=== PATIENT | male | born 1945 | race Caucasian/White ===

== ENCOUNTER 2024-07-21 10:53 | Emergency (ER) | payer MEDICARE, MEDICAID, SELFPAY ==
--- NOTE | 2024-07-21 10:52 | PC.NURSE ---
7.5ETT 24 AT LIP ON ARRIVAL SHIVA CONTINUES EPI GIVEN AT 1051 CALCIUM GIVEN AT 1051 18G L FOREARM AT 1052 BICARB AT 1052 SHIVA PAUSED AT 1053 ASYSTOLE NO FEM PULSE NOTED SHIVA RESUMED EPI AT 1054 SHIVA PAUSED AT 1055 NO CARDIAC WALL MOTION NO PALPABLE PULSE. TIME OF 1055.
--- NOTE | 2024-07-21 11:35 | ED_ITS ---
HPI - CPR General Chief Complaint: Cardiac Arrest/CPR Stated Complaint: cardiac arrest Time Seen by Provider: 07/21/24 11:01 History of Present Illness HPI narrative: 78-year-old male with no cardiac history presents to the emergency department from [facility] in cardiac arrest. Patient had a witnessed cardiac arrest as his roommate heard a loud thud in the room and noticed that the patient was on the ground, agonal respirations and barely breathing. 911 was called in EMS arrived and started chest compressions. Patient underwent high quality CPR with supraglottic airway established by EMS. Bilateral IVs were established by EMS. He received a total of 5 mg of epinephrine serially during resuscitative efforts prior to transport and arrival to the ED. Patient was PE a on the monitor the entire time for EMS. He was brought back into Room 9 as a medical resuscitation at this time with CPR ongoing. Review of Systems Review of Systems: ROS unobtainable: Yes unobtainable due to medical condition Exam Narrative: GENERAL: Cardiac arrest HEAD: [Normocephalic, atraumatic.] EYES: 4 mm, fixed and dilated ENT: Dry mucous membranes NECK: Supple. CHEST: Clear to auscultation with bag-valve mask HEART: Pulsations felt with Toni device in the femoral vessels otherwise no cardiac activity or heart sounds ABDOMEN: Distended EXTREMITIES: Normal range of motion. [No edema.] SKIN: Warm, dry, no rash. NEURO: GCS 3 Procedures Intubation Intubation #1: Intubation Date: 07/21/24 Intubation Time: 10:50 Time out performed: Yes sedative: none Mg Given: 0 Mg Given: 0 Laryngoscope: fiber optic video scope Tube Size (cm): 7.5 Method of Intubation: orotracheal Number of Attempts: 1 Tube Secured Depth (cm): 24 Tube Secured Location: lips Tube Placement Confirmation: visualized tube passing through cords, equal breath sounds bilaterally, no breath sounds over epigastrium and confirmation by capnometry Patient Tolerated Procedure: well and no complications Intubation Complications: none MDM - Cardiac Arrest/CPR MDM Narrative Medical decision making narrative: 78-year-old male presenting in cardiac arrest. Was witnessed cardiac arrest with PE a is initial rhythm. Total of 5 mg epinephrine EN route prior to arrival to the ER. Total down time prior to arrival 25 minutes. High-quality CPR was continued upon arrival to the emergency department. Additional IV access was established by nursing staff, supraglottic airway was exchanged for endotracheal tube without any difficulties on 1st pass success with glide scope. Initial pulse check showed asystole and he was given additional mg of epinephrine as well as calcium chloride and bicarbonate. Additional rounds of CPR conducted with serial pulse checks showing asystole despite resuscitative efforts. Cardiac views on ultrasound throughout resuscitation which shows cardiac standstill with clotting of blood left ventricle, total down time 35 minutes and additional CPR resuscitative efforts deemed futile. Time of called at 10:55 a.m by myself. I spoke to the 2 nieces which are his next of kin informed them of patient's presentation and here in the emergency department. All the questions were answered, view arrangements are made. Differential Diagnosis Differential diagnosis: Likely acute massive pulmonary embolism, acute respiratory failure, acute myocardial infarction, cardiac arrest, sudden cardiac and other Medical Records Attestation: I reviewed the patient's medical records. Critical Care Time Critical Care Time Critical Care Time: Yes Total Critical Care Time: 30 Discharge Plan Discharge Clinical Impression: Cardiac arrest Patient Disposition: Condition: Patient Language: Hungarian Follow-up/Referrals: Seymour,MD Regan [Primary Care Provider] - Time of Disposition: 10:55
--- OUTSIDE RECORDS SUMMARY | 2024-07-28 14:05 | XMS_ITS | Encounter Summary ---
Author Organization [facility] Address [address] [place] [address] Phone Care Team Providers Care Fill Manager Name Role Phone Irving Jeffries MD Primary Care Provider [phone] Ton Ling [employer], PROFESSOR OF PUBLIC ADMINISTRATION Unavailable Ame Scanlon [employer], PROFESSOR OF PUBLIC ADMINISTRATION Unavailable Michael Ahmadi MD Unavailable [phone] Reason for Visit * Reason Comments Fall Encounter Details Date Type Department Care Team (Late st Contact Info) Description 04/12/2024 1:35 PM CDT - 04/12/2024 2:18 PM CDT Emergency [facility] Emergency [address] [place] [id number] João Ba, DO [address] [place] [address] Fall Discharge Disposition: Discharged to home or Selfcare Social History Tobacco Use Types Packs/Day Years Used Date Smoking Tobacco: Former Cigarettes 2 20 Passive Smoke Exposure: Past Smokeless Tobacco: Never Alcohol Use Standard Drinks/Week Comments Not Currently 0 (1 standard drink = 0.6 oz pur e alcohol) [facility] Utilities Answer Date Recorded In the past 12 months has [employer], gas, oil, or water [employer] threatened to shut off services in your home? Patient declined 09/03/2023 Social Connection and Isolation Panel [NHANES] A nswer Date Recorded In a typical week, how many times do you talk on the phone with family, friends, or neighbors? Patient declined 09/03/2023 How often do you get togethe r with friends or relatives? Patient declined 09/03/2023 How often do you attend yazdanism or anabaptist serv ices? Patient declined 09/03/2023 Do you belong to any clubs o r organizations such as yazdanism groups, unions, fraternal or athletic groups, or school groups? Patient declined 09/03/2023 How often do you attend meet ings of the clubs or organizations you belong to? Patient declined 09/03/2023 Are you , , di vorced, , never , or living with a partner? Patient declined 09/03/2023 AUDIT-C Answer Date Recorded Q1: How often do you have a drink containing alc ohol? Patient declined 09/03/2023 Q2: How many drinks containi ng alcohol do you have on a typical day when you are drinking? Patient declined 09/03/2023 Q3: How often do you have si x or more drinks on one occasion? Patient declined 09/03/2023 Overall Financial Resource Strain (CARDIA) Answe r Date Recorded How hard is it for you to pa y for the very basics like food, housing, medical care, and heating? Patient declined 09/03/2023 PHQ-2 Answer Date Recorded Total Score - Questions 1-9 0 07/31 [facility] Occupat ional [facility] - Occupational Stress Questionnaire Answer Date Recorded Do you feel stress - tense, restless, nervous, or anxious, or unable to sleep at night because your mind is troubled all the time - these days? Patient declined 09/03/2023 Exercise Vital Sign Answer Date Recorde d On average, how many days pe r week do you engage in moderate to strenuous exercise (like a brisk walk)? Patient declined On average, how many minutes do you engage in exercise at this level? Patient declined 09/03/2023 Hunger Vital Sign Answer Date Recorded Within the past 12 months, y ou worried that your food would run out before you got the money to buy more. Patient declined Within the past 12 months, t he food you bought just didn't last and you didn't have money to get more. Patient declined 10/2023 PRAPARE - Transportation Answer Date Re corded In the past 12 months, has l ack of transportation kept you from medical appointments or from getting medications? Patient declined 09/03/2023 In the past 12 months, has l ack of transportation kept you from meetings, work, or from getting things needed for daily living? Patient declined 09/03/2023 Housing Stability Vital Sign Answer Matt e Recorded In the last 12 months, was t here a time when you were not able to pay the mortgage or rent on time? Patient declined 09/03/19 24 In the last 12 months, how many places have you lived? 1 09/03/2023 In the last 12 months, was t here a time when you did not have a steady place to sleep or slept in a assisted (including now)? Patient declined 09/03/2023 Sexually Active Control Partners Comments Never Sex and Gender Information Value Date Recorded Sex Assigned at Not on file Legal Sex Male 11:18 PM CDT Gender Identity Not on file Sexual Orientation Not on file documented as of this encounter Last Filed Vital Signs Vital Sign Reading Time Taken Comments Blood Pressure 113/81 04/12/2024 2:15 PM CDT Pulse 73 04/12/2024 2:15 PM CDT Temperature 36.2 ??C (97.2 ??F) 04/12/2024 11:33 AM C DT Respiratory Rate 18 04/12/2024 11:33 AM CDT Oxygen Saturation 96% 04/12/2024 2:15 PM CDT Inhaled Oxygen Concentration - - Weight 104.3 kg (230 lb) 04/12/2024 11:33 AM CDT Height 182.9 cm (6') 04/12/2024 11:33 AM CDT Body Mass Index 31.19 04/12/2024 11:33 AM CDT documented in this encounter Discharge Instructions * Discharge Instructions* João Ba, - 04/12/2024 1:59 PM CDT Follow up with your doctor within 24hrs Take Medications as prescribed. Return to ER immediately at anytime if symptoms worsen/ persists, chest pain, shortness of breath, lightheadedness, loss of consciousness, numbness/weakness/tingling in your arms or legs. If patient is using abdominal or rib muscles to breathe or breathing faster than normal. Return if fevers greater than 101, continuous vomiting, inability to drink fluids or tolerate solids by mouth, dehydration, lethargy, if patient not acting normally or any other concerns you may have. Please followup with your primary care doctor or the physician you have been given here in the emergency department prior to any travel. GO CARDINALS!!! GO BLUES !!! GO Spor!!! GO righTune!!! documented in this encounter Medications at Time of Discharge acetaminophen (TYLENOL) 325 MG Tablet Take 2 Tablets by mouth every 6 hours as needed for Mild or more severe pain. cloZAPine (CLOZARIL) 25 MG Tablet Take 50 mg by mouth nightly. Clozapine 50 MG Tablet 09/07/2023 finasteride (PROSCAR) 5 MG Tablet 09/11/2023 metoprolol tartrate (LOPRESSOR) 25 MG Tablet Take 25 mg by mouth 2 times daily. Psyllium (REGULOID PO) Take by mouth. sertraline (ZOLOFT) 50 MG Tablet Take 1 Tablet by mouth daily. tamsulosin (FLOMAX) 0.4 MG Capsule 09/11/2023 amLODIPine (NORVASC) 10 MG Tablet Take 1 Tablet by mouth daily. 30 Tablet 11 03/13/2024 4 cloZAPine (CLOZARIL) 100 MG Tablet Take 50 mg by mouth daily. 4 dexamethasone (DECADRON) 4 MG Tablet Take 5 tabs PO BID for 4 days 40 Tablet 01/18/2024 4 eltrombopag (Promacta) 50 MG Tablet Take 1 Tablet by mouth every morning (before breakfast). 30 Tablet 5 02/29/2024 4 omeprazole (PriLOSEC) 20 MG CAPSULE DELAYED RELEASE Take 1 Capsule by mouth in the morning and at bedtime. 60 Capsule 3 11/07/2023 4 polyethylene glycol (GLYCOLAX, MIRALAX) 17 g PackIndications: Constipation Take 1 Packet by mouth 2 times daily as needed for Constipation - 1st line. Dissolve in 4-8 oz of liquid. Indications: Constipation 90 Packet 09/05/2023 4 senna (SENOKOT) 8.6 MG Tablet Take 1 Tablet by mouth daily. 30 Tablet 09/05/2023 4 documented as of this encounter ED Notes * Shelley Cancino RN - 04/12/2024 2:18 PM CDT Patient discharged. Discharge instructions and patient educational material reviewed with patient; questions and concerns addressed; patient verbalizes understanding, using teach back. Patient was given 0 prescriptions. Patient discharged per wheelchair mode with self as responsible republican. * João Ba DO - 04/12/2024 1:59 PM CDT Chief Complaint Patient presents with Fall 78-year-old male brought in secondary to fall and possible head trauma and pain. Mild, constant, nonradiating, no alleviating factors, multiple fall history in the past, sent in from assisted. Denies any recent illness or sick contacts or any recent travel. Review of systems negative otherwise. No current facility-administered medications for this encounter. Current Outpatient Medications Medication Sig Dispense Refill acetaminophen (TYLENOL) 325 MG Tablet Take 2 Tablets by mouth every 6 hours as needed for Mild or more severe pain. amLODIPine (NORVASC) 10 MG Tablet Take 1 Tablet by mouth daily. 30 Tablet 11 cloZAPine (CLOZARIL) 100 MG Tablet Take 50 mg by mouth daily. (Patient not taking: Reported on 01/17/2024) cloZAPine (CLOZARIL) 25 MG Tablet Take 50 mg by mouth nightly. Clozapine 50 MG Tablet dexamethasone (DECADRON) 4 MG Tablet Take 5 tabs PO BID for 4 days (Patient not taking: Reported on04/03/2024) 40 Tablet 0 eltrombopag (Promacta) 50 MG Tablet Take 1 Tablet by mouth every morning (before breakfast). (Patient not taking: Reported on 04/03/2024) 30 Tablet 5 finasteride (PROSCAR) 5 MG Tablet metoprolol tartrate (LOPRESSOR) 25 MG Tablet Take 25 mg by mouth 2 times daily. omeprazole (PriLOSEC) 20 MG CAPSULE DELAYED RELEASE Take 1 Capsule by mouth in the morning and at bedtime. 60 Capsule 3 polyethylene glycol (GLYCOLAX, MIRALAX) 17 g Pack Take 1 Packet by mouth 2 times daily as needed for Constipation - 1st line. Dissolve in 4-8 oz of liquid. Indications: Constipation 90 Packet 0 Psyllium (REGULOID PO) Take by mouth. senna (SENOKOT) 8.6 MG Tablet Take 1 Tablet by mouth daily. 30 Tablet 0 sertraline (ZOLOFT) 50 MG Tablet Take 1 Tablet by mouth daily. tamsulosin (FLOMAX) 0.4 MG Capsule No Known Allergies Past Medical History Positives Diagnosis Date Anxiety Arthritis GERD (gastroesophageal reflux disease) Hyperlipidemia Hypertension Major depressive disorder Schizophrenia (HCC) Past Surgical History: Procedure Laterality Date NO PREVIOUS SURGERY Social History Socioeconomic History Marital status: Single Spouse name: Not on file Number of children: Not on file Years of education: Not on file Highest education level: Not on file Occupational History Not on file Tobacco Use Smoking status: Former Current packs/day: 2.00 Average packs/day: 2.0 packs/day for 20.0 years (40.0 ttl pk-yrs) Types: Cigarettes Passive exposure: Past Smokeless tobacco: Never Vaping Use Vaping status: Never Used Substance and Sexual Activity Alcohol use: Not Currently Drug use: Never Sexual activity: Never Other Topics Concern Not on file Social History Narrative Not on file Social Determinants of Health Financial Resource Needs: Patient Declined (09/03/2023) Overall Financial Resource Strain (CARDIA) Difficulty of Paying Living Expenses: Patient declined Food Insecurity Needs: Patient Declined (09/03/2023) Hunger Vital Sign Worried About Running Out of Food in the Last Year: Patient declined Ran Out of Food in the Last Year: Patient declined Transportation Needs: Patient Declined (09/03/2023) PRAPARE - Transportation Lack of Transportation (Medical): Patient declined Lack of Transportation (Non-Medical): Patient declined Physical Activity: Patient Declined (09/03/2023) Exercise Vital Sign Days of Exercise per Week: Patient declined Minutes of Exercise per Session: Patient declined Stress: Patient Declined (09/03/2023) [facility] - Occupational Stress Questionnaire Feeling of Stress : Patient declined Social Integration: Patient Declined (09/03/2023) Social Connection and Isolation Panel [NHANES] Frequency of Communication with Friends and Family: Patient declined Frequency of Social Gatherings with Friends and Family: Patient declined Attends Buddhism Services: Patient declined Active Member of Clubs or Organizations: Patient declined Attends Club or Organization Meetings: Patient declined Marital Status: Patient declined Intimate Partner Violence: Patient Declined (09/03/2023) Humiliation, Afraid, Rape, and Kick questionnaire Fear of Current or Ex-Partner: Patient declined Emotionally Abused: Patient declined Physically Abused: Patient declined Sexually Abused: Patient declined Housing Stability: Patient Declined (09/03/2023) Housing Stability Vital Sign Unable to Pay for Housing in the Last Year: Patient declined Number of Places Lived in the Last Year: 1 Unstable Housing in the Last Year: Patient declined BP 121/51 Pulse 72 Temp 97.2 ??F (36.2 ??C) (Tympanic) Resp 18 Ht 6' (1.829 m) Wt 230 lb (104.3 kg) SpO2 98% BMI 31.19 kg/m?? Review of Systems Physical Exam Vitals and nursing note reviewed. Constitutional: General: He is not in acute distress. Appearance: He is well-developed. He is not diaphoretic. Comments: Age-appropriate, well-appearing, dapper, no family at the bedside, no acute distress. HENT: Head: Normocephalic and atraumatic. Right Ear: External ear normal. Left Ear: External ear normal. Nose: Nose normal. Mouth/Throat: Mouth: Mucous membranes are moist. Pharynx: No oropharyngeal exudate. Eyes: General: Right eye: No discharge. Left eye: No discharge. Conjunctiva/sclera: Conjunctivae normal. Pupils: Pupils are equal, round, and reactive to light. Neck: Thyroid: No thyromegaly. Vascular: No JVD. Trachea: No tracheal deviation. Cardiovascular: Rate and Rhythm: Normal rate and regular rhythm. Heart sounds: Normal heart sounds. No murmur heard. Pulmonary: Effort: Pulmonary effort is normal. No respiratory distress. Breath sounds: Normal breath sounds. No wheezing or rales. Chest: Chest wall: No tenderness. Abdominal: General: Bowel sounds are normal. There is no distension. Palpations: Abdomen is soft. There is no mass. Tenderness: There is no abdominal tenderness. There is no guarding or rebound. Musculoskeletal: General: No tenderness. Normal range of motion. Cervical back: Normal range of motion and neck supple. Lymphadenopathy: Cervical: No cervical adenopathy. Skin: General: Skin is warm and dry. Capillary Refill: Capillary refill takes less than 2 seconds. Coloration: Skin is not pale. Findings: No erythema or rash. Neurological: Mental Status: He is alert and oriented to person, place, and time. Cranial Nerves: No cranial nerve deficit. Motor: No abnormal muscle tone. Coordination: Coordination normal. Deep Tendon Reflexes: Reflexes are normal and symmetric. Psychiatric: Behavior: Behavior normal. Thought Content: Thought content normal. Procedures Recent Results (from the past 24 hour(s)) POCT Glucose Result Value Ref Range GLUCOSE,BEDSIDE POCT 134 (H) 70 - 99 mg/dL CMP (Comprehensive Metabolic Panel) Result Value Ref Range SODIUM 138 136 - 145 mmol/L POTASSIUM 4.5 3.5 - 5.1 mmol/L CHLORIDE 107 98 - 107 mmol/L CO2, VENOUS 22 22 - 30 mmol/L ANION GAP 13.5 <18.0 mmol/L GLUCOSE 130 (H) 70 - 99 mg/dL BUN 16 8 - 26 mg/dL CREATININE, BLOOD 1.02 0.70 - 1.30 mg/dL BUN/CREATININE RATIO 16 12 - 20 ratio TOTAL PROTEIN 7.0 6.3 - 8.2 g/dL ALBUMIN 4.3 3.5 - 5.0 g/dL A/G RATIO 1.6 1.0 - 2.2 CALCIUM 9.2 8.7 - 10.5 mg/dL T BILI 0.3 0.2 - 1.2 mg/dL SGOT (AST) 22 5 - 34 U/L SGPT (ALT) 20 0 - 55 U/L ALKALINE PHOSPHATASE 77 40 - 150 U/L GFR, ESTIMATED >60 >=60 GFR, EST. >60 >=60 GFR, EST. NONAFRICAN >60 >=60 TROPONIN I, HIGH SENSITIVITY (HSTRP) Result Value Ref Range TROPONIN I, HIGH SENSITIVITY- GUTIERREZ 5 <=35 ng/L CBC with Auto Differential Result Value Ref Range WBC 8.24 4.00 - 12.00 10(3)/mcL RBC 4.46 4.40 - 5.80 10(6)/mcL HEMOGLOBIN (HGB) 13.8 13.0 - 16.5 g/dL HEMATOCRIT (HCT) 42.7 38.0 - 50.0 % MCV 95.7 82.0 - 96.0 fL MCH 30.9 26.0 - 32.0 pg MCHC 32.3 31.0 - 36.0 g/dL PLATELET COUNT 45 (L) 140 - 440 10(3)/mcL RDW 14.5 11.8 - 15.5 % MPV NRBC PER 100 WBC 0 RESULTS ARE CONSISTENT WITH PERIPHERAL SMEAR REVIEW Yes Imaging Results CT CERVICAL SPINE WO/ CONTRAST (Final result) Result time 04/12/24 13:30:23 Final result by Marcos Jimenez MD (04/12/24 13:30:23) Impression: IMPRESSION: No acute intracranial abnormality. No acute fracture or subluxation of the cervical spine. Narrative: EXAM DESCRIPTION: CT HEAD OR BRAIN WO CONTRAST; CT CERVICAL SPINE WO/ CONTRAST REASON FOR STUDY: Fall today without LOC, patient is unsure if he hit his head. Hx of HTN ; Ground level fall today with possible head trauma, patient is unsure if he struck his head. Hx of HTN TECHNIQUE: Axial images through the head and cervical spine, with sagittal and coronal reformatted images of the cervical spine. Automated exposure control was used as a dose optimization technique for this examination. COMPARISON: Head CT 09/03/2023 FINDINGS: HEAD: BRAIN: No acute intracranial hemorrhage, mass effect, or territorial infarct. Scattered hypodensities in the periventricular and subcortical white matter that are nonspecific but likely secondary to chronic microvascular ischemia. EXTRA-AXIAL SPACES: No abnormal extra-axial fluid collection or mass. No hydrocephalus. CALVARIUM: No acute fracture. SINUSES/MASTOIDS: Mild paranasal sinus mucosal thickening without air-fluid level. Mastoid air cells are well aerated. ORBITS: No significant abnormality. Bilateral lens replacements. OTHER: None. CERVICAL SPINE: ALIGNMENT: Slight anterolisthesis of C7 on T1. Normal craniocervical and facet alignment. VERTEBRAE: Vertebral body height is maintained with no acute fracture. DISCS: Multilevel disc height loss most advanced at C4-C7 levels. HARDWARE: None in the spine. INDIVIDUAL DISC LEVELS: Moderate cervical degenerative changes causing variable spinal canal and neural foraminal stenosis. UPPER THORACIC: Incompletely imaged. No high-grade osseous spinal canal stenosis. LUNG APICES: Pleural-parenchymal opacities characteristic of scarring. Apical emphysema. NECK SOFT TISSUES: No acute finding. OTHER: No other significant findings. THIS IS AN ELECTRONICALLY VERIFIED FINAL REPORT 04/12/2024 1:27 PM - Electronically signed by Marcos Jimenez M.D. AG: [facility] Report ID: [id number] Reading Location: [place] [address] CT HEAD OR BRAIN WO CONTRAST (Final result) Result time 04/12/24 13:30:23 Final result by Marcos Jimenez MD (04/12/24 13:30:23) Impression: IMPRESSION: No acute intracranial abnormality. No acute fracture or subluxation of the cervical spine. Narrative: EXAM DESCRIPTION: CT HEAD OR BRAIN WO CONTRAST; CT CERVICAL SPINE WO/ CONTRAST REASON FOR STUDY: Fall today without LOC, patient is unsure if he hit his head. Hx of HTN ; Ground level fall today with possible head trauma, patient is unsure if he struck his head. Hx of HTN TECHNIQUE: Axial images through the head and cervical spine, with sagittal and coronal reformatted images of the cervical spine. Automated exposure control was used as a dose optimization technique for this examination. COMPARISON: Head CT 09/03/2023 FINDINGS: HEAD: BRAIN: No acute intracranial hemorrhage, mass effect, or territorial infarct. Scattered hypodensities in the periventricular and subcortical white matter that are nonspecific but likely secondary to chronic microvascular ischemia. EXTRA-AXIAL SPACES: No abnormal extra-axial fluid collection or mass. No hydrocephalus. CALVARIUM: No acute fracture. SINUSES/MASTOIDS: Mild paranasal sinus mucosal thickening without air-fluid level. Mastoid air cells are well aerated. ORBITS: No significant abnormality. Bilateral lens replacements. OTHER: None. CERVICAL SPINE: ALIGNMENT: Slight anterolisthesis of C7 on T1. Normal craniocervical and facet alignment. VERTEBRAE: Vertebral body height is maintained with no acute fracture. DISCS: Multilevel disc height loss most advanced at C4-C7 levels. HARDWARE: None in the spine. INDIVIDUAL DISC LEVELS: Moderate cervical degenerative changes causing variable spinal canal and neural foraminal stenosis. UPPER THORACIC: Incompletely imaged. No high-grade osseous spinal canal stenosis. LUNG APICES: Pleural-parenchymal opacities characteristic of scarring. Apical emphysema. NECK SOFT TISSUES: No acute finding. OTHER: No other significant findings. THIS IS AN ELECTRONICALLY VERIFIED FINAL REPORT 04/12/2024 1:27 PM - Electronically signed by Marcos Jimenez M.D. AG: [employer] Report ID: [id number] Reading Location: [place] [address] Medical Decision Making No acute pathology at this time to warrant further workup per inpatient management. Patient notes headache has much improved, he is neurologically intact at this time. I have spoken with him at greatlength and he feels comfortable discharge home and follow-up as an outpatient with close family/frie nd observation in the outpatient setting. Clinical Impression 1. Fall 2. Acute head trauma, initial encounter Disposition: Discharge Disposition: Discharge home Condition:Stable CLINICAL IMPRESSION: 1. Fall 2. Acute head trauma, initial encounter Current Outpatient Medications Medication Instructions acetaminophen (TYLENOL) 325 MG Tablet 2 Tablets, Oral, EVERY 6 HOURS PRN amLODIPine (NORVASC) 10 mg, Oral, DAILY cloZAPine (CLOZARIL) 50 mg, DAILY cloZAPine (CLOZARIL) 50 mg, Oral, NIGHTLY Clozapine 50 MG Tablet dexamethasone (DECADRON) 4 MG Tablet Take 5 tabs PO BID for 4 days eltrombopag (PROMACTA) 50 mg, Oral, EVERY MORNING BEFORE BREAKFAST finasteride (PROSCAR) 5 MG Tablet No dose, route, or frequency recorded. metoprolol tartrate (LOPRESSOR) 25 mg, Oral, 2 TIMES DAILY omeprazole (PRILOSEC) 20 mg, Oral, 2 times daily polyethylene glycol (GLYCOLAX, MIRALAX) 17 g, Oral, 2 TIMES DAILY PRN, Dissolve in 4-8 oz of liquid. Psyllium (REGULOID PO) Oral senna (SENOKOT) 8.6 mg, Oral, DAILY sertraline (ZOLOFT) 50 MG Tablet 1 Tablet, Oral, DAILY tamsulosin (FLOMAX) 0.4 MG Capsule No dose, route, or frequency recorded. No current facility-administered medications on file prior to encounter. Current Outpatient Medications on File Prior to Encounter Medication Sig Dispense Refill acetaminophen (TYLENOL) 325 MG Tablet Take 2 Tablets by mouth every 6 hours as needed for Mild or more severe pain. amLODIPine (NORVASC) 10 MG Tablet Take 1 Tablet by mouth daily. 30 Tablet 11 cloZAPine (CLOZARIL) 100 MG Tablet Take 50 mg by mouth daily. (Patient not taking: Reported on 01/17/2024) cloZAPine (CLOZARIL) 25 MG Tablet Take 50 mg by mouth nightly. Clozapine 50 MG Tablet dexamethasone (DECADRON) 4 MG Tablet Take 5 tabs PO BID for 4 days (Patient not taking: Reported on04/03/2024) 40 Tablet 0 eltrombopag (Promacta) 50 MG Tablet Take 1 Tablet by mouth every morning (before breakfast). (Patient not taking: Reported on 04/03/2024) 30 Tablet 5 finasteride (PROSCAR) 5 MG Tablet metoprolol tartrate (LOPRESSOR) 25 MG Tablet Take 25 mg by mouth 2 times daily. omeprazole (PriLOSEC) 20 MG CAPSULE DELAYED RELEASE Take 1 Capsule by mouth in the morning and at bedtime. 60 Capsule 3 polyethylene glycol (GLYCOLAX, MIRALAX) 17 g Pack Take 1 Packet by mouth 2 times daily as needed for Constipation - 1st line. Dissolve in 4-8 oz of liquid. Indications: Constipation 90 Packet 0 Psyllium (REGULOID PO) Take by mouth. senna (SENOKOT) 8.6 MG Tablet Take 1 Tablet by mouth daily. 30 Tablet 0 sertraline (ZOLOFT) 50 MG Tablet Take 1 Tablet by mouth daily. tamsulosin (FLOMAX) 0.4 MG Capsule João Ba D.O. Emergency/Tactical Medicine Attention patients/caregivers: Secondary to the [employer] medical cares act notes and test results are now immediately released to patients and caregivers. If you are the patient referenced in this documentation or a caregiver thereof and are reading this chart, please be aware that there is medical terminology, abbreviations, and methods of communication which are intended for medical professional interpretation only. If you have questions, please contact your primary care provider. If there are specific physician's or contact information referenced in this chart do not use it as it may be out of date. Certain laboratory values or radiologic studies may have findings that appear abnormal, these were reviewed by your physician and do not require further emergent or urgent medical attention. If you have further questions about any testing performed please contact your primary care provider for clarification or further discussion. Portions of this chart may have been completed with voice recognition software and may contain slight errors unrecognizable by the users. This would in no way affect the patient's care and is meant to improve length and quality of medical decision making and history taking. * Rolando Chaudhry RN - 04/12/2024 11:33 AM CDT Arrived via [facility] with complaints of fall this AM. Patient denies LOC but does not remember if hehit his head. Patient denies any pain. Alert and oriented to place and situation documented in this encounter Miscellaneous Notes * PatientPass Patient Instructions - João Ba DO - 04/12/2024 1:59 PM CDT Images from the original note were not included. Patient Education Table of Contents Head Injury, Adult To view videos and all your education online visit, [email or web address] or scan this QR code with your smartphone. Access to this content will in one year. Head Injury, Adult There are many types of head injuries. Head injuries can be as minor as a small bump, or they can be a serious medical issue. More severe head injuries include: A jarring injury to the brain (concussion). A bruise (contusion) of the brain. This means there is bleeding in the brain that can cause swelling. A cracked skull (skull fracture). Bleeding in the brain that collects, clots, and forms a bump (hematoma). After a head injury, most problems occur within the first 24 hours, but side effects may occur up to 7?10 days after the injury. It is important to watch your condition for any changes. You may need to be observed in the emergency department or urgent care, or you may have to stay in the hospital. What are the causes? There are many causes of a head injury. Serious head injuries may be caused by car crashes, bicycleor motorcycle crashes, sports injuries, falls, or being struck by an object. What are the symptoms? Symptoms of a head injury include a contusion, bump, or bleeding at the site of the injury. Other physical symptoms may include: Headache. Nausea or vomiting. Dizziness. Blurred or double vision. Sensitivity to bright lights or loud noises. Feeling tired. Trouble waking up. Severe symptoms such as: ? Weakness or numbness on one side of the body. ? Slurred speech or swallowing problems. ? Loss of consciousness. ? Seizures. Mental symptoms may include: Irritability. Confusion and memory problems. Poor attention and concentration. Changes in eating or sleeping habits. Anxiety or depression. How is this diagnosed? This condition is diagnosed based on your symptoms and a physical exam. You may also have imaging tests done, such as a CT scan or an MRI. How is this treated? Treatment for this condition depends on the severity and type of injury you have. The main goal of treatment is to prevent complications and allow the brain time to heal. Mild head injury If you have a mild head injury, you may be sent home, and treatment may include: Observation. A responsible adult should stay with you for 24 hours after your injury and check on you often. Physical rest. Brain rest. Pain medicines. Severe head injury If you have a severe head injury, treatment may include: Close observation. You may have to stay in the hospital and have: ? Frequent physical exams. ? Frequent checks of how your brain and nervous system are working. ? Your blood pressure and oxygen levels checked. Medicines to relieve pain, prevent seizures, and decrease brain swelling. Airway protection and breathing support. This may include using a ventilator. Monitoring and managing swelling inside the brain. Brain surgery. Surgery may include: ? Removing a collection of blood or blood clots. ? Stopping the bleeding. ? Removing a part of the skull to make room for the brain to swell. Follow these instructions at home: Activity Rest. Avoid activities that are hard or tiring. Make sure you get enough sleep. Let your brain rest by limiting activities that take a lot of thought or attention, such as: ? Watching TV. ? Playing memory games and doing puzzles. ? Job-related work or homework. ? Working on the computer, using social media, and texting. Avoid activities that could cause another head injury, such as playing sports, until your health care provider approves. Ask your provider when it is safe for you to return to your regular activities, such as work or school. Ask your provider when you can drive, ride a bicycle, or use machinery. Your ability to react may be slower after a brain injury. Do not do these activities if you are dizzy. Lifestyle Do not drink alcohol until your provider approves. Do not use drugs. Alcohol and certain drugs may slow your recovery and can put you at risk of further injury. If it is hard to remember things, write them down. If you are easily distracted, try to do one thing at a time. Talk with family members or close friends when making important decisions. Tell your friends, family, a trusted colleague, and lavender [employer] worker about your injury, symptoms, and restrictions. Ask them to watch for any problems that are new or get worse. General instructions Take [id number] and prescription medicines only as told by your provider. Have a responsible adult stay with you for 24 hours after your head injury. They should watch you for any changes in your symptoms and be ready to get help right away. Keep all follow-up visits to make sure your needs are being met and catch any new problems early. How is this prevented? Avoiding another brain injury is very important. In rare cases, another injury can lead to permanent brain damage, brain swelling, or . The risk of this is greatest during the first 7?10 days after a head injury. To avoid injuries: Improve your balance and strength to avoid falls. Wear a seat belt when you are in a moving vehicle. Wear a helmet when riding a bicycle, skiing, or doing any other sport that has a risk of injury. Take safety measures in your home to prevent falls, such as: ? Removing clutter and tripping hazards. ? Using grab bars in bathrooms and handrails by stairs. ? Placing non-slip mats on floors and in bathtubs. ? Improving lighting in dim areas. Where to find more information Brain Injury Association: biausa.org Contact a health care provider if: You have headaches that do not go away. You have dizziness that does not go away. You have double vision or vision changes that do not go away. You have difficulty sleeping. You have changes in your mood. You have new symptoms. Get help right away if: You have sudden: ? Severe headache. ? Severe vomiting. ? Unequal pupil size. One is bigger than the other. ? Vision problems. ? Confusion or irritability. You have a seizure. Your symptoms get worse. You have clear or bloody fluid coming from your nose or ears. These symptoms may be an emergency. Get help right away. Call 911. Do not wait to see if the symptoms will go away. Do not drive yourself to the hospital. This information is not intended to replace advice given to you by your health care provider. Make sure you discuss any questions you have with your health care provider. Document Released: 2006-07-17 Document Updated: 2023-05-04 Document Reviewed: 2023-05-04 [employer] Patient Education ? 2023 [employer]. documented in this encounter Plan of Treatment Not on file documented as of this encounter Procedures Procedure Name Priority Date/Time Associated Diagnosis Comments CT CERVICAL SPINE WO/ CONTRAST Stat with Interpretation 04/12/2024 12:[address] HEAD OR BRAIN WO CONTRAST Stat with Interpretation 04/12/2024 12:35 PM CDT TROPONIN I, HIGH SENSITIVITY (HSTRP) STAT 04/12/2024 11:51 AM CDT MANUAL DIFFERENTIAL STAT 04/12/2024 11:51 AM CDT CBC WITH AUTO DIFFERENTIAL STAT 04/12/2024 11:51 AM CDT CMP (COMPREHENSIVE METABOLIC PANEL) STAT 04/12/2024 11:51 AM CDT COMPLETE BLOOD COUNT (CBC) WITH DIFF STAT 04/12/2024 11:51 AM CDT POCT GLUCOSE STAT 04/12/2024 11:47 AM CDT EKG 12 LEAD STAT 04/12/2024 11:42 AM CDT EKG SCAN 04/12/2024 12:00 AM CDT documented in this encounter Results * CT CERVICAL SPINE WO/ CONTRAST (04/12/2024 12:44 PM CDT) Anatomical Region Laterality Modality Spine N/A Computed Tomogra phy 04/12/2024 1:27 PM CDT Impressions 04/12/2024 1:30 PM CDT IMPRESSION: No acute intracranial abnormality. No acute fracture or subluxation of the cervical spine. ?? Narrative 04/12/2024 1:30 PM CDT EXAM DESCRIPTION: ?? CT HEAD OR BRAIN WO CONTRAST; CT CERVICAL SPINE WO/ CONTRAST REASON FOR STUDY: Fall today without LOC, patient is unsure if he hit his head. Hx of HTN ??; Ground level fall today with possible head trauma, patient is unsure if he struck his head. Hx of HTN ?? TECHNIQUE: Axial images through the head and cervical spine, with sagittal and coronal reformatted images of the cervical spine. Automated exposure control was used as a dose optimization technique for this examination. COMPARISON: Head CT 09/03/2023 FINDINGS: ??HEAD: BRAIN: No acute intracranial hemorrhage, mass effect, or territorial infarct. ??Scattered hypodensities in the periventricular and subcortical white matter that are nonspecific but likely secondary to chronic microvascular ischemia. ?? EXTRA-AXIAL SPACES: ??No abnormal extra-axial fluid collection or mass. ??No hydrocephalus. CALVARIUM: ??No acute fracture. SINUSES/MASTOIDS: ??Mild paranasal sinus mucosal thickening without air-fluid level. ??Mastoid air cells are well aerated. ORBITS: ??No significant abnormality. ?? Bilateral lens replacements. OTHER: ??None. CERVICAL SPINE: ALIGNMENT: ??Slight anterolisthesis of C7 on T1. ??Normal craniocervical and facet alignment. VERTEBRAE: ??Vertebral body height is maintained with no acute fracture. DISCS: ??Multilevel disc height loss most advanced at C4-C7 levels. HARDWARE: ??None in the spine. INDIVIDUAL DISC LEVELS: ??Moderate cervical degenerative changes causing variable spinal canal and neural foraminal stenosis. UPPER THORACIC: ??Incompletely imaged. No high-grade osseous spinal canal stenosis. LUNG APICES: ??Pleural-parenchymal opacities characteristic of scarring. ??Apical emphysema. NECK SOFT TISSUES: ??No acute finding. OTHER: ??No other significant findings. THIS IS AN ELECTRONICALLY VERIFIED FINAL REPORT 04/12/2024 1:27 PM - Electronically signed by ??Marcos Jimenez M.D. AG: VASILE D: ??04/12/2024 1:27 PM T: ??04/12/2024 1:27 PM Report ID: [id number] Reading Location: ??[id number] Procedure Note Marcos Jimenez MD - 04/12/2024 EXAM DESCRIPTION: CT HEAD OR BRAIN WO CONTRAST; CT CERVICAL SPINE WO/ CONTRAST REASON FOR STUDY: Fall today without LOC, patient is unsure if he hit his head. Hx of HTN ; Ground level fall today with possible head trauma, patient is unsure if he struck his head. Hx of HTN TECHNIQUE: Axial images through the head and cervical spine, with sagittal and coronal reformatted images of the cervical spine. Automated exposure control was used as a dose optimization technique for this examination. COMPARISON: Head CT 09/03/2023 FINDINGS: HEAD: BRAIN: No acute intracranial hemorrhage, mass effect, or territorial infarct. Scattered hypodensities in the periventricular and subcortical white matter that are nonspecific but likely secondary to chronic microvascular ischemia. EXTRA-AXIAL SPACES: No abnormal extra-axial fluid collection or mass. No hydrocephalus. CALVARIUM: No acute fracture. SINUSES/MASTOIDS: Mild paranasal sinus mucosal thickening without air-fluid level. Mastoid air cells are well aerated. ORBITS: No significant abnormality. Bilateral lens replacements. OTHER: None. CERVICAL SPINE: ALIGNMENT: Slight anterolisthesis of C7 on T1. Normal craniocervical and facet alignment. VERTEBRAE: Vertebral body height is maintained with no acute fracture. DISCS: Multilevel disc height loss most advanced at C4-C7 levels. HARDWARE: None in the spine. INDIVIDUAL DISC LEVELS: Moderate cervical degenerative changes causing variable spinal canal and neural foraminal stenosis. UPPER THORACIC: Incompletely imaged. No high-grade osseous spinal canal stenosis. LUNG APICES: Pleural-parenchymal opacities characteristic of scarring. Apical emphysema. NECK SOFT TISSUES: No acute finding. OTHER: No other significant findings. THIS IS AN ELECTRONICALLY VERIFIED FINAL REPORT 04/12/2024 1:27 PM - Electronically signed by Marcos Jimenez M.D. AG: VASILE Report ID: [id number] Reading Location: [id number] IMPRESSION: No acute intracranial abnormality. No acute fracture or subluxation of the cervical spine. us Elvira Yee APRN, PROFESSOR OF PUBLIC ADMINISTRATION IMG CT ORDERABLES Fin al Result * CT HEAD OR BRAIN WO CONTRAST (04/12/2024 12:35 PM CDT) Anatomical Region Laterality Modality Head N/A Computed Tomogra phy 04/12/2024 1:27 PM CDT Impressions 04/12/2024 1:30 PM CDT IMPRESSION: No acute intracranial abnormality. No acute fracture or subluxation of the cervical spine. ?? Narrative 04/12/2024 1:30 PM CDT EXAM DESCRIPTION: ?? CT HEAD OR BRAIN WO CONTRAST; CT CERVICAL SPINE WO/ CONTRAST REASON FOR STUDY: Fall today without LOC, patient is unsure if he hit his head. Hx of HTN ??; Ground level fall today with possible head trauma, patient is unsure if he struck his head. Hx of HTN ?? TECHNIQUE: Axial images through the head and cervical spine, with sagittal and coronal reformatted images of the cervical spine. Automated exposure control was used as a dose optimization technique for this examination. COMPARISON: Head CT 09/03/2023 FINDINGS: ??HEAD: BRAIN: No acute intracranial hemorrhage, mass effect, or territorial infarct. ??Scattered hypodensities in the periventricular and subcortical white matter that are nonspecific but likely secondary to chronic microvascular ischemia. ?? EXTRA-AXIAL SPACES: ??No abnormal extra-axial fluid collection or mass. ??No hydrocephalus. CALVARIUM: ??No acute fracture. SINUSES/MASTOIDS: ??Mild paranasal sinus mucosal thickening without air-fluid level. ??Mastoid air cells are well aerated. ORBITS: ??No significant abnormality. ?? Bilateral lens replacements. OTHER: ??None. CERVICAL SPINE: ALIGNMENT: ??Slight anterolisthesis of C7 on T1. ??Normal craniocervical and facet alignment. VERTEBRAE: ??Vertebral body height is maintained with no acute fracture. DISCS: ??Multilevel disc height loss most advanced at C4-C7 levels. HARDWARE: ??None in the spine. INDIVIDUAL DISC LEVELS: ??Moderate cervical degenerative changes causing variable spinal canal and neural foraminal stenosis. UPPER THORACIC: ??Incompletely imaged. No high-grade osseous spinal canal stenosis. LUNG APICES: ??Pleural-parenchymal opacities characteristic of scarring. ??Apical emphysema. NECK SOFT TISSUES: ??No acute finding. OTHER: ??No other significant findings. THIS IS AN ELECTRONICALLY VERIFIED FINAL REPORT 04/12/2024 1:27 PM - Electronically signed by ??Marcos Jimenez M.D. AG: AG D: ??04/12/2024 1:27 PM T: ??04/12/2024 1:27 PM Report ID: [id number] Reading Location: ??[id number] Procedure Note Marcos Jimenez MD - 04/12/2024 EXAM DESCRIPTION: CT HEAD OR BRAIN WO CONTRAST; CT CERVICAL SPINE WO/ CONTRAST REASON FOR STUDY: Fall today without LOC, patient is unsure if he hit his head. Hx of HTN ; Ground level fall today with possible head trauma, patient is unsure if he struck his head. Hx of HTN TECHNIQUE: Axial images through the head and cervical spine, with sagittal and coronal reformatted images of the cervical spine. Automated exposure control was used as a dose optimization technique for this examination. COMPARISON: Head CT 09/03/2023 FINDINGS: HEAD: BRAIN: No acute intracranial hemorrhage, mass effect, or territorial infarct. Scattered hypodensities in the periventricular and subcortical white matter that are nonspecific but likely secondary to chronic microvascular ischemia. EXTRA-AXIAL SPACES: No abnormal extra-axial fluid collection or mass. No hydrocephalus. CALVARIUM: No acute fracture. SINUSES/MASTOIDS: Mild paranasal sinus mucosal thickening without air-fluid level. Mastoid air cells are well aerated. ORBITS: No significant abnormality. Bilateral lens replacements. OTHER: None. CERVICAL SPINE: ALIGNMENT: Slight anterolisthesis of C7 on T1. Normal craniocervical and facet alignment. VERTEBRAE: Vertebral body height is maintained with no acute fracture. DISCS: Multilevel disc height loss most advanced at C4-C7 levels. HARDWARE: None in the spine. INDIVIDUAL DISC LEVELS: Moderate cervical degenerative changes causing variable spinal canal and neural foraminal stenosis. UPPER THORACIC: Incompletely imaged. No high-grade osseous spinal canal stenosis. LUNG APICES: Pleural-parenchymal opacities characteristic of scarring. Apical emphysema. NECK SOFT TISSUES: No acute finding. OTHER: No other significant findings. THIS IS AN ELECTRONICALLY VERIFIED FINAL REPORT 04/12/2024 1:27 PM - Electronically signed by Marcos Jimenez M.D. AG: AG Report ID: [id number] Reading Location: [place] [id number] IMPRESSION: No acute intracranial abnormality. No acute fracture or subluxation of the cervical spine. Elvira Yee [employer], PROFESSOR OF PUBLIC ADMINISTRATION IMG CT ORDERABLES Fin al Result * (ABNORMAL) Manual Differential (04/12/2024 11:51 AM CDT) NEUTROPHILS % 59.0 40.0 - 68.0 % 04/12/2024 2:43 PM CDT [facility] LYMPHOCYTES % 10.0(L) 19.0 - 49.0 % 04/12/2024 2:43 PM CDT [facility] MONOCYTES % 31.0(H) 3.0 - 13.0 % 04/12/2024 2:43 PM CDT [facility] NEUTROPHILS ABSOLUTE 4.86 1.50 - 6.70 10(3)/mc L 04/12/2024 2:43 PM CDT [facility] LYMPHOCYTES ABSOLUTE 0.82(L) 0.90 - 3.30 10(3)/mc L 04/12/2024 2:43 PM CDT [facility] MONOCYTES ABSOLUTE 2.55(H) 0.10 - 0.90 10(3)/mc L 04/12/2024 2:43 PM CDT [facility] Slide Review Reviewed By Pathologist 04/12/2024 2:43 PM CDT [facility] LARGE PLATELETS 1+ 2:43 PM CDT [facility] Comment:Slight platelet clum ping seen, may falsely decrease platelet count WBC MORPH STATUS Normal 04/12/20 2:43 PM CDT [facility] RBC MORPH STATUS Normal 04/12/20 2:43 PM CDT [facility] PATHOLOGY SMEAR REVIEW INTERPRETATION Reviewed by pathologist 04/12/[address] Dockery 04/12/2024 2:43 PM CDT [facility] Blood Venipuncture / Unknown 04/12/2024 11:51 AM CDT 04/12/2024 12:02 PM CDT Elvira Yee APRN, PROFESSOR OF PUBLIC ADMINISTRATION HEMATOLOGY ORDERABLES Final Result [facility] [address] [place] [address] * (ABNORMAL) CBC with Auto Differential (04/12/2024 11:51 AM CDT) WBC 8.24 4.00 - 12.00 10(3)/mcL 04/12/2024 2:43 PM CDT [facility] RBC 4.46 4.40 - 5.80 10(6)/mcL 04/12/2024 2:43 PM CDT [facility] HEMOGLOBIN (HGB) 13.8 13.0 - 16.5 g/dL 04/12/2024 2:43 PM CDT [facility] HEMATOCRIT (HCT) 42.7 38.0 - 50.0 % 04/12/2024 2:43 PM CDT [facility] MCV 95.7 82.0 - 96.0 fL 04/12/2024 2:43 PM CDT [facility] MCH 30.9 26.0 - 32.0 pg 04/12/2024 2:43 PM CDT [facility] MCHC 32.3 31.0 - 36.0 g/dL 04/12/2024 2:43 PM CDT [facility] PLATELET COUNT 45(L) 140 - 440 10(3)/mcL 04/12/2024 2:43 PM CDT [facility] RDW 14.5 11.8 - 15.5 % 04/12/2024 2:43 PM CDT [facility] MPV 04/12/2024 2:43 PM CDT [facility] NRBC PER 100 WBC 0 04/12/2024 2:43 PM CDT [facility] RESULTS ARE CONSISTENT WITH PERIPHERAL SMEAR REVIEW Yes 04/12/2024 2:43 PM CDT [facility] Blood Venipuncture / Unknown 04/12/2024 11:51 AM CDT 04/12/2024 12:02 PM CDT Elvira Yee [employer], PROFESSOR OF PUBLIC ADMINISTRATION HEMATOLOGY ORDERABLES Final Result Performing Organization Address City/[facility]/ZIP Co de Phone Number [facility] [place] [address] * TROPONIN I, HIGH SENSITIVITY (HSTRP) (04/12/2024 11:51 AM CDT) [facility] TROPONIN I, HIGH SENSITIVITY- [facility] 5 <=35 ng/L 04/12/2024 12:28 PM CDT [facility] Comment: High-sensitivity troponin I results are reported in ng/L making the result appear to be 1,000 times higher than the contemporary troponin I value which is reported in ng/ml. Results from [facility]. Blood Venipuncture / Unknown 04/12/2024 11:51 AM CDT 04/12/2024 12:02 PM CDT us Elvira Yee [employer], PROFESSOR OF PUBLIC ADMINISTRATION CHEMISTRY ORDERABLES Final Result [facility] [place] [address] * (ABNORMAL) CMP (Comprehensive Metabolic Panel) (04/12/2024 11:51 AM CDT) Pathologist [facility] SODIUM 138 136 - 145 mmol/L 04/12/2024 12:23 PM CDT [facility] POTASSIUM 4.5 3.5 - 5.1 mmol/L 04/12/2024 12:23 PM CDT [facility] CHLORIDE 107 98 - 107 mmol/L 04/12/2024 12:23 PM T [facility] CO2, VENOUS 22 22 - 30 mmol/L 04/12/2024 12:23 PM T [facility] ANION GAP 13.5 <18.0 mmol/L 04/12/2024 12:23 PM CDT [facility] GLUCOSE 130(H) 70 - 99 mg/dL 04/12/2024 12:23 PM CDT [facility] BUN 16 8 - 26 mg/dL 04/12/2024 12:23 PM T [facility] CREATININE, BLOOD 1.02 0.70 - 1.30 mg/dL 04/12/2024 12:23 PM T [facility] BUN/CREATININE RATIO 16 12 - 20 ratio 04/12/2024 12:23 PM T [facility] TOTAL PROTEIN 7.0 6.3 - 8.2 g/dL 04/12/2024 12:23 PM T [facility] ALBUMIN 4.3 3.5 - 5.0 g/dL 04/12/2024 12:23 PM T [facility] A/G RATIO 1.6 1.0 - 2.2 04/12/2024 12:23 PM T [facility] CALCIUM 9.2 8.7 - 10.5 mg/dL 04/12/2024 12:23 PM T [facility] T BILI 0.3 0.2 - 1.2 mg/dL 04/12/2024 12:23 PM T [facility] SGOT (AST) 22 5 - 34 U/L 04/12/2024 12:23 PM T [facility] SGPT (ALT) 20 0 - 55 U/L 04/12/2024 12:23 PM CDT [facility] ALKALINE PHOSPHATASE 77 40 - 150 U/L 04/12/2024 12:23 PM T [facility] GFR, ESTIMATED >60 >=60 04/12/2024 12:23 PM CDT [facility] Comment: Creatinine Clearance is the preferred criteria for selecting drug dose adjustments in renally impaired patients. ??The GFR is provided as additional pertinent clinical information. GFR is reported in mL/min/1.73 sq m. Calculation based on the Chronic Kidney Disease Epidemiology Collaboration (CKD- EPI) equation refit without adjustment for race. GFR, EST. >60 >=60 024 12:23 PM CDT [facility] GFR, EST. NONAFRICAN >60 >=60 04/12/2024 12:23 PM CDT [facility] Blood Venipuncture / Unknown 04/12/2024 11:51 AM CDT 04/12/2024 12:02 PM CDT us Elvira Yee APRN, PROFESSOR OF PUBLIC ADMINISTRATION CHEMISTRY ORDERABLES Final Result Performing Organization Address City/[facility] Co de Phone Number [facility] [place] [address] * (ABNORMAL) POCT Glucose (04/12/2024 11:47 AM CDT) [facility] GLUCOSE,BEDSIDE POCT 134(H) 70 - 99 mg/dL 04/12/2024 11:55 AM CDT [facility] Comment: RN Notified ROLANDO CHAUDHRY Blood 04/12/2024 11:4 7 AM CDT 04/12/2024 11:55 AM CDT us None Provider POINT OF CARE TESTING Final Resu lt Performing Organization Address City/[facility]/ZIP Co de Phone Number [facility] [place] [address] * EKG 12 LEAD (04/12/2024 11:42 AM CDT) [facility] Signature Ventricular Rate 73 BPM EXTERNAL EKG Atrial Rate 357 BPM EXTERNAL EKG QRS Duration 74 ms EXTERNAL EKG Q-T Duration 382 ms EXTERNAL EKG QTC CALCULATION 420 ms EXTERNAL EKG P [place] 253 degrees EXTERNAL EKG R [place] -2 degrees EXTERNAL EKG T [place] 32 degrees EXTERNAL EKG 04/12/2024 11:4 2 AM CDT Impressions EXTERNAL EKG - 04/16/2024 9:27 AM CDT Atrial flutter with 5:1 AV conduction Abnormal ECG When compared with ECG of 03-SEP-2023 02:02, Atrial flutter has replaced Sinus rhythm Vent. rate has decreased BY ??38 BPM ~ Confirmed by Romain Calvo ([id number]) on 04/16/2024 9:27:04 AM Narrative Procedure Note Romain Calvo MD - 04/16/2024 IMPRESSION: Atrial flutter with 5:1 AV conduction Abnormal ECG When compared with ECG of 03-SEP-2023 02:02, Atrial flutter has replaced Sinus rhythm Vent. rate has decreased BY 38 BPM ~ Confirmed by Romain Calvo ([id number]) on 04/16/2024 9:27:04 AM Elvira Yee APRN PROFESSOR OF PUBLIC ADMINISTRATION IMG ECG ORDERABLES Fi nal Result Performing Organization Address City/[facility] Co de Phone Number EXTERNAL EKG * EKG SCAN (04/12/2024 12:00 AM CDT) 04/12/2024 us Provider Scan IMG ECG ORDERABLES Final Result RESULTING AGENCY documented in this encounter Visit Diagnoses Diagnosis Fall Unspecified fall Acute head trauma, initial encounter documented in this encounter Additional Health Concerns Assessment Noted Time PHQ-9 Depression Total Score: 0 08/14/19 24 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
--- OUTSIDE RECORDS SUMMARY | 2024-07-28 14:05 | XMS_ITS | Encounter Summary ---
Author Organization [facility] Address [address] [facility] [place] [address] Phone Care Team Providers Care Concrete Mixer Truck Driver Name Role Phone Irving Jeffries MD Primary Care Provider Ton Ling BUILDING ENERGY CONSULTANT, CLINICAL BIOCHEMICAL GENETICIST Unavailable Ame Scanlon BUILDING ENERGY CONSULTANT, CLINICAL BIOCHEMICAL GENETICIST Unavailable Michael Ahmadi MD Unavailable Encounter Details Date Type Department Care Team (Late st Contact Info) Description 07/04/2024 9:00 AM RADIOLOGIST CHIEF OF BREAST IMAGING Lab [facility] Oncology Services [address] [place] [id number] Michael Ahmadi MD [address] [place] [address] Chronic ITP (idiopathic thrombocytopenia) (HCC) Discharge Disposition: Discharged to home or Selfcare Social History Tobacco Use Types Packs/Day Years Used Date Smoking Tobacco: Former Cigarettes 2 20 Passive Smoke Exposure: Past Smokeless Tobacco: Never Alcohol Use Standard Drinks/Week Comments Not Currently 0 (1 standard drink = 0.6 oz pur e alcohol) [facility] Utilities Answer Date Recorded In the past 12 months has e electric, gas, oil, or water company threatened to shut off services in your home? Patient declined 09/03/2023 Social Connection and Isolation Panel [NHANES] A nswer Date Recorded In a typical week, how many times do you talk on the phone with family, friends, or neighbors? Patient declined 09/03/2023 How often do you get togethe r with friends or relatives? Patient declined 09/03/2023 How often do you attend hindu or uatsdin serv ices? Patient declined 09/03/2023 Do you belong to any clubs o r organizations such as hindu groups, unions, fraternal or athletic groups, or [...] Total Score - Questions 1-9 0 07/31 [facility] - Occupational Stress Questionnaire Answer Date Recorded [...] place to sleep or slept in a care home (including now)? Patient declined 09/03/2023 Sexually Active Control Partners Comments Never Sex and Gender Information Value Date Recorded Sex Assigned at Not on file Legal Sex Male 11:18 PM CDT Gender Identity Not on file Sexual Orientation Not on file documented as of this encounter Last Filed Vital Signs Vital Sign Reading Time Taken Comments Blood Pressure - - Pulse - - Temperature - - Respiratory Rate - - Oxygen Saturation - - Inhaled Oxygen Concentration - - Weight 90 kg (198 lb 8 oz) 07/04/2024 7:00 AM CS T Height - - Body Mass Index 26.92 05/14/2024 10:09 AM CDT documented in this encounter Progress Notes * Annabel Sosa RN - 07/04/2024 9:00 AM CST Pt ambulated back to lab room. Discussed labs needed for the day, verbalized understanding. Labs drawn from RAC, pt tolerated well, gauze and coband placed. Pt ambulated out of lab room in stable condition. OLOGIST CHIEF OF BREAST IMAGING documented in this encounter Plan of Treatment Not on file documented as of this encounter Procedures Procedure Name Priority Date/Time Associated Diagnosis Comments CBC WITH AUTO DIFFERENTIAL Routine 07/04/2024 8:47 AM RADIOLOGIST CHIEF OF BREAST IMAGING Chronic ITP (idiopathic thrombocytopenia) (HCC) CMP (COMPREHENSIVE METABOLIC PANEL) Routine 07/04/2024 8:47 AM RADIOLOGIST CHIEF OF BREAST IMAGING Chronic ITP (idiopathic thrombocytopenia) (HCC) COMPLETE BLOOD COUNT (CBC) WITH DIFF Routine 07/04/2024 8:47 AM RADIOLOGIST CHIEF OF BREAST IMAGING Chronic ITP (idiopathic thrombocytopenia) (HCC) documented in this encounter Results * (ABNORMAL) CBC WITH AUTO DIFFERENTIAL (07/04/2024 8:47 AM [facility]) WBC 11.25 4.00 - 12.00 10(3)/mcL 07/04/2024 9:19 AM [facility] RBC 4.02(L) 4.40 - 5.80 10(6)/mcL 07/04/2024 9:19 AM [facility] HEMOGLOBIN (HGB) 12.3(L) 13.0 - 16.5 g/dL 07/04/2024 9:19 AM [facility] HEMATOCRIT (HCT) 37.9(L) 38.0 - 50.0 % 07/04/2024 9:19 AM [facility] MCV 94.3 82.0 - 96.0 fL 07/04/2024 9:19 AM [facility] MCH 30.6 26.0 - 32.0 pg 07/04/2024 9:19 AM [facility] MCHC 32.5 31.0 - 36.0 g/dL 07/04/2024 9:19 AM [facility] PLATELET COUNT 154 140 - 440 10(3)/mcL 07/04/2024 9:19 AM [facility] RDW 13.9 11.8 - 15.5 % 07/04/2024 9:19 AM [facility] MPV 07/04/2024 9:19 AM [facility] NEUTROPHILS 70.7(H) 40.0 - 68.0 % 07/04/2024 9:19 AM [facility] LYMPHOCYTES 10.8(L) 19.0 - 49.0 % 07/04/2024 9:19 AM [facility] MONOCYTES 18.0(H) 3.0 - 13.0 % 07/04/2024 9:19 AM [facility] EOSINOPHILS 0.1 0.0 - 8.0 % 07/04/2024 9:19 AM [facility] BASOPHILS 0.4 0.0 - 1.0 % 07/04/2024 9:19 AM [facility] ABSOLUTE NEUTROPHILS 7.95(H) 1.40 - 5.30 10(3)/[facility] 07/04/2024 9:19 AM [facility] ABSOLUTE LYMPHOCYTES 1.21 0.90 - 3.30 10(3)/[facility] 07/04/2024 9:19 AM [facility] ABSOLUTE MONOCYTES 2.03(H) 0.10 - 0.90 10(3)/[facility] 07/04/2024 9:19 AM [facility] ABSOLUTE EOSINOPHIL 0.01 0.00 - 0.50 10(3)/[facility] 07/04/2024 9:19 AM [facility] ABSOLUTE BASOPHILS 0.05 0.00 - 0.10 10(3)/[facility] 07/04/2024 9:19 AM [facility] NRBC PER 100 WBC 0 07/04/20 9:19 AM [facility] RESULTS ARE CONSISTENT WITH PERIPHERAL SMEAR REVIEW Yes 07/04/2024 9:19 AM [facility] RBC MORPHOLOGY CONSISTENT WITH INDICES Yes 07/04/2024 9:19 AM [facility] LARGE PLATELETS 1+ 9:19 AM [facility] Blood Venipuncture / Unknown 07/04/2024 8:47 AM RADIOLOGIST CHIEF OF BREAST IMAGING 07/04/2024 8:47 AM RADIOLOGIST CHIEF OF BREAST IMAGING us Michaelfreya Ahmadi MD HEMATOLOGY ORDERABLES Fi nal Result [facility] [address] [place] [address] * (ABNORMAL) CMP (COMPREHENSIVE METABOLIC PANEL) (07/04/2024 8:47 AM RADIOLOGIST CHIEF OF BREAST IMAGING) SODIUM 136 136 - 145 mmol/L 07/04/2024 9:17 AM [facility] POTASSIUM 4.3 3.5 - 5.1 mmol/L 07/04/2024 9:17 AM [facility] CHLORIDE 106 98 - 107 mmol/L 07/04/2024 9:17 AM [facility] CO2, VENOUS 20(L) 22 - 30 mmol/L 07/04/2024 9:17 AM [facility] ANION GAP 14.3 <18.0 mmol/L 07/04/2024 9:17 AM [facility] GLUCOSE 108(H) 70 - 99 mg/dL 07/04/2024 9:17 AM [facility] BUN 16 8 - 26 mg/dL 07/04/2024 9:17 AM [facility] CREATININE, BLOOD 0.78 0.70 - 1.30 mg/dL 07/04/2024 9:17 AM [facility] BUN/CREATININE RATIO 21(H) 12 - 20 ratio 07/04/2024 9:17 AM [facility] TOTAL PROTEIN 6.6 6.3 - 8.2 g/dL 07/04/2024 9:17 AM [facility] ALBUMIN 3.9 3.5 - 5.0 g/dL 07/04/2024 9:17 AM [facility] A/G RATIO 1.4 1.0 - 2.2 07/04/2024 9:17 AM [facility] CALCIUM 8.9 8.7 - 10.5 mg/dL 07/04/2024 9:17 AM [facility] T BILI 0.4 0.2 - 1.2 mg/dL 07/04/2024 9:17 AM [facility] SGOT (AST) 30 5 - 34 U/L 07/04/2024 9:17 AM RADIOLOGIST CHIEF OF BREAST IMAGING [facility] SGPT (ALT) 29 0 - 55 U/L 07/04/2024 9:17 AM RADIOLOGIST CHIEF OF BREAST IMAGING [facility] ALKALINE PHOSPHATASE 136 40 - 150 U/L 07/04/2024 9:17 AM [facility] IS THE PATIENT REQUIRED TO BE FASTING? No 07/04/2024 9:17 AM RADIOLOGIST CHIEF OF BREAST IMAGING [facility] GFR, ESTIMATED >60 >=60 07/04/2024 9:17 AM RADIOLOGIST CHIEF OF BREAST IMAGING [facility] Comment: Creatinine Clearance is the preferred criteria for selecting drug dose adjustments in renally impaired patients. ??The GFR is provided as additional pertinent clinical information. GFR is reported in mL/min/1.73 sq m. Calculation based on the Chronic Kidney Disease Epidemiology Collaboration (CKD- EPI) equation refit without adjustment for race. GFR, EST. >60 >=60 024 9:17 AM RADIOLOGIST CHIEF OF BREAST IMAGING [facility] GFR, EST. NONAFRICAN >60 >=60 07/04/2024 9:17 AM [facility] Blood Venipuncture / Unknown 07/04/2024 8:47 AM RADIOLOGIST CHIEF OF BREAST IMAGING 07/04/2024 8:47 AM RADIOLOGIST CHIEF OF BREAST IMAGING us Michael Ahmadi MD CHEMISTRY ORDERABLES Fin al Result [facility] [address] [place] [address] documented in this encounter Visit Diagnoses Diagnosis Chronic ITP (idiopathic thrombocytopenia) (HCC) Immune thrombocytopenic purpura documented in this encounter Additional Health Concerns Assessment Noted Time PHQ-9 Depression Total Score: 0 08/14/19 24 3:02 PM RADIOLOGIST CHIEF OF BREAST IMAGING documented as of this encounter Care Teams Concrete Mixer Truck Driver Relationship Specialty Start Date End Date Irving Jeffries MD [address] [place] [address] PCP - General Internal Medicine 07/16/21 07/04/24 Ton Ling APRN, CLINICAL BIOCHEMICAL GENETICIST [address] [place] [address] Nurse Practitioner Advanced Practice Nurse 04/24/23 Ame Scanlon APRN, CLINICAL BIOCHEMICAL GENETICIST #[address] [facility] [address] [place] [address] Nurse Practitioner Cardiology 08/23/23 Michael Ahmadi MD [address] [place] [address] Consulting Physician Medical Oncology 07/26/23 documented as of this encounter
--- OUTSIDE RECORDS SUMMARY | 2024-07-28 14:05 | XMS_ITS | Encounter Summary ---
Author Organization [employer] Care Team Providers Care Top Edge Beveler Name Role Phone Irving Jeffries MD Primary Care Provider [phone]- [phone] Ton Ling APRN, EXERCISER Unavailable [phone] Ame Scanlon APRN, EXERCISER Unavailable + [phone] Michael Ahmadi MD Unavailable [phone] Encounter Details Date Type Department Care Team (Latest Contact Info) Description 05/14/2024 Travel Social History Tobacco Use Types Packs/Day Years Used Date Smoking Tobacco: Former Cigarettes 2 20 Passive Smoke Exposure: Past Smokeless Tobacco: Never Alcohol Use Standard Drinks/Week Comments Not Currently 0 (1 standard drink = 0.6 oz pur e alcohol) [facility] Utilities Answer Date Recorded In the past 12 months has [facility], gas, oil, or water [employer] threatened to shut off services in your home? Patient declined 09/03/2023 Social Connection and Isolation Panel [NHANES] A nswer Date Recorded In a typical week, how many times do you talk on the phone with family, friends, or neighbors? Patient declined 09/03/2023 How often do you get togethe r with friends or relatives? Patient declined 09/03/2023 How often do you attend alevism or anglican serv ices? Patient declined 09/03/2023 Do you belong to any clubs o r organizations such as alevism groups, unions, fraternal or athletic groups, or [...] Total Score - Questions 1-9 0 07/31 [facility] - Occupational Stress Questionnaire Answer Date Recorded [...] place to sleep or slept in a alf (including now)? Patient declined 09/03/2023 Sexually Active Control Partners Comments Never Sex and Gender Information Value Date Recorded Sex Assigned at Not on file Legal Sex Male 11:18 PM CDT Gender Identity Not on file Sexual Orientation Not on file documented as of this encounter Plan of Treatment Not on file documented as of this encounter Visit Diagnoses Not on filedocumented in this encounter Additional Health Concerns Assessment Noted Time PHQ-9 Depression Total Score: 0 08/14/19 3:02 PM JOURNALIST documented as of this encounter Care Teams Top Edge Beveler Relationship Specialty Start Date End Date Irving Jeffries MD [address] [place] [address] PCP - General Internal Medicine 07/16/21 07/04/24 Ton Ling APRN, EXERCISER [address] [place] [address] Nurse Practitioner Advanced Practice Nurse 04/24/23 Ame Scanlon APRN, EXERCISER #[address] [facility], [address] [place] [address] Nurse Practitioner Cardiology 08/23/23 Michael Ahmadi MD [address] [place] [address] Consulting Physician Medical Oncology 07/26/23 documented as of this encounter
--- OUTSIDE RECORDS SUMMARY | 2024-07-28 14:05 | XMS_ITS | Encounter Summary ---
Author Organization [facility] Address [address] [facility] [place] [address] Phone Care Team Providers Care Contracts Representative Name Role Phone Irving Jeffries MD Primary Care Provider [phone] Ton Ling SENIOR SOFTWARE SYSTEMS ENGINEER, BOUNTY TRAPPER Unavailable Ame Scanlon SENIOR SOFTWARE SYSTEMS ENGINEER, BOUNTY TRAPPER Unavailable + [phone] Michael Ahmadi MD Unavailable [phone] Reason for Visit * Reason Comments Follow-up Encounter Details Date Type Department Care Team (Latest Contact Info) Description 07/04/2024 9:20 AM NUT THREADER Office Visit [facility] On[facility] [address] [place] [id number] Michael Ahmadi MD [address] [place] [address] Chronic ITP (idiopathic thrombocytopenia) (HCC) (Primary Dx); Chronic undifferentiated schizophrenia (HCC); Anemia, unspecified type; Iron deficiency anemia due to sideropenic dysphagia Discharge Disposition: Discharged to home or Selfcare Social History Tobacco Use Types Packs/Day Years Used Date Smoking Tobacco: Former Cigarettes 2 20 Passive Smoke Exposure: Past Smokeless Tobacco: Never Tobacco Cessation:Counseling Given: Not Answered Alcohol Use Standard Drinks/Week Comments Not Currently 0 (1 standard drink = 0.6 oz pur e alcohol) [facility] Utilities Answer Date Recorded In the past 12 months has th e electric, gas, oil, or water company [...] declined 09/03/2023 How often do you attend jew or anabaptist serv ices? Patient declined 09/03/2023 Do you belong to any clubs o r organizations such as jew groups, unions, fraternal or athletic groups, or [...] Total Score - Questions 1-9 0 07/31 [facility] - Occupational Stress Questionnaire Answer Date Recorded [...] place to sleep or slept in a intermediate (including now)? Patient declined 09/03/2023 Sexually Active Control Partners Comments Never Sex and Gender Information Value Date Recorded Sex Assigned at Not on file Legal Sex Male 11:18 PM CDT Gender Identity Not on file Sexual Orientation Not on file documented as of this encounter Last Filed Vital Signs Vital Sign Reading Time Taken Comments Blood Pressure 126/68 07/04/2024 9:21 AM NUT THREADER Pulse 80 07/04/2024 9:21 AM NUT THREADER Temperature 36.6 ??C (97.9 ??F) 07/04/2024 9:21 AM CS T Respiratory Rate 18 07/04/2024 9:21 AM NUT THREADER Oxygen Saturation 97% 07/04/2024 9:21 AM NUT THREADER Inhaled Oxygen Concentration - - Weight 90 kg (198 lb 8 oz) 07/04/2024 9:21 AM CS T Height 182.9 cm (6') 07/04/2024 9:21 AM NUT THREADER Body Mass Index 26.92 07/04/2024 9:21 AM NUT THREADER documented in this encounter Progress Notes * Mayra Duenas - 07/04/2024 9:20 AM CST Outpatient Hem/Onc Progress Note Interval history: Iván Dumont is a 78 y.o. male seen today for follow up of severe thrombocytopenia. Patient requests to be called Norberto. Norberto is here today accompanied by Yannick [facility]. Norberto completed BMBX on 09/22/23 with normo-cellular marrow with absent iron stores. Norberto's PLT level was 17K on 01/12/24. Took dex 40 mg po daily for 4 days 01/15/24. Labs on 01/31/24- PLT 17K. Repeat CBC on 02/29/24 PLT 37K. Repeat labs on 04/10/24 PLT 13K. Labs on 04/12/24 measured PLT at 45K. Patient and Yannick report he is currently taking Promacta 50 mg daily. Denies recent falls after ED evaluation on 04/12/24 after experiencing fall at facility kitchen. Yannick caregiver reports that [facility] is closing and [facility]. He denies known plans to change patient's medical staff at this time as it is local to us still. Norberto reports having a good holiday, spending the day at intermediate with other residents. He denies nausea or stomach upset. Den ies diarrhea or change in stool. He denies any current urinary retention, hematuria, or dysuria. Denies fevers, chills, cough, or other signs of infection. Denies rash or itching. He has not been on anticoagulation ever since his platelet count dropped less than 50 K. Reviewed patients past medical, surgical, social, and family history. No outpatient medications have been marked as taking for the 07/04/24 encounter (Appointment) with Michael Ahmadi MD. Allergies as of 07/04/2024 (No Known Allergies) REVIEW OF SYSTEMS Review of Systems Constitutional: Negative for malaise/fatigue and weight loss. Respiratory: Negative for shortness of breath. Cardiovascular: Negative for leg swelling. Gastrointestinal: Negative for constipation, diarrhea, heartburn and nausea. Musculoskeletal: Negative for falls. Skin: Negative for itching and rash. Neurological: Negative for dizziness and weakness. Physical Exam Physical Exam Constitutional: Appearance: Normal appearance. HENT: Head: Normocephalic and atraumatic. Eyes: Conjunctiva/sclera: Conjunctivae normal. Pulmonary: Effort: Pulmonary effort is normal. Abdominal: General: Abdomen is flat. Palpations: Abdomen is soft. Musculoskeletal: General: Normal range of motion. Cervical back: Normal range of motion and neck supple. Right lower leg: No edema. Left lower leg: No edema. Skin: General: Skin is warm and dry. Coloration: Skin is not jaundiced. Neurological: Mental Status: He is alert and oriented to person, place, and time. Gait: Gait is intact. Psychiatric: Mood and Affect: Affect normal. PAIN ASSESSMENT: no verbal complaints DATA: Lab Results Component Value Date WBC 8.24 04/12/2024 RBC 4.46 04/12/2024 HEMOGLOBIN 13.8 04/12/2024 MCV 95.7 04/12/2024 MCH 30.9 04/12/2024 MCHC 32.3 04/12/2024 PLATELETCNT 45 (L) 04/12/2024 RDW 14.5 04/12/2024 LYMPHOCYTES 21.8 04/03/2024 RELEOS 0.0 04/03/2024 RELBAS 0.5 04/03/2024 ANC 5.22 04/03/2024 MONOCYTES 1.19 (H) 04/03/2024 EOSINOPHILS 0.00 04/03/2024 BASOPHILS 0.04 04/03/2024 Lab Results Component Value Date SODIUM 138 05/14/2024 POTASSIUM 4.4 05/14/2024 CHLORIDE 106 05/14/2024 ANIONGAP 12.4 05/14/2024 GLUCOSE 78 05/14/2024 BUN 15 05/14/2024 CREATININE 0.87 05/14/2024 TOTALPROTEIN 6.8 05/14/2024 ALBUMIN 4.3 05/14/2024 CALCIUM 9.2 05/14/2024 SGPTALT 21 05/14/2024 ALKALINEPHO 96 05/14/2024 Lab Results Component Value Date IRON 73 02/29/2024 TIBC 273 02/29/2024 IRONSATURATI 27 02/29/2024 FERRITIN 365 (H) 02/29/2024 11/08/23 LABS [facility]: CBC WBC 7.3 HGB 11.7 PLT 43 CMP K+ 4.2 Creatine 0.8 Ca+ 9.1 Alk Phos 88 AST 16 ALT 11 T.bili 0.3 IRON 63 TIBC 455 Sat 14% Ferritin 13 07/26/23 CBC OSH: WBC 13.8 HGB 11.9 PLT 57 07/12/23 CBC OSH: WBC 7.6 HGB 13.2 PLT 9K !! 06/07/23 CBC OSH: WBC 6.8 HGB 12.4 PLT 39K 05/28/23 CBC OSH: WBC 8.2 HGB 12.9 PLT 18K 05/10/23 CBC OSH: WBC 6.6 HGB 12.3 PLT 18K 04/26/23 CBC OSH: WBC 8.0 HGB 12.7 PLT 33K Lab Results Component Value Date PSASCREEN 9.18 (H) 03/15/2023 PSA 8.19 03/01/2023 PSATOTAL 9.75 (H) 04/24/2023 Lab Results Component Value Date IRON 73 02/29/2024 TIBC 273 02/29/2024 IRONSATURATI 27 02/29/2024 FERRITIN 365 (H) 02/29/2024 [id number] 486 03/15/2023 PLT TREND: PLATELET COUNT Latest Ref Rng 140 - 440 10(3)/mcL 01/05/2023 9:23 PM 102 (L) 03/15/2023 11:31 AM 79 (L) 04/24/2023 10:44 AM 50 (L) 07/28/2023 8:50 AM 34 (L) 07/29/2023 5:14 AM 42 (L) 07/30/2023 4:10 AM 51 (L) 07/31/2023 4:33 AM 59 (L) 08/01/2023 4:56 AM 80 (L) 08/02/2023 4:57 AM 135 (L) 08/03/2023 5:12 AM 164 08/04/2023 5:05 AM 171 08/05/2023 5:03 AM 126 (L) 08/06/2023 4:59 AM 167 08/07/2023 6:34 AM 162 08/09/2023 1:49 PM 196 08/18/2023 11:36 PM 43 (L) 09/03/2023 12:01 AM 94 (L) 09/03/2023 5:33 AM 66 (L) 09/04/2023 5:05 AM 55 (L) 09/05/2023 4:52 AM 65 (L) 09/22/2023 6:40 AM 60 (L) 01/12/2024 11:38 AM 17 (LL) 01/17/2024 10:18 AM 34 (L) 02/29/2024 9:11 AM 37 (L) 04/03/24 78 (L) 04/10/24 13 (LL) 04/12/24 45 (L) 07/04/24 154 Legend: (L) Low (LL) Low Panic DIAGNOSTIC IMAGING STUDIES: 07/29/23 CT ANGIO CHEST: IMPRESSION: 1. No PE. 2. Lung findings unchanged. 07/29/23 CT CHEST WO CONTRAST: IMPRESSION: 1. Examination is degraded by respiratory motion. There are small bilateral pleural effusions and bilateral pulmonary opacities, consistent with pneumonia. 2. Mildly enlarged precarinal lymph node which may be reactive. 3. Coronary artery disease 4. Small hiatal hernia 03/21/23 US ABDOMEN: IMPRESSION: No evidence of an acute abnormality. Spleen size is normal. Cholelithiasis with no secondary features of acute cholecystitis. Bilateral renal cysts. Hepatic steatosis Assessment: 1. Thrombocytopenia , ITP. Did not respond/maintain response with steroids. 2. Anemia, normocytic, mild. Resolved after being treated for iron deficiency 3. Chronic undifferentiated schizophrenia 4. Elevated PSA, MRI pelvis negative for malignant changes likely related to BPH Plan: 2. Continue Promacta 50 mg from specialty pharmacy. Will obtain labs today to assess current PLT levels. 3. Patient completed repeat CBC and CMP today to ensure patient doesn't need oral steroids for critical PLT levels. Levels improved with current treatment with plans to continue. Will continue to complete same day labs as follow up. 4. HOLD ALL ANTICOAGULANTS to prevent recurrent bleeding including hematuria secondary to low platelet levels. If cardiology would like to restart anticoagulation therapy they are able to resume as long as PLT remain over 50K. 5. Discussed bleeding precautions with Norberto and caregiver given his recent critical platelet level. Encouraged patient to avoid situations that increase his risk for falling. Present to nearest emergency room is episode of bleeding without ability to curb at home. 6. Follow with [facility] for management of urinary retention with barakat catheter in place. 7. Continue to follow with PCP and other specialists for management of chronic medical conditions. Encouraged Norberto to remain active with walking around neighborhood and PT exercises as directed after recent hospital admission. 8. Obtain Iron panel and Ferritin level at next lab draw. Follow up in 2 months with labs same day Labs: CBC, CMP, Iron panel, ferritin The patient was given an opportunity to ask questions, and all questions answered to patient's satisfaction. Patient verbalizes understanding of the plan as outlined above. Documentation was brought forward from my note on 05/14/24.Everything pasted or copy/forwarded was performed again at this visit and changes were made as appropriate.The documentation for this visit was completed by Mayra Duenas acting as a scribe for Michael Ahmadi MD. 07/04/2024, 8:26 AM NUT THREADER THREADER * Michael Ahmadi MD - 07/04/2024 9:20 AM CST Outpatient Hem/Onc Progress Note Interval history: Iván Dumont is a 78 y.o. male seen today for follow up of severe thrombocytopenia. Patient requests to be called Norberto. Norberto is here today accompanied by Yannick [facility]. Norberto completed BMBX on 09/22/23 with normo-cellular marrow with absent iron stores. Norberto's PLT level was 17K on 01/12/24. Took dex 40 mg po daily for 4 days 01/15/24. Labs on 01/31/24- PLT 17K. Repeat CBC on 02/29/24 PLT 37K. Repeat labs on 04/10/24 PLT 13K. Labs on 04/12/24 measured PLT at 45K. Patient and Yannick report he is currently taking Promacta 50 mg daily. Denies recent falls after ED evaluation on 04/12/24 after experiencing fall at facility kitchen. Yannick caregiver reports that [facility] is closing and patient will be relocated to facility in [facility]. He denies known plans to change patient's medical staff at this time as it is local to us still. Norberto reports having a good holiday, spending the day at intermediate with other residents. He denies nausea or stomach upset. Den ies diarrhea or change in stool. He denies any current urinary retention, hematuria, or dysuria. Denies fevers, chills, cough, or other signs of infection. Denies rash or itching. He has not been on anticoagulation ever since his platelet count dropped less than 50 K. Reviewed patients past medical, surgical, social, and family history. Outpatient Medications Marked as Taking for the 07/04/24 encounter (Office Visit) with Michael Ahmadi MD Medication Sig Dispense Refill amLODIPine (NORVASC) 10 MG Tablet Take 1 Tablet by mouth daily. 30 Tablet 11 cloZAPine (CLOZARIL) 25 MG Tablet Take 50 mg by mouth nightly. Clozapine 50 MG Tablet eltrombopag (Promacta) 50 MG Tablet Take 1 Tablet by mouth every morning (before breakfast). 30 Tablet 5 finasteride (PROSCAR) 5 MG Tablet metoprolol tartrate (LOPRESSOR) 25 MG Tablet Take 25 mg by mouth 2 times daily. omeprazole (PriLOSEC) 20 MG CAPSULE DELAYED RELEASE Take 1 Capsule by mouth in the morning and at bedtime. 60 Capsule 3 Psyllium (REGULOID PO) Take by mouth. sertraline (ZOLOFT) 50 MG Tablet Take 1 Tablet by mouth daily. tamsulosin (FLOMAX) 0.4 MG Capsule Allergies as of 07/04/2024 (No Known Allergies) REVIEW OF SYSTEMS Review of Systems Constitutional: Negative for malaise/fatigue and weight loss. Respiratory: Negative for shortness of breath. Cardiovascular: Negative for leg swelling. Gastrointestinal: Negative for constipation, diarrhea, heartburn and nausea. Musculoskeletal: Negative for falls. Skin: Negative for itching and rash. Neurological: Negative for dizziness and weakness. Physical Exam Physical Exam Constitutional: Appearance: Normal appearance. HENT: Head: Normocephalic and atraumatic. Eyes: Conjunctiva/sclera: Conjunctivae normal. Pulmonary: Effort: Pulmonary effort is normal. Abdominal: General: Abdomen is flat. Palpations: Abdomen is soft. Musculoskeletal: General: Normal range of motion. Cervical back: Normal range of motion and neck supple. Right lower leg: No edema. Left lower leg: No edema. Skin: General: Skin is warm and dry. Coloration: Skin is not jaundiced. Neurological: Mental Status: He is alert and oriented to person, place, and time. Gait: Gait is intact. Psychiatric: Mood and Affect: Affect normal. PAIN ASSESSMENT: no verbal complaints DATA: Lab Results Component Value Date WBC 11.25 07/04/2024 RBC 4.02 (L) 07/04/2024 HEMOGLOBIN 12.3 (L) 07/04/2024 MCV 94.3 07/04/2024 MCH 30.6 07/04/2024 MCHC 32.5 07/04/2024 PLATELETCNT 154 07/04/2024 RDW 13.9 07/04/2024 LYMPHOCYTES 10.8 (L) 07/04/2024 RELEOS 0.1 07/04/2024 RELBAS 0.4 07/04/2024 ANC 7.95 (H) 07/04/2024 MONOCYTES 2.03 (H) 07/04/2024 EOSINOPHILS 0.01 07/04/2024 BASOPHILS 0.05 07/04/2024 Lab Results Component Value Date SODIUM 136 07/04/2024 POTASSIUM 4.3 07/04/2024 CHLORIDE 106 07/04/2024 ANIONGAP 14.3 07/04/2024 GLUCOSE 108 (H) 07/04/2024 BUN 16 07/04/2024 CREATININE 0.78 07/04/2024 TOTALPROTEIN 6.6 07/04/2024 ALBUMIN 3.9 07/04/2024 CALCIUM 8.9 07/04/2024 SGPTALT 29 07/04/2024 ALKALINEPHO 136 07/04/2024 Lab Results Component Value Date IRON 73 02/29/2024 TIBC 273 02/29/2024 IRONSATURATI 27 02/29/2024 FERRITIN 365 (H) 02/29/2024 11/08/23 LABS [facility]: CBC WBC 7.3 HGB 11.7 PLT 43 CMP K+ 4.2 Creatine 0.8 Ca+ 9.1 Alk Phos 88 AST 16 ALT 11 T.bili 0.3 IRON 63 TIBC 455 Sat 14% Ferritin 13 07/26/23 CBC OSH: WBC 13.8 HGB 11.9 PLT 57 07/12/23 CBC OSH: WBC 7.6 HGB 13.2 PLT 9K !! 06/07/23 CBC OSH: WBC 6.8 HGB 12.4 PLT 39K 05/28/23 CBC OSH: WBC 8.2 HGB 12.9 PLT 18K 05/10/23 CBC OSH: WBC 6.6 HGB 12.3 PLT 18K 04/26/23 CBC OSH: WBC 8.0 HGB 12.7 PLT 33K Lab Results Component Value Date PSASCREEN 9.18 (H) 03/15/2023 PSA 8.19 03/01/2023 PSATOTAL 9.75 (H) 04/24/2023 Lab Results Component Value Date IRON 73 02/29/2024 TIBC 273 02/29/2024 IRONSATURATI 27 02/29/2024 FERRITIN 365 (H) 02/29/2024 [id number] 486 03/15/2023 PLT TREND: PLATELET COUNT Latest Ref Rng 140 - 440 10(3)/mcL 01/05/2023 9:23 PM 102 (L) 03/15/2023 11:31 AM 79 (L) 04/24/2023 10:44 AM 50 (L) 07/28/2023 8:50 AM 34 (L) 07/29/2023 5:14 AM 42 (L) 07/30/2023 4:10 AM 51 (L) 07/31/2023 4:33 AM 59 (L) 08/01/2023 4:56 AM 80 (L) 08/02/2023 4:57 AM 135 (L) 08/03/2023 5:12 AM 164 08/04/2023 5:05 AM 171 08/05/2023 5:03 AM 126 (L) 08/06/2023 4:59 AM 167 08/07/2023 6:34 AM 162 08/09/2023 1:49 PM 196 08/18/2023 11:36 PM 43 (L) 09/03/2023 12:01 AM 94 (L) 09/03/2023 5:33 AM 66 (L) 09/04/2023 5:05 AM 55 (L) 09/05/2023 4:52 AM 65 (L) 09/22/2023 6:40 AM 60 (L) 01/12/2024 11:38 AM 17 (LL) 01/17/2024 10:18 AM 34 (L) 02/29/2024 9:11 AM 37 (L) 04/03/24 78 (L) 04/10/24 13 (LL) 04/12/24 45 (L) 07/04/24 154 Legend: (L) Low (LL) Low Panic DIAGNOSTIC IMAGING STUDIES: 07/29/23 CT ANGIO CHEST: IMPRESSION: 1. No PE. 2. Lung findings unchanged. 07/29/23 CT CHEST WO CONTRAST: IMPRESSION: 1. Examination is degraded by respiratory motion. There are small bilateral pleural effusions and bilateral pulmonary opacities, consistent with pneumonia. 2. Mildly enlarged precarinal lymph node which may be reactive. 3. Coronary artery disease 4. Small hiatal hernia 03/21/23 US ABDOMEN: IMPRESSION: No evidence of an acute abnormality. Spleen size is normal. Cholelithiasis with no secondary features of acute cholecystitis. Bilateral renal cysts. Hepatic steatosis Assessment: 1. Thrombocytopenia , ITP. Did not respond/maintain response with steroids. 2. Anemia, normocytic, mild. Resolved after being treated for iron deficiency 3. Chronic undifferentiated schizophrenia 4. Elevated PSA, MRI pelvis negative for malignant changes likely related to BPH Plan: 1. Reviewed patient's recent clinical symptoms and lab results. His platelet count is in normal range around 150 K now. He is tolerating current treatment for ITP well. Reassurance given. 2. Continue Promacta 50 mg from specialty pharmacy. Check CBC again in 2 months 3. Now that his platelet count is over 100 K, it would be safe for him to resume anticoagulation ifneeded for cardiac reasons. He will follow up with rag shredder to determine that. 5. Discussed bleeding precautions with Norberto and caregiver given his recent critical platelet level. Encouraged patient to avoid situations that increase his risk for falling. Present to nearest emergency room is episode of bleeding without ability to curb at home. 6. Follow with [facility] for management of urinary retention with barakat catheter in place. 7. Continue to follow with PCP and other specialists for management of chronic medical conditions. Encouraged Norberto to remain active with walking around neighborhood and PT exercises as directed after recent hospital admission. 8. Obtain Iron panel and Ferritin level at next lab draw. Follow up in 2 months with labs same day Labs: CBC, CMP, Iron panel, ferritin The patient was given an opportunity to ask questions, and all questions answered to patient's satisfaction. Patient verbalizes understanding of the plan as outlined above. Documentation was brought forward from my note on 05/14/24.Everything pasted or copy/forwarded was performed again at this visit and changes were made as appropriate.The documentation for this visit was completed by Mayra Duenas acting as a scribe for Michael Ahmadi MD. 07/04/2024, 9:45 AM NUT THREADER The documentation recorded by the scribe was completed while in the exam room with me and the patient. The documentation accurately reflects the service I personally performed and the decisions made by me. I have confirmed and edited the documentation as necessary. Michael Ahmadi MD 07/04/2024, 9:46 AM NUT THREADER THREADER documented in this encounter Miscellaneous Notes * Interdisciplinary - Colleen Cherry - 07/04/2024 9:20 AM CST Patient reports no physical complaints during today's visit. Pain score is 0. THREADER * Tena - Colleen Cherry - 07/04/2024 9:20 AM CST AVS printed. Patient will follow up in 2 months with labs in office the same day. 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, chronic condition Anemia, unspecified type Iron deficiency anemia due to sideropenic dysphagia documented in this encounter Additional Health Concerns Assessment Noted Time PHQ-9 Depression Total Score: 0 08/14/19 3:02 PM NUT THREADER documented as of this encounter Care Teams Contracts Representative Relationship Specialty Start Date End Date Irving Jeffries MD [address] [place] [address] PCP - General Internal Medicine 07/16/21 07/04/24 Ton Ling, SENIOR SOFTWARE SYSTEMS ENGINEER, BOUNTY TRAPPER [address] [place] [address] Nurse Practitioner Advanced Practice Nurse 04/24/23 Aem Scanlon APRN, BOUNTY TRAPPER #2 [facility] [address] [place] [address] Nurse Practitioner Cardiology 08/23/23 Michael Ahmadi MD [address] [place] [address] Consulting Physician Medical Oncology 07/26/23 documented as of this encounter
--- OUTSIDE RECORDS SUMMARY | 2024-07-28 14:05 | XMS_ITS | Encounter Summary ---
Author Organization [employer] Care Team Providers Care Automation Driver Name Role Phone Irving Jeffries MD Primary Care Provider [phone] Ton Ling APRN, QUILLER OPERATOR Unavailable [phone] Ame Scanlon APRN, QUILLER OPERATOR Unavailable [phone] Michael Ahmadi MD Unavailable [phone] Encounter Details Date Type Department Care Team (Latest Contact Info) Description 04/12/2024 Travel Social History Tobacco Use Types Packs/Day Years Used Date Smoking Tobacco: Former Cigarettes 2 20 Passive Smoke Exposure: Past Smokeless Tobacco: Never Alcohol Use Standard Drinks/Week Comments Not Currently 0 (1 standard drink = 0.6 oz pur e alcohol) [facility] Utilities Answer Date Recorded In the past 12 months has [place], gas, oil, or water [employer] threatened to shut off services in your home? Patient declined 09/03/2023 Social Connection and Isolation Panel [NHANES] A nswer Date Recorded In a typical week, how many times do you talk on the phone with family, friends, or neighbors? Patient declined 09/03/2023 How often do you get togethe r with friends or relatives? Patient declined 09/03/2023 How often do you attend mu-ism or zoroastrianism serv ices? Patient declined 09/03/2023 Do you belong to any clubs o r organizations such as mu-ism groups, unions, fraternal or athletic groups, or [...] Total Score - Questions 1-9 0 07/31 [facility] - Occupational Stress Questionnaire Answer Date [...] place to sleep or slept in a detention (including now)? Patient declined 09/03/2023 Sexually Active [...] Depression Total Score: 0 08/14/19 3:02 PM VICE PRESIDENT INTEGRATED documented as of this encounter Care Teams Automation Driver Relationship Specialty Start Date End Date Irving Jeffries MD [address] [place] [address] PCP - General Internal Medicine 07/16/21 07/04/24 Ton Ling APRN, QUILLER OPERATOR [address] [place] [address] Nurse Practitioner Advanced Practice Nurse 04/24/23 Ame Scanlon APRN, QUILLER OPERATOR #2 [facility], [address] [place] [address] Nurse Practitioner Cardiology 08/23/23 Michael Ahmadi MD [address] [place] [address] Consulting Physician Medical Oncology 07/26/23 documented as of this encounter
--- OUTSIDE RECORDS SUMMARY | 2024-07-28 14:05 | XMS_ITS | Clinical Summary ---
Author Organization [facility] Address [address] [place] [address] Phone Care Team Providers Care Paper Pattern Folder Name Role Phone Ton Ling AUTO MECHANIC APPRENTICE, KEY MAKER Unavailable [phone] Ame Scanlon APRN, KEY MAKER Unavailable + [phone] Michael Ahmadi MD Unavailable [phone] Allergies No known active allergies Medications acetaminophen (TYLENOL) 325 MG Tablet Take 2 Tablets by mouth every 6 hours as needed for Mild or more severe pain. Active sertraline (ZOLOFT) 50 MG Tablet Take 1 Tablet by mouth daily. Active cloZAPine (CLOZARIL) 25 MG Tablet Take 50 mg by mouth nightly. Active finasteride (PROSCAR) 5 MG Tablet 09/11/19 24 Active tamsulosin (FLOMAX) 0.4 MG Capsule 09/11/19 24 Active Clozapine 50 MG Tablet 09/07/19 24 Active metoprolol tartrate (LOPRESSOR) 25 MG Tablet Take 25 mg by mouth 2 times daily. Active Psyllium (REGULOID PO) Take by mouth. Active cloZAPine (CLOZARIL) 100 MG Tablet Take 50 mg by mouth daily. 024 Discontinued(Du plicate Order) omeprazole (PriLOSEC) 20 MG CAPSULE DELAYED RELEASE Take 1 Capsule by mouth in the morning and at bedtime. 60 Capsule 3 04/09/ 024 Discontinued eltrombopag (Promacta) 50 MG Tablet Take 1 Tablet by mouth every morning (before breakfast). 30 Tablet 5 02/29/20 24 024 Discontinued amLODIPine (NORVASC) 10 MG Tablet Take 1 Tablet by mouth daily. 30 Tablet 11 03/13/20 24 024 Discontinued Active Problems Problem Noted Date Diagnosed Date Chronic ITP (idiopathic thrombocytopenia) 2023 Iron deficiency 09/25/2023 History of urinary retention 09/03/2023 Catheter-associated urinary tract infection 10/2023 Paroxysmal atrial fibrillation 08/14/2023 Elevated PSA 08/14/2023 Thrombocytopenia 02/02/2023 GERD without esophagitis 07/17/2020 Mixed hyperlipidemia 07/17/2020 Essential hypertension, benign 07/17/2020 Chronic undifferentiated schizophrenia 0 Anemia Resolved Problems Problem Noted Date Diagnosed Date Resolved Date Sepsis 09/03/2023 09/28/2023 Gross hematuria 09/03/2023 09/28/2023 Acute respiratory failure with hypoxia 07/28/2023 08/07/2023 RSV infection 07/28/2023 08/07/2023 Need for hepatitis C screening test 09/28/2023 Encounters Date Type Department Care Team Description 07/04/2024 9:20 AM QUALITY IMPROVEMENT COORDINATOR Office Visit [facility] [address] [place] [address] Michael Ahmadi MD Chronic ITP (idiopathic thrombocytopenia) (HCC) (Primary Dx); Chronic undifferentiated schizophrenia (HCC); Anemia, unspecified type; Iron deficiency anemia due to sideropenic dysphagia Discharge Disposition: Discharged to home or Selfcare 07/04/2024 9:00 AM QUALITY IMPROVEMENT COORDINATOR Lab [facility] [address] [place] [address] Michael Ahmadi MD Chronic ITP (idiopathic thrombocytopenia) (HCC) Discharge Disposition: Discharged to home or Selfcare 07/04/2024 Travel 05/21/2024 Telephone [facility] - Internal [facility] [address] [place] [address] Irving Jeffries MD 05/14/2024 10:00 AM CDT Office Visit [facility] [address] [place] [phone] Michael Ahmadi MD Chronic ITP (idiopathic thrombocytopenia) (HCC) (Primary Dx); Thrombocytopenia (HCC) Discharge Disposition: Discharged to home or Selfcare 05/14/2024 9:40 AM CDT [facility] [address] [place] [phone] Michael Ahmadi MD Discharge Disposition: Discharged to home or Selfcare 05/14/2024 Travel from Last 3 Months Immunizations Immunization Administration Dates Next Due Covid-19, Mrna, Lnp-s, PF, 5 0 mcg/0.25 mL dose (Moderna) 07/01/2021 Influenza Vaccine greater than 3 yrs 05/26/2017 Influenza, High-dose, Quadrivalent 05/03/2021 Influenza, Quadrivalent, Adjuvanted 05/10/2023,1 ,05/05/2020 Influenza, Trivalent, Adjuvanted, PF 05/06/2019 Influenza, high-dose, trivalent, PF 05/21/2018,1 ,05/14/2015 Pneumococcal Vaccine - 13 Valent 05/14/2015 Rotavirus Pentavalent Vaccine (RV5) 05/15/2015 Zoster Vaccine, live 05/24/2016 Family History Relation Name Status Comments Father Mother Sister Alive Social History Tobacco Use Types Packs/Day Years Used Date Smoking Tobacco: Former Cigarettes 2 20 Passive Smoke Exposure: Past Smokeless Tobacco: Never Tobacco Cessation:Counseling Given: Not Answered Alcohol Use Standard Drinks/Week Comments Not Currently 0 (1 standard drink = 0.6 oz pur e alcohol) [facility] Utilities Answer Date Recorded In the past 12 months has e [employer] gas, oil, or water [employer] threatened to shut off services in your home? Patient declined 09/03/2023 Social Connection and Isolation Panel [NHANES] A nswer Date Recorded In a typical week, how many times do you talk on the phone with family, friends, or neighbors? Patient declined 09/03/2023 How often do you get togethe r with friends or relatives? Patient declined 09/03/2023 How often do you attend religion or cheondoism serv ices? Patient declined 09/03/2023 Do you belong to any clubs o r organizations such as religion groups, unions, fraternal or athletic groups, or [...] Total Score - Questions 1-9 0 07/31 [facility] - Occupational [...] place to sleep or slept in a fpc (including now)? Patient declined 09/03/2023 Sexually Active Control Partners Comments Never Sex and Gender Information Value Date Recorded Sex Assigned at Not on file Legal Sex Male 11:18 PM CDT Gender Identity Not on file Sexual Orientation Not on file Last Filed Vital Signs Vital Sign Reading Time Taken Comments Blood Pressure 126/68 07/04/2024 9:21 AM QUALITY IMPROVEMENT COORDINATOR Pulse 80 07/04/2024 9:21 AM QUALITY IMPROVEMENT COORDINATOR Temperature 36.6 ??C (97.9 ??F) 07/04/2024 9:21 AM CS T Respiratory Rate 18 07/04/2024 9:21 AM QUALITY IMPROVEMENT COORDINATOR Oxygen Saturation 97% 07/04/2024 9:21 AM QUALITY IMPROVEMENT COORDINATOR Inhaled Oxygen Concentration - - Weight 90 kg (198 lb 8 oz) 07/04/2024 9:21 AM CS T Height 182.9 cm (6') 07/04/2024 9:21 AM QUALITY IMPROVEMENT COORDINATOR Body Mass Index 26.92 07/04/2024 9:21 AM QUALITY IMPROVEMENT COORDINATOR Plan of Treatment Not on file Procedures Procedure Name Priority Date/Time Associated Diagnosis Comments CBC WITH AUTO DIFFERENTIAL Routine 07/04/2024 8:47 AM QUALITY IMPROVEMENT COORDINATOR Chronic ITP (idiopathic thrombocytopenia) (HCC) COMPLETE BLOOD COUNT (CBC) WITH DIFF Routine 07/04/2024 8:47 AM QUALITY IMPROVEMENT COORDINATOR Chronic ITP (idiopathic thrombocytopenia) (HCC) CMP (COMPREHENSIVE METABOLIC PANEL) Routine 07/04/2024 8:47 AM QUALITY IMPROVEMENT COORDINATOR Chronic ITP (idiopathic thrombocytopenia) (HCC) CMP (COMPREHENSIVE METABOLIC PANEL) STAT 05/14/2024 10:01 AM CDT from Last 3 Months Results * (ABNORMAL) CBC WITH AUTO DIFFERENTIAL (07/04/2024 8:47 AM QUALITY IMPROVEMENT COORDINATOR) [facility] WBC 11.25 4.00 - 12.00 10(3)/mcL 07/04/2024 9:19 AM [facility] RBC 4.02(L) 4.40 - 5.80 10(6)/mcL 07/04/2024 9:19 AM [facility] HEMOGLOBIN (HGB) 12.3(L) 13.0 - 16.5 g/dL 07/04/2024 9:19 AM [facility] HEMATOCRIT (HCT) 37.9(L) 38.0 - 50.0 % 07/04/2024 9:19 AM [facility] MCV 94.3 82.0 - 96.0 fL 07/04/2024 9:19 AM [facility] MCH 30.6 26.0 - 32.0 pg 07/04/2024 9:19 AM [facility] MCHC 32.5 31.0 - 36.0 g/dL 07/04/2024 9:19 AM [facility] PLATELET COUNT 154 140 - 440 10(3)/mcL 07/04/2024 9:19 AM [facility] RDW 13.9 11.8 - 15.5 % 07/04/2024 9:19 AM [facility] MPV 07/04/2024 9:19 AM [facility] NEUTROPHILS 70.7(H) 40.0 - 68.0 % 07/04/2024 9:19 AM [facility] LYMPHOCYTES 10.8(L) 19.0 - 49.0 % 07/04/2024 9:19 AM [facility] MONOCYTES 18.0(H) 3.0 - 13.0 % 07/04/2024 9:19 AM [facility] EOSINOPHILS 0.1 0.0 - 8.0 % 07/04/2024 9:19 AM [facility] BASOPHILS 0.4 0.0 - 1.0 % 07/04/2024 9:19 AM [facility] ABSOLUTE NEUTROPHILS 7.95(H) 1.40 - 5.30 10(3)/[facility] 07/04/2024 9:19 AM [facility] ABSOLUTE LYMPHOCYTES 1.21 0.90 - 3.30 10(3)/[facility] 07/04/2024 9:19 AM [facility] ABSOLUTE MONOCYTES 2.03(H) 0.10 - 0.90 10(3)/[facility] 07/04/2024 9:19 AM [facility] ABSOLUTE EOSINOPHIL 0.01 0.00 - 0.50 10(3)/[facility] 07/04/2024 9:19 AM [facility] ABSOLUTE BASOPHILS 0.05 0.00 - 0.10 10(3)/[facility] 07/04/2024 9:19 AM [facility] NRBC PER 100 WBC 0 07/04/20 9:19 AM [facility] RESULTS ARE CONSISTENT WITH PERIPHERAL SMEAR REVIEW Yes 07/04/2024 9:19 AM [facility] RBC MORPHOLOGY CONSISTENT WITH INDICES Yes 07/04/2024 9:19 AM [facility] LARGE PLATELETS 1+ 9:19 AM [facility] Blood Venipuncture / Unknown 07/04/2024 8:47 AM QUALITY IMPROVEMENT COORDINATOR 07/04/2024 8:47 AM QUALITY IMPROVEMENT COORDINATOR us Michael Ahmadi MD HEMATOLOGY ORDERABLES Fi nal Result [facility] [address] [place] [address] * (ABNORMAL) CMP (COMPREHENSIVE METABOLIC PANEL) (07/04/2024 8:47 AM QUALITY IMPROVEMENT COORDINATOR) Only the most recent of2 resultswithin the time period is included. SODIUM 136 136 - 145 mmol/L 07/04/2024 9:17 AM [facility] POTASSIUM 4.3 3.5 - 5.1 mmol/L 07/04/2024 9:17 AM [facility] CHLORIDE 106 98 - 107 mmol/L 07/04/2024 9:17 AM [facility] CO2, VENOUS 20(L) 22 - 30 mmol/L 07/04/2024 9:17 AM [facility] ANION GAP 14.3 <18.0 mmol/L 07/04/2024 9:17 AM [facility] GLUCOSE 108(H) 70 - 99 mg/dL 07/04/2024 9:17 AM [facility] BUN 16 8 - 26 mg/dL 07/04/2024 9:17 AM [facility] CREATININE, BLOOD 0.78 0.70 - 1.30 mg/dL 07/04/2024 9:17 AM [facility] BUN/CREATININE RATIO 21(H) 12 - 20 ratio 07/04/2024 9:17 AM [facility] TOTAL PROTEIN 6.6 6.3 - 8.2 g/dL 07/04/2024 9:17 AM [facility] ALBUMIN 3.9 3.5 - 5.0 g/dL 07/04/2024 9:17 AM [facility] A/G RATIO 1.4 1.0 - 2.2 07/04/2024 9:17 AM [facility] CALCIUM 8.9 8.7 - 10.5 mg/dL 07/04/2024 9:17 AM [facility] T BILI 0.4 0.2 - 1.2 mg/dL 07/04/2024 9:17 AM [facility] SGOT (AST) 30 5 - 34 U/L 07/04/2024 9:17 AM [facility] SGPT (ALT) 29 0 - 55 U/L 07/04/2024 9:17 AM QUALITY IMPROVEMENT COORDINATOR [facility] ALKALINE PHOSPHATASE 136 40 - 150 U/L 07/04/2024 9:17 AM [facility] IS THE PATIENT REQUIRED TO BE FASTING? No 07/04/2024 9:17 AM QUALITY IMPROVEMENT COORDINATOR [facility] GFR, ESTIMATED >60 >=60 07/04/2024 9:17 AM [facility] Comment: Creatinine Clearance is the preferred criteria for selecting drug dose adjustments in renally impaired patients. ??The GFR is provided as additional pertinent clinical information. GFR is reported in mL/min/1.73 sq m. Calculation based on the Chronic Kidney Disease Epidemiology Collaboration (CKD- EPI) equation refit without adjustment for race. GFR, EST. >60 >=60 024 9:17 AM QUALITY IMPROVEMENT COORDINATOR [facility] GFR, EST. NONAFRICAN >60 >=60 07/04/2024 9:17 AM [facility] Blood Venipuncture / Unknown 07/04/2024 8:47 AM QUALITY IMPROVEMENT COORDINATOR 07/04/2024 8:47 AM QUALITY IMPROVEMENT COORDINATOR Michael Ahmadi MD CHEMISTRY ORDERABLES Fin al Result [facility] [address] [place] [address] from Last 3 Months Insurance MEDICARE [place] Advance Directives Documents on File Type Date Recorded Patient Veterinary Physiologist Expl anation Other Advance Directive 07/31/2023 5:55 AM CLOSE FRIEND SUNNI JAFFE, 07/30/2023 * Full Code (Latest Code Status on File) Date Activated Date Inactivated Comments 09/18/2023 9:13 AM 09/22/2023 6:12 AM * Full Code Date Activated Date Inactivated Comments 09/03/2023 3:39 AM 09/05/2023 5:12 PM CPR-Full Treat ment: FULL ARREST: Attempt Resuscitation/CPR wit intubation and mechanical ventilation. PRE-ARREST: Use entire range of life support measures to stabilize the patient. * Full Code Date Activated Date Inactivated Comments 08/18/2023 11:52 AM 08/18/2023 10:22 PM * Full Code Date Activated Date Inactivated Comments 07/28/2023 1:18 PM 08/07/2023 2:42 PM CPR-Full Geronimo atment: FULL ARREST: Attempt Resuscitation/CPR wit intubation and mechanical ventilation. PRE-ARREST: Use entire range of life support measures to stabilize the patient. Care Teams Paper Pattern Folder Relationship Specialty Start Date End Date Ton Ling APRN, KEY MAKER [address] [place] [address] Nurse Practitioner Advanced Practice Nurse 04/24/23 Ame Scanlon APRN, KEY MAKER [address] [facility], [address] [place] [address] Nurse Practitioner Cardiology 08/23/23 Michael Ahmadi MD [address] [place] [address] Consulting Physician Medical Oncology 07/26/23
--- OUTSIDE RECORDS SUMMARY | 2024-07-28 14:05 | XMS_ITS | Encounter Summary ---
Author Organization [facility] Address [address] [facility] [place] [place] [address] Phone Care Team Providers Care Terrazzo Roller Name Role Phone Irving Jeffries MD Primary Care Provider [phone] Ton Ling ORE WASHER, CLASSIFICATIONS OFFICER CC/CM Unavailable Ame Scanlon ORE WASHER, CLASSIFICATIONS OFFICER CC/CM Unavailable [phone] Michael Ahmadi MD Unavailable [phone] Reason for Visit * Reason Comments Follow-up Encounter Details Date Type Department Care Team (Late st Contact Info) Description 05/14/2024 10:00 AM CDT Office Visit [facility] [address] [place] [phone] Michael Ahmadi MD [address] [place] [address] Chronic ITP (idiopathic thrombocytopenia) (HCC) (Primary Dx); Thrombocytopenia (HCC) Discharge Disposition: Discharged to home or Selfcare Social History Tobacco Use Types Packs/Day Years Used Date Smoking Tobacco: Former Cigarettes 2 20 Passive Smoke Exposure: Past Smokeless Tobacco: Never Tobacco Cessation:Counseling Given: Not Answered Alcohol Use Standard Drinks/Week Comments Not Currently 0 (1 standard drink = 0.6 oz pur e alcohol) [facility] Utilities Answer Date Recorded In the past 12 months has th e electric, gas, oil, or water [employer] threatened to shut off services in your home? Patient declined 09/03/2023 Social Connection and Isolation Panel [NHANES] A nswer Date Recorded In a typical week, how many times do you talk on the phone with family, friends, or neighbors? Patient declined 09/03/2023 How often do you get togethe r with friends or relatives? Patient declined 09/03/2023 How often do you attend anabaptism or rastafari serv ices? Patient declined 09/03/2023 Do you belong to any clubs o r organizations such as anabaptism groups, unions, fraternal or athletic groups, or [...] Total Score - Questions 1-9 0 07/31 [facility] - Occupational [...] Sign Reading Time Taken Comments Blood Pressure 154/68 05/14/2024 10:09 AM CDT Pulse 71 05/14/2024 10:09 AM CDT Temperature 36.5 ??C (97.7 ??F) 05/14/2024 10:09 AM C DT Respiratory Rate 18 05/14/2024 10:09 AM CDT Oxygen Saturation 98% 05/14/2024 10:09 AM CDT Inhaled Oxygen Concentration - - Weight 89.2 kg (196 lb 9.6 oz) 05/14/2024 10:09 AM CDT Height 182.9 cm (6') 05/14/2024 10:09 AM CDT Body Mass Index 26.66 05/14/2024 10:09 AM CDT documented in this encounter Progress Notes * Mayra Duenas - 05/14/2024 10:00 AM CDT Outpatient Hem/Onc Progress Note Interval history: Iván Dumont is a 78 y.o. male seen today for follow up of severe thrombocytopenia. Patient requests to be called Norberto. Norberto is here today accompanied by Yannick living adjacent to facility for support. Norberto completed BMBX on 09/22/23 [...] 04/12/24 after experiencing fall at facility kitchen. Patient denies LOC or large hematoma. Norberto denies feeling dizzy prior to fall. He reports kitchen is tight with possibility of fall due to object. Norberto denies nausea or stomach upset. Denies diarrhea or change in stool. He denies any current urinary retention, hematuria, or dysuria. Denies fevers, chills, cough, or other signs of infection. He has not been on anticoagulation ever since his platelet count dropped less than 50 K. Reviewed patients past medical, surgical, social, and family history. Outpatient Medications Marked as Taking for the 05/14/24 encounter (Office Visit) with Michael Ahmadi MD [...] (FLOMAX) 0.4 MG Capsule Allergies as of 05/14/2024 (No Known Allergies) REVIEW OF SYSTEMS ROS Physical Exam Physical Exam Constitutional: Appearance: Normal [...] IRONSATURATI 27 02/29/2024 FERRITIN 365 (H) 02/29/2024 [id number] 486 03/15/2023 PLT TREND: PLATELET COUNT Latest [...] (L) 04/10/24 13 (LL) 04/12/24 45 (L) Legend: (L) Low (LL) Low Panic DIAGNOSTIC [...] today to assess current PLT levels. 3. Repeat CBC and CMP today to ensure patient doesn't need oral steroids for critical PLT levels. Will contact [facility] if this is needed. 4. HOLD ALL ANTICOAGULANTS to prevent recurrent bleeding including hematuria secondary to low platelet levels. Would not resume anticoagulation unless his platelet count is consistently over 50 K. Reviewed patient should avoid ASA, NSAIDs, and Xarelto. 5. Discussed bleeding precautions with Norberto and [...] exercises as directed after recent hospital admission. Will call with any adjustments to medication after CBC results later today Follow up in 6-7 weeks with labs same day Labs: CBC, CMP The patient was given an opportunity to ask questions, and all questions answered to patient's satisfaction. Patient verbalizes understanding of the plan as outlined above. The documentation for this visit was completed by Mayra Duenas acting as a scribe for Michael Valdovinos MD. 05/14/2024, 10:34 AM CDT * Michael Ahmadi MD - 05/14/2024 10:00 AM CDT Outpatient Hem/Onc Progress Note Interval history: Iván Dumont is a 78 y.o. male seen today for follow up of severe thrombocytopenia. Patient requests to be called Norberto. Norberto is here today accompanied by Yannick living adjacent to facility for support. Norberto completed BMBX on 09/22/23 [...] 04/12/24 after experiencing fall at facility kitchen. Patient denies LOC or large hematoma. Norberto denies feeling dizzy prior to fall. He reports kitchen is tight with possibility of fall due to object. Norberto denies nausea or stomach upset. Denies diarrhea or change in stool. He denies any current urinary retention, hematuria, or dysuria. Denies fevers, chills, cough, or other signs of infection. He has not been on anticoagulation ever since his platelet count dropped less than 50 K. Reviewed patients past medical, surgical, social, and family history. Outpatient Medications Marked as Taking for the 05/14/24 encounter (Office Visit) with Michael Ahmadi MD [...] (FLOMAX) 0.4 MG Capsule Allergies as of 05/14/2024 (No Known Allergies) REVIEW OF SYSTEMS ROS Physical Exam Physical Exam Constitutional: Appearance: Normal [...] IRONSATURATI 27 02/29/2024 FERRITIN 365 (H) 02/29/2024 [id number] 486 03/15/2023 PLT TREND: PLATELET COUNT Latest [...] (L) 04/10/24 13 (LL) 04/12/24 45 (L) Legend: (L) Low (LL) Low Panic DIAGNOSTIC [...] malignant changes likely related to BPH Plan: 1.Reviewed patient's recent clinical symptoms and lab results from the ER a couple of weeks ago. His platelet count was around 50 K. His medication list the shelter does show that he has been taking Promacta 50 mg p.o. daily. Will check CBC today and determine if we need to increase his dose. Will contact patient's nurse with instructions. 2. Continue Promacta 50 mg from specialty pharmacy. Will obtain labs today to assess current PLT levels. 3. Repeat CBC and CMP today to ensure patient doesn't need oral steroids for critical PLT levels. Will contact [facility] if this is needed. 4. HOLD ALL ANTICOAGULANTS to prevent recurrent bleeding including hematuria secondary to low platelet levels. Would not resume anticoagulation unless his platelet count is consistently over 50 K. Reviewed patient should avoid ASA, NSAIDs, and Xarelto. 5. Discussed bleeding precautions with Norberto and [...] exercises as directed after recent hospital admission. Will call with any adjustments to medication after CBC results later today Follow up in 6-7 weeks with labs same day Labs: CBC, CMP The patient was given an opportunity to ask questions, and all questions answered to patient's satisfaction. Patient verbalizes understanding of the plan as outlined above. The documentation for this visit was completed by Mayra Duenas acting as a scribe for Michael Valdovinos MD. 05/14/2024, 10:46 AM CDT The documentation recorded by the scribe was completed while in the exam room with me and the patient. The documentation accurately reflects the service I personally performed and the decisions made by me. I have confirmed and edited the documentation as necessary. Michael Ahmadi MD 05/14/2024, 10:46 AM CDT documented in this encounter Miscellaneous Notes * Interdisciplinary - Colleen Cherry - 05/14/2024 10:00 AM CDT The patient reports no physical complaints during today's visit. Pain score is 0. * Interdisciplinary - Colleen Cherry - 05/14/2024 10:00 AM CDT AVS printed. Patient will follow up in 6-7 weeks with labs in office. Labs also completed in officeprior to today's follow up. 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 Thrombocytopenia (HCC) Thrombocytopenia, unspecified documented in this encounter Additional Health Concerns Assessment Noted Time PHQ-9 Depression Total Score: 0 08/14/19 3:02 PM CRIME VICTIM SPECIALIST documented as of this encounter Care Teams Terrazzo Roller Relationship Specialty Start Date End Date Irving Jeffries MD [address] [place] [address] PCP - General Internal Medicine 07/16/21 07/04/24 Ton Ling APRN, CLASSIFICATIONS OFFICER CC/CM [address] [place] [address] Nurse Practitioner Advanced Practice Nurse 04/24/23 Ame Scanlon APRN, CLASSIFICATIONS OFFICER CC/CM #[address] [facility] [address] [place] [address] Nurse Practitioner Cardiology 08/23/23 Michael Ahmadi MD [address] [place] [address] Consulting Physician Medical Oncology 07/26/23 documented as of this encounter
--- OUTSIDE RECORDS SUMMARY | 2024-07-28 14:05 | XMS_ITS | Encounter Summary ---
Author Organization [facility] Address [address] [place] [place] [address] Phone Care Team Providers Care Crm Business Analyst Name Role Phone Irving Jeffries MD Primary Care Provider [phone] Ton Ling AUDIO ENGINEER, CASH POSTING CLERK Unavailable Ame Scanlon AUDIO ENGINEER, CASH POSTING CLERK Unavailable Michael Ahmadi MD Unavailable Encounter Details Date Type Department Care Team (Late st Contact Info) Description 05/21/2024 Telephone [facility] - Internal Medicine - Tori [address] [place] [address] Irving Jeffries MD [address] [facility] [place] [address] Social History Tobacco Use Types Packs/Day Years Used Date Smoking Tobacco: Former Cigarettes 2 20 Passive Smoke Exposure: Past Smokeless Tobacco: Never Alcohol Use Standard Drinks/Week Comments Not Currently 0 (1 standard drink = 0.6 oz pur e alcohol) [facility] Utilities Answer Date Recorded In [...] declined 09/03/2023 How often do you attend sikh or roman catholic serv ices? Patient declined 09/03/2023 Do you belong to any clubs o r organizations such as sikh groups, unions, fraternal or athletic groups, or [...] Total Score - Questions 1-9 0 07/31 [facility] - Occupational Stress Questionnaire Answer Date [...] place to sleep or slept in a [place] health care facility (including now)? Patient declined 09/03/2023 Sexually Active Control Partners Comments Never Sex and Gender Information Value Date Recorded Sex Assigned at Not on file Legal Sex Male 11:18 PM CDT Gender Identity Not on file Sexual Orientation Not on file documented as of this encounter Miscellaneous Notes * Telephone Encounter - Quynh Duncan RN - 05/22/2024 2:01 PM CDT Discontinued from med list * Telephone Encounter - Chloe Rosenbaum - 05/21/2024 2:14 PM CDT Lenora with [facility] is requesting Discontinue orders for the Senakot, Metamucil, and Miralax. He has not been taking these but they are still listed in his chart. Phone - [phone] [facility] Also please send D/C orders to Pharmacy. documented in this encounter Plan of Treatment Not on file documented as of this encounter Visit Diagnoses Not on filedocumented in this encounter Additional Health Concerns Assessment Noted Time PHQ-9 Depression Total Score: 0 08/14/19 24 3:02 PM SUPERVISOR OF OFFICIALS documented as of this encounter Care Teams Crm Business Analyst Relationship Specialty Start Date End Date Irving Jeffries MD [address] [place] [address] PCP - General Internal Medicine 07/16/21 07/04/24 Ton Ling APRN, CASH POSTING CLERK [address] [place] [address] Nurse Practitioner Advanced Practice Nurse 04/24/23 Ame Scanlon APRN, CASH POSTING CLERK #2 [facility] [address] [place] [address] Nurse Practitioner Cardiology 08/23/23 Michael Ahmadi MD [address] [place] [address] Consulting Physician Medical Oncology 07/26/23 documented as of this encounter
--- OUTSIDE RECORDS SUMMARY | 2024-07-28 14:05 | XMS_ITS | Encounter Summary ---
Author Organization [facility] Address [address] [place] [address] Phone Care Team Providers Care Oncology Patient Navigator Name Role Phone Irving Jeffries MD Primary Care Provider Ton Ling CONTROL SYSTEMS DRAFTING OFFICER, ARCHITECTURAL DESIGN LECTURER Unavailable Ame Scanlon CONTROL SYSTEMS DRAFTING OFFICER, ARCHITECTURAL DESIGN LECTURER Unavailable Michael Ahmadi MD Unavailable [phone] Reason for Visit * Reason Onset Date Comments Medication Refill 03/13/2024 Encounter Details Date Type Department Care Team (Late st Contact Info) Description 03/13/2024 Refill [facility] - Internal Medicine - Tori [address] [place] [address] Irving Jeffries MD [address] [place] [address] Medication Refill Social History Tobacco Use Types Packs/Day Years Used Date Smoking Tobacco: Former Cigarettes 2 20 Passive Smoke Exposure: Past Smokeless Tobacco: Never Alcohol Use Standard Drinks/Week Comments Not Currently 0 (1 standard drink = 0.6 oz pur e alcohol) [facility] Utilities Answer Date Recorded In the past 12 months has [employer] electric, gas, oil, or water company threatened [...] declined 09/03/2023 How often do you attend congregational or episcopal serv ices? Patient declined 09/03/2023 Do you belong to any clubs o r organizations such as congregational groups, unions, fraternal or athletic groups, or [...] Total Score - Questions 1-9 0 07/31 [facility] - Occupational Stress Questionnaire Answer Date [...] place to sleep or slept in a senior living (including now)? Patient declined 09/03/2023 Sexually Active Control Partners Comments Never Sex and Gender Information Value Date Recorded Sex Assigned at Not on file Legal Sex Male 11:18 PM CDT Gender Identity Not on file Sexual Orientation Not on file documented as of this encounter Miscellaneous Notes * Telephone Encounter - Quynh Duncan RN - 03/13/2024 3:20 PM CDT Medication(s) refilled and signed per [facility] Chronic Medication Refill Standing Order for Pediatricand Adult Patients. Requested Prescriptions Pending Prescriptions Disp Refills amLODIPine (NORVASC) 10 MG Tablet 30 Tablet 11 Sig: Take 1 Tablet by mouth daily. Calcium-Channel Blockers Protocol Passed - 03/13/2024 3:16 PM Passed - BP on record in the past year Clinician-entered: BP Readings from Last 3 Encounters: 02/29/24 126/62 01/17/24 (!) 128/91 12/19/23 145/70 Patient-entered: No data recorded Passed - Visit with relevant provider in past 12 months or upcoming 90 days Recent Visits Date Type Provider Dept 10/24/23 Nursing Facility Irving Jeffries MD [facility] 09/28/23 Office Visit Irving Jeffries MD [facility] 08/28/23 Office Visit JeffriesIrving MD [facility] 08/14/23 [facility] Showing recent visits within past 365 days and meeting all other requirements Future Appointments No visits were found meeting these conditions. Showing future appointments within next 90 days and meeting all other requirements * Telephone Encounter - Chloe Rosenbaum - 03/13/2024 2:58 PM CDT Med rf from Pharmacy Medication - Amlodipien 10 mgtab Quantity of 30 [facility] documented in this encounter Plan of Treatment Not on file documented as of this encounter Visit Diagnoses Not on filedocumented in this encounter Additional Health Concerns Assessment Noted Time PHQ-9 Depression Total Score: 0 08/14/19 3:02 PM WATCH ASSEMBLY INSPECTOR documented as of this encounter Care Teams Oncology Patient Navigator Relationship Specialty Start Date End Date Irving Jeffries MD [address] [place] [address] PCP - General Internal Medicine 07/16/21 07/04/24 Ton Ling APRN, ARCHITECTURAL DESIGN LECTURER [address] [place] [address] Nurse Practitioner Advanced Practice Nurse 04/24/23 Ame Scanlon, CONTROL SYSTEMS DRAFTING OFFICER, ARCHITECTURAL DESIGN LECTURER #[address] [facility] [address] [place] [address] Nurse Practitioner Cardiology 08/23/23 Michael Ahmadi MD [address] [place] [address] Consulting Physician Medical Oncology 07/26/23 documented as of this encounter
--- OUTSIDE RECORDS SUMMARY | 2024-07-28 14:05 | XMS_ITS | Encounter Summary ---
Author Organization [facility] Address [address] [place] [address] Phone Care Team Providers Care Drying Room Operator Name Role Phone Irving Jeffries MD Primary Care Provider Ton Ling BIOMEDICAL SPECIALIST, SNAILER Unavailable [phone] Ame Scanlon BIOMEDICAL SPECIALIST, SNAILER Unavailable Michael Ahmadi MD Unavailable Encounter Details Date Type Department Care Team (Late st Contact Info) Description 04/23/2024 [facility]phone [facility] - Tori [address] [place] [address] Kell Michelle, [facility] [address] [place] [address] Social History Tobacco Use Types Packs/Day Years Used Date Smoking Tobacco: Former Cigarettes 2 20 Passive Smoke Exposure: Past Smokeless Tobacco: Never Alcohol Use Standard Drinks/Week Comments Not Currently 0 (1 standard drink = 0.6 oz pur e alcohol) [facility] Utilities Answer Date Recorded In the [...] declined 09/03/2023 How often do you attend yazidi or mandaen serv ices? Patient declined 09/03/2023 Do you belong to any clubs o r organizations such as yazidi groups, unions, fraternal or athletic groups, or [...] Total Score - Questions 1-9 0 07/31 [facility] - Occupational Stress Questionnaire Answer Date [...] or rent on time? Patient declined 09/03/19 In the last 12 months, how many places have you lived? 1 09/03/2023 In the last 12 months, was t here a time when you did not have a steady place to sleep or slept in a fci (including now)? Patient declined 09/03/2023 Sexually Active Control Partners Comments Never Sex and Gender Information Value Date Recorded Sex Assigned at Not on file Legal Sex Male 11:18 PM CDT Gender Identity Not on file Sexual Orientation Not on file documented as of this encounter Miscellaneous Notes * Telephone Encounter - Kell Michelle PAC - 04/23/2024 2:31 PM CDT error documented in this encounter Plan of Treatment Not on file documented as of this encounter Visit Diagnoses Not on filedocumented in this encounter Additional Health Concerns Assessment Noted Time PHQ-9 Depression Total Score: 0 08/14/19 3:02 PM SIDEROGRAPHIST documented as of this encounter Care Teams Drying Room Operator Relationship Specialty Start Date End Date Irving Jeffries MD [address] [place] [address] PCP - General Internal Medicine 07/16/21 07/04/24 Ton Ling, BIOMEDICAL SPECIALIST, SNAILER [address] [place] [address] Nurse Practitioner Advanced Practice Nurse 04/24/23 Ame Scanlon APRN, SNAILER #2 [facility], [address] [place] [address] Nurse Practitioner Cardiology 08/23/23 Michael Ahmadi MD [address] [place] [address] Consulting Physician Medical Oncology 07/26/23 documented as of this encounter
--- OUTSIDE RECORDS SUMMARY | 2024-07-28 14:05 | XMS_ITS | Encounter Summary ---
Author Organization [facility] Address [address] [facility] [place] [address] Phone Care Team Providers Care Venue Attendant Name Role Phone Irving Jeffries MD Primary Care Provider [phone] Ton Ling ESTATE PLANNING DIRECTOR, SNAKER Unavailable Ame Scanlon ESTATE PLANNING DIRECTOR, SNAKER Unavailable + [phone] Michael Ahmadi MD Unavailable [phone] Reason for Visit * Reason Comments Follow-up Encounter Details Date Type Department Care Team (Late st Contact Info) Description 04/03/2024 10:40 AM CDT Office Visit [facility] On[facility] [address] [place] [id number] Michael Ahmadi MD [address] [place] [address] Chronic ITP (idiopathic thrombocytopenia) (HCC) (Primary Dx); Thrombocytopenia (HCC); Iron deficiency Discharge Disposition: Discharged to home or Selfcare Social History Tobacco Use Types Packs/Day Years Used Date Smoking Tobacco: Former Cigarettes 2 20 Passive Smoke Exposure: Past Smokeless Tobacco: Never Tobacco Cessation:Counseling Given: Not Answered Alcohol Use Standard Drinks/Week Comments Not Currently 0 (1 standard drink = 0.6 oz pur e alcohol) [facility] Utilities Answer Date Recorded In the past 12 months has th e electric, gas, oil, or water [employer] threatened to shut off services in your home? Patient declined 09/03/2023 Social Connection and Isolation Panel [NHANES] A nswer Date Recorded In a typical week, how many times do you talk on the phone with family, friends, or neighbors? Patient declined 09/03/2023 How often do you get togethe r with friends or relatives? Patient declined 09/03/2023 How often do you attend pentecostal or gnosticist serv ices? Patient declined 09/03/2023 Do you belong to any clubs o r organizations such as pentecostal groups, unions, fraternal or athletic groups, or [...] Total Score - Questions 1-9 0 07/31 [facility] - Occupational [...] place to sleep or slept in a jail (including now)? Patient declined 09/03/2023 Sexually Active Control Partners Comments Never Sex and Gender Information Value Date Recorded Sex Assigned at Not on file Legal Sex Male 11:18 PM CDT Gender Identity Not on file Sexual Orientation Not on file documented as of this encounter Last Filed Vital Signs Vital Sign Reading Time Taken Comments Blood Pressure 147/63 04/03/2024 10:40 AM CDT Pulse 59 04/03/2024 10:40 AM CDT Temperature 36.4 ??C (97.5 ??F) 04/03/2024 10:40 AM C DT Respiratory Rate 18 04/03/2024 10:40 AM CDT Oxygen Saturation 98% 04/03/2024 10:40 AM CDT Inhaled Oxygen Concentration - - Weight 89.5 kg (197 lb 4.8 oz) 04/03/2024 10:40 AM CDT Height 182.9 cm (6') 04/03/2024 10:40 AM CDT Body Mass Index 26.76 04/03/2024 10:40 AM CDT documented in this encounter Progress Notes * Mayra Duenas - 04/03/2024 10:40 AM CDT Outpatient Hem/Onc Progress Note Interval [...] 17K. Repeat CBC on 02/29/24 PLT 37K. Norberto and Yannick deny starting Promacta due to not receiving medication from specialty pharmacy. Patient denies any bleeding episodes occurring since last OV. Norberto reports appetite remains stable. He denies any current urinary retention, hematuria, or dysuria. Denies fevers, chills, cough, or other signs of infection. He has not been on anticoagulation ever since his platelet count dropped less than 50 K. Reviewed patients past medical, surgical, social, and family history. No outpatient medications have been marked as taking for the 04/03/24 encounter (Appointment) with Michael Ahmadi MD. Allergies as of 04/03/2024 (No Known Allergies) REVIEW OF SYSTEMS ROS [...] DATA: Lab Results Component Value Date WBC 8.88 02/29/2024 RBC 4.42 02/29/2024 HEMOGLOBIN 13.4 02/29/2024 HEMATOCRIT 40.1 02/29/2024 MCV 90.7 02/29/2024 MCH 30.3 02/29/2024 MCHC 33.4 02/29/2024 PLATELETCNT 37 (L) 02/29/2024 RDW 15.0 02/29/2024 LYMPHOCYTES 17.5 (L) 02/29/2024 RELEOS 0.0 02/29/2024 RELBAS 0.6 02/29/2024 ANC 5.97 (H) 02/29/2024 MONOCYTES 1.31 (H) 02/29/2024 EOSINOPHILS 0.00 02/29/2024 BASOPHILS 0.05 02/29/2024 Lab Results Component Value Date SODIUM 140 02/29/2024 POTASSIUM 4.4 02/29/2024 CHLORIDE 110 (H) 02/29/2024 ANIONGAP 11.4 02/29/2024 GLUCOSE 95 02/29/2024 BUN 15 02/29/2024 CREATININE 0.89 02/29/2024 TOTALPROTEIN 6.6 02/29/2024 ALBUMIN 4.1 02/29/2024 CALCIUM 9.3 02/29/2024 SGPTALT 16 02/29/2024 ALKALINEPHO 81 02/29/2024 Lab Results Component Value Date IRON 73 [...] IRONSATURATI 27 02/29/2024 FERRITIN 365 (H) 02/29/2024 [id number] 486 03/15/2023 PLT TREND: PLATELET COUNT Latest [...] 34 (L) 02/29/2024 9:11 AM 37 (L) Legend: (L) Low (LL) Low Panic [...] changes likely related to BPH Plan: 2. START Promacta 50 mg once medication arrives from specialty pharmacy. Will obtain labs today to assess current PLT levels. 3. Repeat CBC and CMP today to ensure patient doesn't need oral steroids for critical PLT levels. Will contact [facility] if this is needed. 4. HOLD ALL [...] exercises as directed after recent hospital admission. Follow up in 4-5 weeks with labs at living facility prior Labs: CBC, CMP The patient was given an opportunity to ask questions, and all questions answered to patient's satisfaction. Patient verbalizes understanding of the plan as outlined above. The documentation for this visit was completed by Mayra Duenas acting as a scribe for Michael Valdovinos MD. 04/03/2024, 10:51 AM CDT * Michael Ahmadi MD - 04/03/2024 10:40 AM CDT Outpatient Hem/Onc Progress Note Interval history: Iván Dumont is a 78 y.o. male seen today for follow up of severe thrombocytopenia. Patient requests to be called Norberto. Norberto is here today accompanied by Yannick noriega adjacent to facility for support. Norberto completed BMBX on 09/22/23 with normo-cellular marrow with absent iron stores. Norberto's PLT level was 17K on 01/12/24. Took dex 40 mg po daily for 4 days 01/15/24. Labs on 01/31/24- PLT 17K. Repeat CBC on 02/29/24 PLT 37K. Norberto and Yannick deny starting Promacta due to not receiving medication from specialty pharmacy. Patient denies any bleeding episodes occurring since last OV. Norberto reports appetite remains stable. He denies any current urinary retention, hematuria, or dysuria. Denies fevers, chills, cough, or other signs of infection. He has not been on anticoagulation ever since his platelet count dropped less than 50 K. Reviewed patients past medical, surgical, social, and family history. Outpatient Medications Marked as Taking for the 04/03/24 encounter (Office Visit) with Michael Ahmadi MD Medication Sig Dispense Refill amLODIPine (NORVASC) 10 MG Tablet Take 1 Tablet by mouth daily. 30 Tablet 11 cloZAPine (CLOZARIL) 25 MG Tablet Take 50 mg by mouth nightly. Clozapine 50 MG Tablet finasteride (PROSCAR) 5 MG Tablet metoprolol tartrate (LOPRESSOR) 25 MG Tablet Take 25 mg by mouth 2 times daily. omeprazole (PriLOSEC) 20 MG CAPSULE DELAYED RELEASE Take 1 Capsule by mouth in the morning and at bedtime. 60 Capsule 3 Psyllium (REGULOID PO) Take by mouth. senna (SENOKOT) 8.6 MG Tablet Take 1 Tablet by mouth daily. 30 Tablet 0 sertraline (ZOLOFT) 50 MG Tablet Take 1 Tablet by mouth daily. tamsulosin (FLOMAX) 0.4 MG Capsule Allergies as of 04/03/2024 (No Known Allergies) REVIEW OF SYSTEMS ROS [...] DATA: Lab Results Component Value Date WBC 8.88 02/29/2024 RBC 4.42 02/29/2024 HEMOGLOBIN 13.4 02/29/2024 HEMATOCRIT 40.1 02/29/2024 MCV 90.7 02/29/2024 MCH 30.3 02/29/2024 MCHC 33.4 02/29/2024 PLATELETCNT 37 (L) 02/29/2024 RDW 15.0 02/29/2024 LYMPHOCYTES 17.5 (L) 02/29/2024 RELEOS 0.0 02/29/2024 RELBAS 0.6 02/29/2024 ANC 5.97 (H) 02/29/2024 MONOCYTES 1.31 (H) 02/29/2024 EOSINOPHILS 0.00 02/29/2024 BASOPHILS 0.05 02/29/2024 Lab Results Component Value Date SODIUM 140 02/29/2024 POTASSIUM 4.4 02/29/2024 CHLORIDE 110 (H) 02/29/2024 ANIONGAP 11.4 02/29/2024 GLUCOSE 95 02/29/2024 BUN 15 02/29/2024 CREATININE 0.89 02/29/2024 TOTALPROTEIN 6.6 02/29/2024 ALBUMIN 4.1 02/29/2024 CALCIUM 9.3 02/29/2024 SGPTALT 16 02/29/2024 ALKALINEPHO 81 02/29/2024 Lab Results Component Value Date IRON 73 [...] IRONSATURATI 27 02/29/2024 FERRITIN 365 (H) 02/29/2024 [id number] 486 03/15/2023 PLT TREND: PLATELET COUNT Latest [...] 34 (L) 02/29/2024 9:11 AM 37 (L) Legend: (L) Low (LL) Low Panic [...] likely related to BPH Plan: 1. Reviewed documentation and examination done by nurse practitioner. Patient has not started Promacta due to some insurance issues. Clinically asymptomatic without any bleeding or bruising issue. Will check CBC today and assess if he needs short course of dexamethasone while we await initiation ofPromacta. 2. START Promacta 50 mg once medication arrives from specialty pharmacy. Will obtain labs today to assess current PLT levels. 3. Repeat CBC and CMP today to ensure patient doesn't need oral steroids for critical PLT levels. Will contact [facility] if this is needed. 4. HOLD ALL [...] exercises as directed after recent hospital admission. Follow up in 4-5 weeks with labs at living facility prior Labs: CBC, CMP The patient was given an opportunity to ask questions, and all questions answered to patient's satisfaction. Patient verbalizes understanding of the plan as outlined above. The documentation for this visit was completed by Mayra Duenas acting as a scribe for Michael Valdovinos MD. 04/03/2024, 11:11 AM CDT The documentation recorded by the scribe was completed while in the exam room with me and the patient. The documentation accurately reflects the service I personally performed and the decisions made by me. I have confirmed and edited the documentation as necessary. Michael Ahmadi MD 04/03/2024, 11:11 AM CDT documented in this encounter Miscellaneous Notes * Tena - Colleen Cherry - 04/03/2024 10:40 AM CDT The patient reports no physical complaints during today's visit. Pain score is 0. * Tena - Colleen Cherry - 04/03/2024 10:40 AM CDT AVS printed. Patient escorted to the lab room to complete blood draw. He will follow up in 4-5 weeks with labs completed at his facility prior. * Tena - Candida Alaniz RN - 04/03/2024 10:40 AM CDT Placed call to patient pharmacy spoke to Tatiana to confirm shipment of Promacta. Per Tatiana patient has had 2 bottles delivered to his home 1 on 03/01 and a second on on 03/27/24. Spoke to Elvira and she stated they do not have a current bottle but she will look for and have Liz return call to office. Liz returned call to this Nurse and states they do not have a current bottle of the medication directed staff they will need to reach out to the pharmacy and follow up on a replacement bottle. Requested a return call to office once patient restarts medication. documented in this encounter Plan of Treatment Not on file documented as of this encounter Procedures Procedure Name Priority Date/Time Associated Diagnosis Comments CMP (COMPREHENSIVE METABOLIC PANEL) Routine 04/10/2024 12:00 AM CDT Chronic ITP (idiopathic thrombocytopenia) (HCC) COMPLETE BLOOD COUNT (CBC) WITH DIFF Routine 04/10/2024 12:00 AM CDT Chronic ITP (idiopathic thrombocytopenia) (HCC) documented in this encounter Results * CMP (COMPREHENSIVE METABOLIC PANEL) (04/10/2024 12:00 AM CDT) Blood Michael Ahmadi MD CHEMISTRY ORDERABLES Fin al Result Performing Organization Address City/[facility]/ZIP Co de Phone Number SCAN * COMPLETE BLOOD COUNT (CBC) WITH DIFF (04/10/2024 12:00 AM CDT) Blood Michael Ahmadi MD HEMATOLOGY ORDERABLES Fi nal Result SCAN documented in this encounter Visit Diagnoses Diagnosis 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 Thrombocytopenia (HCC) Thrombocytopenia, unspecified Iron deficiency Other disorders of iron metabolism documented in this encounter Additional Health Concerns Assessment Noted Time PHQ-9 Depression Total Score: 0 08/14/19 24 3:02 PM BLOCKER POLISHING documented as of this encounter Care Teams Venue Attendant Relationship Specialty Start Date End Date Irving Jeffries MD [address] [place] [address] PCP - General Internal Medicine 07/16/21 07/04/24 Ton Ling APRN, SNAKER [address] [place] [address] Nurse Practitioner Advanced Practice Nurse 04/24/23 Ame Scanlon ESTATE PLANNING DIRECTOR, SNAKER #[address] [facility], [address] [place], [place] [id number] Nurse Practitioner Cardiology 08/23/23 Michael Ahmadi MD [address] [place] [address] Consulting Physician Medical Oncology 07/26/23 documented as of this encounter
--- OUTSIDE RECORDS SUMMARY | 2024-07-28 14:05 | XMS_ITS | Encounter Summary ---
Author Organization [employer] Care Team Providers Care Customer Trainer Name Role Phone Irving Jeffries MD Primary Care Provider [phone] Ton Ling APRN, QUALITY COORDINATOR Unavailable [phone] Ame Scanlon APRN, QUALITY COORDINATOR Unavailable + [phone] Michael Ahmadi MD Unavailable [phone] Encounter Details Date Type Department Care Team (Latest Contact Info) Description 07/04/2024 Travel Social History Tobacco Use Types Packs/Day Years Used Date Smoking Tobacco: Former Cigarettes 2 20 Passive Smoke Exposure: Past Smokeless Tobacco: Never Alcohol Use Standard Drinks/Week Comments Not Currently 0 (1 standard drink = 0.6 oz pur e alcohol) [facility] Utilities Answer Date Recorded In the past 12 months has [employer], gas, oil, or water [employer] threatened to shut off services in your home? Patient declined 09/03/2023 Social Connection and Isolation Panel [NHANES] A nswer Date Recorded In a typical week, how many times do you talk on the phone with family, friends, or neighbors? Patient declined 09/03/2023 How often do you get togethe r with friends or relatives? Patient declined 09/03/2023 How often do you attend bahai or synagogue serv ices? Patient declined 09/03/2023 Do you belong to any clubs o r organizations such as bahai groups, unions, fraternal or athletic groups, or [...] Total Score - Questions 1-9 0 07/31 [facility] Occupat ional [facility] - Occupational Stress Questionnaire Answer Date Recorded [...] Depression Total Score: 0 08/14/19 3:02 PM [employer] documented as of this encounter Care Teams Customer Trainer Relationship Specialty Start Date End Date Irving Jeffries MD [address] [place] [address] PCP - General Internal Medicine 07/16/21 07/04/24 Ton Ling APRN, QUALITY COORDINATOR [address] [place] [address] Nurse Practitioner Advanced Practice Nurse 04/24/23 Ame Scanlon APRN, QUALITY COORDINATOR [address] [facility], [address] [place] [address] Nurse Practitioner Cardiology 08/23/23 Michael Ahmadi MD [address] [place] [address] Consulting Physician Medical Oncology 07/26/23 documented as of this encounter
--- OUTSIDE RECORDS SUMMARY | 2024-07-28 14:05 | XMS_ITS | Encounter Summary ---
Author Organization [facility] Address [address] [facility] [place] [address] Phone Care Team Providers Care Shampoo Technician Name Role Phone Irving Jeffries MD Primary Care Provider [phone] Ton Ling BUSINESS INTELLIGENCE DIRECTOR, AGRICULTURAL ENGINEERING TEACHER Unavailable Ame Scanlon BUSINESS INTELLIGENCE DIRECTOR, AGRICULTURAL ENGINEERING TEACHER Unavailable Michael Ahmadi MD Unavailable [phone] Encounter Details Date Type Department Care Team (Late st Contact Info) Description 02/29/2024 9:00 AM CDT Lab [facility] Oncology Services [address] [place] [id number] Michael Ahmadi MD [address] [place] [address] Thrombocytopenia (HCC); Chronic ITP (idiopathic thrombocytopenia) (HCC) Discharge Disposition: Discharged to home or Selfcare Social History Tobacco Use Types Packs/Day Years Used Date Smoking Tobacco: Former Cigarettes 2 20 Passive Smoke Exposure: Past Smokeless Tobacco: Never Alcohol Use Standard Drinks/Week Comments Not Currently 0 (1 standard drink = 0.6 oz pur e alcohol) [facility] Utilities Answer Date Recorded In the past 12 months has [employer], gas, oil, or water [employer] threatened to shut off services in your home? Patient declined 09/03/2023 Social Connection and Isolation Panel [NHANES] A nswer Date Recorded In a typical week, how many times do you talk on the phone with family, friends, or neighbors? Patient declined 09/03/2023 How often do you get togethe r with friends or relatives? Patient declined 09/03/2023 How often do you attend hindu or orthodox serv ices? Patient declined 09/03/2023 Do you [...] Total Score - Questions 1-9 0 07/31 [facility] - Occupational Stress Questionnaire Answer Date [...] on file documented as of this encounter Progress Notes * Annabel Sosa RN - 02/29/2024 9:00 AM CDT Pt ambulated back to lab room. Discussed labs needed for the day, verbalized understanding. Labs drawn from RAC, pt tolerated well, gauze and coband placed. Pt ambulated out of lab room in stable condition. documented in this encounter Plan of Treatment Not on file documented as of this encounter Procedures Procedure Name Priority Date/Time Associated Diagnosis Comments IRON,TRANSFERN,CALC.T IBC,%SAT Routine 02/29/2024 9:11 AM CDT Thrombocytopenia (HCC) CBC WITH AUTO DIFFERENTIAL Routine 02/29/2024 9:11 AM CDT Chronic ITP (idiopathic thrombocytopenia) (HCC) FERRITIN Routine 02/29/2024 9:11 AM CDT Thrombocytopenia (HCC) CMP (COMPREHENSIVE METABOLIC PANEL) Routine 02/29/2024 9:11 AM CDT Chronic ITP (idiopathic thrombocytopenia) (HCC) COMPLETE BLOOD COUNT (CBC) WITH DIFF Routine 02/29/2024 9:11 AM CDT Chronic ITP (idiopathic thrombocytopenia) (HCC) documented in this encounter Results * (ABNORMAL) CBC WITH AUTO DIFFERENTIAL (02/29/2024 9:11 AM CDT) Pathologist [facility] WBC 8.88 4.00 - 12.00 10(3)/mcL 02/29/2024 10:09 AM CDT [facility] RBC 4.42 4.40 - 5.80 10(6)/[facility] 02/29/2024 10:09 AM CDT [facility] HEMOGLOBIN (HGB) 13.4 13.0 - 16.5 g/dL 02/29/2024 10:09 AM CDT [facility] HEMATOCRIT (HCT) 40.1 38.0 - 50.0 % 02/29/2024 10:09 AM CDT [facility] MCV 90.7 82.0 - 96.0 fL 02/29/2024 10:09 AM CDT [facility] MCH 30.3 26.0 - 32.0 pg 02/29/2024 10:09 AM CDT [facility] MCHC 33.4 31.0 - 36.0 g/dL 02/29/2024 10:09 AM CDT [facility] PLATELET COUNT 37(L) 140 - 440 10(3)/[facility] 02/29/2024 10:09 AM CDT [facility] RDW 15.0 11.8 - 15.5 % 02/29/2024 10:09 AM CDT [facility] MPV 02/29/2024 10:09 AM CDT [facility] NEUTROPHILS 67.1 40.0 - 68.0 % 02/29/2024 10:09 AM CDT [facility] LYMPHOCYTES 17.5(L) 19.0 - 49.0 % 02/29/2024 10:09 AM CDT [facility] MONOCYTES 14.8(H) 3.0 - 13.0 % 02/29/2024 10:09 AM CDT [facility] EOSINOPHILS 0.0 0.0 - 8.0 % 02/29/2024 10:09 AM CDT [facility] BASOPHILS 0.6 0.0 - 1.0 % 02/29/2024 10:09 AM CDT [facility] ABSOLUTE NEUTROPHILS 5.97(H) 1.40 - 5.30 10(3)/[facility] 02/29/2024 10:09 AM CDT [facility] ABSOLUTE LYMPHOCYTES 1.55 0.90 - 3.30 10(3)/[facility] 02/29/2024 10:09 AM CDT [facility] ABSOLUTE MONOCYTES 1.31(H) 0.10 - 0.90 10(3)/[facility] 02/29/2024 10:09 AM CDT [facility] ABSOLUTE EOSINOPHIL 0.00 0.00 - 0.50 10(3)/[facility] 02/29/2024 10:09 AM CDT [facility] ABSOLUTE BASOPHILS 0.05 0.00 - 0.10 10(3)/[facility] 02/29/2024 10:09 AM CDT [facility] NRBC PER 100 WBC 0 02/29/20 24 10:09 AM T [facility] RESULTS ARE CONSISTENT WITH PERIPHERAL SMEAR REVIEW Yes 02/29/2024 10:09 AM CDT [facility] RBC MORPHOLOGY CONSISTENT WITH INDICES Yes 02/29/2024 10:09 AM CDT [facility] POLYCHROMASIA 1+ 02/29/2024 10:09 AM CDT [facility] LARGE PLATELETS 1+ 10:09 AM T [facility] Blood Venipuncture / Unknown 02/29/2024 9:11 AM CDT 02/29/2024 9:11 AM CDT us Michael Ahmadi MD HEMATOLOGY ORDERABLES Fi nal Result [facility] [address] [place] [address] * (ABNORMAL) CMP (COMPREHENSIVE METABOLIC PANEL) (02/29/2024 9:11 AM CDT) SODIUM 140 136 - 145 mmol/L 02/29/2024 11:43 AM CDT [facility] POTASSIUM 4.4 3.5 - 5.1 mmol/L 02/29/2024 11:43 AM CDT [facility] CHLORIDE 110(H) 98 - 107 mmol/L 02/29/2024 11:43 AM CDT [facility] CO2, VENOUS 23 22 - 30 mmol/L 02/29/2024 11:43 AM CDT [facility] ANION GAP 11.4 <18.0 mmol/L 02/29/2024 11:43 AM CDT [facility] GLUCOSE 95 70 - 99 mg/dL 02/29/2024 11:43 AM CDT [facility] BUN 15 8 - 26 mg/dL 02/29/2024 11:43 AM CDT [facility] CREATININE, BLOOD 0.89 0.70 - 1.30 mg/dL 02/29/2024 11:43 AM CDT [facility] BUN/CREATININE RATIO 17 12 - 20 ratio 02/29/2024 11:43 AM CDT [facility] TOTAL PROTEIN 6.6 6.3 - 8.2 g/dL 02/29/2024 11:43 AM CDT [facility] ALBUMIN 4.1 3.5 - 5.0 g/dL 02/29/2024 11:43 AM CDT [facility] A/G RATIO 1.6 1.0 - 2.2 02/29/2024 11:43 AM CDT [facility] CALCIUM 9.3 8.7 - 10.5 mg/dL 02/29/2024 11:43 AM CDT [facility] T BILI 0.3 0.2 - 1.2 mg/dL 02/29/2024 11:43 AM CDT [facility] SGOT (AST) 13 5 - 34 U/L 02/29/2024 11:43 AM CDT [facility] SGPT (ALT) 16 0 - 55 U/L 02/29/2024 11:43 AM CDT [facility] ALKALINE PHOSPHATASE 81 40 - 150 U/L 02/29/2024 11:43 AM CDT [facility] IS THE PATIENT REQUIRED TO BE FASTING? No 02/29/2024 11:43 AM CDT [facility] GFR, ESTIMATED >60 >=60 02/29/2024 11:43 AM CDT [facility] Comment: Creatinine Clearance is the preferred criteria for selecting drug dose adjustments in renally impaired patients. ??The GFR is provided as additional pertinent clinical information. GFR is reported in mL/min/1.73 sq m. Calculation based on the Chronic Kidney Disease Epidemiology Collaboration (CKD- EPI) equation refit without adjustment for race. GFR, EST. >60 >=60 024 11:43 AM CDT [facility] GFR, EST. NONAFRICAN >60 >=60 02/29/2024 11:43 AM CDT [facility] Blood Venipuncture / Unknown 02/29/2024 9:11 AM CDT 02/29/2024 9:11 AM CDT us Michael Ahmadi MD CHEMISTRY ORDERABLES Fin al Result [facility] [address] [place] [address] * IRON,TRANSFERN,CALC.TIBC,%SAT (02/29/2024 9:11 AM CDT) IRON 73 31 - 144 mcg/dL 02/29/2024 12:58 PM CDT [facility] TRANSFERRIN 218 163 - 344 mg/dL 02/29/2024 12:58 PM CDT [facility] TIBC, CALCULATED 273 261 - 462 mcg/dL 02/29/2024 12:58 PM CDT [facility] % SATURATION * 27 15 - 62 % 02/29/2024 12:58 PM CDT [facility] Blood Venipuncture / Unknown 02/29/2024 9:11 AM CDT 02/29/2024 9:11 AM CDT [facility] PAC CHEMISTRY ORDERABLES Mireya l Result Performing Organization Address City/[facility]/ZIP Co de Phone Number [facility] [address] [place] [address] * (ABNORMAL) FERRITIN (02/29/2024 9:11 AM CDT) FERRITIN 365(H) 22 - 274 ng/mL 02/29/2024 11:21 AM CDT [facility] Blood Venipuncture / Unknown 02/29/2024 9:11 AM CDT 02/29/2024 9:11 AM CDT [facility] PAC CHEMISTRY ORDERABLES Mireya l Result Performing Organization Address City/[facility]/ZIP Co de Phone Number [facility] [address] [place] [address] documented in this encounter Visit Diagnoses Diagnosis Thrombocytopenia (HCC) Thrombocytopenia, unspecified Chronic ITP (idiopathic thrombocytopenia) (HCC) Immune thrombocytopenic purpura documented in this encounter Additional Health Concerns Assessment Noted Time PHQ-9 Depression Total Score: 0 08/14/19 24 3:02 PM NEUROLOGY PHYSICIAN ASSISTANT documented as of this encounter Care Teams Shampoo Technician Relationship Specialty Start Date End Date Irving Jeffries MD [address] [place] [address] PCP - General Internal Medicine 07/16/21 07/04/24 Ton Ling APRN, AGRICULTURAL ENGINEERING TEACHER [address] [place] [address] Nurse Practitioner Advanced Practice Nurse 04/24/23 Ame Scanlon APRN, AGRICULTURAL ENGINEERING TEACHER [address] [address] Nurse Practitioner Cardiology 08/23/23 Michael Ahmadi MD [address] [place] [address] Consulting Physician Medical Oncology 07/26/23 documented as of this encounter
--- OUTSIDE RECORDS SUMMARY | 2024-07-28 14:05 | XMS_ITS | Encounter Summary ---
Author Organization [employer] Care Team Providers Care Wheel Cleaner Name Role Phone Irving Jeffries MD Primary Care Provider [phone] Ton Ling APRN, YARD STOCKER Unavailable [phone] Ame Scanlon APRN, YARD STOCKER Unavailable + [phone] Michael Ahmadi MD Unavailable [phone] Encounter Details Date Type Department Care Team (Latest Contact Info) Description 04/23/2024 Travel Social History Tobacco Use Types Packs/Day Years Used Date Smoking Tobacco: Former Cigarettes 2 20 Passive Smoke Exposure: Past Smokeless Tobacco: Never Alcohol Use Standard Drinks/Week Comments Not Currently 0 (1 standard drink = 0.6 oz pur e alcohol) [facility] Utilities Answer Date Recorded In the past 12 months has [employer], gas, oil, or water [employer] threatened to shut off services in your home? Patient declined 09/03/2023 Social Connection and Isolation Panel [NHANES] A nswer Date Recorded In a typical week, how many times do you talk on the phone with family, friends, or neighbors? Patient declined 09/03/2023 How often do you get togethe r with friends or relatives? Patient declined 09/03/2023 How often do you attend lutheran or rastafarian serv ices? Patient declined 09/03/2023 Do you belong to any clubs o r organizations such as lutheran groups, unions, fraternal or athletic groups, or [...] Total Score - Questions 1-9 0 07/31 [facility] of Occupat ional [facility] - Occupational Stress Questionnaire Answer Date [...] Depression Total Score: 0 08/14/19 3:02 PM PAIL BAILER documented as of this encounter Care Teams Wheel Cleaner Relationship Specialty Start Date End Date Irving Jeffries MD [address] [place] [address] PCP - General Internal Medicine 07/16/21 07/04/24 Ton Ling APRN, YARD STOCKER [address] [place] [address] Nurse Practitioner Advanced Practice Nurse 04/24/23 Ame Scanlon APRN, YARD STOCKER [address] [facility], [address] [place] [address] Nurse Practitioner Cardiology 08/23/23 Michael Ahmadi MD [address] [place] [address] Consulting Physician Medical Oncology 07/26/23 documented as of this encounter
--- OUTSIDE RECORDS SUMMARY | 2024-07-28 14:05 | XMS_ITS | Encounter Summary ---
Author Organization [facility] Address [address] [place] [address] Phone Care Team Providers Care Employment Specialist Name Role Phone Irving Jeffries MD Primary Care Provider [phone] Ton Ling CORDWAINER, PHOTOLITHOGRAPHER Unavailable [phone] Ame Scanlon CORDWAINER, PHOTOLITHOGRAPHER Unavailable + [phone] Michael Ahamdi MD Unavailable [phone] Reason for Visit * Reason Comments Blood Infection Follow up Encounter Details Date Type Department Care Team (Late st Contact Info) Description 04/23/2024 9:30 AM CDT Office Visit [facility] - Family [facility] [address] [place] [address] Kell Michelle, PAC [address] [place] [address] Fall, initial encounter (Primary Dx); Low platelet count (HCC) Discharge Disposition: Discharged to home or Selfcare Social History Tobacco Use Types Packs/Day Years Used Date Smoking Tobacco: Former Cigarettes 2 20 Passive Smoke Exposure: Past Smokeless Tobacco: Never Tobacco Cessation:Counseling Given: No Alcohol Use Standard Drinks/Week Comments Not Currently 0 (1 standard drink = 0.6 oz pur e alcohol) [facility] Utilities Answer Date Recorded In the past 12 months has th e electric, gas, oil, or water [employer] threatened to shut off services in your home? Patient declined 09/03/2023 Social Connection and Isolation Panel [NHANES] A nswer Date Recorded In a typical week, how many times do you talk on the phone with family, friends, or neighbors? Patient declined 09/03/2023 How often do you get togethe r with friends or relatives? Patient declined 09/03/2023 How often do you attend anabaptism or pentecostalism serv ices? Patient declined 09/03/2023 Do you [...] Total Score - Questions 1-9 0 07/31 [facility] - Occupational [...] Sign Reading Time Taken Comments Blood Pressure 132/62 04/23/2024 9:38 AM CDT Pulse 74 04/23/2024 9:38 AM CDT Temperature 36.4 ??C (97.5 ??F) 04/23/2024 9:38 AM CD T Respiratory Rate 12 04/23/2024 9:38 AM CDT Oxygen Saturation 95% 04/23/2024 9:38 AM CDT Inhaled Oxygen Concentration - - Weight - - Height - - Body Mass Index - - documented in this encounter Progress Notes * Naina Lujan RMA - 04/23/2024 9:30 AM CDT Iván Dumont is a 78 y.o. male with current BMI: There is no height or weight on file to calculate BMI. Interventions discussed including: encourage daily physical activity and well- balanced diet. * Naina Lujan, A - 04/23/2024 9:30 AM CDT Iván Dumont, 78 y.o., male is here for Blood Infection (Follow up ) Medication Refills: Patient reports/denies need for medication refills. Orders Pended: no Requested Prescriptions No prescriptions requested or ordered in this encounter Home Medications Medication Sig Start Date End Date Taking? Authorizing Provider acetaminophen (TYLENOL) 325 MG Tablet Take 2 Tablets by mouth every 6 hours as needed for Mild or more severe pain. Melody Aguilar MD amLODIPine (NORVASC) 10 MG Tablet Take 1 Tablet by mouth daily. 03/13/24 Irving Jeffries MD cloZAPine (CLOZARIL) 100 MG Tablet Take 50 mg by mouth daily. Patient not taking: Reported on 01/17/2024 Melody Aguilar MD cloZAPine (CLOZARIL) 25 MG Tablet Take 50 mg by mouth nightly. Melody Aguilar MD Clozapine 50 MG Tablet 09/07/23 Melody Aguilar MD dexamethasone (DECADRON) 4 MG Tablet Take 5 tabs PO BID for 4 days Patient not taking: Reported on 04/03/2024 01/18/24 Michael Ahmadi MD eltrombopag (Promacta) 50 MG Tablet Take 1 Tablet by mouth every morning (before breakfast). Patient not taking: Reported on 04/03/2024 02/29/24 Michael Ahmadi MD finasteride (PROSCAR) 5 MG Tablet 09/11/23 Melody Aguilar MD metoprolol tartrate (LOPRESSOR) 25 MG Tablet Take 25 mg by mouth 2 times daily. Melody Aguilar MD omeprazole (PriLOSEC) 20 MG CAPSULE DELAYED RELEASE Take 1 Capsule by mouth in the morning and at bedtime. 11/07/23 Michael Ahmadi MD polyethylene glycol (GLYCOLAX, MIRALAX) 17 g Pack Take 1 Packet by mouth 2 times daily as needed for Constipation - 1st line. Dissolve in 4-8 oz of liquid. Indications: Constipation 09/05/23 Uri Ny MD Psyllium (REGULOID PO) Take by mouth. Melody Aguilar MD senna (SENOKOT) 8.6 MG Tablet Take 1 Tablet by mouth daily. 09/05/23 Uri Ny MD sertraline (ZOLOFT) 50 MG Tablet Take 1 Tablet by mouth daily. Provider, MD Melody tamsulosin (FLOMAX) 0.4 MG Capsule 09/11/23 Provider, MD Melody There are no discontinued medications. I have reviewed the home medication list with the patient and have reconciled discrepancies. The list is accurate to the best of my knowledge. Smoking Status: Social History Tobacco Use Smoking status: Former Current packs/day: 2.00 Average packs/day: 2.0 packs/day for 20.0 years (40.0 ttl pk-yrs) Types: Cigarettes Passive exposure: Past Smokeless tobacco: Never Vaping Use Vaping status: Never Used Substance Use Topics Alcohol use: Not Currently Drug use: Never Smoking Cessation Counseling Given: no Health Care Maintenance: Health Maintenance Due Topic Date Due TdaP Immunization Never done Pneumococcal Immunization (65+ years) (2 of 2 - PPSV23 or PCV20) 05/14/2016 Zoster Immunization (2 of 3) 07/19/2016 Respiratory Syncytial Virus (RSV) Immunization (Adult - or age 60+ years) (1 - 1-dose 75+ series) Never done Influenza Immunization (1) 03/31/2024 SARS-COV-2 Immunization ( season) 2024 Orders Pended: no The following BPA's have been addressed with the patient today: BMI * Kell Michelle PAC - 04/23/2024 9:30 AM CDT Chief Complaint: Chief Complaint Patient presents with Blood Infection Follow up Assessment/Plan: Diagnoses and all orders for this visit: Fall, initial encounter Low platelet count (HCC) Cont with [facility] care for low plts Recently saw [facility] and new tx started Fall precautions d/w pt and staff Pt is at his baseline Exam normal today Subjective: Mr. Iván Dumont is a 78 y.o. male here today for above. ER f/u Had a fall [place] SOB and dizzy and fell Does have low PLTS [facility] follows Recently on new med No injury No new falls No new concerns Now back to his normal baseline ROS: Review of Systems All other systems reviewed and are negative. VITAL SIGNS: BP Readings from Last 3 Encounters: 04/23/24 132/62 04/12/24 120/79 04/03/24 147/63 Wt Readings from Last 3 Encounters: 04/12/24 230 lb (104.3 kg) 04/03/24 197 lb 4.8 oz (89.5 kg) 02/29/24 195 lb (88.5 kg) Vitals: 04/23/24 0938 BP: 132/62 BP Location: Right Arm BP Position: Sitting BP Cuff Size: Regular Pulse: 74 Resp: 12 Temp: 97.5 ??F (36.4 ??C) TempSrc: Temporal SpO2: 95% There is no height or weight on file to calculate BMI. PHYSICAL EXAM: Physical Exam Vitals reviewed. HENT: Head: Normocephalic. Mouth/Throat: Mouth: Mucous membranes are moist. Cardiovascular: Rate and Rhythm: Regular rhythm. Heart sounds: Normal heart sounds. Pulmonary: Effort: Pulmonary effort is normal. Breath sounds: Normal breath sounds. Musculoskeletal: General: Normal range of motion. Skin: General: Skin is warm. Neurological: General: No focal deficit present. Mental Status: He is alert. Psychiatric: Mood and Affect: Mood normal. Labs/Studies Reviewed: Lab Results Component Value Date WBC 8.24 04/12/2024 HEMOGLOBIN 13.8 04/12/2024 HEMATOCRIT 42.7 04/12/2024 PLATELETCNT 45 (L) 04/12/2024 MCV 95.7 04/12/2024 Lab Results Component Value Date SODIUM 138 04/12/2024 POTASSIUM 4.5 04/12/2024 CHLORIDE 107 04/12/2024 CO2VEN 22 04/12/2024 ANIONGAP 13.5 04/12/2024 GLUCOSE 130 (H) 04/12/2024 BUN 16 04/12/2024 CREATININE 1.02 04/12/2024 BCRATIO8 16 04/12/2024 TOTALPROTEIN 7.0 04/12/2024 ALBUMIN 4.3 04/12/2024 AGRATIO 1.3 03/15/2023 CALCIUM 9.2 04/12/2024 TBIL 0.3 04/12/2024 SGOTAST 22 04/12/2024 SGPTALT 20 04/12/2024 ALKALINEPHO 77 04/12/2024 GFRNA >60 04/12/2024 GFRA >60 04/12/2024 No results found for: TSH Lab Results Component Value Date HGBA1C 5.8 09/03/2023 Lab Results Component Value Date CHOLESTEROL 168 03/15/2023 TRIGLYCRIDES 611 (H) 03/15/2023 HDLCHOLESTE 24 (L) 03/15/2023 LDL 0 07/29/2020 Lab Results Component Value Date PSASCREEN 9.18 (H) 03/15/2023 PSA 8.19 03/01/2023 PSATOTAL 9.75 (H) 04/24/2023 @MAMMOFINDRAYSHAWN@ EKG 12 LEAD Result Date: 04/16/2024 Atrial flutter with 5:1 AV conduction Abnormal ECG When compared with ECG of 03-SEP-2023 02:02, Atrial flutter has replaced Sinus rhythm Vent. rate has decreased BY 38 BPM ~ Confirmed by Romain Calvo ([id number]) on 04/16/2024 9:27:04 AM EKG 12 LEAD Result Date: 09/06/2023 Sinus tachycardia with premature atrial complexes Nonspecific ST abnormality Abnormal ECG When compared with ECG of 28-JUL-2023 08:38, Sinus rhythm has replaced Atrial fibrillation Criteria for Septal infarct are no longer present Nonspecific T wave abnormality no longer evident in Anterolateral leads Confirmed by Mega Gil ([id number]) on 09/06/2023 10:44:55 AM EKG 12 LEAD Result Date: 08/09/2023 Atrial fibrillation with rapid ventricular response with premature ventricular or aberrantly conducted complexes Septal infarct , age undetermined Abnormal ECG No previous ECGs available Confirmed byMega Gil ([id number]) on 08/09/2023 10:22:20 AM Recent Procedure Details No resulted procedures found. FOLLOWUP: Follow-up Information Return for Chronic Illness Visit, Follow up with PRIMARY CARE PROVIDER. LOS Today OFFICE/OP EST LVL 3 LOW MDM/20-29 MIN Past medical, surgical, social and family history has been reviewed and updated as necessary. Medications and allergies has been reviewed and updated. I discussed all new medications and potential side effects or risks associated with them. Patient is to contact our office with any concerns. Patient instructions and educational materials were given to the patient. Patient (or patient agency sales representative) demonstrates verbal understanding of instructions given. Patient should follow up with their PCP for general health maintenance needs. Patient should contact our office if their problems persist or call 911/go the to ER if issues become more persistent. If any referrals have been made, patient should contact our office with in 3-5 days if they have not heard anything from our referral team or the referring physician. documented in this encounter Plan of Treatment Not on file documented as of this encounter Visit Diagnoses Diagnosis Fall, initial encounter- Primary Low platelet count (HCC) documented in this encounter Additional Health Concerns Assessment Noted Time PHQ-9 Depression Total Score: 0 08/14/19 3:02 PM ROLL WRAPPER documented as of this encounter Care Teams Employment Specialist Relationship Specialty Start Date End Date Irving Jeffries MD [address] [place] [address] PCP - General Internal Medicine 07/16/21 07/04/24 Ton Ling APRN, PHOTOLITHOGRAPHER [address] [place] [address] Nurse Practitioner Advanced Practice Nurse 04/24/23 Ame Scanlon APRN, PHOTOLITHOGRAPHER [address] [facility], [address] [place] [address] Nurse Practitioner Cardiology 08/23/23 Michael Ahmadi MD [address] [place] [address] Consulting Physician Medical Oncology 07/26/23 documented as of this encounter
--- OUTSIDE RECORDS SUMMARY | 2024-07-28 14:05 | XMS_ITS | Encounter Summary ---
Author Organization [facility] Address [address] [place] [place] [address] Phone Care Team Providers Care Roofer Gypsum Name Role Phone Irving Jeffries MD Primary Care Provider Ton Ling NETWORKING TECHNOLOGY INSTRUCTOR, BLIND LACER Unavailable Ame Scanlon NETWORKING TECHNOLOGY INSTRUCTOR, BLIND LACER Unavailable Michael Ahmadi MD Unavailable [phone] Encounter Details Date Type Department Care Team (Late st Contact Info) Description 04/03/2024 11:20 AM CDT Lab [facility] On[facility] Services [address] [place] [id number] Michael Ahamdi MD [address] [place] [address] Chronic ITP (idiopathic thrombocytopenia) (HCC) Discharge Disposition: Discharged to home or Selfcare Social History Tobacco Use Types Packs/Day Years Used Date Smoking Tobacco: Former Cigarettes 2 20 Passive Smoke Exposure: Past Smokeless Tobacco: Never Alcohol Use Standard Drinks/Week Comments Not Currently 0 (1 standard drink = 0.6 oz pur e alcohol) [facility] Utilities Answer Date Recorded In the past 12 months has [employer], gas, oil, or water company threatened to [...] declined 09/03/2023 How often do you attend pentecostalism or holiness serv ices? Patient declined 09/03/2023 Do you belong to any clubs o r organizations such as pentecostalism groups, unions, fraternal or athletic groups, or [...] Total Score - Questions 1-9 0 07/31 [facility] - Occupational Stress Questionnaire Answer Date Recorded [...] place to sleep or slept in a chcf (including now)? Patient declined 09/03/2023 Sexually Active Control Partners Comments Never Sex and Gender Information Value Date Recorded Sex Assigned at Not on file Legal Sex Male 11:18 PM CDT Gender Identity Not on file Sexual Orientation Not on file documented as of this encounter Progress Notes * Sister Daniela Pedroza RN - 04/03/2024 11:20 AM CDT Patient ambulated to lab room. Labs obtained per orders via venipuncture. Site covered with gauze and coban. Patient left lab room in stable condition. documented in this encounter Plan of Treatment Not on file documented as of this encounter Procedures Procedure Name Priority Date/Time Associated Diagnosis Comments CBC WITH AUTO DIFFERENTIAL Routine 04/03/2024 11:07 AM CDT Chronic ITP (idiopathic thrombocytopenia) (HCC) CMP (COMPREHENSIVE METABOLIC PANEL) Routine 04/03/2024 11:07 AM CDT Chronic ITP (idiopathic thrombocytopenia) (HCC) COMPLETE BLOOD COUNT (CBC) WITH DIFF Routine 04/03/2024 11:07 AM CDT Chronic ITP (idiopathic thrombocytopenia) (HCC) documented in this encounter Results * (ABNORMAL) CBC WITH AUTO DIFFERENTIAL (04/03/2024 11:07 AM CDT) WBC 8.25 4.00 - 12.00 10(3)/mcL 04/03/2024 1:10 PM CDT [facility] RBC 4.19(L) 4.40 - 5.80 10(6)/mcL 04/03/2024 1:10 PM CDT [facility] HEMOGLOBIN (HGB) 13.0 13.0 - 16.5 g/dL 04/03/2024 1:10 PM CDT [facility] HEMATOCRIT (HCT) 39.6 38.0 - 50.0 % 04/03/2024 1:10 PM CDT [facility] MCV 94.5 82.0 - 96.0 fL 04/03/2024 1:10 PM CDT [facility] MCH 31.0 26.0 - 32.0 pg 04/03/2024 1:10 PM CDT [facility] MCHC 32.8 31.0 - 36.0 g/dL 04/03/2024 1:10 PM CDT [facility] PLATELET COUNT 78(L) 140 - 440 10(3)/mcL 04/03/2024 1:10 PM CDT [facility] RDW 14.1 11.8 - 15.5 % 04/03/2024 1:10 PM CDT [facility] MPV 04/03/2024 1:10 PM CDT [facility] NEUTROPHILS 63.3 40.0 - 68.0 % 04/03/2024 1:10 PM CDT [facility] LYMPHOCYTES 21.8 19.0 - 49.0 % 04/03/2024 1:10 PM CDT [facility] MONOCYTES 14.4(H) 3.0 - 13.0 % 04/03/2024 1:10 PM CDT [facility] EOSINOPHILS 0.0 0.0 - 8.0 % 04/03/2024 1:10 PM CDT [facility] BASOPHILS 0.5 0.0 - 1.0 % 04/03/2024 1:10 PM CDT [facility] ABSOLUTE NEUTROPHILS 5.22 1.40 - 5.30 10(3)/[facility] 04/03/2024 1:10 PM CDT [facility] ABSOLUTE LYMPHOCYTES 1.80 0.90 - 3.30 10(3)/[facility] 04/03/2024 1:10 PM CDT [facility] ABSOLUTE MONOCYTES 1.19(H) 0.10 - 0.90 10(3)/[facility] 04/03/2024 1:10 PM CDT [facility] ABSOLUTE EOSINOPHIL 0.00 0.00 - 0.50 10(3)/[facility] 04/03/2024 1:10 PM CDT [facility] ABSOLUTE BASOPHILS 0.04 0.00 - 0.10 10(3)/[facility] 04/03/2024 1:10 PM CDT [facility] NRBC PER 100 WBC 0 04/03/20 24 1:10 PM CDT [facility] RESULTS ARE CONSISTENT WITH PERIPHERAL SMEAR REVIEW Yes 04/03/2024 1:10 PM CDT [facility] RBC MORPHOLOGY CONSISTENT WITH INDICES Yes 04/03/2024 1:10 PM CDT [facility] GIANT PLATELETS 1+ 4 1:10 PM CDT [facility] LARGE PLATELETS 1+ 4 1:10 PM CDT [facility] Blood Venipuncture / Unknown 04/03/2024 11:07 AM CDT 04/03/2024 11:07 AM CDT Narrative [facility] - 04/03/2024 1:10 PM CDT Anisocytosis Platelet count may be slightly decreased due to the presence of platelet clumping. us Michael Ahmadi MD HEMATOLOGY ORDERABLES Fi nal Result [facility] [address] [place] [address] * (ABNORMAL) CMP (COMPREHENSIVE METABOLIC PANEL) (04/03/2024 11:07 AM CDT) SODIUM 140 136 - 145 mmol/L 04/03/2024 12:29 PM CDT [facility] POTASSIUM 4.2 3.5 - 5.1 mmol/L 04/03/2024 12:29 PM CDT [facility] CHLORIDE 109(H) 98 - 107 mmol/L 04/03/2024 12:29 PM CDT [facility] CO2, VENOUS 22 22 - 30 mmol/L 04/03/2024 12:29 PM CDT [facility] ANION GAP 13.2 <18.0 mmol/L 04/03/2024 12:29 PM CDT [facility] GLUCOSE 96 70 - 99 mg/dL 04/03/2024 12:29 PM CDT [facility] BUN 16 8 - 26 mg/dL 04/03/2024 12:29 PM CDT [facility] CREATININE, BLOOD 0.88 0.70 - 1.30 mg/dL 04/03/2024 12:29 PM CDT [facility] BUN/CREATININE RATIO 18 12 - 20 ratio 04/03/2024 12:29 PM CDT [facility] TOTAL PROTEIN 6.5 6.3 - 8.2 g/dL 04/03/2024 12:29 PM CDT [facility] ALBUMIN 4.2 3.5 - 5.0 g/dL 04/03/2024 12:29 PM CDT [facility] A/G RATIO 1.8 1.0 - 2.2 04/03/2024 12:29 PM CDT [facility] CALCIUM 9.0 8.7 - 10.5 mg/dL 04/03/2024 12:29 PM CDT [facility] T BILI 0.4 0.2 - 1.2 mg/dL 04/03/2024 12:29 PM CDT [facility] SGOT (AST) 16 5 - 34 U/L 04/03/2024 12:29 PM CDT [facility] SGPT (ALT) 17 0 - 55 U/L 04/03/2024 12:29 PM CDT [facility] ALKALINE PHOSPHATASE 85 40 - 150 U/L 04/03/2024 12:29 PM CDT [facility] IS THE PATIENT REQUIRED TO BE FASTING? No 04/03/2024 12:29 PM CDT [facility] GFR, ESTIMATED >60 >=60 04/03/2024 12:29 PM CDT [facility] Comment: Creatinine Clearance is the preferred criteria for selecting drug dose adjustments in renally impaired patients. ??The GFR is provided as additional pertinent clinical information. GFR is reported in mL/min/1.73 sq m. Calculation based on the Chronic Kidney Disease Epidemiology Collaboration (CKD- EPI) equation refit without adjustment for race. GFR, EST. >60 >=60 024 12:29 PM CDT [facility] GFR, EST. NONAFRICAN >60 >=60 04/03/2024 12:29 PM CDT [facility] Blood Venipuncture / Unknown 04/03/2024 11:07 AM CDT 04/03/2024 11:07 AM CDT Michael Ahmadi MD CHEMISTRY ORDERABLES Fin al Result [facility] [address] [place] [address] documented in this encounter Visit Diagnoses Diagnosis Chronic ITP (idiopathic thrombocytopenia) (HCC) Immune thrombocytopenic purpura documented in this encounter Additional Health Concerns Assessment Noted Time PHQ-9 Depression Total Score: 0 08/14/19 24 3:02 PM WINDOW GLASS CUTTER OFF documented as of this encounter Care Teams Roofer Gypsum Relationship Specialty Start Date End Date Irving Jeffries MD [address] [place] [address] PCP - General Internal Medicine 07/16/21 07/04/24 Ton Ling APRN, BLIND LACER [address] [place] [address] Nurse Practitioner Advanced Practice Nurse 04/24/23 Ame Scanlon APRN, BLIND LACER [address] [address] Nurse Practitioner Cardiology 08/23/23 Michael Ahmadi MD [address] [place] [address] Consulting Physician Medical Oncology 07/26/23 documented as of this encounter
--- OUTSIDE RECORDS SUMMARY | 2024-07-28 14:05 | XMS_ITS | Encounter Summary ---
Author Organization [employer] Care Team Providers Care Video Game Repair Technician Name Role Phone Irving Jeffries MD Primary Care Provider [phone] Ton Ling APRN, MACHINE TESTER Unavailable [phone] Ame Scanlon APRN, MACHINE TESTER Unavailable [phone] Michael Ahmadi MD Unavailable [phone] Encounter Details Date Type Department Care Team (Latest Contact Info) Description 02/29/2024 Travel Social History Tobacco Use Types Packs/Day Years Used Date Smoking Tobacco: Former Cigarettes 2 20 Passive Smoke Exposure: Past Smokeless Tobacco: Never Alcohol Use Standard Drinks/Week Comments Not Currently 0 (1 standard drink = 0.6 oz pur e alcohol) [facility] Utilities Answer Date Recorded In the past 12 months has [employer], gas, oil, or water [employer] threatened to shut off services in your home? Patient declined 09/03/2023 Social Connection and Isolation Panel [NHANES] A nswer Date Recorded In a typical week, how many times do you talk on the phone with family, friends, or neighbors? Patient declined 09/03/2023 How often do you get togethe r with friends or relatives? Patient declined 09/03/2023 How often do you attend episcopalian or yazidism serv ices? Patient declined 09/03/2023 Do you belong to any clubs o r organizations such as episcopalian groups, unions, fraternal or athletic groups, or [...] Total Score - Questions 1-9 0 07/31 [facility] - Occupational Stress Questionnaire Answer Date [...] place to sleep or slept in a mcc (including now)? Patient declined 09/03/2023 Sexually Active [...] Depression Total Score: 0 08/14/19 3:02 PM LOTTERY OFFICE MANAGER documented as of this encounter Care Teams Video Game Repair Technician Relationship Specialty Start Date End Date Irving Jeffries MD [address] [place] [address] PCP - General Internal Medicine 07/16/21 07/04/24 Ton Ling APRN, MACHINE TESTER [address] [place] [address] Nurse Practitioner Advanced Practice Nurse 04/24/23 Ame Scanlon APRN, MACHINE TESTER [address] [facility], [address] [place] [address] Nurse Practitioner Cardiology 08/23/23 Michael Ahmadi MD [address] [place] [address] Consulting Physician Medical Oncology 07/26/23 documented as of this encounter
--- OUTSIDE RECORDS SUMMARY | 2024-07-28 14:05 | XMS_ITS | Encounter Summary ---
Author Organization [facility] Address [address] [place] [address] Phone Care Team Providers Care Financial Developer Name Role Phone Irving Jeffries MD Primary Care Provider Ton Ling PHYSICAL BIOCHEMIST, BRICK TENDER Unavailable [phone] Ame Scanlon PHYSICAL BIOCHEMIST, BRICK TENDER Unavailable Michael Ahmadi MD Unavailable Encounter Details Date Type Department Care Team (Late st Contact Info) Description 04/25/2024 Telephone [facility] - Internal Medicine - [address] [place] [address] Irving Jeffries MD [address] [facility] [place] [address] Social History Tobacco Use Types Packs/Day Years Used Date Smoking Tobacco: Former Cigarettes 2 20 Passive Smoke Exposure: Past Smokeless Tobacco: Never Alcohol Use Standard Drinks/Week Comments Not Currently 0 (1 standard drink = 0.6 oz pur e alcohol) [facility] Utilities Answer Date Recorded In the past [...] How often do you attend mu-ism or jainism serv ices? Patient declined 09/03/2023 Do you [...] Total Score - Questions 1-9 0 07/31 [facility] - Occupational Stress Questionnaire Answer Date Recorded [...] encounter Miscellaneous Notes * Telephone Encounter - Irving Jeffries MD - 04/25/2024 10:36 AM CDT Knee x ray order placed. * Telephone Encounter - Scarlet Clark CMA - 04/25/2024 9:20 AM CDT Lenora @ [facility] req a xray rt. Knee. Patient has been falling and he says his rt. Knee gives out on him. Will go to [facility]. documented in this encounter Plan of Treatment Not on file documented as of this encounter Visit Diagnoses Diagnosis Chronic pain of right knee- Primary documented in this encounter Additional Health Concerns Assessment Noted Time PHQ-9 Depression Total Score: 0 08/14/19 24 3:02 PM FIRER WATERTENDER documented as of this encounter Care Teams Financial Developer Relationship Specialty Start Date End Date Irving Jeffries MD [address] [place] [address] PCP - General Internal Medicine 07/16/21 07/04/24 Ton Ling APRN, BRICK TENDER [address] [place] [address] Nurse Practitioner Advanced Practice Nurse 04/24/23 Ame Scanlon APRN, BRICK TENDER #[address] [facility] [address] [place] [address] Nurse Practitioner Cardiology 08/23/23 Michael Ahmadi MD [address] [place] [address] Consulting Physician Medical Oncology 07/26/23 documented as of this encounter
--- OUTSIDE RECORDS SUMMARY | 2024-07-28 14:05 | XMS_ITS | Encounter Summary ---
Author Organization [facility] Address [address] [facility] [place] [address] Phone Care Team Providers Care Appellate Law Clerk Name Role Phone Irving Jeffries MD Primary Care Provider Ton Ling SUBMARINE OPERATOR, SENIOR IT ENGINEER Unavailable Ame Scanlon SUBMARINE OPERATOR, SENIOR IT ENGINEER Unavailable Michael Ahmadi MD Unavailable [phone] Encounter Details Date Type Department Care Team (Late st Contact Info) Description 05/14/2024 9:40 AM CDT Lab [facility] Oncology Services [address] [place] [id number] Michael Ahmadi MD [address] [place] [address] Discharge Disposition: Discharged to home or Selfcare Social History Tobacco Use Types Packs/Day Years Used Date Smoking Tobacco: Former Cigarettes 2 20 Passive Smoke Exposure: Past Smokeless Tobacco: Never Alcohol Use Standard Drinks/Week Comments Not Currently 0 (1 standard drink = 0.6 oz pur e alcohol) [facility] Utilities Answer Date Recorded In the past [...] declined 09/03/2023 How often do you attend baptist or cheondoism serv ices? Patient declined 09/03/2023 Do you belong to any clubs o r organizations such as baptist groups, unions, fraternal or athletic groups, or [...] Total Score - Questions 1-9 0 07/31 [facility] Occupat ional [facility] - Occupational Stress Questionnaire Answer Date [...] place to sleep or slept in a longterm (including now)? Patient declined 09/03/2023 Sexually Active [...] - Inhaled Oxygen Concentration - - Weight 89.2 kg (196 lb 9.6 oz) 05/14/2024 10:04 AM CDT Height - - Body Mass Index 26.66 04/12/2024 11:33 AM CDT documented in this encounter Progress Notes * Sister Daniela Pedroza RN - 05/14/2024 9:40 AM CDT Patient arrived to lab room. Labs obtained per orders via venipuncture without incident. Site covered with gauze and coban. Patient left lab room in stable condition for follow up with provider. documented in this encounter Plan of Treatment Not on file documented as of this encounter Procedures Procedure Name Priority Date/Time Associated Diagnosis Comments CMP (COMPREHENSIVE METABOLIC PANEL) STAT 05/14/2024 10:01 AM CDT documented in this encounter Results * CMP (Comprehensive Metabolic Panel) (05/14/2024 10:01 AM CDT) SODIUM 138 136 - 145 mmol/L 05/14/2024 10:32 AM CDT [facility] POTASSIUM 4.4 3.5 - 5.1 mmol/L 05/14/2024 10:32 AM CDT [facility] CHLORIDE 106 98 - 107 mmol/L 05/14/2024 10:32 AM CDT [facility] CO2, VENOUS 24 22 - 30 mmol/L 05/14/2024 10:32 AM CDT [facility] ANION GAP 12.4 <18.0 mmol/L 05/14/2024 10:32 AM CDT [facility] GLUCOSE 78 70 - 99 mg/dL 05/14/2024 10:32 AM CDT [facility] BUN 15 8 - 26 mg/dL 05/14/2024 10:32 AM CDT [facility] CREATININE, BLOOD 0.87 0.70 - 1.30 mg/dL 05/14/2024 10:32 AM CDT [facility] BUN/CREATININE RATIO 17 12 - 20 ratio 05/14/2024 10:32 AM CDT [facility] TOTAL PROTEIN 6.8 6.3 - 8.2 g/dL 05/14/2024 10:32 AM CDT [facility] ALBUMIN 4.3 3.5 - 5.0 g/dL 05/14/2024 10:32 AM CDT [facility] A/G RATIO 1.7 1.0 - 2.2 05/14/2024 10:32 AM CDT [facility] CALCIUM 9.2 8.7 - 10.5 mg/dL 05/14/2024 10:32 AM CDT [facility] T BILI 0.4 0.2 - 1.2 mg/dL 05/14/2024 10:32 AM CDT [facility] SGOT (AST) 20 5 - 34 U/L 05/14/2024 10:32 AM CDT [facility] SGPT (ALT) 21 0 - 55 U/L 05/14/2024 10:32 AM CDT [facility] ALKALINE PHOSPHATASE 96 40 - 150 U/L 05/14/2024 10:32 AM CDT [facility] GFR, ESTIMATED >60 >=60 05/14/2024 10:32 AM CDT [facility] Comment: Creatinine Clearance is the preferred criteria for selecting drug dose adjustments in renally impaired patients. ??The GFR is provided as additional pertinent clinical information. GFR is reported in mL/min/1.73 sq m. Calculation based on the Chronic Kidney Disease Epidemiology Collaboration (CKD- EPI) equation refit without adjustment for race. GFR, EST. >60 >=60 024 10:32 AM CDT [facility] GFR, EST. NONAFRICAN >60 >=60 05/14/2024 10:32 AM CDT [facility] Blood Venipuncture / Unknown 05/14/2024 10:01 AM CDT 05/14/2024 10:01 AM CDT Michael Ahmadi MD CHEMISTRY ORDERABLES Fin al Result [facility] [address] [place] [address] documented in this encounter Visit Diagnoses Not on filedocumented in this encounter Additional Health Concerns Assessment Noted Time PHQ-9 Depression Total Score: 0 08/14/19 24 3:02 PM EMR SPECIALIST documented as of this encounter Care Teams Appellate Law Clerk Relationship Specialty Start Date End Date Irving Jeffries MD [address] [place] [address] PCP - General Internal Medicine 07/16/21 07/04/24 Ton Ling, SUBMARINE OPERATOR, SENIOR IT ENGINEER [address] [place] [address] Nurse Practitioner Advanced Practice Nurse 04/24/23 Ame Scanlon APRN, SENIOR IT ENGINEER #2 [facility] [address] [place] [address] Nurse Practitioner Cardiology 08/23/23 Michael Ahmadi MD [address] [place] [address] Consulting Physician Medical Oncology 07/26/23 documented as of this encounter
--- OUTSIDE RECORDS SUMMARY | 2024-07-28 14:05 | XMS_ITS | Encounter Summary ---
Author Organization [employer] Care Team Providers Care Autopsy Pathologist Name Role Phone Irving Jeffries MD Primary Care Provider [phone] Ton Ling APRN, BALL MAKER Unavailable [phone] Ame Scanlon APRN, BALL MAKER Unavailable + [phone] Michael Ahmadi MD Unavailable [phone] Encounter Details Date Type Department Care Team (Latest Contact Info) Description 04/03/2024 Travel Social History Tobacco Use Types Packs/Day Years Used Date Smoking Tobacco: Former Cigarettes 2 20 Passive Smoke Exposure: Past Smokeless Tobacco: Never Alcohol Use Standard Drinks/Week Comments Not Currently 0 (1 standard drink = 0.6 oz pur e alcohol) [facility] Utilities Answer Date Recorded In the past 12 months has [employer] gas, oil, or water [employer] threatened to shut off services in your home? Patient declined 09/03/2023 Social Connection and Isolation Panel [NHANES] A nswer Date Recorded In a typical week, how many times do you talk on the phone with family, friends, or neighbors? Patient declined 09/03/2023 How often do you get togethe r with friends or relatives? Patient declined 09/03/2023 How often do you attend taoism or advent serv ices? Patient declined 09/03/2023 Do you belong to any clubs o r organizations such as taoism groups, unions, fraternal or athletic groups, or [...] 07/31 [facility] Occupat ional [facility] - Occupational Stress Questionnaire Answer Date [...] Depression Total Score: 0 08/14/19 3:02 PM JBOSS DEVELOPER documented as of this encounter Care Teams Autopsy Pathologist Relationship Specialty Start Date End Date Irving Jeffries MD [address] [place] [address] PCP - General Internal Medicine 07/16/21 07/04/24 Ton Ling APRN, BALL MAKER [address] [place] [address] Nurse Practitioner Advanced Practice Nurse 04/24/23 Ame Scanlon APRN, BALL MAKER [address] [facility] [place] [address] Nurse Practitioner Cardiology 08/23/23 Michael Ahmadi MD [address] [place] [address] Consulting Physician Medical Oncology 07/26/23 documented as of this encounter
--- OUTSIDE RECORDS SUMMARY | 2024-07-28 14:06 | XMS_ITS | Encounter Summary ---
Author Organization [facility] Address [address] [facility] [place] [address] Phone Care Team Providers Care Can Runner Name Role Phone Irving Jeffries MD Primary Care Provider Ton Ling AIRCRAFT PNEUDRAULICS REPAIRER, CELL REPAIRER Unavailable Ame Scanlon AIRCRAFT PNEUDRAULICS REPAIRER, CELL REPAIRER Unavailable + [phone] Michael Ahmadi MD Unavailable [phone] Encounter Details Date Type Department Care Team (Late st Contact Info) Description 11/07/2023 Telephone [facility] Oncology Services [address] [place] [address] Mary Brooks MA [place] Social History Tobacco Use Types Packs/Day Years Used Date Smoking Tobacco: Former Cigarettes 2 20 Passive Smoke Exposure: Past Smokeless Tobacco: Never Alcohol Use Standard Drinks/Week Comments Not Currently 0 (1 standard drink = 0.6 oz pur e alcohol) [facility] Utilities Answer Date Recorded In the past 12 months has [employer], gas, oil, or water company threatened to [...] declined 09/03/2023 How often do you attend jewish or orthodox serv ices? Patient declined 09/03/2023 Do you belong to any clubs o r organizations such as jewish groups, unions, fraternal or athletic groups, or [...] Total Score - Questions 1-9 0 07/31 [facility] - Occupational Stress [...] Total Score: 0 08/14/19 24 3:02 PM RESAWYER documented as of this encounter Care Teams Can Runner Relationship Specialty Start Date End Date Irving Jeffries MD [address] [place] [address] PCP - General Internal Medicine 07/16/21 07/04/24 Ton Ling APRN, CELL REPAIRER [address] [place] [address] Nurse Practitioner Advanced Practice Nurse 04/24/23 Ame Scanlon APRN, CELL REPAIRER #2 [facility] [address] [place] [address] Nurse Practitioner Cardiology 08/23/23 Michael Ahmadi MD [address] [place] [address] Consulting Physician Medical Oncology 07/26/23 documented as of this encounter
--- OUTSIDE RECORDS SUMMARY | 2024-07-28 14:06 | XMS_ITS | Encounter Summary ---
Author Organization [facility] Address [address] [place] [address] Phone Care Team Providers Care Physical Science Professor Name Role Phone Irving Jeffries MD Primary Care Provider Ton Ling COLOR DEPOSITING MACHINE TENDER, UNDRAPED ARTIST MODEL Unavailable Ame Scanlon COLOR DEPOSITING MACHINE TENDER, UNDRAPED ARTIST MODEL Unavailable Michael Ahmadi MD Unavailable Reason for Visit * Episode Based Medications (Routine) - Closed Specialty Diagnoses / Procedures Referred By Contclay t Referred To Contact Diagnoses Iron deficiency Michael Ahmadi MD [address] [place] [address] Phone: tel: fax: [facility] Oncology Services [address] [place] [address] Phone: tel: fax: Referral ID Status Reason Start Date Expiration Date Visits Re quested Visits Authorized [id number] Closed 11/13/2023 1 1 Encounter Details Date Type Department Care Team (Late st Contact Info) Description 11/22/2023 1:30 PM CDT Clinical Support [facility] Oncology Services [address] [place] [address] Michael Ahmadi MD [address] [place] [address] Iron deficiency (Primary Dx) Discharge Disposition: Discharged to home or Selfcare Social History Tobacco Use Types Packs/Day Years Used Date Smoking Tobacco: Former Cigarettes 2 20 Passive Smoke Exposure: Past Smokeless Tobacco: Never Alcohol Use Standard Drinks/Week Comments Not Currently 0 (1 standard drink = 0.6 oz pur e alcohol) [facility] Utilities Answer Date Recorded In the past 12 months has e electric, gas, oil, or water [employer] threatened to shut off services in your home? Patient declined 09/03/2023 Social Connection and Isolation Panel [NHANES] A nswer Date Recorded In a typical week, how many times do you talk on the phone with family, friends, or neighbors? Patient declined 09/03/2023 How often do you get togethe r with friends or relatives? Patient declined 09/03/2023 How often do you attend confucianist or mandaeism serv ices? Patient declined 09/03/2023 Do you belong to any clubs o r organizations such as confucianist groups, unions, fraternal or athletic groups, or [...] Total Score - Questions 1-9 0 07/31 [facility] Occupat ional Health - Occupational Stress [...] place to sleep or slept in a custodial (including now)? Patient declined 09/03/2023 Sexually Active Control Partners Comments Never Sex and Gender Information Value Date Recorded Sex Assigned at Not on file Legal Sex Male 11:18 PM CDT Gender Identity Not on file Sexual Orientation Not on file documented as of this encounter Last Filed Vital Signs Vital Sign Reading Time Taken Comments Blood Pressure 163/57 11/22/2023 1:22 PM CDT Pulse 77 11/22/2023 1:22 PM CDT Temperature 35.9 ??C (96.6 ??F) 11/22/2023 1:22 PM CD T Respiratory Rate 18 11/22/2023 1:22 PM CDT Oxygen Saturation 97% 11/22/2023 1:22 PM CDT Inhaled Oxygen Concentration - - Weight - - Height - - Body Mass Index - - documented in this encounter Miscellaneous Notes * Interdisciplinary - Leeann Tracey RN - 11/22/2023 1:30 PM CDT Pt ambulated into treatment room in stable condition. Vitals obtained. IV started x1 attempt. Flushed with ease and blood return noted. Medication side effects and intended effects reviewed with pt. Pt medicated per MD orders. Pt tolerated well. IV flushed and removed. Gauze and coban to site. Pt discharged in stable condition. documented in this encounter Plan of Treatment Not on file documented as of this encounter Visit Diagnoses Diagnosis Iron deficiency- Primary Other disorders of iron metabolism documented in this encounter Administered Medications Inactive Administered Medications - up to 3 most recent administrations Medication Order MAR Action Action Date Dose Rate Site ferric carboxymaltose (INJECTAFER) 750 mg in sodium chloride 0.9 % 250 mL IVPB 750 mg (set by rule on 11/13/2023 9:49 AM), Intravenous, ONCE, 1 dose, On Mon11/22/23 at 1400, Administer over 15 MinutesIndications:Iron deficiency New Bag 11/22/2023 1:39 PM CDT 750 mg documented in this encounter Additional Health Concerns Assessment Noted Time PHQ-9 Depression Total Score: 0 08/14/19 3:02 PM AGRONOMY INSTRUCTOR documented as of this encounter Care Teams Physical Science Professor Relationship Specialty Start Date End Date Irving Jeffries MD [address] [place] [address] PCP - General Internal Medicine 07/16/21 07/04/24 Ton Lnig APRN, UNDRAPED ARTIST MODEL [address] [place] [address] Nurse Practitioner Advanced Practice Nurse 04/24/23 Ame Scanlon APRN, UNDRAPED ARTIST MODEL [address] [facility] [address] [place] [address] Nurse Practitioner Cardiology 08/23/23 Michael Ahmadi MD [address] [place] [address] Consulting Physician Medical Oncology 07/26/23 documented as of this encounter
--- OUTSIDE RECORDS SUMMARY | 2024-07-28 14:06 | XMS_ITS | Encounter Summary ---
Author Organization [facility] Address [address] [place] [address] Phone Care Team Providers Care Sampler Pickup Name Role Phone Irving Jeffries MD Primary Care Provider Ton Ling RENTAL BOATS CARETAKER, BASKETBALLS AND FOOTBALLS REVERSER Unavailable [phone] Ame Scanlon RENTAL BOATS CARETAKER, BASKETBALLS AND FOOTBALLS REVERSER Unavailable Michael Ahmadi MD Unavailable Reason for Visit * Reason Comments Follow-up 4weeks Urinary Retention Encounter Details Date Type Department Care Team (Late st Contact Info) Description 10/24/2023 2:15 PM CDT Office Visit [facility] [address] [place] [id number] Ton Ling, RENTAL BOATS CARETAKER, BASKETBALLS AND FOOTBALLS REVERSER [address] [place] [address] 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 Patient declined 09/03/2023 Social Connection and Isolation Panel [NHANES] A nswer Date Recorded In a typical week, how many times do you talk on the phone with family, friends, or neighbors? Patient declined 09/03/2023 How often do you get togethe r with friends or relatives? Patient declined 09/03/2023 How often do you attend mormonism or confucianism serv ices? Patient declined 09/03/2023 Do you belong to any clubs o r organizations such as mormonism groups, unions, fraternal or athletic groups, or [...] Total Score - Questions 1-9 0 07/31 [facility] - Occupational [...] place to sleep or slept in a skilled nursing (including now)? Patient declined 09/03/2023 Sexually Active Control Partners Comments Never Sex and Gender Information Value Date Recorded Sex Assigned at Not on file Legal Sex Male 11:18 PM CDT Gender Identity Not on file Sexual Orientation Not on file documented as of this encounter Last Filed Vital Signs Vital Sign Reading Time Taken Comments Blood Pressure - - Pulse 75 10/24/2023 1:58 PM CDT Temperature 36.6 ??C (97.8 ??F) 10/24/2023 1:58 PM CD T Respiratory Rate 19 10/24/2023 1:58 PM CDT Oxygen Saturation 98% 10/24/2023 1:58 PM CDT Inhaled Oxygen Concentration - - Weight 87.1 kg (192 lb) 10/24/2023 1:58 PM CDT Height 182.9 cm (6') 10/24/2023 1:58 PM CDT Body Mass Index 26.04 10/24/2023 1:58 PM CDT documented in this encounter Progress Notes * Ton Ling, RENTAL BOATS CARETAKER, BASKETBALLS AND FOOTBALLS REVERSER - 10/24/2023 2:15 PM CDT UROLOGY [facility], [address] [place] [id number] PHONE: FAX: Assessment & Plan BPH- PVR remains low. Continue tamsulosin and finasteride. Elevated PSA- MRI completed 05/15/2023 that showed 157 cc gland. PSA density 0.06. PI-RADS 2. PSA likely elevated due to large prostate gland. Following PSA kinetics on Finasteride. due for repeat PSA in 3 months. Follow up in 3 months with PSA prior. Subjective: 04/24/2023 HPI: HPI: Iván Dumont presents to the office as a referral for an elevated PSA. See results below. : -PRIOR BIOPSY: Denies -FAMILY HISTORY OF PROSTATE CANCER: Denies -LOWER URINARY TRACT SYMPTOMS: Denies -ISSUES WITH ERECTILE DYSFUNCTION: Did not discuss -PRIOR ABDOMINAL OPERATIONS: Denies -COMPETING COMORBIDITIES (DM, HTN, CAD, Stroke, COPD, etc): HTN, thrombocytopenia, anemia, HLD, Schizophrenia -BLOOD THINNERS: Denies UA- negative for blood or infection PVR- 24cc PSA trend 04/24/2023-9.75 03/15/2023-9.18 03/01/2023-8.19 06/20/2023 HPI: HPI: Iván Dumont presents to the office for follow-up on an elevated PSA. Patient had prostateMRI completed that showed 157 cc gland. PSA density 0.06. PI-RADS 2. He is feeling well today without complaints. 08/15/2023 HPI: HPI: Iván Dumont presents to the office as a follow-up after he was hospitalized 07/28/2023 for shortness of breath. Patient was found to have RSV and was in AFib RVR. While he was admitted patient developed urinary retention was not able to void. Bladder scan obtained during the hospitalization showed 638 mL in his bladder. He is here today for a voiding trial. Patients bladder was filled with 250 cc of sterile water. Patient only able to void <100 cc. He overtly wants to avoid anothercatheter. 09/11/2023 HPI: HPI: Iván Dumont presents to the office for follow-up. Patient was admitted to [facility] on 09/02/2023 for altered mental status and hematuria. Patient had failed voiding trial after last visit and had to have catheter replaced. While he was in the emergency department patient is here was nitrite positive and was treated for an infection. He had a CT abdomen pelvis without contrastthat showed that Cedillo catheter was in prostatic urethra. Patient denied any trauma. Catheter was repositioned and hematuria quickly resolved with antibiotics. He continues tamsulosin twice daily andfinasteride 5 mg daily. Catheter draining clear yellow urine. 09/12/2023 HPI: HPI: Iván Dumont presents to the office today for a voiding trial. Patient's bladder was filled with 240 cc of sterile water. Patient was able to void 400 cc. Voiding trial successful. 09/19/2023 HPI: HPI: Iván Dumont presents to the office for 1 week follow-up after voiding trial last week. Patient reports that he has been voiding well and not having to push/strain to urinate. He denies any dysuria, gross hematuria, or other UTI symptoms. Unable to give a urine sample today, but blood random bladder scan showed 91 cc. 10/24/2023 HPI: HPI: Iván Dumont presents to the office for 4 week follow-up. Patient reports that he has beenvoiding well and denies any dysuria, gross hematuria, frequency, or urgency. He continues tamsulosin and finasteride. Finasteride started 05/2023. He is due for repeat PSA in about 3 months. UA-unable to void PVR-86 cc The following portions of the patient's chart were reviewed in this encounter and updated as appropriate: Tobacco Allergies Meds ROS: Review of Systems Constitutional: Negative for chills and fever. Respiratory: Negative for cough and shortness of breath. Cardiovascular: Negative for chest pain and palpitations. Gastrointestinal: Negative for abdominal pain, diarrhea, nausea and vomiting. Genitourinary: Negative for dysuria, frequency, hematuria and urgency. Musculoskeletal: Negative for myalgias. Neurological: Negative for dizziness and weakness. Objective: Vital signs: Pulse 75 Temp 97.8 ??F (36.6 ??C) (Temporal) Resp 19 Ht 6' (1.829 m) Wt 192 lb(87.1 kg) SpO2 98% BMI 26.04 kg/m?? Vitals: 10/24/23 1358 PainSc: 0 - No pain Physical Exam Constitutional: General: He is not in acute distress. Appearance: Normal appearance. He is not ill-appearing. HENT: Head: Normocephalic. Cardiovascular: Rate and Rhythm: Normal rate and regular rhythm. Pulmonary: Effort: Pulmonary effort is normal. No respiratory distress. Chest: Chest wall: No tenderness. Abdominal: General: Abdomen is flat. There is no distension. Palpations: Abdomen is soft. Tenderness: There is no abdominal tenderness. There is no guarding. Musculoskeletal: General: Normal range of motion. Cervical back: Neck supple. Skin: General: Skin is warm and dry. Capillary Refill: Capillary refill takes less than 2 seconds. Neurological: Mental Status: He is alert and oriented to person, place, and time. Lab Results Component Value Date WBC 8.31 09/22/2023 HEMOGLOBIN 10.7 (L) 09/22/2023 HEMATOCRIT 33.1 (L) 09/22/2023 PLATELETCNT 60 (L) 09/22/2023 MCV 88.3 09/22/2023 Lab Results Component Value Date SODIUM 138 09/05/2023 POTASSIUM 3.9 09/05/2023 CHLORIDE 109 (H) 09/05/2023 CO2VEN 20 (L) 09/05/2023 ANIONGAP 12.9 09/05/2023 GLUCOSE 98 09/05/2023 BUN 12 09/05/2023 CREATININE 0.75 09/05/2023 BCRATIO8 16 09/05/2023 TOTALPROTEIN 7.1 09/03/2023 ALBUMIN 4.0 09/03/2023 AGRATIO 1.3 03/15/2023 CALCIUM 8.5 (L) 09/05/2023 TBIL 0.5 09/03/2023 SGOTAST 13 09/03/2023 SGPTALT 14 09/03/2023 ALKALINEPHO 78 09/03/2023 GFRNA >60 09/05/2023 GFRA >60 09/05/2023 Lab Results Component Value Date PSASCREEN 9.18 (H) 03/15/2023 PSA 8.19 03/01/2023 PSATOTAL 9.75 (H) 04/24/2023 Results for orders placed or performed during the hospital encounter of 09/02/23 URINALYSIS REFLEX IF INDICATED BY ABNORMAL RESULTS Result Value Ref Range Status SPECIFIC GRAVITY 1.005 1.003 - 1.030 Final URINE PH 7.0 5.0 - 9.0 Final WBC ESTERASE 500 /uL (A) Negative Final NITRITE Positive (A) Negative Final PROTEIN, RANDOM URINE 500 mg/dL (A) Negative Final URINE GLUCOSE, QUAL Negative Negative Final URINE KETONES 5 mg/dL (A) Negative Final UROBILINOGEN Normal Normal mg/dL Final URINE BLOOD 250 /uL (A) Negative yoni/ul Final URINALYSIS COLOR Brown Final URINALYSIS CLARITY Bloody Final WBC (Urine) 51-150 (A) Negative, 0-5 /hpf Final URINE RBC'S Packed (A) Negative, 0-2 /hpf Final EPITHELIAL CELLS Negative /lpf Final BACTERIA, URINE Few (A) Negative /hpf Final Culture, Urine Specimen: Indwelling Catheter; Culture Result Value Ref Range Status CULTURE RESULTS Greater than 100,000 CFU/ML Pseudomonas aeruginosa Final Susceptibility Pseudomonas aeruginosa - [facility] IIB Cefepime Susceptible mcg/ml Gentamicin Resistant Levofloxacin Susceptible mcg/ml Meropenem Susceptible mcg/ml Piperacillin/Tazobactam Susceptible mcg/ml Tobramycin Susceptible mcg/ml No results found for: TESTOSTTTL No results found for this or any previous visit from the past 365 days. Iván Thornton was seen today for follow-up and urinary retention. Diagnoses and all orders for this visit: Benign prostatic hyperplasia with urinary obstruction - POCT UA AUTOMATED W/O MICRO - RAN,POST-VOID RES,US,NON-IMAGING Elevated PSA - PSA DIAGNOSTIC,TOTAL; Future By: Ton Ling APRN, CNP, 10/24/2023, 2:12 PM CDT Primary Care Physician: Irving Jeffries MD documented in this encounter Procedure Notes * Sourav Varela RMA - 10/24/2023 2:15 PM CDTAssociated Order(s): RAN,POST- VOID RES,US,NON-IMAGING POCT Bladder Scan collected per standing order of Ton Ling NP on 10/24/2023 PVR= 86 ML documented in this encounter Plan of Treatment Not on file documented as of this encounter Procedures Procedure Name Priority Date/Time Associated Diagnosis Comments RAN,POST-VOID RES,US,NON-IMAGING Routine 10/24/2023 2:15 PM CDT Benign prostatic hyperplasia with urinary obstruction documented in this encounter Results * RAN,POST-VOID RES,US,NON-IMAGING (10/24/2023 2:15 PM CDT) Narrative Sourav Varela RMA - 10/24/2023 2:15 PM CDT Sourav Varela RMEffie ? 10/24/2023 ??2:15 PM POCT Bladder Scan collected per standing order of Ton Ling CHILD PROTECTIVE SERVICES SPECIALIST on 10/24/2023 PVR= 86 ML us Ton Ling APRN, BASKETBALLS AND FOOTBALLS REVERSER [place] - SURGERY Final Result documented in this encounter Visit Diagnoses Diagnosis Benign prostatic hyperplasia with urinary obstruction- Primary Elevated PSA Elevated prostate specific antigen (PSA) documented in this encounter Additional Health Concerns Assessment Noted Time PHQ-9 Depression Total Score: 0 08/14/19 24 3:02 PM MANAGER RELIABILITY documented as of this encounter Care Teams Sampler Pickup Relationship Specialty Start Date End Date Irving Jeffries MD [address] [place] [address] PCP - General Internal Medicine 07/16/21 07/04/24 Ton Ling APRN, BASKETBALLS AND FOOTBALLS REVERSER [address] [place] [address] Nurse Practitioner Advanced Practice Nurse 04/24/23 Ame Scanlon APRN, BASKETBALLS AND FOOTBALLS REVERSER [address] [facility] [address] [place] [address] Nurse Practitioner Cardiology 08/23/23 Michael Ahmadi MD [address] [place] [address] Consulting Physician Medical Oncology 07/26/23 documented as of this encounter
--- OUTSIDE RECORDS SUMMARY | 2024-07-28 14:06 | XMS_ITS | Encounter Summary ---
Author Organization [facility] Address [address] [facility] [place] [address] Phone Care Team Providers Care Applied Researcher Name Role Phone Irving Jeffries MD Primary Care Provider [phone] Ton Ling SOCIAL MEDIA SPECIALIST, RRTS Unavailable [phone] Ame Scanlon SOCIAL MEDIA SPECIALIST, RRTS Unavailable + [phone] Michael Ahmadi MD Unavailable [phone] Reason for Visit * Auth/Cert (Routine) Specialty Diagnoses / Procedures Referred By Geeta t Referred To Contact Referral ID Status Reason Start Date Expiration Date Visits Re quested Visits Authorized [id number] 1 1 Encounter Details Date Type Department Care Team (Late st Contact Info) Description 09/28/2023 Home Care Visit [facility] [address] [place] [address] Bea Clark, RN [place] TELEPHONE ENCOUNTER Social History Tobacco Use Types Packs/Day Years [...] declined 09/03/2023 How often do you attend anabaptist or faith serv ices? Patient declined 09/03/2023 Do you belong to any clubs o r organizations such as anabaptist groups, unions, fraternal or athletic groups, or [...] Total Score - Questions 1-9 0 07/31 [facility] - Occupational Stress Questionnaire Answer Date Recorded [...] place to sleep or slept in a nursing home (including now)? Patient declined 09/03/2023 Sexually [...] Total Score: 0 08/14/19 24 3:02 PM INFRASTRUCTURE DESIGN ENGINEER documented as of this encounter Care Teams Applied Researcher Relationship Specialty Start Date End Date Irving Jeffries MD [address] [place] [address] PCP - General Internal Medicine 07/16/21 07/04/24 Ton Ling APRN, RRTS [address] [place] [address] Nurse Practitioner Advanced Practice Nurse 04/24/23 Ame Scanlon APRN, RRTS [address] [facility] [address] [place] [address] Nurse Practitioner Cardiology 08/23/23 Michael Ahmadi MD [address] [place] [address] Consulting Physician Medical Oncology 07/26/23 documented as of this encounter
--- OUTSIDE RECORDS SUMMARY | 2024-07-28 14:06 | XMS_ITS | Encounter Summary ---
Author Organization [facility] Address [address] [facility] [place] [address] Phone Care Team Providers Care Oral Therapist Name Role Phone Irving Jeffries MD Primary Care Provider Ton Ling HANDBAG DESIGNER, ACCOUNTING SOFTWARE SPECIALIST Unavailable [phone] Ame Scanlon HANDBAG DESIGNER, ACCOUNTING SOFTWARE SPECIALIST Unavailable Michael Ahmadi MD Unavailable Reason for Visit * Reason Onset Date Comments Medication Refill 11/07/2023 Encounter Details Date Type Department Care Team (Late st Contact Info) Description 11/07/2023 [facility] [address] [place] [phone] Michael Ahmadi MD [address] [place] [address] Medication Refill Social History Tobacco Use Types Packs/Day Years Used Date Smoking Tobacco: Former Cigarettes 2 20 Passive Smoke Exposure: Past Smokeless Tobacco: Never Alcohol Use Standard Drinks/Week Comments Not Currently 0 (1 standard drink = 0.6 oz pur e alcohol) [facility] Utilities Answer Date Recorded In the past 12 months has [employer], gas, oil, or water company threatened [...] declined 09/03/2023 How often do you attend yarsanism or anabaptist serv ices? Patient declined 09/03/2023 Do you belong to any clubs o r organizations such as yarsanism groups, unions, fraternal or athletic groups, or [...] Score - Questions 1-9 0 07/31 [facility] - Occupational Stress Questionnaire Answer [...] place to sleep or slept in a retirement (including now)? Patient declined 09/03/2023 Sexually Active Control Partners Comments Never Sex and Gender Information Value Date Recorded Sex Assigned at Not on file Legal Sex Male 11:18 PM CDT Gender Identity Not on file Sexual Orientation Not on file documented as of this encounter Miscellaneous Notes * Telephone Encounter - Dorothy King RN - 11/07/2023 12:08 PM CDT Okay to refill Omeprazole for Norberto Dumont? Last note does not state to continue; last refill was in 06/2023. I will send to institutional pharmacy with MD approval. Please advise. 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 documented as of this encounter Care Teams Oral Therapist Relationship Specialty Start Date End Date Irving Jeffries MD [address] [place] [address] PCP - General Internal Medicine 07/16/21 07/04/24 Ton Ling APRN, ACCOUNTING SOFTWARE SPECIALIST [address] [place] [address] Nurse Practitioner Advanced Practice Nurse 04/24/23 Ame Scanlon APRN, ACCOUNTING SOFTWARE SPECIALIST [address] [facility] [address] [place] [address] Nurse Practitioner Cardiology 08/23/23 Michael Ahmadi MD [address] [place] [address] Consulting Physician Medical Oncology 07/26/23 documented as of this encounter
--- OUTSIDE RECORDS SUMMARY | 2024-07-28 14:06 | XMS_ITS | Encounter Summary ---
Author Organization [facility] Address [address] [facility] [place] [address] Phone Care Team Providers Care Mother Repairer Name Role Phone Irving Jeffries MD Primary Care Provider Ton Ling CHIEF DEPUTY CORONER, ELECTROTYPER APPRENTICE Unavailable Ame Scanlon CHIEF DEPUTY CORONER, ELECTROTYPER APPRENTICE Unavailable + [phone] Michael Ahmadi MD Unavailable [phone] Reason for Visit * Reason Comments Follow-up Encounter Details Date Type Department Care Team (Latest Contact Info) Description 11/13/2023 9:20 AM CDT Office Visit [facility] Oncology Services [address] [place] [id number] Michael Ahmadi MD [address] [place] [address] Thrombocytopenia (HCC) (Primary Dx); Iron deficiency; Anemia, unspecified type; Iron deficiency anemia due [...] th e electric, gas, oil, or water [employer] threatened to shut off services in your home? Patient declined 09/03/2023 Social Connection and Isolation Panel [NHANES] A nswer Date Recorded In a typical week, how many times do you talk on the phone with family, friends, or neighbors? Patient declined 09/03/2023 How often do you get togethe r with friends or relatives? Patient declined 09/03/2023 How often do you attend mormon or church serv ices? Patient declined 09/03/2023 Do you belong to any clubs o r organizations such as mormon groups, unions, fraternal or athletic groups, or [...] Total Score - Questions 1-9 0 07/31 [facility] - Occupational [...] Sign Reading Time Taken Comments Blood Pressure 131/73 11/13/2023 9:24 AM CDT Pulse 71 11/13/2023 9:24 AM CDT Temperature 36.4 ??C (97.5 ??F) 11/13/2023 9:24 AM CD T Respiratory Rate 18 11/13/2023 9:24 AM CDT Oxygen Saturation 97% 11/13/2023 9:24 AM CDT Inhaled Oxygen Concentration - - Weight 87.1 kg (192 lb 1.6 oz) 11/13/2023 9:24 A M CDT Height 182.9 cm (6') 11/13/2023 9:24 AM CDT Body Mass Index 26.05 11/13/2023 9:24 AM CDT documented in this encounter Progress Notes * Mayra Duenas - 11/13/2023 9:20 AM CDT Outpatient Hem/Onc Progress Note Interval history: Iván Dumont is a 77 y.o. male seen today for follow up of severe thrombocytopenia. Patient requests to be called Norberto. Norberto is here today accompanied by friend living adjacent to facility for support. During last OV on 09/25/23 patient was started on Ferrous Sulfate 325 mg daily through facility p son[facility]. Norberto is unable to recall why he is not currently taking this intervention, as it is not listed on his medication list. He reports appetite remains stable with ability to tolerate wide varietyof foods. Norberto reports remaining active by walking in neighborhood and doing PT exercises. Norberto denies any current urinary retention, hematuria, or dysuria. Denies fevers, chills, cough, or other signsof infection. He was originally worked up for thrombocytopenia by my colleague Gilda IRAHETA. on review of hislabs in February of 2023 his platelet count was 79 K hemoglobin was 13.3 and normal white blood cell at 7.3. In March of 2023 platelet count dropped to 50 K. on 04/26/2023 platelet count was 33 K with hemoglobin 12.7 and normal WBC. On 05/10/2023 platelet count dropped to 18 K, hemoglobin 12.3. On 06/11/2023, platelet count noted to be 39 K. on 07/12/2023 platelet count dropped to 9 K. No bleeding or bruising reported. Norberto was started on Dexamethasone 20 mg BID for 4 days on 07/14/23 for PLT count of 9k on 07/12/23 for clinical suspicion of ITP. Norberto completed BMBX on 09/22/23 with normo-cellular marrow with absent iron stores. BMBX was delayed to hospital admission occurring after last OV.Norberto was admitted after last OV with sepsis related to UTI through 09/05/23. He was discharged with Barakat catheter in place. Norberto was evaluated by Ton Ling ELECTRICIAN MAINTENANCE on 09/11/23 with voiding trial fail ed this day. He returned on 09/12/23 with repeat voiding trial completed without residual. Patient again returned to urology on 09/19/23 with bladder scan showing 91 cc bladder in urine. Prior to this admission he was admitted to [facility] 07/28/23 through 08/07/23 for atrial fibrillation RVR state, RSV infection, and urinary retention. Barakat catheter was placed to improve urinary retention with Xarelto started for A.fib. He returned to [facility] on 08/09/23 for blood present in catheter; discharged with advice to hold Xarelto for 2 days to prevent recurrent bleeding. Patient was seen by Ton Gonzalez ELECTRICIAN MAINTENANCE on 08/15/23 with barakat removed, Tamsulosin increased to BID, and start Finasteride. He returned on 08/18/23 for gross hematuria and inability to urinate with barakat placed. Reviewed patients past medical, surgical, social, and family history. No outpatient medications have been marked as taking for the 11/13/23 encounter (Appointment) with Michael Ahmadi MD. Allergies as of 11/13/2023 (No Known Allergies) REVIEW OF SYSTEMS Review of Systems Unable to perform ROS: Mental acuity Genitourinary: Recent urinary retention, has Barakat catheter Physical Exam Physical Exam Vitals reviewed. Constitutional: Appearance: Normal appearance. HENT: Head: Normocephalic and atraumatic. Genitourinary: Comments: Barakat catheter in place Musculoskeletal: Right lower leg: No edema. Left lower leg: No edema. Neurological: Mental Status: He is alert. PAIN ASSESSMENT: no verbal complaints DATA: 11/08/23 LABS [facility]: CBC WBC 7.3 HGB 11.7 PLT 43 CMP K+ 4.2 Creatine 0.8 Ca+ 9.1 Alk Phos 88 AST 16 ALT 11 T.bili 0.3 IRON 63 TIBC 455 Sat 14% Ferritin 13 Lab Results Component Value Date WBC 8.31 09/22/2023 RBC 3.75 (L) 09/22/2023 HEMOGLOBIN 10.7 (L) 09/22/2023 HEMATOCRIT 33.1 (L) 09/22/2023 MCV 88.3 09/22/2023 MCH 28.5 09/22/2023 MCHC 32.3 09/22/2023 PLATELETCNT 60 (L) 09/22/2023 RDW 15.0 09/22/2023 LYMPHOCYTES 11.4 (L) 09/05/2023 RELEOS 0.0 09/05/2023 RELBAS 0.3 09/05/2023 ANC 9.68 (H) 09/05/2023 MONOCYTES 1.28 (H) 09/05/2023 EOSINOPHILS 0.00 09/05/2023 BASOPHILS 0.04 09/05/2023 Lab Results Component Value Date SODIUM 138 09/05/2023 POTASSIUM 3.9 09/05/2023 CHLORIDE 109 (H) 09/05/2023 ANIONGAP 12.9 09/05/2023 GLUCOSE 98 09/05/2023 BUN 12 09/05/2023 CREATININE 0.75 09/05/2023 TOTALPROTEIN 7.1 09/03/2023 ALBUMIN 4.0 09/03/2023 CALCIUM 8.5 (L) 09/05/2023 SGPTALT 14 09/03/2023 ALKALINEPHO 78 09/03/2023 07/26/23 CBC OSH: WBC 13.8 HGB 11.9 [...] 04/24/2023 Lab Results Component Value Date IRON 104 04/24/2023 TIBC 354 04/24/2023 IRONSATURATI 29 04/24/2023 FERRITIN 23 04/24/2023 [id number] 486 03/15/2023 DIAGNOSTIC IMAGING STUDIES: 07/29/23 CT ANGIO CHEST: [...] cysts. Hepatic steatosis Assessment: 1. Thrombocytopenia , severe, worsening. -- Did respond transiently to oral steroids 2. Anemia, normocytic, mild 3. Chronic undifferentiated schizophrenia 4. Elevated PSA, MRI pelvis negative for malignant changes likely related to BPH 5. Urinary retention, barakat catheter in place Plan: 2. Schedule patient for 2x Injectafer 750 mg infusions to improve iron levels without question if patient is taking supplement or having GI distress related to intervention. Patient is agreeable to this intervention and caregiver recites ability to transport Norberto to infusion appointments. Reviewed common side effects of Injectafer including pain at infusion site, headache, etc. 3. Obtain CBC every 8 weeks to monitor levels for need for intervention. Patient will complete these labs at facility. 4. HOLD ALL ANTICOAGULANTS to prevent recurrent [...] after recent hospital admission. Follow up in 8 weeks with labs prior Labs: CBC, CMP, Iron studies, and ferritin The patient was given an opportunity to ask questions, and all questions answered to patient's satisfaction. Patient verbalizes understanding of the plan as outlined above. The documentation for this visit was completed by Mayra Duenas acting as a scribe for Michael Valdovinos MD. 11/13/2023, 8:38 AM CDT * Michael Ahmadi MD - 11/13/2023 9:20 AM CDT Outpatient Hem/Onc Progress Note Interval history: Iván Dumont is a 77 y.o. male seen today for follow up of severe thrombocytopenia. Patient requests to be called Norberto. Norberto is here today accompanied by friend living adjacent to facility for support. During last OV on 09/25/23 patient was started on Ferrous Sulfate 325 mg daily through facility [facility]. Norberto is unable to recall why he is not currently taking this intervention, as it is not listed on his medication list. He reports appetite remains stable with ability to tolerate wide varietyof foods. Norberto reports remaining active by walking in neighborhood and doing PT exercises. Norberto denies any current urinary retention, hematuria, or dysuria. Denies fevers, chills, cough, or other signsof infection. He was originally worked up for thrombocytopenia by my colleague Gilda IRAHETA. on review of hislabs in February of 2023 his platelet count was 79 K hemoglobin was 13.3 and normal white blood cell at 7.3. In March of 2023 platelet count dropped to 50 K. on 04/26/2023 platelet count was 33 K with hemoglobin 12.7 and normal WBC. On 05/10/2023 platelet count dropped to 18 K, hemoglobin 12.3. On 06/11/2023, platelet count noted to be 39 K. on 07/12/2023 platelet count dropped to 9 K. No bleeding or bruising reported. Norberto was started on Dexamethasone 20 mg BID for 4 days on 07/14/23 for PLT count of 9k on 07/12/23 for clinical suspicion of ITP. Norberto completed BMBX on 09/22/23 with normo-cellular marrow with absent iron stores. BMBX was delayed to hospital admission occurring after last OV.Norberto was admitted after last OV with sepsis related to UTI through 09/05/23. He was discharged with Barakat catheter in place. Norberto was evaluated by Ton Ling ELECTRICIAN MAINTENANCE on 09/11/23 with voiding trial fail ed this day. He returned on 09/12/23 with repeat voiding trial completed without residual. Patient again returned to urology on 09/19/23 with bladder scan showing 91 cc bladder in urine. Prior to this admission he was admitted to [facility] 07/28/23 through 08/07/23 for atrial fibrillation RVR state, RSV infection, and urinary retention. Barakat catheter was placed to improve urinary retention with Xarelto started for A.fib. He returned to [facility] on 08/09/23 for blood present in catheter; discharged with advice to hold Xarelto for 2 days to prevent recurrent bleeding. Patient was seen by Ton Gonzalez ELECTRICIAN MAINTENANCE on 08/15/23 with barakat removed, Tamsulosin increased to BID, and start Finasteride. He returned on 08/18/23 for gross hematuria and inability to urinate with barakat placed. Reviewed patients past medical, surgical, social, and family history. Outpatient Medications Marked as Taking for the 11/13/23 encounter (Office Visit) with Michael Ahmadi MD [...] (FLOMAX) 0.4 MG Capsule Allergies as of 11/13/2023 (No Known Allergies) REVIEW OF SYSTEMS Review of Systems Unable to perform ROS: Mental acuity Genitourinary: Recent urinary retention, has Barakat catheter Physical Exam Physical Exam Vitals reviewed. Constitutional: Appearance: Normal appearance. HENT: Head: Normocephalic and atraumatic. Genitourinary: Comments: Barakat catheter in place Musculoskeletal: Right lower leg: No edema. Left lower leg: No edema. Neurological: Mental Status: He is alert. PAIN ASSESSMENT: no verbal complaints DATA: 11/08/23 LABS [facility]: CBC WBC 7.3 HGB 11.7 PLT 43 CMP K+ 4.2 Creatine 0.8 Ca+ 9.1 Alk Phos 88 AST 16 ALT 11 T.bili 0.3 IRON 63 TIBC 455 Sat 14% Ferritin 13 Lab Results Component Value Date WBC 8.31 09/22/2023 RBC 3.75 (L) 09/22/2023 HEMOGLOBIN 10.7 (L) 09/22/2023 HEMATOCRIT 33.1 (L) 09/22/2023 MCV 88.3 09/22/2023 MCH 28.5 09/22/2023 MCHC 32.3 09/22/2023 PLATELETCNT 60 (L) 09/22/2023 RDW 15.0 09/22/2023 LYMPHOCYTES 11.4 (L) 09/05/2023 RELEOS 0.0 09/05/2023 RELBAS 0.3 09/05/2023 ANC 9.68 (H) 09/05/2023 MONOCYTES 1.28 (H) 09/05/2023 EOSINOPHILS 0.00 09/05/2023 BASOPHILS 0.04 09/05/2023 Lab Results Component Value Date SODIUM 138 09/05/2023 POTASSIUM 3.9 09/05/2023 CHLORIDE 109 (H) 09/05/2023 ANIONGAP 12.9 09/05/2023 GLUCOSE 98 09/05/2023 BUN 12 09/05/2023 CREATININE 0.75 09/05/2023 TOTALPROTEIN 7.1 09/03/2023 ALBUMIN 4.0 09/03/2023 CALCIUM 8.5 (L) 09/05/2023 SGPTALT 14 09/03/2023 ALKALINEPHO 78 09/03/2023 07/26/23 CBC OSH: WBC 13.8 HGB 11.9 [...] 04/24/2023 Lab Results Component Value Date IRON 104 04/24/2023 TIBC 354 04/24/2023 IRONSATURATI 29 04/24/2023 FERRITIN 23 04/24/2023 [id number] 486 03/15/2023 DIAGNOSTIC IMAGING STUDIES: 07/29/23 CT ANGIO CHEST: [...] cysts. Hepatic steatosis Assessment: 1. Thrombocytopenia , severe, worsening. -- Did respond transiently to oral steroids 2. Anemia, normocytic, mild 3. Chronic undifferentiated schizophrenia 4. Elevated PSA, MRI pelvis negative for malignant changes likely related to BPH 5. Urinary retention, barakat catheter in place Plan: 1. Reviewed patient's recent clinical symptoms, bone marrow biopsy and lab results. Bone marrow biopsy did not show any evidence bone marrow disorder however did show absent iron stores. Patient has not been taking oral iron, concern that there might be tolerance issue. Will schedule patient for int ravenous iron Injectafer 750 mg x 2 infusions to improving iron stores and anemia. As far his platelet count goes this is over 30 K and there is no symptoms related to bleeding or bruising so we willcontinue to monitor. If platelet count becomes less than 30, then we will have to start him on medic ations for ITP likely retrial of steroids or Promacta 2. Schedule patient for 2x Injectafer 750 mg infusions to improve iron levels without question if patient is taking supplement or having GI distress related to intervention. Patient is agreeable to this intervention and caregiver recites ability to transport Norberto to infusion appointments. Reviewed common side effects of Injectafer including pain at infusion site, headache, etc. 3. Obtain CBC every 8 weeks to monitor levels for need for intervention. Patient will complete these labs at facility. 4. HOLD ALL ANTICOAGULANTS to prevent recurrent [...] after recent hospital admission. Follow up in 8 weeks with labs prior Labs: CBC, CMP, Iron studies, and ferritin The patient was given an opportunity to ask questions, and all questions answered to patient's satisfaction. Patient verbalizes understanding of the plan as outlined above. The documentation for this visit was completed by Mayra Duenas acting as a scribe for Michael Valdovinos MD. 11/13/2023, 9:47 AM CDT The documentation recorded by the scribe was completed while in the exam room with me and the patient. The documentation accurately reflects the service I personally performed and the decisions made by me. I have confirmed and edited the documentation as necessary. Michael Ahmadi MD 11/13/2023, 9:47 AM CDT documented in this encounter Miscellaneous Notes * Interdisciplinary - Colleen Cherry - 11/13/2023 9:20 AM CDT The patient has no complaints during today's visit. Pain score is 0. Medications reviewed. * Interdisciplinary - Colleen Cherry - 11/13/2023 9:20 AM CDT AVS printed. Patient escorted to the front office to schedule infusions. Labs to be completed priorto follow up. Orders sent with caregiver to facility. documented in this encounter Plan of Treatment Not on file documented as of this encounter Results * IRON,TRANSFERN,CALC.TIBC,%SAT (01/12/2024 11:38 AM CDT) IRON 65 31 - 144 mcg/dL 01/12/2024 2:27 PM CDT [facility] TRANSFERRIN 216 163 - 344 mg/dL 01/12/2024 2:27 PM CDT [facility] TIBC, CALCULATED 270 261 - 462 mcg/dL 01/12/2024 2:27 PM CDT [facility] % SATURATION * 24 15 - 62 % 01/12/2024 2:27 PM CDT [facility] Blood Venipuncture / Unknown 01/12/2024 11:38 AM CDT 01/12/2024 11:38 AM CDT Michael Ahmadi MD CHEMISTRY ORDERABLES Fin al Result Performing Organization Address City/Va Hospital/ZIP Co de Phone Number [facility] [place] [address] * (ABNORMAL) FERRITIN (01/12/2024 11:38 AM CDT) FERRITIN 334(H) 22 - 274 ng/mL 01/12/2024 2:42 PM CDT [facility] Blood Venipuncture / Unknown 01/12/2024 11:38 AM CDT 01/12/2024 11:38 AM CDT Michael Ahmadi MD CHEMISTRY ORDERABLES Fin al Result Performing Organization Address City/Va Hospital/ZIP Co de Phone Number [facility] [place] [address] * (ABNORMAL) CMP (COMPREHENSIVE METABOLIC PANEL) (01/12/2024 11:38 AM CDT) SODIUM 139 136 - 145 mmol/L 01/12/2024 2:27 PM CDT [facility] POTASSIUM 4.1 3.5 - 5.1 mmol/L 01/12/2024 2:27 PM CDT [facility] CHLORIDE 108(H) 98 - 107 mmol/L 01/12/2024 2:27 PM CDT [facility] CO2, VENOUS 20(L) 22 - 30 mmol/L 01/12/2024 2:27 PM CDT [facility] ANION GAP 15.1 <18.0 mmol/L 01/12/2024 2:27 PM CDT [facility] GLUCOSE 132(H) 70 - 99 mg/dL 01/12/2024 2:27 PM CDT [facility] BUN 14 8 - 26 mg/dL 01/12/2024 2:27 PM CDT [facility] CREATININE, BLOOD 0.95 0.70 - 1.30 mg/dL 01/12/2024 2:27 PM CDT [facility] BUN/CREATININE RATIO 15 12 - 20 ratio 01/12/2024 2:27 PM CDT [facility] TOTAL PROTEIN 6.9 6.3 - 8.2 g/dL 01/12/2024 2:27 PM CDT [facility] ALBUMIN 4.1 3.5 - 5.0 g/dL 01/12/2024 2:27 PM CDT [facility] A/G RATIO 1.5 1.0 - 2.2 01/12/2024 2:27 PM CDT [facility] CALCIUM 9.3 8.7 - 10.5 mg/dL 01/12/2024 2:27 PM CDT [facility] T BILI 0.3 0.2 - 1.2 mg/dL 01/12/2024 2:27 PM T [facility] SGOT (AST) 13 5 - 34 U/L 01/12/2024 2:27 PM T [facility] SGPT (ALT) 14 0 - 55 U/L 01/12/2024 2:27 PM CDT [facility] ALKALINE PHOSPHATASE 86 40 - 150 U/L 01/12/2024 2:27 PM T [facility] IS THE PATIENT REQUIRED TO BE FASTING? No 01/12/2024 2:27 PM CDT [facility] GFR, ESTIMATED >60 >=60 01/12/2024 2:27 PM CDT [facility] Comment: Creatinine Clearance is the preferred criteria for selecting drug dose adjustments in renally impaired patients. ??The GFR is provided as additional pertinent clinical information. GFR is reported in mL/min/1.73 sq m. Calculation based on the Chronic Kidney Disease Epidemiology Collaboration (CKD- EPI) equation refit without adjustment for race. GFR, EST. >60 >=60 024 2:[address] PM [address] [facility] GFR, EST. NONAFRICAN >60 >=60 01/12/2024 2:27 PM [address] [facility] Blood Venipuncture / Unknown 01/12/2024 11:38 AM CDT 01/12/2024 11:38 AM CDT Michael Ahmadi MD CHEMISTRY ORDERABLES Fin al Result [facility] [place] [address] documented in this encounter Visit Diagnoses Diagnosis Thrombocytopenia (HCC)- Primary Thrombocytopenia, unspecified Iron deficiency Other disorders of iron metabolism Anemia, unspecified type Iron deficiency anemia due to sideropenic dysphagia documented in this encounter Additional Health Concerns Assessment Noted Time PHQ-9 Depression Total Score: 0 08/14/19 24 3:02 PM INSTRUMENT CHECKER documented as of this encounter Care Teams Mother Repairer Relationship Specialty Start Date End Date Irving Jeffries MD [address] [place] [address] PCP - General Internal Medicine 07/16/21 07/04/24 Ton Ling APRN, ELECTROTYPER APPRENTICE [address] [place] [address] Nurse Practitioner Advanced Practice Nurse 04/24/23 Ame Scanlon APRN, ELECTROTYPER APPRENTICE [address] [address] Nurse Practitioner Cardiology 08/23/23 Michael Ahmadi MD [address] [place] [address] Consulting Physician Medical Oncology 07/26/23 documented as of this encounter
--- OUTSIDE RECORDS SUMMARY | 2024-07-28 14:06 | XMS_ITS | Encounter Summary ---
Author Organization [employer] Care Team Providers Care Oil Lease Broker Name Role Phone Irving Jeffries MD Primary Care Provider [phone] Ton Ling APRN, BIOMASS PLANT TECHNICIAN Unavailable [phone] Ame Scanlon APRN, BIOMASS PLANT TECHNICIAN Unavailable [phone] Michael Ahmadi MD Unavailable [phone] Encounter Details Date Type Department Care Team (Latest Contact Info) Description 10/03/2023 Travel Social History Tobacco Use Types Packs/Day Years Used Date Smoking Tobacco: Former Cigarettes 2 20 Passive Smoke Exposure: Past Smokeless Tobacco: Never Alcohol Use Standard Drinks/Week Comments Not Currently 0 (1 standard drink = 0.6 oz pur e alcohol) [facility] Utilities Answer Date Recorded In the past 12 months has Flit, gas, oil, or water [employer] threatened to shut off services in your home? Patient declined 09/03/2023 Social Connection and Isolation Panel [NHANES] A nswer Date Recorded In a typical week, how many times do you talk on the phone with family, friends, or neighbors? Patient declined 09/03/2023 How often do you get togethe r with friends or relatives? Patient declined 09/03/2023 How often do you attend uatsdin or restorationist serv ices? Patient declined 09/03/2023 Do you belong to any clubs o r organizations such as uatsdin groups, unions, fraternal or athletic groups, or [...] Total Score - Questions 1-9 0 07/31 [employer] [facility] - Occupational Stress Questionnaire Answer Date [...] Depression Total Score: 0 08/14/19 3:02 PM WATER RESTORATION TECHNICIAN documented as of this encounter Care Teams Oil Lease Broker Relationship Specialty Start Date End Date Irving Jeffries MD [address] [place] [address] PCP - General Internal Medicine 07/16/21 07/04/24 Ton Ling APRN, BIOMASS PLANT TECHNICIAN [address] [place] [address] Nurse Practitioner Advanced Practice Nurse 04/24/23 Ame Scanlon APRN, BIOMASS PLANT TECHNICIAN [address] [facility] [place] [address] Nurse Practitioner Cardiology 08/23/23 Michael Ahmadi MD [address] [place] [address] Consulting Physician Medical Oncology 07/26/23 documented as of this encounter
--- OUTSIDE RECORDS SUMMARY | 2024-07-28 14:06 | XMS_ITS | Encounter Summary ---
Author Organization [facility] Address [address] [facility] [place] [address] Phone Care Team Providers Care Dental Equipment Repairer Name Role Phone Irving Jeffries MD Primary Care Provider Ton Ling CIRCUITRY NEGATIVE INSPECTOR, CUTTER BANANA ROOM Unavailable Ame Scanlon CIRCUITRY NEGATIVE INSPECTOR, CUTTER BANANA ROOM Unavailable Michael Ahmadi MD Unavailable [phone] Encounter Details Date Type Department Care Team (Late st Contact Info) Description 09/29/2023 Telephone [facility] Oncology Services [address] [place] [address] Michael Ahmadi MD [address] [place] [address] Social History Tobacco Use Types Packs/Day Years Used Date Smoking Tobacco: Former Cigarettes 2 20 Passive Smoke Exposure: Past Smokeless Tobacco: Never Alcohol Use Standard Drinks/Week Comments Not Currently 0 (1 standard drink = 0.6 oz pur e alcohol) [facility] Utilities Answer Date Recorded [...] declined 09/03/2023 How often do you attend adventism or jewish serv ices? Patient declined 09/03/2023 Do you belong to any clubs o r organizations such as adventism groups, unions, fraternal or athletic groups, or [...] Total Score - Questions 1-9 0 07/31 [facility] - Occupational Stress Questionnaire Answer [...] place to sleep or slept in a residential (including now)? Patient declined 09/03/2023 Sexually Active Control Partners Comments Never Sex and Gender Information Value Date Recorded Sex Assigned at Not on file Legal Sex Male 11:18 PM CDT Gender Identity Not on file Sexual Orientation Not on file documented as of this encounter Miscellaneous Notes * Telephone Encounter - Mayra Duenas - 09/29/2023 1:[address] Ahmadi let patient/residential nurse know that BMBX resulted as normal showing low iron levels.Will continue current plan of Ferrous Sulfate 325 mg daily. Contacted [facility] to adviseof this result. After confirming patient's information with Lenora WERNER advised BMBX result normal only showing low iron stores. Continue Iron once daily on empty stomach. She verbalized understanding and requests this note for his records. Will fax results and this note to [facility] at [phone] ILLING DEPARTMENT SUPERVISOR documented in this encounter Plan of Treatment Not on file documented as of this encounter Visit Diagnoses Not on filedocumented in this encounter Additional Health Concerns Assessment Noted Time PHQ-9 Depression Total Score: 0 08/14/19 24 3:02 PM DISTILLING DEPARTMENT SUPERVISOR documented as of this encounter Care Teams Dental Equipment Repairer Relationship Specialty Start Date End Date [place] [address] PCP - General Internal Medicine 07/16/21 07/04/24 Ton Ling APRN, CUTTER BANANA ROOM [address] [place] [address] Nurse Practitioner Advanced Practice Nurse 04/24/23 Ame Scanlon APRN, CUTTER BANANA ROOM #2 [facility] [address] [place] [address] Nurse Practitioner Cardiology 08/23/23 Michael Ahmadi MD [address] [place] [address] Consulting Physician Medical Oncology 07/26/23 documented as of this encounter
--- OUTSIDE RECORDS SUMMARY | 2024-07-28 14:06 | XMS_ITS | Encounter Summary ---
Author Organization [facility] Address [address] [place] [address] Phone Care Team Providers Care Dietary Services Director Name Role Phone Irving Jeffries MD Primary Care Provider Ton Ling VENDOR REPRESENTATIVES, GROCERY CARRIER Unavailable Ame Scanlon VENDOR REPRESENTATIVES, GROCERY CARRIER Unavailable Michael Ahmadi MD Unavailable Encounter Details Date Type Department Care Team (Late st Contact Info) Description 12/14/2023 Telephone [facility] - Internal Medicine - [place] [place] [address] Irving Jeffries MD [address] [place] [address] Social History Tobacco Use Types Packs/Day Years Used Date Smoking Tobacco: Former Cigarettes 2 20 Passive Smoke Exposure: Past Smokeless Tobacco: Never Alcohol Use Standard Drinks/Week Comments Not Currently 0 (1 standard drink = 0.6 oz pur e alcohol) [facility] Utilities Answer Date Recorded In the [...] declined 09/03/2023 How often do you attend amish or shinto serv ices? Patient declined 09/03/2023 Do you belong to any clubs o r organizations such as amish groups, unions, fraternal or athletic groups, or [...] 0 07/31 [facility] - Occupational Stress Questionnaire Answer Date [...] Telephone Encounter - Quynh Duncan RN - 12/15/2023 9:18 AM CDT Faxed to [facility] * Telephone Encounter - Irving Jeffries MD - 12/14/2023 10:59 AM CDT May stop Miralax, Senna and Reguloid powder. * Telephone Encounter - Quynh Duncna RN - 12/14/2023 10:15 AM CDT Pt has been having diarrhea and they would like to know what medications they should cut out at this time until diarrhea subsides ? documented in this encounter Plan of Treatment Not on file documented as of this encounter Visit Diagnoses Not on filedocumented in this encounter Additional Health Concerns Assessment Noted Time PHQ-9 Depression Total Score: 0 08/14/19 24 3:02 PM SANDWICH COUNTER ATTENDANT documented as of this encounter Care Teams Dietary Services Director Relationship Specialty Start Date End Date Irving Jeffries MD [address] [place] [address] PCP - General Internal Medicine 07/16/21 07/04/24 Ton Ling APRN, GROCERY CARRIER [address] [place] [address] Nurse Practitioner Advanced Practice Nurse 04/24/23 Ame Scanlon APRN, GROCERY CARRIER #2 [facility] [address] [place] [address] Nurse Practitioner Cardiology 08/23/23 Micheal Ahmadi MD [address] [place] [address] Consulting Physician Medical Oncology 07/26/23 documented as of this encounter
--- OUTSIDE RECORDS SUMMARY | 2024-07-28 14:06 | XMS_ITS | Encounter Summary ---
Author Organization [employer] Care Team Providers Care Stoneworking Belt Sander Name Role Phone Irving Jeffries MD Primary Care Provider [phone] Ton Ling APRN, MEDICAL ACCOUNTS RECEIVABLE SPECIALIST Unavailable [phone] Ame Scanlon APRN, MEDICAL ACCOUNTS RECEIVABLE SPECIALIST Unavailable + [phone] Michael Ahmadi MD Unavailable [phone] Encounter Details Date Type Department Care Team (Latest Contact Info) Description 12/19/2023 Travel Social History Tobacco Use Types Packs/Day Years Used Date Smoking Tobacco: Former Cigarettes 2 20 Passive Smoke Exposure: Past Smokeless Tobacco: Never Alcohol Use Standard Drinks/Week Comments Not Currently 0 (1 standard drink = 0.6 oz pur e alcohol) [facility] Utilities Answer Date Recorded In the past 12 months has [employer], gas, oil, or water [employer] threatened to shut off services in your home? Patient declined 09/03/2023 Social Connection and Isolation Panel [NHANES] A nswer Date Recorded In a typical week, how many times do you talk on the phone with family, friends, or neighbors? Patient declined 09/03/2023 How often do you get togethe r with friends or relatives? Patient declined 09/03/2023 How often do you attend episcopal or yazidism serv ices? Patient declined 09/03/2023 Do you belong to any clubs o r organizations such as episcopal groups, unions, fraternal or athletic groups, or [...] [facility] ional [facility] [...] place to sleep or slept in a fdc (including now)? Patient declined 09/03/2023 Sexually Active [...] Total Score: 0 08/14/19 3:02 PM WATER PROOFER documented as of this encounter Care Teams Stoneworking Belt Sander Relationship Specialty Start Date End Date Irving Jeffries MD [address] [place] [address] PCP - General Internal Medicine 07/16/21 07/04/24 Ton Ling APRN, MEDICAL ACCOUNTS RECEIVABLE SPECIALIST [address] [place] [address] Nurse Practitioner Advanced Practice Nurse 04/24/23 Ame Scanlon APRN, MEDICAL ACCOUNTS RECEIVABLE SPECIALIST #2 [facility], [address] [place] [address] Nurse Practitioner Cardiology 08/23/23 Michael Ahmadi MD [address] [place] [address] Consulting Physician Medical Oncology 07/26/23 documented as of this encounter
--- OUTSIDE RECORDS SUMMARY | 2024-07-28 14:06 | XMS_ITS | Encounter Summary ---
Author Organization [employer] Care Team Providers Care It Applications Analyst Name Role Phone Irving Jeffries MD Primary Care Provider [phone] Ton Ling APRN, ESTIMATOR AND DRAFTER Unavailable [phone] Ame Scanlon APRN, ESTIMATOR AND DRAFTER Unavailable + [phone] Michael Ahmadi MD Unavailable [phone] Encounter Details Date Type Department Care Team (Latest Contact Info) Description 10/24/2023 Travel Social History Tobacco Use Types Packs/Day Years Used Date Smoking Tobacco: Former Cigarettes 2 20 Passive Smoke Exposure: Past Smokeless Tobacco: Never Alcohol Use Standard Drinks/Week Comments Not Currently 0 (1 standard drink = 0.6 oz pur e alcohol) [facility] Utilities Answer Date Recorded In the past 12 months has [employer], gas, oil, or water [employer] threatened to shut off services in your home? Patient declined 09/03/2023 Social Connection and Isolation Panel [NHANES] A nswer Date Recorded In a typical week, how many times do you talk on the phone with family, friends, or neighbors? Patient declined 09/03/2023 How often do you get togethe r with friends or relatives? Patient declined 09/03/2023 How often do you attend religious or adventist serv ices? Patient declined 09/03/2023 Do you belong to any clubs o r organizations such as religious groups, unions, fraternal or athletic groups, or [...] Total Score - Questions 1-9 0 07/31 [facility] - Occupational Stress Questionnaire Answer [...] Depression Total Score: 0 08/14/19 3:02 PM ADJUNCT LECTURER documented as of this encounter Care Teams It Applications Analyst Relationship Specialty Start Date End Date Irving Jeffries MD [address] [place] [address] PCP - General Internal Medicine 07/16/21 07/04/24 Ton Ling APRN, ESTIMATOR AND DRAFTER [address] [place] [address] Nurse Practitioner Advanced Practice Nurse 04/24/23 Ame Scanlon APRN, ESTIMATOR AND DRAFTER #2 [facility], [address] [place] [address] Nurse Practitioner Cardiology 08/23/23 Michael Ahmadi MD [address] [place] [address] Consulting Physician Medical Oncology 07/26/23 documented as of this encounter
--- OUTSIDE RECORDS SUMMARY | 2024-07-28 14:06 | XMS_ITS | Encounter Summary ---
Author Organization [facility] Address [address] [place] [address] Phone Care Team Providers Care Director Digital Marketing Name Role Phone Irving Jeffries MD Primary Care Provider [phone] Ton Ling JOINER, TROUBLE TRACER Unavailable [phone] Ame Scanlon JOINER, TROUBLE TRACER Unavailable + [phone] Michael Ahmadi MD Unavailable Reason for Visit * Reason Comments Follow-up Encounter Details Date Type Department Care Team (Late st Contact Info) Description 12/19/2023 9:30 AM CDT Office Visit [facility] UROLOGY [address] [place] [address] Ton Ling, JOINER, TROUBLE TRACER [address] [place] [address] 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 Utilities Answer Date Recorded In the past 12 months has th e electric, gas, oil, or water [employer] threatened to shut off services in your home? Patient declined 09/03/2023 Social Connection and Isolation Panel [NHANES] A nswer Date Recorded In a typical week, how many times do you talk on the phone with family, friends, or neighbors? Patient declined 09/03/2023 How often do you get togethe r with friends or relatives? Patient declined 09/03/2023 How often do you attend faith or shinto serv ices? Patient declined 09/03/2023 Do you belong to any clubs o r organizations such as faith groups, unions, fraternal or athletic groups, or [...] Total Score - Questions 1-9 0 07/31 [facility] - Occupational Stress [...] Sign Reading Time Taken Comments Blood Pressure 145/70 12/19/2023 9:21 AM CDT Pulse 89 12/19/2023 9:21 AM CDT Temperature - - Respiratory Rate 20 12/19/2023 9:21 AM CDT Oxygen Saturation 99% 12/19/2023 9:21 AM CDT Inhaled Oxygen Concentration - - Weight 87.1 kg (192 lb) 12/19/2023 9:21 AM CDT Height 182.9 cm (6') 12/19/2023 9:21 AM CDT Body Mass Index 26.04 12/19/2023 9:21 AM CDT documented in this encounter Progress Notes * Ton Ling, JOINER, TROUBLE TRACER - 12/19/2023 9:30 AM CDT UROLOGY [facility] [address] [facility], [address] [place] [address] PHONE: FAX: Assessment & Plan BPH- PVR remains low. Continue tamsulosin and finasteride. Elevated PSA- MRI completed 05/15/2023 that showed 157 cc gland. PSA density 0.06. PI-RADS 2. PSA likely elevated due to large prostate gland. Following PSA kinetics on Finasteride. due for repeat PSA. I will call with results. Discussed we expect PSA to be trending down. If stable plan to repeat again in 6 months. Subjective: 04/24/2023 HPI: HPI: Iván Dumont presents [...] office for follow-up. Patient was admitted to [facility] on 09/02/2023 for altered mental status and [...] with antibiotics. He continues tamsulosin twice daily and finasteride 5 mg daily. Catheter draining clear yellow [...] 3 months. UA-unable to void PVR-86 cc 12/19/2023 HPI: HPI: Iván Dumont presents to the office for follow-up. He continues tamsulosin and finasterideand has been voiding well. Denies any dysuria, hematuria, pushing/straining to urinate, intermittency, urgency, or frequency. He is due for repeat PSA. Ua- negative for blood or infection PVR- 10cc The following portions of the patient's chart were reviewed in this encounter and updated as appropriate: ROS: Review of Systems Constitutional: Negative for chills and fever. Respiratory: Negative for cough and shortness of breath. Cardiovascular: Negative for chest pain and palpitations. Gastrointestinal: Negative for abdominal pain, diarrhea, nausea and vomiting. Genitourinary: Negative for dysuria, frequency, hematuria and urgency. Musculoskeletal: Negative for myalgias. Neurological: Negative for dizziness and weakness. Objective: Vital signs: There were no vitals taken for this visit. There were no vitals filed for this visit. Physical Exam Constitutional: General: He is not in acute distress. HENT: Head: Normocephalic. Cardiovascular: Rate and Rhythm: Normal rate. Pulmonary: Effort: Pulmonary effort is normal. No respiratory distress. Abdominal: General: Abdomen is flat. There is no distension. Palpations: Abdomen is soft. Tenderness: There is no abdominal tenderness. There is no guarding. Musculoskeletal: Cervical back: Neck supple. Neurological: Mental Status: He is alert and [...] Final URINE BLOOD 250 /uL (A) Negative kris/ul Final URINALYSIS COLOR Brown Final URINALYSIS CLARITY Bloody Final WBC (Urine) 51-150 (A) Negative, 0-5 /hpf Final URINE RBC'S Packed (A) Negative, 0-2 /hpf Final EPITHELIAL CELLS Negative /lpf Final BACTERIA, URINE Few (A) Negative /hpf Final Culture, Urine Specimen: Indwelling Catheter; Culture Result Value Ref Range Status CULTURE RESULTS Greater than 100,000 CFU/ML Pseudomonas aeruginosa Final Susceptibility Pseudomonas aeruginosa - [facility] IIB Cefepime Susceptible mcg/ml Gentamicin Resistant Levofloxacin Susceptible mcg/ml Meropenem Susceptible mcg/ml Piperacillin/Tazobactam Susceptible mcg/ml Tobramycin Susceptible mcg/ml No results found for: TESTOSTTTL No results found for this or any previous visit from the past 365 days. There are no diagnoses linked to this encounter. By: Ton Ling APRN, CNP, 12/19/2023, 8:10 AM CDT Primary Care Physician: Irving Jeffries MD documented in this encounter Procedure Notes * Che Granados RMA - 12/19/2023 9:30 AM CDTAssociated Order(s): RAN,POST-VOID RES,US,NON-IMAGING POCT Bladder Scan collected per standing order of Ton Ling NP on 12/19/2023 PVR= 10 ML documented in this encounter Plan of Treatment Not on file documented as of this encounter Procedures Procedure Name Priority Date/Time Associated Diagnosis Comments RAN,POST-VOID RES,US,NON-IMAGING Routine 12/19/2023 9:30 AM CDT Benign prostatic hyperplasia with urinary obstruction POCT UA AUTOMATED W/O MICRO Routine 12/19/2023 9:27 AM CDT Benign prostatic hyperplasia with urinary obstruction documented in this encounter Results * RAN,POST-VOID RES,US,NON-IMAGING (12/19/2023 9:30 AM CDT) Narrative Che Granados, RMA - 12/19/2023 9:30 AM CDT Che Granados, RMA ? 12/19/2023 ??9:45 AM POCT Bladder Scan collected per standing order of Ton Ling DICTATING MACHINE MECHANIC on 12/19/2023 PVR= 10 ML us Ton Ling APRN, TROUBLE TRACER OR - SURGERY Final Result * POCT UA AUTOMATED W/O MICRO (12/19/2023 9:27 AM CDT) POC UA SPECIFIC GRAVITY 1.000 URINE PH 5.0 5.0 - 9.0 POC URINE LEUKOCYTES Negative Negative Mei/uL POC URINE NITRITE Negative Negative POC URINE PROTEIN Negative Negative mg/dL POC URINE GLUCOSE Norm Negative, Norm mg/dL POC URINE KETONE Negative Negative mg/dL POC URINE UROBILINOGEN Norm Norm, 0.2 E.U./dL (mg/dL), 1 E.U./dL (mg/dL) POC URINE BILIRUBIN Negative Negative mg/dL POC URINE BLOOD INSTRUMENT Negative Negative Kris/uL POC URINE COLOR Yellow POC URINE CLARITY Clear 12/19/2023 9:27 AM CDT us Ton Ling APRN, TROUBLE TRACER POINT OF CARE TESTING (MANUAL) Final Result documented in this encounter Visit Diagnoses Diagnosis Benign prostatic hyperplasia with urinary obstruction- Primary Elevated PSA Elevated prostate specific antigen (PSA) documented in this encounter Additional Health Concerns Assessment Noted Time PHQ-9 Depression Total Score: 0 08/14/19 24 3:02 PM LINE SERVICER documented as of this encounter Care Teams Director Digital Marketing Relationship Specialty Start Date End Date Irving Jeffries MD [address] [place] [address] PCP - General Internal Medicine 07/16/21 07/04/24 Ton Ling APRN, TROUBLE TRACER [address] [place] [address] Nurse Practitioner Advanced Practice Nurse 04/24/23 Ame Scanlon APRN, TROUBLE TRACER #2 [facility] [address] [place] [address] Nurse Practitioner Cardiology 08/23/23 Michael Ahmadi MD [address] [place] [address] Consulting Physician Medical Oncology 07/26/23 documented as of this encounter
--- OUTSIDE RECORDS SUMMARY | 2024-07-28 14:06 | XMS_ITS | Encounter Summary ---
Author Organization [facility] Address [address] [facility] [place] [address] Phone Care Team Providers Care Service Order Taker Name Role Phone Irving Jeffries MD Primary Care Provider Ton Ling API ARCHITECT, RN TEACHER Unavailable [phone] Ame Scanlon API ARCHITECT, RN TEACHER Unavailable Michael Ahmadi MD Unavailable Encounter Details Date Type Department Care Team (Late st Contact Info) Description 09/28/2023 Telephone [facility] Oncology Services [address] [place] [address] Michael Ahmadi MD [address] [place] [address] Social History Tobacco Use Types Packs/Day Years Used Date Smoking Tobacco: Former Cigarettes 2 20 Passive Smoke Exposure: Past Smokeless Tobacco: Never Alcohol Use Standard Drinks/Week Comments Not Currently 0 (1 standard drink = 0.6 oz pur e alcohol) [facility] Utilities Answer Date Recorded In the [...] How often do you attend mormon or yarsanism serv ices? Patient declined 09/03/2023 Do you [...] Questions 1-9 0 07/31 [facility] - Occupational Stress Questionnaire Answer Date Recorded [...] place to sleep or slept in a penitentiary (including now)? Patient declined 09/03/2023 Sexually Active Control Partners Comments Never Sex and Gender Information Value Date Recorded Sex Assigned at Not on file Legal Sex Male 11:18 PM CDT Gender Identity Not on file Sexual Orientation Not on file documented as of this encounter Miscellaneous Notes * Telephone Encounter - Annabel Sosa RN - 09/28/2023 1:06 PM MATERIAL MAN Spoke with Laura, from [employer], asking what dx is for patient needing PT/PTT discussed thrombocytopenia and the need for bone marrow biopsy. Laura verbalized understanding. RIAL MAN documented in this encounter Plan of Treatment Not on file documented as of this encounter Visit Diagnoses Not on filedocumented in this encounter Additional Health Concerns Assessment Noted Time PHQ-9 Depression Total Score: 0 08/14/19 3:02 PM MATERIAL MAN documented as of this encounter Care Teams Service Order Taker Relationship Specialty Start Date End Date Irving Jeffries MD [address] [place] [address] PCP - General Internal Medicine 07/16/21 07/04/24 Ton Ling, API ARCHITECT, RN TEACHER [address] [place] [address] Nurse Practitioner Advanced Practice Nurse 04/24/23 Ame Scanlon APRN, RN TEACHER #2 [facility], [address] [place] [address] Nurse Practitioner Cardiology 08/23/23 Michael Ahmadi MD [address] [place] [address] Consulting Physician Medical Oncology 07/26/23 documented as of this encounter
--- OUTSIDE RECORDS SUMMARY | 2024-07-28 14:06 | XMS_ITS | Encounter Summary ---
Author Organization [facility] Address [address] [facility] [place] [address] Phone Care Team Providers Care Toy Electric Train Repairer Name Role Phone Irving Jeffries MD Primary Care Provider [phone] Ton Ling LABEL PRINTING MACHINIST, EDM OPERATOR Unavailable Ame Scanlon LABEL PRINTING MACHINIST, EDM OPERATOR Unavailable + [phone] Michael Ahmadi MD Unavailable [phone] Reason for Visit * Reason Comments Follow-up Encounter Details Date Type Department Care Team (Latest Contact Info) Description 01/17/2024 10:20 AM CDT Office Visit [facility] On[facility] [address] [place] [id number] Michael Ahmadi MD [address] [place] [address] Chronic ITP (idiopathic thrombocytopenia) (HCC) (Primary Dx); Thrombocytopenia (HCC); Iron deficiency; Chronic undifferentiated schizophrenia (HCC) Discharge Disposition: Discharged to home or Selfcare Social History Tobacco Use Types Packs/Day Years Used Date Smoking Tobacco: Former Cigarettes 2 20 Passive Smoke Exposure: Past Smokeless Tobacco: Never Alcohol Use Standard Drinks/Week Comments Not Currently 0 (1 standard drink = 0.6 oz pur e alcohol) [facility] Utilities Answer Date Recorded In the past 12 months has th e electric, gas, oil, or water [employer] threatened to shut off services in your home? Patient declined 09/03/2023 Social Connection and Isolation Panel [NHANES] A nswer Date Recorded In a typical week, how many times do you talk on the phone with family, friends, or neighbors? Patient declined 09/03/2023 How often do you get togethe r with friends or relatives? Patient declined 09/03/2023 How often do you attend worship or lutheran serv ices? Patient declined 09/03/2023 Do you belong to any clubs o r organizations such as worship groups, unions, fraternal or athletic groups, or [...] Total Score - Questions 1-9 0 07/31 [facility] - [...] Sign Reading Time Taken Comments Blood Pressure 128/91 01/17/2024 10:48 AM CDT Pulse 99 01/17/2024 10:48 AM CDT Temperature 35.9 ??C (96.7 ??F) 01/17/2024 10:48 AM C DT Respiratory Rate 18 01/17/2024 10:48 AM CDT Oxygen Saturation 96% 01/17/2024 10:48 AM CDT Inhaled Oxygen Concentration - - Weight 89.9 kg (198 lb 3.2 oz) 01/17/2024 10:48 AM CDT Height 182.9 cm (6') 01/17/2024 10:48 AM CDT Body Mass Index 26.88 01/17/2024 10:48 AM CDT documented in this encounter Progress Notes * Mayra Duenas - 01/17/2024 10:20 AM CDT Outpatient Hem/Onc Progress Note Interval history: Iván Dumont is a 78 y.o. male seen today for follow up of severe thrombocytopenia. Patient requests to be called Norberto. Norberto is here today accompanied by friend living adjacent to facility for support. During last OV on 09/25/23 patient was started on Ferrous Sulfate 325 mg daily through facility p sonia. He required Injectafer 750 mg infusions on 11/22/23 and 11/29/23 after inadequate response tooral iron. Norberto's PLT level was 17K on 01/12/24. He was originally worked up for thrombocytopenia by my colleague Gilda IRAHETA. on review of his labs in February of 2023 his platelet count [...] or bruising reported. Norberto was started on Dexametha sone 20 mg BID for 4 days on 07/14/23 for PLT count of 9k on 07/12/23 for clinical suspicion of ITP. Norberto completed BMBX on 09/22/23 with normo-cellular marrow with absent iron stores. BMBX was delayedto hospital admission occurring after last OV. Norberto was admitted after last OV with sepsis related to UTI through 09/05/23. He was discharged with Barakat catheter in place. Norberto was evaluated by Ton Ling AIR ANALYST on 09/11/23 with voiding trial failed this day. He returned on 09/12/23 with repeat voiding trial completed without residual. Patient again returned to urology on 09/19/23 with bladder scanshowing 91 cc bladder in urine. Prior to this admission he was admitted to [facility] 07/28/23 through 08/07/23 for atrial fibrillation RVR state, RSV infection, and urinary retention. Barakat catheter was placed to improve urinary retention with Xarelto started for A.fib. He returned to [facility] on 08/09/23 for blood present in catheter; discharged with advice to hold Xarelto for 2 days to prevent recurrent ble eding. Patient was seen by Ton Gonzalez AIR ANALYST on 08/15/23 with barakat removed, Tamsulosin increased toBID, and start Finasteride. He returned on 08/18/23 for gross hematuria and inability to urinate with barakat placed. Norberto reports appetite remains stable with ability to tolerate wide variety of foods. He reports remaining active by walking in neighborhood and doing PT exercises. Norberto denies any current urinary retention, hematuria, or dysuria. Denies fevers, chills, cough, or other signs of infection. Reviewed patients past medical, surgical, social, and family history. No outpatient medications have been marked as taking for the 01/17/24 encounter (Appointment) with Micahel Ahmadi MD. Allergies as of 01/17/2024 (No Known Allergies) REVIEW OF SYSTEMS Review [...] alert. PAIN ASSESSMENT: no verbal complaints DATA: Lab Results Component Value Date WBC 8.06 01/12/2024 RBC 4.54 01/12/2024 HEMOGLOBIN 13.2 01/12/2024 HEMATOCRIT 40.3 01/12/2024 MCV 88.8 01/12/2024 MCH 29.1 01/12/2024 MCHC 32.8 01/12/2024 PLATELETCNT 17 (LL) 01/12/2024 RDW 18.0 (H) 01/12/2024 LYMPHOCYTES 18.7 (L) 01/12/2024 RELEOS 0.0 01/12/2024 RELBAS 0.5 01/12/2024 ANC 5.73 (H) 01/12/2024 MONOCYTES 0.78 01/12/2024 EOSINOPHILS 0.00 01/12/2024 BASOPHILS 0.04 01/12/2024 Lab Results Component Value Date SODIUM 139 01/12/2024 POTASSIUM 4.1 01/12/2024 CHLORIDE 108 (H) 01/12/2024 ANIONGAP 15.1 01/12/2024 GLUCOSE 132 (H) 01/12/2024 BUN 14 01/12/2024 CREATININE 0.95 01/12/2024 TOTALPROTEIN 6.9 01/12/2024 ALBUMIN 4.1 01/12/2024 CALCIUM 9.3 01/12/2024 SGPTALT 14 01/12/2024 ALKALINEPHO 86 01/12/2024 Lab Results Component Value Date IRON 65 01/12/2024 TIBC 270 01/12/2024 IRONSATURATI 24 01/12/2024 FERRITIN 334 (H) 01/12/2024 11/08/23 LABS [facility]: CBC WBC 7.3 HGB [...] 04/24/2023 Lab Results Component Value Date IRON 65 01/12/2024 TIBC 270 01/12/2024 IRONSATURATI 24 01/12/2024 FERRITIN 334 (H) 01/12/2024 [id number] 486 03/15/2023 DIAGNOSTIC IMAGING STUDIES: 07/29/23 CT [...] retention, barakat catheter in place Plan: 2. START Dexamethasone 4 mg take 5 tabs PO BID for 4 days in attempt to improve PLT levels that dropped without interventions. Patient will cntinue Omeprazole 20 mg daily to prevent acid reflux symptoms related to oral steroids. 3. Obtain CBC every 2 weeks to monitor levels for need for [...] after recent hospital admission. Follow up in 5-6 weeks with labs prior Labs: CBC, CMP, Iron studies, and ferritin The patient was given an opportunity to ask questions, and all questions answered to patient's satisfaction. Patient verbalizes understanding of the plan as outlined above. The documentation for this visit was completed by Mayra Duenas acting as a scribe for Michael Valdovinos MD. 01/17/2024, 10:16 AM CDT * Michael Ahmadi MD - 01/17/2024 10:20 AM CDT Outpatient Hem/Onc Progress Note Interval history: Iván Dumont is a 78 y.o. male seen today for follow up of severe thrombocytopenia. Patient requests to be called Norberto. Norberto is here today accompanied by friend living adjacent to facility for support. During last OV on 09/25/23 patient was started on Ferrous Sulfate 325 mg daily through facility p sonia. He required Injectafer 750 mg infusions on 11/22/23 and 11/29/23 after inadequate response tooral iron. Norberto's PLT level was 17K on 01/12/24. He was originally worked up for thrombocytopenia by my colleague Gilda IRAHETA. on review of his labs in February of 2023 his platelet count [...] or bruising reported. Norberto was started on Dexametha sone 20 mg BID for 4 days on 07/14/23 for PLT count of 9k on 07/12/23 for clinical suspicion of ITP. Norberto completed BMBX on 09/22/23 with normo-cellular marrow with absent iron stores. BMBX was delayedto hospital admission occurring after last OV. Norberto was admitted after last OV with sepsis related to UTI through 09/05/23. He was discharged with Barakat catheter in place. Norberto was evaluated by Ton Ling AIR ANALYST on 09/11/23 with voiding trial failed this day. He returned on 09/12/23 with repeat voiding trial completed without residual. Patient again returned to urology on 09/19/23 with bladder scanshowing 91 cc bladder in urine. Prior to this admission he was admitted to [facility] 07/28/23 through 08/07/23 for atrial fibrillation RVR state, RSV infection, and urinary retention. Barakat catheter was placed to improve urinary retention with Xarelto started for A.fib. He returned to [facility] on 08/09/23 for blood present in catheter; discharged with advice to hold Xarelto for 2 days to prevent recurrent ble eding. Patient was seen by Ton Gonzalez AIR ANALYST on 08/15/23 with barakat removed, Tamsulosin increased toBID, and start Finasteride. He returned on 08/18/23 for gross hematuria and inability to urinate with barakat placed. Norberto reports appetite remains stable with ability to tolerate wide variety of foods. He reports remaining active by walking in neighborhood and doing PT exercises. Norberto denies any current urinary retention, hematuria, or dysuria. Denies fevers, chills, cough, or other signs of infection. Reviewed patients past medical, surgical, social, and family history. Outpatient Medications Marked as Taking for the 01/17/24 encounter (Office Visit) with Michael Ahmadi MD [...] (FLOMAX) 0.4 MG Capsule Allergies as of 01/17/2024 (No Known Allergies) REVIEW OF SYSTEMS Review of Systems Unable to perform ROS: Mental acuity Genitourinary: Recent urinary retention, has Barakat catheter Physical Exam Physical Exam Constitutional: Appearance: Normal [...] DATA: Lab Results Component Value Date WBC 8.56 01/17/2024 RBC 4.47 01/17/2024 HEMOGLOBIN 13.3 01/17/2024 HEMATOCRIT 39.7 01/17/2024 MCV 88.8 01/17/2024 MCH 29.8 01/17/2024 MCHC 33.5 01/17/2024 PLATELETCNT 34 (L) 01/17/2024 RDW 17.6 (H) 01/17/2024 LYMPHOCYTES 18.1 (L) 01/17/2024 RELEOS 0.0 01/17/2024 RELBAS 0.6 01/17/2024 ANC 5.68 (H) 01/17/2024 MONOCYTES 1.28 (H) 01/17/2024 EOSINOPHILS 0.00 01/17/2024 BASOPHILS 0.05 01/17/2024 Lab Results Component Value Date SODIUM 139 01/12/2024 POTASSIUM 4.1 01/12/2024 CHLORIDE 108 (H) 01/12/2024 ANIONGAP 15.1 01/12/2024 GLUCOSE 132 (H) 01/12/2024 BUN 14 01/12/2024 CREATININE 0.95 01/12/2024 TOTALPROTEIN 6.9 01/12/2024 ALBUMIN 4.1 01/12/2024 CALCIUM 9.3 01/12/2024 SGPTALT 14 01/12/2024 ALKALINEPHO 86 01/12/2024 Lab Results Component Value Date IRON 65 01/12/2024 TIBC 270 01/12/2024 IRONSATURATI 24 01/12/2024 FERRITIN 334 (H) 01/12/2024 11/08/23 LABS [facility]: CBC WBC 7.3 HGB [...] 04/24/2023 Lab Results Component Value Date IRON 65 01/12/2024 TIBC 270 01/12/2024 IRONSATURATI 24 01/12/2024 FERRITIN 334 (H) 01/12/2024 [id number] 486 03/15/2023 DIAGNOSTIC IMAGING STUDIES: 07/29/23 CT [...] barakat catheter in place Plan: 1. Reviewed above clinical data including recent symptoms, labs, imaging and pathology results withpatient and family. Made them aware of recent CBC showing PLT count dropped to around 30K. Previosuly did response to shot course steroid. [place] with Dex 20 mg PO BID for 4 days. Repeat CBC in 2 weeks. FU in 4-5 weeks . Discussed diagnosis, treatment options and prognostic implication of disease. 2. START Dexamethasone 4 mg take 5 tabs PO BID for 4 days in attempt to improve PLT levels that dropped without interventions. Patient will cntinue Omeprazole 20 mg daily to prevent acid reflux symptoms related to oral steroids. 3. Obtain CBC every 2 weeks to monitor levels for need for [...] after recent hospital admission. Follow up in 5-6 weeks with labs same day-Labs: CBC, CMP The patient was given an opportunity to ask questions, and all questions answered to patient's satisfaction. Patient verbalizes understanding of the plan as outlined above. The documentation for this visit was completed by Mayra Duenas acting as a scribe for Michael Valdovinos MD. 01/17/2024, 11:11 AM CDT The documentation recorded by the scribe was completed while in the exam room with me and the patient. The documentation accurately reflects the service I personally performed and the decisions made by me. I have confirmed and edited the documentation as necessary. Michael Ahmadi MD 01/17/2024, 11:12 AM CDT documented in this encounter Miscellaneous Notes * Colleen Duarte - 01/17/2024 10:20 AM CDT The patient reports no physical complaints during today's visit. Pain score is 0. * Colleen Duarte - 01/17/2024 10:20 AM CDT AVS printed. Patient will follow up in 5-6 weeks with labs in office. * Colleen Duarte - 01/17/2024 10:20 AM CDT AVS printed. Patient will follow up in 5-6 weeks with labs in office same day. documented in this encounter Plan of Treatment Not on file documented as of this encounter Procedures Procedure Name Priority Date/Time Associated Diagnosis Comments COMPLETE BLOOD COUNT (CBC) WITH DIFF Routine 01/31/2024 12:00 AM CDT Chronic ITP (idiopathic thrombocytopenia) (HCC) documented in this encounter Results * (ABNORMAL) CMP (COMPREHENSIVE METABOLIC PANEL) (02/29/2024 9:11 AM CDT) Pathologist [facility] SODIUM 140 136 - 145 mmol/L 02/29/2024 11:43 AM CDT [facility] POTASSIUM 4.4 3.5 - 5.1 mmol/L 02/29/2024 11:43 AM CDT [facility] CHLORIDE 110(H) 98 - 107 mmol/L 02/29/2024 11:43 AM CDT [facility] CO2, VENOUS 23 22 - 30 mmol/L 02/29/2024 11:43 AM CDT [facility] ANION GAP 11.4 <18.0 mmol/L 02/29/2024 11:43 AM CDT [facility] GLUCOSE 95 70 - 99 mg/dL 02/29/2024 11:43 AM CDT [facility] BUN 15 8 - 26 mg/dL 02/29/2024 11:43 AM CDT [facility] CREATININE, BLOOD 0.89 0.70 - 1.30 mg/dL 02/29/2024 11:43 AM CDT [facility] BUN/CREATININE RATIO 17 12 - 20 ratio 02/29/2024 11:43 AM CDT [facility] TOTAL PROTEIN 6.6 6.3 - 8.2 g/dL 02/29/2024 11:43 AM CDT [facility] ALBUMIN 4.1 3.5 - 5.0 g/dL 02/29/2024 11:43 AM CDT [facility] A/G RATIO 1.6 1.0 - 2.2 02/29/2024 11:43 AM CDT [facility] CALCIUM 9.3 8.7 - 10.5 mg/dL 02/29/2024 11:43 AM CDT [facility] T BILI 0.3 0.2 - 1.2 mg/dL 02/29/2024 11:43 AM CDT [facility] SGOT (AST) 13 5 - 34 U/L 02/29/2024 11:43 AM CDT [facility] SGPT (ALT) 16 0 - 55 U/L 02/29/2024 11:43 AM CDT [facility] ALKALINE PHOSPHATASE 81 40 - 150 U/L 02/29/2024 11:43 AM CDT [facility] IS THE PATIENT REQUIRED TO BE FASTING? No 02/29/2024 11:43 AM CDT [facility] GFR, ESTIMATED >60 >=60 02/29/2024 11:43 AM CDT [facility] Comment: Creatinine Clearance is the preferred criteria for selecting drug dose adjustments in renally impaired patients. ??The GFR is provided as additional pertinent clinical information. GFR is reported in mL/min/1.73 sq m. Calculation based on the Chronic Kidney Disease Epidemiology Collaboration (CKD- EPI) equation refit without adjustment for race. GFR, EST. >60 >=60 024 11:43 AM CDT [facility] GFR, EST. 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 Thrombocytopenia (HCC) Thrombocytopenia, unspecified Iron deficiency Other disorders of iron metabolism 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, chronic condition documented in this encounter Additional Health Concerns Assessment Noted Time PHQ-9 Depression Total Score: 0 08/14/19 24 3:02 PM TOE LASTER documented as of this encounter Care Teams Toy Electric Train Repairer Relationship Specialty Start Date End Date Irving Jeffries MD [address] [place] [address] PCP - General Internal Medicine 07/16/21 07/04/24 Ton Ling APRN, EDM OPERATOR [address] [place] [address] Nurse Practitioner Advanced Practice Nurse 04/24/23 Ame Scanlon APRN, EDM OPERATOR #2 [facility] [address] [place] [address] Nurse Practitioner Cardiology 08/23/23 Michael Ahmadi MD [address] [place] [address] Consulting Physician Medical Oncology 07/26/23 documented as of this encounter
--- OUTSIDE RECORDS SUMMARY | 2024-07-28 14:06 | XMS_ITS | Encounter Summary ---
Author Organization [facility] Address [address] [facility] [place] [address] Phone Care Team Providers Care Milk Pickup Driver Name Role Phone Irving Jeffries MD Primary Care Provider [phone] Ton Ling EXPERIMENTAL PREFLIGHT MECHANIC, PIZZA BAKER Unavailable Ame Scanlon EXPERIMENTAL PREFLIGHT MECHANIC, PIZZA BAKER Unavailable + [phone] Michael Ahmadi MD Unavailable Reason for Visit * Reason Comments Hypertension Encounter Details Date Type Department Care Team (Late st Contact Info) Description 10/24/2023 Nursing Facility [facility] - Internal Medicine - [place] [address] [place] [address] Irving Jeffries MD [address] [place] [address] Essential hypertension, benign (Primary Dx); Mixed hyperlipidemia; GERD without esophagitis; BPH with obstruction/lower urinary tract symptoms; Urinary frequency Social History Tobacco Use Types Packs/Day Years Used Date Smoking Tobacco: Former Cigarettes 2 20 Passive Smoke Exposure: Past Smokeless Tobacco: Never Alcohol Use Standard Drinks/Week Comments Not Currently 0 (1 standard drink = 0.6 oz pur e alcohol) [facility] Utilities Answer Date Recorded In the past 12 months has [employer] gas, oil, or water [employer] threatened to shut off services in your home? Patient declined 09/03/2023 Social Connection and Isolation Panel [NHANES] A nswer Date Recorded In a typical week, how many times do you talk on the phone with family, friends, or neighbors? Patient declined 09/03/2023 How often do you get togethe r with friends or relatives? Patient declined 09/03/2023 How often do you attend restorationism or pentecostalism serv ices? Patient declined 09/03/2023 Do you belong to any clubs o r organizations such as restorationism groups, unions, fraternal or athletic groups, or [...] Total Score - Questions 1-9 0 07/31 [facility] - Occupational [...] Sign Reading Time Taken Comments Blood Pressure 129/41 10/24/2023 5:31 PM CDT Pulse 78 10/24/2023 5:31 PM CDT Temperature - - Respiratory Rate - - Oxygen Saturation - - Inhaled Oxygen Concentration - - Weight 88 kg (194 lb) 10/24/2023 5:31 PM CDT Height - - Body Mass Index 26.31 10/24/2023 1:58 PM CDT documented in this encounter Progress Notes * Irving Jeffries MD - 10/24/2023 5:31 PM CDT Residential Progress Note 10/24/2023 Iván Dumont 1945 Residential: [facility] Type of Visit: {BLANK/FREE TEXT:[id number] Medications and allergies has been reviewed and updated. CC/HPI Chief Complaint Patient presents with Hypertension Patient had follow-up visit for hypertension and other medical problems. Complains of urinary frequency and incontinence. Tolerating medications well. Being followed by urologist for elevated PSA. ROS: Review of Systems Review of systems was negative, except as documented in HPI PHYSICAL EXAM: Vital signes reviewed. HEENT- Normocephalic. Conjunctiva-Normal, Viktor SREE, Cervical LN- not palpable. Thyroid- NL Heart- S1 S2- regular Lungs- Clear on auscultation. No wheezing. No rales Abdomen- No distention, soft, non tender, BS-NL LE- No edema Skin- warm and dry ASSESSMENT & PLAN: Diagnoses and all orders for this visit: Essential hypertension, benign Mixed hyperlipidemia GERD without esophagitis BPH with obstruction/lower urinary tract symptoms Urinary frequency - URINALYSIS REFLEX IF INDICATED BY ABNORMAL RESULTS; Future Lab results from 09/20/2023 reviewed. Continue current medications and care Will do UA with reflex to C&S for evaluation for urinary frequency and incontinence. Voice recognition software was utilized in this dictation. Despite proof reading, typographical errors and/or content errors may have occurred. By: Irving Jeffries MD 10/24/2023 5:34 PM CDT documented in this encounter Plan of Treatment Not on file documented as of this encounter Visit Diagnoses Diagnosis Essential hypertension, benign- Primary Mixed hyperlipidemia GERD without esophagitis Esophageal reflux BPH with obstruction/lower urinary tract symptoms Hypertrophy of prostate with urinary obstruction and other lower urinary tract symptoms (LUTS) Urinary frequency documented in this encounter Additional Health Concerns Assessment Noted Time PHQ-9 Depression Total Score: 0 08/14/19 24 3:02 PM COUNCIL ON AGING DIRECTOR documented as of this encounter Care Teams Milk Pickup Driver Relationship Specialty Start Date End Date Irving Jeffries MD [address] [place] [address] PCP - General Internal Medicine 07/16/21 07/04/24 Ton Ling APRN, PIZZA BAKER [address] [place] [address] Nurse Practitioner Advanced Practice Nurse 04/24/23 Ame Scanlon APRN, PIZZA BAKER [address] [facility], [address] [place] [address] Nurse Practitioner Cardiology 08/23/23 Michael Ahmadi MD [address] [place] [address] Consulting Physician Medical Oncology 07/26/23 documented as of this encounter
--- OUTSIDE RECORDS SUMMARY | 2024-07-28 14:06 | XMS_ITS | Encounter Summary ---
Author Organization [employer] Care Team Providers Care Cap Blocker Name Role Phone Irving Jeffries MD Primary Care Provider [phone] Ton Ling APRN, TRANSITIONAL KINDERGARTEN TEACHER Unavailable [phone] Ame Scanlon APRN, TRANSITIONAL KINDERGARTEN TEACHER Unavailable + [phone] Michael Ahmadi MD Unavailable [phone] Encounter Details Date Type Department Care Team (Latest Contact Info) Description 11/13/2023 Travel Social History Tobacco Use Types Packs/Day Years Used Date Smoking Tobacco: Former Cigarettes 2 20 Passive Smoke Exposure: Past Smokeless Tobacco: Never Alcohol Use Standard Drinks/Week Comments Not Currently 0 (1 standard drink = 0.6 oz pur e alcohol) [facility] Utilities Answer Date Recorded In the past 12 months has [employer], gas, oil, or water [employer] threatened to shut off services in your home? Patient declined 09/03/2023 Social Connection and Isolation Panel [NHANES] A nswer Date Recorded In a typical week, how many times do you talk on the phone with family, friends, or neighbors? Patient declined 09/03/2023 How often do you get togethe r with friends or relatives? Patient declined 09/03/2023 How often do you attend orthodox or yarsani serv ices? 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
--- OUTSIDE RECORDS SUMMARY | 2024-07-28 14:06 | XMS_ITS | Encounter Summary ---
Author Organization [employer] Care Team Providers Care Property Assessment Monitor Name Role Phone Irving Jeffries MD Primary Care Provider [phone] Ton Ling APRN, ACCOUNT COORDINATOR Unavailable [phone] Ame Scanlon APRN, ACCOUNT COORDINATOR Unavailable + [phone] Michael Ahmadi MD Unavailable [phone] Encounter Details Date Type Department Care Team (Latest Contact Info) Description 11/22/2023 Travel Social History Tobacco Use Types Packs/Day Years Used Date Smoking Tobacco: Former Cigarettes 2 20 Passive Smoke Exposure: Past Smokeless Tobacco: Never Alcohol Use Standard Drinks/Week Comments Not Currently 0 (1 standard drink = 0.6 oz pur e alcohol) [facility] Utilities Answer Date Recorded In the past 12 months has [employer], gas, oil, or water [employer] threatened to shut off services in your home? Patient declined 09/03/2023 Social Connection and Isolation Panel [NHANES] A nswer Date Recorded In a typical week, how many times do you talk on the phone with family, friends, or neighbors? Patient declined 09/03/2023 How often do you get togethe r with friends or relatives? Patient declined 09/03/2023 How often do you attend scientology or muslim serv ices? Patient declined 09/03/2023 Do you belong to any clubs o r organizations such as scientology groups, unions, fraternal or athletic groups, or [...] - Questions 1-9 0 07/31 [facility] of Occupat ional [facility] - Occupational Stress Questionnaire [...] place to sleep or slept in a snf (including now)? Patient declined 09/03/2023 Sexually Active [...] Depression Total Score: 0 08/14/19 3:02 PM WET ROLLER documented as of this encounter Care Teams Property Assessment Monitor Relationship Specialty Start Date End Date Irving Jeffries MD [address] [place] [address] PCP - General Internal Medicine 07/16/21 07/04/24 Ton Ling APRN, ACCOUNT COORDINATOR [address] [place] [address] Nurse Practitioner Advanced Practice Nurse 04/24/23 Ame Scanlon APRN, ACCOUNT COORDINATOR #[address] [facility], [address] [place] [address] Nurse Practitioner Cardiology 08/23/23 Michael Ahmadi MD [address] [place] [address] Consulting Physician Medical Oncology 07/26/23 documented as of this encounter
--- OUTSIDE RECORDS SUMMARY | 2024-07-28 14:06 | XMS_ITS | Encounter Summary ---
Author Organization [employer] Care Team Providers Care Electrical Engineering Technician Name Role Phone Irving Jeffries MD Primary Care Provider [phone] Ton Ling APRN, ELECTRIC PLATER Unavailable [phone] Ame Scanlon APRN, ELECTRIC PLATER Unavailable + [phone] Michael Ahmadi MD Unavailable [phone] Encounter Details Date Type Department Care Team (Latest Contact Info) Description 01/12/2024 Travel Social History Tobacco Use Types Packs/Day Years Used Date Smoking Tobacco: Former Cigarettes 2 20 Passive Smoke Exposure: Past Smokeless Tobacco: Never Alcohol Use Standard Drinks/Week Comments Not Currently 0 (1 standard drink = 0.6 oz pur e alcohol) [facility] Utilities Answer Date Recorded In the past 12 months has [employer], gas, oil, or water [employer] threatened to shut off services in your home? Patient declined 09/03/2023 Social Connection and Isolation Panel [NHANES] A nswer Date Recorded In a typical week, how many times do you talk on the phone with family, friends, or neighbors? Patient declined 09/03/2023 How often do you get togethe r with friends or relatives? Patient declined 09/03/2023 How often do you attend temple or buddhist serv ices? Patient declined 09/03/2023 Do you belong to any clubs o r organizations such as temple groups, unions, fraternal or athletic groups, or [...] Total Score - Questions 1-9 0 07/31 [facility] of Occupat ional [facility] - Occupational Stress Questionnaire Answer Date [...] place to sleep or slept in a correction (including now)? Patient declined 09/03/2023 Sexually Active [...] Depression Total Score: 0 08/14/19 3:02 PM GEAR SHAVER SET UP OPERATOR documented as of this encounter Care Teams Electrical Engineering Technician Relationship Specialty Start Date End Date Irving Jeffries MD [address] [place] [address] PCP - General Internal Medicine 07/16/21 07/04/24 Ton Ling APRN, ELECTRIC PLATER [address] [place] [address] Nurse Practitioner Advanced Practice Nurse 04/24/23 Ame Scanlon APRN, ELECTRIC PLATER [address] [facility], [address] [place] [address] Nurse Practitioner Cardiology 08/23/23 Michael Ahmadi MD [address] [place] [address] Consulting Physician Medical Oncology 07/26/23 documented as of this encounter
--- OUTSIDE RECORDS SUMMARY | 2024-07-28 14:06 | XMS_ITS | Encounter Summary ---
Author Organization [employer] Care Team Providers Care Knurling Machine Operator Name Role Phone Irving Jeffries MD Primary Care Provider [phone] Ton Ling APRN, CUT OFF SAWYER Unavailable [phone] Ame Scanlon APRN, CUT OFF SAWYER Unavailable + [phone] Michael Ahmadi MD Unavailable [phone] Encounter Details Date Type Department Care Team (Latest Contact Info) Description 01/17/2024 Travel Social History Tobacco Use Types Packs/Day Years Used Date Smoking Tobacco: Former Cigarettes 2 20 Passive Smoke Exposure: Past Smokeless Tobacco: Never Alcohol Use Standard Drinks/Week Comments Not Currently 0 (1 standard drink = 0.6 oz pur e alcohol) [facility] Utilities Answer Date Recorded In the past 12 months has [employer], gas, oil, or water [employer] threatened to shut off services in your home? Patient declined 09/03/2023 Social Connection and Isolation Panel [NHANES] A nswer Date Recorded In a typical week, how many times do you talk on the phone with family, friends, or neighbors? Patient declined 09/03/2023 How often do you get togethe r with friends or relatives? Patient declined 09/03/2023 How often do you attend mandaeism or yazidi serv ices? Patient declined 09/03/2023 Do you belong to any clubs o r organizations such as mandaeism groups, unions, fraternal or athletic groups, or [...] Total Score - Questions 1-9 0 07/31 [facility] of Occupat ional [facility] - Occupational Stress Questionnaire Answer Date [...] place to sleep or slept in a long term (including now)? Patient declined 09/03/2023 Sexually Active [...] Depression Total Score: 0 08/14/19 3:02 PM GIS SOFTWARE DEVELOPER documented as of this encounter Care Teams Knurling Machine Operator Relationship Specialty Start Date End Date Irving Jeffries MD [address] [place] [address] PCP - General Internal Medicine 07/16/21 07/04/24 Ton Ling APRN, CUT OFF SAWYER [address] [place] [address] Nurse Practitioner Advanced Practice Nurse 04/24/23 Ame Scanlon APRN, CUT OFF SAWYER [address] [facility], [address] [place] [address] Nurse Practitioner Cardiology 08/23/23 Michael Ahmadi MD [address] [place] [address] Consulting Physician Medical Oncology 07/26/23 documented as of this encounter
--- OUTSIDE RECORDS SUMMARY | 2024-07-28 14:06 | XMS_ITS | Encounter Summary ---
Author Organization [facility] Address [address] [place] [address] Phone Care Team Providers Care Transport Manager Name Role Phone Irving Jeffries MD Primary Care Provider Ton Ling CUSHION PADDER, ADMINISTRATION INTERNSHIP Unavailable Ame Scanlon CUSHION PADDER, ADMINISTRATION INTERNSHIP Unavailable + [phone] Michael Ahmadi MD Unavailable [phone] Reason for Visit * Episode Based Medications (Routine) - Closed Specialty Diagnoses / Procedures Referred By Contclay t Referred To Contact Diagnoses Iron deficiency Michael Ahmadi MD [address] [place] [address] Phone: tel: fax: [facility] [address] [place] [address] Phone: tel: fax: Referral ID Status Reason Start Date Expiration Date Visits Re quested Visits Authorized [id number] Closed 11/13/2023 1 1 Encounter Details Date Type Department Care Team (Late st Contact Info) Description 11/29/2023 1:00 PM CDT Clinical Support [facility] [address] [place] [address] Michael Ahmadi MD [address] [place] [address] Iron deficiency (Primary Dx) Discharge Disposition: Discharged to home or Selfcare Social History Tobacco Use Types Packs/Day Years Used Date Smoking Tobacco: Former Cigarettes 2 20 Passive Smoke Exposure: Past Smokeless Tobacco: Never Alcohol Use Standard Drinks/Week Comments Not Currently 0 (1 standard drink = 0.6 oz pur e alcohol) [facility] Utilities Answer Date Recorded In the past 12 months has e electric, gas, oil, or water [employer] threatened to shut off services in your home? Patient declined 09/03/2023 Social Connection and Isolation Panel [NHANES] A nswer Date Recorded In a typical week, how many times do you talk on the phone with family, friends, or neighbors? Patient declined 09/03/2023 How often do you get togethe r with friends or relatives? Patient declined 09/03/2023 How often do you attend sikhism or pentecostal serv ices? Patient declined 09/03/2023 Do you belong to any clubs o r organizations such as sikhism groups, unions, fraternal or athletic groups, or [...] Total Score - Questions 1-9 0 07/31 [facility] Occupat ional Health - Occupational [...] Reading Time Taken Comments Blood Pressure 145/70 11/29/2023 1:19 PM CDT Pulse 73 11/29/2023 1:19 PM CDT Temperature 36.2 ??C (97.1 ??F) 11/29/2023 1:19 PM CD T Respiratory Rate 16 11/29/2023 1:19 PM CDT Oxygen Saturation 98% 11/29/2023 1:19 PM CDT Inhaled Oxygen Concentration - - Weight - - Height - - Body Mass Index - - documented in this encounter Progress Notes * Kelsey Miller, RN - 11/29/2023 1:00 PM CDT Patient arrived in Infusion. IV started. Medication given as order per parameters per MD. See VS/IVper flowsheets. Infusion completed. IV dc'd. Patient discharged without concerns. AVS declined documented in this encounter Plan of Treatment [...] 9:49 AM), Intravenous, ONCE, 1 dose, On Mon11/29/23 at 1400, Administer over 15 MinutesIndications:Iron deficiency New Bag 11/29/2023 1:35 PM CDT 750 mg documented in this encounter Additional Health Concerns Assessment Noted Time PHQ-9 Depression Total Score: 0 08/14/19 3:02 PM POSTAL CLERK documented as of this encounter Care Teams Transport Manager Relationship Specialty Start Date End Date Irving Jeffries MD [address] [place] [address] PCP - General Internal Medicine 07/16/21 07/04/24 Ton Ling APRN, ADMINISTRATION INTERNSHIP [address] [place] [address] Nurse Practitioner Advanced Practice Nurse 04/24/23 Ame Scanlon APRN, ADMINISTRATION INTERNSHIP #[address] [facility] [place] [facility], [facility] [address] [place] [address] Nurse Practitioner Cardiology 08/23/23 Michael Ahmadi MD [address] [place] [address] Consulting Physician Medical Oncology 07/26/23 documented as of this encounter
--- OUTSIDE RECORDS SUMMARY | 2024-07-28 14:06 | XMS_ITS | Encounter Summary ---
Author Organization [facility] Address [address] [place] [address] Phone Care Team Providers Care Rock Loader Name Role Phone Irving Jeffries MD Primary Care Provider Ton Ling SENIOR SOFTWARE ANALYST, SHIPPING ASSOCIATE Unavailable Ame Scanlon SENIOR SOFTWARE ANALYST, SHIPPING ASSOCIATE Unavailable Michael Ahmadi MD Unavailable Reason for Visit * Reason Comments Post-Hospital Follow-up Encounter Details Date Type Department Care Team (Latest Contact Info) Description 10/03/2023 2:40 PM CLERICAL ADVISER Office Visit [facility] - [facility]iology - [place] [address] [place] [address] Ame Scanlon, SENIOR SOFTWARE ANALYST, SHIPPING ASSOCIATE [address] [facility], [address] [place] [address] Atrial fibrillation with RVR (HCC) (Primary Dx); Thrombocytopenia (HCC); Anemia, unspecified type; Chronic undifferentiated schizophrenia (HCC) Discharge Disposition: Discharged [...] declined 09/03/2023 How often do you attend tenriism or denominational serv ices? Patient declined 09/03/2023 Do you belong to any clubs o r organizations such as tenriism groups, unions, fraternal or athletic groups, or [...] Total Score - Questions 1-9 0 07/31 [facility] of Occupat ional Health - Occupational Stress [...] Sign Reading Time Taken Comments Blood Pressure 130/70 10/03/2023 1:58 PM CLERICAL ADVISER Pulse 70 10/03/2023 1:58 PM CLERICAL ADVISER Temperature 36.5 ??C (97.7 ??F) 10/03/2023 1:58 PM CS T Respiratory Rate 16 10/03/2023 1:58 PM CLERICAL ADVISER Oxygen Saturation 97% 10/03/2023 1:58 PM CLERICAL ADVISER Inhaled Oxygen Concentration - - Weight 87.1 kg (192 lb) 10/03/2023 1:58 PM CLERICAL ADVISER Height 182.9 cm (6') 10/03/2023 1:58 PM CLERICAL ADVISER Body Mass Index 26.04 10/03/2023 1:58 PM CLERICAL ADVISER documented in this encounter Progress Notes * Ame Scanlon, SENIOR SOFTWARE ANALYST, SHIPPING ASSOCIATE - 10/03/2023 2:40 PM CST HISTORY AND PHYSICAL Assessment & Plan: 1. Atrial fibrillation with RVR (HCC) -rate controlled. Continue daily metoprolol. -Xarelto on hold due to severe thrombocytopenia. We will resume once cleared by Hematology 2. Thrombocytopenia (HCC) 3. Anemia, unspecified type -patient following with Hematology for severe thrombocytopenia and chronic anemia. -currently on blood thinners on hold due to significant low platelet count 4. Chronic undifferentiated schizophrenia (HCC) -follows with PCP and Psychiatry. Patient was stable cardiac symptoms since resolution of respiratory failure, RSV virus. Return to clinic in 9 months or sooner with any concerns or change in symptoms. We will continue to hold Xarelto due to recommendations by Hematology. Could consider Watchman device in future if interested. Subjective: HPI: Iván Dumont is a 77 y.o. male who is seen in cardiology clinic for follow-up from recent hospitalization. Past medical history significant for hypertension, stroke, schizophrenia,AFib with RVR. Initially met patient hospital during admission for respiratory failure, RSV positive, found to be in AFib with RVR with noted hypoxia. He was treated at that time with IV Cardizem andtransitioned to oral metoprolol. Started on oral anticoagulation at that time for CHADS-VASc of 5. However patient with chronic anemia noted thrombocytopenia, follows with Hematology, has been stopped of his OAC. Patient reports today with very stable symptoms. He denies chest pain, dyspnea, orthopnea, PND, palpitations or syncope. He is in normal sinus rhythm, no signs or symptoms of cardiac decompensation. Reports cardiac symptoms greatly improved since he recovered from his RSV, respiratory failure episode. No new complaints or concerns today. Patient Active Problem List Diagnosis Date Noted Iron deficiency 09/25/2023 History of urinary retention 09/03/2023 Catheter-associated urinary tract infection 09/03/2023 Paroxysmal atrial fibrillation (HCC) 08/14/2023 Elevated PSA 08/14/2023 Anemia Thrombocytopenia (HCC) 02/02/2023 GERD without esophagitis 07/17/2020 Mixed hyperlipidemia 07/17/2020 Essential hypertension, benign 07/17/2020 Chronic undifferentiated schizophrenia (HCC) 07/17/2020 No Known Allergies Cannot display prior to admission medications because the patient has not been admitted in this contact. Current Outpatient Medications on File Prior to Visit Medication Sig Dispense Refill acetaminophen (TYLENOL) 325 MG Tablet Take 2 Tablets by mouth every 6 hours as needed for Mild or more severe pain. amLODIPine (NORVASC) 10 MG Tablet Take 1 Tablet by mouth daily. 30 Tablet 11 cloZAPine (CLOZARIL) 100 MG Tablet Take 50 mg by mouth daily. (Patient not taking: Reported on 10/03/2023) cloZAPine (CLOZARIL) 25 MG Tablet Take 50 mg by mouth nightly. (Patient not taking: Reported on 10/03/2023) Clozapine 50 MG Tablet finasteride (PROSCAR) 5 MG Tablet metoprolol tartrate (LOPRESSOR) 25 MG Tablet Take 25 mg by mouth 2 times daily. omeprazole (PriLOSEC) 20 MG CAPSULE DELAYED RELEASE Take 1 Capsule by mouth in the morning and at bedtime. 30 Capsule 7 polyethylene glycol (GLYCOLAX, MIRALAX) 17 g Pack Take 1 Packet by mouth 2 times daily as needed for Constipation - 1st line. Dissolve in 4-8 oz of liquid. Indications: Constipation 90 Packet 0 senna (SENOKOT) 8.6 MG Tablet Take 1 Tablet by mouth daily. (Patient not taking: Reported on 10/03/2023) 30 Tablet 0 sertraline (ZOLOFT) 50 MG Tablet Take 1 Tablet by mouth daily. tamsulosin (FLOMAX) 0.4 MG Capsule No current facility-administered medications on file prior to visit. Past Medical History Positives Diagnosis Date Anxiety Arthritis GERD (gastroesophageal reflux disease) Hyperlipidemia Hypertension Major depressive disorder Schizophrenia (HCC) Past Surgical History: Procedure Laterality Date NO PREVIOUS SURGERY No family history on file. Social History Socioeconomic History Marital status: Single Spouse name: Not on file Number of children: Not on file Years of education: Not on file Highest education level: Not on file Occupational History Not on file Tobacco Use Smoking status: Former Packs/day: 2.00 Years: 20.00 Additional pack years: 0.00 Total pack years: 40.00 Types: Cigarettes Passive exposure: Past Smokeless tobacco: Never Vaping Use Vaping Use: Never used Substance and Sexual Activity Alcohol use: Not [...] Session: Patient declined Stress: Patient Declined (09/03/2023) [facility] [place] of Occupational Health - Occupational Stress Questionnaire Feeling of Stress : Patient declined Social Integration: Patient Declined (09/03/2023) Social Connection and Isolation Panel [NHANES] Frequency of Communication with Friends and Family: Patient declined Frequency of Social Gatherings with Friends and Family: Patient declined Attends Orthodoxy Services: Patient declined Active Member of Clubs [...] Housing in the Last Year: Patient declined Review of Systems: Review of Systems Constitutional: Negative for chills, diaphoresis, fever, malaise/fatigue and weight loss. HENT: Negative for congestion, hearing loss, sore throat and tinnitus. Eyes: Negative for blurred vision and double vision. Respiratory: Negative for cough, hemoptysis, shortness of breath and wheezing. Cardiovascular: Negative for chest pain, palpitations, orthopnea, claudication, leg swelling and PND. Gastrointestinal: Negative for abdominal pain, constipation, diarrhea, heartburn, nausea and vomiting. Genitourinary: Negative for dysuria, frequency and hematuria. Musculoskeletal: Negative for back pain, falls, joint pain and myalgias. Skin: Negative for rash. Neurological: Negative for dizziness, speech change, focal weakness, loss of consciousness, weakness and headaches. Endo/Heme/Allergies: Does not bruise/bleed easily. Psychiatric/Behavioral: Negative for depression and substance abuse. The patient does not have insomnia. Pertinent items are noted in HPI. All other systems were reviewed and were negative. Objective: VITALS: BP 130/70 (BP Location: Right Arm, BP Position: Sitting, BP Cuff Size: Regular) Pulse 70 Temp 97.7 ??F (36.5 ??C) (Temporal) Resp 16 Ht 6' (1.829 m) Wt 192 lb (87.1 kg) SpO2 97% BMI 26.04 kg/m?? Physical Exam Constitutional: General: He is not in acute distress. Appearance: Normal appearance. He is not ill-appearing or diaphoretic. HENT: Head: Normocephalic and atraumatic. Nose: Nose normal. No congestion. Mouth/Throat: Mouth: Mucous membranes are moist. Pharynx: Oropharynx is clear. Eyes: Conjunctiva/sclera: Conjunctivae normal. Pupils: Pupils are equal, round, and reactive to light. Cardiovascular: Rate and Rhythm: Normal rate and regular rhythm. Pulses: Normal pulses. Heart sounds: Normal heart sounds. Pulmonary: Effort: Pulmonary effort is normal. Breath sounds: Normal breath sounds. Abdominal: General: Abdomen is flat. Palpations: Abdomen is soft. Musculoskeletal: General: Normal range of motion. Right lower leg: No edema. Left lower leg: No edema. Skin: General: Skin is warm and dry. Capillary Refill: Capillary refill takes less than 2 seconds. Neurological: General: No focal deficit present. Mental Status: He is alert and oriented to person, place, and time. Mental status is at baseline. Psychiatric: Mood and Affect: Mood normal. Judgment: Judgment normal. Data Review: No results for input(s): ALBUMIN , TBIL , BILIRUBIN , ALKALINEPHO , SGOTAST , SGPTALT , TOTALPROTEIN in the last 72 hours. Lab Results Component Value Date WBC 8.31 09/22/2023 HEMOGLOBIN 10.7 (L) 09/22/2023 HEMATOCRIT 33.1 (L) 09/22/2023 PLATELETCNT 60 (L) 09/22/2023 CHOLESTEROL 168 03/15/2023 TRIGLYCRIDES 611 (H) 03/15/2023 HDLCHOLESTE 24 (L) 03/15/2023 LDL 0 07/29/2020 SGPTALT 14 09/03/2023 SGOTAST 13 09/03/2023 SODIUM 138 09/05/2023 POTASSIUM 3.9 09/05/2023 CHLORIDE 109 (H) 09/05/2023 CREATININE 0.75 09/05/2023 BUN 12 09/05/2023 CO2VEN 20 (L) 09/05/2023 PSA 8.19 03/01/2023 PSASCREEN 9.18 (H) 03/15/2023 INR 0.9 09/20/2023 INR 0.9 09/20/2023 INR 0.9 09/20/2023 GLUCOSE 98 09/05/2023 HGBA1C 5.8 09/03/2023 Echocardiogram 07/28/2023: Conclusions Summary Concentric LV remodelling. Low normal LV systolic function, LVEF estimated 50%. Indeterminate diastolic function due to atrial fibrillation. Mildly dilated RV with mildly reduced systolic function. No significant valvular abnormalities. Inadequate TR jet to estimate PASP. Biatrial enlargement. Dilated IVC with respiratory variation. Normal visualized portion of aorta. I personally reviewed the above labs and radiological studies (images if available and reports), and agree with the radiologist unless stated above. 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, chronic condition documented in this encounter Additional Health Concerns Assessment Noted Time PHQ-9 Depression Total Score: 0 08/14/19 24 3:02 PM CLERICAL ADVISER documented as of this encounter Care Teams Rock Loader Relationship Specialty Start Date End Date Irving Jeffries MD [address] [place] [address] PCP - General Internal Medicine 07/16/21 07/04/24 Ton Ling APRN, SHIPPING ASSOCIATE [address] [place] [address] Nurse Practitioner Advanced Practice Nurse 04/24/23 Ame Scanlon APRN, SHIPPING ASSOCIATE [address] [facility], [address] [place] [address] Nurse Practitioner Cardiology 08/23/23 Michael Ahmadi MD [address] [place] [address] Consulting Physician Medical Oncology 07/26/23 documented as of this encounter
--- OUTSIDE RECORDS SUMMARY | 2024-07-28 14:06 | XMS_ITS | Encounter Summary ---
Author Organization [facility] Address [address] [facility] [place] [address] Phone Care Team Providers Care Cilnical Scientist Name Role Phone Irving Jeffries MD Primary Care Provider Ton Ling COLOR RECEIVER, CONTRACT RUNNER Unavailable Ame Scanlon COLOR RECEIVER, CONTRACT RUNNER Unavailable + [phone] Michael Ahmadi MD Unavailable [phone] Encounter Details Date Type Department Care Team (Latest Contact Info) Description 01/12/2024 10:40 AM CDT Clinical Support [facility] Oncology Services [address] [place] [id number] Michael Ahmadi MD [address] [place] [address] Thrombocytopenia (HCC); Iron deficiency; Anemia, unspecified type; Iron deficiency anemia due to sideropenic dysphagia Discharge Disposition: Discharged to home or Selfcare Social History Tobacco Use Types Packs/Day Years Used Date Smoking Tobacco: Former Cigarettes 2 20 Passive Smoke Exposure: Past Smokeless Tobacco: Never Alcohol Use Standard Drinks/Week Comments Not Currently 0 (1 standard drink = 0.6 oz pur e alcohol) [facility] Utilities Answer Date Recorded In the past 12 months has [employer] gas, oil, or water indico threatened to shut off services in your home? Patient declined 09/03/2023 Social Connection and Isolation Panel [NHANES] A nswer Date Recorded In a typical week, how many times do you talk on the phone with family, friends, or neighbors? Patient declined 09/03/2023 How often do you get togethe r with friends or relatives? Patient declined 09/03/2023 How often do you attend christianity or jewish serv ices? Patient declined 09/03/2023 Do you belong to any clubs o r organizations such as christianity groups, unions, fraternal or athletic groups, or [...] Total Score - Questions 1-9 0 07/31 [facility] of Occupat ional [facility] - Occupational Stress Questionnaire Answer Date [...] Progress Notes * Annabel Sosa RN - 01/12/2024 10:40 AM CDT Pt ambulated back to lab room. Discussed labs needed for the day, verbalized understanding. Labs drawn from RAC, pt tolerated well, gauze and tape placed. Pt ambulated out of lab room in stable condition. documented in this encounter Plan of Treatment Not on file documented as of this encounter Procedures Procedure Name Priority Date/Time Associated Diagnosis Comments IRON,TRANSFERN,CALC.T IBC,%SAT Routine 01/12/2024 11:38 AM CDT Thrombocytopenia (HCC) Iron deficiency Anemia, unspecified type Iron deficiency anemia due to sideropenic dysphagia CBC WITH AUTO DIFFERENTIAL Routine 01/12/2024 11:38 AM CDT Thrombocytopenia (HCC) Iron deficiency Anemia, unspecified type Iron deficiency anemia due to sideropenic dysphagia FERRITIN Routine 01/12/2024 11:38 AM CDT Thrombocytopenia (HCC) Iron deficiency Anemia, unspecified type Iron deficiency anemia due to sideropenic dysphagia CMP (COMPREHENSIVE METABOLIC PANEL) Routine 01/12/2024 11:38 AM CDT Thrombocytopenia (HCC) Iron deficiency Anemia, unspecified type Iron deficiency anemia due to sideropenic dysphagia COMPLETE BLOOD COUNT (CBC) WITH DIFF Routine 01/12/2024 11:38 AM CDT Thrombocytopenia (HCC) Iron deficiency Anemia, unspecified type Iron deficiency anemia due to sideropenic dysphagia documented in this encounter Results * (ABNORMAL) CBC WITH AUTO DIFFERENTIAL (01/12/2024 11:38 AM CDT) WBC 8.06 4.00 - 12.00 10(3)/mcL 01/12/2024 2:44 PM CDT [facility] RBC 4.54 4.40 - 5.80 10(6)/mcL 01/12/2024 2:44 PM CDT [facility] HEMOGLOBIN (HGB) 13.2 13.0 - 16.5 g/dL 01/12/2024 2:44 PM CDT [facility] HEMATOCRIT (HCT) 40.3 38.0 - 50.0 % 01/12/2024 2:44 PM CDT [facility] MCV 88.8 82.0 - 96.0 fL 01/12/2024 2:44 PM CDT [facility] MCH 29.1 26.0 - 32.0 pg 01/12/2024 2:44 PM CDT [facility] MCHC 32.8 31.0 - 36.0 g/dL 01/12/2024 2:44 PM CDT [facility] PLATELET COUNT 17(LL) 140 - 440 10(3)/mcL 01/12/2024 2:44 PM CDT [facility] Comment:Slight platelet clum ping seen on peripheral smear; Results may be affected. RDW 18.0(H) 11.8 - 15.5 % 01/12/2024 2:44 PM CDT [facility] MPV 01/12/2024 2:44 PM CDT [facility] NEUTROPHILS 71.1(H) 40.0 - 68.0 % 01/12/2024 2:44 PM CDT [facility] LYMPHOCYTES 18.7(L) 19.0 - 49.0 % 01/12/2024 2:44 PM CDT [facility] MONOCYTES 9.7 3.0 - 13.0 % 01/12/2024 2:44 PM CDT [facility] EOSINOPHILS 0.0 0.0 - 8.0 % 01/12/2024 2:44 PM CDT [facility] BASOPHILS 0.5 0.0 - 1.0 % 01/12/2024 2:44 PM CDT [facility] ABSOLUTE NEUTROPHILS 5.73(H) 1.40 - 5.30 10(3)/mcL 01/12/2024 2:44 PM CDT [facility] ABSOLUTE LYMPHOCYTES 1.51 0.90 - 3.30 10(3)/[facility] 01/12/2024 2:44 PM CDT [facility] ABSOLUTE MONOCYTES 0.78 0.10 - 0.90 10(3)/mcL 01/12/2024 2:44 PM CDT [facility] ABSOLUTE EOSINOPHIL 0.00 0.00 - 0.50 10(3)/[facility] 01/12/2024 2:44 PM CDT [facility] ABSOLUTE BASOPHILS 0.04 0.00 - 0.10 10(3)/[facility] 01/12/2024 2:44 PM CDT [facility] NRBC PER 100 WBC 0 01/12/20 2:44 PM CDT [facility] RESULTS ARE CONSISTENT WITH PERIPHERAL SMEAR REVIEW Yes 01/12/2024 2:44 PM CDT [facility] LARGE PLATELETS 1+ 2:44 PM CDT [facility] Blood Venipuncture / Unknown 01/12/2024 11:38 AM CDT 01/12/2024 11:38 AM CDT Michael Ahmadi MD HEMATOLOGY ORDERABLES Fi nal Result [facility] [address] [place] [address] * IRON,TRANSFERN,CALC.TIBC,%SAT (01/12/2024 11:38 AM CDT) IRON 65 31 - 144 mcg/dL 01/12/2024 2:27 PM CDT [facility] TRANSFERRIN 216 163 - 344 mg/dL 01/12/2024 2:27 PM CDT [facility] TIBC, CALCULATED 270 261 - 462 mcg/dL 01/12/2024 2:27 PM CDT [facility] % SATURATION * 24 15 - 62 % 01/12/2024 2:27 PM CDT [facility] Blood Venipuncture / Unknown 01/12/2024 11:38 AM CDT 01/12/2024 11:38 AM CDT Michael Ahmadi MD CHEMISTRY ORDERABLES Fin al Result Performing Organization Address City/[facility]/ZIP Co de Phone Number [facility] [address] [place] [address] * (ABNORMAL) FERRITIN (01/12/2024 11:38 AM CDT) FERRITIN 334(H) 22 - 274 ng/mL 01/12/2024 2:42 PM CDT [facility] Blood Venipuncture / Unknown 01/12/2024 11:38 AM CDT 01/12/2024 11:38 AM CDT Michael Ahmadi MD CHEMISTRY ORDERABLES Fin al Result [facility] [address] [place] [address] * (ABNORMAL) CMP (COMPREHENSIVE METABOLIC PANEL) (01/12/2024 11:38 AM CDT) SODIUM 139 136 - 145 mmol/L 01/12/2024 2:27 PM CDT [facility] POTASSIUM 4.1 3.5 - 5.1 mmol/L 01/12/2024 2:27 PM CDT [facility] CHLORIDE 108(H) 98 - 107 mmol/L 01/12/2024 2:27 PM CDT [facility] CO2, VENOUS 20(L) 22 - 30 mmol/L 01/12/2024 2:27 PM CDT [facility] ANION GAP 15.1 <18.0 mmol/L 01/12/2024 2:27 PM CDT [facility] GLUCOSE 132(H) 70 - 99 mg/dL 01/12/2024 2:27 PM CDT [facility] BUN 14 8 - 26 mg/dL 01/12/2024 2:27 PM CDT [facility] CREATININE, BLOOD 0.95 0.70 - 1.30 mg/dL 01/12/2024 2:27 PM CDT [facility] BUN/CREATININE RATIO 15 12 - 20 ratio 01/12/2024 2:27 PM CDT [facility] TOTAL PROTEIN 6.9 6.3 - 8.2 g/dL 01/12/2024 2:27 PM CDT [facility] ALBUMIN 4.1 3.5 - 5.0 g/dL 01/12/2024 2:27 PM CDT [facility] A/G RATIO 1.5 1.0 - 2.2 01/12/2024 2:27 PM CDT [facility] CALCIUM 9.3 8.7 - 10.5 mg/dL 01/12/2024 2:27 PM CDT [facility] T BILI 0.3 0.2 - 1.2 mg/dL 01/12/2024 2:27 PM CDT [facility] SGOT (AST) 13 5 - 34 U/L 01/12/2024 2:27 PM CDT [facility] SGPT (ALT) 14 0 - 55 U/L 01/12/2024 2:27 PM CDT [facility] ALKALINE PHOSPHATASE 86 40 - 150 U/L 01/12/2024 2:27 PM CDT [facility] IS THE PATIENT REQUIRED TO BE FASTING? No 01/12/2024 2:27 PM CDT [facility] GFR, ESTIMATED >60 >=60 01/12/2024 2:27 PM CDT [facility] Comment: Creatinine Clearance is the preferred criteria for selecting drug dose adjustments in renally impaired patients. ??The GFR is provided as additional pertinent clinical information. GFR is reported in mL/min/1.73 sq m. Calculation based on the Chronic Kidney Disease Epidemiology Collaboration (CKD- EPI) equation refit without adjustment for race. GFR, EST. >60 >=60 024 2:27 PM CDT [facility] GFR, EST. NONAFRICAN >60 >=60 01/12/2024 2:27 PM CDT [facility] Blood Venipuncture / Unknown 01/12/2024 11:38 AM CDT 01/12/2024 11:38 AM CDT Michael Ahmadi MD CHEMISTRY ORDERABLES Fin al Result [facility] [address] [place] [address] documented in this encounter Visit Diagnoses Diagnosis Thrombocytopenia (HCC) Thrombocytopenia, unspecified Iron deficiency Other disorders of iron metabolism Anemia, unspecified type Iron deficiency anemia due to sideropenic dysphagia documented in this encounter Additional Health Concerns Assessment Noted Time PHQ-9 Depression Total Score: 0 08/14/19 24 3:02 PM ROLLER CLEANER documented as of this encounter Care Teams Cilnical Scientist Relationship Specialty Start Date End Date Irving Jeffries MD [address] [place] [address] PCP - General Internal Medicine 07/16/21 07/04/24 Ton Ling COLOR RECEIVER, CONTRACT RUNNER [address] [place] [address] Nurse Practitioner Advanced Practice Nurse 04/24/23 Ame Scanlon COLOR RECEIVER, CONTRACT RUNNER #2 [facility] [address] [place] [address] Nurse Practitioner Cardiology 08/23/23 Michael Ahmadi MD [address] [place] [address] Consulting Physician Medical Oncology 07/26/23 documented as of this encounter
--- OUTSIDE RECORDS SUMMARY | 2024-07-28 14:06 | XMS_ITS | Encounter Summary ---
Author Organization [employer] Care Team Providers Care Pyrometallurgical Engineer Name Role Phone Irving Jeffries MD Primary Care Provider [phone] Ton Ling APRN, NODULIZER Unavailable [phone] Ame Scanlon APRN, NODULIZER Unavailable + [phone] Michael Ahmadi MD Unavailable [phone] Encounter Details Date Type Department Care Team (Latest Contact Info) Description 11/29/2023 Travel Social History Tobacco Use Types Packs/Day Years Used Date Smoking Tobacco: Former Cigarettes 2 20 Passive Smoke Exposure: Past Smokeless Tobacco: Never Alcohol Use Standard Drinks/Week Comments Not Currently 0 (1 standard drink = 0.6 oz pur e alcohol) [facility] Utilities Answer Date Recorded In the past 12 months has [employer], gas, oil, or water [employer] threatened to shut off services in your home? Patient declined 09/03/2023 Social Connection and Isolation Panel [NHANES] A nswer Date Recorded In a typical week, how many times do you talk on the phone with family, friends, or neighbors? Patient declined 09/03/2023 How often do you get togethe r with friends or relatives? Patient declined 09/03/2023 How often do you attend taoist or church serv ices? Patient declined 09/03/2023 Do you belong to any clubs o r organizations such as taoist groups, unions, fraternal or athletic groups, or [...] Total Score - Questions 1-9 0 07/31 [facility] of Occupat ional [facility] - Occupational Stress Questionnaire Answer [...] place to sleep or slept in a usp (including now)? Patient declined 09/03/2023 Sexually Active [...] Depression Total Score: 0 08/14/19 3:02 PM WILDLIFE CONSERVATION OFFICER documented as of this encounter Care Teams Pyrometallurgical Engineer Relationship Specialty Start Date End Date Irving Jeffries MD [address] [place] [address] PCP - General Internal Medicine 07/16/21 07/04/24 Ton Ling APRN, NODULIZER [address] [place] [address] Nurse Practitioner Advanced Practice Nurse 04/24/23 Ame Scanlon APRN, NODULIZER #2 [facility], [address] [place] [address] Nurse Practitioner Cardiology 08/23/23 Michael Ahmadi MD [address] [place] [address] Consulting Physician Medical Oncology 07/26/23 documented as of this encounter
--- OUTSIDE RECORDS SUMMARY | 2024-07-28 14:06 | XMS_ITS | Encounter Summary ---
Author Organization [facility] Address [address] [place] [address] Phone Care Team Providers Care Rn X Ray Name Role Phone Irivng Jeffries MD Primary Care Provider Ton Ling DRAG OUT WORKER, INTELLIGENCE SENIOR SERGEANT Unavailable Ame Scanlon DRAG OUT WORKER, INTELLIGENCE SENIOR SERGEANT Unavailable Michael Ahmadi MD Unavailable Reason for Visit * Reason Comments 6 week f/u Encounter Details Date Type Department Care Team (Latest Contact Info) Description 02/29/2024 9:20 AM CDT Office Visit [facility] Oncology Services [address] [place] [id number] Michael Ahmadi MD [address] [place] [address] Chronic ITP (idiopathic thrombocytopenia) (HCC) (Primary Dx); Chronic undifferentiated schizophrenia (HCC) Discharge Disposition: Discharged to home or Selfcare Social History Tobacco Use Types Packs/Day Years Used Date Smoking Tobacco: Former Cigarettes 2 20 Passive Smoke Exposure: Past Smokeless Tobacco: Never Tobacco Cessation:Counseling Given: Not Answered Alcohol Use Standard Drinks/Week Comments Not Currently 0 (1 standard drink = 0.6 oz pur e alcohol) [facility] Utilities Answer Date Recorded In the past 12 months has th e electric, gas, oil, or water [facility] threatened to shut off services in your home? Patient declined 09/03/2023 Social Connection and Isolation Panel [NHANES] A nswer Date Recorded In a typical week, how many times do you talk on the phone with family, friends, or neighbors? Patient declined 09/03/2023 How often do you get togethe r with friends or relatives? Patient declined 09/03/2023 How often do you attend restoration or anabaptism serv ices? Patient declined 09/03/2023 Do you belong to any clubs o r organizations such as restoration groups, unions, fraternal or athletic groups, or [...] - Questions 1-9 0 07/31 [facility]at ional [facility] - Occupational [...] Sign Reading Time Taken Comments Blood Pressure 126/62 02/29/2024 10:01 AM CDT Pulse 71 02/29/2024 10:01 AM CDT Temperature 36.2 ??C (97.1 ??F) 02/29/2024 10:01 AM C DT Respiratory Rate 20 02/29/2024 10:01 AM CDT Oxygen Saturation 98% 02/29/2024 10:01 AM CDT Inhaled Oxygen Concentration - - Weight 88.5 kg (195 lb) 02/29/2024 10:01 AM CDT Height 182.9 cm (6') 02/29/2024 10:01 AM CDT Body Mass Index 26.45 02/29/2024 10:01 AM CDT documented in this encounter Progress Notes * Michael Ahmadi MD - 02/29/2024 9:20 AM CDT Outpatient Hem/Onc Progress Note Interval history: Iván Dumont is a 78 y.o. male seen today for follow up of severe thrombocytopenia. Patient requests to be called Norberto. Norberto is here today accompanied by Yannick living adjacent to facility for support. Norberto's PLT level was 17K on 01/12/24. We gave him 4 days of dexamethasone in December. Unfortunately l abs couple of days later showed platelet count still was 17 K. Norberto completed BMBX on 09/22/23 with normo-cellular marrow with absent iron stores. Norberto reports appetite remains stable with ability to tolerate wide variety of foods. He reports remaining active by walking in neighborhood and doing PT exercises. Norberto denies any current urinary retention, hematuria, or dysuria. Denies fevers, chills, cough, or other signs of infection. Took dex 40 mg po daily for 4 days 01/15/24. Labs on 01/31/24- PLT 17K Today his PLt are 37K He has not been on anticoagulation ever since his platelet count dropped less than 50 K. Reviewed patients past medical, surgical, social, and family history. Outpatient Medications Marked as Taking for the 02/29/24 encounter (Office Visit) with Michael Ahmadi MD Medication Sig Dispense Refill amLODIPine (NORVASC) 10 MG Tablet Take 1 Tablet by mouth daily. 30 Tablet 11 cloZAPine (CLOZARIL) 25 MG Tablet Take 50 mg by mouth nightly. Clozapine 50 MG Tablet dexamethasone (DECADRON) 4 MG Tablet Take 5 tabs PO BID for 4 days 40 Tablet 0 finasteride (PROSCAR) 5 MG Tablet metoprolol tartrate [...] (FLOMAX) 0.4 MG Capsule Allergies as of 02/29/2024 (No Known Allergies) REVIEW OF SYSTEMS ROS [...] 02/29/2024 Lab Results Component Value Date SODIUM 139 [...] IRONSATURATI 24 01/12/2024 FERRITIN 334 (H) 01/12/2024 [id number] 03/15/2023 DIAGNOSTIC IMAGING STUDIES: 07/29/23 CT [...] likely related to BPH Plan: 1. Reviewed above clinical data including recent symptoms, labs, imaging and pathology results withpatient and family. Made them aware of recent CBC showing PLT count dropped to around 37K. Did not get any sustained response from steroids. Hence we will start him on second-line of therapy for ITP with TPO agonist Promacta. We will start with a dose of 50 mg p.o. daily. Increase to 75 mg p.o. daily as needed to bring his platelet count over 50 K. reviewed common and uncommon side effects of this medication. Patient agreeable and so is his ict support engineer. 2. Repeat CBC and CMP in 5 weeks. 4. HOLD ALL ANTICOAGULANTS to prevent recurrent [...] for management of chronic medical conditions. Encouraged Norbetro to remain active with walking around neighborhood and PT exercises as directed after recent hospital admission. Follow up in 5-6 weeks with labs same day-Labs: CBC, CMP The patient was given an opportunity to ask questions, and all questions answered to patient's satisfaction. Patient verbalizes understanding of the plan as outlined above. 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, chronic condition documented in this encounter Additional Health Concerns Assessment Noted Time PHQ-9 Depression Total Score: 0 08/14/19 3:02 PM TRACTOR TRAILER TECHNICIAN documented as of this encounter Care Teams Rn X Ray Relationship Specialty Start Date End Date Irving Jeffries MD [address] [place] [address] PCP - General Internal Medicine 07/16/21 07/04/24 Ton Ling APRN, INTELLIGENCE SENIOR SERGEANT [address] [place] [address] Nurse Practitioner Advanced Practice Nurse 04/24/23 Ame Scanlon APRN, INTELLIGENCE SENIOR SERGEANT #2 [facility] [address] [place] [address] Nurse Practitioner Cardiology 08/23/23 Michael Ahmadi MD [address] [place] [address] Consulting Physician Medical Oncology 07/26/23 documented as of this encounter
--- OUTSIDE RECORDS SUMMARY | 2024-07-28 14:06 | XMS_ITS | Encounter Summary ---
Author Organization [facility] Address [address] [facility] [place] [address] Phone Care Team Providers Care Hazardous Substances Engineer Name Role Phone Irving Jeffries MD Primary Care Provider Ton Ling ELECTRIC ORGAN INSPECTOR AND REPAIRER, TELEVISION WRITER Unavailable Ame Scanlon ELECTRIC ORGAN INSPECTOR AND REPAIRER, TELEVISION WRITER Unavailable Michael Ahmadi MD Unavailable Encounter Details Date Type Department Care Team (Late st Contact Info) Description 01/17/2024 10:20 AM CDT Lab [facility] Oncology Services [address] [place] [phone] Michael Ahmadi MD [address] [place] [address] Thrombocytopenia (HCC) Discharge Disposition: Discharged to home or Selfcare Social History Tobacco Use Types Packs/Day Years Used Date Smoking Tobacco: Former Cigarettes 2 20 Passive Smoke Exposure: Past Smokeless Tobacco: Never Alcohol Use Standard Drinks/Week Comments Not Currently 0 (1 standard drink = 0.6 oz pur e alcohol) [facility] Utilities Answer Date Recorded In the past 12 months has [employer] electric, gas, oil, or water company threatened [...] declined 09/03/2023 How often do you attend buddhism or alevism serv ices? Patient declined 09/03/2023 Do you belong to any clubs o r organizations such as buddhism groups, unions, fraternal or athletic groups, or [...] Total Score - Questions 1-9 0 07/31 [facility] of Occupat ional [facility] - Occupational Stress Questionnaire Answer Date Recorded [...] Notes * Sister Daniela Pedroza RN - 01/17/2024 10:20 AM CDT Patient arrived to lab room. Labs obtained per orders via venipuncture. Site covered with gauze andcoban. Patient left lab room in stable condition for follow up with provider. documented in this encounter Plan of Treatment Not on file documented as of this encounter Procedures Procedure Name Priority Date/Time Associated Diagnosis Comments CBC WITH AUTO DIFFERENTIAL Routine 01/17/2024 10:18 AM CDT Thrombocytopenia (HCC) COMPLETE BLOOD COUNT (CBC) WITH DIFF Routine 01/17/2024 10:18 AM CDT Thrombocytopenia (HCC) documented in this encounter Results * (ABNORMAL) CBC WITH AUTO DIFFERENTIAL (01/17/2024 10:18 AM CDT) WBC 8.56 4.00 - 12.00 10(3)/[facility] 01/17/2024 10:56 AM CDT [facility] RBC 4.47 4.40 - 5.80 10(6)/[facility] 01/17/2024 10:56 AM CDT [facility] HEMOGLOBIN (HGB) 13.3 13.0 - 16.5 g/dL 01/17/2024 10:56 AM CDT [facility] HEMATOCRIT (HCT) 39.7 38.0 - 50.0 % 01/17/2024 10:56 AM CDT [facility] MCV 88.8 82.0 - 96.0 fL 01/17/2024 10:56 AM CDT [facility] MCH 29.8 26.0 - 32.0 pg 01/17/2024 10:56 AM CDT [facility] MCHC 33.5 31.0 - 36.0 g/dL 01/17/2024 10:56 AM CDT [facility] PLATELET COUNT 34(L) 140 - 440 10(3)/[facility] 01/17/2024 10:56 AM CDT [facility] RDW 17.6(H) 11.8 - 15.5 % 01/17/2024 10:56 AM CDT [facility] MPV 01/17/2024 10:56 AM CDT [facility] NEUTROPHILS 66.3 40.0 - 68.0 % 01/17/2024 10:56 AM CDT [facility] LYMPHOCYTES 18.1(L) 19.0 - 49.0 % 01/17/2024 10:56 AM CDT [facility] MONOCYTES 15.0(H) 3.0 - 13.0 % 01/17/2024 10:56 AM CDT [facility] EOSINOPHILS 0.0 0.0 - 8.0 % 01/17/2024 10:56 AM CDT [facility] BASOPHILS 0.6 0.0 - 1.0 % 01/17/2024 10:56 AM CDT [facility] ABSOLUTE NEUTROPHILS 5.68(H) 1.40 - 5.30 10(3)/[facility] 01/17/2024 10:56 AM CDT [facility] ABSOLUTE LYMPHOCYTES 1.55 0.90 - 3.30 10(3)/[facility] 01/17/2024 10:56 AM CDT [facility] ABSOLUTE MONOCYTES 1.28(H) 0.10 - 0.90 10(3)/[facility] 01/17/2024 10:56 AM CDT [facility] ABSOLUTE EOSINOPHIL 0.00 0.00 - 0.50 10(3)/[facility] 01/17/2024 10:56 AM CDT [facility] ABSOLUTE BASOPHILS 0.05 0.00 - 0.10 10(3)/[facility] 01/17/2024 10:56 AM CDT [facility] NRBC PER 100 WBC 0 01/17/20 24 10:56 AM CDT [facility] RESULTS ARE CONSISTENT WITH PERIPHERAL SMEAR REVIEW Yes 01/17/2024 10:56 AM CDT [facility] GIANT PLATELETS 1+ 4 10:56 AM CDT [facility] LARGE PLATELETS 1+ 4 10:56 AM CDT [facility] Blood Venipuncture / Unknown 01/17/2024 10:18 AM CDT 01/17/2024 10:18 AM CDT Gilda Hagen PAC HEMATOLOGY ORDERABLES Fin al Result [facility] [address] [place] [address] documented in this encounter Visit Diagnoses Diagnosis Thrombocytopenia (HCC) Thrombocytopenia, unspecified documented in this encounter Additional Health Concerns Assessment Noted Time PHQ-9 Depression Total Score: 0 08/14/19 24 3:02 PM MEAT COUNTER WORKER documented as of this encounter Care Teams Hazardous Substances Engineer Relationship Specialty Start Date End Date Irving Jeffries MD [address] [place] [address] PCP - General Internal Medicine 07/16/21 07/04/24 Ton Ling APRN, TELEVISION WRITER [address] [place] [address] Nurse Practitioner Advanced Practice Nurse 04/24/23 Ame Scanlon APRN, TELEVISION WRITER #2 [facility] [address] [place] [address] Nurse Practitioner Cardiology 08/23/23 Michael Ahmadi MD [address] [place] [address] Consulting Physician Medical Oncology 07/26/23 documented as of this encounter
--- OUTSIDE RECORDS SUMMARY | 2024-07-28 14:07 | XMS_ITS | Encounter Summary ---
Author Organization [facility] Address [address] [facility] [address] Phone Care Team Providers Care Casting Operator Helper Name Role Phone Irving Jeffries MD Primary Care Provider [phone] Ton Ling PROJECTION CAMERA OPERATOR, SUPERVISOR CLOTH WINDING Unavailable [phone] Ame Scanlon PROJECTION CAMERA OPERATOR, SUPERVISOR CLOTH WINDING Unavailable + [phone] Michael Ahmadi MD Unavailable [phone] Reason for Visit * Auth/Cert (Routine) Specialty Diagnoses / Procedures Referred By Geeta t Referred To Contact Referral ID Status Reason Start Date Expiration Date Visits Re quested Visits Authorized [id number] 1 1 Encounter Details Date Type Department Care Team (Late st Contact Info) Description 09/19/2023 [facility] [address] [place] [address] Sophy Otto, PT PT - DISCHARGE SUMMARY Social History Tobacco Use Types Packs/Day Years Used Date Smoking Tobacco: Former Cigarettes 2 20 Passive Smoke Exposure: Past Smokeless Tobacco: Never Alcohol Use Standard Drinks/Week Comments Not Currently 0 (1 standard drink = 0.6 oz pur e alcohol) [facility] Utilities Answer Date Recorded In [...] How often do you attend hindu or mandaeism serv ices? Patient declined 09/03/2023 [...] 0 07/31 [facility] - Occupational Stress Questionnaire Answer Date [...] Total Score: 0 08/14/19 24 3:02 PM HONING MACHINE SET UP OPERATOR documented as of this encounter Home Health Visit - Care Plan Visit Details Visit Type -PT - Discharge S delfina Discipline -Physical Therapy Problems Problem Description Start Date Status Goals Interve ntions THERAPY DISEASE MANAGEMENT (O) Disciplines: Physical Therapy 08/10/2023 Resolved on 09/19/2023 - 1 problem intervention scheduled/document ed in this visit PT COMPREHENSIVE Disciplines: Physical Therapy 08/10/2023 Resolved on 09/19/2023 4 goals linked to scheduled/document ed interventions PT COMPREHENSIVE Disciplines: Physical Therapy 08/28/2023 Resolved on 09/19/2023 1 goal linked to scheduled/document ed intervention Goals Goal Associated Problem Outcome Goal Met? Visit Notes PT Balance Description: Fpc Goal: Patient will show improved dynamic standing balance as demonstrated by improved Tinetti score from 21/28 to 23/28 in order to lower risk for falls. To be met by 09/22/23. PT COMPREHENSIVE Therapy: Goal met Yes PT Caregiver Assist/Safety Description: Short Term Goal: Caregiver will be able to safely demonstrate patient assistance with home exercise program, transfers, ambulation and stair negotiation in order to prevent falls. To be met by 09/22/23. PT COMPREHENSIVE Therapy: Goal met Yes PT Ambulation Description: Gastroenterology Nurse Practitioner Goal: Patient will ambulate independently 150 feet with use of AD prn over even surfaces or uneven surfaces with the following improved gait characteristics no pathway deviations in order to safely leave home for appointments. To be met by 09/22/23. PT COMPREHENSIVE Therapy: Goal met Yes PT HEP Description: Fpc Goal: Patient and/or caregiver will require min assist with final HEP of strengthening, balance training and conditioning in order to continue preventing functional decline after discharge from home care. To be met by 09/22/23. PT COMPREHENSIVE Therapy: Goal met Yes PT Stairs and Home Exit Description: Gastroenterology Nurse Practitioner Goal: Patient will be independent on entry steps with use of HR/AD prn while maintaining ordered precautions to allow for ability to to enter/exit home for appts . To be met by 09/22/23. PT COMPREHENSIVE Therapy: Goal met Yes Interventions Intervention Associated Problem/Goal Status Variance Visit Notes Therapy Depression (O) Description: Assess and monitor for signs and symptoms of depression. Problem:THERAPY DISEASE MANAGEMENT (O) Scheduled with variance Not addressed at this visit documented in this encounter Care Teams Casting Operator Helper Relationship Specialty Start Date End Date Irving Jeffries MD [address] [place] [address] PCP - General Internal Medicine 07/16/21 07/04/24 Ton Ling APRN, SUPERVISOR CLOTH WINDING [address] [place] [address] Nurse Practitioner Advanced Practice Nurse 04/24/23 Ame Scanlon APRN, SUPERVISOR CLOTH WINDING #2 [facility] [address] [place] [address] Nurse Practitioner Cardiology 08/23/23 Michael Ahmadi MD [address] [place] [address] Consulting Physician Medical Oncology 07/26/23 documented as of this encounter
--- OUTSIDE RECORDS SUMMARY | 2024-07-28 14:07 | XMS_ITS | Encounter Summary ---
Author Organization [facility] Address [address] [address] Phone Care Team Providers Care Varnish Supervisor Name Role Phone Irving Jeffries MD Primary Care Provider [phone] Ton Ling SALES ORDER PROCESSOR, MANAGER SPECIAL EVENTS Unavailable Ame Scanlon SALES ORDER PROCESSOR, MANAGER SPECIAL EVENTS Unavailable + [phone] Michael Ahmadi MD Unavailable Reason for Visit * Auth/Cert (Routine) Specialty Diagnoses / Procedures Referred By Geeta t Referred To Contact Referral ID Status Reason Start Date Expiration Date Visits Re quested Visits Authorized [id number] 1 1 Encounter Details Date Type Department Care Team (Late st Contact Info) Description 08/25/2023 1:00 PM MEDICAL MALPRACTICE PARALEGAL [facility] [address] [place] [address] Mere Puckett, GINNER PT - HOME VISIT Social History Tobacco Use Types Packs/Day Years Used Date Smoking Tobacco: Former Cigarettes 2 20 Passive Smoke Exposure: Past Smokeless Tobacco: Never Alcohol Use Standard Drinks/Week Comments Not Currently 0 (1 standard drink = 0.6 oz pur e alcohol) [facility] Utilities Answer Date Recorded In the past 12 months has e electric, gas, oil, or water company threatened to shut off services in your home? Patient unable to answer 08/14/2023 Social Connection and Isolation Panel [NHANES] A nswer Date Recorded In a typical week, how many times do you talk on the phone with family, friends, or neighbors? Patient unable to answer 08/14/2023 How often do you get togethe r with friends or relatives? Patient unable to answer 08/14/2023 How often do you attend chur or presybeterian services? Patient unable to answer 08/14/2023 Do you belong to any clubs o r organizations such as christianity groups, unions, fraternal or athletic groups, or school groups? Patient unable to answer 08/14/2023 How often do you attend meet ings of the clubs or organizations you belong to? Patient unable to answer 08/14/2023 Are you , , di vorced, , never , or living with a partner? Patient unable to answer 08/14/2023 AUDIT-C Answer Date Recorded Q1: How often do you have a drink containing alcohol? Patient unable to answer 08/14/2023 Q2: How many drinks containi ng alcohol do you have on a typical day when you are drinking? Patient unable to answer Q3: How often do you have si x or more drinks on one occasion? Patient unable to answer 08/14/2023 Overall Financial Resource Strain (CARDIA) Answe r Date Recorded How hard is it for you to pa y for the very basics like food, housing, medical care, and heating? Patient unable to answer 08/14/2023 PHQ-2 Answer Date Recorded Total Score - Questions 1-9 0 07/31 [facility] - Occupational Stress Questionnaire Answer Date Recorded Do you feel stress - tense, restless, nervous, or anxious, or unable to sleep at night because your mind is troubled all the time - these days? Patient unable to answer 08/14/2023 Exercise Vital Sign Answer Date Recorde d On average, how many days pe r week do you engage in moderate to strenuous exercise (like a brisk walk)? Patient unable to answer 08/14/2023 On average, how many minutes do you engage in exercise at this level? Patient unable to answer 08/14/2023 Hunger Vital Sign Answer Date Recorded Within the past 12 months, y ou worried that your food would run out before you got the money to buy more. Patient unable to answer 08/14/2023 Within the past 12 months, t he food you bought just didn't last and you didn't have money to get more. Patient unable to answer 08/14/2023 PRAPARE - Transportation Answer Date Re corded In the past 12 months, has l ack of transportation kept you from medical appointments or from getting medications? Patient unable to answer 08/14/2023 In the past 12 months, has l ack of transportation kept you from meetings, work, or from getting things needed for daily living? Patient unable to answer 08/14/2023 Housing Stability Vital Sign Answer Matt e Recorded In the last 12 months, was t here a time when you were not able to pay the mortgage or rent on time? Patient unable to answer 08/14/2023 In the last 12 months, how m any places have you lived? 1 08/14/2023 In the last 12 months, was t here a time when you did not have a steady place to sleep or slept in a prison (including now)? Patient unable to answer 08/14/2023 Sexually Active Control Partners Comments Never Sex and Gender Information Value Date Recorded Sex Assigned at Not on file Legal Sex Male 11:18 PM CDT Gender Identity Not on file Sexual Orientation Not on file documented as of this encounter Last Filed Vital Signs Vital Sign Reading Time Taken Comments Blood Pressure 116/75 08/25/2023 1:52 PM MEDICAL MALPRACTICE PARALEGAL Pulse 79 08/25/2023 1:52 PM MEDICAL MALPRACTICE PARALEGAL Temperature 36.7 ??C (98 ??F) 08/25/2023 1:52 PM MEDICAL MALPRACTICE PARALEGAL Respiratory Rate 18 08/25/2023 1:52 PM MEDICAL MALPRACTICE PARALEGAL Oxygen Saturation 98% 08/25/2023 1:52 PM MEDICAL MALPRACTICE PARALEGAL Inhaled Oxygen Concentration - - Weight - - Height - - Body Mass Index - - documented in this encounter Plan of Treatment Not on file documented as of this encounter Visit Diagnoses Not on filedocumented in this encounter Additional Health Concerns 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 07/28/2023 09/04/2023 8:45 AM MEDICAL MALPRACTICE PARALEGAL Assessment Noted Time PHQ-9 Depression Total Score: 0 08/14/19 24 3:02 PM MEDICAL MALPRACTICE PARALEGAL documented as of this encounter Home Health Visit - Care Plan Visit Details Visit Type -PT - HOME VISIT Discipline -Physical Therapy Problems Problem Description Start Date Status Goals Interve ntions THERAPY DISEASE MANAGEMENT (O) Disciplines: Physical Therapy 08/10/2023 Active - 1 problem intervention scheduled/document ed in this visit PT DISCHARGE/REASS ESSMENT Disciplines: Physical Therapy PT Discharge 08/10/2023 Active - 1 problem intervention scheduled/document ed in this visit PT COMPREHENSIVE Disciplines: Physical Therapy 08/10/2023 Active 3 goals linked to scheduled/document ed interventions 3 goal interventions scheduled/document ed in this visit Goals Goal Associated Problem Outcome Goal Met? Visit Notes PT Caregiver Assist/Safety Description: Short Term Goal: Caregiver will be able to safely demonstrate patient assistance with home exercise program, transfers, ambulation and stair negotiation in order to prevent falls. To be met by 09/16/23. PT COMPREHENSIVE Therapy: Goal partially met No Staff Lenora reports patient is staying out of bed more and moving around more this week with encouragement to do so PT Ambulation Description: Short Term Goal: Patient will ambulate with supervision 100 feet with use of 2 wheel walker, over even surfaces with the following improved gait characteristics no loss of balance in order to safely leave home for appointments. To be met by 08/31/23. Usp Goal: Patient will ambulate independently 150 feet with use of straight cane, over even surfaces and uneven surfaces with the following improved gait characteristics no loss of balance in order to safely leave home for appointments. To be met by 09/16/23. PT COMPREHENSIVE Therapy: Goal partially met No No device used, fast impulsive pace but no falls reported and caregivers report this is his baseline PT Transfers Description: Usp Goal: Patient will perform sit to stand/pivot transfers independently with use of device as needed ; in order to be safe in home. To be met by 09/16/23. PT COMPREHENSIVE Therapy: Goal partially met No Interventions Intervention Associated Problem/Goal Status Variance Visit Notes Therapy Depression (O) Description: Assess and monitor for signs and symptoms of depression. Problem:THERAPY DISEASE MANAGEMENT (O) Completed Patient shows signs of depression yes Symptoms reported to physician no Dr aware of situation Notice Of Discharge Description: Complete Notice of Discharge documentation three days prior to agency discharge Problem:PT DISCHARGE/REASSESSMEN T Completed Notice of discharge signed by Patient and Caregiver Lenora. Agrees with plan for discharge on date. Dr. Jeffries notified via CC note and agrees with discharge plan. PT Caregiver Assist/Safety Description: Instruct caregiver how to safely assist patient. Problem:PT COMPREHENSIVE Goal:PT Caregiver Assist/Safety Completed Caregiver training provided to [place] regarding: ambulation -instruct patient to use walker or cane if unsteadiness returns or knee pain on right Caregiver response to training: verbalize understanding. Progress toward goal: met PT Ambulation Description: Provide gait training for increased safety and efficiency. Progress per patient tolerance and safety. Problem:PT COMPREHENSIVE Goal:PT Ambulation Completed Patient ambulated with supervision 200 feet with use of no device. WBAT bilateral lower extremity over even surfaces with the following gait characteristics fast pacing, holding rail in hallway, right knee genu valgus. No balance losses and denies pain or SOB. Skills provided: Safety instruction use cane or walker if unsteady or right knee pain . Tolerance to activity increased gait distance and decreased assistance required. Instruction provided to Patient. Response verbalize understanding and return demonstration. Progress toward goal: met PT Transfers Description: Instruct in proper safety and transfer technique. Problem:PT COMPREHENSIVE Goal:PT Transfers Completed Transfer training provided this date Sit to/from stand . Level of support required for safety independently. Assistive devices used: none Skill provided Safety instructions use walker or cane as needed for unsteadiness. Tolerance to activity good Instruction provided to Patient. Response return demonstration. Progress toward goal: met documented in this encounter Care Teams Varnish Supervisor Relationship Specialty Start Date End Date Irving Jeffries MD [address] [place] [address] PCP - General Internal Medicine 07/16/21 07/04/24 Ton Ling APRN, MANAGER SPECIAL EVENTS [address] [place] [address] Nurse Practitioner Advanced Practice Nurse 04/24/23 Ame Scanlon APRN, MANAGER SPECIAL EVENTS #2 [facility] [address] [place] [address] Nurse Practitioner Cardiology 08/23/23 Michael Ahmadi MD [address] [place] [address] Consulting Physician Medical Oncology 07/26/23 documented as of this encounter
--- OUTSIDE RECORDS SUMMARY | 2024-07-28 14:07 | XMS_ITS | Encounter Summary ---
Author Organization [employer] Care Team Providers Care Human Service Technician Name Role Phone Irving Jeffries MD Primary Care Provider [phone] Ton Ling APRN, IRRIGATOR SPRINKLING SYSTEM Unavailable [phone] Ame Scanlon APRN, IRRIGATOR SPRINKLING SYSTEM Unavailable + [phone] Michael Ahmadi MD Unavailable [phone] Encounter Details Date Type Department Care Team (Latest Contact Info) Description 09/19/2023 Travel Social History Tobacco Use Types Packs/Day Years Used Date Smoking Tobacco: Former Cigarettes 2 20 Passive Smoke Exposure: Past Smokeless Tobacco: Never Alcohol Use Standard Drinks/Week Comments Not Currently 0 (1 standard drink = 0.6 oz pur e alcohol) [facility] Utilities Answer Date Recorded In the past 12 months has [employer], gas, oil, or water [employer] threatened to shut off services in your home? Patient declined 09/03/2023 Social Connection and Isolation Panel [NHANES] A nswer Date Recorded In a typical week, how many times do you talk on the phone with family, friends, or neighbors? Patient declined 09/03/2023 How often do you get togethe r with friends or relatives? Patient declined 09/03/2023 How often do you attend pentecostalism or latter-day serv ices? Patient declined 09/03/2023 Do you [...] 0 07/31 [facility] - Occupational Stress Questionnaire Answer [...] Depression Total Score: 0 08/14/19 3:02 PM PHYSICIAN OFFICE NURSE documented as of this encounter Care Teams Human Service Technician Relationship Specialty Start Date End Date Irving Jeffries MD [address] [place] [address] PCP - General Internal Medicine 07/16/21 07/04/24 Ton Ling APRN, IRRIGATOR SPRINKLING SYSTEM [address] [place] [address] Nurse Practitioner Advanced Practice Nurse 04/24/23 Ame Scanlon APRN, IRRIGATOR SPRINKLING SYSTEM [address] [facility], [address] [place] [address] Nurse Practitioner Cardiology 08/23/23 Michael Ahmadi MD [address] [place] [address] Consulting Physician Medical Oncology 07/26/23 documented as of this encounter
--- OUTSIDE RECORDS SUMMARY | 2024-07-28 14:07 | XMS_ITS | Encounter Summary ---
Author Organization [facility] Address [address] [place] [address] Phone Care Team Providers Care Bed Manager Name Role Phone Irving Jeffries MD Primary Care Provider Ton Ling EXPERIMENTAL MECHANIC ELECTRICAL, SPECIAL EDUCATION SECRETARY Unavailable [phone] Ame Scanlon EXPERIMENTAL MECHANIC ELECTRICAL, SPECIAL EDUCATION SECRETARY Unavailable Michael Ahmadi MD Unavailable Reason for Visit * Auth/Cert (Routine) Specialty Diagnoses / Procedures Referred By Geeta t Referred To Contact Diagnoses THROMBOCYTOPENIA Procedures PRE / POST CARE FOR PROCEDURAL AREA Referral ID Status Reason Start Date Expiration Date Visits Re quested Visits Authorized [id number] 1 1 Encounter Details Date Type Department Care Team (Late st Contact Info) Description 09/22/2023 7:30 AM ORIENTATION AND MOBILITY INSTRUCTOR - 09/22/2023 8:00 AM ORIENTATION AND MOBILITY INSTRUCTOR Surgery [facility] Periop [address] [place] [id number] Provider, Not On File [place] PRE / POST CARE FOR PROCEDURAL AREA - BONE MARROW BIOPSY Surgery Details Date/Time Status Location OR Service Patient Class Case Class Case Type Trauma Case? 09/22/2023 7:30 AM Posted [facility] INVASIVE IMAGING [facility] IR 1 [facility] Ambulatory Surgery Elective /Schedul ed Panel 1 Procedure LRB Anes Op Region Wound Class Comments PRE / POST CARE FOR PROCEDURAL AREA - BONE MARROW BIOPSY N/A Moderate Conscious Sedation Surgeon Surgeon Role Service Panel Provider, Not On File Primary Radiology 1 documented in this encounter Social History Tobacco Use Types Packs/Day Years Used Date Smoking Tobacco: Former Cigarettes 2 20 Passive Smoke Exposure: Past Smokeless Tobacco: Never Alcohol Use Standard Drinks/Week Comments Not Currently 0 (1 standard drink = 0.6 oz pur e alcohol) [facility] Utilities Answer Date Recorded In the past [...] How often do you attend yazidi or yazidism serv ices? Patient declined 09/03/2023 [...] Total Score - Questions 1-9 0 07/31 [facility] [place] of Occupat ional Health - Occupational Stress [...] Sign Reading Time Taken Comments Blood Pressure 112/55 09/22/2023 6:40 AM ORIENTATION AND MOBILITY INSTRUCTOR Pulse 84 09/22/2023 6:40 AM ORIENTATION AND MOBILITY INSTRUCTOR Temperature 37.1 ??C (98.7 ??F) 09/22/2023 6:40 AM CS T Respiratory Rate 16 09/22/2023 6:40 AM ORIENTATION AND MOBILITY INSTRUCTOR Oxygen Saturation 98% 09/22/2023 6:40 AM ORIENTATION AND MOBILITY INSTRUCTOR Inhaled Oxygen Concentration - - Weight 84.9 kg (187 lb 3.2 oz) 09/22/2023 6:40 A M ORIENTATION AND MOBILITY INSTRUCTOR Height 182.9 cm (6') 09/22/2023 6:40 AM ORIENTATION AND MOBILITY INSTRUCTOR Body Mass Index 25.39 09/22/2023 6:40 AM ORIENTATION AND MOBILITY INSTRUCTOR documented in this encounter Medications at Time of Discharge acetaminophen (TYLENOL) 325 MG Tablet Take 2 Tablets by mouth every 6 hours as needed for Mild or more severe pain. cloZAPine (CLOZARIL) 25 MG Tablet Take 50 mg by mouth nightly. Clozapine 50 MG Tablet 09/07/2023 finasteride (PROSCAR) 5 MG Tablet 09/11/2023 sertraline (ZOLOFT) 50 MG Tablet Take 1 Tablet by mouth daily. tamsulosin (FLOMAX) 0.4 MG Capsule 09/11/2023 amLODIPine (NORVASC) 10 MG Tablet Take 1 Tablet by mouth daily. 30 Tablet 11 02/21/2023 4 cloZAPine (CLOZARIL) 100 MG Tablet Take 50 mg by mouth daily. 4 levoFLOXacin (LEVAQUIN) 750 MG Tablet [The details of the medication are not available because there are pending changes by a home health clinician.] 5 Tablet 09/05/2023 4 omeprazole (PriLOSEC) 20 MG CAPSULE DELAYED RELEASE Take 1 Capsule by mouth in the morning and at bedtime. 30 Capsule 7 07/14/2023 4 polyethylene glycol (GLYCOLAX, MIRALAX) 17 g PackIndications: Constipation Take 1 Packet by mouth 2 times daily as needed for Constipation - 1st line. Dissolve in 4-8 oz of liquid. Indications: Constipation 90 Packet 09/05/2023 4 senna (SENOKOT) 8.6 MG Tablet Take 1 Tablet by mouth daily. 30 Tablet 09/05/2023 4 Xarelto 15 MG Tablet 09/07/2023 4 documented as of this encounter Miscellaneous Notes * Interdisciplinary - Ameena Esquivel RN - 09/22/2023 9:43 AM CST Patient discharged at this time. Iv removed. Discharged instructions reviewed with patient. Questions addressed at this time. No distress noted. Dressing has minimal Drainage. NTATION AND MOBILITY INSTRUCTOR * Interdisciplinary - Ameena Esquivel RN - 09/22/2023 8:30 AM CST Patient returned to room at this time from IR. Patient on bedrest with bathroom privileges. Patientdeclining anything to eat. Continue plan of care at this time. NTATION AND MOBILITY INSTRUCTOR * Plan of Care - Ameena Esquivel RN - 09/22/2023 6:46 AM CST Problem: Adult Inpatient Plan of Care Goal: Plan of Care Review Outcome: Ongoing (see interventions/notes) Flowsheets (Taken 09/22/2023 0645) Today's Goal: discharge home today Outcome Evaluation: ready for procedure Goal: Patient-Specific Goal (Individualized) Outcome: Ongoing (see interventions/notes) Goal: Absence of Hospital-Acquired Illness or Injury Outcome: Ongoing (see interventions/notes) Goal: Optimal Comfort and Wellbeing Outcome: Ongoing (see interventions/notes) Goal: Readiness for Transition of Care Outcome: Ongoing (see interventions/notes) NTATION AND MOBILITY INSTRUCTOR documented in this encounter Plan of Treatment Not on file documented as of this encounter Procedures Procedure Name Priority Date/Time Associated Diagnosis Comments MYELODYSPLASTIC SYNDROME, DIAGNOSTIC FISH [place] MDSDF Routine 09/22/2023 8:00 AM ORIENTATION AND MOBILITY INSTRUCTOR CHROMOSOME ANALYSIS, HEMATOLOGICAL DISORDERS, BONE MARROW, [place] CHRBM Routine 09/22/2023 8:00 AM ORIENTATION AND MOBILITY INSTRUCTOR PRE / POST CARE FOR PROCEDURAL AREA 09/22/2023 7:30 AM ORIENTATION AND MOBILITY INSTRUCTOR THROMBOCYTOPENIA COMPLETE BLOOD COUNT (CBC) WITHOUT DIFF STAT 09/22/2023 6:40 AM ORIENTATION AND MOBILITY INSTRUCTOR documented in this encounter Results * MYELODYSPLASTIC SYNDROME, DIAGNOSTIC FISH [facility] (09/22/2023 8:00 AM ORIENTATION AND MOBILITY INSTRUCTOR) [facility] INTERPRETATION Test Not Performed 09/29/2023 1:03 PM ORIENTATION AND MOBILITY INSTRUCTOR [facility] Comment: MDS, Diagnostic FISH was cancelled on 09/29/2023 at 13:03; Based on other test results additional testing not required. MDS FISH order was cancelled per laboratory protocol (Abelardo damon al., Amer J Clin Pathol 146:86-94, 2016; [facility] MDS Algorithm: [email or web address]-[email or web address]/Myelodysplastic_S yndrome_Guideline_ to_Diagnosis_and_Follow-up.pdf) with Probes -RPN1(G)/MECOM(R), -TP53(R)/D17Z1(G), -D8Z2(G)/MYC(R), -J42L723(R)/20QTER(G), -D4S291(G)/EGR1(R), -D7Z1(G)/R1W637(R) Test Performed by: [place] [address] Household Worker: Sidney Wade M.D. Ph.D.; IA# [id number] Bone Marrow Non-Phlebotomy Collection / Unknown 09/22/2023 8:00 AM ORIENTATION AND MOBILITY INSTRUCTOR 09/22/2023 9:02 AM ORIENTATION AND MOBILITY INSTRUCTOR Michael Ahmadi MD LAB SEND OUT GENETIC Fin al Result [facility] * CHROMOSOME ANALYSIS, HEMATOLOGICAL DISORDERS, BONE MARROW, [facility] (09/22/2023 8:00 AM ORIENTATION AND MOBILITY INSTRUCTOR) [facility] RESULT SUMMARY See Interpretation 09/29/2023 11:34 AM [facility] INTERPRETATION SEE NOTE 09/29/2023 11:34 AM [facility] Comment: Of 20 metaphases, 9 metaphases were normal and 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 In adult males, the absence of a Y chromosome without any other abnormality in metaphases from bone marrow is likely age-related (Megan et al., Leuk Res 35:6689-8121, 2011). Since this conventional chromosome study was successful, MDS, Diag FISH was cancelled per lab protocol (Abelardo Nguyen al., AJCP, 146:86-94, 2016; [facility] MDS Algorithm: www.[employer].com/it-mmfiles/Myelodysplastic_Syndrome_G uideline_to_Diagnosis_and_Follow-up.pdf). CHRBM RESULT 45,X,-Y[11]/46,XY[ 9] 09/29/2023 11:34 AM [facility] CHRBM REASON FOR REFERRAL thrombocytopenia 09/29/2023 11:34 AM [facility] CHRBM SPECIMEN Bone Marrow 11:34 AM [facility] CHRBM METHOD Culture without mitogens 09/29/2023 11:34 AM [facility] CHRBM BANDING METHOD SEE NOTE 09/29/2023 11:34 AM [facility] Comment: Band Resolution: <400 Stain Name Cells ? Cells Counted Karyograms Prepared ?Analyzed ? GTL ?20 ?0 ? 2 ? Total ?20 ?0 ? 2 ? Rausch to Stain Name: GTL=G-banding; QFQ=Q-banding; DAPI=DAPI-staining; CBL=C-banding; AGNOR=Silver-staining; NON=Non-banded The sum of Cells Analyzed and Cells Counted equals the total cells examined. CHRBM ADDITIONAL INFORMATION SEE NOTE 09/29/2023 11:34 AM ORIENTATION AND MOBILITY INSTRUCTOR [facility] Comment: A portion of the testing process was performed at [facility] site [id number] and [id number]. CHRBM RELEASED BY Scott Aguilar M.D. 09/29/2023 11:34 AM [facility] Comment: Test Performed by: [facility] [place] [address] Household Worker: Sidney Wade M.D. Ph.D.; CLIA# [id number] Bone Marrow Non-Phlebotomy Collection / Unknown 09/22/2023 8:00 AM ORIENTATION AND MOBILITY INSTRUCTOR 09/22/2023 9:04 AM ORIENTATION AND MOBILITY INSTRUCTOR us Michael Ahmadi MD LAB SEND OUTS Final Re sult [facility] US * (ABNORMAL) Complete Blood Count (CBC) WITHOUT Diff (09/22/2023 6:40 AM ORIENTATION AND MOBILITY INSTRUCTOR) WBC 8.31 4.00 - 12.00 10(3)/mcL 09/22/2023 7:43 AM [facility] RBC 3.75(L) 4.40 - 5.80 10(6)/mcL 09/22/2023 7:43 AM [facility] HEMOGLOBIN (HGB) 10.7(L) 13.0 - 16.5 g/dL 09/22/2023 7:43 AM [facility] HEMATOCRIT (HCT) 33.1(L) 38.0 - 50.0 % 09/22/2023 7:43 AM [facility] MCV 88.3 82.0 - 96.0 fL 09/22/2023 7:43 AM [facility] MCH 28.5 26.0 - 32.0 pg 09/22/2023 7:43 AM [facility] MCHC 32.3 31.0 - 36.0 g/dL 09/22/2023 7:43 AM [facility] PLATELET COUNT 60(L) 140 - 440 10(3)/mcL 09/22/2023 7:43 AM ORIENTATION AND MOBILITY INSTRUCTOR [facility] RDW 15.0 11.8 - 15.5 % 09/22/2023 7:43 AM ORIENTATION AND MOBILITY INSTRUCTOR [facility] MPV 09/22/2023 7:43 AM ORIENTATION AND MOBILITY INSTRUCTOR [facility] Blood Venipuncture / Unknown 09/22/2023 6:40 AM ORIENTATION AND MOBILITY INSTRUCTOR 09/22/2023 6:51 AM ORIENTATION AND MOBILITY INSTRUCTOR us Rigo Marin MD HEMATOLOGY ORDERABLES Final Result [facility] [address] [place] [address] documented in this encounter Visit Diagnoses Not on filedocumented in this encounter Administered Medications Inactive Administered Medications - up to 3 most recent administrations Medication Order MAR Action Action Date Dose Rate Site 0.9 % sodium chloride solution at 10 mL/hr, Intravenous, CONTINUOUS, Starting on Mon09/22/23 at 0700, Until Mon09/22/23 at 1148 New Bag 09/22/2023 6:42 AM ORIENTATION AND MOBILITY INSTRUCTOR 500 mL 10 mL/hr FENTANYL CITRATE (PF) 100 MCG/2ML IJ SOLN 1 dose, Starting on Mon09/22/23 at 0720, Until Mon09/22/23 at 1148, Created by cabinet override MIDAZOLAM HCL 2 MG/2ML IJ SOLN 1 dose, Starting on Mon09/22/23 at 0720, Until Mon09/22/23 at 1148, Created by cabinet override documented in this encounter Active and Recently Administered Medications Times are shown in ORIENTATION AND MOBILITY INSTRUCTOR. Continuous Medication Order 09/20/2023 09/21/2023 09/22/2023 0.9 % sodium chloride solution at 10 mL/hr, Intravenous, CONTINUOUS, Starting on Mon09/22/23 at 0700, Until Mon09/22/23 at 1148 0642 (New Bag - Prov ider: Ameena Esquivel RN)[id number] (Stopped - Provider: Ameena Esquivel RN) No Frequency Medication Order 09/20/2023 09/21/2023 09/22/2023 FENTANYL CITRATE (PF) 100 MCG/2ML IJ SOLN 1 dose, Starting on Mon09/22/23 at 0720, Until Mon09/22/23 at 1148, Created by cabinet override MIDAZOLAM HCL 2 MG/2ML IJ SOLN 1 dose, Starting on Mon09/22/23 at 0720, Until Mon09/22/23 at 1148, Created by cabinet override documented in this encounter Additional Health Concerns Assessment Noted Time PHQ-9 Depression Total Score: 0 08/14/19 3:02 PM ORIENTATION AND MOBILITY INSTRUCTOR documented as of this encounter Care Teams Bed Manager Relationship Specialty Start Date End Date Irving Jeffries MD [address] [place] [address] PCP - General Internal Medicine 07/16/21 07/04/24 Ton Ling APRN, SPECIAL EDUCATION SECRETARY [address] [place] [address] Nurse Practitioner Advanced Practice Nurse 04/24/23 Ame Scanlon APRN, SPECIAL EDUCATION SECRETARY #[address] [facility], [facility] [address] [place] [address] Nurse Practitioner Cardiology 08/23/23 Michael Ahmadi MD [address] [place] [address] Consulting Physician Medical Oncology 07/26/23 documented as of this encounter
--- OUTSIDE RECORDS SUMMARY | 2024-07-28 14:07 | XMS_ITS | Encounter Summary ---
Author Organization [facility] Address [address] [facility] [place] [address] Phone Care Team Providers Care Nurse Navigator Name Role Phone Irving Jeffries MD Primary Care Provider [phone] Ton Ling FINISHING TRIMMER, STAGE MANAGER Unavailable Ame Scanlon FINISHING TRIMMER, STAGE MANAGER Unavailable + [phone] Michael Ahmadi MD Unavailable Reason for Visit * Auth/Cert (Routine) Specialty Diagnoses / Procedures Referred By Geeta t Referred To Contact Referral ID Status Reason Start Date Expiration Date Visits Re quested Visits Authorized [id number] 1 1 Encounter Details Date Type Department Care Team (Late st Contact Info) Description 09/18/2023 [facility] [address] [place] [address] Sophy Otto, PT TELEPHONE ENCOUNTER Social History Tobacco Use Types Packs/Day Years Used Date Smoking Tobacco: Former Cigarettes 2 20 Passive Smoke Exposure: Past Smokeless Tobacco: Never Alcohol Use Standard Drinks/Week Comments Not Currently 0 (1 standard drink = 0.6 oz pur e alcohol) [facility] Utilities Answer Date Recorded In [...] How often do you attend bahai or druze serv ices? Patient declined 09/03/2023 Do you [...] Total Score - Questions 1-9 0 07/31 [facility] of Occupat ional Health - Occupational [...] Total Score: 0 08/14/19 24 3:02 PM MANAGEMENT RECRUITER documented as of this encounter Care Teams Nurse Navigator Relationship Specialty Start Date End Date Irving Jeffries MD [address] [place] [address] PCP - General Internal Medicine 07/16/21 07/04/24 Ton Ling APRN, STAGE MANAGER [address] [place] [address] Nurse Practitioner Advanced Practice Nurse 04/24/23 Ame Scanlon APRN, STAGE MANAGER #2 [facility] [address] [place] [address] Nurse Practitioner Cardiology 08/23/23 Michael Ahmadi MD [address] [place] [address] Consulting Physician Medical Oncology 07/26/23 documented as of this encounter
--- OUTSIDE RECORDS SUMMARY | 2024-07-28 14:07 | XMS_ITS | Encounter Summary ---
Author Organization [facility] Address [address] [place] [place] [address] Phone Care Team Providers Care Small Lot Operator Name Role Phone Irving Jeffries MD Primary Care Provider Ton Ling CONFERENCE TRANSLATOR, PROTOTYPE FABRICATOR Unavailable Ame Scanlon CONFERENCE TRANSLATOR, PROTOTYPE FABRICATOR Unavailable + [phone] Michael Ahmadi MD Unavailable Reason for Visit * Reason Comments Ed follow up Encounter Details Date Type Department Care Team (Late st Contact Info) Description 09/11/2023 1:00 PM ASSEMBLER TUBING Office Visit [facility] [address] [place] [id number] Ton Ling, CONFERENCE TRANSLATOR, PROTOTYPE FABRICATOR [address] [place] [address] Urinary retention (Primary Dx); Elevated PSA Discharge Disposition: Discharged [...] Recorded In the past 12 months has [employer], gas, oil, or water company threatened to [...] declined 09/03/2023 How often do you attend zoroastrianism or confucianist serv ices? Patient declined 09/03/2023 Do you belong to any clubs o r organizations such as zoroastrianism groups, unions, fraternal or athletic groups, or [...] Total Score - Questions 1-9 0 07/31 [facility] of Occupat ional Health - [...] Sign Reading Time Taken Comments Blood Pressure 126/46 09/11/2023 12:59 PM ASSEMBLER TUBING Pulse 97 09/11/2023 12:59 PM ASSEMBLER TUBING Temperature - - Respiratory Rate 20 09/11/2023 12:59 PM ASSEMBLER TUBING Oxygen Saturation 97% 09/11/2023 12:59 PM ASSEMBLER TUBING Inhaled Oxygen Concentration - - Weight 89.8 kg (198 lb) 09/11/2023 12:59 PM ASSEMBLER TUBING Height 182.9 cm (6') 09/11/2023 12:59 PM ASSEMBLER TUBING Body Mass Index 26.85 09/11/2023 12:59 PM ASSEMBLER TUBING documented in this encounter Progress Notes * Ton Ling, CONFERENCE TRANSLATOR, PROTOTYPE FABRICATOR - 09/11/2023 1:00 PM CST UROLOGY [facility] [address] [facility], [address] [place] [address] PHONE: FAX: Assessment & Plan Urinary retention-patient has failed 1 voiding trial. Patient returned to the office tomorrow morning for a voiding trial. If patient is unable to urinate plan for urodynamics and cystoscopy to determine etiology of urinary retention. Of note, patient is on multiple psychiatric meds. Elevated PSA- MRI completed that showed 157 cc gland. PSA density 0.06. PI-RADS 2. PSA likely elevated due to large prostate gland. Following PSA kinetics on Finasteride. Due for repeat PSA 11/2023. Subjective: 04/24/2023 HPI: HPI: Iván Dumont presents [...] office for follow-up. Patient was admitted to [facility] on 09/02/2023 for altered mental status [...] mg daily. Catheter draining clear yellow urine. The following portions of the patient's chart were reviewed in this encounter and updated as appropriate: Tobacco Allergies Meds Med Hx Surg Hx Fam Hx Soc Hx ROS: Review of Systems Constitutional: Negative for chills and fever. Respiratory: Negative for cough and shortness of breath. Cardiovascular: Negative for chest pain and palpitations. Gastrointestinal: Negative for abdominal pain, diarrhea, nausea and vomiting. Musculoskeletal: Negative for myalgias. Neurological: Negative for dizziness and weakness. Objective: Vital signs: BP 126/46 (BP Location: Left Arm, BP Position: Sitting, BP Cuff Size: Large) Pulse 97 Resp 20 Ht 6' (1.829 m) Wt 198 lb (89.8 kg) SpO2 97% BMI 26.85 kg/m?? Vitals: 09/11/23 1259 PainSc: 0 - No pain Physical Exam [...] time. Lab Results Component Value Date WBC 12.42 (H) 09/05/2023 HEMOGLOBIN 10.5 (L) 09/05/2023 HEMATOCRIT 32.3 (L) 09/05/2023 PLATELETCNT 65 (L) 09/05/2023 MCV 89.7 09/05/2023 Lab Results Component Value Date SODIUM [...] Pseudomonas aeruginosa Final Susceptibility Pseudomonas aeruginosa - [facility] VITEK IIB Cefepime Susceptible mcg/ml Gentamicin Resistant Levofloxacin Susceptible mcg/ml Meropenem Susceptible mcg/ml Piperacillin/Tazobactam Susceptible mcg/ml Tobramycin Susceptible mcg/ml No results found for: TESTOSTTTL No results found for this or any previous visit from the past 365 days. There are no diagnoses linked to this encounter. By: Ton Ling APRN, CNP, 09/11/2023, 1:55 PM ASSEMBLER TUBING Primary Care Physician: Irving Jeffries MD MBLER TUBING documented in this encounter Plan of Treatment Not on file documented as of this encounter Visit Diagnoses Diagnosis Urinary retention- Primary Retention of urine, unspecified Elevated PSA Elevated prostate specific antigen (PSA) documented in this encounter Additional Health Concerns Assessment Noted Time PHQ-9 Depression Total Score: 0 08/14/19 3:02 PM ASSEMBLER TUBING documented as of this encounter Care Teams Small Lot Operator Relationship Specialty Start Date End Date Irving Jeffries MD [address] [place] [address] PCP - General Internal Medicine 07/16/21 07/04/24 Ton Ling APRN, CNP [address] [place] [address] Nurse Practitioner Advanced Practice Nurse 04/24/23 Ame Scanlon APRN, CNP #2 [facility] [address] [place] [address] Nurse Practitioner Cardiology 08/23/23 Michael Ahmadi MD [address] [place] [address] Consulting Physician Medical Oncology 07/26/23 documented as of this encounter
--- OUTSIDE RECORDS SUMMARY | 2024-07-28 14:07 | XMS_ITS | Encounter Summary ---
Author Organization [facility] Address [address] [place] [address] Phone Care Team Providers Care Cable Former Name Role Phone Irving Jeffries MD Primary Care Provider Ton Ling SKID ADZER, REMOTE CODERS Unavailable Ame Scanlon SKID ADZER, REMOTE CODERS Unavailable + [phone] Michael Ahmadi MD Unavailable Reason for Visit * Auth/Cert (Routine) Specialty Diagnoses / Procedures Referred By Geeta t Referred To Contact Referral ID Status Reason Start Date Expiration Date Visits Re quested Visits Authorized [id number] 1 1 Encounter Details Date Type Department Care Team (Late st Contact Info) Description 09/27/2023 3:00 PM FORMULATION SCIENTIST [facility] [address] [place] [address] Bea Clark, RN [place] - OASIS DISCHARGE Social History Tobacco Use Types Packs/Day Years [...] How often do you attend mu-ism or jain serv ices? Patient declined 09/03/2023 Do you [...] Score - Questions 1-9 0 07/31 [facility] - Occupational [...] to sleep or slept in a senior care (including now)? Patient declined 09/03/2023 Sexually Active Control Partners Comments Never Sex and Gender Information Value Date Recorded Sex Assigned at Not on file Legal Sex Male 11:18 PM CDT Gender Identity Not on file Sexual Orientation Not on file documented as of this encounter Last Filed Vital Signs Vital Sign Reading Time Taken Comments Blood Pressure 122/62 09/27/2023 2:41 PM FORMULATION SCIENTIST Pulse 96 09/27/2023 2:41 PM FORMULATION SCIENTIST Temperature 36.7 ??C (98 ??F) 09/27/2023 2:41 PM FORMULATION SCIENTIST Respiratory Rate - - Oxygen Saturation 95% 09/27/2023 2:41 PM FORMULATION SCIENTIST Inhaled Oxygen Concentration - - Weight - - Height - - Body Mass Index - - documented in this encounter Plan of Treatment Not on file documented as of this encounter Visit Diagnoses Not on filedocumented in this encounter Additional Health Concerns Assessment Noted Time PHQ-9 Depression Total Score: 0 08/14/19 24 3:02 PM FORMULATION SCIENTIST documented as of this encounter Home Health Visit - Care Plan Visit Details Visit Type -SN - OASIS DISCH ARGE Discipline -Retirement Problems Problem Description Start Date Status Goals Interve ntions FALL PREVENTION (O) Disciplines: SN, PT, OT, OUTDOOR STUDIES PROFESSOR, HCA, RETAIL SALES ADVISOR, RT 08/09/2023 Active 1 goal linked to scheduled/documen hector intervention 1 goal intervention scheduled/document ed in this visit ALL HH VITAL SIGN PARAMETERS Disciplines: All Home Care 08/09/2023 Active - 1 problem intervention scheduled/document ed in this visit PNEUMONIA ORDERS Disciplines: Retirement Pneumonia Orders 08/09/2023 Active 1 goal linked to scheduled/documen hector intervention 1 goal intervention scheduled/document ed in this visit SN DISCHARGE Disciplines: Retirement SN Discharge 08/09/2023 Active - 2 problem interventions scheduled/document ed in this visit SAFETY/PREVENTI ON EDUCATION Disciplines: Retirement Safety/Preventio n Education 08/09/2023 Active - 1 problem intervention scheduled/document ed in this visit SN GENERAL ORDERS Disciplines: Retirement SN General Orders 08/09/2023 Active 1 goal linked to scheduled/documen hector intervention 2 goal interventions scheduled/document ed in this visit DEPRESSION Disciplines: Retirement Depression Risk 08/09/2023 Active 1 goal linked to scheduled/documen hector intervention 1 goal intervention scheduled/document ed in this visit DARYL GENERAL (ORDER ONLY) Disciplines: Retirement SN Resumption of Care 09/07/2023 Active - 1 problem intervention scheduled/document ed in this visit INDWELLING CATHETER CARE Disciplines: Retirement Indwelling Catheter Care 09/07/2023 Active 1 goal linked to scheduled/documen hector intervention 1 goal intervention scheduled/document ed in this visit Goals Goal Associated Problem Outcome Goal Met? Visit Notes Fall Prevention Description: Shared goal applicable to all disciplines with a visit frequency order. Patient/ Caregiver will verbalize understanding of identified fall risk based on MAHC-10 Fall Risk assessment and methods to prevent falls. Target date: 09/09/23 FALL PREVENTION (O) No Pneumonia Description: Patient will verbalize understanding of methods to prevent exacerbation of pneumonia. Patient/ caregiver will verbalize understanding of pneumonia self care management. Target date: 09/09/23 PNEUMONIA ORDERS No SN General Description: After assessing the patient and discussing the patient's goals the following were identified: 1. Patient will demonstrate effective self-care management including understanding of ordered medication regimen, signs and symptoms to report, and recommended follow up with physician. Target date: 09/09/23 2. Patient will verbalize understanding of medication regimen including name, actions, reason for use, evaluation of effectiveness, side effects, and administration instructions. Target date: 09/09/23. 3. Patient centered long-term goal return to his baseline regarding strength and endurance. Target date: 09/29/23 SN GENERAL ORDERS No Depression Description: Patient will verbalize understanding of depression self help measures. Target date: 08/31/23 DEPRESSION No Indwelling Catheter Care Description: Patient/ caregiver will demonstrate the ability to properly care for urinary catheter including methods to prevent infection, and signs and symptoms to report. Target date: 09/14/23 INDWELLING CATHETER CARE No Interventions Intervention Associated Problem/Goal Status Variance Visit Notes Fall (Order Only) Description: Shared intervention applicable to all disciplines with a visit frequency order.Patient meets criteria for Fall Program based on MAHC-10 score. Instruct patient/caregiver on fall prevention measures. Problem:FALL PREVENTION (O) Goal:Fall Prevention Completed All Vital Sign Parameters (Order Only) Description: Standard parameters to report to physician (unless patient specific parameters are ordered) - Applicable to all disciplines involved in patient's plan of care: Systolic blood pressure less than 90 Systolic blood pressure greater than 160 and/or diastolic blood pressure greater than 100 at rest unless due to uncontrolled pain or missed dose of antihypertensive medication. Blood Pressure greater than 140/90 for 3 consecutive readings occurring in at least two separate visits. Pulse greater than 110 at rest or less than 50 Respirations greater than 24 at rest or less than 10 Temperature greater than 101 degrees Fahrenheit New or increased edema Pulse ox less than 90% at rest on room air or while wearing prescribed oxygen, if ordered. Uncontrolled pain: chronic pain that changes in character or increases, pain that interferes with activity daily, or pain that is reported as unacceptable by the patient after use of prescribed pain control measures. Problem:ALL HH VITAL SIGN PARAMETERS Completed Pneumonia (Order Only) Description: Skilled Nurse to assess pneumonia disease process and instruct on self-care management. Problem:PNEUMONIA ORDERS Goal:Pneumonia Completed Notice Of Discharge Description: Complete Notice of Discharge documentation three days prior to agency discharge. Problem:SN DISCHARGE Completed Notice of discharge signed by Patient. Agrees with plan for discharge on 09/27/23. Dr. Jeffries notified via CC note and agrees with discharge plan. SN Discharge Problem:SN DISCHARGE Completed Medication list reviewed and left in home. Medicare notice of discharge signed on 09/27/23. Discharge Instructions provided to Patient. Response verbalize understanding. Nursing Pressure Injury Prevention (Order Only) Description: Instruct on pressure injury prevention techniques and safety. Provide/apply moisture barrier to protect from incontinence as needed based on pressure injury risk assessment. Problem:SAFETY/PRE VENTION EDUCATION Completed Additional Disease Management (O) Description: SN to monitor for signs and symptoms of exacerbation or complications of Hypertension, GERD, bleeding signs/symptoms due to blood thinner and low platelet count, signs of CVA, BPH with urinary retention, MRSA sepsis, Afib Problem:SN GENERAL ORDERS Goal:SN General Completed Exacerbation/ complications noted at this visit: none General Nursing Plan of Care (Order Only) Description: Admission Certification: 77 y.o male admitted to Home Care Services for weakness, deconditioning, catheter maintenance. Estimation of how long skilled services will be required 60 days. Face to Face encounter occurred on 08/09/23 with Mason Culp MD Dr. Patel contacted and agrees with plan of care. Clinical findings: patient presented to ED with SOB. Patient was found to have sepsis, RSV, pneumonia and had to be intubated. Cedillo catheter was placed for urinary retention. Patient has enlarged prostate. Patient went into afib w/RVR. [facility]. Skilled Nurse Focus: catheter maintenance/education Physical Therapy to evaluate and treat for: weakness, deconditioning Occupational Therapy to evaluate and treat for: ADL education with strength conservation Speech Therapy to evaluate and treat for: none ordered Social Work Focus: none ordered Laundry Tech to provide: none ordered Past Medical History: GERD, HLD, HTN, anemia, thrombocytopenia, schizophrenia Other contributing issues: fall risk Skilled Nurse to instruct patient/caregiver on signs and symptoms to report, emergency measures, safety measures, diet, and activity. Instruct on medication regime, and patient management. Perform physical assessment including vital signs and pain assessment. Perform pulse oximetry PRN for intermittent assessment and/ or respiratory distress. Homebound Criteria 1- Patient has illness/injury: weakness, deconditioning , and needs/has: help of another person to leave home due to weakness and SOB and assistive devices to leave home due to imbalance and weakness Homebound Criteria 2- Inability to leave the home and leaving the home requires a taxing and considerable effort due to: dyspnea with ambulation greater than 10 feet and leaving home exacerbates symptoms shortness of breath and fatigue Patient has the following structural impairments: Structures of the cardiovascular system, Structures of the respiratory system, Structures related to genitourinary system and Structures related to movement Patient has the following functional impairments: Functions of the cardiovascular system, Functions of the hematological and immunological system, Functions of the respiratory system, Genitourinary functions and Neuromusculoskeletal and movement related functions The patient's activity limitation affects the following: Mobility, Self-care, Domestic life and Interpersonal interactions and relationships Telehealth contact via video or phone by any discipline as needed to assess/monitor condition related to current diagnoses, to assist with achieving identified goals. Problem:SN GENERAL ORDERS Goal:SN General Completed Depression (O) Description: Patient at risk for depression. Skilled nurse to instruct on signs and symptoms to report, and self help measures. Problem:DEPRESSION Goal:Depression Completed Depression Education Provided: Activity- Engage in mild activity or exercise, set realistic goals for yourself, break up large tasks into small ones, Lifestyle- Spend time with other people, don't expect to suddenly snap out of depression, often during treatment for depression, sleep and appetite will begin to improve before you begin to feel better, Medication- Do not stop taking medication without notifying your physician, most medications take 2-3 weeks before you notice changes in the way you feel and What to report- Worsening signs of depression, thoughts of harming yourself, concerns about medication, other concerns/questions Instruction provided to: Patient. Response verbalize understanding. DARYL General (Order Only) Description: DARYL in the last 5 days of cert period: No 77 y.o. male admitted to [facility] for sepsis from 09/03/23 to 09/05/23 Resumption of Home Care Services for weakness, deconditioning, catheter maintenance and education Dr. Jeffries contacted and agrees with plan of care. Ordered services: Skilled Nurse for: catheter maintenance and education PT for: weakness deconditioning, imbalance OT for: none ordered ST for: not needed/ordered at this time Social Work for: not needed/ordered at this time Laundry Tech for: not needed/ordered at this time Resume other disciplines: PT to evaluate and treat 1 week 1 effective week of 09/08/23. Plan of care orders/ goals reviewed and updated, patient agrees with plan of care Problem:DARYL GENERAL (ORDER ONLY) Completed Urethral Catheter Care (Order Only) Description: Skilled Nurse to maintain urinary catheter: 16 Fr catheter; 10 ml balloon. Change catheter monthly and PRN dislodgement, leakage, or contamination. Instruct patient/ caregiver on signs and symptoms to report including catheter complications, and urinary infection, and methods to prevent. Problem:INDWELLING CATHETER CARE Goal:Indwelling Catheter Care Completed documented in this encounter Care Teams Cable Former Relationship Specialty Start Date End Date Irving Jeffries MD [address] [place] [address] PCP - General Internal Medicine 07/16/21 07/04/24 Ton Ling APRN, REMOTE CODERS [address] [place] [address] Nurse Practitioner Advanced Practice Nurse 04/24/23 Ame Scanlon APRN, REMOTE CODERS [address] [facility] [address] [place] [address] Nurse Practitioner Cardiology 08/23/23 Michael Ahmadi MD [address] [place] [address] Consulting Physician Medical Oncology 07/26/23 documented as of this encounter
--- OUTSIDE RECORDS SUMMARY | 2024-07-28 14:07 | XMS_ITS | Encounter Summary ---
Author Organization [facility] Address [address] [place] [address] Phone Care Team Providers Care Glazing Machine Operator Name Role Phone Irving Jeffries MD Primary Care Provider Ton Ling SILO ERECTOR, STOCK RAISER Unavailable Ame Scanlon SILO ERECTOR, STOCK RAISER Unavailable + [phone] Michael Ahmadi MD Unavailable Encounter Details Date Type Department Care Team (Late st Contact Info) Description 09/05/2023 Home Health Resumpti on of Care Planning [facility] [address] [place] [address] Social History Tobacco Use Types Packs/Day Years Used Date Smoking Tobacco: Former Cigarettes 2 20 Passive Smoke Exposure: Past Smokeless Tobacco: Never Alcohol Use Standard Drinks/Week Comments Not Currently 0 (1 standard drink = 0.6 oz pur e alcohol) [facility] Utilities Answer Date Recorded In the past 12 months has [employer] electric, gas, oil, or water company threatened [...] How often do you attend lutheran or anabaptist serv ices? Patient declined 09/03/2023 [...] Score - Questions 1-9 0 07/31 [facility] - Occupational Stress [...] Depression Total Score: 0 08/14/19 3:02 PM CUSTOMER MARKETING INTERN documented as of this encounter Care Teams Glazing Machine Operator Relationship Specialty Start Date End Date Irving Jeffries MD [address] [place] [address] PCP - General Internal Medicine 07/16/21 07/04/24 Ton Ling APRN, STOCK RAISER [address] [place] [address] Nurse Practitioner Advanced Practice Nurse 04/24/23 Ame Scanlon APRN, STOCK RAISER [address] [facility] [address] [place] [address] Nurse Practitioner Cardiology 08/23/23 Michael Ahmadi MD [address] [place] [address] Consulting Physician Medical Oncology 07/26/23 documented as of this encounter
--- OUTSIDE RECORDS SUMMARY | 2024-07-28 14:07 | XMS_ITS | Encounter Summary ---
Author Organization [facility] Address [address] [facility] [place] [address] Phone Care Team Providers Care Lead Burner Helper Name Role Phone Irving Jeffries MD Primary Care Provider [phone] Ton Ling PUBLIC HEALTH ASSISTANT, ENGINE MONITOR Unavailable [phone] Ame Scanlon PUBLIC HEALTH ASSISTANT, ENGINE MONITOR Unavailable + [phone] Michael Ahmadi MD Unavailable Reason for Visit * Auth/Cert (Routine) Specialty Diagnoses / Procedures Referred By Geeta t Referred To Contact Referral ID Status Reason Start Date Expiration Date Visits Re quested Visits Authorized [id number] 1 1 Encounter Details Date Type Department Care Team (Late st Contact Info) Description 09/19/2023 [facility] [address] [place] [address] Josh Costa CNA [place] [facility] CONFERENCE Social History Tobacco Use Types Packs/Day Years Used Date Smoking Tobacco: Former Cigarettes 2 20 Passive Smoke Exposure: Past Smokeless Tobacco: Never Alcohol Use Standard Drinks/Week Comments Not Currently 0 (1 standard drink = 0.6 oz pur e alcohol) [facility] Utilities Answer Date Recorded In [...] declined 09/03/2023 How often do you attend gnosticism or confucianist serv ices? Patient declined 09/03/2023 Do you belong to any clubs o r organizations such as gnosticism groups, unions, fraternal or athletic groups, or [...] 0 07/31 [facility] - Occupational Stress Questionnaire Answer Date [...] Total Score: 0 08/14/19 24 3:02 PM TOOLING INSPECTOR documented as of this encounter Care Teams Lead Burner Helper Relationship Specialty Start Date End Date Irving Jeffries MD [address] [place] [address] PCP - General Internal Medicine 07/16/21 07/04/24 Ton Ling APRN, ENGINE MONITOR [address] [place] [address] Nurse Practitioner Advanced Practice Nurse 04/24/23 Ame Scanlon APRN, ENGINE MONITOR [address] [facility] [address] [place] [address] Nurse Practitioner Cardiology 08/23/23 Michael Ahmadi MD [address] [place] [address] Consulting Physician Medical Oncology 07/26/23 documented as of this encounter
--- OUTSIDE RECORDS SUMMARY | 2024-07-28 14:07 | XMS_ITS | Encounter Summary ---
Author Organization [facility] Address [address] [facility] [place] [address] Phone Care Team Providers Care Machinist Supervisor Outside Name Role Phone Irving Jeffries MD Primary Care Provider Ton Ling SENIOR ELECTRONICS DESIGN ENGINEER, ASSISTANT MANAGER OF OPERATIONS Unavailable [phone] Ame Scanlon SENIOR ELECTRONICS DESIGN ENGINEER, ASSISTANT MANAGER OF OPERATIONS Unavailable Michael Ahmadi MD Unavailable Reason for Visit * Reason Comments Follow-up Encounter Details Date Type Department Care Team (Latest Contact Info) Description 08/30/2023 10:00 AM HYDROELECTRIC STATION OPERATOR CHIEF Office Visit [facility] - Cardiology - [place] [address] [place] [id number] Ame Scanlon, SENIOR ELECTRONICS DESIGN ENGINEER, ASSISTANT MANAGER OF OPERATIONS [address] [facility], [address] [place] [address] Atrial fibrillation with RVR (HCC) (Primary Dx); Thrombocytopenia (HCC); Anemia, unspecified type; Chronic undifferentiated schizophrenia (HCC) Discharge Disposition: Discharged to home or Selfcare Social History Tobacco Use Types Packs/Day Years Used Date Smoking Tobacco: Former Cigarettes 2 20 Passive Smoke Exposure: Past Smokeless Tobacco: Never Alcohol Use Standard Drinks/Week Comments Not Currently 0 (1 standard drink = 0.6 oz pur e alcohol) [facility] Utilities Answer Date Recorded In [...] 08/14/2023 How often do you attend chur ch or anglican services? Patient unable to answer 08/14/2023 Do you belong to any clubs o r organizations such as shinto groups, unions, fraternal or athletic groups, or [...] Total Score - Questions 1-9 0 07/31 [employer] [place] [facility] Occupat [facility] - Occupational Stress [...] Sign Reading Time Taken Comments Blood Pressure 132/68 08/30/2023 9:54 AM HYDROELECTRIC STATION OPERATOR CHIEF Pulse 81 08/30/2023 9:54 AM HYDROELECTRIC STATION OPERATOR CHIEF Temperature 36.6 ??C (97.8 ??F) 08/30/2023 9:54 AM CS T Respiratory Rate 20 08/30/2023 9:54 AM HYDROELECTRIC STATION OPERATOR CHIEF Oxygen Saturation 99% 08/30/2023 9:54 AM HYDROELECTRIC STATION OPERATOR CHIEF Inhaled Oxygen Concentration - - Weight 86.2 kg (190 lb) 08/30/2023 9:54 AM HYDROELECTRIC STATION OPERATOR CHIEF Height 185.4 cm (6' 1 ) 08/30/2023 9:54 AM HYDROELECTRIC STATION OPERATOR CHIEF Body Mass Index 25.07 08/30/2023 9:54 AM HYDROELECTRIC STATION OPERATOR CHIEF documented in this encounter Patient Instructions * Patient Instructions* Ame Scanlon APRN, CNP - 08/30/2023 10:00 AM HYDROELECTRIC STATION OPERATOR CHIEF Continue current medications. Follow up in 6 months or sooner with any concerns or change in symptoms. OELECTRIC STATION OPERATOR CHIEF documented in this encounter Progress Notes * Ame Scanlon APRN, CNP - 08/30/2023 10:00 AM CST HISTORY AND PHYSICAL Assessment & Plan: 1. Atrial fibrillation with RVR (HCC) -rate controlled. Continue daily metoprolol. -Xarelto on hold due to severe thrombocytopenia. We will resume once cleared by Hematology. 2. Thrombocytopenia (HCC) 3. Anemia, unspecified type -patient following with Hematology for severe thrombocytopenia and chronic anemia. -currently on blood thinners on hold due to significant low platelet count. -per hematology plan for upcoming bone marrow biopsy. 4. Chronic undifferentiated schizophrenia (HCC) -follows with PCP and Psychiatry. Patient was stable cardiac symptoms today. Patient in AFib rate controlled, continue metoprolol. Return to clinic in 6 months or sooner with any concerns or change in symptoms. Subjective: HPI: Iván Dumont is a 77 y.o. male who is seen in cardiology clinic for hospital follow-up. Patient with past medical history significant for hypertension, stroke, schizophrenia, AFib with RVR. Initially met patient in the hospital during admission for respiratory failure, RSV positive, found to be in AFib with RVR with noted hypoxia. Patient was treated with IV Cardizem and transitioned to oral metoprolol. He was also started on oral anticoagulation at that time for CHADS-VASc 5. Patient reports today with no cardiac or breathing complaints. He denies chest pain, dyspnea, orthopnea, PND, palpitations or syncope. His caregiver is in attendance during the visit today. He was seen yesterday by Hematology for follow-up on his thrombocytopenia and anemia. Xarelto was stopped at that time in order to prevent recurrent bleeding including recent issues with hematuria secondary tolow platelet levels. There recommendations include not resuming anticoagulation unless platelet count is consistently greater than 50 K. we discussed increased stroke risk. And we will consider possibility of Watchman in future if needed. Patient Active Problem List Diagnosis Date Noted ??? Paroxysmal atrial fibrillation (HCC) 08/14/2023 ??? Elevated PSA 08/14/2023 ??? Need for hepatitis C screening test ??? Anemia ??? Thrombocytopenia (HCC) 02/02/2023 ??? GERD without esophagitis 07/17/2020 ??? Mixed hyperlipidemia 07/17/2020 ??? Essential hypertension, benign 07/17/2020 ??? Chronic undifferentiated schizophrenia (HCC) 07/17/2020 No Known Allergies Cannot display prior to admission medications because the patient has not been admitted in this contact. Current Outpatient Medications on File Prior to Visit Medication Sig Dispense Refill ??? acetaminophen (TYLENOL) 325 MG Tablet Take 2 Tablets by mouth every 6 hours as needed for Mild or more severe pain. ??? amLODIPine (NORVASC) 10 MG Tablet Take 1 Tablet by mouth daily. 30 Tablet 11 ??? Cephalexin 500 MG Tablet Take by mouth. ??? finasteride (PROSCAR) 5 MG Tablet Take 1 Tablet by mouth daily. (Patient not taking: Reported on 08/30/2023) 90 Tablet 1 ??? HYDROCHLOROTHIAZIDE PO Take by mouth. (Patient not taking: Reported on 08/30/2023) ??? LOSARTAN POTASSIUM PO Take by mouth. (Patient not taking: Reported on 08/30/2023) ??? MELOXICAM PO Take by mouth. (Patient not taking: Reported on 08/30/2023) ??? metoprolol tartrate (LOPRESSOR) 25 MG Tablet Take 1 Tablet by mouth 2 times daily for 90 days. (Patient not taking: Reported on 08/30/2023) 180 Tablet 0 ??? omeprazole (PriLOSEC) 20 MG CAPSULE DELAYED RELEASE Take 1 Capsule by mouth in the morning and at bedtime. 30 Capsule 7 ??? SITagliptin Phosphate (JANUVIA PO) Take by mouth. (Patient not taking: Reported on 08/30/2023) ??? tamsulosin (FLOMAX) 0.4 MG Capsule Take 1 Capsule by mouth in the morning and at bedtime. (Patient not taking: Reported on 08/30/2023) 60 Capsule 1 No current facility-administered medications on file prior to visit. Past Medical History Positives Diagnosis Date ??? Anxiety ??? Arthritis ??? GERD (gastroesophageal reflux disease) ??? Hyperlipidemia ??? Hypertension ??? Major depressive disorder ??? Schizophrenia (HCC) No past surgical history on file. No family history on file. Social History Socioeconomic History ??? Marital status: Single Spouse name: Not on file ??? Number of children: Not on file ??? Years of education: Not on file ??? Highest education level: Not on file Occupational History ??? Not on file Tobacco Use ??? Smoking status: Former Packs/day: 2.00 Years: 20.00 Additional pack years: 0.00 Total pack years: 40.00 Types: Cigarettes Passive exposure: Past ??? Smokeless tobacco: Never Vaping Use ??? Vaping Use: Never used Substance and Sexual Activity ??? Alcohol use: Not Currently ??? Drug use: Never ??? Sexual activity: Never Other Topics Concern ??? Not on file Social History Narrative ??? Not on file Social Determinants of Health Financial Resource Needs: Patient Unable To Answer (08/14/2023) Overall Financial Resource Strain (CARDIA) ??? Difficulty of Paying Living Expenses: Patient unable to answer Food Insecurity Needs: Patient Unable To Answer (08/14/2023) Hunger Vital Sign ??? Worried About Running Out of Food in the Last Year: Patient unable to answer ??? Ran Out of Food in the Last Year: Patient unable to answer Transportation Needs: Patient Unable To Answer (08/14/2023) PRAPARE - Transportation ??? Lack of Transportation (Medical): Patient unable to answer ??? Lack of Transportation (Non-Medical): Patient unable to answer Physical Activity: Patient Unable To Answer (08/14/2023) Exercise Vital Sign ??? Days of Exercise per Week: Patient unable to answer ??? Minutes of Exercise per Session: Patient unable to answer Stress: Patient Unable To Answer (08/14/2023) [employer] [place] [employer]ational Health - Occupational Stress Questionnaire ??? Feeling of Stress : Patient unable to answer Social Integration: Patient Unable To Answer (08/14/2023) Social Connection and Isolation Panel [NHANES] ??? Frequency of Communication with Friends and Family: Patient unable to answer ??? Frequency of Social Gatherings with Friends and Family: Patient unable to answer ??? Attends Quaker Services: Patient unable to answer ??? Active Member of Clubs or Organizations: Patient unable to answer ??? Attends Club or Organization Meetings: Patient unable to answer ??? Marital Status: Patient unable to answer Intimate Partner Violence: Patient Unable To Answer (08/14/2023) Humiliation, Afraid, Rape, and Kick questionnaire ??? Fear of Current or Ex-Partner: Patient unable to answer ??? Emotionally Abused: Patient unable to answer ??? Physically Abused: Patient unable to answer ??? Sexually Abused: Patient unable to answer Housing Stability: Patient Unable To Answer (08/14/2023) Housing Stability Vital Sign ??? Unable to Pay for Housing in the Last Year: Patient unable to answer ??? Number of Places Lived in the Last Year: 1 ??? Unstable Housing in the Last Year: Patient unable to answer Review of Systems: Review of Systems Constitutional: [...] Negative for dysuria, frequency and hematuria. Musculoskeletal: Positive for joint pain. Negative for back pain, falls and myalgias. Skin: Negative for rash. Neurological: Negative for dizziness, speech change, focal weakness, loss of consciousness, weakness and headaches. Endo/Heme/Allergies: Does not bruise/bleed easily. Psychiatric/Behavioral: Negative for depression and substance abuse. The patient does not have insomnia. Pertinent items are noted in HPI. All other systems were reviewed and were negative. Objective: VITALS: BP 132/68 (BP Location: Left Arm, BP Position: Sitting, BP Cuff Size: Regular) Pulse 81 Temp 97.8 ??F (36.6 ??C) (Temporal) Resp 20 Ht 6' 1 (1.854 m) Wt 190 lb (86.2 kg) SpO2 99% BMI 25.07 kg/m?? Physical Exam Constitutional: General: He is [...] Abdomen is flat. Palpations: Abdomen is soft. Genitourinary: Comments: Cedillo in place Musculoskeletal: General: Normal range of motion. Right [...] hours. Lab Results Component Value Date WBC 7.47 08/18/2023 HEMOGLOBIN 10.3 (L) 08/18/2023 HEMATOCRIT 32.1 (L) 08/18/2023 PLATELETCNT 43 (L) 08/18/2023 CHOLESTEROL 168 03/15/2023 TRIGLYCRIDES 611 (H) 03/15/2023 HDLCHOLESTE 24 (L) 03/15/2023 LDL 0 07/29/2020 SGPTALT 21 08/18/2023 SGOTAST 10 08/18/2023 SODIUM 139 08/18/2023 POTASSIUM 4.1 08/18/2023 CHLORIDE 107 08/18/2023 CREATININE 0.79 08/18/2023 BUN 13 08/18/2023 CO2VEN 23 08/18/2023 PSA 8.19 03/01/2023 PSASCREEN 9.18 (H) 03/15/2023 INR 1.4 (H) 08/18/2023 GLUCOSE 96 08/18/2023 Echocardiogram 07/28/2023: Conclusions Summary Concentric LV remodelling. [...] unless stated above. 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, chronic condition documented in this encounter Additional Health Concerns 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 07/28/2023 09/04/2023 8:45 AM HYDROELECTRIC STATION OPERATOR CHIEF Assessment Noted Time PHQ-9 Depression Total Score: 0 08/14/19 3:02 PM HYDROELECTRIC STATION OPERATOR CHIEF documented as of this encounter Care Teams Machinist Supervisor Outside Relationship Specialty Start Date End Date Irving Jeffries MD [address] [place] [address] PCP - General Internal Medicine 07/16/21 07/04/24 Ton Ling APRN, CNP [address] [place] [address] Nurse Practitioner Advanced Practice Nurse 04/24/23 Ame Scanlon APRN, CNP [address] [facility] [address] [place] [address] Nurse Practitioner Cardiology 08/23/23 Michael Ahmadi MD [address] [place] [address] Consulting Physician Medical Oncology 07/26/23 documented as of this encounter
--- OUTSIDE RECORDS SUMMARY | 2024-07-28 14:07 | XMS_ITS | Encounter Summary ---
Author Organization [facility] Address [address] [facility] [place] [address] Phone Care Team Providers Care Manager Sales And Marketing Name Role Phone Irving Jeffries MD Primary Care Provider [phone] Ton Ling DIRECTOR OF VALUATION, RANGELAND MANAGEMENT SPECIALIST Unavailable [phone] Ame Scanlon DIRECTOR OF VALUATION, RANGELAND MANAGEMENT SPECIALIST Unavailable + [phone] Michael Ahmadi MD Unavailable Reason for Visit * Auth/Cert (Routine) Specialty Diagnoses / Procedures Referred By Geeta t Referred To Contact Referral ID Status Reason Start Date Expiration Date Visits Re quested Visits Authorized [id number] 1 1 Encounter Details Date Type Department Care Team (Late st Contact Info) Description 09/08/2023 10:00 AM BRIDGE OPENER [facility] [address] [place] [address] Sophy Otto, PT PT - INITIAL EVALUATION Social History Tobacco Use Types Packs/Day Years Used Date Smoking Tobacco: Former Cigarettes 2 20 Passive Smoke Exposure: Past Smokeless Tobacco: Never Alcohol Use Standard Drinks/Week Comments Not Currently 0 (1 standard drink = 0.6 oz pur e alcohol) [facility] Utilities Answer Date Recorded In [...] How often do you attend mandaeism or orthodoxy serv ices? Patient declined 09/03/2023 Do you [...] Total Score - Questions 1-9 0 07/31 [facility] Occupat ional Health - Occupational [...] Sign Reading Time Taken Comments Blood Pressure 110/58 09/08/2023 9:58 AM BRIDGE OPENER Pulse 74 09/08/2023 9:58 AM BRIDGE OPENER Temperature 37 ??C (98.6 ??F) 09/08/2023 9:58 AM BRIDGE OPENER Respiratory Rate 16 09/08/2023 9:58 AM BRIDGE OPENER Oxygen Saturation 97% 09/08/2023 9:58 AM BRIDGE OPENER Inhaled Oxygen Concentration - - Weight - - Height - - Body Mass Index - - documented in this encounter Plan of Treatment Not on file documented as of this encounter Visit Diagnoses Not on filedocumented in this encounter Additional Health Concerns Assessment Noted Time PHQ-9 Depression Total Score: 0 08/14/19 24 3:02 PM BRIDGE OPENER documented as of this encounter Home Health Visit - Care Plan Visit Details Visit Type -PT - INITIAL ZAC LUATION Discipline -Physical Therapy Problems Problem Description Start Date Status Goals Interve ntions THERAPY DISEASE MANAGEMENT (O) Disciplines: Physical Therapy 08/10/2023 Active - 1 problem intervention scheduled/documented in this visit Interventions Intervention Associated Problem/Goal Status Variance Visit Notes Therapy Depression (O) Description: Assess and monitor for signs and symptoms of depression. Problem:THERAPY DISEASE MANAGEMENT (O) Completed Patient shows signs of depression no documented in this encounter Care Teams Manager Sales And Marketing Relationship Specialty Start Date End Date Irving Jeffries MD [address] [place] [address] PCP - General Internal Medicine 07/16/21 07/04/24 Ton Ling APRN, RANGELAND MANAGEMENT SPECIALIST [address] [place] [address] Nurse Practitioner Advanced Practice Nurse 04/24/23 Ame Scanlon APRN, RANGELAND MANAGEMENT SPECIALIST [address] [facility] [address] [place] [address] Nurse Practitioner Cardiology 08/23/23 Michael Ahmadi MD [address] [place] [address] Consulting Physician Medical Oncology 07/26/23 documented as of this encounter
--- OUTSIDE RECORDS SUMMARY | 2024-07-28 14:07 | XMS_ITS | Encounter Summary ---
Author Organization [facility] Address [address] [place] [address] Phone Care Team Providers Care Securities Analyst Name Role Phone Irving Jeffries MD Primary Care Provider [phone] Ton Ling ASSISTANT ACCOUNT EXECUTIVE, HAZARDOUS SUBSTANCES ENGINEER Unavailable [phone] Ame Scanlon ASSISTANT ACCOUNT EXECUTIVE, HAZARDOUS SUBSTANCES ENGINEER Unavailable Michael Ahmadi MD Unavailable Reason for Visit * Reason Comments Post-Hospital Follow-up Bloody urine Encounter Details Date Type Department Care Team (Late st Contact Info) Description 08/28/2023 2:30 PM GREASER AND OILER Office Visit [facility] - Internal Medicine [place] [address] [place] [address] Irving Jeffries MD [address] [place] [address] Gross hematuria (Primary Dx); Paroxysmal atrial fibrillation (HCC); Essential hypertension, benign Discharge Disposition: Discharged to home or Selfcare Social History Tobacco Use Types Packs/Day Years Used Date Smoking Tobacco: Former Cigarettes 2 20 Passive Smoke Exposure: Past Smokeless Tobacco: Never Tobacco Cessation:Counseling Given: No Alcohol Use Standard Drinks/Week Comments Not Currently 0 (1 standard drink = 0.6 oz pur e alcohol) [facility] Utilities Answer Date Recorded In the past 12 months has e electric, gas, oil, or water [employer] threatened to shut off services in your [...] How often do you attend chur or taoist services? Patient unable to answer 08/14/2023 Do [...] Total Score - Questions 1-9 0 07/31 [facility] - [...] in a senior living (including now)? Patient unable to answer 08/14/2023 Sexually Active Control Partners Comments Never Sex and Gender Information Value Date Recorded Sex Assigned at Not on file Legal Sex Male 11:18 PM CDT Gender Identity Not on file Sexual Orientation Not on file documented as of this encounter Last Filed Vital Signs Vital Sign Reading Time Taken Comments Blood Pressure 110/58 08/28/2023 2:20 PM GREASER AND OILER Pulse 92 08/28/2023 2:20 PM GREASER AND OILER Temperature 36.2 ??C (97.2 ??F) 08/28/2023 2:20 PM CS T Respiratory Rate - - Oxygen Saturation 98% 08/28/2023 2:20 PM GREASER AND OILER Inhaled Oxygen Concentration - - Weight 86.6 kg (191 lb) 08/28/2023 2:20 PM GREASER AND OILER Height 182.9 cm (6') 08/28/2023 2:20 PM GREASER AND OILER Body Mass Index 25.9 08/28/2023 2:20 PM GREASER AND OILER documented in this encounter Progress Notes * Scarlet Clark CMA - 08/28/2023 2:30 PM CST Iván Dumont, 77 y.o., male is here for Post-Hospital Follow-up (Bloody urine) Medication Refills: Patient reports/denies need for medication refills. Orders Pended: no Requested Prescriptions No prescriptions requested or ordered in this encounter Home Medications Medication Sig Start Date End Date Taking? Authorizing Provider acetaminophen (TYLENOL) 325 MG Tablet Take 2 Tablets by mouth every 6 hours as needed for Mild or more severe pain. Yes Melody Aguilar MD amLODIPine (NORVASC) 10 MG Tablet Take 1 Tablet by mouth daily. 02/21/23 Yes Irving Jeffries MD Cephalexin 500 MG Tablet Take by mouth. Yes Emergency, Nurse, RN finasteride (PROSCAR) 5 MG Tablet Take 1 Tablet by mouth daily. 08/15/23 Yes Ton Ling APRN, CNP HYDROCHLOROTHIAZIDE PO Take by mouth. Yes Melody Aguilar MD LOSARTAN POTASSIUM PO Take by mouth. Yes Melody Aguilar MD MELOXICAM PO Take by mouth. Yes ProviderMelody MD metoprolol tartrate (LOPRESSOR) 25 MG Tablet Take 1 Tablet by mouth 2 times daily for 90 days. 08/07/23 11/05/23 Yes Annie Jeffries MD omeprazole (PriLOSEC) 20 MG CAPSULE DELAYED RELEASE Take 1 Capsule by mouth in the morning and at bedtime. 07/14/23 Yes Michael Ahmadi MD rivaroxaban (XARELTO) 15 MG Tablet Take 1 Tablet by mouth daily. Take with food. Indications: Atrial Fibrillation 08/14/23 Yes Irving Jeffries MD SITagliptin Phosphate (JANUVIA PO) Take by mouth. Yes ProviderMelody MD tamsulosin (FLOMAX) 0.4 MG Capsule Take 1 Capsule by mouth in the morning and at bedtime. 08/15/23 Yes Ton Ling APRN, CNP There are no discontinued medications. I have reviewed the home medication list with the patient and have reconciled discrepancies. The list is accurate to the best of my knowledge. Smoking Status: Social History Tobacco Use ??? Smoking status: Former Packs/day: 2.00 Years: 20.00 Additional pack years: 0.00 Total pack years: 40.00 Types: Cigarettes Passive exposure: Past ??? Smokeless tobacco: Never Vaping Use ??? Vaping Use: Never used Substance Use Topics ??? Alcohol use: Not Currently ??? Drug use: Never Smoking Cessation Counseling Given: no Health Care Maintenance: Health Maintenance Due Topic Date Due ??? DTaP/Tdap/Td Immunization (1 - Tdap) Never done ??? Pneumococcal Immunization (65+ years) (2 of 2 - PPSV23 or PCV20) 05/14/2016 ??? Zoster Immunization (2 of 3) 07/19/2016 Orders Pended: no The following BPA's have been addressed with the patient today: Flu and Smoking SER AND OILER * Irving Jeffries MD - 08/28/2023 2:30 PM CST PROGRESS NOTE [facility] - INTERNAL MEDICINE [address] [place] [address] PHONE: [phone] FAX: [phone] 08/28/2023 NAME: Iván Dumont, : 1945, Assessment ASSESSMENT & PLAN: Return in about 4 weeks (around 09/25/2023) for a.fib. Diagnoses and all orders for this visit: Gross hematuria Comments: Resolved since off Xarelto. Since patient has thrombocytopenia also will hold off anticoagulation at present Paroxysmal atrial fibrillation (HCC) Comments: Rate under control. Will continue to monitor. Essential hypertension, benign Comments: Controlled. Continue current medication. Follow-up in 3 months, sooner if needed. Chief Complaint Patient presents with ??? Post-Hospital Follow-up Bloody urine [facility] Patient is here for follow-up for hematuria. Recently seen in ER due to blood in the urine. Currently patient has Cedillo catheter in place for urinary retention. Xarelto was discontinued in ER. Since then urine is clear. Patient is feeling well. Tolerating medications well. He is being followed by oncologist for thrombocytopenia. ROS Review of systems was negative, except as documented in HPI PHYSICAL EXAM VITALS: Wt Readings from Last 3 Encounters: 08/28/23 191 lb (86.6 kg) 08/24/23 190 lb (86.2 kg) 08/18/23 190 lb (86.2 kg) Temp Readings from Last 3 Encounters: 08/28/23 97.2 ??F (36.2 ??C) (Temporal) 08/28/23 98.2 ??F (36.8 ??C) 08/25/23 98 ??F (36.7 ??C) BP Readings from Last 3 Encounters: 08/28/23 110/58 08/28/23 112/60 08/25/23 116/75 Pulse Readings from Last 3 Encounters: 08/28/23 92 08/28/23 91 08/25/23 79 Physical Exam Vitals and nursing note reviewed. Constitutional: Appearance: Normal appearance. He is normal weight. HENT: Head: Normocephalic. Eyes: Extraocular Movements: Extraocular movements intact. Conjunctiva/sclera: Conjunctivae normal. Pupils: Pupils are equal, round, and reactive to light. Cardiovascular: Rate and Rhythm: Normal rate. Rhythm irregular. Pulses: Normal pulses. Heart sounds: Normal heart sounds. Pulmonary: Effort: Pulmonary effort is normal. Breath sounds: Normal breath sounds. Abdominal: General: Abdomen is flat. Bowel sounds are normal. Palpations: Abdomen is soft. Musculoskeletal: General: Normal range of motion. Cervical back: Normal range of motion and neck supple. Skin: General: Skin is warm and dry. Neurological: General: No focal deficit present. Mental Status: He is alert and oriented to person, place, and time. Psychiatric: Mood and Affect: Mood normal. Past medical, surgical, social and family history has been reviewed and updated as necessary. Medications and allergies has been reviewed and updated. Not on File Current Outpatient Medications: ??? acetaminophen (TYLENOL) 325 MG Tablet ??? amLODIPine (NORVASC) 10 MG Tablet ??? Cephalexin 500 MG Tablet ??? finasteride (PROSCAR) 5 MG Tablet ??? HYDROCHLOROTHIAZIDE PO ??? LOSARTAN POTASSIUM PO ??? MELOXICAM PO ??? metoprolol tartrate (LOPRESSOR) 25 MG Tablet ??? omeprazole (PriLOSEC) 20 MG CAPSULE DELAYED RELEASE ??? SITagliptin Phosphate (JANUVIA PO) ??? tamsulosin (FLOMAX) 0.4 MG Capsule I educated Iván regarding diagnoses and plan of care. He verbalizes understanding and will call the office if situation changes. Voice recognition software was utilized in this dictation. Despite proof reading, typographical errors and/or content errors may have occurred. 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 [address] [place] [address] Nurse Practitioner Cardiology 08/23/23 Michael Ahmadi MD [address] [place] [address] Consulting Physician Medical Oncology 07/26/23 documented as of this encounter
--- OUTSIDE RECORDS SUMMARY | 2024-07-28 14:07 | XMS_ITS | Encounter Summary ---
Author Organization [employer] Care Team Providers Care Cyber Analyst Name Role Phone Irving Jeffries MD Primary Care Provider [phone] Ton Ling APRN, CALENDER RUNNER Unavailable [phone] Ame Scanlon APRN, CALENDER RUNNER Unavailable + [phone] Michael Ahmadi MD Unavailable [phone] Encounter Details Date Type Department Care Team (Latest Contact Info) Description 09/11/2023 Travel Social History Tobacco Use Types Packs/Day Years Used Date Smoking Tobacco: Former Cigarettes 2 20 Passive Smoke Exposure: Past Smokeless Tobacco: Never Alcohol Use Standard Drinks/Week Comments Not Currently 0 (1 standard drink = 0.6 oz pur e alcohol) [facility] Utilities Answer Date Recorded In the past 12 months has [employer], gas, oil, or water [employer] threatened to shut off services in your home? Patient declined 09/03/2023 Social Connection and Isolation Panel [NHANES] A nswer Date Recorded In a typical week, how many times do you talk on the phone with family, friends, or neighbors? Patient declined 09/03/2023 How often do you get togethe r with friends or relatives? Patient declined 09/03/2023 How often do you attend zoroastrian or mandaeism serv ices? Patient declined 09/03/2023 Do you belong to any clubs o r organizations such as zoroastrian groups, unions, fraternal or athletic groups, or [...] Total Score - Questions 1-9 0 07/31 [facility] - Occupational Stress Questionnaire Answer [...] Depression Total Score: 0 08/14/19 3:02 PM PUBLICIST documented as of this encounter Care Teams Cyber Analyst Relationship Specialty Start Date End Date Irving Jeffries MD [address] [place] [address] PCP - General Internal Medicine 07/16/21 07/04/24 Ton Ling APRN, CALENDER RUNNER [address] [place] [address] Nurse Practitioner Advanced Practice Nurse 04/24/23 Ame Scanlon APRN, CALENDER RUNNER [address] [facility] [place] [address] Nurse Practitioner Cardiology 08/23/23 Michael Ahmadi MD [address] [place] [address] Consulting Physician Medical Oncology 07/26/23 documented as of this encounter
--- OUTSIDE RECORDS SUMMARY | 2024-07-28 14:07 | XMS_ITS | Encounter Summary ---
Author Organization [employer] Care Team Providers Care Breakdown Mill Operator Name Role Phone Irving Jeffries MD Primary Care Provider [phone] Ton Ling APRN, TOP INVENTORY CONTROL EXECUTIVE Unavailable [phone] Ame Scanlon APRN, TOP INVENTORY CONTROL EXECUTIVE Unavailable + [phone] Michael Ahmadi MD Unavailable [phone] Encounter Details Date Type Department Care Team (Latest Contact Info) Description 09/02/2023 Travel Social History Tobacco Use Types Packs/Day Years Used Date Smoking Tobacco: Former Cigarettes 2 20 Passive Smoke Exposure: Past Smokeless Tobacco: Never Alcohol Use Standard Drinks/Week Comments Not Currently 0 (1 standard drink = 0.6 oz pur e alcohol) [facility] Utilities Answer Date Recorded In the past 12 months has [employer], gas, oil, or water [employer] threatened to shut off services in your home? Patient declined 09/03/2023 Social Connection and Isolation Panel [NHANES] A nswer Date Recorded In a typical week, how many times do you talk on the phone with family, friends, or neighbors? Patient declined 09/03/2023 How often do you get togethe r with friends or relatives? Patient declined 09/03/2023 How often do you attend taoist or yarsani serv ices? Patient declined 09/03/2023 [...] Total Score - Questions 1-9 0 07/31 [facility] Occup[facility] - Occupational Stress Questionnaire Answer [...] place to sleep or slept in a group home (including now)? Patient declined 09/03/2023 Sexually [...] Time 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 07/28/2023 09/04/2023 8:45 AM SEAT BUILDER COVID - 19 09/02/2023 09/02/2023 09/04/2023 8:45 AM SEAT BUILDER Assessment Noted Time PHQ-9 Depression Total Score: 0 08/14/19 3:02 PM SEAT BUILDER documented as of this encounter Care Teams Breakdown Mill Operator Relationship Specialty Start Date End Date Irving Jeffries MD [address] [place] [address] PCP - General Internal Medicine 07/16/21 07/04/24 Ton Ling APRN, TOP INVENTORY CONTROL EXECUTIVE [address] [place] [address] Nurse Practitioner Advanced Practice Nurse 04/24/23 Ame Scanlon APRN, TOP INVENTORY CONTROL EXECUTIVE [address] [facility] [address] [place] [address] Nurse Practitioner Cardiology 08/23/23 Michael Ahmadi MD [address] [place] [address] Consulting Physician Medical Oncology 07/26/23 documented as of this encounter
--- OUTSIDE RECORDS SUMMARY | 2024-07-28 14:07 | XMS_ITS | Encounter Summary ---
Author Organization [facility] Address [address] [facility] [place] [address] Phone Care Team Providers Care Federal Appellate Clerk Name Role Phone Irving Jeffries MD Primary Care Provider [phone] Ton Lnig PEARL MAKER, RESTAURANT TEAM MEMBER Unavailable [phone] Ame Scanlon PEARL MAKER, RESTAURANT TEAM MEMBER Unavailable [phone] Michael Ahmadi MD Unavailable Reason for Visit * Auth/Cert (Routine) Specialty Diagnoses / Procedures Referred By Geeta t Referred To Contact Referral ID Status Reason Start Date Expiration Date Visits Re quested Visits Authorized [id number] 1 1 Encounter Details Date Type Department Care Team (Late st Contact Info) Description 09/08/2023 Home Care Visit [facility] [address] [place] [address] Bea Clark, RN [place] TELEPHONE ENCOUNTER Social [...] declined 09/03/2023 How often do you attend oriental orthodox or sabianist serv ices? Patient declined 09/03/2023 Do you belong to any clubs o r organizations such as oriental orthodox groups, unions, fraternal or athletic groups, [...] Questions 1-9 0 07/31 [facility] - Occupational Stress Questionnaire Answer [...] Total Score: 0 08/14/19 24 3:02 PM LAUNDRY EQUIPMENT OPERATOR documented as of this encounter Care Teams Federal Appellate Clerk Relationship Specialty Start Date End Date Irving Jeffries MD [address] [place] [address] PCP - General Internal Medicine 07/16/21 07/04/24 Ton Ling APRN, RESTAURANT TEAM MEMBER [address] [place] [address] Nurse Practitioner Advanced Practice Nurse 04/24/23 Ame Scanlon APRN, RESTAURANT TEAM MEMBER #[address] [facility] [address] [place] [address] Nurse Practitioner Cardiology 08/23/23 Michael Ahmadi MD [address] [place] [address] Consulting Physician Medical Oncology 07/26/23 documented as of this encounter
--- OUTSIDE RECORDS SUMMARY | 2024-07-28 14:07 | XMS_ITS | Encounter Summary ---
Author Organization [facility] Address [address] [place] [address] Phone Care Team Providers Care Supervisor Costuming Name Role Phone Irving Jeffries MD Primary Care Provider Ton Ling DRYCLEANER, BURR FILER Unavailable Ame Scanlon DRYCLEANER, BURR FILER Unavailable + [phone] Michael Ahmadi MD Unavailable Reason for Visit * Auth/Cert (Routine) Specialty Diagnoses / Procedures Referred By Geeta t Referred To Contact Referral ID Status Reason Start Date Expiration Date Visits Re quested Visits Authorized [id number] 1 1 Encounter Details Date Type Department Care Team (Latest Contact Info) Description 09/18/2023 11:00 AM [employer] [facility] [address] [place] [address] Mere Puckett, ORGANIZATIONAL PSYCHOLOGIST PT - DISCIPLINE DISCHARGE Social History Tobacco Use Types Packs/Day Years Used Date Smoking Tobacco: Former Cigarettes 2 20 Passive Smoke Exposure: Past Smokeless Tobacco: Never Alcohol Use Standard Drinks/Week Comments Not Currently 0 (1 standard drink = 0.6 oz pur e alcohol) [facility] Utilities Answer Date Recorded In the [...] declined 09/03/2023 How often do you attend adventist or jain serv ices? Patient declined 09/03/2023 Do you belong to any clubs o r organizations such as adventist groups, unions, fraternal or athletic groups, or [...] Score - Questions 1-9 0 07/31 [facility] - Occupational Stress Questionnaire Answer Date [...] Sign Reading Time Taken Comments Blood Pressure 112/53 09/18/2023 12:45 PM [employer] Pulse 78 09/18/2023 12:45 PM [employer] Temperature 36.4 ??C (97.6 ??F) 09/18/2023 12:[address] Respiratory Rate 18 09/18/2023 12:45 PM [employer] Oxygen Saturation 97% 09/18/2023 12:45 PM [employer] Inhaled Oxygen Concentration - - Weight - - Height - - Body Mass Index - - documented in this encounter Plan of Treatment Not on file documented as of this encounter Visit Diagnoses Not on filedocumented in this encounter Additional Health Concerns Assessment Noted Time PHQ-9 Depression Total Score: 0 08/14/19 24 3:02 PM [employer] documented as of this encounter Home Health Visit - Care Plan Visit Details Visit Type -PT - DISCIPLINE DISCHARGE Discipline -Physical Therapy Problems Problem Description Start Date Status Goals Interve ntions THERAPY DISEASE MANAGEMENT (O) Disciplines: Physical Therapy 08/10/2023 Active - 1 problem intervention scheduled/document ed in this visit PT DISCHARGE/REASS ESSMENT Disciplines: Physical Therapy PT Discharge 08/10/2023 Active - 2 problem interventions scheduled/document ed in this visit PT COMPREHENSIVE Disciplines: Physical Therapy 08/10/2023 Active 4 goals linked to scheduled/document ed interventions 4 goal interventions scheduled/document ed in this visit PT COMPREHENSIVE Disciplines: Physical Therapy 08/28/2023 Active 1 goal linked to scheduled/document ed intervention 1 goal intervention scheduled/document ed in this visit Goals Goal Associated Problem Outcome Goal Met? Visit Notes PT Balance Description: Sewer Bricklayer Goal: Patient will show improved dynamic standing balance as demonstrated by improved Tinetti score from to in order to lower risk for falls. To be met by 09/22/23. PT COMPREHENSIVE Therapy: Goal partially met No PT Caregiver Assist/Safety Description: Short Term Goal: Caregiver will be able to safely demonstrate patient assistance with home exercise program, transfers, ambulation and stair negotiation in order to prevent falls. To be met by 09/22/23. PT COMPREHENSIVE Therapy: Goal partially met No PT Ambulation Description: Sewer Bricklayer Goal: Patient will ambulate independently 150 feet with use of AD prn over even surfaces or uneven surfaces with the following improved gait characteristics no pathway deviations in order to safely leave home for appointments. To be met by 09/22/23. PT COMPREHENSIVE Therapy: Goal partially met No PT HEP Description: Usp Goal: Patient and/or caregiver will require min assist with final HEP of strengthening, balance training and conditioning in order to continue preventing functional decline after discharge from home care. To be met by 09/22/23. PT COMPREHENSIVE Therapy: Goal partially met No PT Stairs and Home Exit Description: Usp Goal: Patient will be independent on entry steps with use of HR/AD prn while maintaining ordered precautions to allow for ability to to enter/exit home for appts . To be met by 09/22/23. PT COMPREHENSIVE Therapy: Goal partially met No Interventions Intervention Associated Problem/Goal Status Variance Visit Notes Therapy Depression (O) Description: Assess and monitor for signs and symptoms of depression. Problem:THERAPY DISEASE MANAGEMENT (O) Completed Patient shows signs of depression yes Symptoms reported to physician no Notice Of Discharge Description: Complete Notice of Discharge documentation three days prior to agency discharge Problem:PT DISCHARGE/REASSESSMEN T Completed Notice of discharge signed by Patient. Agrees with plan for discharge on 09/18/[address] Jeffries notified via CC note and agrees with discharge plan. PT Discharge Problem:PT DISCHARGE/REASSESSMEN T Completed Medication list reviewed and left in home. Medicare notice of discharge signed on TBD upon nursing D/C. Discharge Instructions provided to Patient and Caregiver staff at care home care. Response verbalize understanding. PT Balance Description: Provide balance training for safety and reduced fall risk. Problem:PT COMPREHENSIVE Goal:PT Balance Completed Balance training provided this date Dynamic standing performing Tinetti assessment . Level of support required for safety with supervision. Special Test performed this date Tinetti score 27/28. Low fall risk. Skill provided Safety instructions use cane or walker as needed if unsteady. Instruction provided to Patient. Response verbalize understanding. Progress toward goal: met PT Caregiver Assist/Safety Description: Instruct caregiver how to safely assist patient. Problem:PT COMPREHENSIVE Goal:PT Caregiver Assist/Safety Completed Caregiver training provided to Lenora and other staff at care home home setting: ambulation Caregiver response to training: verbalize understanding. Progress toward goal: met PT Ambulation Description: Provide gait training for increased safety and efficiency. Progress per patient tolerance and safety. Problem:PT COMPREHENSIVE Goal:PT Ambulation Completed Patient ambulated independently 150 feet with use of no device around care home home building WBAT bilateral lower extremity over even surfaces with the following gait characteristics fast pacing, step through pattern and no balance losses observed to and from meals 3 x a day . Skills provided: Safety instruction use walker or cane as needed for stablity or pain to decrease fall risks Tolerance to activity decreased assistance required. Instruction provided to Patient. Response verbalize understanding and return demonstration. Progress toward goal: met PT HEP Progression Description: Instruct on home exercise program. Progress as tolerated. Problem:PT COMPREHENSIVE Goal:PT HEP Completed Home Exercise Program issued supine and sitting B L/E's AROM x 10 to hip,knee and ankle musculature with patient demonstrating ranges with cues on correct movement patterns and or looking at handout pictures Instruction provided to Patient. Response verbalize understanding and return demonstration. PT Stairs and Home Exit Description: Instruct in proper safety and technique for stair training or home exit as directed in the goal. Problem:PT COMPREHENSIVE Goal:PT Stairs and Home Exit Completed Provided skilled training on 19 steps with use of 2 rails with independence. Skills provided: Safety instruction go slow and make sure feet on completly on steps Tolerance to activity good. Instruction provided to Patient. Response verbalize understanding and return demonstration. Progress toward goal: met documented in this encounter Care Teams Supervisor Costuming Relationship Specialty Start Date End Date Irving Jeffries MD [address] [place] [address] PCP - General Internal Medicine 07/16/21 07/04/24 Ton Ling, DRYCLEANER, BURR FILER [address] [place] [address] Nurse Practitioner Advanced Practice Nurse 04/24/23 Ame Scanlon DRYCLEANER, BURR FILER [address] [facility] [address] [place] [address] Nurse Practitioner Cardiology 08/23/23 Michael Ahmadi MD [address] [place] [address] Consulting Physician Medical Oncology 07/26/23 documented as of this encounter
--- OUTSIDE RECORDS SUMMARY | 2024-07-28 14:07 | XMS_ITS | Encounter Summary ---
Author Organization [facility] Address [address] [facility] [place] [address] Phone Care Team Providers Care Vegetable Ii Farmworker Name Role Phone Irving Jeffries MD Primary Care Provider Ton Ling MACHINE CLOTH EXAMINER, PROGRAM DIRECTOR SCOUTING Unavailable [phone] Ame Scanlon MACHINE CLOTH EXAMINER, PROGRAM DIRECTOR SCOUTING Unavailable + [phone] Michael Ahmadi MD Unavailable [phone] Reason for Visit * Reason Comments Follow-up Encounter Details Date Type Department Care Team (Latest Contact Info) Description 09/25/2023 10:00 AM JAVA DEVELOPER ANALYST Office Visit [facility] On[facility] Services [address] [place] [id number] Michael Ahmadi MD [address] [place] [address] Thrombocytopenia (HCC) (Primary Dx); Iron deficiency; Iron deficiency anemia due to sideropenic dysphagia Discharge Disposition: Discharged to home or Selfcare Social History Tobacco Use Types Packs/Day Years Used Date Smoking Tobacco: Former Cigarettes 2 20 Passive Smoke Exposure: Past Smokeless Tobacco: Never Tobacco Cessation:Counseling Given: Not Answered Alcohol Use Standard Drinks/Week Comments Not Currently 0 (1 standard drink = 0.6 oz pur e alcohol) [facility] Utilities Answer Date Recorded In the past 12 months has th e electric, gas, oil, or water [employer] threatened to shut off services in your home? Patient declined 09/03/2023 Social Connection and Isolation Panel [NHANES] A nswer Date Recorded In a typical week, how many times do you talk on the phone with family, friends, or neighbors? Patient declined 09/03/2023 How often do you get togethe r with friends or relatives? Patient declined 09/03/2023 How often do you attend sikh or temple serv ices? Patient declined 09/03/2023 Do you [...] Total Score - Questions 1-9 0 07/31 [facility] Occup[facility] ional [facility] - Occupational [...] Sign Reading Time Taken Comments Blood Pressure 102/50 09/25/2023 9:57 AM JAVA DEVELOPER ANALYST Pulse 110 09/25/2023 9:57 AM JAVA DEVELOPER ANALYST Temperature 36.4 ??C (97.6 ??F) 09/25/2023 9:57 AM CS T Respiratory Rate 17 09/25/2023 9:57 AM JAVA DEVELOPER ANALYST Oxygen Saturation 98% 09/25/2023 9:57 AM JAVA DEVELOPER ANALYST Inhaled Oxygen Concentration - - Weight 87.7 kg (193 lb 6.4 oz) 09/25/2023 9:57 A M JAVA DEVELOPER ANALYST Height 182.9 cm (6') 09/25/2023 9:57 AM JAVA DEVELOPER ANALYST Body Mass Index 26.23 09/25/2023 9:57 AM JAVA DEVELOPER ANALYST documented in this encounter Progress Notes * Mayra Duenas - 09/25/2023 10:00 AM CST Outpatient Hem/Onc Progress Note PROGRESS NOTE Iván Dumont is a 77 y.o. male seen today for follow up of severe thrombocytopenia. Patient requests to be called Norberto. Norberto is here today accompanied by friend living adjacent to facility for support. He reports appetite remains stable with ability to tolerate wide variety of foods. Norberto reports remaining active by walking in neighborhood and doing PT exercises. Norberto completed BMBX on 09/22/23 with results still pending. BMBX was delayed to hospital admission occurring after last OV. Norberto was admitted after last OV with sepsis related to UTI through 09/05/23. He was discharged with Barakat ca theter in place. Norberto was evaluated by Ton Ling MANDARIN SPEAKING NANNY on 09/11/23 with voiding trial failed this day. He returned on 09/12/23 with repeat voiding trial completed without residual. Patient again returned to urology on 09/19/23 with bladder scan showing 91 cc bladder in urine. Prior to this admission he was admitted to [facility] 07/28/23 through 08/07/23 for atrial fibrillation RVR state, RSV infection, andurinary retention. Barakat catheter was placed to improve urinary retention with Xarelto started for A.fib. He returned to [facility] on 08/09/23 for blood present in catheter; discharged with advice to hold Xarelto for 2 days to prevent recurrent bleeding. Patient was seen by Ton Gonzalez MANDARIN SPEAKING NANNY on 08/15/23 wi th barakat removed, Tamsulosin increased to BID, and start Finasteride. He returned on 08/18/23 for gross hematuria and inability to urinate with barakat placed. Norberto denies any current urinary retention, hematuria, or dysuria. Denies fevers, chills, cough, or other signs of infection. He was originally worked up for [...] on 07/12/23 for clinical suspicion of ITP. DIAGNOSIS/TREATMENT HISTORY: Reviewed patients past medical, surgical, social, and family history. No outpatient medications have been marked as taking for the 09/25/23 encounter (Appointment) with Michael Ahmadi MD. Allergies as of 09/25/2023 ??? (No Known Allergies) REVIEW OF SYSTEMS Review [...] DATA: Lab Results Component Value Date WBC 8.31 [...] WBC 7.6 HGB 13.2 PLT 9K !! ?? 06/07/23 CBC OSH: WBC 6.8 HGB 12.4 PLT 39K ?? 05/28/23 CBC OSH: WBC 8.2 HGB 12.9 PLT 18K ?? 05/10/23 CBC OSH: WBC 6.6 HGB 12.3 PLT 18K ?? 04/26/23 CBC OSH: WBC 8.0 HGB 12.7 PLT 33K Lab Results Component Value Date PSASCREEN 9.18 (H) 03/15/2023 PSA 8.19 03/01/2023 PSATOTAL 9.75 (H) 04/24/2023 Lab Results Component Value Date IRON 104 04/24/2023 TIBC 354 04/24/2023 IRONSATURATI 29 04/24/2023 FERRITIN 23 04/24/2023 [id number] 486 03/15/2023 DIAGNOSTIC IMAGING STUDIES: 07/29/23 CT ANGIO CHEST: IMPRESSION: 1. No PE. 2. Lung findings unchanged. 07/29/23 CT CHEST WO CONTRAST: IMPRESSION: 1. Examination is degraded by respiratory motion. There are small bilateral pleural effusions and bilateral pulmonary opacities, consistent with pneumonia. ?? 2. Mildly enlarged precarinal lymph node which may be reactive. 3. Coronary artery disease 4. Small hiatal hernia 03/21/23 US ABDOMEN: IMPRESSION: ??No evidence of an acute abnormality. ??Spleen size is normal. ??Cholelithiasis with no secondary features of acute cholecystitis. ??Bilateral renal cysts. ??Hepatic steatosis Assessment: 1. Thrombocytopenia , severe, worsening. -- Did respond transiently to oral steroids 2. Anemia, normocytic, mild 3. Chronic undifferentiated schizophrenia 4. Elevated PSA, MRI pelvis negative for malignant changes likely related to BPH 5. Urinary retention, barakat catheter in place Plan: 2. Will contact facility with BMBX results when available. Patient and his caregiver are agreeable to this plan. 3. Obtain CBC in 6 weeks to monitor levels for need for intervention. Patient will complete these labs at facility. 4. START Ferrous Sulfate 325 mg daily on empty stomach to improve low iron levels that were measured on previous labs. Discussed common side effects of this intervention such as constipation, dark stool, and stomach upset. Contact office if unable to tolerate oral iron. 5. HOLD ALL ANTICOAGULANTS to prevent recurrent bleeding [...] after recent hospital admission. Follow up in 6 weeks with CBC prior, sooner if needed The patient was given an opportunity to ask questions, and all questions answered to patient's satisfaction. Patient verbalizes understanding of the plan as outlined above. The documentation for this visit was completed by Mayra Duenas acting as a scribe for Michael Valdovinos MD. 09/25/2023, 9:56 AM JAVA DEVELOPER ANALYST DEVELOPER ANALYST * Michael Ahmadi MD - 09/25/2023 10:00 AM CST Outpatient Hem/Onc Progress Note Interval history: Iván Dumont is a 77 y.o. male seen today for follow up of severe thrombocytopenia. Patient requests to be called Norberto. Norberto is here today accompanied by friend living adjacent to facility for support. He reports appetite remains stable with ability to tolerate wide variety of foods. Norberto reports remaining active by walking in neighborhood and doing PT exercises. Norberto completed BMBX on 09/22/23 with results still pending. BMBX was delayed to hospital admission occurring after last OV. Norberto was admitted after last OV with sepsis related to UTI through 09/05/23. He was discharged with Barakat ca theter in place. Norberto was evaluated by Ton Ling MANDARIN SPEAKING NANNY on 09/11/23 with voiding trial failed this day. He returned on 09/12/23 with repeat voiding trial completed without residual. Patient again returned to urology on 09/19/23 with bladder scan showing 91 cc bladder in urine. Prior to this admission he was admitted to [facility] 07/28/23 through 08/07/23 for atrial fibrillation RVR state, RSV infection, andurinary retention. Barakat catheter was placed to improve urinary retention with Xarelto started for A.fib. He returned to [facility] on 08/09/23 for blood present in catheter; discharged with advice to hold Xarelto for 2 days to prevent recurrent bleeding. Patient was seen by Ton Gonzalez MANDARIN SPEAKING NANNY on 08/15/23 wi th barakat removed, Tamsulosin increased to BID, and start Finasteride. He returned on 08/18/23 for gross hematuria and inability to urinate with barakat placed. Norberto denies any current urinary retention, hematuria, or dysuria. Denies fevers, chills, cough, or other signs of infection. He was originally worked up for [...] on 07/12/23 for clinical suspicion of ITP. Reviewed patients past medical, surgical, social, and family history. No outpatient medications have been marked as taking for the 09/25/23 encounter (Office Visit) with Michael Ahmadi MD. Allergies as of 09/25/2023 ??? (No Known Allergies) REVIEW OF SYSTEMS Review [...] DATA: Lab Results Component Value Date WBC 8.31 [...] WBC 7.6 HGB 13.2 PLT 9K !! ?? 06/07/23 CBC OSH: WBC 6.8 HGB 12.4 PLT 39K ?? 05/28/23 CBC OSH: WBC 8.2 HGB 12.9 PLT 18K ?? 05/10/23 CBC OSH: WBC 6.6 HGB 12.3 PLT 18K ?? 04/26/23 CBC OSH: WBC 8.0 HGB 12.7 PLT 33K Lab Results Component Value Date PSASCREEN 9.18 (H) 03/15/2023 PSA 8.19 03/01/2023 PSATOTAL 9.75 (H) 04/24/2023 Lab Results Component Value Date IRON 104 04/24/2023 TIBC 354 04/24/2023 IRONSATURATI 29 04/24/2023 FERRITIN 23 04/24/2023 [id number] 486 03/15/2023 DIAGNOSTIC IMAGING STUDIES: 07/29/23 CT ANGIO CHEST: IMPRESSION: 1. No PE. 2. Lung findings unchanged. 07/29/23 CT CHEST WO CONTRAST: IMPRESSION: 1. Examination is degraded by respiratory motion. There are small bilateral pleural effusions and bilateral pulmonary opacities, consistent with pneumonia. ?? 2. Mildly enlarged precarinal lymph node which may be reactive. 3. Coronary artery disease 4. Small hiatal hernia 03/21/23 US ABDOMEN: IMPRESSION: ??No evidence of an acute abnormality. ??Spleen size is normal. ??Cholelithiasis with no secondary features of acute cholecystitis. ??Bilateral renal cysts. ??Hepatic steatosis Assessment: 1. Thrombocytopenia , severe, worsening. -- Did respond transiently to oral steroids 2. Anemia, normocytic, mild 3. Chronic undifferentiated schizophrenia 4. Elevated PSA, MRI pelvis negative for malignant changes likely related to BPH 5. Urinary retention, barakat catheter in place Plan: 1. reviewed patient's recent clinical symptoms and lab results. He underwent bone marrow aspirationand biopsy on 09/22/2023, results are pending at this time. Labs reviewed his platelet count was insafe range of over 50,000 and he has not had any bleeding or bruising. 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 He has had some anemia off and, iron/ferritin levels were borderline in March. Will start him on ferrous sulfate 325 mg p.o. daily. With recent hematuria etcetera, his iron-deficiency might have worsened. Repeat CBC and iron panel in 6 weeks. 2. Will contact facility with BMBX results when available. Patient and his caregiver are agreeable to this plan. 3. Obtain CBC in 6 weeks to monitor levels for need for intervention. Patient will complete these labs at facility. 4. START Ferrous Sulfate 325 mg daily on empty stomach to improve low iron levels that were measured on previous labs. Discussed common side effects of this intervention such as constipation, dark stool, and stomach upset. Contact office if unable to tolerate oral iron. 5. HOLD ALL ANTICOAGULANTS to prevent recurrent bleeding [...] for management of chronic medical conditions. Encouraged Nobrerto to remain active with walking around neighborhood and PT exercises as directed after recent hospital admission. Follow up in 6 weeks with CBC prior, sooner if needed The patient was given an opportunity to ask questions, and all questions answered to patient's satisfaction. Patient verbalizes understanding of the plan as outlined above. The documentation for this visit was completed by Mayra Duenas acting as a scribe for Michael Valdovinos MD. 09/25/2023, 11:06 AM JAVA DEVELOPER ANALYST The documentation recorded by the scribe was completed while in the exam room with me and the patient.?? The documentation accurately reflects the service I personally performed and the decisions made by me. I have confirmed and edited the documentation as necessary. Michael Ahmadi MD 09/25/2023, 11:06 AM JAVA DEVELOPER ANALYST DEVELOPER ANALYST documented in this encounter Miscellaneous Notes * Interdisciplinary - Mary Brooks MA - 09/25/2023 10:00 AM CST Follow up. No pain, today. Per pt, his meds are unchanged--tjo DEVELOPER ANALYST * Interdisciplinary - Mary Brooks MA - 09/25/2023 10:00 AM CST Discussed discharge instructions. AVS given--tjo DEVELOPER ANALYST documented in this encounter Plan of Treatment Not on file documented as of this encounter Procedures Procedure Name Priority Date/Time Associated Diagnosis Comments IRON,TRANSFERN,CALC.TI BC,%SAT Routine 11/08/2023 12:00 AM CDT Thrombocytopenia (HCC) Iron deficiency FERRITIN Routine 11/08/2023 12:00 AM CDT Thrombocytopenia (HCC) Iron deficiency CMP (COMPREHENSIVE METABOLIC PANEL) Routine 11/08/2023 12:00 AM CDT Thrombocytopenia (HCC) Iron deficiency COMPLETE BLOOD COUNT (CBC) WITH DIFF Routine 11/08/2023 12:00 AM CDT Thrombocytopenia (HCC) Iron deficiency documented in this encounter Results * IRON,TRANSFERN,CALC.TIBC,%SAT (11/08/2023 12:00 AM CDT) Blood Michael Ahmadi MD CHEMISTRY ORDERABLES Fin al Result Performing Organization Address [facility] de Phone Number SCAN * FERRITIN (11/08/2023 12:00 AM CDT) Blood Michael Ahmadi MD CHEMISTRY ORDERABLES Fin al Result Performing Organization Address [facility] de Phone Number SCAN * CMP (COMPREHENSIVE METABOLIC PANEL) (11/08/2023 12:00 AM CDT) Blood Michael Ahmadi MD CHEMISTRY ORDERABLES Fin al Result Performing Organization Address City/[facility] Co de Phone Number SCAN * COMPLETE BLOOD COUNT (CBC) WITH DIFF (11/08/2023 12:00 AM CDT) Blood Michael Ahmadi MD HEMATOLOGY ORDERABLES Fi nal Result Performing Organization Address [facility] de Phone Number SCAN documented in this encounter Visit Diagnoses Diagnosis Thrombocytopenia (HCC)- Primary Thrombocytopenia, unspecified Iron deficiency Other disorders of iron metabolism Iron deficiency anemia due to sideropenic dysphagia documented in this encounter Additional Health Concerns Assessment Noted Time PHQ-9 Depression Total Score: 0 01/15/20 24 3:02 PM JAVA DEVELOPER ANALYST documented as of this encounter Care Teams Vegetable Ii Farmworker Relationship Specialty Start Date End Date Irving Jeffries MD [address] [place] [address] PCP - General Internal Medicine 07/16/21 07/04/24 Ton Ling APRN, PROGRAM DIRECTOR SCOUTING [address] [place] [address] Nurse Practitioner Advanced Practice Nurse 04/24/23 Ame Scanlon APRN, PROGRAM DIRECTOR SCOUTING [address] [facility] [address] [place] [address] Nurse Practitioner Cardiology 08/23/23 Michael Ahmdai MD [address] [place] [address] Consulting Physician Medical Oncology 07/26/23 documented as of this encounter
--- OUTSIDE RECORDS SUMMARY | 2024-07-28 14:07 | XMS_ITS | Encounter Summary ---
Author Organization [facility] Address [address] [place] [address] Phone Care Team Providers Care Tank Builder Helper Name Role Phone Irving Jeffries MD Primary Care Provider [phone] Ton Ling MEDICAL CLERICAL ASSISTANT, AERODYNAMICS PROFESSOR Unavailable Ame Scanlon MEDICAL CLERICAL ASSISTANT, AERODYNAMICS PROFESSOR Unavailable [phone] Michael Ahmadi MD Unavailable [phone] Reason for Visit * Reason Comments Follow-up 1 week to retention Encounter Details Date Type Department Care Team (Late st Contact Info) Description 09/19/2023 9:30 AM STOCK PATCHER Office Visit [facility] [address] [place] [address] Ton Ling, MEDICAL CLERICAL ASSISTANT, AERODYNAMICS PROFESSOR [address] [place] [address] Urinary retention (Primary Dx); Elevated PSA; Benign prostatic hyperplasia with urinary obstruction Discharge Disposition: Discharged to home or Selfcare [...] the past 12 months has th e [employer], gas, oil, or water [employer] threatened to shut off services in your home? Patient declined 09/03/2023 Social Connection and Isolation Panel [NHANES] A nswer Date Recorded In a typical week, how many times do you talk on the phone with family, friends, or neighbors? Patient declined 09/03/2023 How often do you get togethe r with friends or relatives? Patient declined 09/03/2023 How often do you attend confucianism or anglican serv ices? Patient declined 09/03/2023 Do you belong to any clubs o r organizations such as confucianism groups, unions, fraternal or athletic groups, or [...] Total Score - Questions 1-9 0 07/31 [facility] Occupat ional Health - Occupational Stress [...] place to sleep or slept in a long-term (including now)? Patient declined 09/03/2023 Sexually Active Control Partners Comments Never Sex and Gender Information Value Date Recorded Sex Assigned at Not on file Legal Sex Male 11:18 PM CDT Gender Identity Not on file Sexual Orientation Not on file documented as of this encounter Last Filed Vital Signs Vital Sign Reading Time Taken Comments Blood Pressure 118/62 09/19/2023 9:17 AM STOCK PATCHER Pulse - - Temperature - - Respiratory Rate 18 09/19/2023 9:17 AM STOCK PATCHER Oxygen Saturation 98% 09/19/2023 9:17 AM STOCK PATCHER Inhaled Oxygen Concentration - - Weight 89.8 kg (198 lb) 09/19/2023 9:17 AM STOCK PATCHER Height 182.9 cm (6') 09/19/2023 9:17 AM STOCK PATCHER Body Mass Index 26.85 09/19/2023 9:17 AM STOCK PATCHER documented in this encounter Progress Notes * Ton Ling, MEDICAL CLERICAL ASSISTANT, AERODYNAMICS PROFESSOR - 09/19/2023 9:30 AM CST UROLOGY [facility] [address] [facility], [address] [place] [address] PHONE: FAX: Assessment & Plan Urinary retention- Resolved BPH- Continue tamsulosin and finasteride. Follow-up in 4 weeks for a repeat UA/PVR check. Patient educated on the signs and symptoms of UTI/urinary retention and when/where to seek help. ?? Elevated PSA- MRI completed that showed 157 [...] office for follow-up. Patient was admitted to [facility] on 09/02/2023 for altered mental status [...] blood random bladder scan showed 91 cc. The following portions of the patient's chart [...] Pseudomonas aeruginosa Final Susceptibility Pseudomonas aeruginosa - [facility] IIB Cefepime Susceptible mcg/ml Gentamicin Resistant Levofloxacin Susceptible mcg/ml Meropenem Susceptible mcg/ml Piperacillin/Tazobactam Susceptible mcg/ml Tobramycin Susceptible mcg/ml No results found for: TESTOSTTTL No results found for this or any previous visit from the past 365 days. There are no diagnoses linked to this encounter. By: Ton Ling APRN, CNP, 09/19/2023, 9:02 AM STOCK PATCHER Primary Care Physician: Irving Jeffries MD K PATCHER documented in this encounter Procedure Notes * Che Granados RMA - 09/19/2023 9:30 AM CSTAssociated Order(s): RAN,POST-VOID RES,US,NON-IMAGING POCT Bladder Scan collected per standing order of Ton Ling NP on 09/19/2023 PVR= 91 ML K PATCHER documented in this encounter Plan of Treatment Not on file documented as of this encounter Procedures Procedure Name Priority Date/Time Associated Diagnosis Comments RAN,POST-VOID RES,US,NON-IMAGING Routine 09/19/2023 9:30 AM STOCK PATCHER Urinary retention documented in this encounter Results * RAN,POST-VOID RES,US,NON-IMAGING (09/19/2023 9:30 AM STOCK PATCHER) Narrative Che Granados RMA - 09/19/2023 9:30 AM STOCK PATCHER Che Granados RMA ? 09/19/2023 ??9:28 AM POCT Bladder Scan collected per standing order of Ton Ling NP on 09/19/2023 PVR= 91 ML us Ton Ling APRN, CNP [place] - SURGERY Final Result documented in this encounter Visit Diagnoses Diagnosis Urinary retention- Primary Retention of urine, unspecified Elevated PSA Elevated prostate specific antigen (PSA) Benign prostatic hyperplasia with urinary obstruction documented in this encounter Additional Health Concerns Assessment Noted Time PHQ-9 Depression Total Score: 0 08/14/19 24 3:02 PM STOCK PATCHER documented as of this encounter Care Teams Tank Builder Helper Relationship Specialty Start Date End Date Irving Jeffries MD [address] [place] [address] PCP - General Internal Medicine 07/16/21 07/04/24 Ton Ling, MEDICAL CLERICAL ASSISTANT, AERODYNAMICS PROFESSOR [address] [place] [address] Nurse Practitioner Advanced Practice Nurse 04/24/23 Ame Scanlon APRN, AERODYNAMICS PROFESSOR #2 [facility] [address] [place] [address] Nurse Practitioner Cardiology 08/23/23 Michael Ahmadi MD [address] [place] [address] Consulting Physician Medical Oncology 07/26/23 documented as of this encounter
--- OUTSIDE RECORDS SUMMARY | 2024-07-28 14:07 | XMS_ITS | Encounter Summary ---
Author Organization [facility] Address [address] [place] [address] Phone Care Team Providers Care Coke Worker Name Role Phone Irving Jeffries MD Primary Care Provider Ton Ling U.S. COMMISSIONER, TOBACCO WETTER Unavailable Ame Scanlon U.S. COMMISSIONER, TOBACCO WETTER Unavailable + [phone] Michael Ahmadi MD Unavailable Reason for Visit * Auth/Cert (Routine) Specialty Diagnoses / Procedures Referred By Geeta t Referred To Contact Referral ID Status Reason Start Date Expiration Date Visits Re quested Visits Authorized [id number] 1 1 Encounter Details Date Type Department Care Team (Latest Contact Info) Description 09/20/2023 2:30 PM CONTOUR PATH TAPE MILL OPERATOR Home Care Visit [facility] [address] [place] [address] Mónica Merrill UPSET OPERATOR [place] - PRIORITY VISIT Social History Tobacco Use Types Packs/Day Years Used Date Smoking Tobacco: Former Cigarettes 2 20 Passive Smoke Exposure: Past Smokeless Tobacco: Never Alcohol Use Standard Drinks/Week Comments Not Currently 0 (1 standard drink = 0.6 oz pur e alcohol) [facility] Utilities Answer Date Recorded In [...] declined 09/03/2023 How often do you attend protestant or roman catholic serv ices? Patient declined 09/03/2023 Do you belong to any clubs o r organizations such as protestant groups, unions, fraternal or athletic groups, or [...] Sign Reading Time Taken Comments Blood Pressure 120/60 09/20/2023 2:59 PM CONTOUR PATH TAPE MILL OPERATOR Pulse 95 09/20/2023 2:59 PM CONTOUR PATH TAPE MILL OPERATOR Temperature 36.4 ??C (97.6 ??F) 09/20/2023 2:59 PM CS T Respiratory Rate 18 09/20/2023 2:59 PM CONTOUR PATH TAPE MILL OPERATOR Oxygen Saturation 98% 09/20/2023 2:59 PM CONTOUR PATH TAPE MILL OPERATOR Inhaled Oxygen Concentration - - Weight - - Height - - Body Mass Index - - documented in this encounter Plan of Treatment Not on file documented as of this encounter Visit Diagnoses Not on filedocumented in this encounter Additional Health Concerns Assessment Noted Time PHQ-9 Depression Total Score: 0 08/14/19 3:02 PM CONTOUR PATH TAPE MILL OPERATOR documented as of this encounter Care Teams Coke Worker Relationship Specialty Start Date End Date Irving Jeffries MD [address] [place] [address] PCP - General Internal Medicine 07/16/21 07/04/24 Ton Ling, U.S. COMMISSIONER, TOBACCO WETTER [address] [place] [address] Nurse Practitioner Advanced Practice Nurse 04/24/23 Ame Scanlon APRN, YAA [address] [facility] AM[place]AT[place] [facility] [address] [place] [address] Nurse Practitioner Cardiology 08/23/23 Michael Ahmadi MD [address] [place] [address] Consulting Physician Medical Oncology 07/26/23 documented as of this encounter
--- OUTSIDE RECORDS SUMMARY | 2024-07-28 14:07 | XMS_ITS | Encounter Summary ---
Author Organization [facility] Address [address] [facility] [place] [address] Phone Care Team Providers Care Straddle Carrier Operator Name Role Phone Irving Jeffries MD Primary Care Provider Ton Ling GANG SAWYER, RAW MATERIAL HANDLER Unavailable Ame Scanlon GANG SAWYER, RAW MATERIAL HANDLER Unavailable [phone] Michael Ahmadi MD Unavailable Reason for Visit * Auth/Cert (Routine) Specialty Diagnoses / Procedures Referred By Geeta t Referred To Contact Diagnoses THROMBOCYTOPENIA Procedures PRE / POST CARE FOR PROCEDURAL AREA Referral ID Status Reason Start Date Expiration Date Visits Re quested Visits Authorized [id number] 1 1 Encounter Details Date Type Department Care Team (Latest Contact Info) Description 09/22/2023 6:12 AM SHIPPING AND RECEIVING ASSOCIATE - 09/22/2023 9:48 AM SHIPPING AND RECEIVING ASSOCIATE [facility] [address] [place] [id number] Provider, Not On File Michael Rust MD [address] [place] [address] Discharge Disposition: Discharged to home or Selfcare Social History Tobacco Use Types Packs/Day Years Used Date Smoking Tobacco: Former Cigarettes 2 20 Passive Smoke Exposure: Past Smokeless Tobacco: Never Alcohol Use Standard Drinks/Week Comments Not Currently 0 (1 standard drink = 0.6 oz pur e alcohol) [facility] Utilities Answer Date Recorded In [...] declined 09/03/2023 How often do you attend moravian or buddhism serv ices? Patient declined 09/03/2023 Do you belong to any clubs o r organizations such as moravian groups, unions, fraternal or athletic groups, or [...] 0 07/31 [facility] - Occupational [...] Sign Reading Time Taken Comments Blood Pressure 117/56 09/22/2023 9:30 AM SHIPPING AND RECEIVING ASSOCIATE Pulse 81 09/22/2023 9:30 AM SHIPPING AND RECEIVING ASSOCIATE Temperature 36.6 ??C (97.8 ??F) 09/22/2023 9:30 AM CS T Respiratory Rate 16 09/22/2023 9:30 AM SHIPPING AND RECEIVING ASSOCIATE Oxygen Saturation 97% 09/22/2023 9:30 AM SHIPPING AND RECEIVING ASSOCIATE Inhaled Oxygen Concentration - - Weight 84.9 kg (187 lb 3.2 oz) 09/22/2023 6:40 A M SHIPPING AND RECEIVING ASSOCIATE Height 182.9 cm (6') 09/22/2023 6:40 AM SHIPPING AND RECEIVING ASSOCIATE Body Mass Index 25.39 09/22/2023 6:40 AM SHIPPING AND RECEIVING ASSOCIATE documented in this encounter Medications at Time [...] No distress noted. Dressing has minimal Drainage. PING AND RECEIVING ASSOCIATE * Interdisciplinary - Ameena Esquivel RN - 09/22/2023 8:30 AM CST Patient returned to room at this time from IR. Patient on bedrest with bathroom privileges. Patientdeclining anything to eat. Continue plan of care at this time. PING AND RECEIVING ASSOCIATE * Plan of Care - Ameena Esquivel [...] Transition of Care Outcome: Ongoing (see interventions/notes) PING AND RECEIVING ASSOCIATE documented in this encounter Plan of Treatment Not on file documented as of this encounter Procedures Procedure Name Priority Date/Time Associated Diagnosis Comments MYELODYSPLASTIC SYNDROME, DIAGNOSTIC FISH [facility] MDSDF Routine 09/22/2023 8:00 AM SHIPPING AND RECEIVING ASSOCIATE CHROMOSOME ANALYSIS, HEMATOLOGICAL DISORDERS, BONE MARROW, [place] CHRBM Routine 09/22/2023 8:00 AM SHIPPING AND RECEIVING ASSOCIATE PRE / POST CARE FOR PROCEDURAL AREA 09/22/2023 7:30 AM SHIPPING AND RECEIVING ASSOCIATE THROMBOCYTOPENIA COMPLETE BLOOD COUNT (CBC) WITHOUT DIFF STAT 09/22/2023 6:40 AM SHIPPING AND RECEIVING ASSOCIATE documented in this encounter Results * MYELODYSPLASTIC SYNDROME, DIAGNOSTIC FISH [place] MDSDF (09/22/2023 8:00 AM SHIPPING AND RECEIVING ASSOCIATE) [facility] MDSDF INTERPRETATION Test Not Performed 09/29/2023 1:03 PM SHIPPING AND RECEIVING ASSOCIATE [facility] Comment: MDS, Diagnostic FISH was cancelled on 09/29/2023 at 13:03; Based on other test results additional testing not required. MDS FISH order was cancelled per laboratory protocol (Abelardo et al., Amer J Clin Pathol 146:86-94, 2016; [facility] MDS Algorithm: [email or web address]-mmfiles/Myelodysplastic_S yndrome_Guideline_ to_Diagnosis_and_Follow-up.pdf) with Probes -RPN1(G)/MECOM(R), -TP53(R)/D17Z1(G), -D8Z2(G)/MYC(R), -D73Y488(R)/20QTER(G), -P7Q241(G)/EGR1(R), -D7Z1(G)/F3H739(R) Test Performed by: [place] [address] Senior Counsel: Sidney Wade M.D. Ph.D.; CLIA# [id number] Bone Marrow Non-Phlebotomy Collection / Unknown 09/22/2023 8:00 AM SHIPPING AND RECEIVING ASSOCIATE 09/22/2023 9:02 AM SHIPPING AND RECEIVING ASSOCIATE [facility] LAB SEND OUT GENETIC Fin al Result [facility] * CHROMOSOME ANALYSIS, HEMATOLOGICAL DISORDERS, BONE MARROW, [place] CHRBM (09/22/2023 8:00 AM SHIPPING AND RECEIVING ASSOCIATE) Pathologist [facility] CHRBM RESULT SUMMARY See Interpretation 09/29/2023 11:34 AM SHIPPING AND RECEIVING ASSOCIATE [facility] CHRBM INTERPRETATION SEE NOTE 09/29/2023 11:34 AM [facility] Comment: Of 20 metaphases, 9 metaphases were normal and 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 In adult males, the absence of a Y chromosome without any other abnormality in metaphases from bone marrow is likely age-related (Wiktor et al., Leuk Res 35:9149-3788, 2011). Since this conventional chromosome study was successful, MDS, Diag FISH was cancelled per lab protocol (Abelardo Serrato et al., AJCP, 146:86-94, 2016; [facility] MDS Algorithm: [email or web address]/it-mmfiles/Myelodysplastic_Syndrome_G uideline_to_Diagnosis_and_Follow-up.pdf). CHRBM RESULT 45,X,-Y[11]/46,XY[ 9] 09/29/2023 11:34 AM [facility] CHRBM REASON FOR REFERRAL thrombocytopenia 09/29/2023 11:34 AM [facility] CHRBM SPECIMEN Bone Marrow 11:34 AM [facility] CHRBM METHOD Culture without mitogens 09/29/2023 11:34 AM [facility] CHRBM BANDING METHOD SEE NOTE 09/29/2023 11:34 AM [facility] Comment: Band Resolution: <400 Stain Name Cells ? Cells Counted Karyograms Prepared ?Analyzed ? GTL ?20 ?0 ? 2 ? Total ?20 ?0 ? 2 ? Rausch to Stain Name: GTL=G-banding; QFQ=Q-banding; DAPI=DAPI-staining; CBL=C-banding; AGNOR=Silver-staining; NON=Non-banded The sum of Cells Analyzed and Cells Counted equals the total cells examined. CHRBM ADDITIONAL INFORMATION SEE NOTE 09/29/2023 11:34 AM [facility] Comment: A portion of the testing process was performed at [facility] site [id number] and [id number]. CHRBM RELEASED BY Scott Aguilar M.D. 09/29/2023 11:34 AM SHIPPING AND RECEIVING ASSOCIATE [facility] Comment: Test Performed by: [address] [address] Senior Counsel: Sidney Wade M.D. Ph.D.; CLIA# [id number] Bone Marrow Non-Phlebotomy Collection / Unknown 09/22/2023 8:00 AM SHIPPING AND RECEIVING ASSOCIATE 09/22/2023 9:04 AM SHIPPING AND RECEIVING ASSOCIATE us Michael Ahmadi MD LAB SEND OUTS Final Re sult [facility] US * (ABNORMAL) Complete Blood Count (CBC) WITHOUT Diff (09/22/2023 6:40 AM SHIPPING AND RECEIVING ASSOCIATE) WBC 8.31 4.00 - 12.00 10(3)/mcL 09/22/2023 7:43 AM [facility] RBC 3.75(L) 4.40 - 5.80 10(6)/mcL 09/22/2023 7:43 AM [facility] HEMOGLOBIN (HGB) 10.7(L) 13.0 - 16.5 g/dL 09/22/2023 7:43 AM [facility] HEMATOCRIT (HCT) 33.1(L) 38.0 - 50.0 % 09/22/2023 7:43 AM [facility] MCV 88.3 82.0 - 96.0 fL 09/22/2023 7:43 AM [facility] MCH 28.5 26.0 - 32.0 pg 09/22/2023 7:43 AM [facility] MCHC 32.3 31.0 - 36.0 g/dL 09/22/2023 7:43 AM [facility] PLATELET COUNT 60(L) 140 - 440 10(3)/mcL 09/22/2023 7:43 AM [facility] RDW 15.0 11.8 - 15.5 % 09/22/2023 7:43 AM SHIPPING AND RECEIVING ASSOCIATE [facility] MPV 09/22/2023 7:43 AM SHIPPING AND RECEIVING ASSOCIATE [facility] Blood Venipuncture / Unknown 09/22/2023 6:40 AM SHIPPING AND RECEIVING ASSOCIATE 09/22/2023 6:51 AM SHIPPING AND RECEIVING ASSOCIATE us Rigo Marin MD HEMATOLOGY ORDERABLES Final Result [facility] [address] [place] [address] documented in this encounter Visit Diagnoses Not on filedocumented in this encounter Administered Medications Inactive Administered Medications - up to 3 most recent administrations Medication Order MAR Action Action Date Dose Rate Site 0.9 % sodium chloride solution at 10 mL/hr, Intravenous, CONTINUOUS, Starting on Mon09/22/23 at 0700, Until Mon09/22/23 at 1148 New Bag 09/22/2023 6:42 AM SHIPPING AND RECEIVING ASSOCIATE 500 mL 10 mL/hr FENTANYL CITRATE (PF) 100 MCG/2ML IJ SOLN 1 dose, Starting on Mon09/22/23 at 0720, Until Mon09/22/23 at 1148, Created by cabinet override MIDAZOLAM HCL 2 MG/2ML IJ SOLN 1 dose, Starting on Mon09/22/23 at 0720, Until Mon09/22/23 at 1148, Created by cabinet override documented in this encounter Active and Recently Administered Medications Times are shown in SHIPPING AND RECEIVING ASSOCIATE. Continuous Medication Order 09/20/2023 09/21/2023 09/22/2023 0.9 % sodium chloride solution at 10 mL/hr, Intravenous, CONTINUOUS, Starting on Mon09/22/23 at 0700, Until Mon09/22/23 at 1148 [id number] (New Bag - Prov ider: Ameena Esquivel RN)[id number] (Stopped - Provider: Ameena Esquivel RN) No Frequency Medication Order 09/20/2023 09/21/2023 09/22/2023 FENTANYL CITRATE (PF) 100 MCG/2ML IJ SOLN 1 dose, Starting on Mon09/22/23 at 0720, Until 2/23/24 at 1148, Created by cabinet override MIDAZOLAM HCL 2 MG/2ML IJ SOLN 1 dose, Starting on Mon09/22/23 at 0720, Until Mon09/22/23 at 1148, Created by cabinet override documented in this encounter Additional Health Concerns Assessment Noted Time PHQ-9 Depression Total Score: 0 08/14/19 24 3:02 PM SHIPPING AND RECEIVING ASSOCIATE documented as of this encounter Care Teams Straddle Carrier Operator Relationship Specialty Start Date End Date Irving Jeffries MD [address] [place] [address] PCP - General Internal Medicine 07/16/21 07/04/24 Ton Ling APRN, RAW MATERIAL HANDLER [address] [place] [address] Nurse Practitioner Advanced Practice Nurse 04/24/23 Ame Scanlon APRN, RAW MATERIAL HANDLER #[address] [facility] [address] [place] [address] Nurse Practitioner Cardiology 08/23/23 Michael Ahmadi MD [address] [place] [address] Consulting Physician Medical Oncology 07/26/23 documented as of this encounter
--- OUTSIDE RECORDS SUMMARY | 2024-07-28 14:07 | XMS_ITS | Encounter Summary ---
Author Organization [facility] HealthCare Address [address] [place] [address] Phone Care Team Providers Care Vice President Marketing & Development Name Role Phone Irving Jeffries MD Primary Care Provider Ton Ling MANAGER MAINTENANCE, MANAGER LPN Unavailable [phone] Ame Scanlon MANAGER MAINTENANCE, MANAGER LPN Unavailable Michael Ahmadi MD Unavailable [phone] Reason for Referral * Radiology Services (Routine) - Closed Specialty Diagnoses / Procedures Referred By Geeta t Referred To Contact Radiology Diagnoses Thrombocytopenia (HCC) Procedures CT GUIDED BONE BIOPSY DEEP Michael Ahmadi MD [address] [place] [address] Phone: tel: fax: Referral ID Status Reason Start Date Expiration Date Visits Re quested Visits Authorized [id number] Closed 08/29/2023 1 1 MOTIVE HARDWARE ENGINEER Reason for Visit * Reason Comments Follow-up Encounter Details Date Type Department Care Team (Latest Contact Info) Description 08/29/2023 9:40 AM AUTOMOTIVE HARDWARE ENGINEER Office Visit [facility] Oncology Services [address] [place] [address] Michael Ahmadi MD [address] [place] [address] Thrombocytopenia (HCC) (Primary Dx); Chronic undifferentiated schizophrenia (HCC); Anemia, unspecified type Discharge Disposition: Discharged to home or Selfcare Social History Tobacco Use Types Packs/Day Years Used Date Smoking Tobacco: Former Cigarettes 2 20 Passive Smoke Exposure: Past Smokeless Tobacco: Never Tobacco Cessation:Counseling Given: Not Answered Alcohol Use Standard Drinks/Week Comments Not Currently 0 (1 standard drink = 0.6 oz pur e alcohol) [facility] Utilities Answer Date Recorded In the past 12 months has [employer], gas, oil, or water [employer] threatened to shut off services in your [...] answer 08/14/2023 How often do you attend [facility] or [facility]? Patient unable to answer 08/14/2023 Do [...] place to sleep or slept in a half-way (including now)? Patient unable to answer 08/14/2023 Sexually Active Control Partners Comments Never Sex and Gender Information Value Date Recorded Sex Assigned at Not on file Legal Sex Male 11:18 PM CDT Gender Identity Not on file Sexual Orientation Not on file documented as of this encounter Last Filed Vital Signs Vital Sign Reading Time Taken Comments Blood Pressure 155/87 08/29/2023 10:05 AM AUTOMOTIVE HARDWARE ENGINEER Pulse 87 08/29/2023 10:05 AM AUTOMOTIVE HARDWARE ENGINEER Temperature 36.6 ??C (97.9 ??F) 08/29/2023 10:[address] Respiratory Rate 20 08/29/2023 10:05 AM AUTOMOTIVE HARDWARE ENGINEER Oxygen Saturation 99% 08/29/2023 10:05 AM AUTOMOTIVE HARDWARE ENGINEER Inhaled Oxygen Concentration - - Weight 86 kg (189 lb 8 oz) 08/29/2023 10:[address] Height 182.9 cm (6') 08/29/2023 10:05 AM AUTOMOTIVE HARDWARE ENGINEER Body Mass Index 25.7 08/29/2023 10:05 AM AUTOMOTIVE HARDWARE ENGINEER documented in this encounter Progress Notes * Mayra Duenas - 08/29/2023 9:40 AM CST Outpatient Hem/Onc Progress Note PROGRESS NOTE Iván Dumont is a 77 y.o. male seen today for follow up of severe thrombocytopenia. Patient requests to be called Norberto. Norberto is here today accompanied by Kevin from facility for support. Kevin reports working for [facility] care for the last 50 years, with Norberto in her care for the last 20+ years. Kevin denies any known family to Norberto. She recites his mother and sister passed since he moved into facility. He was originally worked up for thrombocytopenia by my colleague Gilda IRAHETA. on review of his labs in February of 2023 his platelet count was 79 K hemoglobin was 13.3 and normal white blood cell at 7.3. In March of 2023 platelet count dropped to 50 K. on 04/26/2023 platelet countwas 33 K with hemoglobin 12.7 and normal [...] on 07/12/23 for clinical suspicion of ITP. Since I last saw him he was admitted to [facility] 07/28/23 through 08/07/23 for atrial fibrillation RVR state, RSV infection, and urinary retention. Barakat catheter was placed to improve urinary retention with Xarelto started for A.fib. He ret urned to [facility] on 08/09/23 for blood present in catheter; discharged with advice to hold Xarelto for 2 days to prevent recurrent bleeding. Patient was seen by Ton Gonzalez MANAGER COUNCIL on 08/15/23 with barakat removed, Tamsulosin increased to BID, and start Finasteride. He returned on 08/18/23 for gross hematuria and inability to urinate. Barakat catheter was again placed with plans for urology evaluation on 09/11/23. While admitted patient was given course of steroids for suspected sepsis with improvement in platelets appreciated. Due to this hospital admission BMBX requested was delayed. DIAGNOSIS/TREATMENT HISTORY: Reviewed patients past medical, surgical, social, and family history. No outpatient medications have been marked as taking for the 08/29/23 encounter (Office Visit) with Michael Ahmadi MD. Allergies as of 08/29/2023 ??? (Not on File) REVIEW OF SYSTEMS Review of Systems Unable to perform ROS: Mental acuity Physical Exam Physical Exam PAIN ASSESSMENT: no verbal complaints DATA: Lab Results Component Value Date WBC 7.47 08/18/2023 RBC 3.41 (L) 08/18/2023 HEMOGLOBIN 10.3 (L) 08/18/2023 HEMATOCRIT 32.1 (L) 08/18/2023 MCV 94.1 08/18/2023 MCH 30.2 08/18/2023 MCHC 32.1 08/18/2023 PLATELETCNT 43 (L) 08/18/2023 RDW 15.0 08/18/2023 LYMPHOCYTES 20.1 08/18/2023 RELEOS 0.0 08/18/2023 RELBAS 0.3 08/18/2023 ANC 5.12 08/18/2023 MONOCYTES 0.83 08/18/2023 EOSINOPHILS 0.00 08/18/2023 BASOPHILS 0.02 08/18/2023 Lab Results Component Value Date SODIUM 139 08/18/2023 POTASSIUM 4.1 08/18/2023 CHLORIDE 107 08/18/2023 ANIONGAP 13.1 08/18/2023 GLUCOSE 96 08/18/2023 BUN 13 08/18/2023 CREATININE 0.79 08/18/2023 TOTALPROTEIN 5.9 (L) 08/18/2023 ALBUMIN 3.4 (L) 08/18/2023 CALCIUM 8.6 (L) 08/18/2023 SGPTALT 21 08/18/2023 ALKALINEPHO 62 08/18/2023 07/26/23 CBC OSH: WBC 13.8 HGB 11.9 [...] PSA 8.19 03/01/2023 PSATOTAL 9.75 (H) 04/24/2023 DIAGNOSTIC IMAGING STUDIES: 07/29/23 CT ANGIO CHEST: [...] steatosis Assessment: 1. Thrombocytopenia , severe, worsening. 2. Anemia, normocytic, mild 3. Chronic undifferentiated schizophrenia 4. Elevated PSA, MRI pelvis negative for malignant changes likely related to BPH 5. Urinary retention, barakat catheter in place Plan: 2. Obtain BMBX to assess cause of his continued thrombocytopenia. Discussed procedure of bone marrow biopsy, indications, personnel involved, common and uncommon complications. He is agreeable to proceed at her earliest convenience. 3. Obtain CBC in 4 weeks to monitor levels for need for intervention. Patient will complete these labs at facility. 4. HOLD ALL ANTICOAGULANTS to prevent recurrent bleeding including hematuria secondary to low platelet levels. Reviewed patient should avoid ASA, NSAIDs, and Xarelto. 5. Discussed bleeding precautions with Mahesh given his recent critical platelet level. Encouraged patient to avoid situations that increase his risk for falling. Present to nearest emergency room is episode of bleeding without ability to curb at home. 6. Follow with [facility] for management of urinary retention with barakat catheter in place. 7. Continue to follow with PCP and other specialists for management of chronic medical conditions. Follow up in 4 weeks to review BMBX results The patient was given an opportunity to ask questions, and all questions answered to patient's satisfaction. Patient verbalizes understanding of the plan as outlined above. The documentation for this visit was completed by Mayra Duenas acting as a scribe for Michael Valdovinos MD. 08/29/2023, 10:03 AM AUTOMOTIVE HARDWARE ENGINEER MOTIVE HARDWARE ENGINEER * Michael Ahmadi MD - 08/29/2023 9:40 AM CST Outpatient Hem/Onc Progress Note PROGRESS NOTE Iván Dumont is a 77 y.o. male seen today for follow up of severe thrombocytopenia. Patient requests to be called Norberto. Norberto is here today accompanied by Kevin from facility for support. Kevin reports working for [facility] care for the last 50 years, with Norberto in her care for the last 20+ years. Kevin denies any known family to Norberto. She recites his mother and sister passed since he moved into facility. He was originally worked up for thrombocytopenia by my colleague Gilda IRAHETA. on review of his labs in February of 2023 his platelet count was 79 K hemoglobin was 13.3 and normal white blood cell at 7.3. In March of 2023 platelet count dropped to 50 K. on 04/26/2023 platelet countwas 33 K with hemoglobin 12.7 and normal [...] on 07/12/23 for clinical suspicion of ITP. Since I last saw him he was admitted to [facility] 07/28/23 through 08/07/23 for atrial fibrillation RVR state, RSV infection, and urinary retention. Barakat catheter was placed to improve urinary retention with Xarelto started for A.fib. He ret urned to [facility] on 08/09/23 for blood present in catheter; discharged with advice to hold Xarelto for 2 days to prevent recurrent bleeding. Patient was seen by Ton Gonzalez MANAGER COUNCIL on 08/15/23 with barakat removed, Tamsulosin increased to BID, and start Finasteride. He returned on 08/18/23 for gross hematuria and inability to urinate. Barakat catheter was again placed with plans for urology evaluation on 09/11/23. While admitted patient was given course of steroids for suspected sepsis with improvement in platelets appreciated. Due to this hospital admission BMBX requested was delayed. DIAGNOSIS/TREATMENT HISTORY: Reviewed patients past medical, surgical, social, and family history. Outpatient Medications Marked as Taking for the 08/29/23 encounter (Office Visit) with Michael Ahmadi MD Medication Sig Dispense Refill ??? acetaminophen (TYLENOL) 325 MG Tablet Take 2 Tablets by mouth every 6 hours as needed for Mild or more severe pain. ??? amLODIPine (NORVASC) 10 MG Tablet Take 1 Tablet by mouth daily. 30 Tablet 11 ??? Cephalexin 500 MG Tablet Take by mouth. ??? finasteride (PROSCAR) 5 MG Tablet Take 1 Tablet by mouth daily. 90 Tablet 1 ??? HYDROCHLOROTHIAZIDE PO Take by mouth. ??? LOSARTAN POTASSIUM PO Take by mouth. ??? MELOXICAM PO Take by mouth. ??? metoprolol tartrate (LOPRESSOR) 25 MG Tablet Take 1 Tablet by mouth 2 times daily for 90 days. 180 Tablet 0 ??? omeprazole (PriLOSEC) 20 MG CAPSULE DELAYED RELEASE Take 1 Capsule by mouth in the morning and at bedtime. 30 Capsule 7 ??? SITagliptin Phosphate (JANUVIA PO) Take by mouth. ??? tamsulosin (FLOMAX) 0.4 MG Capsule Take 1 Capsule by mouth in the morning and at bedtime. 60 Capsule 1 Allergies as of 08/29/2023 ??? (No Known Allergies) REVIEW OF SYSTEMS [...] DATA: Lab Results Component Value Date WBC 7.47 08/18/2023 RBC 3.41 (L) 08/18/2023 HEMOGLOBIN 10.3 (L) 08/18/2023 HEMATOCRIT 32.1 (L) 08/18/2023 MCV 94.1 08/18/2023 MCH 30.2 08/18/2023 MCHC 32.1 08/18/2023 PLATELETCNT 43 (L) 08/18/2023 RDW 15.0 08/18/2023 LYMPHOCYTES 20.1 08/18/2023 RELEOS 0.0 08/18/2023 RELBAS 0.3 08/18/2023 ANC 5.12 08/18/2023 MONOCYTES 0.83 08/18/2023 EOSINOPHILS 0.00 08/18/2023 BASOPHILS 0.02 08/18/2023 Lab Results Component Value Date SODIUM 139 08/18/2023 POTASSIUM 4.1 08/18/2023 CHLORIDE 107 08/18/2023 ANIONGAP 13.1 08/18/2023 GLUCOSE 96 08/18/2023 BUN 13 08/18/2023 CREATININE 0.79 08/18/2023 TOTALPROTEIN 5.9 (L) 08/18/2023 ALBUMIN 3.4 (L) 08/18/2023 CALCIUM 8.6 (L) 08/18/2023 SGPTALT 21 08/18/2023 ALKALINEPHO 62 08/18/2023 07/26/23 CBC OSH: WBC 13.8 HGB 11.9 [...] PSA 8.19 03/01/2023 PSATOTAL 9.75 (H) 04/24/2023 DIAGNOSTIC IMAGING STUDIES: 07/29/23 CT ANGIO CHEST: [...] place Plan: 1. Reviewed patient's recent clinical symptoms and lab trend over the last several months with patient and his caregiver from long term, Terri Keith. Reviewed with them that he has had chronic thrombocytopenia with severe worsening couple of months ago, platelet count to less than 10 K. Although it did transiently respond to steroids and did even come in the normal range while he was in the hospitaland getting IV steroids, his platelet count is declining again. 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 However given his age and the fact that he also has some anemia, underlying bone marrow disorder such as MDS needsto be ruled out. 2. Obtain BMBX to assess cause of his continued thrombocytopenia. Discussed procedure of bone marrow biopsy, indications, personnel involved, common and uncommon complications. He is agreeable to proceed at her earliest convenience. will send bone marrow for pathology review, flow cytometry, cytogenetics and MDS fish panel 3. Obtain CBC in 4 weeks to monitor levels for need for intervention. Patient will complete these labs at facility. 4. HOLD ALL ANTICOAGULANTS to prevent recurrent bleeding including hematuria secondary to low platelet levels. Would not resume anticoagulation unless his platelet count is consistently over 50 K. Currently his platelet count is hanging between 30-40 K. Reviewed patient should avoid ASA, NSAIDs, and Xarelto. 5. Discussed bleeding precautions with Angella and Norberto given his recent critical platelet level. Encouraged patient to avoid situations that increase his risk for falling. Present to nearest emergency room is episode of bleeding without ability to curb at home. 6. Follow with [facility] for management of urinary retention with barakat catheter in place. 7. Continue to follow with PCP and other specialists for management of chronic medical conditions. Follow up in 4 weeks to review BMBX results The patient was given an opportunity to ask questions, and all questions answered to patient's satisfaction. Patient verbalizes understanding of the plan as outlined above. The documentation for this visit was completed by Mayra Duenas acting as a scribe for Michael Valdovinos MD. 08/29/2023, 10:53 AM AUTOMOTIVE HARDWARE ENGINEER The documentation recorded by the scribe was completed while in the exam room with me and the patient.?? The documentation accurately reflects the service I personally performed and the decisions made by me. I have confirmed and edited the documentation as necessary. Michael Ahmadi MD 08/29/2023, 10:54 AM AUTOMOTIVE HARDWARE ENGINEER MOTIVE HARDWARE ENGINEER documented in this encounter Miscellaneous Notes * Interdisciplinary - Colleen Cherry - 08/29/2023 9:40 AM CST The patient reports no physical complaints. Pain score is 0. MOTIVE HARDWARE ENGINEER * Interdisciplinary - Colleen Cherry - 08/29/2023 9:40 AM CST AVS printed. The patient will follow up in 1 month with labs at the facility and bone marrow bx prior. MOTIVE HARDWARE ENGINEER documented in this encounter Plan of Treatment Not on file documented as of this encounter Procedures Procedure Name Priority Date/Time Associated Diagnosis Comments COMPLETE BLOOD COUNT (CBC) WITH DIFF Routine 09/20/2023 12:00 AM AUTOMOTIVE HARDWARE ENGINEER Thrombocytopenia (HCC) documented in this encounter Results * CT GUIDED BONE BIOPSY DEEP (09/22/2023 8:19 AM AUTOMOTIVE HARDWARE ENGINEER) Anatomical Region Laterality Modality BODY N/A Computed Tomogra phy 09/22/2023 12:5 2 PM AUTOMOTIVE HARDWARE ENGINEER Addenda Addendum by Rigo Marin MD on 10/09/2023 8:24 AM CDT ADDENDUM REPORT: ADDENDUM: This addendum report supersedes the original report dated 09/22/2023 [Pathology revealed Normocellular marrow with trilineage hematopoiesis. ??No morphologic evidence of myeloid neoplasm. Absent iron stores. No increase in reticulin fibrosis. No clonal B-cell or increased blast population detected. END OF ADDENDUM REPORT EXAM DESCRIPTION: ?? CT GUIDED BONE BIOPSY DEEP REASON FOR STUDY: ?? thrombocytopenia ?? COMPARISON: CT dated 09/03/2023 PERFORMING PROVIDER: Rigo Marin MD. ANESTHESIA: 1. ??Local Anesthesia: ?? 5 ??mL ?? 1% lidocaine 2. ??IV conscious Sedation: ?? 1 ?mg ?Versed , ?? 50 ?mcg ? Fentanyl 3. ??Sedation time: ??25 ??minutes TECHNIQUE/FINDINGS: The procedure and complications were discussed with the ?? patient ??and informed consent by the ?? patient ??was obtained. The patient was placed ?? prone ??and a limited CT of the ?? pelvis ?? was performed. ??A radiopaque marker was placed over the region of interest. ??A timeout was performed to verify patient identity and procedure. The patient was monitored before, during and after the procedure by ?? a qualified radiology nurse . ??Conscious sedation was administered as described above. The site was prepped and draped in a sterile fashion. ??Local anesthesia was provided at the cutaneous surface and along the biopsy track. ??A a bone biopsy introducer was advanced in stages under CT guidance. Needle placement was documented with CT images. ?? Blood was aspirated and a piece of core bone biopsy was obtained. ?? The samples were sent to the pathology service. ??Final pathology pending. ??A final post biopsy image showed no significant complications. CT imaging performed using dose optimization techniques as appropriate to exam in accordance with CT guided procedure protocols. The patient tolerated the procedure well. ??The patient was transferred to the holding area in stable condition. FLUOROSCOPY TIME: ?? No fluoroscopy performed. ??The radiation dose: Total DLP 747 mGy cm PROCEDURE TIME: ?? 25 minutes IMPRESSION: Successful CT guided random bone marrow biopsy. THIS IS AN ELECTRONICALLY VERIFIED FINAL REPORT 09/22/2023 12:52 PM - Electronically signed by ??Rigo JOAQUIN: JEMAL D: ??09/22/2023 12:52 PM T: ??09/22/2023 12:52 PM Report ID: [id number] Reading Location: ??[id number] THIS IS AN ELECTRONICALLY VERIFIED FINAL REPORT 10/09/2023 8:22 AM ??Addendum Electronically signed by Rigo JOAQUIN: JEMAL D: ??10/09/2023 8:22 AM T: ??10/09/2023 8:22 AM Report ID: [id number] Reading Location: ??[id number] Impressions 09/22/2023 12:54 PM AUTOMOTIVE HARDWARE ENGINEER IMPRESSION: Successful CT guided random bone marrow biopsy. Narrative 09/22/2023 12:54 PM AUTOMOTIVE HARDWARE ENGINEER EXAM DESCRIPTION: ?? CT GUIDED BONE BIOPSY DEEP REASON FOR STUDY: ?? thrombocytopenia ?? COMPARISON: CT dated 09/03/2023 PERFORMING PROVIDER: Rigo Marin MD. ANESTHESIA: 1. ??Local Anesthesia: ?? 5 ??mL ?? 1% lidocaine 2. ??IV conscious Sedation: ?? 1 ?mg ?Versed , ?? 50 ?mcg ? Fentanyl 3. ??Sedation time: ??25 ??minutes TECHNIQUE/FINDINGS: The procedure and complications were discussed with the ?? patient ??and informed consent by the ?? patient ??was obtained. The patient was placed ?? prone ??and a limited CT of the ?? pelvis ?? was performed. ??A radiopaque marker was placed over the region of interest. ??A timeout was performed to verify patient identity and procedure. The patient was monitored before, during and after the procedure by ?? a qualified radiology nurse . ??Conscious sedation was administered as described above. The site was prepped and draped in a sterile fashion. ??Local anesthesia was provided at the cutaneous surface and along the biopsy track. ??A a bone biopsy introducer was advanced in stages under CT guidance. Needle placement was documented with CT images. ?? Blood was aspirated and a piece of core bone biopsy was obtained. ?? The samples were sent to the pathology service. ??Final pathology pending. ??A final post biopsy image showed no significant complications. CT imaging performed using dose optimization techniques as appropriate to exam in accordance with CT guided procedure protocols. The patient tolerated the procedure well. ??The patient was transferred to the holding area in stable condition. FLUOROSCOPY TIME: ?? No fluoroscopy performed. ??The radiation dose: Total DLP 747 mGy cm PROCEDURE TIME: ?? 25 minutes THIS IS AN ELECTRONICALLY VERIFIED FINAL REPORT 09/22/2023 12:52 PM - Electronically signed by ??Rigo Marin M.D. KN: JEMAL D: ??09/22/2023 12:52 PM T: ??09/22/2023 12:52 PM Report ID: [id number] Reading Location: ??[id number] Procedure Note Rigo Marin MD - 09/22/2023 EXAM DESCRIPTION: CT GUIDED BONE BIOPSY DEEP REASON FOR STUDY: thrombocytopenia COMPARISON: CT dated 09/03/2023 PERFORMING PROVIDER: Rigo Marin MD. ANESTHESIA: 1. Local Anesthesia: 5 mL 1% lidocaine 2. IV conscious Sedation: 1 mg Versed , 50 mcg Fentanyl 3. Sedation time: 25 minutes TECHNIQUE/FINDINGS: The procedure and complications were discussed with the patient and informed consent by the patient was obtained. The patient was placed prone and a limited CT of the pelvis was performed. A radiopaque marker was placed over the region of interest. A timeout was performed to verify patient identity and procedure. The patient was monitored before, during and after the procedure by a qualified radiology nurse . Conscious sedation was administered as described above. The site was prepped and draped in a sterile fashion. Local anesthesia was provided at the cutaneous surface and along the biopsy track. A a bone biopsy introducer was advanced in stages under CT guidance. Needle placement was documented with CT images. Blood was aspirated and a piece of core bone biopsy was obtained. The samples were sent to the pathology service. Final pathology pending. A final post biopsy image showed no significant complications. CT imaging performed using dose optimization techniques as appropriate to exam in accordance with CT guided procedure protocols. The patient tolerated the procedure well. The patient was transferred to the holding area in stable condition. FLUOROSCOPY TIME: No fluoroscopy performed. The radiation dose: Total DLP 747 mGy cm PROCEDURE TIME: 25 minutes THIS IS AN ELECTRONICALLY VERIFIED FINAL REPORT 09/22/2023 12:52 PM - Electronically signed by Rigo Marin M.D. KN: JEMAL Report ID: [id number] Reading Location: [place] [address] IMPRESSION: Successful CT guided random bone marrow biopsy. 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, chronic condition Anemia, unspecified type Thrombocytopenia (HCC) Thrombocytopenia, unspecified documented in this encounter Additional Health Concerns 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 07/28/2023 09/04/2023 8:45 AM AUTOMOTIVE HARDWARE ENGINEER Assessment Noted Time PHQ-9 Depression Total Score: 0 08/14/19 3:02 PM AUTOMOTIVE HARDWARE ENGINEER documented as of this encounter Care Teams Vice President Marketing & Development Relationship Specialty Start Date End Date Irving Jeffries MD [address] [place] [address] PCP - General Internal Medicine 07/16/21 07/04/24 Ton Ling, MANAGER MAINTENANCE, MANAGER LPN [address] [place] [address] Nurse Practitioner Advanced Practice Nurse 04/24/23 Ame Scanlon APRN, MANAGER LPN #[address] [facility] [address] [place] [address] Nurse Practitioner Cardiology 08/23/23 Michael Ahmadi MD [address] [place] [address] Consulting Physician Medical Oncology 07/26/23 documented as of this encounter
--- OUTSIDE RECORDS SUMMARY | 2024-07-28 14:07 | XMS_ITS | Encounter Summary ---
Author Organization [facility] Address [address] [place] [address] Phone Care Team Providers Care Drainage Design Coordinator Name Role Phone Irving Jeffries MD Primary Care Provider [phone] Ton Ling GLOBAL MARKETING MANAGER, BLUEPRINT MAKER Unavailable [phone] Ame Scanlon GLOBAL MARKETING MANAGER, BLUEPRINT MAKER Unavailable + [phone] Michael Ahmadi MD Unavailable Reason for Visit * Auth/Cert (Routine) Specialty Diagnoses / Procedures Referred By Geeta t Referred To Contact Referral ID Status Reason Start Date Expiration Date Visits Re quested Visits Authorized [id number] 1 1 Encounter Details Date Type Department Care Team (Late st Contact Info) Description 09/07/2023 10:00 AM ROOF FITTER Home [facility] [address] [place] [address] Bea Clark, RN [place] SN - OASIS RESUMPTION OF CARE Social History Tobacco Use Types Packs/Day Years Used Date Smoking Tobacco: Former Cigarettes 2 20 Passive Smoke Exposure: Past Smokeless Tobacco: Never Alcohol Use Standard Drinks/Week Comments Not Currently 0 (1 standard drink = 0.6 oz pur e alcohol) [facility] Utilities Answer Date Recorded In the [...] declined 09/03/2023 How often do you attend methodist or hindu serv ices? Patient declined 09/03/2023 Do you belong to any clubs o r organizations such as methodist groups, unions, fraternal or athletic groups, or [...] 0 07/31 [facility]at [facility] - Occupational [...] Sign Reading Time Taken Comments Blood Pressure 110/60 09/07/2023 10:30 AM ROOF FITTER Pulse 88 09/07/2023 10:30 AM ROOF FITTER Temperature 36.2 ??C (97.1 ??F) 09/07/2023 10:[address] Respiratory Rate - - Oxygen Saturation 98% 09/07/2023 10:30 AM ROOF FITTER Inhaled Oxygen Concentration - - Weight - - Height - - Body Mass Index - - documented in this encounter Plan of Treatment Not on file documented as of this encounter Visit Diagnoses Not on filedocumented in this encounter Additional Health Concerns Assessment Noted Time PHQ-9 Depression Total Score: 0 08/14/19 24 3:02 PM ROOF FITTER documented as of this encounter Home Health Visit - Care Plan Visit Details Visit Type -SN - OASIS DARYL Discipline -Long Term Problems Problem Description Start Date Status Goals Interve ntions FALL PREVENTION (O) Disciplines: SN, PT, OT, COMPOUNDER FLAVORINGS, HCA, BOATBUILDER WOOD, RT 08/09/2023 Active 1 goal linked to scheduled/documen hector intervention 1 goal intervention scheduled/document ed in this visit ALL HH VITAL SIGN PARAMETERS Disciplines: All Home Care 08/09/2023 Active - 1 problem intervention scheduled/document ed in this visit PNEUMONIA ORDERS Disciplines: Long Term Pneumonia Orders 08/09/2023 Active 1 goal linked to scheduled/documen hector intervention 1 goal intervention scheduled/document ed in this visit SAFETY/PREVENTI ON EDUCATION Disciplines: Long Term Safety/Preventio n Education 08/09/2023 Active - 1 problem intervention scheduled/document ed in this visit SN GENERAL ORDERS Disciplines: Long Term SN General Orders 08/09/2023 Active 1 goal linked to scheduled/documen hector intervention 2 goal interventions scheduled/document ed in this visit DEPRESSION Disciplines: Long Term Depression Risk 08/09/2023 Active 1 goal linked to scheduled/documen hector intervention 1 goal intervention scheduled/document ed in this visit DARYL GENERAL (ORDER ONLY) Disciplines: Long Term SN Resumption of Care 09/07/2023 Active - 1 problem intervention scheduled/document ed in this visit Goals [...] help measures. Target date: 08/31/23 DEPRESSION No Interventions Intervention Associated Problem/Goal Status Variance Visit Notes Fall (Order Only) Description: Shared intervention applicable to all disciplines with a visit frequency order.Patient meets criteria for Fall Program based on MAHC-10 score. Instruct patient/caregiver on fall prevention measures. Problem:FALL PREVENTION (O) Goal:Fall Prevention Completed All HH Vital Sign Parameters (Order Only) Description: Standard [...] on self-care management. Problem:PNEUMONIA ORDERS Goal:Pneumonia Completed Nursing Pressure Injury Prevention (Order Only) Description: [...] Completed Exacerbation/ complications noted at this visit: urinary catheter leaking at insertion. Urologist notified General Nursing Plan of Care (Order Only) [...] went into afib w/RVR. Patient lives at halfway with 24 hour care. Skilled Nurse Focus: catheter maintenance/education Physical Therapy to evaluate and treat for: weakness, deconditioning Occupational Therapy to evaluate and treat for: ADL education with strength conservation Speech Therapy to evaluate and treat for: none ordered Social Work Focus: none ordered Gravel Inspector to provide: none ordered Past Medical History: [...] measures. Problem:DEPRESSION Goal:Depression Completed Depression Education Provided: Lifestyle- Spend time with other people, don't expect to suddenly snap out of depression, often during treatment for depression, sleep and appetite will begin to improve before you begin to feel better Instruction provided to: Patient. Response verbalize understanding. DARYL General (Order Only) Description: DARYL in the last 5 days of cert period: No 77 y.o. male admitted to [facility] for sepsis from 09/03/23 to 09/05/23 Resumption of Home Care Services for weakness, deconditioning, catheter maintenance and education Dr. Jeffries contacted and agrees with plan of care. Ordered services: Skilled Nurse for: catheter maintenance and education PT for: weakness deconditioning, imbalance OT for: none ordered ST for: not needed/ordered at this time Social Work for: not needed/ordered at this time Gravel Inspector for: not needed/ordered at this time Resume other disciplines: PT to evaluate and treat 1 week 1 effective week of 09/08/23. Plan of care orders/ goals reviewed and updated, patient agrees with plan of care Problem:DARYL GENERAL (ORDER ONLY) Completed documented in this encounter Care Teams Drainage Design Coordinator Relationship Specialty Start Date End Date Irving Jeffries MD [address] [place] [address] PCP - General Internal Medicine 07/16/21 07/04/24 Ton Ling APRN, BLUEPRINT MAKER [address] [place] [address] Nurse Practitioner Advanced Practice Nurse 04/24/23 Ame Scanlon APRN, BLUEPRINT MAKER #2 [facility] [address] [place] [address] Nurse Practitioner Cardiology 08/23/23 Michael Ahmadi MD [address] [place] [address] Consulting Physician Medical Oncology 07/26/23 documented as of this encounter
--- OUTSIDE RECORDS SUMMARY | 2024-07-28 14:07 | XMS_ITS | Encounter Summary ---
Author Organization [facility] Address [address] [place] [address] Phone Care Team Providers Care Pastry Assistant Name Role Phone Irving Jeffries MD Primary Care Provider [phone] Ton Ling INVESTOR RELATIONS DIRECTOR, CHEMISTRY TECHNICAL OFFICER Unavailable Ame Scanlon INVESTOR RELATIONS DIRECTOR, CHEMISTRY TECHNICAL OFFICER Unavailable Michael Ahmadi MD Unavailable [phone] Encounter Details Date Type Department Care Team (Late st Contact Info) Description 09/13/2023 Transcribe Orders [facility] Diagnostic Radiology [address] [place] [address] Rigo Marin MD [address] [place] [address] Pre-procedural laboratory examinations (Primary Dx); Encounter for therapeutic drug monitoring; 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 Patient declined 09/03/2023 Social Connection and Isolation Panel [NHANES] A nswer Date Recorded In a typical week, how many times do you talk on the phone with family, friends, or neighbors? Patient declined 09/03/2023 How often do you get togethe r with friends or relatives? Patient declined 09/03/2023 How often do you attend evangelical or congregational serv ices? Patient declined 09/03/2023 Do you belong to any clubs o r organizations such as evangelical groups, unions, fraternal or athletic groups, or [...] 07/31 [facility] of Occupat ional [facility] - Occupational Stress Questionnaire Answer [...] as of this encounter Visit Diagnoses Diagnosis Pre-procedural laboratory examinations- Primary Pre-procedural laboratory examination Encounter for therapeutic drug monitoring Other skilled nursing (current) drug therapy Thrombocytopenia (HCC) Thrombocytopenia, unspecified documented in this encounter Additional Health Concerns Assessment Noted Time PHQ-9 Depression Total Score: 0 08/14/19 24 3:02 PM INSURANCE SALES AGENT documented as of this encounter Care Teams Pastry Assistant Relationship Specialty Start Date End Date Irving Jeffries MD [address] [place] [address] PCP - General Internal Medicine 07/16/21 07/04/24 Ton Ling APRN, CHEMISTRY TECHNICAL OFFICER [address] [place] [address] Nurse Practitioner Advanced Practice Nurse 04/24/23 Ame Scanlon APRN, CHEMISTRY TECHNICAL OFFICER #[address] [facility], [address] [place] [address] Nurse Practitioner Cardiology 08/23/23 Michael Ahmadi MD [address] [place] [address] Consulting Physician Medical Oncology 07/26/23 documented as of this encounter
--- OUTSIDE RECORDS SUMMARY | 2024-07-28 14:07 | XMS_ITS | Encounter Summary ---
Author Organization [employer] Care Team Providers Care Deputy Clerk Name Role Phone Irving Jeffries MD Primary Care Provider [phone] oTn Ling APRN, EARLY CHILDHOOD DIRECTOR Unavailable [phone] Ame Scanlon APRN, EARLY CHILDHOOD DIRECTOR Unavailable + [phone] Michael Ahmadi MD Unavailable [phone] Encounter Details Date Type Department Care Team (Latest Contact Info) Description 08/29/2023 Travel Social History Tobacco Use Types Packs/Day Years Used Date Smoking Tobacco: Former Cigarettes 2 20 Passive Smoke Exposure: Past Smokeless Tobacco: Never Alcohol Use Standard Drinks/Week Comments Not Currently 0 (1 standard drink = 0.6 oz pur e alcohol) [facility] Utilities Answer Date Recorded In the past 12 months has [employer], gas, oil, or water [employer] threatened to shut off services in your [...] often do you attend [facility] or rastafarian services? Patient unable to answer 08/14/2023 Do [...] Total Score - Questions 1-9 0 07/31 [facility] of Occupat ional [facility] - Occupational Stress Questionnaire Answer Date [...] place to sleep or slept in a halfway (including now)? Patient unable to answer 08/14/2023 [...] Time 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 07/28/2023 09/04/2023 8:45 AM FILLING OPERATOR Assessment Noted Time PHQ-9 Depression Total Score: 0 08/14/19 3:02 PM FILLING OPERATOR documented as of this encounter Care Teams Deputy Clerk Relationship Specialty Start Date End Date Irving Jeffries MD [address] [place] [address] PCP - General Internal Medicine 07/16/21 07/04/24 Ton Ling HOTEL CASINO FLOORPERSON, EARLY CHILDHOOD DIRECTOR [address] [place] [address] Nurse Practitioner Advanced Practice Nurse 04/24/23 Ame Scanlon, HOTEL CASINO FLOORPERSON, EARLY CHILDHOOD DIRECTOR [address] [facility] [address] [place] [address] Nurse Practitioner Cardiology 08/23/23 Michael Ahmadi MD [address] [place] [address] Consulting Physician Medical Oncology 07/26/23 documented as of this encounter
--- OUTSIDE RECORDS SUMMARY | 2024-07-28 14:07 | XMS_ITS | Encounter Summary ---
Author Organization [facility] Address [address] [facility] [place] [address] Phone Care Team Providers Care Director Of Graduate Medical Education Name Role Phone Irving Jeffries MD Primary Care Provider Ton Ling PRECISION FILER HAND, MOTION PICTURE PROJECTIONIST APPRENTICE Unavailable Ame Scanlon PRECISION FILER HAND, MOTION PICTURE PROJECTIONIST APPRENTICE Unavailable Michael Ahmadi MD Unavailable [phone] Reason for Referral * Radiology Services (Routine) - Closed Specialty Diagnoses / Procedures Referred By Geeta saavedra Referred To Contact Radiology Diagnoses Thrombocytopenia (HCC) Procedures CT GUIDED BONE BIOPSY DEEP Michael Ahmadi MD [address] [place] [address] Phone: tel: fax: Referral ID Status Reason Start Date Expiration Date Visits Re quested Visits Authorized [id number] Closed 08/29/2023 1 1 GLAZIER Reason for Visit * Auth/Cert (Routine) Specialty Diagnoses / Procedures Referred By Geeta saavedra Referred To Contact Diagnoses THROMBOCYTOPENIA Procedures PRE / POST CARE FOR PROCEDURAL AREA Referral ID Status Reason Start Date Expiration Date Visits Re quested Visits Authorized [id number] 1 1 Encounter Details Date Type Department Care Team (Latest Contact Info) Description 09/22/2023 6:31 AM AUTOGLAZIER - 09/22/2023 11:59 PM AUTOGLAZIER Hospital Encounter [facility] [address] [facility] [place] [address] Michael Ahmadi MD [address] [place] [address] Discharge Disposition: Discharged to home or Selfcare Social History Tobacco Use Types Packs/Day Years Used Date Smoking Tobacco: Former Cigarettes 2 20 Passive Smoke Exposure: Past Smokeless Tobacco: Never Alcohol Use Standard Drinks/Week Comments Not Currently 0 (1 standard drink = 0.6 oz pur e alcohol) [facility] Utilities Answer Date Recorded In the past 12 months has [employer] gas, oil, or water [employer] threatened to shut off services in your home? Patient declined 09/03/2023 Social Connection and Isolation Panel [NHANES] A nswer Date Recorded In a typical week, how many times do you talk on the phone with family, friends, or neighbors? Patient declined 09/03/2023 How often do you get togethe r with friends or relatives? Patient declined 09/03/2023 How often do you attend confucianism or samaritan serv ices? Patient declined 09/03/2023 Do you [...] Questions 1-9 0 07/31 [facility] - Occupational Stress [...] slept in a prison (including now)? Patient declined 09/03/2023 Sexually Active Control Partners Comments Never Sex and Gender Information Value Date Recorded Sex Assigned at Not on file Legal Sex Male 11:18 PM CDT Gender Identity Not on file Sexual Orientation Not on file documented as of this encounter Last Filed Vital Signs Vital Sign Reading Time Taken Comments Blood Pressure 118/78 09/22/2023 8:20 AM AUTOGLAZIER Pulse - - Temperature - - Respiratory Rate 18 09/22/2023 8:20 AM AUTOGLAZIER Oxygen Saturation 95% 09/22/2023 8:20 AM AUTOGLAZIER Inhaled Oxygen Concentration - - Weight - - Height - - Body Mass Index - - documented in this encounter Discharge Instructions * Discharge Instructions* Destiny Gamino RN - 09/22/2023 8:00 AM AUTOGLAZIER Discharge instructions for Bone Marrow Biopsy You may resume your normal diet after the procedure Resume all your medications as prescribed by your doctors. May resume your aspirin or blood thinnermedications in the Am tomorrow You may resume your normal activities as tolerated tomorrow You may take Tylenol for discomfort or use intermittent ice packs if needed. Keep biopsy site covered today You may remove dressing in the Am and shower When to call your doctor Vomiting or nausea that dies not go away Fever over 100.4 or chills Foul smelling discharge from the biopsy site Pain not relieved by medication Bleeding,warmth, redness, or hard swollen area around the site of biopsy GENERAL GUIDELINES FOR MINIMIZING NAUSEA: Do not take pain medication on an empty stomach Eat small portions of foods because they are easier to digest and move through your stomach much faster. Be sure you are staying hydrated. Clear, cool beverages are recommended. Only take what you can tolerate. You might like trying clear soups, flavored gelatin, carbonated beverages, popsicles and ice cubes made of frozen drinks. Avoid the smells of cooking food, especially greasy ones, as the smells make make you nauseated. GLAZIER documented in this encounter Medications at Time [...] by mouth daily. 30 Tablet 11 02/21/2023 cloZAPine (CLOZARIL) 100 MG Tablet Take 50 [...] 09/07/2023 4 documented as of this encounter Progress Notes * Michael Ahmadi MD - 09/22/2023 7:20 AM CST Mayra- can you please call the facility and let them know that his bone marrow biopsy came back fine without any evidence of malignancy or significant abnormality. He does have low iron in the bone marrow, we have already started him on oral iron , he should continue that and we will recheck his labs as originally planned. GLAZIER documented in this encounter Miscellaneous Notes * Interdisciplinary - Destiny Gamino RN - 09/22/2023 7:20 AM CST Spoke with facility. Reviewed allergies, medication list,and history. Patient Instructed to take noAspirin, Advil, Aleve,Ibuprofen for 5 days prior to the procedure.Instructed to be NPO after midnight the day of procedure. Questions answered, with understanding stated by patient. GLAZIER * Destiny Rossi RN - 09/22/2023 7:20 AM CST Transported to CT scan via bed. Procedure explained to pt. Dr. Marin to speak with pt about procedure. Understanding stated and consent signed. Assisted to Ct scan table positioned On abdomen..... GLAZIER documented in this encounter Plan of Treatment Not on file documented as of this encounter Procedures Procedure Name Priority Date/Time Associated Diagnosis Comments CT GUIDED BONE BIOPSY DEEP Routine 09/22/2023 8:19 AM AUTOGLAZIER Thrombocytopenia (HCC) PATHOLOGY BONE MARROW Routine 09/22/2023 8:02 AM AUTOGLAZIER Thrombocytopenia (HCC) documented in this encounter Results * CT GUIDED BONE BIOPSY DEEP (09/22/2023 8:19 AM AUTOGLAZIER) Anatomical Region Laterality Modality BODY N/A Computed Tomogra phy 09/22/2023 12:5 2 PM AUTOGLAZIER Addenda Addendum by Rigo Marin MD on [...] PM T: ??09/22/2023 12:52 PM Report ID: [id number] Reading Location: ??[id number] THIS IS AN ELECTRONICALLY VERIFIED FINAL REPORT 10/09/2023 8:22 AM ??Addendum Electronically signed by Rigo JOAQUIN: JEMAL D: ??10/09/2023 8:22 AM T: ??10/09/2023 8:22 AM Report ID: [id number] Reading Location: ??[id number] Impressions 09/22/2023 12:54 PM AUTOGLAZIER IMPRESSION: Successful CT guided random bone marrow biopsy. Narrative 09/22/2023 12:54 PM AUTOGLAZIER EXAM DESCRIPTION: ?? CT GUIDED BONE BIOPSY [...] PM T: ??09/22/2023 12:52 PM Report ID: [id number] Reading Location: ??[id number] Procedure Note Rigo Marin MD - 09/22/2023 [...] Rigo Marin M.D. KN: JEMAL Report ID: [id number] Reading Location: [place] [address] IMPRESSION: Successful CT guided random bone marrow biopsy. [facility] Denise Ahmadi MD IM CT ORDERABLES Edited Result - Final * Pathology Bone Marrow (09/22/2023 8:02 AM AUTOGLAZIER) FINAL DIAGNOSIS Bone marrow, aspirate, core, and clot: - Normocellular marrow (30% cellular) with trilineage hematopoiesis and no morphologic evidence of a myeloid neoplasm - Absent iron stores - No significant increase in reticulin fibrosis (MF-0) Bone marrow, flow cytometry: - No clonal B-cell or increased blast population detected Note: The specimen was sent to [facility] for consultation. The above diagnoses are from the consultation reports. Please see scanned reports [id number] and [id number] for details. 09/28/2023 8:53 AM [facility] Clinical Information Thrombocytopenia 09/28/2023 8:53 AM [facility] Gross Description A. right iliac The specimen presents in two formalin containers for gross and microscopic examination labeled with the patient's name, Iván Dumont. Part A is designated bone marrow core biopsy. The specimen consists of two pieces of pink-wolfe, bony-hard tissue fragments ranging from 0.5 cm up to 1 cm in greatest dimension. Specimen is submitted in cassette A1 after proper fixation and decalcification. B. Bone Marrow Part B is designated bone marrow clot. The specimen consists of a 3 x 1.5 x 1.5 cm blood clot. Host sample will be submitted in cassette B1. KS/sb Total time of fixation is 61 hours, 46 minutes. 09/28/2023 8:53 AM [facility] Microscopic Description Microscopic examination was performed which supports the final diagnosis. All control tissues stained appropriately. 09/28/2023 8:53 AM [facility] Case Report Bone Marrow Pathology Report ?Case: [id number] ? Authorizing Provider: ??Michael Ahmadi MD ??Collected: ? 09/22/2023 08:02 AM ? [facility] ? Received: ?09/22/2023 09:08 AM ? [facility] CT ? Pathologist: ? Frank Dockery MD PhD ? Specimens: ?? A) - Bone Marrow, right iliac ? B) - Bone Marrow ? 09/28/2023 8:53 AM AUTOGLAZIER [facility] Bone Marrow BONE MARROW SPECIMEN / Unknown 09/22/2023 8:02 AM AUTOGLAZIER 09/22/2023 9:08 AM AUTOGLAZIER Bone marrow specimen (specimen) BONE MARROW SPECIMEN / Unknown 09/22/2023 8:02 AM AUTOGLAZIER 09/22/2023 9:08 AM AUTOGLAZIER Michael Ahmadi MD PATHOLOGY/CYTOLOGY ORDER ABDOULAYE Final Result [facility] [address] [place] [address] documented in this encounter Visit Diagnoses Diagnosis Thrombocytopenia (HCC) Thrombocytopenia, unspecified documented in this encounter Administered Medications Inactive Administered Medications - up to 3 most recent administrations Medication Order MAR Action Action Date Dose Rate Site fentaNYL (PF) (SUBLIMAZE) injection 100 mcg 100 mcg, Intravenous, ONCE, 1 dose, On Mon09/22/23 at 0730 Given 09/22/2023 7:50 AM AUTOGLAZIER 100 mcg lidocaine 1 % injection 20 mL 20 mL, Other, ONCE, 1 dose, On Mon09/22/23 at 0730 Given 09/22/2023 7:50 AM AUTOGLAZIER 20 mL midazolam (VERSED) injection 2 mg 2 mg, Intravenous, ONCE, 1 dose, On Mon09/22/23 at 0730 Given 09/22/2023 7:50 AM AUTOGLAZIER 2 mg documented in this encounter Additional Health Concerns Assessment Noted Time PHQ-9 Depression Total Score: 0 08/14/19 3:02 PM AUTOGLAZIER documented as of this encounter Care Teams Director Of Graduate Medical Education Relationship Specialty Start Date End Date Irving Jeffries MD [address] [place] [address] PCP - General Internal Medicine 07/16/21 07/04/24 Ton Ling APRN, MOTION PICTURE PROJECTIONIST APPRENTICE [address] [place] [address] Nurse Practitioner Advanced Practice Nurse 04/24/23 Ame Scanlon APRN, MOTION PICTURE PROJECTIONIST APPRENTICE [address] [facility] [address] [place] [address] Nurse Practitioner Cardiology 08/23/23 Michael Ahmadi MD [address] [place] [address] Consulting Physician Medical Oncology 07/26/23 documented as of this encounter
--- OUTSIDE RECORDS SUMMARY | 2024-07-28 14:07 | XMS_ITS | Encounter Summary ---
Author Organization [employer] Care Team Providers Care School Photograph Editor Name Role Phone Irving Jeffries MD Primary Care Provider [phone] Ton Ling APRN, SEMICONDUCTOR PACKAGES PLATEMAKER Unavailable [phone] Ame Scanlon APRN, SEMICONDUCTOR PACKAGES PLATEMAKER Unavailable + [phone] Michael Ahmadi MD Unavailable [phone] Encounter Details Date Type Department Care Team (Latest Contact Info) Description 09/25/2023 Travel Social History Tobacco Use Types Packs/Day Years Used Date Smoking Tobacco: Former Cigarettes 2 20 Passive Smoke Exposure: Past Smokeless Tobacco: Never Alcohol Use Standard Drinks/Week Comments Not Currently 0 (1 standard drink = 0.6 oz pur e alcohol) [facility] Utilities Answer Date Recorded In the past 12 months has [employer], gas, oil, or water [employer] threatened to shut off services in your home? Patient declined 09/03/2023 Social Connection and Isolation Panel [NHANES] A nswer Date Recorded In a typical week, how many times do you talk on the phone with family, friends, or neighbors? Patient declined 09/03/2023 How often do you get togethe r with friends or relatives? Patient declined 09/03/2023 How often do you attend evangelical or taoism serv ices? Patient declined 09/03/2023 Do you [...] Total Score - Questions 1-9 0 07/31 [facility] - Occupational Stress Questionnaire Answer [...] place to sleep or slept in a mcfp (including now)? 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 documented as of this encounter Care Teams School Photograph Editor Relationship Specialty Start Date End Date Irving Jeffries MD [address] [place] [address] PCP - General Internal Medicine 07/16/21 07/04/24 Ton Ling APRN, SEMICONDUCTOR PACKAGES PLATEMAKER [address] [place] [address] Nurse Practitioner Advanced Practice Nurse 04/24/23 Ame Scanlon APRN, SEMICONDUCTOR PACKAGES PLATEMAKER [address] [facility], [address] [place] [address] Nurse Practitioner Cardiology 08/23/23 Michael Ahmadi MD [address] [place] [address] Consulting Physician Medical Oncology 07/26/23 documented as of this encounter
--- OUTSIDE RECORDS SUMMARY | 2024-07-28 14:07 | XMS_ITS | Encounter Summary ---
Author Organization [facility] Address [address] [facility] [place] [address] Phone Care Team Providers Care Logistics Associate Name Role Phone Irving Jeffries MD Primary Care Provider [phone] Ton Ling DIRECTOR OF HOTEL, LIQUEFACTION AND REGASIFICATION HELPER Unavailable Ame Scanlon DIRECTOR OF HOTEL, LIQUEFACTION AND REGASIFICATION HELPER Unavailable + [phone] Michael Ahmadi MD Unavailable Reason for Visit * Auth/Cert (Routine) Specialty Diagnoses / Procedures Referred By Geeta t Referred To Contact Referral ID Status Reason Start Date Expiration Date Visits Re quested Visits Authorized [id number] 1 1 Encounter Details Date Type Department Care Team (Late st Contact Info) Description 09/23/2023 Home Care Visit [facility] [address] [place] [address] Amada Cochran, RN [place] TELEPHONE ENCOUNTER Social History Tobacco Use Types Packs/Day Years Used Date Smoking Tobacco: Former Cigarettes 2 20 Passive Smoke Exposure: Past Smokeless Tobacco: Never Alcohol Use Standard Drinks/Week Comments Not Currently 0 (1 standard drink = 0.6 oz pur e alcohol) [facility] Utilities Answer Date Recorded In the past [...] How often do you attend yazidi or worship serv ices? Patient declined 09/03/2023 Do you [...] Total Score: 0 08/14/19 24 3:02 PM ARCHITECT documented as of this encounter Care Teams Logistics Associate Relationship Specialty Start Date End Date Irving Jeffries MD [address] [place] [address] PCP - General Internal Medicine 07/16/21 07/04/24 Ton Ling APRN, LIQUEFACTION AND REGASIFICATION HELPER [address] [place] [address] Nurse Practitioner Advanced Practice Nurse 04/24/23 Ame Scanlon APRN, LIQUEFACTION AND REGASIFICATION HELPER #2 [facility] [employer] [facility] [address] [place] [address] Nurse Practitioner Cardiology 08/23/23 Michael Ahmadi MD [address] [place] [address] Consulting Physician Medical Oncology 07/26/23 documented as of this encounter
--- OUTSIDE RECORDS SUMMARY | 2024-07-28 14:07 | XMS_ITS | Encounter Summary ---
Author Organization [facility] Address [address] [place] [address] Phone Care Team Providers Care Egg Crater Name Role Phone Irving Jeffries MD Primary Care Provider [phone] Ton Ling PRIVATE INVESTIGATOR SURVEILLANCE, CONSULTING PROPERTY MANAGER Unavailable Ame Scanlon PRIVATE INVESTIGATOR SURVEILLANCE, CONSULTING PROPERTY MANAGER Unavailable Michael Ahmadi MD Unavailable [phone] Reason for Visit * Reason Comments Voiding Trial Encounter Details Date Type Department Care Team (Late st Contact Info) Description 09/12/2023 9:30 AM DITCH REPAIRER Office Visit [facility] [address] [place] [id number] Ton Ling, PRIVATE INVESTIGATOR SURVEILLANCE, CONSULTING PROPERTY MANAGER [address] [place] [address] Urinary retention (Primary Dx) Discharge Disposition: Discharged to home or Selfcare Social History Tobacco Use Types Packs/Day Years Used Date Smoking Tobacco: Former Cigarettes 2 20 Passive Smoke Exposure: Past Smokeless Tobacco: Never Tobacco Cessation:Counseling Given: Not Answered Alcohol Use Standard Drinks/Week Comments Not Currently 0 (1 standard drink = 0.6 oz pur e alcohol) [facility] Utilities Answer Date Recorded In the past 12 months has [employer], [facility], or [employer] threatened to shut off services in your home? Patient declined 09/03/2023 Social Connection and Isolation Panel [NHANES] A nswer Date Recorded In a typical week, how many times do you talk on the phone with family, friends, or neighbors? Patient declined 09/03/2023 How often do you get togethe r with friends or relatives? Patient declined 09/03/2023 How often do you attend orthodoxy or restoration serv ices? Patient declined 09/03/2023 Do you belong to any clubs o r organizations such as orthodoxy groups, unions, fraternal or athletic groups, or [...] Questions 1-9 0 07/31 [employer] [facility] - Occupational Stress Questionnaire Answer Date [...] Sign Reading Time Taken Comments Blood Pressure 148/88 09/12/2023 9:15 AM DITCH REPAIRER Pulse 90 09/12/2023 9:15 AM DITCH REPAIRER Temperature - - Respiratory Rate 18 09/12/2023 9:15 AM DITCH REPAIRER Oxygen Saturation 98% 09/12/2023 9:15 AM DITCH REPAIRER Inhaled Oxygen Concentration - - Weight 89.8 kg (198 lb) 09/12/2023 9:15 AM DITCH REPAIRER Height 182.9 cm (6') 09/12/2023 9:15 AM DITCH REPAIRER Body Mass Index 26.85 09/12/2023 9:15 AM DITCH REPAIRER documented in this encounter Progress Notes * Ton Ling, PRIVATE INVESTIGATOR SURVEILLANCE, CONSULTING PROPERTY MANAGER - 09/12/2023 9:30 AM CST UROLOGY [facility] [address] [facility], [address] [place] [address] PHONE: FAX: Assessment & Plan Urinary retention- voiding trial successful. Patient educated on the signs and symptoms of UTI/urinary retention and when/where to seek help. Patient returned to office by 3:00 p.m. today if he has not urinating. Otherwise, patient to follow up in 1 week for UA/PVR check. Continue tamsulosin and finasteride Subjective: 04/24/2023 HPI: HPI: Iván Dumont presents [...] office for follow-up. Patient was admitted to [facility] on 09/02/2023 for altered mental status and [...] to void 400 cc. Voiding trial successful. The following portions of the patient's chart [...] Pseudomonas aeruginosa Final Susceptibility Pseudomonas aeruginosa - [place] [facility] IIB Cefepime Susceptible mcg/ml Gentamicin Resistant Levofloxacin Susceptible mcg/ml Meropenem Susceptible mcg/ml Piperacillin/Tazobactam Susceptible mcg/ml Tobramycin Susceptible mcg/ml No results found for: TESTOSTTTL No results found for this or any previous visit from the past 365 days. There are no diagnoses linked to this encounter. By: Ton Ling, PRIVATE INVESTIGATOR SURVEILLANCE, CONSULTING PROPERTY MANAGER, 09/12/2023, 8:10 AM DITCH REPAIRER Primary Care Physician: Irving Jeffries MD H REPAIRER documented in this encounter Plan of Treatment Not on file documented as of this encounter Visit Diagnoses Diagnosis Urinary retention- Primary Retention of urine, unspecified documented in this encounter Additional Health Concerns Assessment Noted Time PHQ-9 Depression Total Score: 0 08/14/19 3:02 PM DITCH REPAIRER documented as of this encounter Care Teams Egg Crater Relationship Specialty Start Date End Date Irving Jeffries MD [address] [place] [address] PCP - General Internal Medicine 07/16/21 07/04/24 Ton Ling APRN, CONSULTING PROPERTY MANAGER [address] [place] [address] Nurse Practitioner Advanced Practice Nurse 04/24/23 Ame Scanlon APRN, CONSULTING PROPERTY MANAGER #2 [facility] [address] [place] [address] Nurse Practitioner Cardiology 08/23/23 Michael Ahmadi MD [address] [place] [address] Consulting Physician Medical Oncology 07/26/23 documented as of this encounter
--- OUTSIDE RECORDS SUMMARY | 2024-07-28 14:07 | XMS_ITS | Encounter Summary ---
Author Organization [facility] Address [address] [place] [place] [address] Phone Care Team Providers Care Ton Container Shipper Name Role Phone Irving Jeffries MD Primary Care Provider [phone] Ton Ling DIRECTOR OF MUSIC THERAPY, CONCRETE CONVEYOR OPERATOR Unavailable Ame Scanlon DIRECTOR OF MUSIC THERAPY, CONCRETE CONVEYOR OPERATOR Unavailable + [phone] Michael Ahmadi MD Unavailable Reason for Visit * Auth/Cert (Routine) Specialty Diagnoses / Procedures Referred By Geeta t Referred To Contact Referral ID Status Reason Start Date Expiration Date Visits Re quested Visits Authorized [id number] 1 1 Encounter Details Date Type Department Care Team (Late st Contact Info) Description 08/30/2023 1:00 PM OVEN HEATER HELPER [facility] [address] [place] [address] Mere Puckett, TRAILER RENTAL CLERK PT - HOME VISIT Social History Tobacco Use Types Packs/Day Years Used Date Smoking Tobacco: Former Cigarettes 2 20 Passive Smoke Exposure: Past Smokeless Tobacco: Never Alcohol Use Standard Drinks/Week Comments Not Currently 0 (1 standard drink = 0.6 oz pur e alcohol) [facility] Utilities Answer Date Recorded In [...] How often do you attend chur or tenriism services? Patient unable to answer 08/14/2023 Do [...] Questions 1-9 0 07/31 [facility] - Occupational Stress Questionnaire Answer [...] slept in a mcfp (including now)? Patient unable to answer 08/14/2023 Sexually Active Control Partners Comments Never Sex and Gender Information Value Date Recorded Sex Assigned at Not on file Legal Sex Male 11:18 PM CDT Gender Identity Not on file Sexual Orientation Not on file documented as of this encounter Last Filed Vital Signs Vital Sign Reading Time Taken Comments Blood Pressure 110/52 08/30/2023 2:18 PM OVEN HEATER HELPER Pulse 97 08/30/2023 2:18 PM OVEN HEATER HELPER Temperature 36.3 ??C (97.4 ??F) 08/30/2023 2:18 PM CS T Respiratory Rate 18 08/30/2023 2:18 PM OVEN HEATER HELPER Oxygen Saturation 98% 08/30/2023 2:18 PM OVEN HEATER HELPER Inhaled Oxygen Concentration - - Weight - - Height - - Body Mass Index - - documented in this encounter Plan of Treatment Not on file documented as of this encounter Visit Diagnoses Not on filedocumented in this encounter Additional Health Concerns 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 07/28/2023 09/04/2023 8:45 AM OVEN HEATER HELPER Assessment Noted Time PHQ-9 Depression Total Score: 0 08/14/19 24 3:02 PM OVEN HEATER HELPER documented as of this encounter Home Health Visit - Care Plan Visit Details Visit Type -PT - HOME VISIT Discipline -Physical Therapy Problems Problem Description Start Date Status Goals Interve ntions THERAPY DISEASE MANAGEMENT (O) Disciplines: Physical Therapy 08/10/2023 Active - 1 problem intervention scheduled/document ed in this visit PT COMPREHENSIVE Disciplines: Physical Therapy 08/10/2023 Active 4 goals linked to scheduled/documente d interventions 3 goal interventions scheduled/document ed in this visit PT COMPREHENSIVE Disciplines: Physical Therapy 08/28/2023 Active 1 goal linked to scheduled/documente d intervention 1 goal intervention scheduled/document ed in this visit Goals Goal Associated Problem Outcome Goal Met? Visit Notes PT Balance Description: Secret Service Agent Goal: Patient will show improved dynamic standing balance as demonstrated by improved Tinetti score from 05/27 to in order to lower risk for falls. To be met by 09/16/23. PT COMPREHENSIVE Therapy: Goal partially met No demonstrated this session PT Caregiver Assist/Safety Description: Short Term Goal: Caregiver will be able to safely demonstrate patient assistance with home exercise program, transfers, ambulation and stair negotiation in order to prevent falls. To be met by 09/16/23. PT COMPREHENSIVE Therapy: Goal partially met No Staff reports Iván is doing good staying out of bed more and walking on his own to and from meals and TV room PT Ambulation Description: Short Term Goal: Patient will ambulate with supervision 100 feet with use of 2 wheel walker, over even surfaces with the following improved gait characteristics no loss of balance in order to safely leave home for appointments. To be met by 08/31/23. Secret Service Agent Goal: Patient will ambulate independently 150 feet with use of straight cane, over even surfaces and uneven surfaces with the following improved gait characteristics no loss of balance in order to safely leave home for appointments. To be met by 09/16/23. PT COMPREHENSIVE Therapy: Goal partially met No PT HEP Description: Secret Service Agent Goal: Patient and/or caregiver will with supervision with final HEP of strengthening, balance training and conditioning in order to continue preventing functional decline after discharge from home care. To be met by 09/16/23. PT COMPREHENSIVE No PT Stairs and Home Exit Description: Fpc Goal: Patient will require supervision on 18 steps with use of 1 rail while maintaining ordered precautions to allow for ability to to access other levels of their home . To be met by 09/16/23. PT COMPREHENSIVE Therapy: Goal partially met No Interventions Intervention Associated Problem/Goal Status Variance Visit Notes Therapy Depression (O) Description: Assess and monitor for signs and symptoms of depression. Problem:THERAPY DISEASE MANAGEMENT (O) Completed Patient shows signs of depression no Symptoms reported to physician no aware of situation PT Balance Description: Provide balance training for safety and reduced fall risk. Problem:PT COMPREHENSIVE Goal:PT Balance Completed Balance training provided this date Static standing feet together eyes closed and Dynamic standing turning around in a ugashik with no balance losses observed Level of support required for safety with supervision. Special Test performed this date Tinetti score 24/28. Skill provided Safety instructions go slow use cane/walker or hold rails in home as needed for balance safety. Instruction provided to Patient. Response return demonstration. Progress toward goal: met with no falls reported and patient walking much better compared to 2 weeks ago PT Ambulation Description: Provide gait training for increased safety and efficiency. Progress per patient tolerance and safety. Problem:PT COMPREHENSIVE Goal:PT Ambulation Completed Patient ambulated with supervision 200 feet with use of no device. WBAT bilateral lower extremity over even surfaces with the following gait characteristics fast pace, step thru, stooped posture, right knee knocked inward, no balance losses and heels almost touching. Skills provided: Safety instruction go slow, keep feet apart . Tolerance to activity decreased assistance required. Instruction provided to Patient. Response return demonstration. Progress toward goal: met for functional distances in and out of mcfp home PT HEP Progression Description: Instruct on home exercise program. Progress as tolerated. Problem:PT COMPREHENSIVE Goal:PT HEP Completed Home Exercise Program performed supine B L/E's AROM x 20 reps consisting of ankle DF/PF, bridging, heel slides, straight leg raises, short arc quad and hip abduction with fast partial excursions unless patient was cued verbally and physically to slow down and guided through full ROM. Instruction provided to Patient. Patient reported he will try to do his exercises Response return demonstration. PT Stairs and Home Exit Description: Instruct in proper safety and technique for stair training or home exit as directed in the goal. Problem:PT COMPREHENSIVE Goal:PT Stairs and Home Exit Completed Provided skilled training on 19 steps with use of 2 rails with supervision. Skills provided: Safety instruction slow down/make sure feet are fully on steps Tolerance to activity fair. Instruction provided to Patient. Response return demonstration. Progress toward goal: partially met documented in this encounter Care Teams Ton Container Shipper Relationship Specialty Start Date End Date Irving Jeffries MD [address] [place] [address] PCP - General Internal Medicine 07/16/21 07/04/24 Ton Ling, DIRECTOR OF MUSIC THERAPY, CONCRETE CONVEYOR OPERATOR [address] [place] [address] Nurse Practitioner Advanced Practice Nurse 04/24/23 Ame Scanlon DIRECTOR OF MUSIC THERAPY, CONCRETE CONVEYOR OPERATOR [address] [facility] [address] [place] [address] Nurse Practitioner Cardiology 08/23/23 Michael Ahmadi MD [address] [place] [address] Consulting Physician Medical Oncology 07/26/23 documented as of this encounter
--- OUTSIDE RECORDS SUMMARY | 2024-07-28 14:07 | XMS_ITS | Encounter Summary ---
Author Organization [facility] Address [address] [facility] [place] [address] Phone Care Team Providers Care Digital Content Specialist Name Role Phone Irving Jeffries MD Primary Care Provider [phone] Ton Ling HEALTH DATA ANALYST, BUSINESS AND MARKETING TEACHER Unavailable Ame Scanlon HEALTH DATA ANALYST, BUSINESS AND MARKETING TEACHER Unavailable + [phone] Michael Ahmadi MD Unavailable Reason for Visit * Auth/Cert (Routine) Specialty Diagnoses / Procedures Referred By Geeta t Referred To Contact Referral ID Status Reason Start Date Expiration Date Visits Re quested Visits Authorized [id number] 1 1 Encounter Details Date Type Department Care Team (Late st Contact Info) Description 09/23/2023 Home Care Visit [facility] [address] [place] [address] Amada Cochran, RN [place] TELEPHONE ENCOUNTER Social History Tobacco Use Types Packs/Day Years Used Date Smoking Tobacco: Former Cigarettes 2 20 Passive Smoke Exposure: Past Smokeless Tobacco: Never Alcohol Use Standard Drinks/Week Comments Not Currently 0 (1 standard drink = 0.6 oz pur e alcohol) [facility] Utilities Answer Date Recorded In [...] declined 09/03/2023 How often do you attend denominational or muslim serv ices? Patient declined 09/03/2023 Do you belong to any clubs o r organizations such as denominational groups, unions, fraternal or athletic groups, or [...] Total Score - Questions 1-9 0 07/31 [facility] - [...] Total Score: 0 08/14/19 24 3:02 PM ROLL BUILDER documented as of this encounter Care Teams Digital Content Specialist Relationship Specialty Start Date End Date Irving Jeffries MD [address] [place] [address] PCP - General Internal Medicine 07/16/21 07/04/24 Ton Ling APRN, BUSINESS AND MARKETING TEACHER [address] [place] [address] Nurse Practitioner Advanced Practice Nurse 04/24/23 Ame Scanlon APRN, BUSINESS AND MARKETING TEACHER #2 [facility] [employer] [facility] [address] [place] [address] Nurse Practitioner Cardiology 08/23/23 Michael Ahmadi MD [address] [place] [address] Consulting Physician Medical Oncology 07/26/23 documented as of this encounter
--- OUTSIDE RECORDS SUMMARY | 2024-07-28 14:07 | XMS_ITS | Encounter Summary ---
Author Organization [facility] Address [address] [facility] [address] Phone Care Team Providers Care Biomedical Equipment Technician Name Role Phone Irving Jeffries MD Primary Care Provider [phone] Ton Ling LOAD OUT PERSON, CHIEF TECHNICIAN Unavailable Ame Scanlon LOAD OUT PERSON, CHIEF TECHNICIAN Unavailable + [phone] Michael Ahmadi MD Unavailable [phone] Reason for Visit * Auth/Cert (Routine) Specialty Diagnoses / Procedures Referred By Geeta t Referred To Contact Referral ID Status Reason Start Date Expiration Date Visits Re quested Visits Authorized [id number] 1 1 Encounter Details Date Type Department Care Team (Late st Contact Info) Description 09/14/2023 10:00 AM CALLISTHENICS INSTRUCTOR [facility] [address] [place] [address] Mere Puckett, TELETYPE CLERK PT - HOME VISIT Social History Tobacco Use Types Packs/Day Years Used Date Smoking Tobacco: Former Cigarettes 2 20 Passive Smoke Exposure: Past Smokeless Tobacco: Never Alcohol Use Standard Drinks/Week Comments Not Currently 0 (1 standard drink = 0.6 oz pur e alcohol) [facility] Utilities Answer Date Recorded In the [...] How often do you attend faith or gnosticism serv ices? Patient declined 09/03/2023 Do you [...] Total Score - Questions 1-9 0 07/31 [facility] - Occupational Stress Questionnaire Answer [...] Sign Reading Time Taken Comments Blood Pressure 106/68 09/14/2023 10:16 AM CALLISTHENICS INSTRUCTOR Pulse 78 09/14/2023 10:16 AM CALLISTHENICS INSTRUCTOR Temperature 36.6 ??C (97.8 ??F) 09/14/2023 10:[address] Respiratory Rate 18 09/14/2023 10:16 AM CALLISTHENICS INSTRUCTOR Oxygen Saturation 98% 09/14/2023 10:16 AM CALLISTHENICS INSTRUCTOR Inhaled Oxygen Concentration - - Weight - - Height - - Body Mass Index - - documented in this encounter Plan of Treatment Not on file documented as of this encounter Visit Diagnoses Not on filedocumented in this encounter Additional Health Concerns Assessment Noted Time PHQ-9 Depression Total Score: 0 08/14/19 24 3:02 PM CALLISTHENICS INSTRUCTOR documented as of this encounter Home Health [...] PT COMPREHENSIVE Therapy: Goal partially met No Caregiver report understanding-comp liance questionable PT Ambulation Description: Half-Way Goal: Patient will ambulate independently 150 feet with use of AD prn over even surfaces or uneven surfaces with the following improved gait characteristics no pathway deviations in order to safely leave home for appointments. To be met by 09/22/23. PT COMPREHENSIVE Therapy: Goal partially met No PT HEP Description: Manager Fixed Income Goal: Patient and/or caregiver will require min assist with final HEP of strengthening, balance training and conditioning in order to continue preventing functional decline after discharge from home care. To be met by 09/22/23. PT COMPREHENSIVE Therapy: Goal partially met No Poor compliance-handout s given to patient PT Stairs and Home Exit Description: Half-Way Goal: Patient will be independent on entry steps with use of HR/AD prn while maintaining ordered precautions to allow for ability to to enter/exit home for appts . To be met by 09/22/23. PT COMPREHENSIVE Therapy: Goal partially met No Mostly met with patient still staying downstairs but ready to go upstairs to his previous room Interventions Intervention Associated Problem/Goal Status Variance Visit [...] Patient. Agrees with plan for discharge on 09/20/2023 date from [facility] PT Dr. Laurel Jeffries notified via CC note and agrees with discharge plan. PT Caregiver Assist/Safety Description: Instruct caregiver how to safely assist patient. Problem:PT COMPREHENSIVE Goal:PT Caregiver Assist/Safety Completed Caregiver training provided to Lenora regarding: stair negotiation Caregiver response to training: verbalize understanding. Progress toward goal: met as patient can move back to his upstairs bedroom with catheter out, stairs performed safely at patients baseline and bladder control reported from caregivers PT Ambulation Description: Provide gait training for increased safety and efficiency. Progress per patient tolerance and safety. Problem:PT COMPREHENSIVE Goal:PT Ambulation Completed Patient ambulated independently 100 feet with use of no device. WBAT bilaterally L/E's over even surfaces with the following gait characteristics fast pace, decreased stance phase time over right L/E with right knee valgus observed. No balance losses observed and patient holds onto rail in hallway and on steps Skills provided: Safety instruction slow down and use cane or walker as needed for pain/unsteadiness control . Tolerance to activity decreased assistance required. Instruction provided to Patient. Response return demonstration. Progress toward goal: met for functional ADL's PT HEP Progression Description: Instruct on home exercise program. Progress as tolerated. Problem:PT COMPREHENSIVE Goal:PT HEP Completed Home Exercise Program issued/performed supine B L/E's AROM x 10 reps consisting of ankle DF/PF, bridging, short arc quads with bilateral hamstring tightness noted greater on right side, hip abduction, hip flexion/extension and glut/quad sets with fast pacing and ROM excursion not full unless physically guided to do so Instruction provided to Patient. Move through full motion, slow with control and relax muscles between reps Response return demonstration. PT Stairs and Home Exit Description: Instruct in proper safety and technique for stair training or home exit as directed in the goal. Problem:PT COMPREHENSIVE Goal:PT Stairs and Home Exit Completed Provided skilled training on 19 steps x 3 with use of 2 rails with independence. Skills provided: Safety instruction go slow and make sure feet are completly on step to avoid it sliding off Tolerance to activity fair. Patient goes fast (impulsive with all movement ie walking and exercises) and SOB is noted but quickly recovers after short rest break Instruction provided to Patient. Response return demonstration. Progress toward goal: met documented in this encounter Care Teams Biomedical Equipment Technician Relationship Specialty Start Date End Date Irving Jeffries MD [address] [place] [address] PCP - General Internal Medicine 07/16/21 07/04/24 Ton Ling APRN, CHIEF TECHNICIAN [address] [place] [address] Nurse Practitioner Advanced Practice Nurse 04/24/23 Ame Scanlon APRN, CHIEF TECHNICIAN #2 [facility] [address] [place] [address] Nurse Practitioner Cardiology 08/23/23 Michael Ahmadi MD [address] [place] [address] Consulting Physician Medical Oncology 07/26/23 documented as of this encounter
--- OUTSIDE RECORDS SUMMARY | 2024-07-28 14:07 | XMS_ITS | Encounter Summary ---
Author Organization [facility] Address [address] [place] [address] Phone Care Team Providers Care Research Technician Name Role Phone Irving Jeffries MD Primary Care Provider Ton Ling GRADER OPERATOR, BUSINESS LOAN PROCESSOR Unavailable [phone] Ame Scanlon GRADER OPERATOR, BUSINESS LOAN PROCESSOR Unavailable + [phone] Michael Ahmadi MD Unavailable Reason for Visit * Auth/Cert (Routine) Specialty Diagnoses / Procedures Referred By Geeta t Referred To Contact Referral ID Status Reason Start Date Expiration Date Visits Re quested Visits Authorized [id number] 1 1 Encounter Details Date Type Department Care Team (Late st Contact Info) Description 09/04/2023 [facility] [address] [place] [address] Shanell Valiente RN [place] SN - OASIS TRANSFER W/OUT DC Social History Tobacco Use Types Packs/Day Years Used Date Smoking Tobacco: Former Cigarettes 2 20 Passive Smoke Exposure: Past Smokeless Tobacco: Never Alcohol Use Standard Drinks/Week Comments Not Currently 0 (1 standard drink = 0.6 oz pur e alcohol) [facility] Utilities Answer Date Recorded In [...] declined 09/03/2023 How often do you attend scientologist or voodoo serv ices? 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 07/28/2023 09/04/2023 8:45 AM CERTIFIED SURGICAL TECHNICIAN COVID - 19 09/02/2023 09/02/2023 09/04/2023 8:45 AM CERTIFIED SURGICAL TECHNICIAN Assessment Noted Time PHQ-9 Depression Total Score: 0 08/14/19 24 3:02 PM CERTIFIED SURGICAL TECHNICIAN documented as of this encounter Care Teams Research Technician Relationship Specialty Start Date End Date Irving Jeffries MD [address] [place] [address] PCP - General Internal Medicine 07/16/21 07/04/24 Ton Ling APRN, BUSINESS LOAN PROCESSOR [address] [place] [address] Nurse Practitioner Advanced Practice Nurse 04/24/23 Ame Scanlon APRN, BUSINESS LOAN PROCESSOR #2 [facility], [address] [place], [place] [id number] Nurse Practitioner Cardiology 08/23/23 Michael Ahmadi MD [address] [place] [address] Consulting Physician Medical Oncology 07/26/23 documented as of this encounter
--- OUTSIDE RECORDS SUMMARY | 2024-07-28 14:07 | XMS_ITS | Encounter Summary ---
Author Organization [facility] Address [address] [place] [address] Phone Care Team Providers Care Community Organizer Name Role Phone Irving Jeffries MD Primary Care Provider Ton Ling COOK MANAGER, PET CARE ATTENDANT Unavailable [phone] Ame Scanlon COOK MANAGER, PET CARE ATTENDANT Unavailable + [phone] Michael Ahmadi MD Unavailable Reason for Visit * Auth/Cert (Routine) Specialty Diagnoses / Procedures Referred By Geeta t Referred To Contact Referral ID Status Reason Start Date Expiration Date Visits Re quested Visits Authorized [id number] 1 1 Encounter Details Date Type Department Care Team (Late st Contact Info) Description 08/28/2023 11:30 AM SUSTAINABLE PRODUCTS MARKETING MANAGER [facility] [address] [place] [address] Jhoana Day, PT [place] PT - REASSESSMENT Social History Tobacco Use Types Packs/Day Years Used Date Smoking Tobacco: Former Cigarettes 2 20 Passive Smoke Exposure: Past Smokeless Tobacco: Never Alcohol Use Standard Drinks/Week Comments Not Currently 0 (1 standard drink = 0.6 oz pur e alcohol) [facility] Utilities Answer Date Recorded In the [...] How often do you attend chur or moravian services? Patient unable to answer 08/14/2023 Do you belong to any clubs o r organizations such as hinduism groups, unions, fraternal or athletic groups, or [...] Total Score - Questions 1-9 0 07/31 [facility] - Occupational Stress Questionnaire Answer Date [...] Sign Reading Time Taken Comments Blood Pressure 112/60 08/28/2023 11:33 AM SUSTAINABLE PRODUCTS MARKETING MANAGER Pulse 91 08/28/2023 11:33 AM SUSTAINABLE PRODUCTS MARKETING MANAGER Temperature 36.8 ??C (98.2 ??F) 08/28/2023 11:[address] Respiratory Rate 18 08/28/2023 11:33 AM SUSTAINABLE PRODUCTS MARKETING MANAGER Oxygen Saturation 97% 08/28/2023 11:33 AM SUSTAINABLE PRODUCTS MARKETING MANAGER Inhaled Oxygen Concentration - - Weight - - Height - - Body Mass Index - - documented in this encounter Plan of Treatment Not on file documented as of this encounter Visit Diagnoses Not on filedocumented in this encounter Additional Health Concerns 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 07/28/2023 09/04/2023 8:45 AM SUSTAINABLE PRODUCTS MARKETING MANAGER Assessment Noted Time PHQ-9 Depression Total Score: 0 08/14/19 24 3:02 PM SUSTAINABLE PRODUCTS MARKETING MANAGER documented as of this encounter Home Health Visit - Care Plan Visit Details Visit Type -PT - REASSESSMEN T Discipline -Physical Therapy Problems Problem Description Start Date Status Goals Interve ntions THERAPY DISEASE MANAGEMENT (O) Disciplines: Physical Therapy 08/10/2023 Active - 1 problem intervention scheduled/documen hector in this visit PHYSICAL THERAPY EVALUATION (O) Disciplines: Physical Therapy PT Evaluation 08/10/2023 Active 1 goal linked to scheduled/document ed intervention PT COMPREHENSIVE Disciplines: Physical Therapy 08/10/2023 Active 5 goals linked to scheduled/document ed interventions FALL PREVENTION (O) Disciplines: SN, PT, OT, ROLLING MACHINE OPERATOR, [facility], FISHER QUAHOG, RT 08/09/2023 Active 1 goal linked to scheduled/document ed intervention PT COMPREHENSIVE Disciplines: Physical Therapy 08/28/2023 Active 1 goal linked to scheduled/document ed intervention Goals Goal Associated Problem Outcome Goal Met? Visit Notes Physical Therapy Evaluation Description: After assessing the patient and discussing the patient's goals the following were identified: Patient centered correction goal: get back to walking without walker and playing guitar. Target Date: by 09/16/23 (date) PHYSICAL THERAPY EVALUATION (O) Ongoing (see interventions/no artem) No walking without walker supervision PT Balance Description: Retirement Goal: Patient will show improved dynamic standing balance as demonstrated by improved Tinetti score from 05/27 to in order to lower risk for falls. To be met by 09/16/23. PT COMPREHENSIVE Therapy: Goal partially met No on this date PT Caregiver Assist/Safety Description: Short Term Goal: Caregiver will be able to safely demonstrate patient assistance with home exercise program, transfers, ambulation and stair negotiation in order to prevent falls. To be met by 09/16/23. PT COMPREHENSIVE Ongoing (see interventions/no artem) No PT Ambulation Description: Short Term Goal: Patient will ambulate with supervision 100 feet with use of 2 wheel walker, over even surfaces with the following improved gait characteristics no loss of balance in order to safely leave home for appointments. To be met by 08/31/23. Assembler Metal Building Goal: Patient will ambulate independently 150 feet with use of straight cane, over even surfaces and uneven surfaces with the following improved gait characteristics no loss of balance in order to safely leave home for appointments. To be met by 09/16/23. PT COMPREHENSIVE Ongoing (see interventions/no artem) No supervision 150 feet PT Transfers Description: Assembler Metal Building Goal: Patient will perform sit to stand/pivot transfers independently with use of device as needed ; in order to be safe in home. To be met by 09/16/23. PT COMPREHENSIVE Outcome Achieved Yes PT HEP Description: Assembler Metal Building Goal: Patient and/or caregiver will with supervision with final HEP of strengthening, balance training and conditioning in order to continue preventing functional decline after discharge from home care. To be met by 09/16/23. PT COMPREHENSIVE Ongoing (see interventions/no artem) No progressing Fall Prevention Description: Shared goal applicable to all disciplines with a visit frequency order. Patient/ Caregiver will verbalize understanding of identified fall risk based on [facility]-10 Fall Risk assessment and methods to prevent falls. Target date: 09/09/23 FALL PREVENTION (O) Ongoing (see interventions/no artem) No no falls reported PT Stairs and Home Exit Description: Assembler Metal Building Goal: Patient will require supervision on 18 steps with use of 1 rail while maintaining ordered precautions to allow for ability to to access other levels of their home . To be met by 09/16/23. PT COMPREHENSIVE Ongoing (see interventions/no artem) No CGA Interventions Intervention Associated Problem/Goal Status Variance Visit Notes Therapy Depression (O) Description: Assess and monitor for signs and symptoms of depression. Problem:THERAPY DISEASE MANAGEMENT (O) Completed Patient shows signs of depression no Symptoms reported to physician (no, no symptoms). documented in this encounter Care Teams Community Organizer Relationship Specialty Start Date End Date Irving Jeffries MD [address] [place] [address] PCP - General Internal Medicine 07/16/21 07/04/24 Ton Ling APRN, PET CARE ATTENDANT [address] [place] [address] Nurse Practitioner Advanced Practice Nurse 04/24/23 Ame Scanlon APRN, PET CARE ATTENDANT #2 [facility] [address] [place] [address] Nurse Practitioner Cardiology 08/23/23 Michael Ahmadi MD [address] [place] [address] Consulting Physician Medical Oncology 07/26/23 documented as of this encounter
--- OUTSIDE RECORDS SUMMARY | 2024-07-28 14:07 | XMS_ITS | Encounter Summary ---
Author Organization [facility] Address [address] [employer] [facility] [place] [address] Phone Care Team Providers Care Nursing Staff Development Coordinator Name Role Phone Irving Jeffries MD Primary Care Provider Ton Ling SEO STRATEGIST, ACCOUNT ADJUSTER Unavailable Ame Scanlon SEO STRATEGIST, ACCOUNT ADJUSTER Unavailable + [phone] Michael Ahmadi MD Unavailable Reason for Visit * Auth/Cert (Routine) Specialty Diagnoses / Procedures Referred By Geeta t Referred To Contact Referral ID Status Reason Start Date Expiration Date Visits Re quested Visits Authorized [id number] 1 1 Encounter Details Date Type Department Care Team (Latest Contact Info) Description 09/12/2023 11:00 AM COMMERCIAL SHRIMPING CAPTAIN [facility] [address] [place] [address] Mere Puckett, PROJECT GEOLOGIST PT - HOME VISIT Discharge Disposition: Discharged to home or Selfcare Social History Tobacco Use Types Packs/Day Years Used Date Smoking Tobacco: Former Cigarettes 2 20 Passive Smoke Exposure: Past Smokeless Tobacco: Never Alcohol Use Standard Drinks/Week Comments Not Currently 0 (1 standard drink = 0.6 oz pur e alcohol) [facility] Utilities Answer Date Recorded In the [...] How often do you attend religion or restorationism serv ices? Patient declined 09/03/2023 Do you [...] 07/31 [facility] Occupat [facility] - Occupational Stress Questionnaire Answer [...] Reading Time Taken Comments Blood Pressure 120/60 09/12/2023 11:56 AM COMMERCIAL SHRIMPING CAPTAIN Pulse 87 09/12/2023 11:56 AM COMMERCIAL SHRIMPING CAPTAIN Temperature 36.3 ??C (97.4 ??F) 09/12/2023 11:[address] Respiratory Rate 18 09/12/2023 11:56 AM COMMERCIAL SHRIMPING CAPTAIN Oxygen Saturation 97% 09/12/2023 11:56 AM COMMERCIAL SHRIMPING CAPTAIN Inhaled Oxygen Concentration - - Weight - - Height - - Body Mass Index - - documented in this encounter Plan of Treatment Not on file documented as of this encounter Visit Diagnoses Not on filedocumented in this encounter Additional Health Concerns Assessment Noted Time PHQ-9 Depression Total Score: 0 08/14/19 24 3:02 PM COMMERCIAL SHRIMPING CAPTAIN documented as of this encounter Home Health Visit - Care Plan Visit Details Visit Type -PT - HOME VISIT Discipline -Physical Therapy Problems Problem Description Start Date Status Goals Interve ntions THERAPY DISEASE MANAGEMENT (O) Disciplines: Physical Therapy 08/10/2023 Active - 1 problem intervention scheduled/document ed in this visit PT COMPREHENSIVE Disciplines: Physical Therapy 08/10/2023 Active 3 goals linked to scheduled/documente d interventions 3 [...] To be met by 09/22/23. PT COMPREHENSIVE No PT Ambulation Description: Electric Golf Cart Repairer Goal: Patient will ambulate independently 150 feet with use of AD prn over even surfaces or uneven surfaces with the following improved gait characteristics no pathway deviations in order to safely leave home for appointments. To be met by 09/22/23. PT COMPREHENSIVE No PT HEP Description: Electric Golf Cart Repairer Goal: Patient and/or caregiver will require min assist with final HEP of strengthening, balance training and conditioning in order to continue preventing functional decline after discharge from home care. To be met by 09/22/23. PT COMPREHENSIVE No PT Stairs and Home Exit Description: Chcf Goal: Patient will be independent on entry steps with use of HR/AD prn while maintaining ordered precautions to allow for ability to to enter/exit home for appts . To be met by 09/22/23. PT COMPREHENSIVE No Interventions Intervention Associated Problem/Goal Status Variance Visit Notes Therapy Depression (O) Description: Assess and monitor for signs and symptoms of depression. Problem:THERAPY DISEASE MANAGEMENT (O) Completed Patient shows signs of depression yes Symptoms reported to physician no Dr benson PT Caregiver Assist/Safety Description: Instruct caregiver how to safely assist patient. Problem:PT COMPREHENSIVE Goal:PT Caregiver Assist/Safety Completed Caregiver training provided to Lenora regarding: home exercise program, ambulation, stair negotiation and bladder retaining after having catheter for several weeks Caregiver response to training: verbalize understanding. Progress toward goal: ongoing PT Ambulation Description: Provide gait training for increased safety and efficiency. Progress per patient tolerance and safety. Problem:PT COMPREHENSIVE Goal:PT Ambulation Completed Patient ambulated with supervision 100 feet with use of no device WBAT bilateral lower extremity over even surfaces with the following gait characteristics moderate pacing, stooped posture, holding rail if available and right knee valgus observed with slight decreased stance phase over right L/E. Skills provided: Safety instruction go slow and use cane or walker if pain or unsteadiness is observed . Tolerance to activity increased gait distance and decreased assistance required. Instruction provided to Patient and Caregiver Lenora . Response verbalize understanding and return demonstration. Progress toward goal: partially met PT HEP Progression Description: Instruct on home exercise program. Progress as tolerated. Problem:PT COMPREHENSIVE Goal:PT HEP Completed Home Exercise Program issued/performed standing B L/E's AROM x 10 consisting of ankle DF/PF, small squats, hip/knee flexion/extension, hip abduction/adduction, and hamstring curls with fast pacing and functional ROM excursion demonstrated Instruction provided to Patient. Response verbalize understanding/return demonstration. Patient non compliant with HEP on his own accord but does walk to and from meals and goes up and down 2 flights of steps at his baseline independantly PT Stairs and Home Exit Description: Instruct in proper safety and technique for stair training or home exit as directed in the goal. Problem:PT COMPREHENSIVE Goal:PT Stairs and Home Exit Completed Provided skilled training on 19 steps with use of 2 rails with supervision. Skills provided: Safety instruction make sure feet are fully on upper step to decrease fall risks Tolerance to activity fair. Instruction provided to Patient. Caregiver instructed to allow patient upstairs next week if this week goes well with bladder training Response return demonstration. Progress toward goal: partially met documented in this encounter Care Teams Nursing Staff Development Coordinator Relationship Specialty Start Date End Date Irving Jeffries MD [address] [place] [address] PCP - General Internal Medicine 07/16/21 07/04/24 Ton Ling APRN, ACCOUNT ADJUSTER [address] [place] [address] Nurse Practitioner Advanced Practice Nurse 04/24/23 Ame Scanlon SEO STRATEGIST, ACCOUNT ADJUSTER #2 [facility] [address] [place] [address] Nurse Practitioner Cardiology 08/23/23 Michael Ahmadi MD [address] [place] [address] Consulting Physician Medical Oncology 07/26/23 documented as of this encounter
--- OUTSIDE RECORDS SUMMARY | 2024-07-28 14:07 | XMS_ITS | Encounter Summary ---
Author Organization [facility] Address [address] [place] [address] Phone Care Team Providers Care Cambering Machine Operator Name Role Phone Irving Jeffries MD Primary Care Provider Ton Ling INDUSTRIAL WORKERS, EMISSIONS ENGINEER Unavailable [phone] Ame Scanlon INDUSTRIAL WORKERS, EMISSIONS ENGINEER Unavailable + [phone] Michael Ahmadi MD Unavailable [phone] Encounter Details Date Type Department Care Team (Late st Contact Info) Description 09/08/2023 Plan of Care Documentation [facility] [address] [place] [address] Social History Tobacco Use Types Packs/Day Years Used Date Smoking Tobacco: Former Cigarettes 2 20 Passive Smoke Exposure: Past Smokeless Tobacco: Never Alcohol Use Standard Drinks/Week Comments Not Currently 0 (1 standard drink = 0.6 oz pur e alcohol) [facility] Utilities Answer Date Recorded In the past 12 months has [employer] electric, gas, oil, or water company threatened [...] declined 09/03/2023 How often do you attend judaism or jewish serv ices? Patient declined 09/03/2023 Do you belong to any clubs o r organizations such as judaism groups, unions, fraternal or athletic groups, or [...] Total Score - Questions 1-9 0 07/31 [facility] of Occupat ional Health - Occupational Stress [...] as of this encounter Miscellaneous Notes * Home Health Plan of Care - Shelby Sandoval RN - 09/18/2023 9:16 AM HORTICULTURE INSTRUCTOR ADVANCE CARE PLANNING Patient has the following: No Living Will or Medical POA Patient has the following code status: CPR - Full Treatment (Full Code) Patient has an active POLST/POST/DNR form? no ICULTURE INSTRUCTOR documented in this encounter Plan of Treatment Not on file documented as of this encounter Visit Diagnoses Not on filedocumented in this encounter Additional Health Concerns Assessment Noted Time PHQ-9 Depression Total Score: 0 08/14/19 24 3:02 PM HORTICULTURE INSTRUCTOR documented as of this encounter Care Teams Cambering Machine Operator Relationship Specialty Start Date End Date Irving Jeffries MD [address] [place] [address] PCP - General Internal Medicine 07/16/21 07/04/24 Ton Ling APRN, EMISSIONS ENGINEER [address] [place] [address] Nurse Practitioner Advanced Practice Nurse 04/24/23 Ame Scanlon APRN, EMISSIONS ENGINEER #[address] [facility], [address] [place] [address] Nurse Practitioner Cardiology 08/23/23 Michael Ahmadi MD [address] [place] [address] Consulting Physician Medical Oncology 07/26/23 documented as of this encounter
--- OUTSIDE RECORDS SUMMARY | 2024-07-28 14:07 | XMS_ITS | Encounter Summary ---
Author Organization [facility] Address [address] [facility] [address] Phone Care Team Providers Care Clinical Review Specialist Name Role Phone Irving Jeffries MD Primary Care Provider Ton Ling STEAMBLASTER, PLACE CHANGE ROOF BOLTER Unavailable Ame Scanlon STEAMBLASTER, PLACE CHANGE ROOF BOLTER Unavailable Michael Ahmadi MD Unavailable Reason for Visit * Reason Comments Atrial Fibrillation Encounter Details Date Type Department Care Team (Late st Contact Info) Description 09/28/2023 2:15 PM ENTRY LEVEL PROJECT ENGINEER Office Visit [facility] - Internal Medicine - [place] [address] [place] [address] Irving Jeffries MD [address] [place] [address] Paroxysmal atrial fibrillation (HCC) (Primary Dx); Essential hypertension, benign; Mixed hyperlipidemia; Thrombocytopenia (HCC); GERD without esophagitis Discharge Disposition: Discharged to home or Selfcare Social History Tobacco Use Types Packs/Day Years Used Date Smoking Tobacco: Former Cigarettes 2 20 Passive Smoke Exposure: Past Smokeless Tobacco: Never Tobacco Cessation:Counseling Given: No Alcohol Use Standard Drinks/Week Comments Not Currently 0 (1 standard drink = 0.6 oz pur e alcohol) [facility] Utilities Answer Date Recorded In the past 12 months has e Remote Assistant, gas, oil, or water [employer] threatened to shut off services in your home? Patient declined 09/03/2023 Social Connection and Isolation Panel [NHANES] A nswer Date Recorded In a typical week, how many times do you talk on the phone with family, friends, or neighbors? Patient declined 09/03/2023 How often do you get togethe r with friends or relatives? Patient declined 09/03/2023 How often do you attend restorationism or taoist serv ices? Patient declined 09/03/2023 Do you [...] [facility] Occupat ional Health - [...] Reading Time Taken Comments Blood Pressure 110/58 09/28/2023 1:52 PM ENTRY LEVEL PROJECT ENGINEER Pulse 84 09/28/2023 1:52 PM ENTRY LEVEL PROJECT ENGINEER Temperature 36.8 ??C (98.2 ??F) 09/28/2023 1:52 PM CS T Respiratory Rate - - Oxygen Saturation 97% 09/28/2023 1:52 PM ENTRY LEVEL PROJECT ENGINEER Inhaled Oxygen Concentration - - Weight 85.7 kg (189 lb) 09/28/2023 1:52 PM ENTRY LEVEL PROJECT ENGINEER Height 182.9 cm (6') 09/28/2023 1:52 PM ENTRY LEVEL PROJECT ENGINEER Body Mass Index 25.63 09/28/2023 1:52 PM ENTRY LEVEL PROJECT ENGINEER documented in this encounter Progress Notes * Scarlet Clark, ELECTROPHYSIOLOGY NURSE PRACTITIONER - 09/28/2023 2:15 PM CST Iván Dumont, 77 y.o., male is here for Atrial Fibrillation Medication Refills: Patient reports/denies need for medication [...] mouth daily. 02/21/23 Yes Irving Jeffries MD cloZAPine (CLOZARIL) 100 MG Tablet Take 50 mg by mouth daily. Yes Melody Aguilar MD cloZAPine (CLOZARIL) 25 MG Tablet Take 50 mg by mouth nightly. Yes Melody Aguilar MD Clozapine 50 MG Tablet 09/07/23 Yes Melody Aguilar MD ferrous sulfate 325 (65 Fe) MG Tablet Take 1 Tablet by mouth daily. Patient not taking: Reported on 09/28/2023 09/25/23 Michael Ahmadi MD finasteride (PROSCAR) 5 MG Tablet 09/11/23 Yes Melody Aguilar MD metoprolol tartrate (LOPRESSOR) 25 MG Tablet Take 25 mg by mouth 2 times daily. Yes Melody Aguilar MD omeprazole (PriLOSEC) 20 MG CAPSULE DELAYED RELEASE Take 1 Capsule by mouth in the morning and at bedtime. 07/14/23 Yes Michael Ahmadi MD polyethylene glycol (GLYCOLAX, MIRALAX) 17 g Pack Take 1 Packet by mouth 2 times daily as needed for Constipation - 1st line. Dissolve in 4-8 oz of liquid. Indications: Constipation 09/05/23 Yes Uri Ny MD senna (SENOKOT) 8.6 MG Tablet Take 1 Tablet by mouth daily. 09/05/23 Yes Uri Ny MD sertraline (ZOLOFT) 50 MG Tablet Take 1 Tablet by mouth daily. Yes Melody Aguilar MD tamsulosin (FLOMAX) 0.4 MG Capsule 09/11/23 Yes Melody Aguilar MD Xarelto 15 MG Tablet 09/07/23 Yes Melody Aguilar MD There are no discontinued medications. I have reviewed the home medication list with the patient and have reconciled discrepancies. The list is accurate to the best of my knowledge. Smoking Status: Social History Tobacco Use Smoking status: Former Packs/day: 2.00 Years: 20.00 Additional pack years: 0.00 Total pack years: 40.00 Types: Cigarettes Passive exposure: Past Smokeless tobacco: Never Vaping Use Vaping Use: Never used Substance Use Topics Alcohol use: Not Currently Drug use: Never Smoking Cessation Counseling Given: no Health Care Maintenance: Health Maintenance Due Topic Date Due DTaP/Tdap/Td Immunization (1 - Tdap) Never done Respiratory Syncytial Virus (RSV) Immunization (Adult - or age 60+ years) (1 - 1-dose 60+ series) Never done Pneumococcal Immunization (65+ years) (2 of 2 - PPSV23 or PCV20) 05/14/2016 Zoster Immunization (2 of 3) 07/19/2016 Orders Pended: no The following BPA's have been addressed with the patient today: BMI and Smoking Y LEVEL PROJECT ENGINEER * Irving Jeffries MD - 09/28/2023 2:15 PM CST PROGRESS NOTE [facility] - INTERNAL MEDICINE [address] [place] [address] PHONE: [phone] FAX: [phone] 09/28/2023 NAME: Iván Dumont, : 1945, Assessment ASSESSMENT & PLAN: Return if symptoms worsen or fail to improve. Diagnoses and all orders for this visit: Paroxysmal atrial fibrillation (HCC) Comments: Controlled. DC Xarelto as per recommendation of flame cutter. Essential hypertension, benign Comments: Controlled. Continue current medications. Mixed hyperlipidemia Comments: Continue low-cholesterol diet. Thrombocytopenia (HCC) Comments: Continue follow-up with flame cutter. GERD without esophagitis Comments: Stable. Continue current medication. Other orders - Discontinue: Xarelto 15 MG Tablet - Clozapine 50 MG Tablet - metoprolol tartrate (LOPRESSOR) 25 MG Tablet; Take 25 mg by mouth 2 times daily. Will follow-up patient at the facility. Chief Complaint Patient presents with Atrial Fibrillation Atrial Fibrillation Patient is here for follow-up for atrial fibrillation other medical problems. Feeling well. No hematuria. Being followed by flame cutter for thrombocytopenia. Tolerating medications well. ROS Review of systems was negative, except as documented in HPI PHYSICAL EXAM VITALS: Wt Readings from Last 3 Encounters: 09/28/23 189 lb (85.7 kg) 09/25/23 193 lb 6.4 oz (87.7 kg) 09/22/23 187 lb 3.2 oz (84.9 kg) Temp Readings from Last 3 Encounters: 09/28/23 98.2 ??F (36.8 ??C) (Temporal) 09/25/23 97.6 ??F (36.4 ??C) 09/22/23 97.8 ??F (36.6 ??C) (Tympanic) BP Readings from Last 3 Encounters: 09/28/23 110/58 09/25/23 102/50 09/22/23 118/78 Pulse Readings from Last 3 Encounters: 09/28/23 84 09/25/23 110 09/22/23 81 Physical Exam Vitals and nursing note reviewed. [...] Abdomen is flat. Bowel sounds are normal. There is no distension. Palpations: Abdomen is soft. Tenderness: There is no abdominal tenderness. Musculoskeletal: General: Normal range of motion. Cervical [...] and allergies has been reviewed and updated. No Known Allergies Current Outpatient Medications: acetaminophen (TYLENOL) 325 MG Tablet amLODIPine (NORVASC) 10 MG Tablet cloZAPine (CLOZARIL) 100 MG Tablet cloZAPine (CLOZARIL) 25 MG Tablet Clozapine 50 MG Tablet finasteride (PROSCAR) 5 MG Tablet metoprolol tartrate (LOPRESSOR) 25 MG Tablet omeprazole (PriLOSEC) 20 MG CAPSULE DELAYED RELEASE polyethylene glycol (GLYCOLAX, MIRALAX) 17 g Pack senna (SENOKOT) 8.6 MG Tablet sertraline (ZOLOFT) 50 MG Tablet tamsulosin (FLOMAX) 0.4 MG Capsule I educated Iván regarding diagnoses and plan of care. He verbalizes understanding and will call the office if situation changes. Voice recognition software was utilized in this dictation. Despite proof reading, typographical errors and/or content errors may have occurred. By: Irving Jeffries MD 09/28/2023 2:21 PM ENTRY LEVEL PROJECT ENGINEER Y LEVEL PROJECT ENGINEER documented in this encounter Plan of Treatment Not on file documented as of this encounter Visit Diagnoses Diagnosis Paroxysmal atrial fibrillation (HCC)- Primary Atrial fibrillation Essential hypertension, benign Mixed hyperlipidemia Thrombocytopenia (HCC) Thrombocytopenia, unspecified GERD without esophagitis Esophageal reflux documented in this encounter Additional Health Concerns Assessment Noted Time PHQ-9 Depression Total Score: 0 08/14/19 24 3:02 PM ENTRY LEVEL PROJECT ENGINEER documented as of this encounter Care Teams Clinical Review Specialist Relationship Specialty Start Date End Date Irving Jeffries MD [address] [place] [address] PCP - General Internal Medicine 07/16/21 07/04/24 Ton Ling APRN, PLACE CHANGE ROOF BOLTER [address] [place] [address] Nurse Practitioner Advanced Practice Nurse 04/24/23 Ame Scanlon APRN, PLACE CHANGE ROOF BOLTER #2 [facility] [address] [place] [address] Nurse Practitioner Cardiology 08/23/23 Michael Ahmadi MD [address] [place] [address] Consulting Physician Medical Oncology 07/26/23 documented as of this encounter
--- OUTSIDE RECORDS SUMMARY | 2024-07-28 14:07 | XMS_ITS | Encounter Summary ---
Author Organization [facility] Address [address] [place] [address] Phone Care Team Providers Care Shop Teacher Name Role Phone Irving Jeffries MD Primary Care Provider Ton Ling SENIOR TREASURY ANALYST, TOOLING ENGINEERING TECH Unavailable Ame Scanlon SENIOR TREASURY ANALYST, TOOLING ENGINEERING TECH Unavailable + [phone] Michael Ahmadi MD Unavailable Reason for Visit * Auth/Cert (Routine) Specialty Diagnoses / Procedures Referred By Geeta t Referred To Contact Referral ID Status Reason Start Date Expiration Date Visits Re quested Visits Authorized [id number] 1 1 Encounter Details Date Type Department Care Team (Late st Contact Info) Description 09/13/2023 1:00 PM HEEL SEAT LASTER [facility] [address] [place] [address] Bea Clark RN [place] - PRIORITY VISIT Social History Tobacco Use Types Packs/Day Years Used Date Smoking Tobacco: Former Cigarettes 2 20 Passive Smoke Exposure: Past Smokeless Tobacco: Never Alcohol Use Standard Drinks/Week Comments Not Currently 0 (1 standard drink = 0.6 oz pur e alcohol) [facility] Utilities Answer Date Recorded In [...] declined 09/03/2023 How often do you attend nondenominational or episcopal serv ices? Patient declined 09/03/2023 Do you belong to any clubs o r organizations such as nondenominational groups, unions, fraternal or athletic groups, or [...] Total Score - Questions 1-9 0 07/31 [facility] of Occupat ional Health - Occupational [...] Sign Reading Time Taken Comments Blood Pressure 118/52 09/13/2023 1:19 PM HEEL SEAT LASTER Pulse 92 09/13/2023 1:19 PM HEEL SEAT LASTER Temperature 36.3 ??C (97.3 ??F) 09/13/2023 1:19 PM CS T Respiratory Rate - - Oxygen Saturation 96% 09/13/2023 1:19 PM HEEL SEAT LASTER Inhaled Oxygen Concentration - - Weight - - Height - - Body Mass Index - - documented in this encounter Plan of Treatment Not on file documented as of this encounter Visit Diagnoses Not on filedocumented in this encounter Additional Health Concerns Assessment Noted Time PHQ-9 Depression Total Score: 0 08/14/19 24 3:02 PM HEEL SEAT LASTER documented as of this encounter Home Health Visit - Care Plan Visit Details Visit Type -SN - Priority Vi sit Discipline -Detention Problems Problem Description Start Date Status Goals Interve ntions FALL PREVENTION (O) Disciplines: SN, PT, OT, BINDERY LIBRARY TECHNICAL ASSISTANT, HCA, SCHOOL BUS AIDE, RT 08/09/2023 Active 1 goal linked to scheduled/documen hector intervention 1 goal intervention scheduled/document ed in this visit ALL HH VITAL SIGN PARAMETERS Disciplines: All Home Care 08/09/2023 Active - 1 problem intervention scheduled/document ed in this visit PNEUMONIA ORDERS Disciplines: Detention Pneumonia Orders 08/09/2023 Active 1 goal linked to scheduled/documen hector intervention 1 goal intervention scheduled/document ed in this visit SAFETY/PREVENTI ON EDUCATION Disciplines: Detention Safety/Preventio n Education 08/09/2023 Active - 1 problem intervention scheduled/document ed in this visit SN GENERAL ORDERS Disciplines: Detention SN General Orders 08/09/2023 Active 1 goal linked to scheduled/documen hector intervention 2 goal interventions scheduled/document ed in this visit DEPRESSION Disciplines: Detention Depression Risk 08/09/2023 Active 1 goal linked to scheduled/documen hector intervention 1 goal intervention scheduled/document ed in this visit DARYL GENERAL (ORDER ONLY) Disciplines: Detention SN Resumption of Care 09/07/2023 Active - [...] went into afib w/RVR. Patient lives at snf with 24 hour care. Skilled Nurse Focus: catheter maintenance/education Physical Therapy to evaluate and treat for: weakness, deconditioning Occupational Therapy to evaluate and treat for: ADL education with strength conservation Speech Therapy to evaluate and treat for: none ordered Social Work Focus: none ordered Layout Designer to provide: none ordered Past Medical History: [...] improve before you begin to feel better and Medication- Do not stop taking medication without notifying your physician, most medications take 2-3 weeks before you notice changes in the way you feel Instruction provided to: Patient. Response verbalize understanding. DARYL General (Order Only) Description: DARYL in the last 5 days of cert period: No 77 y.o. male admitted to [facility] for sepsis from 09/03/23 to 09/05/23 Resumption of Home Care Services for weakness, deconditioning, catheter maintenance and education Dr. Jeffries contacted and agrees with plan of care. Ordered services: Skilled Nurse for: catheter maintenance and education PT for: weakness deconditioning, imbalance OT for: none ordered ST for: not needed/ordered at this time Social Work for: not needed/ordered at this time Layout Designer for: not needed/ordered at this time Resume other disciplines: PT to evaluate and treat 1 week 1 effective week of 09/08/23. Plan of care orders/ goals reviewed and updated, patient agrees with plan of care Problem:DARYL GENERAL (ORDER ONLY) Completed documented in this encounter Care Teams Shop Teacher Relationship Specialty Start Date End Date Irving Jeffries MD [address] [facility] [place] [address] PCP - General Internal Medicine 07/16/21 07/04/24 Ton Ling APRN, TOOLING ENGINEERING TECH [address] [place] [address] Nurse Practitioner Advanced Practice Nurse 04/24/23 Ame Scanlon APRN, TOOLING ENGINEERING TECH #2 [facility], [address] [place] [address] Nurse Practitioner Cardiology 08/23/23 Michael Ahmadi MD [address] [place] [address] Consulting Physician Medical Oncology 07/26/23 documented as of this encounter
--- OUTSIDE RECORDS SUMMARY | 2024-07-28 14:07 | XMS_ITS | Encounter Summary ---
Author Organization [employer] Care Team Providers Care Supervisor Locomotive Name Role Phone Irving Jeffries MD Primary Care Provider [phone] Ton Ling APRN, WAFER PRODUCTION LEAD WORKER Unavailable [phone] Ame Scanlon APRN, WAFER PRODUCTION LEAD WORKER Unavailable + [phone] Michael Ahmadi MD Unavailable [phone] Encounter Details Date Type Department Care Team (Latest Contact Info) Description 08/28/2023 Travel Social History Tobacco Use Types Packs/Day Years Used Date Smoking Tobacco: Former Cigarettes 2 20 Passive Smoke Exposure: Past Smokeless Tobacco: Never Alcohol Use Standard Drinks/Week Comments Not Currently 0 (1 standard drink = 0.6 oz pur e alcohol) [facility] Utilities Answer Date Recorded In the past 12 months has [employer], gas, oil, or water [employer] threatened to shut off services in your [...] answer 08/14/2023 How often do you attend [facility] or rastafarian services? Patient unable to answer [...] Total Score - Questions 1-9 0 07/31 [facility] of Occupat ional [facility] - Occupational Stress Questionnaire Answer Date [...] Time 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 07/28/2023 09/04/2023 8:45 AM DRAWER IN Assessment Noted Time PHQ-9 Depression Total Score: 0 08/14/19 3:02 PM DRAWER IN documented as of this encounter Care Teams Supervisor Locomotive Relationship Specialty Start Date End Date Irving Jeffries MD [address] [place] [address] PCP - General Internal Medicine 07/16/21 07/04/24 Ton Ling HSPT TUTOR, WAFER PRODUCTION LEAD WORKER [address] [place] [address] Nurse Practitioner Advanced Practice Nurse 04/24/23 Ame Scanlon, HSPT TUTOR, WAFER PRODUCTION LEAD WORKER #[address] [facility] [address] [place] [address] Nurse Practitioner Cardiology 08/23/23 Michael Ahmadi MD [address] [place] [address] Consulting Physician Medical Oncology 07/26/23 documented as of this encounter
--- OUTSIDE RECORDS SUMMARY | 2024-07-28 14:07 | XMS_ITS | Encounter Summary ---
Author Organization [facility] Address [address] [place] [address] Phone Care Team Providers Care Hogshead Wrecker Name Role Phone Irving Jeffries MD Primary Care Provider Ton Ling LEAD MECHANICAL ENGINEER, ETHICS INSTRUCTOR Unavailable Ame Scanlon LEAD MECHANICAL ENGINEER, ETHICS INSTRUCTOR Unavailable [phone]- [phone] Michael Ahmadi MD Unavailable [phone] Reason for Visit * Reason Comments Fever Urinary Catheter Problem Blood in urine * Auth/Cert (Routine) Specialty Diagnoses / Procedures Referred By Contac t Referred To Contact Diagnoses Sepsis, unspecified organism Reviewed KS 09/05 Uri yN MD [address] [place] [address] Phone: tel: fax: Referral ID Status Reason Start Date Expiration Date Visits Re quested Visits Authorized [id number] 1 1 Encounter Details Date Type Department Care Team (Latest Contact Info) Description 09/02/2023 11:26 PM MEDICINE ASSISTANT - 09/05/2023 3:09 PM MEDICINE ASSISTANT Hospital Encounter [facility] Surg [address] [place] [address] [phone] Edmundo Parsons MD [address] [place] [address] Maricarmen Alvarez APRN, YAA [address] [place] [address] Uri Ny MD [address] [place] [address] Sepsis (HCC) Discharge Disposition: Home Health Care [facility] Social History Tobacco Use Types Packs/Day Years [...] declined 09/03/2023 How often do you attend buddhist or cheondoism serv ices? Patient declined 09/03/2023 Do you belong to any clubs o r organizations such as buddhist groups, unions, fraternal or athletic groups, or [...] Total Score - Questions 1-9 0 07/31 [facility] - Occupational [...] place to sleep or slept in a [facility] (including now)? Patient declined 09/03/2023 Sexually Active Control Partners Comments Never Sex and Gender Information Value Date Recorded Sex Assigned at Not on file Legal Sex Male 11:18 PM CDT Gender Identity Not on file Sexual Orientation Not on file documented as of this encounter Last Filed Vital Signs Vital Sign Reading Time Taken Comments Blood Pressure 103/55 09/05/2023 12:00 PM MEDICINE ASSISTANT Pulse 100 09/05/2023 12:00 PM MEDICINE ASSISTANT Temperature 36.3 ??C (97.3 ??F) 09/05/2023 12:[address] Respiratory Rate 20 09/05/2023 12:00 PM MEDICINE ASSISTANT Oxygen Saturation 97% 09/05/2023 12:00 PM MEDICINE ASSISTANT Inhaled Oxygen Concentration - - Weight 86.2 kg (190 lb) 09/03/2023 4:49 AM MEDICINE ASSISTANT Height 182.9 cm (6') 09/03/2023 4:49 AM MEDICINE ASSISTANT Body Mass Index 25.77 09/03/2023 4:49 AM MEDICINE ASSISTANT documented in this encounter Functional Status * Audit-C Score Answer Date of Assessment Author -1 09/03/2023 6:16 AM Norman Castellanos RN * Within the last year, have you been humiliated or emotionally abused in other ways by your partner or ex-partner? Answer Date of Assessment Author Patient declined 09/03/2023 6:16 AM Norman Castellanos RN * Within the last year, have you been afraid of your partner or ex-partner? Answer Date of Assessment Author Patient declined 09/03/2023 6:16 AM Norman Castellanos RN * Within the last year, have you been raped or forced to have any kind of sexual activity by your partner or ex-partner? Answer Date of Assessment Author Patient declined 09/03/2023 6:16 AM Norman Castellanos RN * Within the last year, have you been kicked, hit, slapped, or otherwise physically hurt by your partner or ex-partner? Answer Date of Assessment Author Patient declined 09/03/2023 6:16 AM Norman Castellanos RN * Question Answer Date of Assessment Author Q1: How often do you have a drink containing alcohol? Patient declined 09/03/2023 6:16 AM Norman Castellanos RN Q2: How many drinks containing alcohol do you have on a typical day when you are drinking? Patient declined 09/03/2023 6:16 AM Norman Castellanos RN Q3: How often do you have six or more drinks on one occasion? Patient declined 09/03/2023 6:16 AM Noramn Castellanos RN documented as of this encounter Discharge Summaries * rUi Ny MD - 09/05/2023 12:41 PM CST [facility] DISCHARGE SUMMARY Name: Iván Dumont Age: 77 y.o. : 1945 Attending Physician: Uri Ny MD Admission Date/Time: 09/02/2023 Discharge Date: 09/05/2023 Primary Care Physician: Irving Jeffries MD Discharging Provider: Uri Ny MD INSTRUCTIONS FOR PHYSICIANS ON FOLLOW UP AFTER DISCHARGE: Follow-up Information Follow up With Specialties Details Why Contact Info Irving Jeffries MD Internal Medicine Call in 1 week(s) [address] [place] [address] Discharge Instructions: Discharge Condition: improved Disposition: Continue previous Home Health services. Diet: Regular Diet Activity: activity as tolerated Primary Diagnosis: Sepsis (HCC) Principal Problem: Sepsis (HCC) Active Problems: GERD without esophagitis Mixed hyperlipidemia Essential hypertension, benign Chronic undifferentiated schizophrenia (HCC) Thrombocytopenia (HCC) Anemia Paroxysmal atrial fibrillation (HCC) Gross hematuria History of urinary retention Catheter-associated urinary tract infection Present on Admission: ??? Sepsis (HCC) ??? Anemia ??? Chronic undifferentiated schizophrenia (HCC) ??? Essential hypertension, benign ??? GERD without esophagitis ??? Mixed hyperlipidemia ??? Paroxysmal atrial fibrillation (HCC) ??? Thrombocytopenia (HCC) ??? Gross hematuria ??? History of urinary retention ??? Catheter-associated urinary tract infection Admitting Diagnoses: Sepsis, metabolic encephalopathy HOSPITAL COURSE: Iván Dumont was admitted 09/02/2023 with Sepsis (HCC) . Iván Dumont is a 77 y.o. male with a PMHx of AFib, CVA, HTN, HLD, GERD, schizophrenia, and anxiety who presented to the ED with complaints of altered mental status and hematuria. History is limited as patient is a poor historian. The patient presented to the ED earlier tonight from [facility] with a friend who stated that staff at the facility reported that the patient has had increased confusion since 3:00 p.m. and hematuria noted in his Barakat catheter. Upon arrival to the ED, the patient was oriented x4, however forgetful. The patient was recently admitted from 07/28-08/07 secondary to sepsis, acute respiratory failure, AFib with RVR, and RSV. While admitted, patient developed urinary retention requiring the placement of an indwelling Barakat catheter. He was subsequently discharged with the catheter in place. When he followed up with Urology on 08/15, the catheter was removed,however the patient redeveloped the retention, prompting ED visit for replacement of the barakat catheter on 08/18. Catheter has remained in place since that time. Upon arrival to the ED he was found oneyda febrile, tachycardic, and tachypneic. Lab analysis revealed lactic acid 2.4, WBC 19.8, [id number], and hemoglobin 11. The urinalysis was positive for blood, packed RBCs, nitrites, and 500 leukocyte esterase, however there was no bacteria or WBCs present. A chest xray was obtained showing focalopacity adjacent to the right upper chest wall cardiac lead.Patient was treated with ceftriaxone and IV fluids, and has since been admitted for further management. I examined the patient after arrival to the Med/Surg floor. He was awake, alert, and oriented x4. Patient states that he may have been confused earlier in the day. Denies fever prior to arrival in the ED. Denies complaints of chest pain, shortness of breath, cough, chills, abdominal pain, nausea, vomiting, and diarrhea. Patient was admitted for further management and was evaluated by Urology. Patient on admission met criteria for sepsis with elevated lactic acid leukocytosis, fever and hematuria with acute kidney injury. WBC trended down with IV antibiotics, UA was positive for pyuria, was thought to be secondary to catheter associated UTI. Urine culture grew greater than 100,000 colonies of Pseudomonas aeruginosa susceptibleto Levaquin. The indwelling catheter was continued, the gross hematuria improved during the hospital stay, patient was discharged to follow-up with primary care physician in 1 week and Urology in 1-2 weeks. Finasteride and tamsulosin were continued at the time of discharge. Surgeries performed during stay: * No surgery found * Consults: Treatment Team: Consulting Physician: Shruthi Anne MD; Consulting Physician: Grace Frey MD Exam Day of Discharge: Temp Av.2 ??F (36.8 ??C) Min: 97.3 ??F (36.3 ??C) Max: 99.5 ??F (37.5 ??C) BP Min: 106/55 Max: 133/92 Pulse Av.5 Min: 111 Max: 120 Heart Rate (Monitor) Av.1 Min: 87 Max: 126 Resp Av.8 Min: 18 Max: 20 SpO2 Av.6 % Min: 97 % Max: 100 % BMI: Body mass index is 25.77 kg/m??. Exam: General: alert, moderately built and nourished, not in any distress Skin: Normal skin turgor, no rashes Head: ??Normocephalic, without obvious abnormality HEENT: PERRLA, sclera anicteric Neck: normal, supple, no thyromegaly Heart: ??regular rate and rhythm, S1, S2 normal, no murmur, click, rub or gallop Lungs: ?? clear to auscultation bilaterally, no rhonchi or wheezes ? Abdominal: soft, non-tender; bowel sounds normal; no masses, ??no organomegaly Extremities: normal strength, tone, and muscle mass Neuro: oriented x3, CN II-XII intact Psychological: Intellectual disability, flat affect Lab / Imaging Review: Lab Results Component Value Date WBC 12.42 [...] >60 09/05/2023 Lab Results Component Value Date GLUCOSEPOCT 193 (H) 07/31/2023 Lab Results Component Value Date INR 1.4 (H) 08/18/2023 PTP 17.7 (H) 08/18/2023 Lab Results Component Value Date HGBA1C 5.8 09/03/2023 Lab Results Component Value Date [id number] 486 03/15/2023 No results found for: CPK , CPKI , CKMB , CKMBNI , CKMBPOCT , CKMBRELINDX , TROPONINI , POCTRP Lab Results Component Value Date FERRITIN 23 04/24/2023 No results found for: FOLATE Lab Results Component Value Date PHARTERIAL 7.43 07/30/2023 PO2ART 76 07/30/2023 [id number] 34 (L) 07/30/2023 O2ART 92 (L) 07/30/2023 Lab Results Component Value Date LACTICA 1.3 09/03/2023 CT CHEST ABDOMEN AND PELVIS W CONTRAST Result Date: 09/03/2023 IMPRESSION: No focal pneumonic consolidation. Unchanged, lingular opacity, likely atelectasis. Interval resolution of bilateral pleural effusions. Marked prostatomegaly markedly distended urinary bladder with mild right pelvicaliectasis and mild bilateral hydroureter. These findings are most compati ble with bladder outlet obstruction. Recommend clinical correlation with serum PSA levels for further evaluation. Massively distended urinary bladder with a Barakat catheter terminating in the patient's urethra. Recommend removal or repositioning as clinically warranted. Enlarged periportal lymph node measures 2.2 cm slightly increased compared to prior 07/29/2023. Recommend follow-up abdomen pelvis CT with intravenous contrast in 3 months to document stability. Cholelithiasis without evidence ofacute cholecystitis. Pulmonary nodule recommendation: Per Fleischner Society Guidelines, no follow-up needed if patient is low-risk (and has no known or suspected primary neoplasm). Non- contrast chest CT can be considered in 12 months if patient is high-risk. CT HEAD OR BRAIN WO CONTRAST Result Date: 09/03/2023 IMPRESSION: No acute intracranial findings. MRI is more sensitive for the detection of acute cerebral ischemia. XR CHEST SINGLE VIEW PORTABLE Result Date: 09/03/2023 IMPRESSION: Focal opacity adjacent to right upper chest wall cardiac lead. Recommend removal and follow-up standard two-view chest radiograph for further evaluation. DISCHARGE MEDICATION LIST: Medication List START taking these medications levoFLOXacin 750 MG Tabs Commonly known as: LEVAQUIN Take 1 Tablet by mouth daily for 5 days. polyethylene glycol 17 g Pack Commonly known as: GLYCOLAX, MIRALAX Take 1 Packet by mouth 2 times daily as needed for Constipation - 1st line. Dissolve in 4-8 oz of liquid. Indications: Constipation senna 8.6 MG Tabs Commonly known as: SENOKOT Take 1 Tablet by mouth daily. CONTINUE taking these medications acetaminophen 325 MG Tabs Commonly known as: TYLENOL amLODIPine 10 MG Tabs Commonly known as: NORVASC Take 1 Tablet by mouth daily. Clozapine 150 MG Tab-disperse omeprazole 20 MG Cap-del-rel Commonly known as: PriLOSEC Take 1 Capsule by mouth in the morning and at bedtime. sertraline 50 MG Tabs Commonly known as: ZOLOFT STOP taking these medications Colace 100 MG Caps Generic drug: docusate sodium lactulose 10 GM/15ML Soln Commonly known as: CHRONULAC Where to Get Your Medications Information about where to get these medications is not yet available Ask your nurse or doctor about these medications ?? levoFLOXacin 750 MG Tabs ?? polyethylene glycol 17 g Pack ?? senna 8.6 MG Tabs Time spent on interview, examination, final orders, recommendations, and care coordination for thishospital discharge: Greater than 30 minutes spent in coordinating care Thank you very much for allowing the [facility] Adult Hospitalist Service to participate in the care of this patient. If you have any questions, please don't hesitate to call. Signed: Uri Ny MD, 09/05/2023, 12:43 PM MEDICINE ASSISTANT CINE ASSISTANT documented in this encounter Discharge Instructions * Discharge Instructions* Jarred Edmond - 09/03/2023 8:02 AM MEDICINE ASSISTANT You have chosen [facility] for the services your doctor has ordered. The agency will call you to schedule initial visit prior to your hospital discharge or within a business day of your hospital discharge. If you have not been contacted to schedule your initial visit or need to contact the agency, pleasecall [facility] [phone] CINE ASSISTANT documented in this encounter Medications at Time of Discharge acetaminophen (TYLENOL) 325 MG Tablet Take 2 Tablets by mouth every 6 hours as needed for Mild or more severe pain. cloZAPine (CLOZARIL) 25 MG Tablet Take 50 mg by mouth nightly. sertraline (ZOLOFT) 50 MG Tablet Take 1 Tablet by mouth daily. amLODIPine (NORVASC) 10 MG Tablet Take 1 Tablet by mouth daily. 30 Tablet 11 02/21/2023 4 cloZAPine (CLOZARIL) 100 MG Tablet Take 50 mg by mouth daily. 4 levoFLOXacin (LEVAQUIN) 750 MG Tablet [The details of the medication are not available because there are pending changes by a [facility] clinician.] 5 Tablet 09/05/2023 4 omeprazole (PriLOSEC) [...] 09/05/2023 4 documented as of this encounter Progress Notes * Ton Ling, LEAD MECHANICAL ENGINEER, ETHICS INSTRUCTOR - 09/05/2023 9:06 AM CST INPATIENT PROGRESS NOTE- HOSPITALIST Date of Service: 09/05/2023 Iván Dumont is a 77 y.o. male at Hospital Day (LOS: 2 days) Subjective: This patient is being seen for chief c/o of Sepsis ([facility]) Patient seen and examined, notes were reviewed. No Fever, Not in respiratory distress. No acute events overnight. Catheter remains patent and draining yellow urine. Creatinine stable at 0.75. WBC improving 12.42. Urine culture growing pseudomonas--sensitivity pending. ID following. Blood cultures show NGTD. Objective: Patient Vitals for the past 24 hrs: BP Temp Pulse Heart Rate (Monitor) Resp SpO2 Temp src 09/05/23 0732 120/44 97.3 ??F (36.3 ??C) (!) 111 -- 20 97 % Tympanic 09/05/23 0701 -- -- -- 98 -- -- -- 09/05/23 0611 130/51 98.3 ??F (36.8 ??C) -- (!) 108 18 100 % -- 09/05/23 0500 -- -- -- 91 -- -- -- 09/05/23 0345 -- -- -- 95 -- -- -- 09/05/23 0304 -- -- -- 87 -- -- -- 09/05/23 0101 -- -- -- 92 -- -- -- 09/05/23 0049 114/46 98.4 ??F (36.9 ??C) -- 89 18 97 % -- 09/04/23 2301 -- -- -- 97 -- -- -- 09/04/23 2109 106/55 99.5 ??F (37.5 ??C) -- (!) 103 18 97 % -- 09/04/23 2100 -- -- -- 98 -- -- -- 09/04/23 1901 -- -- -- (!) 110 -- -- -- 09/04/23 1701 -- -- -- (!) 101 -- -- -- 09/04/23 1600 (!) 133/92 97.7 ??F (36.5 ??C) (!) 120 -- 20 97 % -- 09/04/23 1500 -- -- -- 96 -- -- -- 09/04/23 1300 -- -- -- (!) 107 -- -- -- 09/04/23 1200 141/82 97.9 ??F (36.6 ??C) 100 -- 20 97 % Tympanic 09/04/23 1101 -- -- -- 88 -- -- -- Temp (48hrs), Av.7 ??F (37.1 ??C), Min:97.2 ??F (36.2 ??C), Max:100.5 ??F (38.1 ??C) I&O: I/O last 3 completed shifts: In: 360 [P.O.:360] Out: 2951 [Urine:2951] Weights: Wt Readings from Last 3 Encounters: 09/03/23 190 lb (86.2 kg) 08/30/23 190 lb (86.2 kg) 08/29/23 189 lb 8 oz (86 kg) Intake/Output Summary (Last 24 hours) at 09/05/2023 0906 Last data filed at 09/05/2023 0809 Gross per 24 hour Intake 0 ml Output 1750 ml Net -1750 ml General: alert, oriented and in no acute distress. Skin: normal coloration and turgor, no rashes, no suspicious skin lesions noted. HEENT: normocephalic, atraumatic. Pupils equal Neck: No JVD CVS: normal rate Chest:symmetric air entry and normal respiratory effort. Abdominal: soft, nontender, nondistended : cath draining clear yellow urine Extremities: peripheral pulses normal Neuro: alert, oriented, normal speech Active Scheduled and PRN meds ceFEPIme (MAXIPIME) IV, 1 g, Q8H acetaminophen, 650 mg, Q4H PRN Or acetaminophen, 650 mg, Q4H PRN magnesium hydroxide, 30 mL, Daily PRN melatonin, 6 mg, Nightly PRN polyethylene glycol, 17 g, BID PRN Prochlorperazine Edisylate, 5 mg, Q6H PRN senna, 1 Tablet, BID PRN Lab Review and radiology Recent Labs Units 09/05/23 0452 09/04/23 0505 09/03/23 0533 SODIUM mmol/L 138 137 137 POTASSIUM mmol/L 3.9 3.6 3.9 CHLORIDE mmol/L 109* 107 104 CO2VEN mmol/L 20* 22 22 GLUCOSE mg/dL 98 101* 113* ANIONGAP mmol/L 12.9 11.6 14.9 BUN mg/dL 12 11 11 CREATININE mg/dL 0.75 0.70 0.77 CALCIUM mg/dL 8.5* 8.4* 8.3* Recent Labs Units 09/05/23 0452 09/04/23 0505 09/03/23 0533 WBC 10(3)/mcL 12.42* 16.40* 19.13* HEMOGLOBIN g/dL 10.5* 10.7* 10.7* HEMATOCRIT % 32.3* 33.5* 33.9* PLATELETCNT 10(3)/mcL 65* 55* 66* MCV fL 89.7 91.3 92.6 No results found for: TROPONINI , POCTRP No results for input(s): GLUCOSEPOCT in the last 72 hours. No results for input(s): INR , PTP in the last 72 hours. No results found. Assessment : Overall condition: improved Active Hospital Problems Diagnosis Date Noted Sepsis ([facility]) 09/03/2023 Gross hematuria 09/03/2023 History of urinary retention 09/03/2023 Catheter-associated urinary tract infection 09/03/2023 Paroxysmal atrial fibrillation ([facility]) 08/14/2023 Anemia Thrombocytopenia ([facility]) 02/02/2023 Chronic undifferentiated schizophrenia ([facility]) 07/17/2020 Essential hypertension, benign 07/17/2020 GERD without esophagitis 07/17/2020 Mixed hyperlipidemia 07/17/2020 Resolved Hospital Problems No resolved problems to display. Labs/chart/meds and notes reviewed. PLAN: -Maintain indwelling catheter at this time to allow for bladder rest and to allow urethra to heal. Gross hematuria has resolved at this time. May irrigate catheter with 30-60 cc of sterile water for any clot obstruction should hematuria return. -Plan to keep catheter in place for 1-2 weeks -Continue Tamsulosin and Finasteride. -continue abx. Tailor to sensitivity when available. -Will need outpatient voiding trial once uti has cleared and has had time for urethra to heal. -If voiding trial fails may benefit from further work-up with UDS and cystoscopy. Documentation for this visit on 09/05/2023 was completed using a template. I have seen and examinedthe patient. Everything documented was personally performed at this visit with the necessary additions, deletions and changes made as appropriate. Ton Ling APRN, CNP 09/05/2023 9:06 AM MEDICINE ASSISTANT CINE ASSISTANT * Uri Ny MD - 09/04/2023 9:03 AM CST [facility] INPATIENT DAILY PROGRESS NOTE Iván Dumont is a 77 y.o. male at Hospital LOS: 1 day Assessment: Active Hospital Problems Diagnosis Date Noted ??? Sepsis ([facility]) 09/03/2023 ??? Gross hematuria 09/03/2023 ??? History of urinary retention 09/03/2023 ??? Catheter-associated urinary tract infection 09/03/2023 ??? Paroxysmal atrial fibrillation ([facility]) 08/14/2023 ??? Anemia ??? Thrombocytopenia ([facility]) 02/02/2023 ??? Chronic undifferentiated schizophrenia ([facility]) 07/17/2020 ??? Essential hypertension, benign 07/17/2020 ??? GERD without esophagitis 07/17/2020 ??? Mixed hyperlipidemia 07/17/2020 Resolved Hospital Problems No resolved problems to display. Vitals: 09/04/23 0502 09/04/23 0701 09/04/23 0745 09/04/23 0820 Temp: 97.2 ??F (36.2 ??C) TempSrc: Heart Rate (Monitor): 95 (!) 110 Pulse: 100 Resp: 20 BP: 112/61 Height: Weight: SpO2: 97% 97% O2 Device: None (Room air) Body mass index is 25.77 kg/m??. I/O last 3 completed shifts: In: 3000 [I.V.:3000] Out: 2750 [Urine:2750] Plan: Plan Assessment & Plan: 1. Sepsis: Patient on admission met criteria for sepsis with leukocytosis fever, tachycardia tachypnea, likely source [place] [address] lactic acid 2.4 dropped to 1.3 with IV fluids and IV antibiotics. Blood culture urine culture pending. Currently on cefepime. WBC trending down 16,000 this morning. 2. Catheter associated urinary tract infection: Patient has chronic indwelling catheter, UA was positive for pyuria, urine culture pending, catheter exchange was done on admission. Currently on cefepime continue the same. 3. Thrombocytopenia: Patient has chronic thrombocytopenia, platelet count 48488. 4. Paroxysmal atrial fibrillation: Rate controlled with beta-lilly, patient was on Xarelto previously and was discontinued due to thrombocytopenia. 5. Hypertension blood pressure stable continue home medication. 6. Hyperlipidemia: Resume home medication currently on statin. 7. Gastroesophageal reflux disease: Continue PPI. 8. Schizophrenia/anxiety depression: Patient lives in [facility]. 9. VTE Prophylaxis: Sequential Compression Devices 10. Code Status: Code Status: Full Code 11. Anticipated Disposition at discharge Home with no needs 12. Expected discharge date: Subjective: Interval History: No acute events overnight. Patient does not complain of any new symptoms. Feels better, able to tolerate diet well. Review of Systems: A 14 point comprehensive review of systems was negative, except as documented in HPI. Intake/Output Summary (Last 24 hours) at 09/04/2023 0904 Last data filed at 09/04/2023 0853 Gross per 24 hour Intake 0 ml Output 2750 ml Net -2750 ml Inpatient Scheduled Medications: cefTRIAXone (ROCEPHIN) IV/IM, 2 g, Q24H Inpatient PRN Medications: acetaminophen, 650 mg, Q4H PRN Or acetaminophen, 650 mg, Q4H PRN magnesium hydroxide, 30 mL, Daily PRN melatonin, 6 mg, Nightly PRN polyethylene glycol, 17 g, BID PRN Prochlorperazine Edisylate, 5 mg, Q6H PRN senna, 1 Tablet, BID PRN Inpatient IV Infusions: Objective: Exam: General: alert, moderately built and nourished, not in any distress Skin: Normal skin turgor, no rashes Head: Normocephalic, without obvious abnormality HEENT: PERRLA, sclera anicteric Neck: normal, supple, no thyromegaly Heart: regular rate and rhythm, S1, S2 normal, no murmur, click, rub or gallop Lungs: clear to auscultation bilaterally, no rhonchi or wheezes Abdominal: soft, non-tender; bowel sounds normal; no masses, no organomegaly Extremities: normal strength, tone, and muscle mass Neuro: oriented x3, CN II-XII intact Psychological: Intellectual disability, flat affect Lab Results: Lab Results Component Value Date PHARTERIAL 7.43 07/30/2023 PO2ART 76 07/30/2023 [id number] 34 (L) 07/30/2023 O2ART 92 (L) 07/30/2023 No results for input(s): BNP , BNPPOCT in the last 72 hours. Recent Labs Units 09/04/23 0505 09/03/23 0533 09/03/23 0001 WBC 10(3)/mcL 16.40* 19.13* 19.81* HEMOGLOBIN g/dL 10.7* 10.7* 11.0* HEMATOCRIT % 33.5* 33.9* 34.7* PLATELETCNT 10(3)/mcL 55* 66* 94* MCV fL 91.3 92.6 91.6 No results for input(s): INR , PTP in the last 72 hours. Recent Labs Units 09/04/23 0505 09/03/23 0533 09/03/23 0001 SODIUM mmol/L 137 137 136 POTASSIUM mmol/L 3.6 3.9 3.8 CHLORIDE mmol/L 107 104 104 CO2VEN mmol/L 22 22 22 ANIONGAP mmol/L 11.6 14.9 13.8 GLUCOSE mg/dL 101* 113* 124* BUN mg/dL 11 11 13 CREATININE mg/dL 0.70 0.77 0.87 BCRATIO8 ratio 16 14 15 TOTALPROTEIN g/dL -- -- 7.1 ALBUMIN g/dL -- -- 4.0 CALCIUM mg/dL 8.4* 8.3* 9.0 TBIL mg/dL -- -- 0.5 SGOTAST U/L -- -- 13 SGPTALT U/L -- -- 14 ALKALINEPHO U/L -- -- 78 GFRNA >60 >60 >60 GFRA >60 >60 >60 No results found for: CPK , CPKI , CKMB , CKMBNI , CKMBPOCT , CKMBRELINDX , TROPONINI , POCTRP No results found for: FOLATE No results found for: MAGNESIUM Lab Results Component Value Date LACTICA 1.3 09/03/2023 Lab Results Component Value Date [id number] 486 03/15/2023 Lab Results Component Value Date FERRITIN 23 04/24/2023 Lab Results Component Value Date GLUCOSEPOCT 193 (H) 07/31/2023 Lab Results Component Value Date DDIMER 1.71 (H) 07/29/2023 EKG: EKG 12 LEAD Result Date: 08/09/2023 Atrial fibrillation with rapid ventricular response with premature ventricular or aberrantly conducted complexes Septal infarct , age undetermined Abnormal ECG No previous ECGs available Confirmed byeMga Gil ([id number]) on 08/09/2023 10:22:20 AM Imaging: No results found. By: Uri Ny MD, 09/04/2023 9:04 AM MEDICINE ASSISTANT CINE ASSISTANT documented in this encounter H&P Notes * Maricarmen Alvarez APRN, ETHICS INSTRUCTOR - 09/03/2023 3:44 AM CST HOSPITALIST ADMISSION HISTORY & PHYSICAL EXAM PATIENT NAME: Iván Dumont, : 1945, MR#[id number] CHIEF COMPLAINT Altered mental status HPI Iván Dumont is a 77 y.o. male with a PMHx of AFib, CVA, HTN, HLD, GERD, schizophrenia, and anxiety who presented to the ED with complaints of altered mental status and hematuria. History is limited as patient is a poor historian. The patient presented to the ED earlier tonight from [facility] with a friend who stated that staff at the facility reported that the patient has had increased confusion since 3:00 p.m. and hematuria noted in his Barakat catheter. Upon arrival to the ED, the patient was oriented x4, however forgetful. The patient was recently admitted from 07/28-08/07 secondary to sepsis, acute respiratory failure, AFib with RVR, and RSV. While admitted, patient developed urinary retention requiring the placement of an indwelling Barakat catheter. He was subsequently discharged with the catheter in place. When he followed up with Urology on 08/15, the catheter was removed,however the patient redeveloped the retention, prompting ED visit for replacement of the barakat catheter on 08/18. Catheter has remained in place since that time. Upon arrival to the ED tonight, he was found to be febrile, tachycardic, and tachypneic. Lab analysis revealed lactic acid 2.4, WBC 19.8, platelets 94, and hemoglobin 11. The urinalysis was positive for blood, packed RBCs, nitrites, and 500 leukocyte esterase, however there was no bacteria or WBCs present. A chest xray was obtained showing focal opacity adjacent to the right upper chest wall cardiac lead. Patient was treated with ceftriaxone and IV fluids, and has since been admitted for further management. I examined the patient after arrival to the Med/Surg floor. He was awake, alert, and oriented x4. Patient states that he may have been confused earlier in the day. Denies fever prior to arrival in the ED. Denies complaints of chest pain, shortness of breath, cough, chills, abdominal pain, nausea, vomiting, and diarrhea. States he was not aware that he was having hematuria. HOME MEDICATIONS: Prior to Admission Medications Prescriptions Last Dose Informant Patient Reported? Taking? Cephalexin 500 MG Tablet Yes No Sig: Take by mouth. Clozapine 150 MG TABLET DISPERSIBLE Yes No Sig: Take 150 mg by mouth daily. 100 mg in the morning and 50 mg at bedtime LOSARTAN POTASSIUM PO Yes No Sig: Take by mouth. Patient not taking: Reported on 08/30/2023 SITagliptin Phosphate (JANUVIA PO) Yes No Sig: Take by mouth. Patient not taking: Reported on 08/30/2023 acetaminophen (TYLENOL) 325 MG Tablet Yes No Sig: Take 2 Tablets by mouth every 6 hours as needed for Mild or more severe pain. amLODIPine (NORVASC) 10 MG Tablet No No Sig: Take 1 Tablet by mouth daily. finasteride (PROSCAR) 5 MG Tablet No No Sig: Take 1 Tablet by mouth daily. Patient not taking: Reported on 08/30/2023 metoprolol tartrate (LOPRESSOR) 25 MG Tablet No No Sig: Take 1 Tablet by mouth 2 times daily for 90 days. Patient not taking: Reported on 08/30/2023 omeprazole (PriLOSEC) 20 MG CAPSULE DELAYED RELEASE No No Sig: Take 1 Capsule by mouth in the morning and at bedtime. sertraline (ZOLOFT) 50 MG Tablet Yes No Sig: Take 1 Tablet by mouth daily. tamsulosin (FLOMAX) 0.4 MG Capsule No No Sig: Take 1 Capsule by mouth in the morning and at bedtime. Patient not taking: Reported on 08/30/2023 Facility-Administered Medications: None ALLERGIES: Allergies There is no known ICA information for this patient. REVIEW OF SYSTEMS: Review of Systems Neurological: Confusion All other systems reviewed and are negative. PAST MEDICAL HISTORY He has a past medical history of Anxiety, Arthritis, GERD (gastroesophageal reflux disease), Hyperlipidemia, Hypertension, Major depressive disorder, and Schizophrenia (HCC). PAST SURGICAL HISTORY: has a past surgical history that includes no previous surgery. FAMILY HISTORY: family history is not on file. SOCIAL HISTORY : reports that he has quit smoking. His smoking use included cigarettes. He has a 40.00 pack-year smoking history. He has been exposed to tobacco smoke. He has never used smokeless tobacco. He reports that he does not currently use alcohol. He reports that he does not use drugs. PHYSICAL EXAM : VITALS: BP 115/52 Pulse (!) 114 Temp 97.9 ??F (36.6 ??C) (Tympanic) Resp 22 Ht 6' (1.829 m) Wt 190 lb (86.2 kg) SpO2 98% BMI 25.77 kg/m?? Temp (24hrs), Av.3 ??F (37.9 ??C), Min:97.9 ??F (36.6 ??C), Max:103.4 ??F (39.7 ??C) Weight: Wt Readings from Last 1 Encounters: 09/03/23 190 lb (86.2 kg) Body mass index is 25.77 kg/m??. EXAM: Physical Exam Constitutional: General: He is awake. He is not in acute distress. Appearance: Normal appearance. He is not ill-appearing. HENT: Head: Normocephalic and atraumatic. Mouth/Throat: Lips: [place]. Mouth: Mucous membranes are moist. Eyes: General: Lids are normal. Extraocular Movements: Extraocular movements intact. Cardiovascular: Rate and Rhythm: Regular rhythm. Tachycardia present. Heart sounds: Normal heart sounds. Pulmonary: Effort: Pulmonary effort is normal. Breath sounds: Decreased breath sounds present. Abdominal: General: Bowel sounds are decreased. There is distension. Palpations: Abdomen is soft. Tenderness: There is no abdominal tenderness. Genitourinary: Comments: Indwelling catheter draining gross hematuria Musculoskeletal: Cervical back: Normal range of motion and neck supple. Right lower leg: No edema. Left lower leg: No edema. Skin: General: Skin is warm and dry. Neurological: Mental Status: He is alert and oriented to person, place, and time. GCS: GCS eye subscore is 4. GCS verbal subscore is 5. GCS motor subscore is 6. Cranial Nerves: Cranial nerves 2-12 are intact. Psychiatric: Behavior: Behavior is cooperative. DATA REVIEW : CT HEAD OR BRAIN WO CONTRAST Result Date: 09/03/2023 IMPRESSION: No acute intracranial findings. MRI is more sensitive for the detection of acute cerebral ischemia. XR CHEST SINGLE VIEW PORTABLE Result Date: 09/03/2023 IMPRESSION: Focal opacity adjacent to right upper chest wall cardiac lead. Recommend removal and follow-up standard two-view chest radiograph for further evaluation. EKG: UA: Results for orders placed or performed during the hospital encounter of 09/02/23 Urinalysis with Reflex Result Value Ref Range Status SPECIFIC GRAVITY 1.005 1.003 - 1.030 Final URINE PH 7.0 5.0 - 9.0 Final WBC ESTERASE 500 /uL (A) Negative Final NITRITE Positive (A) Negative Final PROTEIN, RANDOM URINE 500 mg/dL (A) Negative Final URINE GLUCOSE, QUAL Negative Negative Final URINE KETONES Negative Negative Final UROBILINOGEN Normal Normal mg/dL Final URINE BLOOD 250 /uL (A) Negative yoni/ul Final URINALYSIS COLOR Red Final URINALYSIS CLARITY Bloody Final WBC (Urine) Negative Negative, 0-5 /hpf Final URINE RBC'S Packed (A) Negative, 0-2 /hpf Final EPITHELIAL CELLS Negative /lpf Final BACTERIA, URINE Negative Negative /hpf Final Results for orders placed or performed in visit on 08/24/23 CULTURE, URINE Specimen: Urine Bladder; Culture Result Value Ref Range Status CULTURE RESULTS Final MIXED GROWTH OF ONE OR MORE DISTAL URETHRAL CONTAMINANTS CBC: Lab Results Component Value Date WBC 19.13 (H) 09/03/2023 RBC 3.66 (L) 09/03/2023 HEMOGLOBIN 10.7 (L) 09/03/2023 HEMATOCRIT 33.9 (L) 09/03/2023 PLATELETCNT 66 (L) 09/03/2023 CMP: Lab Results Component Value Date SODIUM 137 09/03/2023 POTASSIUM 3.9 09/03/2023 CHLORIDE 104 09/03/2023 CO2VEN 22 09/03/2023 ANIONGAP 14.9 09/03/2023 GLUCOSE 113 (H) 09/03/2023 BUN 11 09/03/2023 CREATININE 0.77 09/03/2023 BCRATIO8 14 09/03/2023 TOTALPROTEIN 7.1 09/03/2023 ALBUMIN 4.0 09/03/2023 AGRATIO 1.3 03/15/2023 CALCIUM 8.3 (L) 09/03/2023 TBIL 0.5 09/03/2023 SGPTALT 14 09/03/2023 ALKALINEPHO 78 09/03/2023 GFRNA >60 09/03/2023 GFRA >60 09/03/2023 Coagulation: Lab Results Component Value Date PTP 17.7 (H) 08/18/2023 INR 1.4 (H) 08/18/2023 PTT 33 08/18/2023 Cardiac markers: No results found for: CPK , CPKI , CKMB , CKMBNI , CKMBPOCT , CKMBRELINDX , TROPONINI , POCTRP ABGs: Lab Results Component Value Date PHARTERIAL 7.43 07/30/2023 [id number] 34 (L) 07/30/2023 PO2ART 76 07/30/2023 O2ART 92 (L) 07/30/2023 Mg: No results found for: MAGNESIUM BNP: No results found for: NTPROBNP Thyroid: No results found for: TSH , T4FREE Anti-Epileptics: No results found for: DILANTIN , ADJUSTEDDILA , PHENOBARBITA , VALP2 , VALPROICACTT , CARBAM , LAMI1 , ETHO1 , FEL1 , GABAPENTIN , LEVET1 , PRPH1 , TOPAR1 , ZONI1 , CLONS1 , OXCAM1 Rheumatology: Lab Results Component Value Date ESR 23 (H) 03/15/2023 Calcium-Ionized: No results found for: CALCIUMIONIZ Outside reports reviewed: ER records, radiology reports, lab reports, xray reports, historical medical records. ASSESSMENT: Active Hospital Problems Diagnosis Date Noted ??? Sepsis (HCC) 09/03/2023 ??? Gross hematuria 09/03/2023 ??? History of urinary retention 09/03/2023 ??? Catheter-associated urinary tract infection 09/03/2023 ??? Paroxysmal atrial fibrillation (HCC) 08/14/2023 ??? Anemia ??? Thrombocytopenia (HCC) 02/02/2023 ??? Chronic undifferentiated schizophrenia (HCC) 07/17/2020 ??? Essential hypertension, benign 07/17/2020 ??? GERD without esophagitis 07/17/2020 ??? Mixed hyperlipidemia 07/17/2020 Resolved Hospital Problems No resolved problems to display. PLAN: Sepsis -Meets criteria based on leukocytosis, fever, tachycardia, and tachypnea. POA. -Source: likely UTI. -WBC 19.8. -Lactate 2.4 -> 1.3. -Started on IV ceftriaxone. -IVF. -Blood and urine cx pending. -Telemetry monitoring. -Monitor CBC. Concern for catheter associated urinary tract infection Gross hematuria Hx of urinary retention -UA positive for blood, packed RBCs, nitrites, and 500 leukocyte esterase, however there was no bacteria or WBCs present. -CT scan showed marked prostatomegaly, markedly distended urinary bladder with mild right pelvicaliectasis and mild bilateral hydroureter compatible with bladder outlet obstruction. Barakat catheter was noted to terminate in the patient's urethra. -Existing barakat catheter removed with large amount of spontaneous urine output. New barakat catheter placed with 350 ml of urine initially blood tinged, now clearing. -New urine specimen sent for repeat UA. -Continue IV ceftriaxone. -Urology consulted, pending recommendations. -Strict I/Os. Thrombocytopenia -Platelets 94. -Previous platelets 43. -Monitor CBC. Anemia -H/H 11/35. -Previous H/H 10.3/32.1, however baseline Hgb 12-13. -Monitor H/H/ -Transfuse for Hgb <7. Paroxysmal atrial fibrillation- currently sinus tachycardia, rate 110s. Previously taken off of Xarelto due to thrombocytopenia. Home medications pending verification by RN. Hypertension- resume home medications as appropriate once verified by RN. Hyperlipidemia- resume home medications as appropriate once verified by RN. GERD- resume home medications as appropriate once verified by RN. History of CVA- resume home medications as appropriate once verified by RN. Schizophrenia/Anxiety/Depression- resume home medications as appropriate once verified by RN. Home meds to be resumed as appropriate. Other changes to meds to be made based on progress during hospitalization. Code Status: CPR-Full Treatment DVT Prophylaxis: Sequential Compression Devices Consult with: Urology Advance Care Planning: Aggregate face to face time discussing end of life advance care planning with patient and/or family and/or Power of Cloth Cutting Inspector approximately 16 minutes. Discussed CPR/Intubation/Treatment Goals/Quality of life/Intensity of Care. Patient desires: CPR-Full Treatment Maricarmen Alvarez APRN, ETHICS INSTRUCTOR 09/03/2023 7:05 AM MEDICINE ASSISTANT Primary Care Physician: Irving Jeffries MD Cosigned by Uri Ny MD at 09/03/2023 11:27 AM MEDICINE ASSISTANT CINE ASSISTANT CINE ASSISTANT Associated attestation - Uri Ny MD - 09/03/2023 11:27 AM MEDICINE ASSISTANT I have seen and have examined the patient as part of a split/shared visit with the ILIANA on 09/03/2023 and have reviewed and confirmed all history, exam, and medical decision making elements documented, with additions/changes as noted. I have performed the substantive portion of the visit as follows: Total time spent on this encounter on 09/03/2023, including pre-visit review of separately obtainedhistory, [id number] interaction performing medically appropriate physical exam, patient counseling/education, interpretation of diagnostic results, care coordination and documentation was 35 minutes. This time is distinctly separate from services billed separately. documented in this encounter Consult Notes * Grace Frey MD - 09/04/2023 11:49 AM CST INFECTIOUS DISEASE CONSULT Iván Dumont was admitted on 09/02/2023. I was asked to see the patient and provide recommendations for management of fever. HPI Patient is a 77-year-old male with multiple medical problems including a history of CVA, hypertension, schizophrenia was admitted to the hospital on 09/02 after he was found to have a change in mental status. Patient also was having some blood coming out of his urine. Patient was [facility]/07 and had a Barakat catheter placed at that time for urinary retention. In the emergency room the patient had a WBC of 19.8 with a temperature of 103??. Patient did have a set of blood cultures done which were negative. He also underwent a CT scan of the chest abdomen andpelvis which showed a marked prostatomegaly, markedly distended urinary bladder and possible bladder outlet obstruction. Patient was seen by Urology and recommend continuing to have the Barakat in place. He was started on ceftriaxone and we are being asked to this patient for antibiotic management. INPATIENT MEDS: cefTRIAXone (ROCEPHIN) IV/IM, 2 g, Q24H acetaminophen, 650 mg, Q4H PRN Or acetaminophen, 650 mg, Q4H PRN magnesium hydroxide, 30 mL, Daily PRN melatonin, 6 mg, Nightly PRN polyethylene glycol, 17 g, BID PRN Prochlorperazine Edisylate, 5 mg, Q6H PRN senna, 1 Tablet, BID PRN ALLERGIES: Allergies There is no known ICA information for this patient. REVIEW OF SYSTEMS: All Review of Systems obtained, and is negative other than that mentioned in the History of PresentIllness. PAST MEDICAL HISTORY has a past medical history of Anxiety, Arthritis, GERD (gastroesophageal reflux disease), Hyperlipidemia, Hypertension, Major depressive disorder, and Schizophrenia (HCC). PAST SURGICAL HISTORY: has a past surgical history that includes no previous surgery. FAMILY HISTORY: family history is not on file. SOCIAL HISTORY : reports that he has quit smoking. His smoking use included cigarettes. He has a 40.00 pack-year smoking history. He has been exposed to tobacco smoke. He has never used smokeless tobacco. He reports that he does not currently use alcohol. He reports that he does not use drugs. PHYSICAL EXAM : VITALS: Vitals: 09/03/23 2019 09/04/23 0453 09/04/23 0745 09/04/23 0820 BP: 111/41 110/59 112/61 Pulse: 74 (!) 114 100 Resp: 20 18 20 Temp: 99.9 ??F (37.7 ??C) 99.7 ??F (37.6 ??C) 97.2 ??F (36.2 ??C) TempSrc: Tympanic Tympanic SpO2: 98% 99% 97% 97% Weight: Height: General: alert, oriented and in no acute distress. Skin: normal coloration and turgor, no rashes, no suspicious skin lesions noted. HEENT: normocephalic, atraumatic. Pupils equal, round and reactive to light. Extraocular movements intact. [place]opharynx pink and moist. Neck: No JVD, No mass or lymphadenopathy. CVS: normal rate, regular rhythm, normal S1, S2, no murmurs, rubs, RRR, S1/S2 normal Chest: clear to auscultation,no wheezes, rales or rhonchi, symmetric air entry and normal respiratory effort. Abdominal: soft, nontender, nondistended. Positive Bowel sounds, no organomegaly appreciated. Extremities: peripheral pulses normal, no pedal edema, Neuro: alert, oriented, normal speech, no focal findings or movement disorder noted, cranial nervesII through XII intact, DTR's normal and symmetric, motor and sensory grossly normal bilaterally, DATA REVIEW : CBC: Lab Results Component Value Date WBC 16.40 (H) 09/04/2023 HEMOGLOBIN 10.7 (L) 09/04/2023 HEMATOCRIT 33.5 (L) 09/04/2023 PLATELETCNT 55 (L) 09/04/2023 Lab Results Component Value Date SODIUM 137 09/04/2023 POTASSIUM 3.6 09/04/2023 CHLORIDE 107 09/04/2023 CO2VEN 22 09/04/2023 GLUCOSE 101 (H) 09/04/2023 ANIONGAP 11.6 09/04/2023 BUN 11 09/04/2023 CREATININE 0.70 09/04/2023 CALCIUM 8.4 (L) 09/04/2023 No results found for: CRP No results found. Cultures 09/03 blood cultures negative 08/24 urine culture with mixed growth 09/03 urine cultures growing out Pseudomonas aeruginosa / CT of the chest abdomen and pelvis with contrast No focal pneumonic consolidation. ??Unchanged, lingular opacity, likely atelectasis. ??Interval resolution of bilateral pleural effusions. ??Marked prostatomegaly markedly distended urinary bladder with mild right pelvicaliectasis and mild bilateral hydroureter. These findings are most compatible with bladder outlet obstruction. ?? Recommend clinical correlation with serum PSA levels for further evaluation. ??Massively distended urinary bladder with a Barakat catheter terminating in the patient's urethra. ??Recommend removal or repositioning as clinically warranted. ?Enlarged periportal lymph node measures 2.2 cm slightly increased compared to prior 07/29/2023. ??Recommend follow-up abdomen pelvis CT with intravenous contrast in 3 months to document stability. ??Cholelithiasis without evidence of acute cholecystitis. ASSESSMENT: 1. UTI secondary to chronic indwelling Barakat catheter 2. fever 3. Prostatomegaly 4. Leukocytosis 5. Schizophrenia PLAN: 1. Change ceftriaxone to cefepime 2. Pseudomonas pending sensitivities will follow 3. Leukocytosis improved 4. Continue supportive care Thank you for this consult. More recommendations will be made as appropriate based on progress during hospitalization. Grace Frey MD 1:49 AM MEDICINE ASSISTANT Primary Care Physician: Irving Jeffries MD CINE ASSISTANT * Ton Ling, KATHLEEN, ETHICS INSTRUCTOR - 09/04/2023 9:20 AM CSTAssociated Order(s): IP CONSULT TO UROLOGY ADULT UROLOGY CONSULT Date of Consult: 09/04/2023 Iván Dumont was admitted by the Hospitalist service on 09/02/2023 for AMS/UTI/Hematuria. I was asked to see the patient and provide recommendations for management of Retention/Hematuria/UTI. HPI This is a 77-year-old male patient who was brought to the hospital with AMS and hematuria. Patient was recently admitted to the hospital with Afib with RVR and RSV. During this admission patient was found to be in urinary retention and had to have a catheter placed. Patient had f/u at our office on08/15/23 for a voiding trial. Patient only voided a small amount in office and elected to leave [address] out. His flomax was increased to bid and was started on Finasteride. Patient returned to the [facility] 08/18 and had to have catheter replaced as he was not urinating. In the ED patient had a CT chesta/p w/ that showed a markedly distended urinary bladder with mild bilateral hydroureter and mild right pelvicaliectasis. Barakat catheter in his urethra. Additionally, also showed bilateral small low attenuation lesions which are likely simple cysts. Catheter was replaced with 350 cc of blood tinged urine. UA was nitrite positive. Urine and blood cultures pending. Fever of 103.4 on admit with tachycardia. Catheter is patent and draining light jesus urine. HOME MEDICATIONS: Prior to Admission Medications Prescriptions Last Dose Informant Patient Reported? Taking? Clozapine 150 MG TABLET DISPERSIBLE 09/02/2023 at 0700 Yes Yes Sig: Take 150 mg by mouth daily. 100 mg in the morning and 50 mg at bedtime acetaminophen (TYLENOL) 325 MG Tablet 09/02/2023 at 0700 Yes Yes Sig: Take 2 Tablets by mouth every 6 hours as needed for Mild or more severe pain. amLODIPine (NORVASC) 10 MG Tablet 09/02/2023 at 0700 No Yes Sig: Take 1 Tablet by mouth daily. docusate sodium (Colace) 100 MG Capsule 09/02/2023 at 1700 Yes Yes Sig: Take 100 mg by mouth 2 times daily. lactulose (CHRONULAC) 10 GM/15ML Solution 09/02/2023 at 0700 Yes Yes Sig: Take 30 mL by mouth daily. omeprazole (PriLOSEC) 20 MG CAPSULE DELAYED RELEASE 09/02/2023 at 0700 No Yes Sig: Take 1 Capsule by mouth in the morning and at bedtime. sertraline (ZOLOFT) 50 MG Tablet 09/02/2023 at 0700 Yes Yes Sig: Take 1 Tablet by mouth daily. Facility-Administered Medications: None ALLERGIES: Allergies There is no known ICA information for this patient. INPATIENT MEDS: cefTRIAXone (ROCEPHIN) IV/IM, 2 g, Q24H acetaminophen, 650 mg, Q4H PRN Or acetaminophen, 650 mg, Q4H PRN magnesium hydroxide, 30 mL, Daily PRN melatonin, 6 mg, Nightly PRN polyethylene glycol, 17 g, BID PRN Prochlorperazine Edisylate, 5 mg, Q6H PRN senna, 1 Tablet, BID PRN REVIEW OF SYSTEMS: All Review of Systems obtained, and is negative other than that mentioned in the History of PresentIllness. PAST MEDICAL HISTORY He has a past medical history of Anxiety, Arthritis, GERD (gastroesophageal reflux disease), Hyperlipidemia, Hypertension, Major depressive disorder, and Schizophrenia (HCC). PAST SURGICAL HISTORY: has a past surgical history that includes no previous surgery. FAMILY HISTORY: family history is not on file. SOCIAL HISTORY : reports that he has quit smoking. His smoking use included cigarettes. He has a 40.00 pack-year smoking history. He has been exposed to tobacco smoke. He has never used smokeless tobacco. He reports that he does not currently use alcohol. He reports that he does not use drugs. PHYSICAL EXAM : VITALS: Patient Vitals for the past 12 hrs: BP Temp Pulse Heart Rate (Monitor) Resp SpO2 Temp src 09/04/23 0820 -- -- -- -- -- 97 % -- 09/04/23 0745 112/61 97.2 ??F (36.2 ??C) 100 -- 20 97 % -- 09/04/23 0701 -- -- -- (!) 110 -- -- -- 09/04/23 0502 -- -- -- 95 -- -- -- 09/04/23 0453 110/59 99.7 ??F (37.6 ??C) (!) 114 -- 18 99 % Tympanic 09/04/23 0300 -- -- -- 96 -- -- -- 09/04/23 0100 -- -- -- (!) 104 -- -- -- 09/03/23 2301 -- -- -- 91 -- -- -- Temp (24hrs), Av.3 ??F (37.4 ??C), Min:97.2 ??F (36.2 ??C), Max:100.5 ??F (38.1 ??C) Weight: Wt Readings from Last 1 Encounters: 09/03/23 190 lb (86.2 kg) General: alert, oriented and in no acute distress. Skin: normal coloration and turgor, no rashes, no suspicious skin lesions noted. HEENT: normocephalic, atraumatic. Pupils equal Neck: No JVD CVS: normal rate Chest:symmetric air entry and normal respiratory effort. Abdominal: soft, nontender, nondistended : cathete draining jesus to yellow urine Extremities: peripheral pulses normal Neuro: alert, oriented, normal speech DATA REVIEW : Clinical Support on 08/24/23 CULTURE, URINE Specimen: Urine Bladder; Culture Result Value Ref Range CULTURE RESULTS MIXED GROWTH OF ONE OR MORE DISTAL URETHRAL CONTAMINANTS CBC: Lab Results Component Value Date WBC 16.40 (H) 09/04/2023 HEMOGLOBIN 10.7 (L) 09/04/2023 HEMATOCRIT 33.5 (L) 09/04/2023 PLATELETCNT 55 (L) 09/04/2023 CMP: Lab Results Component Value Date GLUCOSE 101 (H) 09/04/2023 SODIUM 137 09/04/2023 POTASSIUM 3.6 09/04/2023 CHLORIDE 107 09/04/2023 CO2VEN 22 09/04/2023 BUN 11 09/04/2023 CREATININE 0.70 09/04/2023 CALCIUM 8.4 (L) 09/04/2023 SGPTALT 14 09/03/2023 ALBUMIN 4.0 09/03/2023 ALKALINEPHO 78 09/03/2023 No results found. ASSESSMENT: Active Hospital Problems Diagnosis Date Noted ??? Sepsis (HCC) 09/03/2023 ??? Gross hematuria 09/03/2023 ??? History of urinary retention 09/03/2023 ??? Catheter-associated urinary tract infection 09/03/2023 ??? Paroxysmal atrial fibrillation (HCC) 08/14/2023 ??? Anemia ??? Thrombocytopenia (HCC) 02/02/2023 ??? Chronic undifferentiated schizophrenia (HCC) 07/17/2020 ??? Essential hypertension, benign 07/17/2020 ??? GERD without esophagitis 07/17/2020 ??? Mixed hyperlipidemia 07/17/2020 Resolved Hospital Problems No resolved problems to display. PLAN: -Maintain indwelling catheter at this time to allow for bladder rest and to allow urethra to heal. Gross hematuria has resolved at this time. May irrigate catheter with 30-60 cc of sterile water for any clot obstruction should hematuria return. -Plan to keep catheter in place for 1-2 weeks -Continue Tamsulosin and Finasteride. -continue abx. Tailor to sensitivity when available. -Will need outpatient voiding trial once uti has cleared and has had time for urethra to heal. -If voiding trial fails may benefit from further work-up with UDS and cystoscopy. Thank you for this consult. More recommendations will be made as appropriate based on progress during hospitalization. Documentation for this visit on 09/04/2023 was completed using a template. I have seen and examinedthe patient. Everything documented was personally performed at this visit with the necessary additions, deletions and changes made as appropriate. Ton Ling APRN, YAA 49:20 AM MEDICINE ASSISTANT Primary Care Physician: Irving Jeffries MD Cosigned by Nicolas Contreras MD at 09/04/2023 12:42 PM MEDICINE ASSISTANT CINE ASSISTANT CINE ASSISTANT documented in this encounter ED Notes * Zully Hall RN - 09/03/2023 4:34 AM CST Patient transported to floor. VSS and all belongings at bedside. CINE ASSISTANT * Zully Hall RN - 09/03/2023 3:56 AM CST Pt medicated per provider orders. Pt educated on intended effects and side effects of medication and verbalized understanding, able to provide teach back of education. CINE ASSISTANT * Edmundo Parsons MD - 09/03/2023 3:42 AM CST Sepsis Reassessment of Volume Status and Tissue Perfusion I performed a sepsis re-evaluation and tissue perfusion exam 09/03/2023 at 3:42 AM MEDICINE ASSISTANT. Edmundo Parsons MD CINE ASSISTANT * Andre Fairchild RN - 09/03/2023 2:41 AM CST Report given to Zully WERNER CINE ASSISTANT * Andre Fairchild RN - 09/03/2023 1:30 AM CST Patient is resting in room with call light at bedside. Patient informed about wait time and verbalizes understanding. Patient denies needs at this time and verbalizes understanding that RN will complete hourly rounding. Edmundo Bullock MD - 09/03/2023 1:27 AM CSTAssociated Order(s): Critical Care Chief Complaint Patient presents with ??? Fever ??? Urinary Catheter Problem Blood in urine Patient is 77-year-old male [facility] that was brought to emergency room for altered mental status that it started today. Apparently he was noted that around 3:00 p.m. today he started having some increased confusion. They also noted blood in his Barakat catheter. He had a Barakat put in a bout a month ago when he was ill with the flu and pneumonia and could not get up and down. He was seen short while ago with some hematuria and was on Xarelto that was stopped. He had a temperature 103.4?? on arrival with elevated heart rate so the sepsis trigger was pulled. Current Facility-Administered Medications Medication Dose Route Frequency Provider Last Rate Last Admin ??? acetaminophen (TYLENOL) tablet 650 mg 650 mg Oral Q4H PRN [place], LEAD MECHANICAL ENGINEER, ETHICS INSTRUCTOR Or ??? acetaminophen (TYLENOL) suppository 650 mg 650 mg Rectal Q4H PRN [place], LEAD MECHANICAL ENGINEER, ETHICS INSTRUCTOR ??? cefTRIAXone (ROCEPHIN) injection 2 g 2 g Intravenous Q24H [place], LEAD MECHANICAL ENGINEER, ETHICS INSTRUCTOR ??? magnesium hydroxide (MILK OF MAGNESIA) 400 MG/5ML suspension 30 mL 30 mL Oral Daily PRN [place], LEAD MECHANICAL ENGINEER, ETHICS INSTRUCTOR ??? melatonin tablet 6 mg 6 mg Oral Nightly PRN [place], LEAD MECHANICAL ENGINEER, ETHICS INSTRUCTOR ??? polyethylene glycol (GLYCOLAX, MIRALAX) packet 17 g 17 g Oral BID PRN [place], LEAD MECHANICAL ENGINEER, ETHICS INSTRUCTOR ??? Prochlorperazine Edisylate (COMPAZINE) injection 5 mg 5 mg Intravenous Q6H PRN [place], LEAD MECHANICAL ENGINEER, ETHICS INSTRUCTOR ??? senna (SENOKOT) tablet 8.6 mg 1 Tablet Oral BID PRN [place], LEAD MECHANICAL ENGINEER, ETHICS INSTRUCTOR No Known Allergies Past Medical History Positives Diagnosis Date ??? Anxiety ??? Arthritis ??? GERD (gastroesophageal reflux disease) ??? Hyperlipidemia ??? Hypertension ??? Major depressive disorder ??? Schizophrenia (HCC) No past surgical history on file. Social History Socioeconomic History [...] answer Stress: Patient Unable To Answer (08/14/2023) [facility] [place] [facility] Occupational [employer] - Occupational Stress Questionnaire ??? Feeling of Stress : Patient unable to answer Social Integration: Patient Unable To Answer (08/14/2023) Social Connection and Isolation Panel [NHANES] ??? Frequency of Communication with Friends and Family: Patient unable to answer ??? Frequency of Social Gatherings with Friends and Family: Patient unable to answer ??? Attends Alevism Services: Patient unable to answer ??? Active [...] the Last Year: Patient unable to answer BP 115/52 Pulse (!) 114 Temp 97.9 ??F (36.6 ??C) (Tympanic) Resp 22 Ht 6' (1.829 m) Wt 190 lb (86.2 kg) SpO2 98% BMI 25.77 kg/m?? Review of Systems Constitutional: Positive for fever. Negative for chills. HENT: Negative for congestion, ear pain, rhinorrhea and sore throat. Eyes: Negative for discharge. Respiratory: Negative for cough, chest tightness, shortness of breath and wheezing. Cardiovascular: Negative for chest pain and palpitations. Gastrointestinal: Negative for abdominal pain, diarrhea, nausea and vomiting. Genitourinary: Positive for hematuria. Negative for flank pain and testicular pain. Musculoskeletal: Negative for back pain and myalgias. Skin: Negative for rash and wound. Neurological: Negative for syncope and headaches. Psychiatric/Behavioral: Positive for confusion. All other systems reviewed and are negative. Physical Exam Vitals and nursing note reviewed. Constitutional: General: He is not in acute distress. Appearance: He is well-developed. He is not diaphoretic. HENT: Head: Normocephalic and atraumatic. Right Ear: External ear normal. Left Ear: External ear normal. Nose: Nose normal. Mouth/Throat: Mouth: Mucous membranes are moist. Eyes: Conjunctiva/sclera: Conjunctivae normal. Pupils: Pupils are equal, round, and reactive to light. Neck: Trachea: No tracheal deviation. Cardiovascular: Rate and Rhythm: Normal rate and regular rhythm. Pulses: Normal pulses. Heart sounds: Normal heart sounds. No murmur heard. No friction rub. No gallop. Pulmonary: Effort: Pulmonary effort is normal. No respiratory distress. Breath sounds: Normal breath sounds. No wheezing or rales. Abdominal: General: Bowel sounds are normal. There is no distension. Palpations: Abdomen is soft. Tenderness: There is no abdominal tenderness. There is no guarding or rebound. Musculoskeletal: General: No tenderness or deformity. Normal range of motion. Cervical back: Normal range of motion and neck supple. Lymphadenopathy: Cervical: No cervical adenopathy. Skin: General: Skin is warm and dry. Coloration: Skin is not pale. Findings: No erythema or rash. Neurological: Mental Status: He is alert and oriented to person, place, and time. Mental status is at baseline. Psychiatric: Mood and Affect: Mood normal. Behavior: Behavior normal. Thought Content: Thought content normal. Judgment: Judgment normal. Sepsis Reassessment of Volume Status and Tissue Perfusion BP 115/52 Pulse (!) 114 Temp 97.9 ??F (36.6 ??C) (Tympanic) Resp 22 Ht 6' (1.829 m) Wt 190 lb (86.2 kg) SpO2 98% BMI 25.77 kg/m?? Heart: regular rate and rhythm, S1, S2 normal, no murmur, click, rub or gallop, regular rate and rhythm Lungs: normal air entry Peripheral Perfusion: warm, well perfused, brisk capillary refill Recent Labs Units 09/03/23 0228 09/03/23 0001 LACTICA mmol/L 1.3 2.4* Sepsis re-evaluation was performed. 09/03/2023 at 3:21 AM MEDICINE ASSISTANT. Critical Care Performed by: Edmundo Parsons MD Authorized by: Edmundo Parsons MD Critical care provider statement: Critical care time (minutes): 40 Critical care time was exclusive of: Separately billable procedures and treating other patients Critical care was necessary to treat or prevent imminent or life-threatening deterioration of the following conditions: Sepsis Critical care was time spent personally by me on the following activities: Development of treatmentplan with patient or surrogate, evaluation of patient's response to treatment, examination of patient, obtaining history from patient or surrogate, review of old charts, re-evaluation of patient's condition, pulse oximetry, ordering and review of radiographic studies, ordering and review of laboratory studies and ordering and performing treatments and interventions I assumed direction of critical care for this patient from another provider in my specialty: no Care discussed with: admitting provider Recent Results (from the past 24 hour(s)) CMP (Comprehensive Metabolic Panel) Result Value Ref Range SODIUM 136 136 - 145 mmol/L POTASSIUM 3.8 3.5 - 5.1 mmol/L CHLORIDE 104 98 - 107 mmol/L CO2, VENOUS 22 22 - 30 mmol/L ANION GAP 13.8 <18.0 mmol/L GLUCOSE 124 (H) 70 - 99 mg/dL BUN 13 8 - 26 mg/dL CREATININE, BLOOD 0.87 0.70 - 1.30 mg/dL BUN/CREATININE RATIO 15 12 - 20 ratio TOTAL PROTEIN 7.1 6.3 - 8.2 g/dL ALBUMIN 4.0 3.5 - 5.0 g/dL A/G RATIO 1.3 1.0 - 2.2 CALCIUM 9.0 8.7 - 10.5 mg/dL T BILI 0.5 0.2 - 1.2 mg/dL SGOT (AST) 13 5 - 34 U/L SGPT (ALT) 14 0 - 55 U/L ALKALINE PHOSPHATASE 78 40 - 150 U/L GFR, ESTIMATED >60 >=60 GFR, EST. >60 >=60 GFR, EST. NONAFRICAN >60 >=60 Lactic Acid (Lactate) Result Value Ref Range LACTIC ACID 2.4 (H) 0.7 - 2.0 mmol/L CBC with Auto Differential Result Value Ref Range WBC 19.81 (H) 4.00 - 12.00 10(3)/mcL RBC 3.79 (L) 4.40 - 5.80 10(6)/mcL HEMOGLOBIN (HGB) 11.0 (L) 13.0 - 16.5 g/dL HEMATOCRIT (HCT) 34.7 (L) 38.0 - 50.0 % MCV 91.6 82.0 - 96.0 fL MCH 29.0 26.0 - 32.0 pg MCHC 31.7 31.0 - 36.0 g/dL PLATELET COUNT 94 (L) 140 - 440 10(3)/mcL RDW 14.6 11.8 - 15.5 % MPV 14.1 (H) 8.0 - 12.6 fL NEUTROPHILS 81.5 (H) 40.0 - 68.0 % LYMPHOCYTES 3.7 (L) 19.0 - 49.0 % MONOCYTES 14.5 (H) 3.0 - 13.0 % EOSINOPHILS 0.1 0.0 - 8.0 % BASOPHILS 0.2 0.0 - 1.0 % ABSOLUTE NEUTROPHILS 16.13 (H) 1.40 - 5.30 10(3)/mcL ABSOLUTE LYMPHOCYTES 0.74 (L) 0.90 - 3.30 10(3)/mcL ABSOLUTE MONOCYTES 2.88 (H) 0.10 - 0.90 10(3)/mcL ABSOLUTE EOSINOPHIL 0.02 0.00 - 0.50 10(3)/mcL ABSOLUTE BASOPHILS 0.04 0.00 - 0.10 10(3)/mcL NRBC PER 100 WBC 0 RESULTS ARE CONSISTENT WITH PERIPHERAL SMEAR REVIEW Yes LARGE PLATELETS 1+ RSV,SARS-COV-2,INFLUENZA A&B BY PCR Specimen: Nasal Washing; Swab Result Value Ref Range FLU A Negative Negative, Error FLU B Negative Negative RESP SYNC VIRUS Negative Negative SARSCOV2 NOT DETECTED (Reference Range for this test is Not Detected) Urinalysis with Reflex Result Value Ref Range SPECIFIC GRAVITY 1.005 1.003 - 1.030 URINE PH 7.0 5.0 - 9.0 WBC ESTERASE 500 /uL (A) Negative NITRITE Positive (A) Negative PROTEIN, RANDOM URINE 500 mg/dL (A) Negative URINE GLUCOSE, QUAL Negative Negative URINE KETONES Negative Negative UROBILINOGEN Normal Normal mg/dL URINE BLOOD 250 /uL (A) Negative yoni/ul URINALYSIS COLOR Red URINALYSIS CLARITY Bloody WBC (Urine) Negative Negative, 0-5 /hpf URINE RBC'S Packed (A) Negative, 0-2 /hpf EPITHELIAL CELLS Negative /lpf BACTERIA, URINE Negative Negative /hpf Lactic Acid (Lactate) Result Value Ref Range LACTIC ACID 1.3 0.7 - 2.0 mmol/L Imaging Results CT CHEST ABDOMEN AND PELVIS W CONTRAST (In process) Result time 09/03/23 04:50:41 CT ABDOMEN PELVIS W/ CONTRAST (Canceled) CT HEAD OR BRAIN WO CONTRAST (Final result) Result time 09/03/23 02:21:00 Final result by Mario Alberto Hawthorne MD (09/03/23 02:21:00) Impression: IMPRESSION: No acute intracranial findings. MRI is more sensitive for the detection of acute cerebral ischemia. Narrative: EXAM DESCRIPTION: CT HEAD OR BRAIN WO CONTRAST REASON FOR STUDY: Altered mental status TECHNIQUE: Axial images acquired through the brain without intravenous contrast. Images stored on PACS. Automated exposure control was used as a dose optimization technique for this examination. COMPARISON: 01/05/2023 FINDINGS: BRAIN: No acute intracranial hemorrhage. Ventricles are normal in size and morphology. No midline shift or mass effect. Palacios-white matter differentiation is normal. Nonspecific, periventricular white matter low attenuation, likely small-vessel ischemic disease. CALVARIUM: No fracture. SINUSES/MASTOIDS: No fluid or mucosal thickening. ORBITS: No significant abnormality. OTHER: No other significant abnormality. THIS IS AN ELECTRONICALLY VERIFIED FINAL REPORT 09/03/2023 2:18 AM - Electronically signed by Mario Alberto Hawthorne M.D. BB: ALANNA Report ID: [id number] Reading Location: [id number] XR CHEST SINGLE VIEW PORTABLE (Final result) Result time 09/03/23 02:02:57 Final result by Mario Alberto Hawthorne MD (09/03/23 02:02:57) Impression: IMPRESSION: Focal opacity adjacent to right upper chest wall cardiac lead. Recommend removal and follow-up standard two-view chest radiograph for further evaluation. Narrative: EXAM DESCRIPTION: XR CHEST SINGLE VIEW PORTABLE REASON FOR STUDY: ALTEREDD LOC; friend from [facility] where patient lives. Friend states that [facility] him because patient has had increased confusion since 1500 today and blood in his barakat catheter. TECHNIQUE: Single portable radiographic view(s) of the chest. COMPARISON: 08/02/2023 FINDINGS: Interpretation and evaluation is limited due to image quality. LUNGS: Focal opacity adjacent to right upper chest wall cardiac lead. No focal pneumonic consolidation, pleural effusion, or pneumothorax. HEART/MEDIASTINUM: Cardiac silhouette normal in size. Mediastinal and hilar contours appear normal. LINES/TUBES: None. BONES: No acute osseous abnormality. THIS IS AN ELECTRONICALLY VERIFIED FINAL REPORT 09/03/2023 2:00 AM - Electronically signed by Mario Alberto Hawthorne M.D. BB: ALANNA Report ID: [id number] Reading Location: [id number] Medical Decision Making Amount and/or Complexity of Data Reviewed Labs: ordered. Decision-making details documented in ED Course. Radiology: ordered. Decision-making details documented in ED Course. ECG/medicine tests: ordered. Decision-making details documented in ED Course. ECG Report Name: Iván Dumont Age: 77 y.o. Gender: male Time:0202 Rate: 111 Rhythm: Sinus tachycardia Other Findings: Premature atrial complexes, nonspecific ST changes, normal axis, no ST elevation Clinical Impression 1. Sepsis (HCC) 2. Urinary tract infection Disposition: Admit Patient presents emergency room with altered mental status. At temperature of 103.4?? along with tachycardia meeting sepsis criteria. Uncertain etiology of this but his urine did show signs of infection even though the white blood cells were reported along with positive leukocyte esterase and positive nitrite. Respiratory swabs were all negative. CMP unremarkable. White count was elevated at 19.81 with a left shift. Chest x-ray revealed no acute findings and CT of the head revealed no acute intracranial findings. I went over all these test results with the patient and recommended admission for what appears to be sepsis most likely related to his urinary tract infection. He received Rocephin2 g IV piggyback in the ER. He also received IV fluids at 30 milliliters/kilogram. I spoke to Maricarmen Alvarez, mid-level hospitalist for Dr. Ny. She accepts the patient for full admission. CINE ASSISTANT * Andre Fairchild RN - 09/03/2023 12:30 AM CST Pt medicated per provider orders. Pt educated on intended effects and side effects of medication and verbalized understanding, able to provide teach back of education. CINE ASSISTANT * Andre Fairchild RN - 09/03/2023 12:12 AM CST Pt medicated per provider orders. Pt educated on intended effects and side effects of medication and verbalized understanding, able to provide teach back of education. CINE ASSISTANT * Anastasiya Manrique RN - 09/02/2023 11:44 PM CST Patient presents to ED room 7 via wheelchair with friend from [facility] where patient lives. Friend states that the staff [facility] called him because patient has had increased confusion since 1500 today and blood in his barakat catheter. Patient is alert and oriented x4, but forgetful. Friend states that patient had a barakat place about 1 month ago because he had RSV and pneumonia, and was not able to get up to the bathroom. Patient denies any pain presently. Respirations non labored. Sepsis protocol initiated. CINE ASSISTANT documented in this encounter Miscellaneous Notes * Interdisciplinary - Sam Argueta - 09/05/2023 3:08 PM CST Math Instructor - Transition Arrangements Coordinated Note - Transition Specialists do not coordinate all transitions or aspects of transitions- CONFIRM PATIENT READINESS WITH CLAY BURNER PRIOR TO DISCHARGE Burlapper notified: yes, notified Ariane at the following time 1508 via [place]. Additional Details of Discharge Plan: [facility] will be in contact with patient/family in regards to start of care date and time. Home Health - coordination complete with [facility] (Home Health Agency) Updates for Iván Thornton ???s discharge sent to agencies and agency personnel notified: yes, notifiedperla at the following time 1507 via 2d2c. Home Agency added to/ verified on patient's [facility] Care Team? Agency does not have a Direct Messaging Digital Address Agency is [facility] Follow-Up Appointment Information: Readmission risk level (if calculated) is: 3-Medium High (Note: TS makes the PRIMARY Hospital Follow Up appointment for Medium-High, High Risk and Heart Failure patients ONLY) Appointment(s) scheduled: with Ame Scanlon APRN, CNP on 09/11/2023 at 1000 CINE ASSISTANT * Interdisciplinary - Sam Argueta - 09/05/2023 3:08 PM CST Math Instructor Coordination Note SUMMARY - Math Instructor currently working the potential transition plan(s): ??? 09/03/2023 @ 8:00 AM MEDICINE ASSISTANT (CAR, TS) Home Health [BALLOON MAKER] (See detail within the referral type(s) below for information on what is needed to complete coordination Note - the Transition Specialists do not coordinate all transition types - please direct all question regarding hospital transition to the Burlapper) Readmission risk level (if calculated) is: 3-Medium High Primary Care Provider: PCP: Irving Jeffries MD Primary Medical Coverage: Medicaid [place] Secondary Medical Coverage: N/A Hospital Follow-Up appointment(s) scheduling status: ??? Appointment(s) scheduled: with Ame Scanlon APRN ETHICS INSTRUCTOR on 09/11/2023 at 1000 Home Health Referral Status: coordination complete Referral Type: Resumption Certification period for current home health episode will end on the following date: 10/07/23 Provider who will sign on-going Home Health Plan of Care: PCP: Irving Jeffries MD Home Health Services Needed: retirement, physical therapy, occupational therapy Needed Information / Documentation to complete Home Health coordination: ??? None [facility] - ACCEPTED & SELECTED - coordination complete Contact is [facility] ??? 09/05/2023 @ 3:07 PM MEDICINE ASSISTANT (DWB, TS) Home Health order placed as discharge to Home with Home Health services ??? 09/05/2023 @ 2:24 PM MEDICINE ASSISTANT (DWB, TS) Notified agency via inbasket the patient is to discharge today. ??? 09/03/2023 @ 1:40 PM MEDICINE ASSISTANT (CAR, TS) TS was updated by LUIGI Quevedo via message routing that patients BRIONNA: 1-2 days. Update [facility] via In Basket. HHC order is needed. ??? 09/03/2023 @ 8:00 AM MEDICINE ASSISTANT (CAR, TS) Updated [facility] that patient was admitted to [facility] today 09/03.TS will continue to follow for DC needs. CINE ASSISTANT CINE ASSISTANT CINE ASSISTANT * Interdisciplinary - Caity Mckeon RN - 09/05/2023 3:07 PM CST Pt taken by wheel chair to main entrance to [facility] vehicle. CINE ASSISTANT * Interdisciplinary - Lexi George RN - 09/05/2023 2:33 PM CST Educated the patient on barakat care with teach back method. Patient given barakat care wipes to take home. CINE ASSISTANT * Tena - Caity Mckeon RN - 09/05/2023 1:24 PM CST Educated pt with AVS present. Spoke to Lenora at [facility] also. IV and tele removed. Facility will be here at 3. CINE ASSISTANT * Tena - Ariane Mccartney - 09/05/2023 1:03 PM CST Case Management Discharge Readiness Note Iván Thornton 's readmission risk level (if calculated) is: 3-Medium High Patient Class: Inpatient Consecutive Inpatient Midnights 2 Actual day(s) of hospital stay (compare to working DRG): 2 Discharge: Final home discharge arrangements: home with Home Health Mode of transportation at discharge:: Family car Additional Information regarding DC Plan: N/A Discharge Plan Notification/ Verification 1. Patient's Phone numbers: [phone] (home) 2. Patient's preferred discharge phone number for follow up appointments, etc: (if different from above): N/A 3. Information for bedside nurse to call report and fax PACT Document in Sticky Note?: Not applicable - no external home care agencies or hemodialysis 4. Nursing notified: YES Caity 5. Patient/ Decision Maker and family notified: Iván Thornton 6. Family/ Caregiver's readiness, willingness and ability to support patient with anticipated community discharge plan: Spoke with family/caregiver(s) (Terri Keith), who is/are agreeable to anticipated discharge plan. No concerns expressed. IM Letter Documentation, if applicable N/A - Payor is not Medicare Decision Maker / Caregiver Information Medical Decision Maker Assessment: Patient is medical decision-maker Field Associate/Extension Service Advisor Name: [facility] CINE ASSISTANT * Interdisciplinary - Sr. Daniela Horton - 09/05/2023 10:52 AM MEDICINE ASSISTANT Patient is a very sweet man. I asked about his family and how he was doing and happily accepted my offer to say a prayer. CINE ASSISTANT * Interdisciplinary - Rae Calzada - 09/05/2023 9:29 AM CST Math Instructor Coordination Note SUMMARY - Math Instructor currently working the potential transition plan(s): ??? 09/03/2023 @ 8:00 AM MEDICINE ASSISTANT (RODNEY TS) Home Health [BALLOON MAKER] (See detail within the referral type(s) below for information on what is needed to complete coordination Note - the Transition Specialists do not coordinate all transition types - please direct all question regarding hospital transition to the Burlapper) Readmission risk level (if calculated) is: 3-Medium High Primary Care Provider: PCP: Irving Jeffries MD Primary Medical Coverage: Medicaid [place] Secondary Medical Coverage: N/A Hospital Follow-Up appointment(s) scheduling status: ??? N/A - Readmission risk level NOT high, medium-high, OR principle problem is NOT heart failure or COVID Home Health Referral Status: following Referral Type: Resumption Certification period for current home health episode will end on the following date: 10/07/23 Provider who will sign on-going Home Health Plan of Care: PCP: Irving Jeffries MD Home Health Services Needed: retirement, physical therapy, occupational therapy Needed Information / Documentation to complete Home Health coordination: ??? IP Consult to Home Health with comment resume services ??? Confirmed Discharge Date [facility] - ACCEPTED - pending orders [facility] ??? 09/03/2023 @ 1:40 PM MEDICINE ASSISTANT (CAR, TS) TS was updated by LUIGI Quevedo via message routing that patients BRIONNA: 1-2 days. Update [facility] via In Basket. HHC order is needed. ??? 09/03/2023 @ 8:00 AM MEDICINE ASSISTANT (CAR, TS) Updated [facility] that patient was admitted to [facility] today 09/03.TS will continue to follow for DC needs. CINE ASSISTANT * Interdisciplinary - Lana Rojas - 09/05/2023 3:45 AM CST Patient converted to aflutter; RN notified. CINE ASSISTANT * Interdisciplinary - Quynh Chavez - 09/04/2023 10:37 PM CST Floor informed of patient converting into NSR CINE ASSISTANT * Interdisciplinary - Tessa Smith - 09/04/2023 10:04 PM CST Pt is resting in bed. Tele is in place. Barakat is patent. No signs of acute distress noted at this time. Pt is to receive IV abx per MAR later this shift. Safety and fall precautions remain in place. Alarms active. Call light is within reach. CINE ASSISTANT * Plan of Care - Ameena Ambrocio RN - 09/04/2023 6:14 PM CST Problem: Adult Inpatient Plan of Care Goal: Plan of Care Review Flowsheets (Taken 09/03/2023 0937) Plan of Care Reviewed With: patient Today's Goal: remain afebrile this shift Outcome Evaluation: Pt resting in bed alarms activated and audible. pt afebrile this am. barakat in place draining tea colored urine Problem: Fall Injury Risk Goal: Absence of Fall and Fall-Related Injury Intervention: Identify and Manage Contributors Flowsheets (Taken 09/04/2023 0829) Medication Review/Management: medications reviewed Intervention: Promote Injury-Free Environment Flowsheets (Taken 09/04/2023 0829) Safety Promotion/Fall Prevention: nonskid shoes/slippers when out of bed bed alarm chair alarm CINE ASSISTANT * Interdisciplinary - Ariane Mccartney - 09/04/2023 2:30 PM CST Case Management Patient / Patient Budder Contact Note Iván lennon readmission risk level (if calculated) is: 3-Medium High Patient Class: Inpatient Consecutive Inpatient Midnights 1 Actual day(s) of hospital stay (compare to working DRG):1 New Consult for Case Management? No Summary: Patient discharge plan is to discharge to [facility]. Plan of Care:(Problem/ situation/ barrier + goals/ milestones + interventions + evaluation of progress = Plan of Care) Iván Thornton 's primary medical problem this hospitalization is Sepsis (HCC). Hospital Plan:pending blood cultures and Rocephin. ID following Anticipated Discharge Plan: Home Health (HH) Family/ Caregiver's readiness, willingness and ability to support patient with anticipated community discharge plan: Did not speak with family/caregiver during this contact. IM Letter Documentation, if applicable N/A - Payor is not Medicare Decision Maker / Blast Furnace Keeper Helper Information Medical Decision Maker Assessment: Patient is medical decision-maker Field Associate/Extension Service Advisor Name: [facility] No new referrals for Math Instructor at this time. CINE ASSISTANT * Interdisciplinary - Ameena Ambrocio RN - 09/04/2023 9:13 AM CST Jocelyn from [facility] called for updates, updates provided. CINE ASSISTANT * Interdisciplinary - Cristina Green RD - 09/04/2023 5:40 AM CST Duplication of cardiac diet order reconciled to cardiac diet only. CINE ASSISTANT * Tena - Tessa Smith - 09/03/2023 9:06 PM CST Pt is resting in bed. Tele is in place. Barakat is patent and draining tea colored urine. No signs ofacute distress noted at this time. Pt has received IVP abx per SEP. Safety and fall precautions remain in place. Alarms are active. Call light is within reach. CINE ASSISTANT * Tena - Jarred Edmond - 09/03/2023 1:41 PM CST Math Instructor Coordination Note SUMMARY - Math Instructor currently working the potential transition plan(s): ??? 09/03/2023 @ 8:00 AM MEDICINE ASSISTANT (RODNEY TS) Home Health [[facility]] (See detail within the referral type(s) below for information on what is needed to complete coordination Note - the Transition Specialists do not coordinate all transition types - please direct all question regarding hospital transition to the Burlapper) Readmission risk level (if calculated) is: 0-Remove Primary Care Provider: PCP: Irving Jeffries MD Primary Medical Coverage: Medicare Part B Secondary Medical Coverage: Medicaid [facility] Follow-Up appointment(s) scheduling status: ??? N/A - Readmission risk level NOT high, medium-high, OR principle problem is NOT heart failure or COVID Home Health Referral Status: following Referral Type: Resumption Certification period for current home health episode will end on the following date: 10/07/23 Provider who will sign on-going Home Health Plan of Care: PCP: Irving Jeffries MD Home Health Services Needed: Needed Information / Documentation to complete Home Health coordination: ??? IP Consult to Home Health with comment resume services ??? Confirmed Discharge Date [facility] - ACCEPTED - pending orders [facility] ??? 09/03/2023 @ 1:40 PM MEDICINE ASSISTANT (CAR, TS) TS was updated by LUIGI Quevedo via message routing that patients BRIONNA: 1-2 days. Update [facility] via In Basket. HHC order is needed. ??? 09/03/2023 @ 8:00 AM MEDICINE ASSISTANT (CAR, TS) Updated [facility] that patient was admitted to [facility] today 09/03.TS will continue to follow for DC needs. CINE ASSISTANT CINE ASSISTANT * Plan of Care - Emy Canales - 09/03/2023 1:07 PM CST Case Management Comprehensive Assessment Iván Thornton 's readmission risk level (if calculated) is: 0-Remove Patient Class: Inpatient Consecutive Inpatient Midnights 0 Actual day(s) of hospital stay (compare to working DRG): 1 Reason for BurlapperAntenna Specialist: Re-hospitalization Iván Thornton is in the hospital due to: Sepsis Prior to Admission (Support, Living Environment,ADLs IADLs, Transportation, Employment, Access to Care) Patient came to this hospital from: [facility] Other (explain type of facility in comment) ([facility]) Patient is alert and oriented x3. Norberto is a 77 year old, , male. Patient lives in an apartment at [facility]. Patient is independent with ADL's, meals, cleaning, and laundry. Terri Keith (personal care home administrator) provides transportation and medication assistance. Patient reports not using DME. Patient is established with PCP Irving Jeffries MD and last saw 08/28/23. Patient has Medicare and Medicaid without difficulty obtaining medications. Patient does not have advanced directives. Addressand phone confirmed. Patient is current with the following home health agency: [facility] nursing, physical therapy, occupational therapy Iván Thornton is a 30 day re-hospitalization Index hospitalization dates: 07/28/24-08/07/23 Index hospitalization principle problem: Acute respiratory failure with hypoxia Index Hospitalization Discharge disposition and services (ie., home health, SNF, equipment - include the names of the agency and services / equipment provided by agency ): [facility] Did patient declines services on index hospitalization?: No Iván Thornton /family's account of events from index hospital discharge leading to current hospitalization: Patient returned home with [facility] services active. HH RN called PCP for gross hematuria on 08/09/23 and was sent to ER for evaluation. Patient followed up with PCP on 08/14/23. HH RN sent patient to ER on 08/18/23 due urinating blood. Patient followed up with PCP on 08/28/23, Hematology 08/29/23, and Cardiology 08/30/23. Patient had continued blood in urine, so came to ER for further evaluation. Plan of Care (Problem/ situation/ barrier + goals/ milestones + interventions + evaluation of progress = Plan of Care) Hospital Plan: urine culture pending, IV rocephin, ID and Urology consults pending Anticipated Discharge Plan: Home Health () 09/03/23 Patient/ patient dealer compliance representative's preferences regarding the discharge plan: Return home with home health resuming Family/ Caregiver's readiness, willingness and ability to support patient with anticipated community discharge plan: Did not speak with family/caregiver during this contact. SUMMARY (summary of interaction with patient/decision maker, family and interdisciplinary team) Met with Iván Thornton and introduced self and role and discussed plan of care. Patient plans to return home to [facility] with his home health resuming. Denies any additional needs at this time. IM Letter Documentation, if applicable Medicare Notice Given to Responsible Libertarian: Yes, in person Date Form Given to Patient/Responsible Libertarian: 09/03/23 Decision Maker / Blast Furnace Keeper Helper Information Patient is medical decision-maker Field Associate/Extension Service Advisor Name: [facility] New referral(s) for Math Instructor Home Health Agency [[facility]] Agency Choice(s) ??? [facility] List of Medicare approved HH agencies with quality measures and resource data, serving the patient's geographic area (with any financial affiliations disclosed and/ or in network providers identifiedas applicable) provided to patient / family: N/A - Current with Home Health Resumption of services with current agency CINE ASSISTANT * Interdisciplinary - Rosetta Bonilla - 09/03/2023 11:18 AM CST Patients rhythm changed from Sinus Tach 110 to Afib 100-120, spoke to nurse directly. She will contact Doctor. CINE ASSISTANT * Interdisciplinary - Ameena Ambrocio, RN - 09/03/2023 11:14 AM CST Received call from telemetry, pt now in A fib, Dr Ny aware. New orders placed. CINE ASSISTANT * Plan of Care - Ameena Ambrocio RN - 09/03/2023 9:39 AM CST Problem: Adult Inpatient Plan of Care Goal: Plan of Care Review Flowsheets (Taken 09/03/2023 0972) Plan of Care Reviewed With: patient Today's Goal: remain afebrile this shift Outcome Evaluation: Pt resting in bed alarms activated and audible. pt afebrile this am. barakat in place draining tea colored urine Problem: Fall Injury Risk Goal: Absence of Fall and Fall-Related Injury Intervention: Identify and Manage Contributors Flowsheets (Taken 09/03/2023 0750) Medication Review/Management: medications reviewed Intervention: Promote Injury-Free Environment Flowsheets (Taken 09/03/2023 0750) Safety Promotion/Fall Prevention: nonskid shoes/slippers when out of bed bed alarm chair alarm CINE ASSISTANT * Interdisciplinary - Ameena Ambrocio RN - 09/03/2023 9:21 AM CST Called consult to urology, spoke to Dr Saravia regarding consult CINE ASSISTANT * Tena - Norman Chong RN - 09/03/2023 5:34 AM CST Initial Skin Assessment Patient assessed with 2nd RN Carley Wounds noted: None PRESSURE INJURY AND MOISTURE MANAGEMENT RECOMMENDATIONS: Moisture Management: Patient is Continent and has no moisture problems at this time Pressure Injury Prevention Interventions: Patient is independent in Room and/or Bed Specialty Surface Selection: Moisture Score: 4-->rarely moist Mobility Score: 3-->slightly limited Total Cruzito Score: 19 Patient has intact skin on the pelvis and trunk: Bed Selection based on Cruzito Moisture and Mobility: Moisture 4: Mobility 3 or 4: No Specialty Bed Indicated Wound care: N/A NORMAN CHONG RN CINE ASSISTANT * Tena - Norman Chong RN - 09/03/2023 5:04 AM CST Back from CT CINE ASSISTANT * Tena - Norman Chong RN - 09/03/2023 4:47 AM CST Patient down for CT CINE ASSISTANT * Tena - Norman Chong RN - 09/03/2023 4:43 AM CST Patient to floor from ED via WC to room 241. CINE ASSISTANT documented in this encounter Plan of Treatment Scheduled Orders Name Type Priority Associated Diagnoses Orde r Schedule Pulse Oximetry, Spot PFT Routine WITH VITALS until discontinued starting 09/03/2023 documented as of this encounter Procedures Procedure Name Priority Date/Time Associated Diagnosis Comments APTT (PTT) 09/20/2023 12:00 AM MEDICINE ASSISTANT PROTIME (PT) (PROTHROMBIN TIME) 09/20/2023 12:00 AM MEDICINE ASSISTANT BASIC METABOLIC PANEL W/ CALCIUM TOTAL 09/20/2023 12:00 AM MEDICINE ASSISTANT CBC WITH AUTO DIFFERENTIAL Routine 09/05/2023 4:52 AM MEDICINE ASSISTANT COMPLETE BLOOD COUNT (CBC) WITH DIFF Routine 09/05/2023 4:52 AM MEDICINE ASSISTANT BASIC METABOLIC PANEL W/ CALCIUM TOTAL Routine 09/05/2023 4:52 AM MEDICINE ASSISTANT RHYTHM STRIP 09/05/2023 12:00 AM MEDICINE ASSISTANT RHYTHM STRIP 09/05/2023 12:00 AM MEDICINE ASSISTANT RHYTHM STRIP 09/05/2023 12:00 AM MEDICINE ASSISTANT CBC WITH AUTO DIFFERENTIAL Routine 09/04/2023 5:05 AM MEDICINE ASSISTANT COMPLETE BLOOD COUNT (CBC) WITH DIFF Routine 09/04/2023 5:05 AM MEDICINE ASSISTANT BASIC METABOLIC PANEL W/ CALCIUM TOTAL Routine 09/04/2023 5:05 AM MEDICINE ASSISTANT RHYTHM STRIP 09/04/2023 12:00 AM MEDICINE ASSISTANT URINALYSIS REFLEX IF INDICATED BY ABNORMAL RESULTS Routine 09/03/2023 6:05 AM MEDICINE ASSISTANT HEMOGLOBIN A1C W/ ESTIMATED GLUCOSE Routine 09/03/2023 5:33 AM MEDICINE ASSISTANT CBC WITH AUTO DIFFERENTIAL STAT 09/03/2023 5:33 AM MEDICINE ASSISTANT COMPLETE BLOOD COUNT (CBC) WITH DIFF STAT 09/03/2023 5:33 AM MEDICINE ASSISTANT BASIC METABOLIC PANEL W/ CALCIUM TOTAL STAT 09/03/2023 5:[address] CHEST ABDOMEN AND PELVIS W CONTRAST Stat with Interpretation 09/03/2023 5:06 AM MEDICINE ASSISTANT LACTIC ACID (LACTATE) STAT 09/03/2023 2:28 AM MEDICINE ASSISTANT EKG 12 LEAD STAT 09/03/2023 2:[address] HEAD OR BRAIN WO CONTRAST Stat with Interpretation 09/03/2023 1:54 AM MEDICINE ASSISTANT XR CHEST SINGLE VIEW PORTABLE STAT 09/03/2023 1:39 AM MEDICINE ASSISTANT URINALYSIS REFLEX IF INDICATED BY ABNORMAL RESULTS STAT 09/03/2023 1:28 AM MEDICINE ASSISTANT CULTURE, URINE STAT 09/03/2023 1:28 AM MEDICINE ASSISTANT CRITICAL CARE Routine 09/03/2023 1:27 AM MEDICINE ASSISTANT RSV,SARS-COV-2,INF LUENZA A&B BY PCR STAT 09/03/2023 12:13 AM MEDICINE ASSISTANT CULTURE, BLOOD STAT 09/03/2023 12:13 AM MEDICINE ASSISTANT CULTURE, BLOOD STAT 09/03/2023 12:02 AM MEDICINE ASSISTANT CBC WITH AUTO DIFFERENTIAL STAT 09/03/2023 12:01 AM MEDICINE ASSISTANT LACTIC ACID (LACTATE) STAT 09/03/2023 12:01 AM MEDICINE ASSISTANT CMP (COMPREHENSIVE METABOLIC PANEL) STAT 09/03/2023 12:01 AM MEDICINE ASSISTANT COMPLETE BLOOD COUNT (CBC) WITH DIFF STAT 09/03/2023 12:01 AM MEDICINE ASSISTANT RHYTHM STRIP 09/03/2023 12:00 AM MEDICINE ASSISTANT RHYTHM STRIP 09/03/2023 12:00 AM MEDICINE ASSISTANT RHYTHM STRIP 09/03/2023 12:00 AM MEDICINE ASSISTANT documented in this encounter Results * PROTIME (PT) (PROTHROMBIN TIME) (09/20/2023 12:00 AM MEDICINE ASSISTANT) INR 0.9 SCAN 09/20/2023 us Provider Scan HEMATOLOGY ORDERABLES Final Resu lt Performing Organization Address City/[facility]/ZIP Co de Phone Number SCAN * APTT (PTT) (09/20/2023 12:00 AM MEDICINE ASSISTANT) 09/20/2023 us Provider Scan HEMATOLOGY ORDERABLES Final Resu lt Performing Organization Address [facility] de Phone Number SCAN * BASIC METABOLIC PANEL W/ CALCIUM TOTAL (09/20/2023 12:00 AM MEDICINE ASSISTANT) Only the most recent of4 resultswithin the time period is included. 09/20/2023 us Provider Scan CHEMISTRY ORDERABLES Final Resul t Performing Organization Address [facility]/ZIP Hi de Phone Number SCAN * (ABNORMAL) CBC with Auto Differential (09/05/2023 4:52 AM MEDICINE ASSISTANT) Only the most recent of4 resultswithin the time period is included. WBC 12.42(H) 4.00 - 12.00 10(3)/mcL 09/05/2023 6:30 AM MEDICINE ASSISTANT [facility] RBC 3.60(L) 4.40 - 5.80 10(6)/mcL 09/05/2023 6:30 AM MEDICINE ASSISTANT [facility] HEMOGLOBIN (HGB) 10.5(L) 13.0 - 16.5 g/dL 09/05/2023 6:30 AM MEDICINE ASSISTANT [facility] HEMATOCRIT (HCT) 32.3(L) 38.0 - 50.0 % 09/05/2023 6:30 AM MEDICINE ASSISTANT [facility] MCV 89.7 82.0 - 96.0 fL 09/05/2023 6:30 AM MEDICINE ASSISTANT [facility] MCH 29.2 26.0 - 32.0 pg 09/05/2023 6:30 AM [facility] MCHC 32.5 31.0 - 36.0 g/dL 09/05/2023 6:30 AM [facility] PLATELET COUNT 65(L) 140 - 440 10(3)/[facility] 09/05/2023 6:30 AM [facility] RDW 14.5 11.8 - 15.5 % 09/05/2023 6:30 AM [facility] MPV 14.6(H) 8.0 - 12.6 fL 09/05/2023 6:30 AM [facility] NEUTROPHILS 78.0(H) 40.0 - 68.0 % 09/05/2023 6:30 AM [facility] LYMPHOCYTES 11.4(L) 19.0 - 49.0 % 09/05/2023 6:30 AM [facility] MONOCYTES 10.3 3.0 - 13.0 % 09/05/2023 6:30 AM [facility] EOSINOPHILS 0.0 0.0 - 8.0 % 09/05/2023 6:30 AM [facility] BASOPHILS 0.3 0.0 - 1.0 % 09/05/2023 6:30 AM [facility] ABSOLUTE NEUTROPHILS 9.68(H) 1.40 - 5.30 10(3)/mcL 09/05/2023 6:30 AM [facility] ABSOLUTE LYMPHOCYTES 1.42 0.90 - 3.30 10(3)/mcL 09/05/2023 6:30 AM [facility] ABSOLUTE MONOCYTES 1.28(H) 0.10 - 0.90 10(3)/mcL 09/05/2023 6:30 AM [facility] ABSOLUTE EOSINOPHIL 0.00 0.00 - 0.50 10(3)/mcL 09/05/2023 6:30 AM [facility] ABSOLUTE BASOPHILS 0.04 0.00 - 0.10 10(3)/mcL 09/05/2023 6:30 AM MEDICINE ASSISTANT [facility] NRBC PER 100 WBC 0 09/05/19 24 6:30 AM MEDICINE ASSISTANT [facility] RESULTS ARE CONSISTENT WITH PERIPHERAL SMEAR REVIEW Yes 09/05/2023 6:30 AM MEDICINE ASSISTANT [facility] POLYCHROMASIA 1+ 09/05/2023 6:30 AM MEDICINE ASSISTANT [facility] LARGE PLATELETS 1+ 6:30 AM MEDICINE ASSISTANT [facility] Blood Venipuncture / Unknown 09/05/2023 4:52 AM MEDICINE ASSISTANT 09/05/2023 5:57 AM MEDICINE ASSISTANT us Maricarmen Alvarez APRN, CNP HEMATOLOGY ORDERABLES Final Result [facility] [address] [place] [address] * RHYTHM STRIP (09/05/2023 12:00 AM MEDICINE ASSISTANT) Only the most recent of7 resultswithin the time period is included. 09/05/2023 us Provider Scan IMG ECG ORDERABLES Final Result RESULTING AGENCY * (ABNORMAL) URINALYSIS REFLEX IF INDICATED BY ABNORMAL RESULTS (09/03/2023 6:05 AM MEDICINE ASSISTANT) Only the most recent of2 resultswithin the time period is included. SPECIFIC GRAVITY 1.005 1.003 - 1.030 09/03/2023 7:21 AM MEDICINE ASSISTANT [facility] URINE PH 7.0 5.0 - 9.0 09/03/2023 7:21 AM MEDICINE ASSISTANT [facility] WBC ESTERASE 500 /uL(A) Negative 09/03/2023 7:21 AM MEDICINE ASSISTANT [facility] NITRITE Positive(A) Negative 09/03/2023 7:21 AM MEDICINE ASSISTANT [facility] PROTEIN, RANDOM URINE 500 mg/dL(A) Negative 09/03/2023 7:21 AM MEDICINE ASSISTANT [facility] URINE GLUCOSE, QUAL Negative Negative 09/03/2023 7:21 AM MEDICINE ASSISTANT [facility] URINE KETONES 5 mg/dL(A) Negative 09/03/2023 7:21 AM MEDICINE ASSISTANT [facility] UROBILINOGEN Normal Normal mg/dL 09/03/2023 7:21 AM [facility] URINE BLOOD 250 /uL(A) Negative yoni/ul 09/03/2023 7:21 AM MEDICINE ASSISTANT [facility] URINALYSIS COLOR Brown 09/03/19 7:21 AM [facility] URINALYSIS CLARITY Bloody 09/03/2023 7:21 AM [facility] WBC (Urine) 51-150(A) Negative, 0-5 /hpf 09/03/2023 7:21 AM [facility] URINE RBC'S Packed(A) Negative, 0-2 /hpf 09/03/2023 7:21 AM MEDICINE ASSISTANT [facility] EPITHELIAL CELLS Negative /lpf 09/03/19 7:21 AM [facility] BACTERIA, URINE Few(A) Negative /hpf 09/03/2023 7:21 AM [facility] Urine (Indwelling Catheter) Non-Phlebotomy Collection / Unknown 09/03/2023 6:05 AM MEDICINE ASSISTANT 09/03/2023 6:07 AM MEDICINE ASSISTANT us Maricarmen Alvarez LEAD MECHANICAL ENGINEER, ETHICS INSTRUCTOR URINE ORDERABLES Mireya l Result [facility] [address] [place] [address] * Hemoglobin A1C w/ Estimated Glucose (09/03/2023 5:33 AM MEDICINE ASSISTANT) HGB-A1C 5.8 4.0 - 6.0 % 09/03/2023 8:25 AM MEDICINE ASSISTANT [facility] Est Average Glucose 119.8 mg/dL 09/03/2023 8:25 AM MEDICINE ASSISTANT [facility] Blood Venipuncture / Unknown 09/03/2023 5:33 AM MEDICINE ASSISTANT 09/03/2023 5:51 AM MEDICINE ASSISTANT Narrative [facility] - 09/03/2023 8:25 AM MEDICINE ASSISTANT HEMOGLOBIN A1C: DIABETIC PATIENTS: WELL-CONTROLLED: ?? 6.2 - 7.0 INTERMEDIATE WELL-CONTROLLED: ??7.0 - 9.0 POORLY-CONTROLLED: ??>9.0 us Maricarmen Crawley Kim LEAD MECHANICAL ENGINEER, ETHICS INSTRUCTOR CHEMISTRY ORDERABLES Final Result [facility] [address] [place] [address] * CT CHEST ABDOMEN AND PELVIS W CONTRAST (09/03/2023 5:06 AM MEDICINE ASSISTANT) Anatomical Region Laterality Modality Chest, Abdomen, Pelvis N/A Computed Tomography 09/03/2023 5:35 AM MEDICINE ASSISTANT Impressions 09/03/2023 5:37 AM MEDICINE ASSISTANT IMPRESSION: No focal pneumonic consolidation. Unchanged, lingular opacity, likely atelectasis. Interval resolution of bilateral pleural effusions. Marked prostatomegaly markedly distended urinary bladder with mild right pelvicaliectasis and mild bilateral hydroureter. These findings are most compatible with bladder outlet obstruction. ?? Recommend clinical correlation with serum PSA levels for further evaluation. Massively distended urinary bladder with a Barakat catheter terminating in the patient's urethra. ??Recommend removal or repositioning as clinically warranted. ?? Enlarged periportal lymph node measures 2.2 cm slightly increased compared to prior 07/29/2023. ??Recommend follow-up abdomen pelvis CT with intravenous contrast in 3 months to document stability. Cholelithiasis without evidence of acute cholecystitis. Pulmonary nodule recommendation: Per Fleischner Society Guidelines, no follow-up needed if patient is low-risk (and has no known or suspected primary neoplasm). Non-contrast chest CT can be considered in 12 months if patient is high-risk. Narrative 09/03/2023 5:37 AM MEDICINE ASSISTANT EXAM DESCRIPTION: CT CHEST ABDOMEN AND PELVIS W CONTRAST REASON FOR STUDY: Altered mental status; blood in the Barakat catheter TECHNIQUE: CT scan of the chest, abdomen, and pelvis performed with intravenous and ??without ??oral contrast using helical scanning technique with dynamic intravenous contrast injection. Reconstructed coronal and sagittal MPR images reviewed. All images stored on PACS. Automated exposure control was used as a dose optimization technique for this examination. CONTRAST TYPE/DOSE: 100mL of IOPAMIDOL 76 % IV SOLN ??injected via ?? Intravenous COMPARISON: 07/29/2023 REFERENCE: Per ACR white paper recommendations, unless otherwise specified no follow-up imaging is recommended for incidental renal and adrenal lesions per consensus recommendations based on imaging criteria. Further lab evaluation could be pursued based on clinical findings. FINDINGS: CHEST LUNGS: ?? Severe motion artifact degrades images significantly limiting interpretation evaluation of this examination. ??No focal pneumonic consolidation or pulmonary edema. ??Unchanged lingular opacity, likely atelectasis. ??Evaluation for pulmonary nodules is significantly limited. ??No suspicious mass. ??Triangular pulmonary nodule along the right minor major fissure measures 0.5 cm, likely intrafissural lymph node. ??The central airways are patent. PLEURA: ?? Interval resolution of bilateral pleural effusions. ??No pleural effusion or pneumothorax. MEDIASTINUM/MILIND: ?? Tiny sliding hiatal hernia. ??No supraclavicular, mediastinal or hilar lymphadenopathy. ??Thyroid has a normal CT appearance. HEART: ?? Heart size normal without pericardial effusion. ??There is severe multi-vessel coronary artery disease. ??No large central pulmonary embolus. VASCULATURE CHEST: ?? Thoracic aorta is normal in course and caliber. Three-vessel aortic arch is seen. ??Mild calcified athero scleroses of the thoracic aorta. AXILLA: ?? No adenopathy. CHEST WALL: ?? No masses. ??No subcutaneous air. HARDWARE/LINES/TUBES: ?? None. MUSCULOSKELETAL CHEST: ?? [id number] multilevel degenerative disc disease of the thoracic spine. ABDOMEN/PELVIS LIVER: ?? Normal size. ??No identified cystic or solid masses. GALLBLADDER: ?? Cholelithiasis without evidence of acute cholecystitis. BILE DUCTS: ?? No intrahepatic or extrahepatic ductal dilatation. SPLEEN: ?? Normal size. ??No focal lesions. PANCREAS: ?? No identified cystic or solid masses. No significant calcifications. No adjacent inflammation or peripancreatic fluid collections. Pancreatic duct not dilated. ?? ADRENALS: ?? Normal. KIDNEYS/URINARY TRACT: ?? Kidneys enhance symmetrically. ??Bilateral small low-attenuation lesions too small to characterize by CT likely represents simple cyst statistically speaking. ??Simple cyst in the right kidney are seen. ??Mild right pelvicaliectasis. ??Mild bilateral hydroureter. ?Markedly distended urinary bladder. ??The Barakat catheter terminates in the patient's urethra. GI: ?? Moderate colonic stool burden. ??The appendix is normal. ?? Ascending colon is thick-walled likely secondary to collapse. ??No evidence of obstruction. PERITONEUM: ?? No ascites or free air. RETROPERITONEUM: ?? Prominent retroperitoneal lymph nodes many of which have a benign fatty hilum, likely reactive. ??Enlarged periportal lymph node measures 2.2 cm slightly increased compared to prior 07/29/2023. REPRODUCTIVE: ?? Marked prostatomegaly. VASCULATURE ABDOMEN: ?? The abdominal aorta is normal in course and caliber. ??Cvyd-[id number] aortoiliac atherosclerotic calcifications. ??The proximal superior mesenteric artery is patent. ?? The main portal vein, superior mesenteric vein and splenic vein are patent. MUSCULOSKELETAL ABDOMEN PELVIS: ?? 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 OTHER: ?? No significant abnormality. THIS IS AN ELECTRONICALLY VERIFIED FINAL REPORT 09/03/2023 5:35 AM - Electronically signed by ??Mario Alberto Hawthorne M.D. BB: ALANNA D: ??09/03/2023 5:35 AM T: ??09/03/2023 5:35 AM Report ID: [id number] Reading Location: ??[id number] Procedure Note Mario Alberto Hawthorne MD - 09/03/2023 EXAM DESCRIPTION: CT CHEST ABDOMEN AND PELVIS W CONTRAST REASON FOR STUDY: Altered mental status; blood in the Barakat catheter TECHNIQUE: CT scan of the chest, abdomen, and pelvis performed with intravenous and without oral contrast using helical scanning technique with dynamic intravenous contrast injection. Reconstructed coronal and sagittal MPR images reviewed. All images stored on PACS. Automated exposure control was used as a dose optimization technique for this examination. CONTRAST TYPE/DOSE: 100mL of IOPAMIDOL 76 % IV SOLN injected via Intravenous COMPARISON: 07/29/2023 REFERENCE: Per ACR white paper recommendations, unless otherwise specified no follow-up imaging is recommended for incidental renal and adrenal lesions per consensus recommendations based on imaging criteria. Further lab evaluation could be pursued based on clinical findings. FINDINGS: CHEST LUNGS: Severe motion artifact degrades images significantly limiting interpretation evaluation of this examination. No focal pneumonic consolidation or pulmonary edema. Unchanged lingular opacity, likely atelectasis. Evaluation for pulmonary nodules is significantly limited. No suspicious mass. Triangular pulmonary nodule along the right minor major fissure measures 0.5 cm, likely intrafissural lymph node. The central airways are patent. PLEURA: Interval resolution of bilateral pleural effusions. No pleural effusion or pneumothorax. MEDIASTINUM/MILIND: Tiny sliding hiatal hernia. No supraclavicular, mediastinal or hilar lymphadenopathy. Thyroid has a normal CT appearance. HEART: Heart size normal without pericardial effusion. There is severe multi-vessel coronary artery disease. No large central pulmonary embolus. VASCULATURE CHEST: Thoracic aorta is normal in course and caliber. Three-vessel aortic arch is seen. Mild calcified athero scleroses of the thoracic aorta. AXILLA: No adenopathy. CHEST WALL: No masses. No subcutaneous air. HARDWARE/LINES/TUBES: None. MUSCULOSKELETAL CHEST: Hskz-ov-hscucnsd multilevel degenerative disc disease of the thoracic spine. ABDOMEN/PELVIS LIVER: Normal size. No identified cystic or solid masses. GALLBLADDER: Cholelithiasis without evidence of acute cholecystitis. BILE DUCTS: No intrahepatic or extrahepatic ductal dilatation. SPLEEN: Normal size. No focal lesions. PANCREAS: No identified cystic or solid masses. No significant calcifications. No adjacent inflammation or peripancreatic fluid collections. Pancreatic duct not dilated. ADRENALS: Normal. KIDNEYS/URINARY TRACT: Kidneys enhance symmetrically. Bilateral small low-attenuation lesions too small to characterize by CT likely represents simple cyst statistically speaking. Simple cyst in the right kidney are seen. Mild right pelvicaliectasis. Mild bilateral hydroureter. Markedly distended urinary bladder. The Barakat catheter terminates in the patient's urethra. GI: Moderate colonic stool burden. The appendix is normal. Ascending colon is thick-walled likely secondary to collapse. No evidence of obstruction. PERITONEUM: No ascites or free air. RETROPERITONEUM: Prominent retroperitoneal lymph nodes many of which have a benign fatty hilum, likely reactive. Enlarged periportal lymph node measures 2.2 cm slightly increased compared to prior 07/29/2023. REPRODUCTIVE: Marked prostatomegaly. VASCULATURE ABDOMEN: The abdominal aorta is normal in course and caliber. [id number] aortoiliac atherosclerotic calcifications. The proximal superior mesenteric artery is patent. The main portal vein, superior mesenteric vein and splenic vein are patent. MUSCULOSKELETAL ABDOMEN PELVIS: Moderate to severe multilevel degenerative disc disease of the lumbar spine, worse in the upper lumbar spine and at L3-L4. OTHER: No significant abnormality. THIS IS AN ELECTRONICALLY VERIFIED FINAL REPORT 09/03/2023 5:35 AM - Electronically signed by Mario Alberto Hawthorne M.D. BB: ALANNA Report ID: [id number] Reading Location: [place] [id number] IMPRESSION: No focal pneumonic consolidation. Unchanged, lingular opacity, likely atelectasis. Interval resolution of bilateral pleural effusions. Marked prostatomegaly markedly distended urinary bladder with mild right pelvicaliectasis and mild bilateral hydroureter. These findings are most compatible with bladder outlet obstruction. Recommend clinical correlation with serum PSA levels for further evaluation. Massively distended urinary bladder with a Barakat catheter terminating in the patient's urethra. Recommend removal or repositioning as clinically warranted. Enlarged periportal lymph node measures 2.2 cm slightly increased compared to prior 07/29/2023. Recommend follow-up abdomen pelvis CT with intravenous contrast in 3 months to document stability. Cholelithiasis without evidence of acute cholecystitis. Pulmonary nodule recommendation: Per Fleischner Society Guidelines, no follow-up needed if patient is low-risk (and has no known or suspected primary neoplasm). Non-contrast chest CT can be considered in 12 months if patient is high-risk. us Maricarmen Alvarez APRN, YAA IMG CT ORDERABLES Fin al Result * Lactic Acid (Lactate) (09/03/2023 2:28 AM MEDICINE ASSISTANT) Only the most recent of2 resultswithin the time period is included. LACTIC ACID 1.3 0.7 - 2.0 mmol/L 09/03/2023 2:51 AM MEDICINE ASSISTANT [facility] Comment: Specimen is hemolyzed. In vitro hemolysis could affect results. Clinical correlation advised. Blood Venipuncture / Unknown 09/03/2023 2:28 AM MEDICINE ASSISTANT 09/03/2023 2:31 AM MEDICINE ASSISTANT Edmundo Parsons MD CHEMISTRY ORDERABLES Mireya l Result Performing Organization Address City/[facility] Co de Phone Number [facility] [address] [place] [address] * EKG 12 LEAD (09/03/2023 2:02 AM MEDICINE ASSISTANT) Ventricular Rate 111 BPM EXTERNAL EKG Atrial Rate 111 BPM EXTERNAL EKG P-R Interval 174 ms EXTERNAL EKG QRS Duration 84 ms EXTERNAL EKG Q-T Duration 342 ms EXTERNAL EKG QTC CALCULATION 465 ms EXTERNAL EKG P [place] 56 degrees EXTERNAL EKG R [place] 17 degrees EXTERNAL EKG T [place] 45 degrees EXTERNAL EKG 09/03/2023 2:02 AM MEDICINE ASSISTANT Impressions EXTERNAL EKG - 09/06/2023 10:44 AM MEDICINE ASSISTANT Sinus tachycardia with premature atrial complexes Nonspecific ST abnormality Abnormal ECG When compared with ECG of 28-JUL-2023 08:38, Sinus rhythm has replaced Atrial fibrillation Criteria for Septal infarct are no longer present Nonspecific T wave abnormality no longer evident in Anterolateral leads Confirmed by Mega Gil ([id number]) on 09/06/2023 10:44:55 AM Narrative Procedure Note Mega Gil MD - 09/06/2023 IMPRESSION: Sinus tachycardia with premature atrial complexes Nonspecific ST abnormality Abnormal ECG When compared with ECG of 28-JUL-2023 08:38, Sinus rhythm has replaced Atrial fibrillation Criteria for Septal infarct are no longer present Nonspecific T wave abnormality no longer evident in Anterolateral leads Confirmed by Mega Gil ([id number]) on 09/06/2023 10:44:55 AM Edmundo Parsons MD IMG ECG ORDERABLES Final Result EXTERNAL EKG * CT HEAD OR BRAIN WO CONTRAST (09/03/2023 1:54 AM MEDICINE ASSISTANT) Anatomical Region Laterality Modality Head N/A Computed Tomogra phy 09/03/2023 2:18 AM MEDICINE ASSISTANT Impressions 09/03/2023 2:21 AM MEDICINE ASSISTANT IMPRESSION: No acute intracranial findings. MRI is more sensitive for the detection of acute cerebral ischemia. Narrative 09/03/2023 2:21 AM MEDICINE ASSISTANT EXAM DESCRIPTION: CT HEAD OR BRAIN WO CONTRAST REASON FOR STUDY: Altered mental status TECHNIQUE: Axial images acquired through the brain without intravenous contrast. ??Images stored on PACS. ?? Automated exposure control was used as a dose optimization technique for this examination. COMPARISON: 01/05/2023 FINDINGS: BRAIN: No acute intracranial hemorrhage. ??Ventricles are normal in size and morphology. ??No midline shift or mass effect. ?? Palacios-white matter differentiation is normal. ??Nonspecific, periventricular white matter low attenuation, likely small-vessel ischemic disease. CALVARIUM: ?? No fracture. SINUSES/MASTOIDS: ?? No fluid or mucosal thickening. ORBITS: ?? No significant abnormality. OTHER: ?? No other significant abnormality. THIS IS AN ELECTRONICALLY VERIFIED FINAL REPORT 09/03/2023 2:18 AM - Electronically signed by ??Mario Alberto Hawthorne M.D. BB: ALANNA D: ??09/03/2023 2:18 AM T: ??09/03/2023 2:18 AM Report ID: [id number] Reading Location: ??[id number] Procedure Note Mario Alberto Hawthorne MD - 09/03/2023 EXAM DESCRIPTION: CT HEAD OR BRAIN WO CONTRAST REASON FOR STUDY: Altered mental status TECHNIQUE: Axial images acquired through the brain without intravenous contrast. Images stored on PACS. Automated exposure control was used as a dose optimization technique for this examination. COMPARISON: 01/05/2023 FINDINGS: BRAIN: No acute intracranial hemorrhage. Ventricles are normal in size and morphology. No midline shift or mass effect. Palacios-white matter differentiation is normal. Nonspecific, periventricular white matter low attenuation, likely small-vessel ischemic disease. CALVARIUM: No fracture. SINUSES/MASTOIDS: No fluid or mucosal thickening. ORBITS: No significant abnormality. OTHER: No other significant abnormality. THIS IS AN ELECTRONICALLY VERIFIED FINAL REPORT 09/03/2023 2:18 AM - Electronically signed by Mario Alberto Hawthorne M.D. BB: ALANNA Report ID: [id number] Reading Location: [id number] IMPRESSION: No acute intracranial findings. MRI is more sensitive for the detection of acute cerebral ischemia. us Edmundo Parsons MD IMG CT ORDERABLES Final R esult * XR CHEST SINGLE VIEW PORTABLE (09/03/2023 1:39 AM MEDICINE ASSISTANT) Anatomical Region Laterality Modality Chest N/A Digital Radiogra phy 09/03/2023 2:00 AM MEDICINE ASSISTANT Impressions 09/03/2023 2:02 AM MEDICINE ASSISTANT IMPRESSION: Focal opacity adjacent to right upper chest wall cardiac lead. Recommend removal and follow-up standard two-view chest radiograph for further evaluation. Narrative 09/03/2023 2:02 AM MEDICINE ASSISTANT EXAM DESCRIPTION: XR CHEST SINGLE VIEW PORTABLE REASON FOR STUDY: ALTEREDD LOC; ??friend from [facility] where patient lives. ??Friend states that [facility] because patient has had increased confusion since 1500 today and blood in his barakat catheter. ?? TECHNIQUE: Single portable ??radiographic view(s) of the chest. COMPARISON: 08/02/2023 FINDINGS: ??Interpretation and evaluation is limited due to image quality. ?? LUNGS: Focal opacity adjacent to right upper chest wall cardiac lead. ?? No focal pneumonic consolidation, pleural effusion, or pneumothorax. ?? HEART/MEDIASTINUM: ??Cardiac silhouette normal in size. Mediastinal and hilar contours appear normal. LINES/TUBES: ??None. BONES: ??No acute osseous abnormality. THIS IS AN ELECTRONICALLY VERIFIED FINAL REPORT 09/03/2023 2:00 AM - Electronically signed by ??Mario Alberto Hawthorne M.D. BB: ALANNA D: ??09/03/2023 2:00 AM T: ??09/03/2023 2:00 AM Report ID: [id number] Reading Location: ??[id number] Procedure Note Mario Alberto Hawthorne MD - 09/03/2023 EXAM DESCRIPTION: XR CHEST SINGLE VIEW PORTABLE REASON FOR STUDY: ALTEREDD LOC; friend from [facility] where patient lives. Friend states that the staff [facility] called him because patient has had increased confusion since 1500 today and blood in his barakat catheter. TECHNIQUE: Single portable radiographic view(s) of the chest. COMPARISON: 08/02/2023 FINDINGS: Interpretation and evaluation is limited due to image quality. LUNGS: Focal opacity adjacent to right upper chest wall cardiac lead. No focal pneumonic consolidation, pleural effusion, or pneumothorax. HEART/MEDIASTINUM: Cardiac silhouette normal in size. Mediastinal and hilar contours appear normal. LINES/TUBES: None. BONES: No acute osseous abnormality. THIS IS AN ELECTRONICALLY VERIFIED FINAL REPORT 09/03/2023 2:00 AM - Electronically signed by Mario Alberto Hawthorne M.D. BB: ALANNA Report ID: [id number] Reading Location: [id number] IMPRESSION: Focal opacity adjacent to right upper chest wall cardiac lead. Recommend removal and follow-up standard two-view chest radiograph for further evaluation. Edmundo Parsons MD IM DIAGNOSTIC ORDERABLES Final Result * Culture, Urine (09/03/2023 1:28 AM MEDICINE ASSISTANT) CULTURE RESULTS PSEUDOMONAS AERUGINOSA 09/05/2023 9:26 AM MEDICINE ASSISTANT [facility] Culture (Indwelling Catheter) Non-Phlebotomy Collection / Unknown 09/03/2023 1:28 AM MEDICINE ASSISTANT 09/03/2023 3:57 AM MEDICINE ASSISTANT Narrative Organism Antibiotic Method Susceptibility Pseudomonas aeruginosa Cefepime [facility] IIB <=1 mcg/ml: Susceptible Pseudomonas aeruginosa Gentamicin [facility] IIB Resistant Pseudomonas aeruginosa Levofloxacin [facility] IIB 0.5 mcg/ml: Susceptible Pseudomonas aeruginosa Meropenem [facility] IIB <=0.25 mcg/ml: Susceptible Pseudomonas aeruginosa Piperacillin/Tazobactam [facility] IIB <=4 mcg/ml: Susceptible Pseudomonas aeruginosa Tobramycin [facility] IIB <=1 mcg/ml: Susceptible Maricarmen Denisa Alvarez APRN, ETHICS INSTRUCTOR MICROBIOLOGY - GENERA L ORDERABLES Final Result [facility] [address] [place] [address], * Critical Care (09/03/2023 1:27 AM MEDICINE ASSISTANT) Narrative Edmundo Parsons MD - 09/03/2023 1:27 AM MEDICINE ASSISTANT Edmundo Parsons MD ? 09/03/2023 ??5:24 AM Critical Care Performed by: Edmundo Parsons MD Authorized by: Edmundo Parsons MD ?? Critical care provider statement: ??Critical care time (minutes): ??40 ??Critical care time was exclusive of: ??Separately billable procedures and treating other patients ??Critical care was necessary to treat or prevent imminent or life-threatening deterioration of the following conditions: ??Sepsis ??Critical care was time spent personally by me on the following activities: ??Development of treatment plan with patient or surrogate, evaluation of patient's response to treatment, examination of patient, obtaining history from patient or surrogate, review of old charts, re-evaluation of patient's condition, pulse oximetry, ordering and review of radiographic studies, ordering and review of laboratory studies and ordering and performing treatments and interventions ??I assumed direction of critical care for this patient from another provider in my specialty: no ?Care discussed with: admitting provider ?? Edmundo Parsons MD PROCEDURE/MINOR SURGICAL ORDERABLES Final Result * RSV,SARS-COV-2,INFLUENZA A&B BY PCR (09/03/2023 12:13 AM MEDICINE ASSISTANT) FLU A Negative Negative, Error 09/03/2023 1:02 AM MEDICINE ASSISTANT [facility] FLU B Negative Negative 09/03/2023 1:02 AM MEDICINE ASSISTANT [facility] RESP SYNC VIRUS Negative Negative 1:02 AM MEDICINE ASSISTANT [facility] SARSCOV2 NOT DETECTED (Reference Range for this test is Not Detected) 09/03/2023 1:02 AM MEDICINE ASSISTANT [facility] Comment:This test was perfor med by a Reverse Strawhat Inspector [employer] Packer PCR Method. Swab NASOPHARYNGEAL WASHINGS / Unknown Non-Phlebotomy Collection / Unknown 09/03/2023 12:13 AM MEDICINE ASSISTANT 09/03/2023 12:21 AM MEDICINE ASSISTANT Narrative [facility] - 09/03/2023 1:02 AM MEDICINE ASSISTANT This test has not been FDA cleared or approved; the test has been authorized by FDA under an Emergency Use Authorization (EUA) for use by laboratories certified under the CLIA that meet the requirements to perform moderate, high or waived complexity tests. Authorized Fact Sheets about this test for providers and patients are available at: https://www.fda.gov/medical-devices/ldjzlharq-hqnjoftlzw-okfwmof-devices/emergen -us e-authorizations Edmundo Parsons MD MICROBIOLOGY - GENERAL OR DERABLES Final Result Performing Organization Address City/[facility]/ZIP Co de Phone Number [facility] [address] [place] [address] * Blood Culture #2 (09/03/2023 12:13 AM MEDICINE ASSISTANT) Only the most recent of2 resultswithin the time period is included. CULTURE RESULTS NO GROWTH WITHIN 5 DAYS, FINAL RESULT 09/08/2023 1:01 AM MEDICINE ASSISTANT [facility] Culture BLOOD SPECIMEN / Unknown Venipuncture / Unknown 09/03/2023 12:13 AM MEDICINE ASSISTANT 09/03/2023 12:22 AM MEDICINE ASSISTANT Edmundo Parsons MD MICROBIOLOGY - GENERAL OR DERABLES Final Result Performing Organization Address City/[facility]/ZIP Co de Phone Number [facility] [address] [place] [address], * (ABNORMAL) CMP (Comprehensive Metabolic Panel) (09/03/2023 12:01 AM MEDICINE ASSISTANT) SODIUM 136 136 - 145 mmol/L 09/03/2023 12:48 AM [facility] POTASSIUM 3.8 3.5 - 5.1 mmol/L 09/03/2023 12:48 AM [facility] CHLORIDE 104 98 - 107 mmol/L 09/03/2023 12:48 AM [facility] CO2, VENOUS 22 22 - 30 mmol/L 09/03/2023 12:48 AM [facility] ANION GAP 13.8 <18.0 mmol/L 09/03/2023 12:48 AM [facility] GLUCOSE 124(H) 70 - 99 mg/dL 09/03/2023 12:48 AM [facility] BUN 13 8 - 26 mg/dL 09/03/2023 12:48 AM [facility] CREATININE, BLOOD 0.87 0.70 - 1.30 mg/dL 09/03/2023 12:48 AM [facility] BUN/CREATININE RATIO 15 12 - 20 ratio 09/03/2023 12:48 AM [facility] TOTAL PROTEIN 7.1 6.3 - 8.2 g/dL 09/03/2023 12:48 AM [facility] ALBUMIN 4.0 3.5 - 5.0 g/dL 09/03/2023 12:48 AM [facility] A/G RATIO 1.3 1.0 - 2.2 09/03/2023 12:48 AM [facility] CALCIUM 9.0 8.7 - 10.5 mg/dL 09/03/2023 12:48 AM [facility] T BILI 0.5 0.2 - 1.2 mg/dL 09/03/2023 12:48 AM [facility] SGOT (AST) 13 5 - 34 U/L 09/03/2023 12:48 AM [facility] SGPT (ALT) 14 0 - 55 U/L 09/03/2023 12:48 AM [facility] ALKALINE PHOSPHATASE 78 40 - 150 U/L 09/03/2023 12:48 AM MEDICINE ASSISTANT [facility] GFR, ESTIMATED >60 >=60 09/03/2023 12:48 AM MEDICINE ASSISTANT [facility] Comment: Creatinine Clearance is the preferred criteria for selecting drug dose adjustments in renally impaired patients. ??The GFR is provided as additional pertinent clinical information. GFR is reported in mL/min/1.73 sq m. Calculation based on the Chronic Kidney Disease Epidemiology Collaboration (CKD- EPI) equation refit without adjustment for race. GFR, EST. >60 >=60 024 12:48 AM MEDICINE ASSISTANT [facility] GFR, EST. NONAFRICAN >60 >=60 09/03/2023 12:48 AM MEDICINE ASSISTANT 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, chronic condition Essential hypertension, benign GERD without esophagitis Esophageal reflux Mixed hyperlipidemia Paroxysmal atrial fibrillation (HCC) Atrial fibrillation Thrombocytopenia (HCC) Thrombocytopenia, unspecified Gross hematuria History of urinary retention Personal history of other disorder of urinary system Catheter-associated urinary tract infection (HCC) documented in this encounter Admitting Diagnoses Diagnosis Sepsis (HCC) documented in this encounter Administered Medications Inactive Administered Medications - up to 3 most recent administrations Medication Order MAR Action Action Date Dose Rate Site 0.9 % sodium chloride solution at 1,000 mL/hr, Intravenous, ONCE, 1 dose, On 09/03/23 at 0400 New Bag 09/03/2023 3:55 AM MEDICINE ASSISTANT 1,500 mL 1000 mL/hr IV Linked Line acetaminophen (TYLENOL) suppository 650 mg 650 mg, Rectal, EVERY 4 HOURS PRN, Starting on Mon09/03/23 at 0336, Until Mon09/05/23 at 1712, Mild pain or more severe pain if patient requests, Fever, If patient is taking oral intake without complications and both PO/[place] orders are active, administer through the oral route. acetaminophen (TYLENOL) tablet 650 mg 650 mg, Oral, EVERY 4 HOURS PRN, Starting on Mon09/03/23 at 0336, Until Mon09/05/23 at 1712, Mild pain or more severe pain if patient requests, Fever, If patient is taking oral intake without complications and both PO/[place] orders are active, administer through the oral route. acetaminophen (TYLENOL) tablet 975 mg 975 mg, Oral, ONCE, 1 dose, On Mon09/03/23 at 0000, Maximum dose of acetaminophen is 4000 mg from all sources in 24 hours.Indications:Pain or Fever Given 09/03/2023 12:09 AM MEDICINE ASSISTANT 975 mg cefepime (MAXIPIME) 1 g in sodium chloride 0.9 % 100 mL IVPB 1 g, Intravenous, ONCE, 1 dose, On Mon09/04/23 at 1600, Administer over 30 Minutes, Indications: UTI, at 200 mL/hrIndications:UTI New Bag 09/04/2023 3:52 PM MEDICINE ASSISTANT 1 g 200 mL/hr cefepime (MAXIPIME) 1 g in sodium chloride 0.9 % 100 mL IVPB 1 g, Intravenous, EVERY 8 HOURS, First dose (after last modification) on Mon09/05/23 at 0000, Until Discontinued, Administer over 4 Hours, Indications: UTI, at 25 mL/hrIndications:UTI New Bag 09/05/2023 8:35 AM MEDICINE ASSISTANT 1 g 25 mL/hr New Bag 09/05/2023 3:10 AM MEDICINE ASSISTANT 1 g 25 mL/hr cefTRIAXone (ROCEPHIN) injection 2 g 2 g, Intravenous, ONCE, 1 dose, On Mon09/03/23 at 0100, Indications: BacteremiaIndications:Bacte remia Given 09/03/2023 12:30 AM MEDICINE ASSISTANT 2 g cefTRIAXone (ROCEPHIN) injection 2 g 2 g, Intravenous, EVERY 24 HOURS, First dose on Mon09/03/23 at 2100, Until Discontinued, Indications: BacteremiaIndications:Bacte remia Given 09/03/2023 9:04 PM MEDICINE ASSISTANT 2 g IV Linked Line iopamidol (ISOVUE-370) 76 % injection 100 mL 100 mL, Intravenous, ONCE, 1 dose, On 09/03/23 at 0530 Given 09/03/2023 4:56 AM MEDICINE ASSISTANT 100 mL magnesium hydroxide (MILK OF MAGNESIA) 400 MG/5ML suspension 30 mL 30 mL, Oral, DAILY PRN, Starting on Mon09/03/23 at 0333, Until Tu09/05/23 at 1712, Constipation - 3rd line, Magnesium hydroxide 400 mg/5 ml = 166.7 mg elemental magnesium/5ml. Hold for loose stools (loose, liquid, mucoid, soft, watery stool that takes the shape of the container) or greater than 2 moderate or larger stools in 24hrsIndications:Constipati on melatonin tablet 6 mg 6 mg, Oral, NIGHTLY PRN, Starting on Mon09/03/23 at 0333, Until Mon09/05/23 at 1712, Other, Sleep metoprolol tartrate (LOPRESSOR) injection 5 mg 5 mg, Intravenous, ONCE, 1 dose, On Mon09/03/23 at 1130, Notify provider after one time dose given for afib. Scheduled IV lopressor is permitted on general care units with house-wide telemetry.Bedside cardiac monitoring is required for PRN use and Once orders. In all cases, vitals should be taken before administration and 15 minutes after each dose. Administer by slow IV push over 5 minutes. Notify provider if patient is taking enteral medications so patient can be considered for transition off intravenous beta-lilly. Given 09/03/2023 11:19 AM MEDICINE ASSISTANT 5 mg polyethylene glycol (GLYCOLAX, MIRALAX) packet 17 g 17 g, Oral, 2 TIMES DAILY PRN, Starting on Mon09/03/23 at 0333, Until Tu09/05/23 at 1712, Constipation - 1st line, Dilute dose in 120 - 240 mL of beverage.Hold for loose stools (loose, liquid, mucoid, soft, watery stool that takes the shape of the container) or greater than 2 moderate or larger stools in 24hrsIndications:Constipati on Prochlorperazine Edisylate (COMPAZINE) injection 5 mg 5 mg, Intravenous, EVERY 6 HOURS PRN, Starting on Mon09/03/23 at 0336, Until Mon09/05/23 at 1712, Nausea - 1st line senna (SENOKOT) tablet 8.6 mg 8.6 mg (1 Tablet), Oral, 2 TIMES DAILY PRN, Starting on Mon09/03/23 at 0333, Until Mon09/05/23 at 1712, Constipation - 2nd line sodium chloride 0.9 % 1,000 mL IV bolus 1,000 mL, Intravenous, ONCE, 1 dose, On Mon09/03/23 at 0000, Administer over 1 Hours New Bag 09/03/2023 12:11 AM MEDICINE ASSISTANT 1,000 mL 1000 mL/hr documented in this encounter Active and Recently Administered Medications Times are shown in MEDICINE ASSISTANT. Scheduled Medication Order 09/03/2023 09/04/2023 09/05/2023 0.9 % sodium chloride solution (COMPLETED) at 1,000 mL/hr, Intravenous, ONCE, 1 dose, On Mon09/03/23 at 0400 0355 (New Bag - Provider: Zully Hall, ALPHONSO)0434 (Stopped - Provider: Zully Hall, ALPHONSO) acetaminophen (TYLENOL) tablet 975 mg (COMPLETED) 975 mg, Oral, ONCE, 1 dose, On Mon09/03/23 at 0000, Maximum dose of acetaminophen is 4000 mg from all sources in 24 hours. 0009 (Given - Provider: Andre Fairchild RN) cefepime (MAXIPIME) 1 g in sodium chloride 0.9 % 100 mL IVPB (COMPLETED) 1 g, Intravenous, ONCE, 1 dose, On Mon09/04/23 at 1600, Administer over 30 Minutes, Indications: UTI, at 200 mL/hr 1552 (New Bag - Provider: Ameena Ambrocio RN)1622 (Stopped - Provider: Ameena Ambrocio RN) cefepime (MAXIPIME) 1 g in sodium chloride 0.9 % 100 mL IVPB 1 g, Intravenous, EVERY 8 HOURS, First dose (after last modification) on Mon09/05/23 at 0000, Until Discontinued, Administer over 4 Hours, Indications: UTI, at 25 mL/hr 0310 (New Bag - Provider: Tessa Smith)0500 (Stopped - Provider: Tessa Smith - Comment: Pt lost IV access)0710 (Stopped - Provider: Caity Mckeon RN)0835 (New Bag - Provider: Caity Mckeon, ALPHONSO)1235 (Stopped - Provider: Caity Mckeon, ALPHONSO) cefTRIAXone (ROCEPHIN) injection 2 g (COMPLETED) 2 g, Intravenous, ONCE, 1 dose, On 09/03/23 at 0100, Indications: Bacteremia 0030 (Given - Provider: Andre Fairchild, ALPHONSO) cefTRIAXone (ROCEPHIN) injection 2 g (CANCELED) 2 g, Intravenous, EVERY 24 HOURS, First dose on 09/03/23 at 2100, Until Discontinued, Indications: Bacteremia 210 (Given - Provider: Tessa Smith) iopamidol (ISOVUE-370) 76 % injection 100 mL (COMPLETED) 100 mL, Intravenous, ONCE, 1 dose, On 09/03/23 at 0530 0456 (Given - Provider: Diomedes Casanova, RTR) metoprolol tartrate (LOPRESSOR) injection 5 mg (COMPLETED) 5 mg, Intravenous, ONCE, 1 dose, On 09/03/23 at 1130, Notify provider after one time dose given for afib. Scheduled IV lopressor is permitted on general care units with house-wide telemetry.Bedside cardiac monitoring is required for PRN use and Once orders. In all cases, vitals should be taken before administration and 15 minutes after each dose. Administer by slow IV push over 5 minutes. Notify provider if patient is taking enteral medications so patient can be considered for transition off intravenous beta-lilly. 1119 (Given - Provider: Ameena Ambrocio RN) sodium chloride 0.9 % 1,000 mL IV bolus (COMPLETED) 1,000 mL, Intravenous, ONCE, 1 dose, On 09/03/23 at 0000, Administer over 1 Hours 0011 (New Bag - Provider: Andre Fairchild, ALPHONSO)0128 (Stopped - Provider: Andre Fairchild, RN) PRN Medication Order 09/03/2023 09/04/2023 09/05/2023 acetaminophen (TYLENOL) suppository 650 mg(Linked Group 1) 650 mg, Rectal, EVERY 4 HOURS PRN, Starting on 09/03/23 at 0336, Until Tu09/05/23 at 1712, Mild pain or more severe pain if patient requests, Fever, If patient is taking oral intake without complications and both PO/KY orders are active, administer through the oral route. acetaminophen (TYLENOL) tablet 650 mg(Linked Group 1) 650 mg, Oral, EVERY 4 HOURS PRN, Starting on Mon09/03/23 at 0336, Until Mon09/05/23 at 171, Mild pain or more severe pain if patient requests, Fever, If patient is taking oral intake without complications and both PO/KY orders are active, administer through the oral route. magnesium hydroxide (MILK OF MAGNESIA) 400 MG/5ML suspension 30 mL 30 mL, Oral, DAILY PRN, Starting on Mon09/03/23 at 0333, Until Mon09/05/23 at 171, Constipation - 3rd line, Magnesium hydroxide 400 mg/5 ml = 166.7 mg elemental magnesium/5ml. Hold for loose stools (loose, liquid, mucoid, soft, watery stool that takes the shape of the container) or greater than 2 moderate or larger stools in 24hrs melatonin tablet 6 mg 6 mg, Oral, NIGHTLY PRN, Starting on Mon09/03/23 at 0333, Until Mon09/05/23 at 1711, Other, Sleep polyethylene glycol (GLYCOLAX, MIRALAX) packet 17 g 17 g, Oral, 2 TIMES DAILY PRN, Starting on Mon09/03/23 at 0333, Until Mon09/05/23 at 1711, Constipation - 1st line, Dilute dose in 120 - 240 mL of beverage.Hold for loose stools (loose, liquid, mucoid, soft, watery stool that takes the shape of the container) or greater than 2 moderate or larger stools in 24hrs Prochlorperazine Edisylate (COMPAZINE) injection 5 mg 5 mg, Intravenous, EVERY 6 HOURS PRN, Starting on Mon09/03/23 at 0336, Until Mon09/05/23 at 171, Nausea - 1st line senna (SENOKOT) tablet 8.6 mg 8.6 mg (1 Tablet), Oral, 2 TIMES DAILY PRN, Starting on Mon09/03/23 at 0333, Until Mon09/05/23 at 171, Constipation - 2nd line Linked Groups Order Group 1: acetaminophen (TYLENOL) tablet 650 mgJump to med 650 mg, Oral, EVERY 4 HOURS PRN, Starting on Mon09/03/23 at 0336, Until Mon09/05/23 at 1712, Mild pain or more severe pain if patient requests, Fever, If patient is taking oral intake without complications and both PO/KY orders are active, administer through the oral route. Or acetaminophen (TYLENOL) suppository 650 mgJump to med 650 mg, Rectal, EVERY 4 HOURS PRN, Starting on 09/03/23 at 0336, Until Tu09/05/23 at 1712, Mild pain or more severe pain if patient requests, Fever, If patient is taking oral intake without complications and both PO/KY orders are active, administer through the oral route. documented in this encounter Additional Health Concerns 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 07/28/2023 09/04/2023 8:45 AM MEDICINE ASSISTANT COVID - 19 09/02/2023 09/02/2023 09/04/2023 8:45 AM MEDICINE ASSISTANT Assessment Noted Time PHQ-9 Depression Total Score: 0 08/14/19 24 3:02 PM MEDICINE ASSISTANT documented as of this encounter Care Teams Hogshead Wrecker Relationship Specialty Start Date End Date Irving Jeffries MD [address] [place] [address] PCP - General Internal Medicine 07/16/21 07/04/24 Ton Ling APRN, ETHICS INSTRUCTOR [address] [place] [address] Nurse Practitioner Advanced Practice Nurse 04/24/23 Ame Scanlon, LEAD MECHANICAL ENGINEER, ETHICS INSTRUCTOR [address] [facility], [facility] [address] [place] [address] Nurse Practitioner Cardiology 08/23/23 Michael Ahmadi MD [address] [place] [address] Consulting Physician Medical Oncology 07/26/23 documented as of this encounter
--- OUTSIDE RECORDS SUMMARY | 2024-07-28 14:07 | XMS_ITS | Encounter Summary ---
Author Organization [facility] Address [address] [place] [address] Phone Care Team Providers Care Director Of Exhibits Name Role Phone Irving Jeffries MD Primary Care Provider Ton Ling CO SUPERVISOR GROUNDS AND LANDSCAPE, SUPERVISOR AREA Unavailable Ame Scanlon CO SUPERVISOR GROUNDS [employer] LANDSCAPE, SUPERVISOR AREA Unavailable + [phone] Michael Ahmadi MD Unavailable [phone] Reason for Visit * Auth/Cert (Routine) Specialty Diagnoses / Procedures Referred By Geeta t Referred To Contact Referral ID Status Reason Start Date Expiration Date Visits Re quested Visits Authorized [id number] 1 1 Encounter Details Date Type Department Care Team (Late st Contact Info) Description 08/30/2023 1:00 AM HEALTH SCIENCE INSTRUCTOR [facility] [address] [place] [address] Bea Clark, RN [place] DISEASE MGT PHONE Social History Tobacco Use Types Packs/Day Years [...] How often do you attend chur or taoism services? Patient unable to answer 08/14/2023 Do you belong to any clubs o r organizations such as sabianism groups, unions, fraternal or athletic groups, or [...] 0 07/31 [facility] - Occupational Stress Questionnaire Answer Date [...] slept in a mcc (including now)? Patient unable to answer 08/14/2023 [...] Time 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 07/28/2023 09/04/2023 8:45 AM HEALTH SCIENCE INSTRUCTOR Assessment Noted Time PHQ-9 Depression Total Score: 0 08/14/19 3:02 PM HEALTH SCIENCE INSTRUCTOR documented as of this encounter Care Teams Director Of Exhibits Relationship Specialty Start Date End Date Irving Jeffries MD [address] [place] [address] PCP - General Internal Medicine 07/16/21 07/04/24 Ton Ling, CO SUPERVISOR GROUNDS AND LANDSCAPE, SUPERVISOR AREA [address] [place] [address] Nurse Practitioner Advanced Practice Nurse 04/24/23 Ame Scanlon APRN, SUPERVISOR AREA #2 [facility], [address] [place] [address] Nurse Practitioner Cardiology 08/23/23 Michael Ahmadi MD [address] [place] [address] Consulting Physician Medical Oncology 07/26/23 documented as of this encounter
--- OUTSIDE RECORDS SUMMARY | 2024-07-28 14:08 | XMS_ITS | Encounter Summary ---
Author Organization [facility] Address [address] [place] [address] Phone Care Team Providers Care Data Management Name Role Phone Irving Jeffries MD Primary Care Provider [phone] Ton Ling APRN, FOREST FIRE LOOKOUT Unavailable [phone] Michael Ahmadi MD Unavailable [phone] Reason for Visit * Auth/Cert (Routine) Specialty Diagnoses / Procedures Referred By Contclay t Referred To Contact Referral ID Status Reason Start Date Expiration Date Visits Re quested Visits Authorized [id number] 1 1 Encounter Details Date Type Department Care Team (Late st Contact Info) Description 08/20/2023 [facility] [address] [place] [address] Tita Cervantes I, RN [place] CASE COMMUNICATION Social History Tobacco Use Types Packs/Day Years [...] answer 08/14/2023 How often do you attend [facility] or mormonism services? Patient unable to answer 08/14/2023 Do [...] Total Score - Questions 1-9 0 07/31 [facility] - Occupational Stress Questionnaire Answer [...] [place] (including now)? Patient unable to answer 08/14/2023 [...] Time 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 07/28/2023 09/04/2023 8:45 AM JOB TRAINING SUPERVISOR Assessment Noted Time PHQ-9 Depression Total Score: 0 08/14/19 24 3:02 PM JOB TRAINING SUPERVISOR documented as of this encounter Care Teams Data Management Relationship Specialty Start Date End Date Irving Jeffries MD [address] [place] [address] PCP - General Internal Medicine 07/16/21 07/04/24 Ton Ling, MANUFACTURING MAINTENANCE MECHANIC, FOREST FIRE LOOKOUT [address] [place] [address] Nurse Practitioner Advanced Practice Nurse 04/24/23 Michael Ahmadi MD [address] [place] [address] Consulting Physician Medical Oncology 07/26/23 documented as of this encounter
--- OUTSIDE RECORDS SUMMARY | 2024-07-28 14:08 | XMS_ITS | Encounter Summary ---
Author Organization [facility] Address [address] [place] [place] [address] Phone Care Team Providers Care Industrial Therapist Name Role Phone Irving Jeffries MD Primary Care Provider Ton Ling SPIRAL GEAR GENERATOR, DEPARTMENT OF NATURAL RESOURCES OFFICER Unavailable Ame Scanlon SPIRAL GEAR GENERATOR, DEPARTMENT OF NATURAL RESOURCES OFFICER Unavailable Michael Ahmadi MD Unavailable [phone] Encounter Details Date Type Department Care Team (Late st Contact Info) Description 08/22/2023 Telephone [facility] [address] [place] [address] Ton Ling, SPIRAL GEAR GENERATOR, DEPARTMENT OF NATURAL RESOURCES OFFICER [address] [place] [address] Social History Tobacco Use Types Packs/Day Years Used Date Smoking Tobacco: Former Cigarettes 2 20 Passive Smoke Exposure: Past Smokeless Tobacco: Never Alcohol Use Standard Drinks/Week Comments Not Currently 0 (1 standard drink = 0.6 oz pur e alcohol) [facility] Utilities Answer Date Recorded [...] How often do you attend chur or jehovah's witness services? Patient unable to answer 08/14/2023 Do [...] Total Score - Questions 1-9 0 07/31 [facility] - Occupational Stress Questionnaire Answer Date [...] slept in a custodial (including now)? Patient unable to answer 08/14/2023 Sexually Active Control Partners Comments Never Sex and Gender Information Value Date Recorded Sex Assigned at Not on file Legal Sex Male 11:18 PM CDT Gender Identity Not on file Sexual Orientation Not on file documented as of this encounter Miscellaneous Notes * Telephone Encounter - Mariza Chaudhry - 08/23/2023 1:14 PM CST Spoke with Lenora, she states she will bring pt tomorrow. SMOKER MACHINE OPERATOR * Telephone Encounter - Mariza Chaudhry - 08/23/2023 10:02 AM CST Left message with Kylah for nurse to call back. SMOKER MACHINE OPERATOR * Telephone Encounter - Ton Ling APRN, DEPARTMENT OF NATURAL RESOURCES OFFICER - 08/22/2023 3:57 PM PIPE SMOKER MACHINE OPERATOR Keep f/u as scheduled. Can we get him in to pull some urine from his cath to send for culture to rule out any infection. His ua from the ER looks like it should have reflexed to culture, but I dont see that it did SMOKER MACHINE OPERATOR * Telephone Encounter - Mariza Chaudhry - 08/22/2023 1:37 PM CST Hospital follow up scheduled on 09-11-23; Pts has had cath placed here at [facility] on 08-18[facility], Pt has stopped blood thinner but is still having some bleeding. Urine in cath bag is a pink in color but urine is coming down the tube is yellow. Please advise. SMOKER MACHINE OPERATOR documented in this encounter Plan of Treatment Not on file documented as of this encounter Visit Diagnoses Not on filedocumented in this encounter Additional Health Concerns 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 07/28/2023 09/04/2023 8:45 AM PIPE SMOKER MACHINE OPERATOR Assessment Noted Time PHQ-9 Depression Total Score: 0 08/14/19 3:02 PM PIPE SMOKER MACHINE OPERATOR documented as of this encounter Care Teams Industrial Therapist Relationship Specialty Start Date End Date Irving Jeffries MD [address] [place] [address] PCP - General Internal Medicine 07/16/21 07/04/24 Ton Ling APRN, DEPARTMENT OF NATURAL RESOURCES OFFICER [address] [place] [address] Nurse Practitioner Advanced Practice Nurse 04/24/23 Ame Scanlon APRN, DEPARTMENT OF NATURAL RESOURCES OFFICER #2 [facility], [facility] [address] [place] [address] Nurse Practitioner Cardiology 08/23/23 Michael Ahmadi MD [address] [place] [address] Consulting Physician Medical Oncology 07/26/23 documented as of this encounter
--- OUTSIDE RECORDS SUMMARY | 2024-07-28 14:08 | XMS_ITS | Encounter Summary ---
Author Organization [facility] Address [address] [place] [address] Phone Care Team Providers Care Candy Starch Mold Printer Name Role Phone Irving Jeffries MD Primary Care Provider [phone] Ton Ling APRN, [facility] Unavailable [phone] Michael Ahmadi MD Unavailable [phone] Reason for Visit * Auth/Cert (Routine) Specialty Diagnoses / Procedures Referred By Contclay t Referred To Contact Referral ID Status Reason Start Date Expiration Date Visits Re quested Visits Authorized [id number] 1 1 Encounter Details Date Type Department Care Team (Late st Contact Info) Description 08/19/2023 [facility] [address] [place] [address] Tita Cervantes I RN [place] SN-CLINICAL SUPPORT/TRIAGE Social History Tobacco Use Types Packs/Day Years Used Date Smoking Tobacco: Former Cigarettes 2 20 Passive Smoke Exposure: Past Smokeless Tobacco: Never Alcohol Use Standard Drinks/Week Comments Not Currently 0 (1 standard drink = 0.6 oz pur e alcohol) [facility] Utilities Answer Date Recorded In [...] How often do you attend chur or temple services? Patient unable to answer 08/14/2023 Do [...] Total Score - Questions 1-9 0 07/31 [facility] - Occupational [...] slept in a alf (including now)? Patient unable to answer 08/14/2023 [...] Time 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 07/28/2023 09/04/2023 8:45 AM FINANCE INTERN Assessment Noted Time PHQ-9 Depression Total Score: 0 08/14/19 24 3:02 PM FINANCE INTERN documented as of this encounter Care Teams Candy Starch Mold Printer Relationship Specialty Start Date End Date Irving Jeffries MD [address] [place] [address] PCP - General Internal Medicine 07/16/21 07/04/24 Ton Ling BRIDGE LEVERMAN, DIAL EQUIPMENT ENGINEER [address] [place] [address] Nurse Practitioner Advanced Practice Nurse 04/24/23 Michael Ahmadi MD [address] [place] [address] Consulting Physician Medical Oncology 07/26/23 documented as of this encounter
--- OUTSIDE RECORDS SUMMARY | 2024-07-28 14:08 | XMS_ITS | Encounter Summary ---
Author Organization [facility] Address [address] [place] [address] Phone Care Team Providers Care Seismic Prospecting Supervisor Name Role Phone Irving Jeffries MD Primary Care Provider Ton Ling ORE BRIDGE OPERATOR, PHOTOGRAPHY SALES ASSOCIATE Unavailable [phone] Ame Scanlon ORE BRIDGE OPERATOR, PHOTOGRAPHY SALES ASSOCIATE Unavailable + [phone] Michael Ahmadi MD Unavailable Reason for Visit * Auth/Cert (Routine) Specialty Diagnoses / Procedures Referred By Geeta t Referred To Contact Referral ID Status Reason Start Date Expiration Date Visits Re quested Visits Authorized [id number] 1 1 Encounter Details Date Type Department Care Team (Late st Contact Info) Description 08/23/2023 1:00 PM VEST PRESSER [facility] [address] [place] [address] Mere Puckett, HAZARDOUS WASTE REMOVER PT - HOME VISIT Social History Tobacco [...] How often do you attend chur or samaritan services? Patient unable to answer 08/14/2023 Do [...] Total Score - Questions 1-9 0 07/31 [facility] - Occupational Stress Questionnaire Answer [...] in a group home (including now)? Patient unable to answer 08/14/2023 Sexually Active Control Partners Comments Never Sex and Gender Information Value Date Recorded Sex Assigned at Not on file Legal Sex Male 11:18 PM CDT Gender Identity Not on file Sexual Orientation Not on file documented as of this encounter Last Filed Vital Signs Vital Sign Reading Time Taken Comments Blood Pressure 120/60 08/23/2023 1:53 PM VEST PRESSER Pulse 82 08/23/2023 1:53 PM VEST PRESSER Temperature 36.4 ??C (97.5 ??F) 08/23/2023 1:53 PM CS T Respiratory Rate 18 08/23/2023 1:53 PM VEST PRESSER Oxygen Saturation 98% 08/23/2023 1:53 PM VEST PRESSER Inhaled Oxygen Concentration - - Weight - - Height - - Body Mass Index - - documented in this encounter Plan of Treatment Not on file documented as of this encounter Visit Diagnoses Not on filedocumented in this encounter Additional Health Concerns 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 07/28/2023 09/04/2023 8:45 AM VEST PRESSER Assessment Noted Time PHQ-9 Depression Total Score: 0 08/14/19 3:02 PM VEST PRESSER documented as of this encounter Home Health Visit - Care Plan Visit Details Visit Type -PT - HOME VISIT Discipline -Physical Therapy Problems Problem Description Start Date Status Goals Interve ntions THERAPY DISEASE MANAGEMENT (O) Disciplines: Physical Therapy 08/10/2023 Active - 1 problem intervention scheduled/document ed in this visit PT COMPREHENSIVE Disciplines: Physical Therapy 08/10/2023 Active 4 goals linked to scheduled/documente d interventions 4 goal interventions scheduled/document ed in this visit Goals Goal Associated Problem Outcome Goal Met? Visit Notes PT Caregiver Assist/Safety Description: Short Term Goal: Caregiver will be able to safely demonstrate patient assistance with home exercise program, transfers, ambulation and stair negotiation in order to prevent falls. To be met by 09/16/23. PT COMPREHENSIVE No PT Ambulation Description: Short Term Goal: Patient will ambulate with supervision 100 feet with use of 2 wheel walker, over even surfaces with the following improved gait characteristics no loss of balance in order to safely leave home for appointments. To be met by 08/31/23. Skilled Nursing Goal: Patient will ambulate independently 150 feet with use of straight cane, over even surfaces and uneven surfaces with the following improved gait characteristics no loss of balance in order to safely leave home for appointments. To be met by 09/16/23. PT COMPREHENSIVE Therapy: Goal partially met No PT Transfers Description: Skilled Nursing Goal: Patient will perform sit to stand/pivot transfers independently with use of device as needed ; in order to be safe in home. To be met by 09/16/23. PT COMPREHENSIVE Therapy: Goal partially met No PT HEP Description: Paperhanger Assistant Goal: Patient and/or caregiver will with supervision with final HEP of strengthening, balance training and conditioning in order to continue preventing functional decline after discharge from home care. To be met by 09/16/23. PT COMPREHENSIVE No Interventions Intervention Associated Problem/Goal Status Variance Visit Notes Therapy Depression (O) Description: Assess and monitor for signs and symptoms of depression. Problem:THERAPY DISEASE MANAGEMENT (O) Completed Patient shows signs of depression yes Symptoms reported to physician no aware of situation PT Caregiver Assist/Safety Description: Instruct caregiver how to safely assist patient. Problem:PT COMPREHENSIVE Goal:PT Caregiver Assist/Safety Completed Caregiver training provided to Lenora regarding: ambulation and stair negotiation Caregiver response to training: verbalize understanding. Progress toward goal: progressing near achieval PT Ambulation Description: Provide gait training for increased safety and efficiency. Progress per patient tolerance and safety. Problem:PT COMPREHENSIVE Goal:PT Ambulation Completed Patient ambulated with supervision 200 feet with use of no device. WBAT bilateral lower extremity over even surfaces with the following gait characteristics fast pacing, step through.no balance losses observed Skills provided: Safety instruction go slow use cane or walker if feeling unsteady . Tolerance to activity increased gait distance and decreased assistance required. O2 sats stayed 97% following 200' of gait Instruction provided to Patient. Response verbalize understanding and return demonstration. Progress toward goal: met for functional IADL's PT Transfers Description: Instruct in proper safety and transfer technique. Problem:PT COMPREHENSIVE Goal:PT Transfers Completed Transfer training provided this date Sit to/from stand . Level of support required for safety independently. Assistive devices used: none Skill provided Safety instructions go slow push up/reach back and feel bed and chair edges on back of legs before sitting. Tolerance to activity good Instruction provided to Patient. Response verbalize understanding and return demonstration. Progress toward goal: met PT HEP Progression Description: Instruct on home exercise program. Progress as tolerated. Problem:PT COMPREHENSIVE Goal:PT HEP Completed Exercises performed ascend/descended 19 steps x 2 with foot over foot fast pacing demonstrated. Patient held one rail and catheter bag. No toe catching noted. O2 sats stayed above 95% following on room air and patient denied SOB. Plan to transition patient back to upstairs room when catheter is removed permanently as patient can now demonstrate safe stair ascend/descend at prior level of function Instruction provided to Patient. Go slow and breath deep into nose holding rail at all times when ascending/descending steps. Response verbalize understanding and ongoing. documented in this encounter Care Teams Seismic Prospecting Supervisor Relationship Specialty Start Date End Date Irving Jeffries MD [address] [place] [address] PCP - General Internal Medicine 07/16/21 07/04/24 Ton Ling APRN, PHOTOGRAPHY SALES ASSOCIATE [address] [place] [address] Nurse Practitioner Advanced Practice Nurse 04/24/23 Ame Scanlon APRN, PHOTOGRAPHY SALES ASSOCIATE [address] [facility], [address] [place] [address] Nurse Practitioner Cardiology 08/23/23 Michael Ahmadi MD [address] [place] [address] Consulting Physician Medical Oncology 07/26/23 documented as of this encounter
--- OUTSIDE RECORDS SUMMARY | 2024-07-28 14:08 | XMS_ITS | Encounter Summary ---
Author Organization [facility] Address [address] [place] [address] Phone Care Team Providers Care Machined Parts Metal Sprayer Name Role Phone Irving Jeffries MD Primary Care Provider [phone] Ton Ling PHYSICIAN RECRUITER, DIRECTOR HEALTH Unavailable Ame Scanlon PHYSICIAN RECRUITER, DIRECTOR HEALTH Unavailable + [phone] Michael Ahmadi MD Unavailable [phone] Reason for Visit * Reason Comments Urine Culture Encounter Details Date Type Department Care Team (Latest Contact Info) Description 08/24/2023 9:00 AM FORMING FIXER Clinical Support [facility] [address] [place] [address] NurseJuan J Urology Hematuria, unspecified type (Primary Dx) Discharge Disposition: Discharged to home [...] How often do you attend orthodox or jainism serv ices? Patient declined 09/03/2023 [...] Total Score - Questions 1-9 0 07/31 [facility] [...] - - Temperature - - Respiratory Rate 20 08/24/2023 8:50 AM FORMING FIXER Oxygen Saturation - - Inhaled Oxygen Concentration - - Weight 86.2 kg (190 lb) 08/24/2023 8:50 AM FORMING FIXER Height 182.9 cm (6') 08/24/2023 8:50 AM FORMING FIXER Body Mass Index 25.77 08/24/2023 8:50 AM FORMING FIXER documented in this encounter Functional Status * [...] one occasion? Patient declined 09/03/2023 6:16 AM Norman Castellanos RN documented as of this encounter Procedure Notes * Mariza Chaudhry - 08/24/2023 9:00 AM CST Pt came into office for a urine sample for a urine culture per Poli Moreno. Urine sample obtained via sterile technique. Pt tolerated well. documented in this encounter Plan of Treatment Not on file documented as of this encounter Procedures Procedure Name Priority Date/Time Associated Diagnosis Comments CULTURE, URINE Routine 08/24/2023 9:36 AM FORMING FIXER Hematuria, unspecified type documented in this encounter Results * CULTURE, URINE (08/24/2023 9:36 AM FORMING FIXER) CULTURE RESULTS MIXED GROWTH OF ONE OR MORE DISTAL URETHRAL CONTAMINANTS 08/25/2023 4:18 PM FORMING FIXER [facility] Culture (Urine Bladder) Non-Phlebotomy Collection / Unknown 08/24/2023 9:36 AM FORMING FIXER 08/24/2023 9:36 AM FORMING FIXER us Ton Ling PHYSICIAN RECRUITER, DIRECTOR HEALTH MICROBIOLOGY - GENERAL ORDERABLES Final Result [facility] [address] [place] [address], documented in this encounter Visit Diagnoses Diagnosis Hematuria, unspecified type- Primary documented in this encounter Additional Health Concerns 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 07/28/2023 09/04/2023 8:45 AM FORMING FIXER Assessment Noted Time PHQ-9 Depression Total Score: 0 08/14/19 3:02 PM FORMING FIXER documented as of this encounter Care Teams Machined Parts Metal Sprayer Relationship Specialty Start Date End Date Irving Jeffries MD [address] [place] [address] PCP - General Internal Medicine 07/16/21 07/04/24 Ton Ling APRN, DIRECTOR HEALTH [address] [place] [address] Nurse Practitioner Advanced Practice Nurse 04/24/23 Ame Scanlon APRN, DIRECTOR HEALTH [address] [facility] [address] [place] [address] Nurse Practitioner Cardiology 08/23/23 Michael Ahmadi MD [address] [place] [address] Consulting Physician Medical Oncology 07/26/23 documented as of this encounter
--- OUTSIDE RECORDS SUMMARY | 2024-07-28 14:08 | XMS_ITS | Encounter Summary ---
Author Organization [facility] Address [address] [place] [address] Phone Care Team Providers Care Local Driver Name Role Phone Irving Jeffries MD Primary Care Provider [phone] Ton Ling APRN, [facility] Unavailable [phone] Michael Ahmadi MD Unavailable [phone] Reason for Visit * Auth/Cert (Routine) Specialty Diagnoses / Procedures Referred By Contclay t Referred To Contact Referral ID Status Reason Start Date Expiration Date Visits Re quested Visits Authorized [id number] 1 1 Encounter Details Date Type Department Care Team (Late st Contact Info) Description 08/11/2023 [facility] [address] [place] [address] Bea Clark RN [place] TELEPHONE ENCOUNTER Social History Tobacco Use Types Packs/Day Years Used Date Smoking Tobacco: Former Cigarettes 2 20 Smokeless Tobacco: Never Alcohol Use Standard Drinks/Week Comments Not Currently 0 (1 standard drink = 0.6 oz pur e alcohol) [facility] Utilities Answer Date Recorded In the past 12 months has [employer], gas, oil, or water [employer] threatened to shut off services in your home? Patient declined 07/28/2023 Social Connection and Isolation Panel [NHANES] A nswer Date Recorded In a typical week, how many times do you talk on the phone with family, friends, or neighbors? Patient declined 07/28/2023 How often do you get togethe r with friends or relatives? Patient declined 07/28/2023 How often do you attend mu-ism or sikhism serv ices? Patient declined 07/28/2023 Do you belong to any clubs o r organizations such as mu-ism groups, unions, fraternal or athletic groups, or school groups? Patient declined 07/28/2023 How often do you attend meet ings of the clubs or organizations you belong to? Patient declined 07/28/2023 Are you , , di vorced, , never , or living with a partner? Patient declined 07/28/2023 AUDIT-C Answer Date Recorded Q1: How often do you have a drink containing alc ohol? Patient declined 07/28/2023 Q2: How many drinks containi ng alcohol do you have on a typical day when you are drinking? Patient declined 07/28/2023 Q3: How often do you have si x or more drinks on one occasion? Patient declined 07/28/2023 Overall Financial Resource Strain (CARDIA) Answe r Date Recorded How hard is it for you to pa y for the very basics like food, housing, medical care, and heating? Patient declined 07/28/2023 [facility] - Occupational Stress Questionnaire Answer Date Recorded Do you feel stress - tense, restless, nervous, or anxious, or unable to sleep at night because your mind is troubled all the time - these days? Patient declined 07/28/2023 Exercise Vital Sign Answer Date Recorde d On average, how many days pe r week do you engage in moderate to strenuous exercise (like a brisk walk)? Patient declined On average, how many minutes do you engage in exercise at this level? Patient declined 07/28/2023 Hunger Vital Sign Answer Date Recorded Within the past 12 months, y ou worried that your food would run out before you got the money to buy more. Patient declined Within the past 12 months, t he food you bought just didn't last and you didn't have money to get more. Patient declined PRAPARE - Transportation Answer Date Re corded In the past 12 months, has l ack of transportation kept you from medical appointments or from getting medications? Patient declined 07/28/2023 In the past 12 months, has l ack of transportation kept you from meetings, work, or from getting things needed for daily living? Patient declined 07/28/2023 Housing Stability Vital Sign Answer Matt e Recorded In the last 12 months, was t here a time when you were not able to pay the mortgage or rent on time? Patient declined 07/28/20 23 In the last 12 months, how many places have you lived? 1 07/28/2023 In the last 12 months, was t here a time when you did not have a steady place to sleep or slept in a prison (including now)? Patient declined 07/28/2023 Sex and Gender Information Value Date Recorded [...] Time 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 07/28/2023 09/04/2023 8:45 AM TRANSFUSION AIDE documented as of this encounter Care Teams Local Driver Relationship Specialty Start Date End Date Irving Jeffries MD [address] [place] [address] PCP - General Internal Medicine 07/16/21 07/04/24 Ton Ling, FORENSIC COMPUTER EXAMINER, ART DEALER [address] [place] [address] Nurse Practitioner Advanced Practice Nurse 04/24/23 Michael Ahmadi MD [address] [place] [address] Consulting Physician Medical Oncology 07/26/23 documented as of this encounter
--- OUTSIDE RECORDS SUMMARY | 2024-07-28 14:08 | XMS_ITS | Encounter Summary ---
Author Organization [facility] Address [address] [place] [address] Phone Care Team Providers Care Computer Mechanic Name Role Phone Irving Jeffries MD Primary Care Provider Ton Ling APRN, [facility] Unavailable [phone] Michael Ahmadi MD Unavailable [phone] Reason for Visit * Reason Comments Blood in Urine Encounter Details Date Type Department Care Team (Late st Contact Info) Description 08/18/2023 10:59 PM CLERK CARRIER - 08/19/2023 4:28 AM [facility] Emergency [facility] Emergency [address] [place] [address] Edmundo Parsons MD [address] [place] [address] Urinary retention Discharge Disposition: Discharged to home or Selfcare Social History Tobacco Use Types Packs/Day Years Used Date Smoking Tobacco: Former Cigarettes 2 20 Passive Smoke Exposure: Past Smokeless Tobacco: Never Alcohol Use Standard Drinks/Week Comments Not Currently 0 (1 standard drink = 0.6 oz pur e alcohol) [facility] Utilities Answer Date Recorded In the [...] How often do you attend chur or hinduism services? Patient unable to answer 08/14/2023 Do you belong to any clubs o r organizations such as samaritan groups, unions, fraternal or athletic groups, or [...] Total Score - Questions 1-9 0 07/31 [facility] - Occupational Stress Questionnaire Answer Date Recorded [...] in a skilled nursing (including now)? Patient unable to answer 08/14/2023 Sexually Active Control Partners Comments Never Sex and Gender Information Value Date Recorded Sex Assigned at Not on file Legal Sex Male 11:18 PM CDT Gender Identity Not on file Sexual Orientation Not on file documented as of this encounter Last Filed Vital Signs Vital Sign Reading Time Taken Comments Blood Pressure 118/64 08/19/2023 4:15 AM CLERK CARRIER Pulse 78 08/19/2023 4:15 AM CLERK CARRIER Temperature 36.3 ??C (97.4 ??F) 08/18/2023 10:[address] Respiratory Rate 18 08/19/2023 4:15 AM CLERK CARRIER Oxygen Saturation 98% 08/19/2023 4:15 AM CLERK CARRIER Inhaled Oxygen Concentration - - Weight 86.2 kg (190 lb) 08/18/2023 10:53 PM CLERK CARRIER Height 182.9 cm (6') 08/18/2023 10:53 PM CLERK CARRIER Body Mass Index 25.77 08/18/2023 10:53 PM CLERK CARRIER documented in this encounter Discharge Instructions * Discharge Instructions* Edmundo Parsons MD - 08/19/2023 4:11 AM CLERK CARRIER Continue to monitor all bloody your urine catheter is. Returns emergency room if you feel lightheaded or notice palpitations of your heart. Continue your follow-up with urologist in 3 days. K CARRIER * Attachments The following attachments cannot be sent through Care Everywhere. * Thrombocytopenia ([place]) * Acute Urinary Retention Male ([place]) * Hematuria Adult ([place]) documented in this encounter Medications at Time of Discharge acetaminophen (TYLENOL) 325 MG Tablet Take 2 Tablets by mouth every 6 hours as needed for Mild or more severe pain. amLODIPine (NORVASC) 10 MG Tablet Take 1 Tablet by mouth daily. 30 Tablet 11 02/21/2023 4 Cephalexin 500 MG Tablet Take by mouth. 4 finasteride (PROSCAR) 5 MG TabletIndications :Elevated PSA,Benign prostatic hyperplasia with urinary obstruction Take 1 Tablet by mouth daily. 90 Tablet 1 08/15/2023 4 HYDROCHLOROTHIAZI DE PO Take by mouth. 4 LOSARTAN POTASSIUM PO Take by mouth. 09/03/19 2 4 MELOXICAM PO Take by mouth. 08/30/19 2 4 metoprolol tartrate (LOPRESSOR) 25 MG Tablet Take 1 Tablet by mouth 2 times daily for 90 days. 180 Tablet 08/07/2023 4 omeprazole (PriLOSEC) 20 MG CAPSULE DELAYED RELEASE Take 1 Capsule by mouth in the morning and at bedtime. 30 Capsule 7 07/14/2023 4 rivaroxaban (XARELTO) 15 MG TabletIndications :Atrial Fibrillation Take 1 Tablet by mouth daily. Take with food. Indications: Atrial Fibrillation 30 Tablet 5 08/14/2023 4 SITagliptin Phosphate (JANUVIA PO) Take by mouth. 09/03/19 2 4 tamsulosin (FLOMAX) 0.4 MG CapsuleIndication s:Urinary retention,Benign prostatic hyperplasia with urinary obstruction Take 1 Capsule by mouth in the morning and at bedtime. 60 Capsule 1 08/15/2023 4 documented as of this encounter ED Notes * Dwayne Lorenzo RN - 08/19/2023 4:27 AM CST Patient discharged. Discharge instructions and patient educational material reviewed with patient; questions and concerns addressed; patient verbalizes understanding, using teach back. Patient was given 0 prescriptions. Patient discharged per ambulatory mode with self as responsible green party. SL D/C'ed with Errol cath intact. K CARRIER * Dwayne Lorenzo RN - 08/19/2023 3:30 AM CST Patient is resting in room with call light at bedside. Patient informed about wait time and verbalizes understanding. Patient denies needs at this time and verbalizes understanding that RN will complete hourly rounding. K CARRIER * Dwayne Lorenzo RN - 08/19/2023 2:30 AM CST Patient is resting in room with call light at bedside. Patient informed about wait time and verbalizes understanding. Patient denies needs at this time and verbalizes understanding that RN will complete hourly rounding. K CARRIER * Dwayne Lorenzo RN - 08/19/2023 1:30 AM CST Patient is resting in room with call light at bedside. Patient informed about wait time and verbalizes understanding. Patient denies needs at this time and verbalizes understanding that RN will complete hourly rounding. K CARRIER * Dwayne Lorenzo RN - 08/19/2023 12:30 AM CST Patient is resting in room with call light at bedside. Patient informed about wait time and verbalizes understanding. Patient denies needs at this time and verbalizes understanding that RN will complete hourly rounding. K CARRIER Dwayne Mathis RN - 08/18/2023 11:40 PM CST Pt medicated per provider orders. Pt educated on intended effects and side effects of medication and verbalized understanding, able to provide teach back of education. K CARRIER * Edmundo Parsons MD - 08/18/2023 11:38 PM CST Chief Complaint Patient presents with ??? Blood in Urine Patient is a 77-year-old male presents emergency room with hematuria. [facility] had developed urinary retention so a catheter was placed. He does have history of hematuria with the catheter in place and was advised to stop Xarelto. Is uncertain why he is onthis anticoagulant. The bleeding improved and he had his catheter removed 2 days ago. He has been currently on Xarelto sats 08/14 and started bleeding again today when he urinates. He states he has not had any difficulty urinating and has not noticed any blood clots when he does urinate. He has not had any vomiting or diarrhea. He has not had any trauma. No current facility-administered medications for this encounter. Current Outpatient Medications Medication Sig Dispense Refill ??? acetaminophen (TYLENOL) [...] and at bedtime. 30 Capsule 7 ??? rivaroxaban (XARELTO) 15 MG Tablet Take 1 Tablet by mouth daily. Take with food. Indications: Atrial Fibrillation 30 Tablet 5 ??? SITagliptin Phosphate (JANUVIA PO) Take by mouth. ??? tamsulosin (FLOMAX) 0.4 MG Capsule Take 1 Capsule by mouth in the morning and at bedtime. 60 Capsule 1 No Known Allergies Past Medical History Positives Diagnosis Date ??? Arthritis ??? Prostate cancer (HCC) ??? Schizophrenia (HCC) ??? Stroke (HCC) No past surgical history on file. [...] answer Stress: Patient Unable To Answer (08/14/2023) [place] [facility] - Occupational Stress Questionnaire ??? Feeling of Stress : Patient unable to answer Social Integration: Patient Unable To Answer (08/14/2023) Social Connection and Isolation Panel [NHANES] ??? Frequency of Communication with Friends and Family: Patient unable to answer ??? Frequency of Social Gatherings with Friends and Family: Patient unable to answer ??? Attends Gnosticism Services: Patient unable to answer ??? Active [...] Last Year: Patient unable to answer BP 122/60 Pulse 85 Temp 97.4 ??F (36.3 ??C) (Tympanic) Resp 18 Ht 6' (1.829 m) Wt 190 lb (86.2 kg) SpO2 97% BMI 25.77 kg/m?? Review of Systems Constitutional: Negative for activity change, appetite change, chills, diaphoresis and fever. HENT: Negative for ear pain, sinus pressure, sinus pain and trouble swallowing. Eyes: Negative for visual disturbance. Respiratory: Negative for apnea, choking and chest tightness. Cardiovascular: Negative for chest pain. Gastrointestinal: Negative for abdominal pain, diarrhea, nausea and vomiting. Endocrine: Negative for cold intolerance and heat intolerance. Genitourinary: Positive for hematuria. Negative for decreased urine volume, difficulty urinating, dysuria, flank pain, frequency and testicular pain. Musculoskeletal: Negative for back pain and neck pain. Neurological: Negative for weakness and light-headedness. All other systems reviewed and are negative. Physical Exam Vitals and nursing note reviewed. Constitutional: General: He is not in acute distress. Appearance: He is well-developed. He is not diaphoretic. HENT: Head: Normocephalic and atraumatic. Eyes: Conjunctiva/sclera: Conjunctivae normal. Pupils: Pupils are [...] oriented to person, place, and time. Psychiatric: Behavior: Behavior normal. Thought Content: Thought content normal. Judgment: Judgment normal. Procedures Recent Results (from the past 24 hour(s)) CMP (Comprehensive Metabolic Panel) Result Value Ref Range SODIUM 139 136 - 145 mmol/L POTASSIUM 4.1 3.5 - 5.1 mmol/L CHLORIDE 107 98 - 107 mmol/L CO2, VENOUS 23 22 - 30 mmol/L ANION GAP 13.1 <18.0 mmol/L GLUCOSE 96 70 - 99 mg/dL BUN 13 8 - 26 mg/dL CREATININE, BLOOD 0.79 0.70 - 1.30 mg/dL BUN/CREATININE RATIO 16 12 - 20 ratio TOTAL PROTEIN 5.9 (L) 6.3 - 8.2 g/dL ALBUMIN 3.4 (L) 3.5 - 5.0 g/dL A/G RATIO 1.4 1.0 - 2.2 CALCIUM 8.6 (L) 8.7 - 10.5 mg/dL T BILI 0.2 0.2 - 1.2 mg/dL SGOT (AST) 10 5 - 34 U/L SGPT (ALT) 21 0 - 55 U/L ALKALINE PHOSPHATASE 62 40 - 150 U/L GFR, ESTIMATED >60 >=60 GFR, EST. >60 >=60 GFR, EST. NONAFRICAN >60 >=60 Protime (PT or Prothrombin Time) [id number] Result Value Ref Range PROTIME-PATIENT 17.7 (H) 11.6 - 14.8 sec INR 1.4 (H) 0.9 - 1.2 APTT (PTT) Result Value Ref Range PTT 33 24 - 36 sec CBC with Auto Differential Result Value Ref Range WBC 7.47 4.00 - 12.00 10(3)/mcL RBC 3.41 (L) 4.40 - 5.80 10(6)/mcL HEMOGLOBIN (HGB) 10.3 (L) 13.0 - 16.5 g/dL HEMATOCRIT (HCT) 32.1 (L) 38.0 - 50.0 % MCV 94.1 82.0 - 96.0 fL MCH 30.2 26.0 - 32.0 pg MCHC 32.1 31.0 - 36.0 g/dL PLATELET COUNT 43 (L) 140 - 440 10(3)/mcL RDW 15.0 11.8 - 15.5 % MPV NEUTROPHILS 68.5 (H) 40.0 - 68.0 % LYMPHOCYTES 20.1 19.0 - 49.0 % MONOCYTES 11.1 3.0 - 13.0 % EOSINOPHILS 0.0 0.0 - 8.0 % BASOPHILS 0.3 0.0 - 1.0 % ABSOLUTE NEUTROPHILS 5.12 1.40 - 5.30 10(3)/mcL ABSOLUTE LYMPHOCYTES 1.50 0.90 - 3.30 10(3)/mcL ABSOLUTE MONOCYTES 0.83 0.10 - 0.90 10(3)/mcL ABSOLUTE EOSINOPHIL 0.00 0.00 - 0.50 10(3)/mcL ABSOLUTE BASOPHILS 0.02 0.00 - 0.10 10(3)/mcL NRBC PER 100 WBC 0 RESULTS ARE CONSISTENT WITH PERIPHERAL SMEAR REVIEW Yes URINALYSIS REFLEX IF INDICATED BY ABNORMAL RESULTS Result Value Ref Range SPECIFIC GRAVITY 1.010 1.003 - 1.030 URINE PH 7.0 5.0 - 9.0 WBC ESTERASE Negative Negative NITRITE Negative Negative PROTEIN, RANDOM URINE 500 mg/dL (A) Negative URINE GLUCOSE, QUAL Negative Negative URINE KETONES 5 mg/dL (A) Negative UROBILINOGEN Normal Normal mg/dL URINE BLOOD 250 /uL (A) Negative yoni/ul URINALYSIS COLOR Bloody URINALYSIS CLARITY Bloody WBC (Urine) 11-20 (A) Negative, 0-5 /hpf URINE RBC'S Packed (A) Negative, 0-2 /hpf EPITHELIAL CELLS Occasional /lpf BACTERIA, URINE Few (A) Negative /hpf URINE MUCOUS Few Imaging Results None Medical Decision Making Amount and/or Complexity of Data Reviewed Labs: ordered. Decision-making details documented in ED Course. Radiology: ordered. Decision-making details documented in ED Course. Clinical Impression 1. Gross hematuria 2. Urinary retention 3. Thrombocytopenia (HCC) Disposition: Discharge Patient presents emergency room with hematuria. He is currently on Xarelto. Labs were obtained cameback with urinalysis showing packed red blood cells. INR was 1.4 and PTT normal at 33. CBC had hemoglobin 10.3 which is down 3 points from his visit on 08/09/23. Patient's platelet count was only 43,000. Patient was unable to urinate in the emergency room and had over 800 mL of urine in his bladder. Hewas given a Barakat catheter with strain the urine without any clot formation. He was fairly dark. Hewill take and continue wearing the Barakat catheter. He will also monitor the amount of blood presentin the catheter and is to return if he has any signs of significant anemia such as palpitations or l ightheadedness or excessive heart racing. Patient has similar experienced in the past which improved after stopping the Xarelto. K CARRIER * Anastasiya Manrique RN - 08/18/2023 10:57 PM CST Patient presents to triage via wheelchair with complaint of blood in his urine x1 yesterday and x2 today. States he had a barakat catheter, but had it taken out at the urologist on Monday (4 days JAVA LEAD ARCHITECT).Did not have any bleeding until yesterday. Alert and oriented x4. Denies any pain. Respirations nonlabored. K CARRIER documented in this encounter Plan of Treatment Not on file documented as of this encounter Procedures Procedure Name Priority Date/Time Associated Diagnosis Comments EKG SCAN 09/03/2023 12:00 AM CLERK CARRIER URINALYSIS REFLEX IF INDICATED BY ABNORMAL RESULTS STAT 08/19/2023 1:14 AM CLERK CARRIER CBC WITH AUTO DIFFERENTIAL STAT 08/18/2023 11:36 PM CLERK CARRIER APTT (PTT) STAT 08/18/2023 11:36 PM CLERK CARRIER PROTIME (PT) (PROTHROMBIN TIME) STAT 08/18/2023 11:36 PM CLERK CARRIER CMP (COMPREHENSIVE METABOLIC PANEL) STAT 08/18/2023 11:36 PM CLERK CARRIER COMPLETE BLOOD COUNT (CBC) WITH DIFF STAT 08/18/2023 11:36 PM CLERK CARRIER documented in this encounter Results * EKG SCAN (09/03/2023 12:00 AM CLERK CARRIER) 09/03/2023 us Provider Scan IMG ECG ORDERABLES Final Result RESULTING AGENCY * (ABNORMAL) URINALYSIS REFLEX IF INDICATED BY ABNORMAL RESULTS (08/19/2023 1:14 AM CLERK CARRIER) SPECIFIC GRAVITY 1.010 1.003 - 1.030 08/19/2023 2:28 AM CLERK CARRIER [facility] URINE PH 7.0 5.0 - 9.0 08/19/2023 2:28 AM CLERK CARRIER [facility] WBC ESTERASE Negative Negative 08/19/2023 2:28 AM CLERK CARRIER [facility] NITRITE Negative Negative 08/19/2023 2:28 AM CLERK CARRIER [facility] PROTEIN, RANDOM URINE 500 mg/dL(A) Negative 08/19/2023 2:28 AM CLERK CARRIER [facility] URINE GLUCOSE, QUAL Negative Negative 08/19/2023 2:28 AM CLERK CARRIER [facility] URINE KETONES 5 mg/dL(A) Negative 08/19/2023 2:28 AM CLERK CARRIER [facility] UROBILINOGEN Normal Normal mg/dL 08/19/2023 2:28 AM CLERK CARRIER [facility] URINE BLOOD 250 /uL(A) Negative yoni/ul 08/19/2023 2:28 AM CLERK CARRIER [facility] URINALYSIS COLOR Bloody 08/19/2023 2:28 AM CLERK CARRIER [facility] URINALYSIS CLARITY Bloody 08/19/2023 2:28 AM CLERK CARRIER [facility] WBC (Urine) 11-20(A) Negative, 0-5 /hpf 08/19/2023 2:28 AM [facility] URINE RBC'S Packed(A) Negative, 0-2 /hpf 08/19/2023 2:28 AM CLERK CARRIER [facility] EPITHELIAL CELLS Occasional /lpf 08/19/2023 2:28 AM CLERK CARRIER [facility] BACTERIA, URINE Few(A) Negative /hpf 08/19/2023 2:28 AM CLERK CARRIER [facility] URINE MUCOUS Few 08/19/2023 2:28 AM [facility] Urine URINE SPECIMEN COLLECTION, CLEAN CATCH / Unknown Non-Phlebotomy Collection / Unknown 08/19/2023 1:14 AM CLERK CARRIER 08/19/2023 1:59 AM CLERK CARRIER Narrative [facility] - 08/19/2023 2:28 AM CLERK CARRIER Macroscopic performed on centrifuged urine us Edmundo Parsons MD URINE ORDERABLES Final Re sult [facility] [address] [place] [address] * (ABNORMAL) CBC with Auto Differential (08/18/2023 11:36 PM CLERK CARRIER) WBC 7.47 4.00 - 12.00 10(3)/mcL 08/19/2023 12:42 AM CLERK CARRIER [facility] RBC 3.41(L) 4.40 - 5.80 10(6)/mcL 08/19/2023 12:42 AM [facility] HEMOGLOBIN (HGB) 10.3(L) 13.0 - 16.5 g/dL 08/19/2023 12:42 AM [facility] HEMATOCRIT (HCT) 32.1(L) 38.0 - 50.0 % 08/19/2023 12:42 AM [facility] MCV 94.1 82.0 - 96.0 fL 08/19/2023 12:42 AM [facility] MCH 30.2 26.0 - 32.0 pg 08/19/2023 12:42 AM [facility] MCHC 32.1 31.0 - 36.0 g/dL 08/19/2023 12:42 AM [facility] PLATELET COUNT 43(L) 140 - 440 10(3)/mcL 08/19/2023 12:42 AM [facility] RDW 15.0 11.8 - 15.5 % 08/19/2023 12:42 AM [facility] MPV 08/19/2023 12:42 AM [facility] NEUTROPHILS 68.5(H) 40.0 - 68.0 % 08/19/2023 12:42 AM [facility] LYMPHOCYTES 20.1 19.0 - 49.0 % 08/19/2023 12:42 AM [facility] MONOCYTES 11.1 3.0 - 13.0 % 08/19/2023 12:42 AM [facility] EOSINOPHILS 0.0 0.0 - 8.0 % 08/19/2023 12:42 AM [facility] BASOPHILS 0.3 0.0 - 1.0 % 08/19/2023 12:42 AM [facility] ABSOLUTE NEUTROPHILS 5.12 1.40 - 5.30 10(3)/mcL 08/19/2023 12:42 AM [facility] ABSOLUTE LYMPHOCYTES 1.50 0.90 - 3.30 10(3)/mcL 08/19/2023 12:42 AM [facility] ABSOLUTE MONOCYTES 0.83 0.10 - 0.90 10(3)/mcL 08/19/2023 12:42 AM [facility] ABSOLUTE EOSINOPHIL 0.00 0.00 - 0.50 10(3)/mcL 08/19/2023 12:42 AM [facility] ABSOLUTE BASOPHILS 0.02 0.00 - 0.10 10(3)/mcL 08/19/2023 12:42 AM CLERK CARRIER [facility] NRBC PER 100 WBC 0 08/19/19 12:42 AM CLERK CARRIER [facility] RESULTS ARE CONSISTENT WITH PERIPHERAL SMEAR REVIEW Yes 08/19/2023 12:42 AM CLERK CARRIER [facility] Blood Venipuncture / Unknown 08/18/2023 11:36 PM CLERK CARRIER 08/19/2023 12:02 AM CLERK CARRIER Edmundo Parsons MD HEMATOLOGY ORDERABLES Fin al Result Performing Organization Address City/[facility]/ZIP Co de Phone Number [facility] [address] [place] [address] * APTT (PTT) (08/18/2023 11:36 PM CLERK CARRIER) PTT 33 24 - 36 sec 08/19/2023 3:26 AM CLERK CARRIER [facility] Blood Venipuncture / Unknown 08/18/2023 11:36 PM CLERK CARRIER 08/19/2023 12:02 AM CLERK CARRIER Narrative [facility] - 08/19/2023 3:26 AM CLERK CARRIER Therapeutic range for unfractionated heparin at 0.3-0.7 U/mL is an aPTT value in the range of 71-100 seconds. Critical value for the PTT test is >= 122 seconds. Edmundo Parsons MD HEMATOLOGY ORDERABLES Fin al Result Performing Organization Address City/[facility]/ZIP Co de Phone Number [facility] [address] [place] [address] * (ABNORMAL) Protime (PT or Prothrombin Time) [id number] (08/18/2023 11:36 PM CLERK CARRIER) PROTIME-PATIENT 17.7(H) 11.6 - 14.8 sec 08/19/2023 3:26 AM CLERK CARRIER [facility] INR 1.4(H) 0.9 - 1.2 08/19/2023 3:26 AM [facility] Comment: Therapeutic Ranges INR = 2.0-3.0: Venous thromb, atrial fib, pul embolism, tissue heart valve, ami. INR = 2.5-3.5: Mechanical heart valve Critical value for INR is >/= 4.5 Blood Venipuncture / Unknown 08/18/2023 11:36 PM CLERK CARRIER 08/19/2023 12:02 AM CLERK CARRIER us Edmundo Parsons MD HEMATOLOGY ORDERABLES Fin al Result [facility] [address] [place] [address] * (ABNORMAL) CMP (Comprehensive Metabolic Panel) (08/18/2023 11:36 PM CLERK CARRIER) SODIUM 139 136 - 145 mmol/L 08/19/2023 12:25 AM [facility] POTASSIUM 4.1 3.5 - 5.1 mmol/L 08/19/2023 12:25 AM [facility] CHLORIDE 107 98 - 107 mmol/L 08/19/2023 12:25 AM [facility] CO2, VENOUS 23 22 - 30 mmol/L 08/19/2023 12:25 AM [facility] ANION GAP 13.1 <18.0 mmol/L 08/19/2023 12:25 AM [facility] GLUCOSE 96 70 - 99 mg/dL 08/19/2023 12:25 AM [facility] BUN 13 8 - 26 mg/dL 08/19/2023 12:25 AM [facility] CREATININE, BLOOD 0.79 0.70 - 1.30 mg/dL 08/19/2023 12:25 AM [facility] BUN/CREATININE RATIO 16 12 - 20 ratio 08/19/2023 12:25 AM [facility] TOTAL PROTEIN 5.9(L) 6.3 - 8.2 g/dL 08/19/2023 12:25 AM [facility] ALBUMIN 3.4(L) 3.5 - 5.0 g/dL 08/19/2023 12:25 AM [facility] A/G RATIO 1.4 1.0 - 2.2 08/19/2023 12:25 AM [facility] CALCIUM 8.6(L) 8.7 - 10.5 mg/dL 08/19/2023 12:25 AM [facility] T BILI 0.2 0.2 - 1.2 mg/dL 08/19/2023 12:25 AM [facility] SGOT (AST) 10 5 - 34 U/L 08/19/2023 12:25 AM [facility] SGPT (ALT) 21 0 - 55 U/L 08/19/2023 12:25 AM [facility] ALKALINE PHOSPHATASE 62 40 - 150 U/L 08/19/2023 12:25 AM [facility] GFR, ESTIMATED >60 >=60 08/19/2023 12:25 AM [facility] Comment: Creatinine Clearance is the preferred criteria for selecting drug dose adjustments in renally impaired patients. ??The GFR is provided as additional pertinent clinical information. GFR is reported in mL/min/1.73 sq m. Calculation based on the Chronic Kidney Disease Epidemiology Collaboration (CKD- EPI) equation refit without adjustment for race. GFR, EST. >60 >=60 024 12:25 AM CLERK CARRIER [facility] GFR, EST. NONAFRICAN >60 >=60 08/19/2023 12:25 AM [facility] Blood Venipuncture / Unknown 08/18/2023 11:36 PM CLERK CARRIER 08/19/2023 12:02 AM CLERK CARRIER us Edmundo Parsons MD CHEMISTRY ORDERABLES Mireya l Result [facility] [address] [place] [address] documented in this encounter Visit Diagnoses Diagnosis Gross hematuria- Primary Urinary retention Retention of urine, unspecified Thrombocytopenia (HCC) Thrombocytopenia, unspecified documented in this encounter Administered Medications Inactive Administered Medications - up to 3 most recent administrations Medication Order MAR Action Action Date Dose Rate Site 0.9 % sodium chloride solution at 500 mL/hr, Intravenous, ONCE, 1 dose, On 08/19/23 at 0000 New Bag 08/18/2023 11:39 PM CLERK CARRIER 1,000 mL 500 mL/hr documented in this encounter Active and Recently Administered Medications Times are shown in CLERK CARRIER. 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
--- OUTSIDE RECORDS SUMMARY | 2024-07-28 14:08 | XMS_ITS | Encounter Summary ---
Author Organization [facility] Address [address] [place] [address] Phone Care Team Providers Care Sales Demonstrator Name Role Phone Irving Jeffries MD Primary Care Provider [phone] Ton Ling APRN, INSPECTOR MATERIAL DISPOSITION Unavailable [phone] Michael Ahmadi MD Unavailable [phone] Reason for Visit * Auth/Cert (Routine) Specialty Diagnoses / Procedures Referred By Contclay t Referred To Contact Referral ID Status Reason Start Date Expiration Date Visits Re quested Visits Authorized [id number] 1 1 Encounter Details Date Type Department Care Team (Late st Contact Info) Description 08/17/2023 12:30 PM HYDRAULIC AND PLUMBING INSTALLER Home Care Visit [facility] [address] [place] [address] Bea Clark RN [place] SN - PRIORITY VISIT Social History Tobacco Use Types Packs/Day Years Used Date Smoking Tobacco: Former Cigarettes 2 20 Passive Smoke Exposure: Past Smokeless Tobacco: Never Alcohol Use Standard Drinks/Week Comments Not Currently 0 (1 standard drink = 0.6 oz pur e alcohol) [facility] Utilities Answer Date Recorded In [...] How often do you attend chur or orthodoxy services? Patient unable to answer 08/14/2023 Do [...] Total Score - Questions 1-9 0 07/31 [facility] - Occupational Stress Questionnaire Answer Date [...] slept in a assisted (including now)? Patient unable to answer 08/14/2023 Sexually Active Control Partners Comments Never Sex and Gender Information Value Date Recorded Sex Assigned at Not on file Legal Sex Male 11:18 PM CDT Gender Identity Not on file Sexual Orientation Not on file documented as of this encounter Last Filed Vital Signs Vital Sign Reading Time Taken Comments Blood Pressure 110/56 08/17/2023 12:41 PM HYDRAULIC AND PLUMBING INSTALLER Pulse 76 08/17/2023 12:41 PM HYDRAULIC AND PLUMBING INSTALLER Temperature 36.9 ??C (98.4 ??F) 08/17/2023 12:[address] Respiratory Rate - - Oxygen Saturation 95% 08/17/2023 12:41 PM HYDRAULIC AND PLUMBING INSTALLER Inhaled Oxygen Concentration - - Weight - - Height - - Body Mass Index - - documented in this encounter Plan of Treatment Not on file documented as of this encounter Visit Diagnoses Not on filedocumented in this encounter Additional Health Concerns 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 07/28/2023 09/04/2023 8:45 AM HYDRAULIC AND PLUMBING INSTALLER Assessment Noted Time PHQ-9 Depression Total Score: 0 08/14/19 24 3:02 PM HYDRAULIC AND PLUMBING INSTALLER documented as of this encounter Home Health Visit - Care Plan Visit Details Visit Type -SN - Priority Vi sit Discipline -Prison Problems Problem Description Start Date Status Goals Interve ntions FALL PREVENTION (O) Disciplines: SN, PT, OT, VEHICLE WINDOW TINTER, HCA, TERMINAL MAKEUP OPERATOR, RT 08/09/2023 Active 1 goal linked to scheduled/documen hector intervention 1 goal intervention scheduled/document ed in this visit ALL HH VITAL SIGN PARAMETERS Disciplines: All Home Care 08/09/2023 Active - 1 problem intervention scheduled/document ed in this visit PNEUMONIA ORDERS Disciplines: Prison Pneumonia Orders 08/09/2023 Active 1 goal linked to scheduled/documen hector intervention 1 goal intervention scheduled/document ed in this visit SAFETY/PREVENTI ON EDUCATION Disciplines: Prison Safety/Preventio n Education 08/09/2023 Active - 1 problem intervention scheduled/document ed in this visit SN GENERAL ORDERS Disciplines: Prison SN General Orders 08/09/2023 Active 1 goal linked to scheduled/documen hector intervention 2 goal interventions scheduled/document ed in this visit DEPRESSION Disciplines: Prison Depression Risk 08/09/2023 Active 1 goal linked [...] days. Face to Face encounter occurred on 08/07/23 with Annie Jeffries MD. Dr. Jeffries contacted and agrees with plan [...] none ordered Social Work Focus: none ordered Communications Administrator to provide: none ordered Past Medical History: [...] Instruction provided to: Patient. Response verbalize understanding. documented in this encounter Care Teams Sales Demonstrator Relationship Specialty Start Date End Date Irving Jeffries MD [address] [place] [address] PCP - General Internal Medicine 07/16/21 07/04/24 Ton Ling APRN, INSPECTOR MATERIAL DISPOSITION [address] [place] [address] Nurse Practitioner Advanced Practice Nurse 04/24/23 Michael Ahmadi MD [address] [place] [address] Consulting Physician Medical Oncology 07/26/23 documented as of this encounter
--- OUTSIDE RECORDS SUMMARY | 2024-07-28 14:08 | XMS_ITS | Encounter Summary ---
Author Organization [employer] Care Team Providers Care Specialist Physicians Name Role Phone Irving Jeffries MD Primary Care Provider [phone] Ton Ling APRN, ACADEMIC PHYSICIAN Unavailable [phone] Michael Ahmadi MD Unavailable [phone] Encounter Details Date Type Department Care Team (Latest Contact Info) Description 08/18/2023 Travel Social History Tobacco Use Types Packs/Day Years Used Date Smoking Tobacco: Former Cigarettes 2 20 Passive Smoke Exposure: Past Smokeless Tobacco: Never Alcohol Use Standard Drinks/Week Comments Not Currently 0 (1 standard drink = 0.6 oz pur e alcohol) [facility] Utilities Answer Date Recorded In the past 12 months has [employer] electric, gas, oil, or water company threatened [...] often do you attend chur ch or roman catholic services? Patient unable to answer 08/14/2023 Do you belong to any clubs o r organizations such as congregation groups, unions, fraternal or athletic groups, or [...] [facility] [...] slept in a penitentiary (including now)? Patient unable to answer 08/14/2023 [...] Time 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 07/28/2023 09/04/2023 8:45 AM LEATHER TACKER Assessment Noted Time PHQ-9 Depression Total Score: 0 08/14/19 24 3:02 PM LEATHER TACKER documented as of this encounter Care Teams Specialist Physicians Relationship Specialty Start Date End Date Irving Jeffries MD [address] [place] [address] PCP - General Internal Medicine 07/16/21 07/04/24 Ton Ling, MATERIALS PLANNER/PRODUCTION PLANNER, ACADEMIC PHYSICIAN [address] [place] [address] Nurse Practitioner Advanced Practice Nurse 04/24/23 Michael Ahmadi MD [address] [place] [address] Consulting Physician Medical Oncology 07/26/23 documented as of this encounter
--- OUTSIDE RECORDS SUMMARY | 2024-07-28 14:08 | XMS_ITS | Encounter Summary ---
Author Organization [employer] Care Team Providers Care Operating Room Scheduler Name Role Phone Irving Jeffries MD Primary Care Provider [phone] Ton Ling APRN, AUTO POLISHER Unavailable [phone] Michael Ahmadi MD Unavailable [phone] Encounter Details Date Type Department Care Team (Latest Contact Info) Description 08/22/2023 Travel Social History Tobacco Use Types Packs/Day Years Used Date Smoking Tobacco: Former Cigarettes 2 20 Passive Smoke Exposure: Past Smokeless Tobacco: Never Alcohol Use Standard Drinks/Week Comments Not Currently 0 (1 standard drink = 0.6 oz pur e alcohol) [facility] Utilities Answer Date Recorded In the past 12 months has [employer] electric, gas, oil, or water company [...] often do you attend chur ch or hindu services? Patient unable to answer 08/14/2023 Do you belong to any clubs o r organizations such as gnosticist groups, unions, fraternal or athletic groups, or [...] slept in a fci (including now)? Patient unable to answer 08/14/2023 [...] Time 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 07/28/2023 09/04/2023 8:45 AM AMMUNITION SUPERVISOR Assessment Noted Time PHQ-9 Depression Total Score: 0 08/14/19 24 3:02 PM AMMUNITION SUPERVISOR documented as of this encounter Care Teams Operating Room Scheduler Relationship Specialty Start Date End Date Irving Jeffries MD [address] [place] [address] PCP - General Internal Medicine 07/16/21 07/04/24 Ton Ling, MONOGRAM TECHNICIAN, AUTO POLISHER [address] [place] [address] Nurse Practitioner Advanced Practice Nurse 04/24/23 Michael Ahmadi MD [address] [place] [address] Consulting Physician Medical Oncology 07/26/23 documented as of this encounter
--- OUTSIDE RECORDS SUMMARY | 2024-07-28 14:08 | XMS_ITS | Encounter Summary ---
Author Organization [facility] Address [address] [place] [address] Phone Care Team Providers Care Hide Worker Name Role Phone Irving Jeffries MD Primary Care Provider [phone] Ton Ling APRN, TRICOT KNITTING MACHINE OPERATOR Unavailable [phone] Michael Ahmadi MD Unavailable [phone] Reason for Visit * Auth/Cert (Routine) Specialty Diagnoses / Procedures Referred By Contclay t Referred To Contact Referral ID Status Reason Start Date Expiration Date Visits Re quested Visits Authorized [id number] 1 1 Encounter Details Date Type Department Care Team (Late st Contact Info) Description 08/11/2023 12:30 PM CARE CONSULTANT Home Care Visit [facility] [address] [place] [address] Bea Clark RN [place] SN - PRIORITY [...] declined 07/28/2023 How often do you attend islam or shinto serv ices? Patient declined 07/28/2023 Do you belong to any clubs o r organizations such as islam groups, unions, fraternal or athletic groups, or [...] medical care, and heating? Patient declined 07/28/2023 [facility] - Occupational Stress Questionnaire Answer [...] in a correction (including now)? Patient declined 07/28/2023 Sex and Gender Information Value Date Recorded Sex Assigned at Not on file Legal Sex Male 11:18 PM CDT Gender Identity Not on file Sexual Orientation Not on file documented as of this encounter Last Filed Vital Signs Vital Sign Reading Time Taken Comments Blood Pressure 110/58 08/11/2023 12:36 PM CARE CONSULTANT Pulse 67 08/11/2023 1:15 PM CARE CONSULTANT Temperature 36.3 ??C (97.3 ??F) 08/11/2023 1 2:36 PM CARE CONSULTANT Respiratory Rate - - Oxygen Saturation 96% 08/11/2023 1:1 5 PM CARE CONSULTANT after walking 10 feet Inhaled Oxygen Concentration - - Weight - - Height - - Body Mass Index - - documented in this encounter Plan of Treatment Not on file documented as of this encounter Visit Diagnoses Not on filedocumented in this encounter Additional Health Concerns 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 07/28/2023 09/04/2023 8:45 AM CARE CONSULTANT documented as of this encounter Home Health Visit - Care Plan Visit Details Visit Type -SN - Priority Vi sit Discipline -Detention Problems Problem Description Start Date Status Goals Interve ntions FALL PREVENTION (O) Disciplines: SN, PT, OT, PASTE MIXING SUPERVISOR, HCA, CHAPTER RELATIONS ADMINISTRATOR, RT 08/09/2023 Active 1 goal linked to [...] goal interventions scheduled/document ed in this visit INDWELLING CATHETER CARE Disciplines: Detention Indwelling Catheter Care 08/09/2023 Active 1 goal linked to scheduled/documen [...] Target date: 09/29/23 SN GENERAL ORDERS No Indwelling Catheter Care Description: Patient/ caregiver will demonstrate the ability to properly care for urinary catheter including methods to prevent infection, and signs and symptoms to report. Target date: 09/09/23 INDWELLING CATHETER CARE No Interventions Intervention Associated [...] thinner and low platelet count, signs of CVA. Problem:SN GENERAL ORDERS Goal:SN General Completed Exacerbation/ complications noted at this visit: blood in urine General Nursing Plan of Care (Order Only) [...] went into afib w/RVR. Patient lives at correction with 24 hour care. Skilled Nurse Focus: catheter maintenance/education Physical Therapy to evaluate and treat for: weakness, deconditioning Occupational Therapy to evaluate and treat for: ADL education with strength conservation Speech Therapy to evaluate and treat for: none ordered Social Work Focus: none ordered Hoisting Engineer Pile Driving to provide: none ordered Past Medical History: [...] goals. Problem:SN GENERAL ORDERS Goal:SN General Completed Urethral Catheter Care (Order Only) Description: Skilled Nurse to maintain urinary catheter: 18 Fr catheter; 10 ml balloon. Change catheter monthly and PRN dislodgement, leakage, or contamination. Instruct patient/ caregiver on signs and symptoms to report including catheter complications, and urinary infection, and methods to prevent. Problem:INDWELLING CATHETER CARE Goal:Indwelling Catheter Care Completed documented in this encounter Care Teams Hide Worker Relationship Specialty Start Date End Date Irving Jeffries MD [address] [place] [address] PCP - General Internal Medicine 07/16/21 07/04/24 Ton Ling, SAGGER MAKER, TRICOT KNITTING MACHINE OPERATOR [address] [place] [address] Nurse Practitioner Advanced Practice Nurse 04/24/23 Michael Ahmadi MD [address] [place] [address] Consulting Physician Medical Oncology 07/26/23 documented as of this encounter
--- OUTSIDE RECORDS SUMMARY | 2024-07-28 14:08 | XMS_ITS | Encounter Summary ---
Author Organization [facility] Address [address] [place] [address] Phone Care Team Providers Care Finished Stock Inspector Name Role Phone Irving Jeffries MD Primary Care Provider [phone] Ton Ling APRN, [facility] Unavailable [phone] Michael Ahmadi MD Unavailable [phone] Reason for Visit * Auth/Cert (Routine) Specialty Diagnoses / Procedures Referred By Contclay t Referred To Contact Referral ID Status Reason Start Date Expiration Date Visits Re quested Visits Authorized [id number] 1 1 Encounter Details Date Type Department Care Team (Late st Contact Info) Description 08/15/2023 1:00 AM COPIER REPAIR TECHNICIAN [facility] [address] [place] [address] Bea Clark RN [place] DISEASE MGT PHONE Discharge Disposition: Discharged to home or Selfcare Social History Tobacco Use Types Packs/Day Years Used Date Smoking Tobacco: Former Cigarettes 2 20 Passive Smoke Exposure: Past Smokeless Tobacco: Never Alcohol Use Standard Drinks/Week Comments Not Currently 0 (1 standard drink = 0.6 oz pur e alcohol) [facility] Utilities Answer Date Recorded In [...] answer 08/14/2023 How often do you attend [facility] or nondenominational services? Patient unable to answer 08/14/2023 Do [...] Total Score - Questions 1-9 0 07/31 [facility] - Occupational Stress Questionnaire Answer Date [...] in a nursing home (including now)? Patient unable to answer [...] Time 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 07/28/2023 09/04/2023 8:45 AM COPIER REPAIR TECHNICIAN Assessment Noted Time PHQ-9 Depression Total Score: 0 08/14/19 24 3:02 PM COPIER REPAIR TECHNICIAN documented as of this encounter Care Teams Finished Stock Inspector Relationship Specialty Start Date End Date Irving Jeffries MD [address] [place] [address] PCP - General Internal Medicine 07/16/21 07/04/24 Ton Ling APRN, RAD TECHNOLOGIST [address] [place] [address] Nurse Practitioner Advanced Practice Nurse 04/24/23 Michael Ahmadi MD [address] [place] [address] Consulting Physician Medical Oncology 07/26/23 documented as of this encounter
--- OUTSIDE RECORDS SUMMARY | 2024-07-28 14:08 | XMS_ITS | Encounter Summary ---
Author Organization [facility] Address [address] [place] [address] Phone Care Team Providers Care Branch Associate Teller Name Role Phone Irving Jeffries MD Primary Care Provider Ton Ling APRN, COAGULATING BATH OPERATOR Unavailable [phone] Michael Ahmadi MD Unavailable [phone] Reason for Visit * Reason Comments Follow-up FROM THE E.R VOIDING TRIAL Encounter Details Date Type Department Care Team (Late st Contact Info) Description 08/15/2023 2:15 PM DIAMOND POWDER MIXER Office Visit [facility] [address] [place] [id number] Ton Ling, KATHLEEN, COAGULATING BATH OPERATOR [address] [place] [address] Urinary retention (Primary Dx); Elevated PSA; Benign prostatic hyperplasia with urinary obstruction Discharge Disposition: Discharged to home or Selfcare Social History Tobacco Use Types Packs/Day Years Used Date Smoking Tobacco: Former Cigarettes 2 20 Passive Smoke Exposure: Past Smokeless Tobacco: Never Alcohol Use Standard Drinks/Week Comments Not Currently 0 (1 standard drink = 0.6 oz pur e alcohol) [facility] Utilities Answer Date Recorded In the past 12 months has [employer], gas, oil, or water company threatened to [...] often do you attend chur ch or sabianism services? Patient unable to answer 08/14/2023 Do [...] Total Score - Questions 1-9 0 07/31 [facility] - Occupational Stress Questionnaire Answer [...] Sign Reading Time Taken Comments Blood Pressure 120/56 08/15/2023 2:23 PM DIAMOND POWDER MIXER Pulse 101 08/15/2023 2:23 PM DIAMOND POWDER MIXER Temperature - - Respiratory Rate 20 08/15/2023 2:23 PM DIAMOND POWDER MIXER Oxygen Saturation - - Inhaled Oxygen Concentration - - Weight 86.6 kg (191 lb) 08/15/2023 2:23 PM DIAMOND POWDER MIXER Height 182.9 cm (6') 08/15/2023 2:23 PM DIAMOND POWDER MIXER Body Mass Index 25.9 08/15/2023 2:23 PM DIAMOND POWDER MIXER documented in this encounter Progress Notes * Ton Ling, DIRECTOR EMERGENCY, COAGULATING BATH OPERATOR - 08/15/2023 2:15 PM CST UROLOGY [facility] [address] [facility], [address] [place] [address] PHONE: FAX: Assessment & Plan Urinary retention- patient unable to void in office today. Plan to increase tamsulosin to twice daily and start patient on finasteride. Patient to follow up in 1 week for UA/PVR check. Patient instructed that if he has not able to urinate overnight over the weekend he needs to proceed to the emergency room for catheter placement. If our office as up and he is to call the office for UA/PVR. Subjective: 04/24/2023 HPI: HPI: Iván Dumont presents [...] trend 04/24/2023-9.75 03/15/2023-9.18 03/01/2023-8.19 06/20/2023 HPI: HPI: Ivná Dumont presents to the office for follow-up [...] cc. He overtly wants to avoid anothercatheter. The following portions of the patient's chart were reviewed in this encounter and updated as appropriate: Tobacco Allergies Med Hx Surg Hx Fam Hx Soc [...] time. Lab Results Component Value Date WBC 14.57 (H) 08/09/2023 HEMOGLOBIN 13.5 08/09/2023 HEMATOCRIT 42.2 08/09/2023 PLATELETCNT 196 08/09/2023 MCV 95.0 08/09/2023 Lab Results Component Value Date SODIUM 138 08/09/2023 POTASSIUM 4.5 08/09/2023 CHLORIDE 106 08/09/2023 CO2VEN 22 08/09/2023 ANIONGAP 14.5 08/09/2023 GLUCOSE 128 (H) 08/09/2023 BUN 28 (H) 08/09/2023 CREATININE 0.87 08/09/2023 BCRATIO8 32 (H) 08/09/2023 TOTALPROTEIN 6.9 08/09/2023 ALBUMIN 3.8 08/09/2023 AGRATIO 1.3 03/15/2023 CALCIUM 8.8 08/09/2023 TBIL 0.3 08/09/2023 SGOTAST 17 08/09/2023 SGPTALT 56 (H) 08/09/2023 ALKALINEPHO 68 08/09/2023 GFRNA >60 08/09/2023 GFRA >60 08/09/2023 Lab Results Component Value Date PSASCREEN 9.18 (H) 03/15/2023 PSA 8.19 03/01/2023 PSATOTAL 9.75 (H) 04/24/2023 Results for orders placed or performed during the hospital encounter of 01/05/23 Urinalysis w/ Reflex Result Value Ref Range Status SPECIFIC GRAVITY 1.010 1.003 - 1.030 Final URINE PH 5.0 5.0 - 9.0 Final WBC ESTERASE 25 /ul (A) Negative Final NITRITE Negative Negative Final PROTEIN, RANDOM URINE 30 mg/dL (A) Negative Final URINE GLUCOSE, QUAL Negative Negative Final URINE KETONES 5 mg/dL (A) Negative Final UROBILINOGEN Normal Normal mg/dL Final URINE BLOOD 50 /uL (A) Negative yoni/ul Final URINALYSIS COLOR Yellow Final URINALYSIS CLARITY Clear Final WBC (Urine) 6-10 (A) Negative, 0-5 /hpf Final URINE RBC'S 3-5 (A) Negative, 0-2 /hpf Final EPITHELIAL CELLS Occasional /lpf Final BACTERIA, URINE Negative Negative /hpf Final Culture, Urine Specimen: Urine Result Value Ref Range Status CULTURE RESULTS NO GROWTH WITHIN 1 DAY Final No results found for: TESTOSTTTL No results found for this or any previous visit from the past 365 days. Iván Thornton was seen today for follow-up. Diagnoses and all orders for this visit: Urinary retention - NURSING COMMUNICATION By: Ton Ling APRN, CNP, 08/15/2023, 2:18 PM DIAMOND POWDER MIXER Primary Care Physician: Irving Jeffries MD OND POWDER MIXER documented in this encounter Plan of Treatment Not on file documented as of this encounter Visit Diagnoses Diagnosis Urinary retention- Primary Retention of urine, unspecified Elevated PSA Elevated prostate specific antigen (PSA) Benign prostatic hyperplasia with urinary obstruction documented in this encounter Additional Health Concerns 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 07/28/2023 09/04/2023 8:45 AM DIAMOND POWDER MIXER Assessment Noted Time PHQ-9 Depression Total Score: 0 08/14/19 24 3:02 PM DIAMOND POWDER MIXER documented as of this encounter Care Teams Branch Associate Teller Relationship Specialty Start Date End Date Irving Jeffries MD [address] [place] [address] PCP - General Internal Medicine 07/16/21 07/04/24 Ton Ling APRN, COAGULATING BATH OPERATOR [address] [place] [address] Nurse Practitioner Advanced Practice Nurse 04/24/23 Michael Ahmadi MD [address] [place] [address] Consulting Physician Medical Oncology 07/26/23 documented as of this encounter
--- OUTSIDE RECORDS SUMMARY | 2024-07-28 14:08 | XMS_ITS | Encounter Summary ---
Author Organization [facility] Address [address] [place] [address] Phone Care Team Providers Care Manager Utilities Name Role Phone Irving Jeffries MD Primary Care Provider Ton Ling LAST REPAIRER HELPER, HUMAN RESOURCES HR REPRESENTATIVE Unavailable Ame Scanlon LAST REPAIRER HELPER, HUMAN RESOURCES HR REPRESENTATIVE Unavailable + [phone] Michael Ahmadi MD Unavailable Reason for Visit * Auth/Cert (Routine) Specialty Diagnoses / Procedures Referred By Geeta t Referred To Contact Referral ID Status Reason Start Date Expiration Date Visits Re quested Visits Authorized [id number] 1 1 Encounter Details Date Type Department Care Team (Late st Contact Info) Description 08/24/2023 12:30 PM GROVE WORKER [facility] [address] [place] [address] Bea Clark RN [place] - PRIORITY VISIT Discharge Disposition: Discharged to home or Selfcare Social History Tobacco Use Types Packs/Day Years Used Date Smoking Tobacco: Former Cigarettes 2 20 Passive Smoke Exposure: Past Smokeless Tobacco: Never Alcohol Use Standard Drinks/Week Comments Not Currently 0 (1 standard drink = 0.6 oz pur e alcohol) [facility] Utilities Answer Date Recorded In the past 12 months has [employer] electric, gas, oil, or water company threatened [...] often do you attend chur ch or rastafarian services? Patient unable to answer 08/14/2023 Do you belong to any clubs o r organizations such as anglican groups, unions, fraternal or athletic groups, or [...] Total Score - Questions 1-9 0 07/31 [facility] - Occupational Stress [...] Sign Reading Time Taken Comments Blood Pressure 120/58 08/24/2023 12:36 PM GROVE WORKER Pulse 83 08/24/2023 12:36 PM GROVE WORKER Temperature 36.4 ??C (97.5 ??F) 08/24/2023 12:[address] Respiratory Rate - - Oxygen Saturation 97% 08/24/2023 12:36 PM GROVE WORKER Inhaled Oxygen Concentration - - Weight - - Height - - Body Mass Index - - documented in this encounter Plan of Treatment Not on file documented as of this encounter Visit Diagnoses Not on filedocumented in this encounter Additional Health Concerns 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 07/28/2023 09/04/2023 8:45 AM GROVE WORKER Assessment Noted Time PHQ-9 Depression Total Score: 0 08/14/19 24 3:02 PM GROVE WORKER documented as of this encounter Home Health Visit - Care Plan Visit Details Visit Type -SN - Priority Vi sit Discipline -Fdc Problems Problem Description Start Date Status Goals Interve ntions FALL PREVENTION (O) Disciplines: SN, PT, OT, DRYING MACHINE RECEIVER, HCA, OIL HOUSE ATTENDANT, RT 08/09/2023 Active 1 goal linked to scheduled/documen hector intervention 1 goal intervention scheduled/document ed in this visit ALL HH VITAL SIGN PARAMETERS Disciplines: All Home Care 08/09/2023 Active - 1 problem intervention scheduled/document ed in this visit PNEUMONIA ORDERS Disciplines: Fdc Pneumonia Orders 08/09/2023 Active 1 goal linked to scheduled/documen hector intervention 1 goal intervention scheduled/document ed in this visit SAFETY/PREVENTI ON EDUCATION Disciplines: Fdc Safety/Preventio n Education 08/09/2023 Active - 1 problem intervention scheduled/document ed in this visit SN GENERAL ORDERS Disciplines: Fdc SN General Orders 08/09/2023 Active 1 goal linked to scheduled/documen hector intervention 2 goal interventions scheduled/document ed in this visit DEPRESSION Disciplines: Fdc Depression Risk 08/09/2023 Active 1 goal linked [...] went into afib w/RVR. Patient lives at long term with 24 hour care. Skilled Nurse Focus: catheter maintenance/education Physical Therapy to evaluate and treat for: weakness, deconditioning Occupational Therapy to evaluate and treat for: ADL education with strength conservation Speech Therapy to evaluate and treat for: none ordered Social Work Focus: none ordered Design Lead to provide: none ordered Past Medical History: [...] yourself, break up large tasks into small ones Instruction provided to: Patient. Response verbalize understanding. documented in this encounter Care Teams Manager Utilities Relationship Specialty Start Date End Date Irving Jeffries MD [address] [place] [address] PCP - General Internal Medicine 07/16/21 07/04/24 Ton Ling APRN, HUMAN RESOURCES HR REPRESENTATIVE [address] [place] [address] Nurse Practitioner Advanced Practice Nurse 04/24/23 Ame Scanlon APRN, HUMAN RESOURCES HR REPRESENTATIVE #[address] [facility] [address] [place] [address] Nurse Practitioner Cardiology 08/23/23 Michael Ahmadi MD [address] [place] [address] Consulting Physician Medical Oncology 07/26/23 documented as of this encounter
--- OUTSIDE RECORDS SUMMARY | 2024-07-28 14:08 | XMS_ITS | Encounter Summary ---
Author Organization [facility] Address [address] [place] [place] [address] Phone Care Team Providers Care Block Out Machine Operator Name Role Phone Irving Jeffries MD Primary Care Provider [phone] Ton Ling APRN, GLASS BLOCK INSTALLER Unavailable [phone] Michael Ahmadi MD Unavailable [phone] Reason for Visit * Auth/Cert (Routine) Specialty Diagnoses / Procedures Referred By Contclay t Referred To Contact Referral ID Status Reason Start Date Expiration Date Visits Re quested Visits Authorized [id number] 1 1 Encounter Details Date Type Department Care Team (Late st Contact Info) Description 08/17/2023 10:00 AM LIFE MANAGER [facility] [address] [place] [address] Mere Puckett, BARBARA PT - HOME VISIT Social History Tobacco Use Types Packs/Day Years Used Date Smoking Tobacco: Former Cigarettes 2 20 Passive Smoke Exposure: Past Smokeless Tobacco: Never Alcohol Use Standard Drinks/Week Comments Not Currently 0 (1 standard drink = 0.6 oz pur e alcohol) [facility] Utilities Answer Date Recorded In the past [...] How often do you attend chur or latter-day services? Patient unable to answer 08/14/2023 Do you belong to any clubs o r organizations such as catholic groups, unions, fraternal or athletic groups, or [...] Total Score - Questions 1-9 0 07/31 [facility] - Occupational Stress Questionnaire Answer [...] Sign Reading Time Taken Comments Blood Pressure 94/62 08/17/2023 10:35 AM LIFE MANAGER Pulse 83 08/17/2023 10:35 AM LIFE MANAGER Temperature 36.8 ??C (98.3 ??F) 08/17/2023 10:[address] Respiratory Rate 18 08/17/2023 10:35 AM LIFE MANAGER Oxygen Saturation 98% 08/17/2023 10:35 AM LIFE MANAGER Inhaled Oxygen Concentration - - Weight - - Height - - Body Mass Index - - documented in this encounter Plan of Treatment Not on file documented as of this encounter Visit Diagnoses Not on filedocumented in this encounter Additional Health Concerns 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 07/28/2023 09/04/2023 8:45 AM LIFE MANAGER Assessment Noted Time PHQ-9 Depression Total Score: 0 08/14/19 24 3:02 PM LIFE MANAGER documented as of this encounter Home Health Visit - Care Plan Visit Details Visit Type -PT - HOME VISIT Discipline -Physical Therapy Problems Problem Description Start Date Status Goals Interve ntions THERAPY DISEASE MANAGEMENT (O) Disciplines: Physical Therapy 08/10/2023 Active - 1 problem intervention scheduled/document ed in this visit PT COMPREHENSIVE Disciplines: Physical Therapy 08/10/2023 Active 5 goals linked to scheduled/documente d interventions 5 goal interventions scheduled/document ed in this visit Goals Goal Associated Problem Outcome Goal Met? Visit Notes PT Balance Description: Correction Goal: Patient will show improved dynamic standing balance as demonstrated by improved Tinetti score from 10/28 to 19/28 in order to lower risk for falls. To be met by 09/16/23. PT COMPREHENSIVE No PT Caregiver Assist/Safety Description: Short Term [...] for appointments. To be met by 08/31/23. Overlock Waistline Joiner Goal: Patient will ambulate independently 150 feet with use of straight cane, over even surfaces and uneven surfaces with the following improved gait characteristics no loss of balance in order to safely leave home for appointments. To be met by 09/16/23. PT COMPREHENSIVE No PT Transfers Description: Overlock Waistline Joiner Goal: Patient will perform sit to stand/pivot transfers independently with use of device as needed ; in order to be safe in home. To be met by 09/16/23. PT COMPREHENSIVE No PT HEP Description: Correction Goal: Patient and/or caregiver will with supervision [...] Balance training provided this date Dynamic standing alternating toe taps onto trash can on its side x 10 and straddle leg standing holding balance on each leg for 30 seconds each. Level of support required for safety with contact guard assist. Special Test performed this date unsupported standing balance 180 seconds. Skill provided Balance activity progression completed this date added toe taps and straddle standing challenges . Instruction provided to Patient. Response return demonstration. Progress toward goal: mild unsteadiness observed during above mentioned challenges PT Caregiver Assist/Safety Description: Instruct caregiver how to safely assist patient. Problem:PT COMPREHENSIVE Goal:PT Caregiver Assist/Safety Completed Caregiver training provided to Lenora egarding: stair negotiation Caregiver response to training: verbalize understanding and ongoing. Progress toward goal: performed 10 steps up and down from lower level of building to upper level of building where patients prior bedroom is located. First trial on steps patient got to the top and got weak,diaphretic and out of balance and would have fallen if SILVICULTURE FORESTER was not holding onto patient PT Ambulation Description: Provide gait training for increased safety and efficiency. Progress per patient tolerance and safety. Problem:PT COMPREHENSIVE Goal:PT Ambulation Completed Patient ambulated with stand by assistance 100 feet with use of no device. WBAT bilateral lower extremity over even surfaces with the following gait characteristics slow germán, stooped posture, with mild decrease stance phase observed over right L/E. Patient held on to rails in hallwayy and no balance losses observed.. Skills provided: Safety instruction use rails for safety and do not go upstairs without assistance yet . Tolerance to activity increased gait distance. Instruction provided to Patient. Response verbalize understanding. Progress toward goal: added stair ascend/descend 19 stairs to prior bedroom PT Transfers Description: Instruct in proper safety and transfer technique. Problem:PT COMPREHENSIVE Goal:PT Transfers Completed Transfer training provided this date Sit to/from stand . Level of support required for safety independently. Assistive devices used: no device-patient reports Lenora said he does not need to use the walker anymore Skill provided Safety instructions go slow. Tolerance to activity fair Instruction provided to patient Response return demonstration. Progress toward goal: indpendant with fast impulsive movements observed with no falls reported PT HEP Progression Description: Instruct on home exercise program. Progress as tolerated. Problem:PT COMPREHENSIVE Goal:PT HEP Completed Home Exercise Program performed standing holding onto SILVICULTURE FORESTER hands for stability consisting of ankle DF/PF, squats, hip/knee flexion/extension and hip abduction with fast pacing and leg fatigue reported. Patient declined need for exercise handouts Instruction provided to Patient. Vader reported patient was a little SOB today. All vitals WNL's except BP low at rest 90/62. Recommend drinking more water to keep BP up and bladder flushed as much as possible Response return demonstration. documented in this encounter Care Teams Block Out Machine Operator Relationship Specialty Start Date End Date Irving Jeffries MD [address] [facility] [place] [address] PCP - General Internal Medicine 07/16/21 07/04/24 Ton Ling, COGNOS ANALYST, GLASS BLOCK INSTALLER [address] [place] [address] Nurse Practitioner Advanced Practice Nurse 04/24/23 Michael Ahmadi MD [address] [place] [address] Consulting Physician Medical Oncology 07/26/23 documented as of this encounter
--- OUTSIDE RECORDS SUMMARY | 2024-07-28 14:08 | XMS_ITS | Encounter Summary ---
Author Organization [facility] Address [address] [place] [address] Phone Care Team Providers Care Food Service Counter Clerk Name Role Phone Irving Jeffries MD Primary Care Provider [phone] Ton Ling APRN, BUSINESS EXCELLENCE LEADER Unavailable [phone] Michael Ahmadi MD Unavailable [phone] Reason for Visit * Auth/Cert (Routine) Specialty Diagnoses / Procedures Referred By Contclay t Referred To Contact Referral ID Status Reason Start Date Expiration Date Visits Re quested Visits Authorized [id number] 1 1 Encounter Details Date Type Department Care Team (Late st Contact Info) Description 08/15/2023 9:00 AM WIRING TECHNICIAN [facility] [address] [place] [address] Mere Puckett, BARBARA PT - HOME VISIT Social History Tobacco Use Types Packs/Day Years Used Date Smoking Tobacco: Former Cigarettes 2 20 Passive Smoke Exposure: Past Smokeless Tobacco: Never Alcohol Use Standard Drinks/Week Comments Not Currently 0 (1 standard drink = 0.6 oz pur e alcohol) [facility] Utilities Answer Date Recorded In the [...] How often do you attend chur or restorationist services? Patient unable to answer 08/14/2023 Do [...] Questions 1-9 0 07/31 [facility] - Occupational Stress Questionnaire [...] Sign Reading Time Taken Comments Blood Pressure 117/61 08/15/2023 9:21 AM WIRING TECHNICIAN Pulse 71 08/15/2023 9:21 AM WIRING TECHNICIAN Temperature 36.6 ??C (97.8 ??F) 08/15/2023 9:21 AM CS T Respiratory Rate 18 08/15/2023 9:21 AM WIRING TECHNICIAN Oxygen Saturation 98% 08/15/2023 9:21 AM WIRING TECHNICIAN Inhaled Oxygen Concentration - - Weight - - Height - - Body Mass Index - - documented in this encounter Plan of Treatment Not on file documented as of this encounter Visit Diagnoses Not on filedocumented in this encounter Additional Health Concerns 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 Visit Notes PT Ambulation Description: Short Term Goal: Patient will ambulate with supervision 100 feet with use of 2 wheel walker, over even surfaces with the following improved gait characteristics no loss of balance in order to safely leave home for appointments. To be met by 08/31/23. Assisted Goal: Patient will ambulate independently 150 feet with use of straight cane, over even surfaces and uneven surfaces with the following improved gait characteristics no loss of balance in order to safely leave home for appointments. To be met by 09/16/23. PT COMPREHENSIVE No PT Transfers Description: Nanotechnology Engineering Technologist Goal: Patient will perform sit to stand/pivot transfers independently with use of device as needed ; in order to be safe in home. To be met by 09/16/23. PT COMPREHENSIVE No PT HEP Description: Nanotechnology Engineering Technologist Goal: Patient and/or caregiver will with supervision [...] to physician no aware of situation PT Ambulation Description: Provide gait training for increased safety and efficiency. Progress per patient tolerance and safety. Problem:PT COMPREHENSIVE Goal:PT Ambulation Completed Patient ambulated with supervision 100 feet with use of 2 wheel walker. WBAT bilateral lower extremity over even surfaces with the following gait characteristics moderate pace, stooped posture walking to far behind walker. No balance losses observed with patient picking up walker with unsafe technique noted at times during gait session this visit Skills provided: Verbal cues consisting of stay close to walker do not walk away from it or to far behind it Tolerance to activity increased gait distance. Instruction provided to Patient. Note left in room to remind patient and staff to use walker at all times for now until patient regains his strength as caregiver reports he never used a walker before and lived upstairs prior to him getting sick Response ongoing. Progress toward goal: increased gait distance demonstrated this session going donw hallway past TV room then back to his room at other end of hallway PT Transfers Description: Instruct in proper safety and transfer technique. Problem:PT COMPREHENSIVE Goal:PT Transfers Completed Transfer training provided this date Sit to/from stand . Level of support required for safety with supervision. Assistive devices used: Front wheeled walker Skill provided Proper hand placement. Tolerance to activity good Instruction provided to Patient. Response ongoing. Progress toward goal: ongoing with patient pulling up on walker handles instead of pushing up from solid surfaces for optimal safety PT HEP Progression Description: Instruct on home exercise program. Progress as tolerated. Problem:PT COMPREHENSIVE Goal:PT HEP Completed Home Exercise Program performed supine B L/E's AROM x 10 consisting of bridging, short arc quads, straight leg raises, hip abduction, heel slides and ankle DF/PF with fast pace, partial ROM and no relaxation between reps of exercises. Instruction provided to Patient. Go slow, move through full motion and relax muscle between reps of exercises for optimal outcomes for leg strengthening Response ongoing. documented in this encounter Care Teams Food Service Counter Clerk Relationship Specialty Start Date End Date Irving Jeffries MD [address] [place] [address] PCP - General Internal Medicine 07/16/21 07/04/24 Ton Ling APRN, BUSINESS EXCELLENCE LEADER [address] [place] [address] Nurse Practitioner Advanced Practice Nurse 04/24/23 Michael Ahmadi MD [address] [place] [address] Consulting Physician Medical Oncology 07/26/23 documented as of this encounter
--- OUTSIDE RECORDS SUMMARY | 2024-07-28 14:08 | XMS_ITS | Encounter Summary ---
Author Organization [facility] Address [address] [facility] [place] [address] Phone Care Team Providers Care Floor Service Worker Spring Name Role Phone Ivring Jeffries MD Primary Care Provider [phone] Ton Ling APRN, REFINING ENGINEER Unavailable [phone] Michael Ahmadi MD Unavailable [phone] Reason for Visit * Reason Comments Post-Hospital Follow-up RSV, Pnuemonia Encounter Details Date Type Department Care Team (Late st Contact Info) Description 08/14/2023 3:00 PM ENERGY EFFICIENT SITE MANAGER Office Visit [facility] - [facility] [place] [address] [place] [address] rIving Jeffries MD [address] [place] [address] Acute respiratory failure with hypoxia (HCC) (Primary Dx); Paroxysmal atrial fibrillation (HCC); Essential hypertension, benign; GERD without esophagitis; Thrombocytopenia (HCC); Elevated PSA; Urinary retention Discharge Disposition: Discharged to home or Selfcare Social History Tobacco Use Types Packs/Day Years Used Date Smoking Tobacco: Former Cigarettes 2 20 Passive Smoke Exposure: Past Smokeless Tobacco: Never Tobacco Cessation:Counseling Given: No Alcohol Use Standard Drinks/Week Comments Not Currently 0 (1 standard drink = 0.6 oz pur e alcohol) [facility] Utilities Answer Date Recorded In the past 12 months has e [employer], gas, oil, or water [employer] threatened to shut off services in your [...] often do you attend chur ch or religion services? Patient unable to answer 08/14/2023 Do you belong to any clubs o r organizations such as muslim groups, unions, fraternal or athletic groups, or [...] 0 07/31 [facility] [...] in a long term (including now)? Patient unable to answer 08/14/2023 Sexually Active Control Partners Comments Never Sex and Gender Information Value Date Recorded Sex Assigned at Not on file Legal Sex Male 11:18 PM CDT Gender Identity Not on file Sexual Orientation Not on file documented as of this encounter Last Filed Vital Signs Vital Sign Reading Time Taken Comments Blood Pressure 110/56 08/14/2023 2:56 PM ENERGY EFFICIENT SITE MANAGER Pulse 68 08/14/2023 2:56 PM ENERGY EFFICIENT SITE MANAGER Temperature 36.7 ??C (98 ??F) 08/14/2023 2:56 PM ENERGY EFFICIENT SITE MANAGER Respiratory Rate - - Oxygen Saturation 99% 08/14/2023 2:56 PM ENERGY EFFICIENT SITE MANAGER Inhaled Oxygen Concentration - - Weight 86.6 kg (191 lb) 08/14/2023 2:56 PM ENERGY EFFICIENT SITE MANAGER Height 182.9 cm (6') 08/14/2023 2:56 PM ENERGY EFFICIENT SITE MANAGER Body Mass Index 25.9 08/14/2023 2:56 PM ENERGY EFFICIENT SITE MANAGER documented in this encounter Functional Status * Audit-C Score Answer Date of Assessment Author -1 08/14/2023 3:01 PM Scarlet Ashby CMA * Within the last year, have you been humiliated or emotionally abused in other ways by your partner or ex-partner? Answer Date of Assessment Author Patient unable to answer 08/14/2023 3:01 PM Scarlet Ashby CMA * Within the last year, have you been afraid of your partner or ex-partner? Answer Date of Assessment Author Patient unable to answer 08/14/2023 3:01 PM Scarlet Ashby CMA * Within the last year, have you been raped or forced to have any kind of sexual activity by your partner or ex-partner? Answer Date of Assessment Author Patient unable to answer 08/14/2023 3:01 PM Scarlet Ashby CMA * Within the last year, have you been kicked, hit, slapped, or otherwise physically hurt by your partner or ex-partner? Answer Date of Assessment Author Patient unable to answer 08/14/2023 3:01 PM Scarlet Ashby CMA * Question Answer Date of Assessment Author Q1: How often do you have a drink containing alcohol? Patient unable to answer 08/14/2023 3:01 PM Scarlet Ashby CMA Q2: How many drinks containing alcohol do you have on a typical day when you are drinking? Patient unable to answer 08/14/2023 3:01 PM Scarlet Ashby CMA Q3: How often do you have six or more drinks on one occasion? Patient unable to answer 08/14/2023 3:01 PM Scarlet Ashby CMA * Question Answer Date of Assessment Author Little interest or pleasure in doing things Not at all 08/14/2023 3:02 PM Scarlet Ashby CMA Feeling down, depressed, or hopeless Not at all 08/14/2023 3:02 PM Scarlet Ashby CMA * Over the past 2 weeks, how often have you been bothered by any of the following problems? Question Answer Date of Assessment Author Patient Health Questionnaire -2 Score 0 08/14/2023 3:02 PM Scarlet Ashby CMA documented as of this encounter Progress Notes * Scarlet Clark CMA - 08/14/2023 3:00 PM CST Iván screened for Social Determinants of Health and patient declined to answer the questions. GY EFFICIENT SITE MANAGER * Scarlet Clark CMA - 08/14/2023 3:00 PM CST Iván Dumont, 77 y.o., male is here for Post-Hospital Follow-up (RSV, Pnuemonia) Medication Refills: Patient reports/denies need for medication refills. Orders Pended: no Requested Prescriptions No prescriptions requested or ordered in this encounter Home Medications Medication Sig Start Date End Date Taking? Authorizing Provider acetaminophen (TYLENOL) 325 MG Tablet Take 2 Tablets by mouth every 6 hours as needed for Mild or more severe pain. Yes ProviderMelody MD amLODIPine (NORVASC) 10 MG Tablet Take 1 Tablet by mouth daily. 02/21/23 Yes Irving Jeffries MD cephALEXin (Keflex) 500 MG Capsule Take 1 Capsule by mouth 2 times daily for 7 days. 08/09/23 08/16/23 Yes Mason Culp MD CLOZAPINE PO Take 100 mg by mouth daily. 50 mg at bedtime, 150 mg in the morning Yes ProviderMelody MD docusate sodium (COLACE) 100 MG Capsule Take 100 mg by mouth 2 times daily. Yes Provider, Not On File Enulose 10 GM/15ML Solution Take 20 g by mouth daily. 01/30/23 Yes Melody Aguilar MD lactulose (CHRONULAC) 10 GM/15ML Solution TAKE 30CC BY MOUTH ONCE DAILY Patient not taking: Reported on 07/28/2023 12/28/21 Irving Jeffries MD metoprolol tartrate (LOPRESSOR) 25 MG Tablet Take 1 Tablet by mouth 2 times daily for 90 days. 08/07/23 11/05/23 Yes Annie Jeffries MD omeprazole (PriLOSEC) 20 MG CAPSULE DELAYED RELEASE Take 1 Capsule by mouth in the morning and at bedtime. 07/14/23 Yes Michael Ahmadi MD Psyllium (REGULOID PO) Take by mouth 2 times daily. 1 TABLESPOON IN 8OZ WATER Yes Provider, Not On File rivaroxaban (XARELTO) 20 MG Tablet Take 1 Tablet by mouth daily (with dinner). Take with food. Indications: Atrial Fibrillation Patient not taking: Reported on 08/10/2023 08/07/23 Annie Jeffries MD sertraline (ZOLOFT) 50 MG Tablet Take 50 mg by mouth daily. Yes Provider, MD Melody There are no discontinued [...] Immunization (1 - Tdap) Never done ??? Respiratory Syncytial Virus (RSV) Immunization (Adult - or age 60+ years) (1 - 1-dose 60+ series) Never done ??? Pneumococcal Immunization (65+ years) (2 of 2 - PPSV23 or PCV20) 05/14/2016 ??? Zoster Immunization (2 of 3) 07/19/2016 Orders Pended: no The following BPA's have been addressed with the patient today: Flu, Smoking, Depression and Fall Risk GY EFFICIENT SITE MANAGER * Irving Jeffries MD - 08/14/2023 3:00 PM CST PROGRESS NOTE [facility] [address] [place] [address] PHONE: [phone] FAX: [phone] 08/14/2023 NAME: Iván Dumont, : 1945, Assessment ASSESSMENT & PLAN: No follow-ups on file. Diagnoses and all orders for this visit: Acute respiratory failure with hypoxia (HCC) Comments: Due to RSV pneumonia. Resolved. Paroxysmal atrial fibrillation (HCC) Comments: Restart Xarelto at 15 mg daily. Continue metoprolol. Essential hypertension, benign Comments: Controlled. Continue current medication. GERD without esophagitis Comments: Stable. Continue current medication. Thrombocytopenia (HCC) Comments: Continue follow-up with tomographic tech. Elevated PSA Comments: Continue follow-up with urologist. Urinary retention Comments: Currently has Cedillo catheter in place. Advised to have follow-up with urologist. Other orders - rivaroxaban (XARELTO) 15 MG Tablet; Take 1 Tablet by mouth daily. Take with food. Indications: Atrial Fibrillation Patient [facility] at [facility]. Hospital records reviewed. Chief Complaint Patient presents with ??? Post-Hospital Follow-up RSV, Pnuemonia HPI Patient is here for follow-up from recent hospitalization. Patient was hospitalized with diagnosis sepsis due to RSV pneumonia leading to acute respiratory failure. Recently also had to go back to ERdue to blood in the urine. Patient has indwelling Cedillo catheter for urinary retention. Xarelto was discontinue. Now urine is clear. At present patient is feeling well. No shortness of breath. No cough. Appetite is normal now. No abdominal pain. Tolerating medications well. ROS Review of systems was negative, except as documented in HPI PHYSICAL EXAM VITALS: Wt Readings from Last 3 Encounters: 08/14/23 191 lb (86.6 kg) 08/10/23 190 lb (86.2 kg) 08/09/23 205 lb (93 kg) Temp Readings from Last 3 Encounters: 08/14/23 98 ??F (36.7 ??C) (Temporal) 08/14/23 97.1 ??F (36.2 ??C) 08/11/23 97.3 ??F (36.3 ??C) BP Readings from Last 3 Encounters: 08/14/23 110/56 08/14/23 108/62 08/11/23 110/58 Pulse Readings from Last 3 Encounters: 08/14/23 68 08/14/23 78 08/11/23 67 Physical Exam Vitals and nursing note reviewed. [...] ??? amLODIPine (NORVASC) 10 MG Tablet ??? cephALEXin (Keflex) 500 MG Capsule ??? CLOZAPINE PO ??? docusate sodium (COLACE) 100 MG Capsule ??? Enulose 10 GM/15ML Solution ??? metoprolol tartrate (LOPRESSOR) 25 MG Tablet ??? omeprazole (PriLOSEC) 20 MG CAPSULE DELAYED RELEASE ??? Psyllium (REGULOID PO) ??? rivaroxaban (XARELTO) 15 MG Tablet ??? sertraline (ZOLOFT) 50 MG Tablet I educated Iván regarding diagnoses and plan of care. He verbalizes understanding and will call the office if situation changes. Voice recognition software was utilized in this dictation. Despite proof reading, typographical errors and/or content errors may have occurred. By: Irving Jeffries MD 08/14/2023 3:26 PM ENERGY EFFICIENT SITE MANAGER GY EFFICIENT SITE MANAGER documented in this encounter Plan of Treatment Not on file documented as of this encounter Visit Diagnoses Diagnosis Acute respiratory failure with hypoxia (HCC)- Primary Acute respiratory failure Paroxysmal atrial fibrillation (HCC) Atrial fibrillation Essential hypertension, benign GERD without esophagitis Esophageal reflux Thrombocytopenia (HCC) Thrombocytopenia, unspecified Elevated PSA Elevated prostate specific antigen (PSA) Urinary retention Retention of urine, unspecified documented in this encounter Additional Health Concerns 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 07/28/2023 09/04/2023 8:45 AM ENERGY EFFICIENT SITE MANAGER Assessment Noted Time PHQ-9 Depression Total Score: 0 08/14/19 3:02 PM ENERGY EFFICIENT SITE MANAGER documented as of this encounter Care Teams Floor Service Worker Spring Relationship Specialty Start Date End Date Irving Jeffries MD [address] [place] [address] PCP - General Internal Medicine 07/16/21 07/04/24 Ton Ling, FOLDER SEAMER AUTOMATIC, REFINING ENGINEER [address] [place] [address] Nurse Practitioner Advanced Practice Nurse 04/24/23 Michael Ahmadi MD [address] [place] [address] Consulting Physician Medical Oncology 07/26/23 documented as of this encounter
--- OUTSIDE RECORDS SUMMARY | 2024-07-28 14:08 | XMS_ITS | Encounter Summary ---
Author Organization [facility] Address [address] [place] [address] Phone Care Team Providers Care Breaker Table Worker Name Role Phone Irving Jeffries MD Primary Care Provider [phone] Ton Ling APRN, ASSISTANT KITCHEN MANAGER Unavailable [phone] Michael Ahmadi MD Unavailable [phone] Reason for Visit * Auth/Cert (Routine) Specialty Diagnoses / Procedures Referred By Contclay t Referred To Contact Referral ID Status Reason Start Date Expiration Date Visits Re quested Visits Authorized [id number] 1 1 Encounter Details Date Type Department Care Team (Late st Contact Info) Description 08/14/2023 2:00 PM TUBE REBUILDER Home Care Visit [facility] [address] [place] [address] Bea Rivera, OT OT - INITIAL EVALUATION Social History Tobacco Use Types Packs/Day Years Used Date Smoking Tobacco: Former Cigarettes 2 20 Passive Smoke Exposure: Past Smokeless Tobacco: Never Alcohol Use Standard Drinks/Week Comments Not Currently 0 (1 standard drink = 0.6 oz pur e alcohol) [facility] Utilities Answer Date Recorded In [...] How often do you attend chur or amish services? Patient unable to answer 08/14/2023 Do [...] 07/31 [facility] Stress Questionnaire Answer [...] slept in a long-term (including now)? Patient unable to answer 08/14/2023 Sexually Active Control Partners Comments Never Sex and Gender Information Value Date Recorded Sex Assigned at Not on file Legal Sex Male 11:18 PM CDT Gender Identity Not on file Sexual Orientation Not on file documented as of this encounter Last Filed Vital Signs Vital Sign Reading Time Taken Comments Blood Pressure 108/62 08/14/2023 1:02 PM TUBE REBUILDER Pulse 78 08/14/2023 1:02 PM TUBE REBUILDER Temperature 36.2 ??C (97.1 ??F) 08/14/2023 1:02 PM CS T Respiratory Rate 18 08/14/2023 1:02 PM TUBE REBUILDER Oxygen Saturation 96% 08/14/2023 1:02 PM TUBE REBUILDER Inhaled Oxygen Concentration - - Weight - - Height - - Body Mass Index - - documented in this encounter Functional Status * [...] Ashby CMA documented as of this encounter Plan of Treatment Not on file documented as of this encounter Visit Diagnoses Not on filedocumented in this encounter Additional Health Concerns 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 07/28/2023 09/04/2023 8:45 AM TUBE REBUILDER Assessment Noted Time PHQ-9 Depression Total Score: 0 08/14/19 24 3:02 PM TUBE REBUILDER documented as of this encounter Home Health Visit - Care Plan Visit Details Visit Type -OT - INITIAL ZAC LUATION Discipline -Occupational Therapy Problems Problem Description Start Date Status Goals Interve ntions FALL PREVENTION (O) Disciplines: SN, PT, OT, ACQUISITION COST ESTIMATOR, HCA, PILOT SAFETY INSPECTOR, RT 08/09/2023 Active 1 goal linked to scheduled/document ed intervention 1 goal intervention scheduled/documente d in this visit ALL VITAL SIGN PARAMETERS Disciplines: All Home Care 08/09/2023 Active - 1 problem intervention scheduled/documente d in this visit OCCUPATIONAL THERAPY EVAL ONLY (O) Disciplines: Occupational Therapy 08/14/2023 Active - 1 problem intervention scheduled/documente d in this visit Goals Goal Associated Problem Outcome Goal Met? Visit Notes Fall Prevention Description: Shared goal applicable to all disciplines with a visit frequency order. Patient/ Caregiver will verbalize understanding of identified fall risk based on [facility]-10 Fall Risk assessment and methods to prevent falls. Target date: 09/09/23 FALL PREVENTION (O) No Interventions Intervention Associated Problem/Goal Status Variance [...] measures. Problem:ALL HH VITAL SIGN PARAMETERS Completed OT Eval Only (O) Description: Clinical Findings: [facility] OT referral received for diagnosis of pneumonia, sepsis. Pt seen for initial OT eval only. Pt and caregiver were educated on benefits and purpose of OT services. Pts caregiver report and presents with baseline/max potential for ADLs, functional transfers/mobilities. Pts caregiver worried about catheter and his visual SOB even though he denies SOB. Pts caregiver reports he is doing well with ADLs and has no concerns except for the catheter being pulled out. Pt and caregiver reminded there is a sepsis education handout in the [facility] folder for review and verbalized understanding. Pt is agreeable to discharge at this time. D/C from [facility] OT. D/C summary available upon request. Occupational Therapist recommendation: continue to be active and walk, do not lay in bed Patient verbalized understanding and is in agreement with this plan: yes Perform pulse oximetry PRN for intermittent assessment and/ or respiratory distress. Problem:OCCUPATIONA L THERAPY EVAL ONLY (O) Completed Occupational Therapy evaluation completed, see order text for findings. Medication reconciliation performed yes. Needs/ changes identified: no. -Action taken: no action required. Vital signs outside of ordered parameters? no Physician notified? no. documented in this encounter Home Health Visit - Actions and Narratives Narratives Pt was inpatient 07/28/23-08/07/23 with acute respiratory failure. He was found to be in a-fib with RVR and also required oxygen. He was also found to have leucocytosis and RSV/pneumonia/sepsis. He went back into the ED with blood in his catheter. He returned home and lives in a long-term with 24 hours care. Pts caregiver reports he is doing good but she is worried about the catheter and him puliing out the catheter. He is min assist for gait no device reaching for furniture and [place], unsafely and unsafely negotiating his catheter X 20 feet. PMH: schizophrenia, arthritis, stroke, anxiety, depression, GERD, hypertension. documented in this encounter Care Teams Breaker Table Worker Relationship Specialty Start Date End Date Irving Jeffries MD [address] [place] [address] PCP - General Internal Medicine 07/16/21 07/04/24 Ton Ling APRN, ASSISTANT KITCHEN MANAGER [address] [place] [address] Nurse Practitioner Advanced Practice Nurse 04/24/23 Michael Ahmadi MD [address] [place] [address] Consulting Physician Medical Oncology 07/26/23 documented as of this encounter
--- OUTSIDE RECORDS SUMMARY | 2024-07-28 14:08 | XMS_ITS | Encounter Summary ---
Author Organization [facility] Address [address] [place] [address] Phone Care Team Providers Care Lens Blocker Name Role Phone Irving Jeffries MD Primary Care Provider [phone] Ton Ling APRN, SUPPLY AND DISTRIBUTION MANAGER Unavailable [phone] Michael Ahmadi MD Unavailable [phone] Reason for Visit * Auth/Cert (Routine) Specialty Diagnoses / Procedures Referred By Contclay t Referred To Contact Referral ID Status Reason Start Date Expiration Date Visits Re quested Visits Authorized [id number] 1 1 Encounter Details Date Type Department Care Team (Late st Contact Info) Description 08/18/2023 [facility] [address] [place] [address] Shawna Good, RN [place]-CLINICAL SUPPORT/TRIAGE Social History Tobacco Use Types Packs/Day Years Used Date Smoking Tobacco: Former Cigarettes 2 20 Passive Smoke Exposure: Past Smokeless Tobacco: Never Alcohol Use Standard Drinks/Week Comments Not Currently 0 (1 standard drink = 0.6 oz pur e alcohol) [facility] Utilities Answer Date Recorded In [...] How often do you attend chur or anabaptist services? Patient unable to answer 08/14/2023 Do [...] [facility] Occupat ional Health - Occupational Stress [...] Time 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 07/28/2023 09/04/2023 8:45 AM INDEPENDENT CROP CONSULTANT Assessment Noted Time PHQ-9 Depression Total Score: 0 08/14/19 24 3:02 PM INDEPENDENT CROP CONSULTANT documented as of this encounter Care Teams Lens Blocker Relationship Specialty Start Date End Date Irving Jeffries MD [address] [place] [address] PCP - General Internal Medicine 07/16/21 07/04/24 Ton Ling, WARP KNIT OPERATOR, SUPPLY AND DISTRIBUTION MANAGER [address] [place] [address] Nurse Practitioner Advanced Practice Nurse 04/24/23 Michael Ahmadi MD [address] [id number] Consulting Physician Medical Oncology 07/26/23 documented as of this encounter
--- OUTSIDE RECORDS SUMMARY | 2024-07-28 14:08 | XMS_ITS | Encounter Summary ---
Author Organization [employer] Care Team Providers Care Chief Librarian Circulation Department Name Role Phone Irving Jeffries MD Primary Care Provider [phone] Ton Ling APRN, LEARNING DEVELOPER Unavailable [phone] Michael Ahmadi MD Unavailable [phone] Encounter Details Date Type Department Care Team (Latest Contact Info) Description 08/14/2023 Travel Social History Tobacco Use Types Packs/Day Years Used Date Smoking Tobacco: Former Cigarettes 2 20 Passive Smoke Exposure: Past Smokeless Tobacco: Never Alcohol Use Standard Drinks/Week Comments Not Currently 0 (1 standard drink = 0.6 oz pur e alcohol) [facility] Utilities Answer Date Recorded In the past 12 months has [employer] electric, gas, oil, or water company threatened [...] often do you attend chur ch or congregational services? Patient unable to answer 08/14/2023 Do you belong to any clubs o r organizations such as mandaen groups, unions, fraternal or athletic groups, or [...] on file documented as of this encounter Functional Status * Audit-C Score [...] Patient unable to answer 08/14/2023 3:01 PM SLEEVE BASTER Scarlet Clark CMA * Question Answer Date of Assessment [...] Time 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 07/28/2023 09/04/2023 8:45 AM SLEEVE BASTER Assessment Noted Time PHQ-9 Depression Total Score: 0 08/14/19 3:02 PM SLEEVE BASTER documented as of this encounter Care Teams Chief Librarian Circulation Department Relationship Specialty Start Date End Date Irving Jeffries MD [address] [place] [address] PCP - General Internal Medicine 07/16/21 07/04/24 Ton Ling, BUFFING MACHINE OPERATOR, LEARNING DEVELOPER [address] [place] [address] Nurse Practitioner Advanced Practice Nurse 04/24/23 Michael Ahmadi MD [address] [place] [address] Consulting Physician Medical Oncology 07/26/23 documented as of this encounter
--- OUTSIDE RECORDS SUMMARY | 2024-07-28 14:08 | XMS_ITS | Encounter Summary ---
Author Organization [facility] Address [address] [place] [address] Phone Care Team Providers Care Charter Boat Operator Name Role Phone Irving Jeffries MD Primary Care Provider [phone] Ton Ling APRN, SENIOR CONTRACT SPECIALIST Unavailable [phone] Michael Ahmadi MD Unavailable [phone] Reason for Visit * Auth/Cert (Routine) Specialty Diagnoses / Procedures Referred By Contclay t Referred To Contact Referral ID Status Reason Start Date Expiration Date Visits Re quested Visits Authorized [id number] 1 1 Encounter Details Date Type Department Care Team (Late st Contact Info) Description 08/10/2023 11:00 AM SOCIAL SERVICE MANAGER [facility] [address] [place] [address] Bea Clark RN [place] - PRIORITY VISIT Social History Tobacco Use Types Packs/Day Years Used Date Smoking Tobacco: Former Cigarettes 2 20 Smokeless Tobacco: Never Alcohol Use Standard Drinks/Week Comments Not Currently 0 (1 standard drink = 0.6 oz pur e alcohol) [facility] Utilities Answer Date Recorded In the [...] declined 07/28/2023 How often do you attend jehovah's witness or jainism serv ices? Patient declined 07/28/2023 Do you belong to any clubs o r organizations such as jehovah's witness groups, unions, fraternal or athletic groups, or [...] medical care, and heating? Patient declined 07/28/2023 [facility] - Occupational Stress Questionnaire Answer [...] in a alf (including now)? Patient declined 07/28/2023 Sex and Gender Information Value Date Recorded Sex Assigned at Not on file Legal Sex Male 11:18 PM CDT Gender Identity Not on file Sexual Orientation Not on file documented as of this encounter Last Filed Vital Signs Vital Sign Reading Time Taken Comments Blood Pressure 110/60 08/10/2023 1:00 PM SOCIAL SERVICE MANAGER Pulse 76 08/10/2023 1:00 PM SOCIAL SERVICE MANAGER Temperature 36.4 ??C (97.5 ??F) 08/10/2023 1:00 PM CS T Respiratory Rate - - Oxygen Saturation 95% 08/10/2023 1:00 PM SOCIAL SERVICE MANAGER Inhaled Oxygen Concentration - - Weight - - Height - - Body Mass Index - - documented in this encounter Plan of Treatment Not on file documented as of this encounter Visit Diagnoses Not on filedocumented in this encounter Additional Health Concerns 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 07/28/2023 09/04/2023 8:45 AM SOCIAL SERVICE MANAGER documented as of this encounter Home Health Visit - Care Plan Visit Details Visit Type -SN - Priority Vi sit Discipline -Jail Problems Problem Description Start Date Status Goals Interve ntions FALL PREVENTION (O) Disciplines: SN, PT, OT, FIRE LIEUTENANT, HCA, ASSISTANT COUNTY ENGINEER, RT 08/09/2023 Active 1 goal linked to scheduled/documen hector intervention 1 goal intervention scheduled/document ed in this visit ALL HH VITAL SIGN PARAMETERS Disciplines: All Home Care 08/09/2023 Active - 1 problem intervention scheduled/document ed in this visit PNEUMONIA ORDERS Disciplines: Jail Pneumonia Orders 08/09/2023 Active 1 goal linked to scheduled/documen hector intervention 1 goal intervention scheduled/document ed in this visit SAFETY/PREVENTI ON EDUCATION Disciplines: Jail Safety/Preventio n Education 08/09/2023 Active - 1 problem intervention scheduled/document ed in this visit SN GENERAL ORDERS Disciplines: Jail SN General Orders 08/09/2023 Active 1 goal linked to scheduled/documen hector intervention 2 goal interventions scheduled/document ed in this visit INDWELLING CATHETER CARE Disciplines: Jail Indwelling Catheter Care 08/09/2023 Active 1 goal linked to scheduled/documen hector intervention 1 goal intervention scheduled/document ed in this visit SN ADDITIONAL CARE/TX/DM Disciplines: Jail SN Additional Care/Treatment 08/09/2023 Active - 1 problem intervention scheduled/document [...] went into afib w/[facility]. Patient lives at skilled nursing with 24 hour care. Skilled Nurse Focus: catheter maintenance/education Physical Therapy to evaluate and treat for: weakness, deconditioning Occupational Therapy to evaluate and treat for: ADL education with strength conservation Speech Therapy to evaluate and treat for: none ordered Social Work Focus: none ordered Coding Team Lead to provide: none ordered Past Medical [...] Problem:INDWELLING CATHETER CARE Goal:Indwelling Catheter Care Completed SN Additional Care/ Treatment (O) Description: Flush catheter prn if not draining Problem:SN ADDITIONAL CARE/TX/DM Completed Catheter not draining. Attempted to flush with 60 ml sterile water. No return flow. documented in this encounter Care Teams Charter Boat Operator Relationship Specialty Start Date End Date Irving Jeffries MD [address] [place] [address] PCP - General Internal Medicine 07/16/21 07/04/24 Ton Ling APRN, SENIOR CONTRACT SPECIALIST [address] [place] [address] Nurse Practitioner Advanced Practice Nurse 04/24/23 Michael Ahmadi MD [address] [place] [address] Consulting Physician Medical Oncology 07/26/23 documented as of this encounter
--- OUTSIDE RECORDS SUMMARY | 2024-07-28 14:09 | XMS_ITS | Encounter Summary ---
Author Organization [employer] Care Team Providers Care Farrowing Worker Name Role Phone Irving Jeffries MD Primary Care Provider [phone] Ton Ling APRN, TEAM MEMBER Unavailable Michael Ahmadi MD Unavailable [phone] Encounter Details Date Type Department Care Team (Latest Contact Info) Description 07/26/2023 Travel Social History Tobacco Use Types Packs/Day Years Used Date Smoking Tobacco: Former Cigarettes 2 20 Smokeless Tobacco: Never Alcohol Use Standard Drinks/Week Comments Yes 0 (1 standard drink = 0.6 oz pur e alcohol) Sex and Gender Information Value Date Recorded Sex Assigned at Not on file Legal Sex Male 11:18 PM CDT Gender Identity Not on file Sexual Orientation Not on file documented as of this encounter Plan of Treatment Not on file documented as of this encounter Visit Diagnoses Not on filedocumented in this encounter Care Teams Farrowing Worker Relationship Specialty Start Date End Date Irving Jeffries MD [address] [place] [address] PCP - General Internal Medicine 07/16/21 07/04/24 Ton Ling APRN, TEAM MEMBER [address] [place] [address] Nurse Practitioner Advanced Practice Nurse 04/24/23 Michael Ahmadi MD [address] [place] [address] Consulting Physician Medical Oncology 07/26/23 documented as of this encounter
--- OUTSIDE RECORDS SUMMARY | 2024-07-28 14:09 | XMS_ITS | Encounter Summary ---
Author Organization [facility] Address [address] [facility] [address] Phone Care Team Providers Care Ball Worker Name Role Phone Irving Jeffries MD Primary Care Provider [phone] Reason for Visit * Reason Comments Follow-up Encounter Details Date Type Department Care Team (Latest Contact Info) Description 03/29/2023 10:15 AM CDT Office Visit [facility] Oncology Services [address] [place] [id number] Gilda Hagen, PAC [address] [place] [address] Thrombocytopenia (HCC) (Primary Dx); Chronic undifferentiated schizophrenia (HCC); Need for hepatitis C screening test Discharge Disposition: Discharged to home or Selfcare [...] on file Sexual Orientation Not on file COVID-19 Exposure Response Date Recorded In the last 10 days, have yo u been in contact with someone who was confirmed or suspected to have Coronavirus/COVID-19? No / Unsure 03/29/2023 9:58 AM CDT documented as of this encounter Last Filed Vital Signs Vital Sign Reading Time Taken Comments Blood Pressure 139/82 03/29/2023 10:10 AM CDT Pulse 84 03/29/2023 10:10 AM CDT Temperature 36.7 ??C (98 ??F) 03/29/2023 10:10 AM CDT Respiratory Rate 18 03/29/2023 10:10 AM CDT Oxygen Saturation 97% 03/29/2023 10:10 AM CDT Inhaled Oxygen Concentration - - Weight 93.5 kg (206 lb 3.2 oz) 03/29/2023 10:10 AM CDT Height 182.9 cm (6') 03/29/2023 10:10 AM CDT Body Mass Index 27.97 03/29/2023 10:10 AM CDT documented in this encounter Patient Instructions * Patient Instructions* Gilda Hagen PAC - 03/29/2023 10:15 AM CDT Continue to monitor CBC/iron and ferritin level on a monthly basis. Plan follow-up in 4 months with labs just prior. If platelet count drops below 15,000 follow-up sooner. If evidence of excessive bruising/bleeding occur scheduled follow-up sooner. Will evaluate for hepatitis-C with next labs. If you are required to have labs/ testing done PRIOR to follow up, please have testing completed nolater than 2-5 days prior to appointment. If you do not have testing completed prior to your scheduled follow-up appointment you will be asked to reschedule until testing completed All patients are expected to check in with registration 15 minutes prior to all appointments. Patients who arrive 15 minutes or more after their scheduled appointment time may be required to reschedule. Please schedule follow-up in near future to discuss any concerns that were not addressed fully at today's office visit. To continue to provide excellent patient care, you may receive a survey regarding your visit today.To help us serve you better, please complete and return. These surveys are completely anonymous. If you have any concerns/ questions regarding today's visit, please call. If you experience any new or worsening symptoms, please call or go to the emergency department. documented in this encounter Progress Notes * Gilda Hagen PAC - 03/29/2023 10:15 AM CDT Outpatient Hem/Onc Progress Note Iván Dumont is a 77 y.o. male who presents for 2 week follow-up for thrombocytopenia/review labs. Offers no complaints or concerns. In general feels well. Denies any uncontrolled bleeding/ bruising. ALLERGIES: No Known Allergies MEDICATIONS: Current Outpatient Medications Medication Sig Dispense Refill ??? acetaminophen (TYLENOL) 325 MG Tablet Take 650 mg by mouth. ??? amLODIPine (NORVASC) 10 MG Tablet Take 1 Tablet by mouth daily. 30 Tablet 11 ??? CLOZAPINE PO Take by mouth. 50 mg at bedtime, 150 mg in the morning ??? docusate sodium (COLACE) 100 MG Capsule Take 100 mg by mouth 2 times daily. ??? Enulose 10 GM/15ML Solution ??? lactulose (CHRONULAC) 10 GM/15ML Solution TAKE 30CC BY MOUTH ONCE DAILY 946 mL 11 ??? omeprazole (PriLOSEC) 20 MG CAPSULE DELAYED RELEASE TAKE ONE CAPSULE BY MOUTH EVERY DAY 30 Capsule 7 ??? Psyllium (REGULOID PO) Take by mouth 2 times daily. 1 TABLESPOON IN 8OZ WATER ??? sertraline (ZOLOFT) 50 MG Tablet Take 50 mg by mouth daily. No current facility-administered medications for this visit. PMS/H: Past Medical History Positives Diagnosis Date ??? Arthritis ??? Stroke (HCC) No past surgical history on file. SOCIAL: Social History Socioeconomic History ??? Marital status: Single Spouse name: Not on file ??? Number of children: Not on file ??? Years of education: Not on file ??? Highest education level: Not on file Occupational History ??? Not on file Tobacco Use ??? Smoking status: Former Packs/day: 2.00 Years: 20.00 Pack years: 40.00 Types: Cigarettes ??? Smokeless tobacco: Never Vaping Use ??? Vaping Use: Never used Substance and Sexual Activity ??? Alcohol use: Yes ??? Drug use: Never ??? Sexual activity: Not on file Other Topics Concern ??? Not on file Social History Narrative ??? Not on file FAMILY HX: No family history on file. VITAL SIGNS: Vitals: 03/29/23 1010 BP: 139/82 BP Location: Right Arm BP Position: Sitting BP Cuff Size: Regular Pulse: 84 Resp: 18 Temp: 98 ??F (36.7 ??C) SpO2: 97% Weight: 206 lb 3.2 oz (93.5 kg) Height: 6' (1.829 m) GENERAL EXAM: GENERAL: Well developed, well nourished, in no acute distress. AAO x3. Cooperative. HEENT: Normocephalic. PERRLA. Nonicteric. NECK: Supple/ non tender/ full ROM LYMPH NODES: No adenopathy. CARDIOVASCULAR: RRR/ S1S2/ No m/g/c/r. PULMONARY: Respirations easy and regular. Breath sounds clear bilaterally. No rhonchi/ rales/ wheezes. MUSCULOSKELETAL: Normal gait and movement of extremities. SKIN: General-warm, pink and dry. No rashes/ lesions. PSYCHIATRIC: Euthymic. Affect congruent with mood. Normal thought process. PAIN ASSESSMENT: 0 DATA: Results for orders placed or performed in visit on 03/15/23 CMP (COMPREHENSIVE METABOLIC PANEL) Result Value Ref Range SODIUM 141 136 - 145 mmol/L POTASSIUM 4.2 3.5 - 5.1 mmol/L CHLORIDE 107 98 - 107 mmol/L CO2, VENOUS 22 22 - 30 mmol/L ANION GAP 16.2 <18.0 mmol/L GLUCOSE 122 (H) 70 - 99 mg/dL BUN 12 8 - 26 mg/dL CREATININE, BLOOD 0.85 0.70 - 1.30 mg/dL BUN/CREATININE RATIO 14 12 - 20 ratio TOTAL PROTEIN 7.4 6.3 - 8.2 g/dL ALBUMIN 4.2 3.5 - 5.0 g/dL A/G RATIO 1.3 1.0 - 2.2 CALCIUM 9.0 8.7 - 10.5 mg/dL T BILI 0.3 0.2 - 1.2 mg/dL SGOT (AST) 18 5 - 34 U/L SGPT (ALT) 28 0 - 55 U/L ALKALINE PHOSPHATASE 72 40 - 150 U/L IS THE PATIENT REQUIRED TO BE FASTING? No GFR, ESTIMATED >60 >=60 GFR, EST. >60 >=60 GFR, EST. NONAFRICAN >60 >=60 LIPID PANEL Result Value Ref Range CHOLESTEROL 168 <200 mg/dL TRIGLYCERIDES 611 (H) <150 mg/dL HDL CHOLESTEROL 24 (L) >40 mg/dL LDL VLDL CHOL/HDL RATIO 7.0 (H) 0.0 - 4.4 NON-HDL CHOLESTEROL 144 (H) <130 mg/dL PSA SCREEN Result Value Ref Range PSA SCREEN, TOTAL 9.18 (H) <4.00 ng/mL ERYTHROCYTE SEDIMENTATION RATE (ESR) Result Value Ref Range ESR (SED RATE, ERYTHROCYTE SEDIMENTATION RATE) 23 (H) <20 mm/h FOLIC ACID (FOLATE) Result Value Ref Range FOLATE 11.3 7.0 - 31.4 ng/mL IS THE PATIENT REQUIRED TO BE FASTING? No FERRITIN Result Value Ref Range FERRITIN 24 22 - 274 ng/mL VITAMIN B12 Result Value Ref Range VITAMIN B12 486 213 - 816 pg/mL RETICULOCYTE COUNT (RETIC) Result Value Ref Range RETICULOCYTES 1.6 0.5 - 2.0 % LACTATE DEHYDROGENASE (LD) Result Value Ref Range LDH 192 125 - 220 U/L FREE KAPPA & LAMBDA LIGHT CHAINS SERUM Result Value Ref Range Free [place] Lt Chn 31.11 (H) 3.30 - 19.40 mg/L Free Lambda Lt Chn 22.55 5.71 - 26.30 mg/L free penny shelton ratio 1.38 0.26 - 1.65 IMMUNOFIXATION W/ ELECTROPHORESIS SERUM Result Value Ref Range TOTAL PROTEIN 7.1 6.3 - 8.2 g/dL % ALBUMIN 55.6 (L) 55.8 - 66.7 % ALBUMIN SERUM 4.0 2.5 - 5.4 g/dL % ALPHA 1 GLOBULIN 3.3 2.9 - 4.9 % ALPHA 1 0.2 0.2 - 0.4 g/dL % ALPHA 2 GLOBULIN 10.3 7.1 - 11.8 % ALPHA 2 0.7 0.5 - 1.0 g/dL % BETA 13.4 (H) 8.4 - 13.1 % BETA-GLOBULIN 1.0 0.5 - 1.1 g/dL % GAMMA GLOBULIN 17.3 11.1 - 18.8 % GAMMA 1.2 0.7 - 1.5 g/dL IMMUNOGLOBULIN G 1,139 540 - 1,822 mg/dL IMMUNOGLOBULIN A 44 (L) 101 - 645 mg/dL IMMUNOGLOBULIN M 234 22 - 240 mg/dL INTERPRETATION SERUM No abnormal protein band is detected by serum protein electrophoresis. Serum immunofixation electrophoresis is negative for monoclonal immunoglobulins. Reviewed by Viridiana Iyer, Ph.D. A/G RATIO, SERUM 1.3 IRON,TRANSFERN,CALC.TIBC,%SAT Result Value Ref Range IRON 93 31 - 144 mcg/dL TRANSFERRIN 284 163 - 344 mg/dL TIBC, CALCULATED 355 261 - 462 mcg/dL % SATURATION * 26 15 - 62 % PERIPHERAL BLOOD, FLOW CYTOMETRY Result Value Ref Range FINAL DIAGNOSIS Peripheral blood, flow cytometric analysis: - No abnormal lymphoid or increased progenitor cell population is detected. Specimen Source Received in an EDTA anticoagulated tube is 3mL peripheral blood. Microscopic Description Peripheral blood smear review shows features concordant with flow cytometric findings. Specimen processed and evaluated at [facility], [place], [place]. This document was completed utilizing speech recognition software. Grammatical errors, random word insertions, pronoun errors, and incomplete sentences are an occasional consequence of this system due to software limitations, ambient noise, and hardware issues. Any formal questions or concerns about the content, text or information contained within the body of this dictation should be directly addressed to the provider for clarification. Immunophenotypic Findings Flow cytometric analysis shows a heterogeneous cellular population. Blasts are not increased. Immunophenotypically unremarkable/nonspecific T-cells (CD4:CD8 = 2.3) and polyclonal B-cells are present. CELL POPULATIONS: 69% granulocytes, 11% monocytes, 18% lymphocytes with T-cell majority, <1% blasts. Phenotyping Markers Utilized Flow markers performed (23): CD2, CD3, CD4, CD5, CD7, CD8, CD10, CD13, CD15, CD19, CD20, CD33, CD34, CD38, CD45, CD56, CD117, CD123, CD200, kappa, lambda, HLA-DR, TCR gamma/delta This test was developed and its performance characteristics determined by [facility]. Ithas not been cleared or approved by the U.S. Food and Drug Administration. Case Report Flow Cytometry Report Case: [id number] Authorizing Provider: Gilda Hagen Monika, PAC Collected: 03/15/2023 11:31 AM Ordering Location: [facility] Received: 03/15/2023 12:35 PM [facility] Oncology Services Pathologist: Pankaj Altamirano MD Specimen: Blood, blood CBC WITH AUTO DIFFERENTIAL Result Value Ref Range WBC 7.30 4.00 - 12.00 10(3)/mcL RBC 4.38 (L) 4.40 - 5.80 10(6)/mcL HEMOGLOBIN (HGB) 13.3 13.0 - 16.5 g/dL HEMATOCRIT (HCT) 41.3 38.0 - 50.0 % MCV 94.3 82.0 - 96.0 fL MCH 30.4 26.0 - 32.0 pg MCHC 32.2 31.0 - 36.0 g/dL PLATELET COUNT 79 (L) 140 - 440 10(3)/mcL RDW 13.5 11.8 - 15.5 % MPV NEUTROPHILS 68.6 (H) 40.0 - 68.0 % LYMPHOCYTES 18.8 (L) 19.0 - 49.0 % MONOCYTES 12.1 3.0 - 13.0 % EOSINOPHILS 0.0 0.0 - 8.0 % BASOPHILS 0.5 0.0 - 1.0 % ABSOLUTE NEUTROPHILS 5.01 1.40 - 5.30 10(3)/mcL ABSOLUTE LYMPHOCYTES 1.37 0.90 - 3.30 10(3)/mcL ABSOLUTE MONOCYTES 0.88 0.10 - 0.90 10(3)/mcL ABSOLUTE EOSINOPHIL 0.00 0.00 - 0.50 10(3)/mcL ABSOLUTE BASOPHILS 0.04 0.00 - 0.10 10(3)/mcL NRBC PER 100 WBC 0 DIAGNOSTIC IMAGING STUDIES: US ABDOMEN COMPLETE Narrative: EXAM DESCRIPTION: US ABDOMEN COMPLETE REASON FOR STUDY: Thrombocytopenia, assess for splenomegaly. TECHNIQUE: Dynamic and static images acquired of the abdomen and recorded on PACS. Additional selected color Doppler and spectral images recorded. COMPARISON: None available. FINDINGS: PANCREAS: Visualized portions of the pancreas are within normal limits. Portions of the pancreatic body and tail are obscured due to bowel gas. LIVER: Measures 16.2 cm and is increased in echogenicity. There is no focal hepatic lesion. LIVER VASCULATURE: Normal directional flow of the main portal and hepatic veins. GALLBLADDER: Multiple echogenic shadowing gallstones, the largest 1.9 cm. No gallbladder wall thickening. No pericholecystic fluid. Negative sonographic Villalba's sign reported. BILIARY: No intrahepatic ductal dilatation. Common bile duct measures 0.5 cm. INFERIOR VENA CAVA: Unremarkable. AORTA: No abdominal aortic aneurysm. Abdominal aorta measures up to 2.5 cm. RIGHT KIDNEY: Kidney measures 12.5 cm. There is normal echogenicity and normal cortical thickness. There is no hydronephrosis. Lower pole cyst 1.1 x 0.9 x 1.0 cm. LEFT KIDNEY: Kidney measures 11.8 cm. There is normal echogenicity and normal cortical thickness. There is no hydronephrosis. Left renal cyst 1.0 x 1.2 x 0.9 cm. SPLEEN: Measures 11.5 cm with no focal lesion. Round structure probable splenule 2.1 cm. PERITONEAL AND PLEURAL SPACES: No ascites or pleural effusion. OTHER: No other significant abnormality. THIS IS AN ELECTRONICALLY VERIFIED FINAL REPORT 03/21/2023 5:58 PM - Electronically signed by Gopi Beth M.D. CH: SAÚL Report ID: [id number] Reading Location: [id number] Impression: IMPRESSION: No evidence of an acute abnormality. Spleen size is normal. Cholelithiasis with no secondary features of acute cholecystitis. Bilateral renal cysts. Hepatic steatosis. Assessment: Diagnoses and all orders for this visit: Thrombocytopenia (HCC) - COMPLETE BLOOD COUNT (CBC) WITH DIFF; Standing - FERRITIN; Standing - IRON,TRANSFERN,CALC.TIBC,%SAT; Standing Chronic undifferentiated schizophrenia (HCC) Need for hepatitis C screening test - HEPATITIS C ANTIBODY; Future Other orders - Enulose 10 GM/15ML Solution - acetaminophen (TYLENOL) 325 MG Tablet; Take 650 mg by mouth. Plan: Reviewed and discussed above results. Due to very old tattoos will proceed with hepatitis-C screen. Was advised to continue labs/ferritin/iron every 4 weeks. Will plan follow-up visit in 4 months-sooner if platelet count drops below 15,000 or if he developsexcessive bleeding or bruising. Diagnoses and all orders for this visit: Thrombocytopenia (HCC) - COMPLETE BLOOD COUNT (CBC) WITH DIFF; Standing - FERRITIN; Standing - IRON,TRANSFERN,CALC.TIBC,%SAT; Standing Chronic undifferentiated schizophrenia (HCC) Need for hepatitis C screening test - HEPATITIS C ANTIBODY; Future Other orders - Enulose 10 GM/15ML Solution - acetaminophen (TYLENOL) 325 MG Tablet; Take 650 mg by mouth. Return in about 4 months (around 07/29/2023) for Thrombocytopenia, Review labs/ tests after completed. The patient was given an opportunity to ask questions, and all questions answered to patient's satisfaction. Patient verbalizes understanding of the plan as outlined above. Patient Instructions Continue to monitor CBC/iron and ferritin level on a monthly basis. Plan follow-up in 4 months with labs just prior. If platelet count drops below 15,000 follow-up sooner. If evidence of excessive bruising/bleeding occur scheduled follow-up sooner. Will evaluate for hepatitis-C with next labs. If you are required to have labs/ testing done PRIOR to follow up, please have testing completed nolater than 2-5 days prior to appointment. If you do not have testing completed prior to your scheduled follow-up appointment you will be asked to reschedule until testing completed All patients are expected to check in with registration 15 minutes prior to all appointments. Patients who arrive 15 minutes or more after their scheduled appointment time may be required to reschedule. Please schedule follow-up in near future to discuss any concerns that were not addressed fully at today's office visit. To continue to provide excellent patient care, you may receive a survey regarding your visit today.To help us serve you better, please complete and return. These surveys are completely anonymous. If you have any concerns/ questions regarding today's visit, please call. If you experience any new or worsening symptoms, please call or go to the emergency department. documented in this encounter Miscellaneous Notes * Interdisciplinary - Colleen Cherry - 03/29/2023 10:15 AM CDT AVS printed and provided to the patient's caregiver. The patient will return in 4 months with labs prior. documented in this encounter Plan of Treatment Not on file documented as of this encounter Procedures Procedure Name Priority Date/Time Associated Diagnosis Comments IRON,TRANSFERN,CALC.TI BC,%SAT Routine 03/29/2023 12:00 AM CDT HEPATITIS C ANTIBODY Routine 03/29/2023 12:00 AM CDT Need for hepatitis C screening test FERRITIN Routine 03/29/2023 12:00 AM CDT COMPLETE BLOOD COUNT (CBC) WITH DIFF Routine 03/29/2023 12:00 AM CDT documented in this encounter Results * IRON,TRANSFERN,CALC.TIBC,%SAT (03/29/2023 12:00 AM CDT) 03/29/2023 [facility] Hagen PAC CHEMISTRY ORDERABLES Mireya l Result Performing Organization Address [facility] de Phone Number SCAN * FERRITIN (03/29/2023 12:00 AM CDT) 03/29/2023 [facility] Hagen PAC CHEMISTRY ORDERABLES Mireya l Result Performing Organization Address City/[facility]/ZIP Co de Phone Number SCAN * COMPLETE BLOOD COUNT (CBC) WITH DIFF (03/29/2023 12:00 AM CDT) 03/29/2023 [facility] Hagen PAC HEMATOLOGY ORDERABLES Fin al Result Performing Organization Address City/[facility] de Phone Number SCAN * HEPATITIS C ANTIBODY (03/29/2023 12:00 AM CDT) Blood 03/29/2023 [facility] Hagen PAC CHEMISTRY ORDERABLES Mireya l Result Performing Organization Address City/[facility] de Phone Number SCAN documented in this encounter Visit Diagnoses Diagnosis Thrombocytopenia (HCC)- Primary Thrombocytopenia, unspecified 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
--- OUTSIDE RECORDS SUMMARY | 2024-07-28 14:09 | XMS_ITS | Encounter Summary ---
Author Organization [facility] Address [address] [facility] [place] [address] Phone Care Team Providers Care Live In Caregiver Name Role Phone Irving Jeffries MD Primary Care Provider [phone] Reason for Referral * Consult, Test & Initiate Treatment (Routine) - Closed Specialty Diagnoses / Procedures Referred By Geeta saavedra Referred To Contact Urology Diagnoses Elevated PSA Irving Jeffries MD [address] [place] [address] Phone: tel: fax: [facility] [address] [place] [address] Phone: tel: fax: Referral ID Status Reason Start Date Expiration Date Visits Re quested Visits Authorized [id number] Closed 03/16/2023 1 1 Scheduling Instructions Iván is being referred for elevated PSA. Please contact patient for scheduling questions or concerns. Encounter Details Date Type Department Care Team (Late st Contact Info) Description 03/16/2023 Telephone [facility] - Internal Medicine - [place] [address] [place] [address] Irving Jeffries MD [address] [place] [address] Social History Tobacco Use Types Packs/Day Years [...] suspected to have Coronavirus/COVID-19? No / Unsure 03/15/2023 10:06 AM CDT documented as of this encounter Miscellaneous Notes * Telephone Encounter - Quynh Duncan RN - 03/16/2023 11:48 AM CDT ----- Message from QUENTIN Humphries sent at 03/15/2023 2:22 PM CDT ----- Elevated PSA No PSA in chart to compare Refer to urologist for f/u documented in this encounter Plan of Treatment Scheduled Referrals Name Type Priority Associated Diagnoses Orde r Schedule UROLOGY REFERRAL Outpatient Referral Routine Elevated PSA Expected: 03/16/2023, Expires: 03/16/2024 documented as of this encounter Visit Diagnoses Diagnosis Elevated PSA- Primary Elevated prostate specific antigen (PSA) documented in this encounter Care Teams Live In Caregiver Relationship Specialty Start Date End Date Irving Jeffries MD [address] [place] [address] PCP - General Internal Medicine 07/16/21 07/04/24 documented as of this encounter
--- OUTSIDE RECORDS SUMMARY | 2024-07-28 14:09 | XMS_ITS | Encounter Summary ---
Author Organization [facility] Address [address] [facility] [place] [place] [address] Phone Care Team Providers Care Roving Department Supervisor Name Role Phone Irving Jeffries MD Primary Care Provider [phone] Reason for Visit * Reason Comments Medication Refill Encounter Details Date Type Department Care Team (Late st Contact Info) Description 01/27/2022 Refill [facility] - Internal Medicine - [place] [address] [place] [address] Irving Jeffries MD [address] [facility] [address] Medication Refill Social History Tobacco Use Types Packs/Day Years Used Date Smoking Tobacco: Never Smokeless Tobacco: Never Sex and Gender Information Value Date Recorded Sex Assigned at Not on file Legal Sex Male 11:18 PM CDT Gender Identity Not on file Sexual Orientation Not on file documented as of this encounter Miscellaneous Notes * Telephone Encounter - Myla Quintanilla RN - 01/27/2022 4:21 PM CDT Medication(s) refilled and signed per [facility] Chronic Medication Refill Standing Order for Pediatricand Adult Patients. Requested Prescriptions Pending Prescriptions Disp Refills ??? omeprazole (PriLOSEC) 20 MG CAPSULE DELAYED RELEASE [Pharmacy Med Name: OMEPRAZOLE DR 20 MG CAPSULE] 30 Capsule 6 Sig: TAKE ONE CAPSULE BY MOUTH EVERY DAY Proton Pump Inhibitors Protocol Passed - 01/27/2022 4:15 PM Passed - Visit with relevant provider in past 12 months or upcoming 90 days Recent Visits Date Type Provider Dept 01/19/22 Nursing Facility Irving Jeffries MD [facility] [place] 07/14/21 Nursing Facility Irving Jeffries MD [facility] [place] 02/03/21 Nursing Facility Irving Jeffries MD [facility] Showing recent visits within past 365 days and meeting all other requirements Future Appointments No visits were found meeting these conditions. Showing future appointments within next 90 days and meeting all other requirements documented in this encounter Plan of Treatment Not on file documented as of this encounter Visit Diagnoses Not on filedocumented in this encounter Care Teams Roving Department Supervisor Relationship Specialty Start Date End Date Irving Jeffries MD [address] [place] [address] PCP - General Internal Medicine 07/16/21 07/04/24 documented as of this encounter
--- OUTSIDE RECORDS SUMMARY | 2024-07-28 14:09 | XMS_ITS | Encounter Summary ---
Author Organization [facility] Address [address] [facility] [place] [place] [address] Phone Care Team Providers Care Fire Control Technician G Name Role Phone Irving Jeffries MD Primary Care Provider Encounter Details Date Type Department Care Team (Late st Contact Info) Description 03/16/2023 Telephone [facility] Oncology Services [address] [place] [phone] Gilda Hagen Monika, PAC [address] [place] [address] Social History Tobacco Use Types Packs/Day Years [...] encounter Miscellaneous Notes * Telephone Encounter - Candida Alaniz RN - 03/16/2023 10:22 AM CDT Staff from facility called to notify Gilda that patient has a current platelet count of 43 that was a result from labs drawn yesterday. They will fax lab results as soon as they are available. documented in this encounter Plan of Treatment Not on file documented as of this encounter Visit Diagnoses Not on filedocumented in this encounter Care Teams Fire Control Technician G Relationship Specialty Start Date End Date Irving Jeffries MD [address] [place] [address] PCP - General Internal Medicine 07/16/21 07/04/24 documented as of this encounter
--- OUTSIDE RECORDS SUMMARY | 2024-07-28 14:09 | XMS_ITS | Encounter Summary ---
Author Organization [facility] Address [address] [facility] [place] [address] Phone Care Team Providers Care Business Support Liaison Name Role Phone Irving Jeffries MD Primary Care Provider [phone] Reason for Visit * Reason Comments Medication Refill Encounter Details Date Type Department Care Team (Late st Contact Info) Description 08/16/2021 Refill [facility] - Internal Medicine - Opp [address] [place] [address] Irving Jeffries MD [address] [facility] [place] [address] Medication Refill Social History Tobacco Use Types Packs/Day Years Used Date Smoking Tobacco: Never Assessed Sex and Gender Information Value Date Recorded Sex Assigned at Not on file Legal Sex Male 11:18 PM CDT Gender Identity Not on file Sexual Orientation Not on file documented as of this encounter Miscellaneous Notes * Telephone Encounter - Myla Quintanilla RN - 08/16/2021 12:55 PM COSMETOLOGY INSTRUCTOR Medication failed the protocol, provider to review and approve the medication order if appropriate. Requested Prescriptions Pending Prescriptions Disp Refills amLODIPine (NORVASC) 5 MG Tablet [Pharmacy Med Name: AMLODIPINE BESYLATE 5 MG TAB] 30 Tablet 12 Sig: TAKE ONE TABLET BY MOUTH EVERY DAY Calcium-Channel Blockers Protocol Failed - 08/16/2021 11:12 AM Failed - BP on record in the past year Clinician-entered: BP Readings from Last 3 Encounters: No data found for BP Patient-entered: No data recorded Passed - Visit with relevant provider in past 12 months or upcoming 90 days Recent Visits Date Type Provider Dept 07/14/21 Nursing Facility Irving Jeffries MD [facility] 02/03/21 Nursing Facility [facility] Showing recent visits within past 365 days and meeting all other requirements Future Appointments No visits were found meeting these conditions. Showing future appointments within next 90 days and meeting all other requirements ETOLOGY INSTRUCTOR documented in this encounter Plan of Treatment Not on file documented as of this encounter Visit Diagnoses Not on filedocumented in this encounter Care Teams Business Support Liaison Relationship Specialty Start Date End Date Irving Jeffries MD [address] [place] [address] PCP - General Internal Medicine 07/16/21 07/04/24 documented as of this encounter
--- OUTSIDE RECORDS SUMMARY | 2024-07-28 14:09 | XMS_ITS | Encounter Summary ---
Author Organization [facility] Address [address] [place] [address] Phone Care Team Providers Care Net Fisher Name Role Phone Irving Jeffries MD Primary Care Provider Ton Ling APRN, [facility] Unavailable Michael Ahmadi MD Unavailable [phone] Reason for Visit * Reason Comments Blood in Stools Blood in Urine Encounter Details Date Type Department Care Team (Late st Contact Info) Description 08/09/2023 1:52 PM DIESEL TECHNOLOGY INSTRUCTOR - 08/09/2023 6:31 PM DIESEL TECHNOLOGY INSTRUCTOR Emergency [facility] Emergency [address] [place] [address] Mason Culp MD [address] [place] [address] Gross hematuria Discharge Disposition: Discharged to home or Selfcare Social History Tobacco Use Types Packs/Day Years Used Date Smoking Tobacco: Former Cigarettes 2 20 Smokeless Tobacco: Never Alcohol Use Standard Drinks/Week Comments Not Currently 0 (1 standard drink = 0.6 oz pur e alcohol) [facility] Utilities Answer Date Recorded In the [...] declined 07/28/2023 How often do you attend bahai or anabaptism serv ices? Patient declined 07/28/2023 Do you [...] medical care, and heating? Patient declined 07/28/2023 [facility] [...] a skilled nursing (including now)? Patient declined 07/28/2023 Sex and Gender Information Value Date Recorded Sex Assigned at Not on file Legal Sex Male 11:18 PM CDT Gender Identity Not on file Sexual Orientation Not on file documented as of this encounter Last Filed Vital Signs Vital Sign Reading Time Taken Comments Blood Pressure 108/65 08/09/2023 6:23 PM DIESEL TECHNOLOGY INSTRUCTOR Pulse 65 08/09/2023 6:15 PM DIESEL TECHNOLOGY INSTRUCTOR Temperature 35.8 ??C (96.5 ??F) 08/09/2023 1:46 PM CS T Respiratory Rate 16 08/09/2023 1:46 PM DIESEL TECHNOLOGY INSTRUCTOR Oxygen Saturation 99% 08/09/2023 6:15 PM DIESEL TECHNOLOGY INSTRUCTOR Inhaled Oxygen Concentration - - Weight 93 kg (205 lb) 08/09/2023 1:46 PM DIESEL TECHNOLOGY INSTRUCTOR Height 182.2 cm (5' 11.75 ) 08/09/2023 1:[address] Body Mass Index 28 08/09/2023 1:46 PM DIESEL TECHNOLOGY INSTRUCTOR documented in this encounter Discharge Instructions * Discharge Instructions* Mason Culp MD - 08/09/2023 6:07 PM DIESEL TECHNOLOGY INSTRUCTOR Take the Keflex Twice daily for the next 7 days. Hold the Xarelto for the next 2 days to help stop the bleeding. EL TECHNOLOGY INSTRUCTOR EL TECHNOLOGY INSTRUCTOR * Attachments The following attachments cannot be sent through Care Everywhere. * Hematuria Adult (Chinese) * Indwelling Urinary Catheter Care Adult [id number]-Riwn (Chinese) documented in this encounter Medications at Time of Discharge acetaminophen (TYLENOL) 325 MG Tablet Take 2 Tablets by mouth every 6 hours as needed for Mild or more severe pain. amLODIPine (NORVASC) 10 MG Tablet Take 1 Tablet by mouth daily. 30 Tablet 11 02/21/2023 4 cephALEXin (Keflex) 500 MG Capsule [The details of the medication are not available because there are pending changes by a home health clinician.] 14 Capsule 08/09/2023 4 CLOZAPINE PO Take 100 mg by mouth daily. 50 mg at bedtime, 150 mg in the morning 4 docusate sodium (COLACE) 100 MG Capsule Take 100 mg by mouth 2 times daily. 4 Enulose 10 GM/15ML Solution Take 20 g by mouth daily. 01/30/2023 4 lactulose (CHRONULAC) 10 GM/15ML Solution TAKE 30CC BY MOUTH ONCE DAILY 946 mL 11 12/28/2021 4 metoprolol tartrate (LOPRESSOR) 25 MG Tablet Take 1 Tablet by mouth 2 times daily for 90 days. 180 Tablet 08/07/2023 4 omeprazole (PriLOSEC) 20 MG CAPSULE DELAYED RELEASE Take 1 Capsule by mouth in the morning and at bedtime. 30 Capsule 7 07/14/2023 4 predniSONE (DELTASONE) 10 MG Tablet Take 2 Tablets by mouth daily for 2 days, THEN 1 Tablet daily for 2 days, THEN 0.5 Tablets daily for 2 days. 7 Tablet 08/07/2023 4 Psyllium (REGULOID PO) Take by mouth 2 times daily. 1 TABLESPOON IN 8OZ WATER 4 rivaroxaban (XARELTO) 20 MG TabletIndications: Atrial Fibrillation [The details of the medication are not available because there are pending changes by a home health clinician.] 90 Tablet 08/07/2023 4 sertraline (ZOLOFT) 50 MG Tablet Take 50 mg by mouth daily. 4 documented as of this encounter ED Notes * Hoogerwerf, Crystal M, RN - 08/09/2023 6:30 PM CST Patient discharged. Discharge instructions and patient educational material reviewed with patient; questions and concerns addressed; patient verbalizes understanding, using teach back. Patient was given 0 prescriptions. Patient discharged per wheelchair to exit with no distress noted. SL D/C'ed with Errol cath intact. EL TECHNOLOGY INSTRUCTOR * Enedelia Stern RN - 08/09/2023 6:10 PM CST Spoke with Lenora at [facility] and reviewed discharge instructions and plan of care with understanding verbalized. EL TECHNOLOGY INSTRUCTOR * Enedelia Stern RN - 08/09/2023 5:23 PM CST Pt medicated per provider orders. Pt educated on intended effects and side effects of medication and verbalized understanding, able to provide teach back of education. EL TECHNOLOGY INSTRUCTOR * Mason Culp MD - 08/09/2023 4:58 PM CST Chief Complaint Patient presents with ??? Blood in Stools ??? Blood in Urine 77-year-old male with a history of atrial fibrillation, schizophrenia and recent admission for sepsis with pneumonia complicated with urinary retention and seems and atrial fibrillation presents to the emergency room with gross blood in his Cedillo catheter. Patient denies any abdominal pain. He alsoreports today some bright red blood in his stool. Patient was a poor historian due to his psychiatric disease. Along with them as a worker from his [facility] who is not much help as far as history goes. Blood in Stools Blood in Urine No current facility-administered medications for this encounter. Current Outpatient Medications Medication Sig Dispense Refill ??? acetaminophen (TYLENOL) 325 MG Tablet Take 650 mg by mouth. ??? amLODIPine (NORVASC) 10 MG Tablet Take 1 Tablet by mouth daily. 30 Tablet 11 ??? cephALEXin (Keflex) 500 MG Capsule Take 1 Capsule by mouth 2 times daily for 7 days. 14 Capsule0 ??? CLOZAPINE PO Take 100 mg by mouth daily. 50 mg at bedtime, 150 mg in the morning ??? docusate sodium (COLACE) 100 MG Capsule Take 100 mg by mouth 2 times daily. ??? Enulose 10 GM/15ML Solution Take 20 g by mouth daily. ??? lactulose (CHRONULAC) 10 GM/15ML Solution TAKE 30CC BY MOUTH ONCE DAILY (Patient not taking: Reported on 07/28/2023) 946 mL 11 ??? metoprolol tartrate (LOPRESSOR) 25 MG Tablet Take 1 Tablet by mouth 2 times daily for 90 days. 180 Tablet 0 ??? omeprazole (PriLOSEC) 20 MG CAPSULE DELAYED RELEASE Take 1 Capsule by mouth in the morning and at bedtime. 30 Capsule 7 ??? predniSONE (DELTASONE) 10 MG Tablet Take 2 Tablets by mouth daily for 2 days, THEN 1 Tablet daily for 2 days, THEN 0.5 Tablets daily for 2 days. 7 Tablet 0 ??? Psyllium (REGULOID PO) Take by mouth 2 times daily. 1 TABLESPOON IN 8OZ WATER ??? rivaroxaban (XARELTO) 20 MG Tablet Take 1 Tablet by mouth daily (with dinner). Take with food. Indications: Atrial Fibrillation 90 Tablet 0 ??? sertraline (ZOLOFT) 50 MG Tablet Take 50 mg by mouth daily. No Known Allergies Past Medical History Positives [...] 0.00 Total pack years: 40.00 Types: Cigarettes ??? Smokeless tobacco: Never Vaping Use ??? Vaping Use: Never used Substance and Sexual Activity ??? Alcohol use: Not Currently ??? Drug use: Never ??? Sexual activity: Not on file Other Topics Concern ??? Not on file Social History Narrative ??? Not on file Social Determinants of Health Financial Resource Needs: Patient Declined (07/28/2023) Overall Financial Resource Strain (CARDIA) ??? Difficulty of Paying Living Expenses: Patient declined Food Insecurity Needs: Patient Declined (07/28/2023) Hunger Vital Sign ??? Worried About Running Out of Food in the Last Year: Patient declined ??? Ran Out of Food in the Last Year: Patient declined Transportation Needs: Patient Declined (07/28/2023) PRAPARE - Transportation ??? Lack of Transportation (Medical): Patient declined ??? Lack of Transportation (Non-Medical): Patient declined Physical Activity: Patient Declined (07/28/2023) Exercise Vital Sign ??? Days of Exercise per Week: Patient declined ??? Minutes of Exercise per Session: Patient declined Stress: Patient Declined (07/28/2023) [facility] - Occupational Stress Questionnaire ??? Feeling of Stress : Patient declined Social Integration: Patient Declined (07/28/2023) Social Connection and Isolation Panel [NHANES] ??? Frequency of Communication with Friends and Family: Patient declined ??? Frequency of Social Gatherings with Friends and Family: Patient declined ??? Attends Anglican Services: Patient declined ??? Active Member of Clubs or Organizations: Patient declined ??? Attends Club or Organization Meetings: Patient declined ??? Marital Status: Patient declined Intimate Partner Violence: Patient Declined (07/28/2023) Humiliation, Afraid, Rape, and Kick questionnaire ??? Fear of Current or Ex-Partner: Patient declined ??? Emotionally Abused: Patient declined ??? Physically Abused: Patient declined ??? Sexually Abused: Patient declined Housing Stability: Patient Declined (07/28/2023) Housing Stability Vital Sign ??? Unable to Pay for Housing in the Last Year: Patient declined ??? Number of Places Lived in the Last Year: 1 ??? Unstable Housing in the Last Year: Patient declined BP 119/62 Pulse 72 Temp 96.5 ??F (35.8 ??C) (Tympanic) Resp 16 Ht 5' 11.75 (1.822 m) Wt 205 lb (93 kg) SpO2 98% BMI 28.00 kg/m?? Review of Systems Unable to perform ROS: Psychiatric disorder Physical Exam Constitutional: Comments: Patient was awake alert and in no pain distress. HENT: Head: Normocephalic and atraumatic. Nose: Nose normal. Mouth/Throat: Mouth: Mucous membranes are moist. Comments: Normal colored oral mucosa. Eyes: Extraocular Movements: Extraocular movements intact. Conjunctiva/sclera: Conjunctivae normal. Pupils: Pupils are equal, round, and reactive to light. Cardiovascular: Rate and Rhythm: Normal rate. Rhythm irregular. Pulmonary: Effort: Pulmonary effort is normal. Abdominal: General: There is no distension. Palpations: Abdomen is soft. Tenderness: There is no abdominal tenderness. Comments: Bedside ultrasound shows that the bladder is completely decompressed. There is no obviousclot burden in the Cedillo catheter. Genitourinary: Comments: Cedillo catheter in place draining dark bloody urine. No clots. Musculoskeletal: General: No swelling. Normal range of motion. Cervical back: Normal range of motion. Skin: General: Skin is warm and dry. Capillary Refill: Capillary refill takes less than 2 seconds. Coloration: Skin is not jaundiced. Neurological: General: No focal deficit present. Mental Status: He is alert and oriented to person, place, and time. Cranial Nerves: No cranial nerve deficit. Psychiatric: Mood and Affect: Mood normal. Behavior: Behavior normal. Procedures Recent Results (from the past 24 hour(s)) CMP (Comprehensive Metabolic Panel) Result Value Ref Range SODIUM 138 136 - 145 mmol/L POTASSIUM 4.5 3.5 - 5.1 mmol/L CHLORIDE 106 98 - 107 mmol/L CO2, VENOUS 22 22 - 30 mmol/L ANION GAP 14.5 <18.0 mmol/L GLUCOSE 128 (H) 70 - 99 mg/dL BUN 28 (H) 8 - 26 mg/dL CREATININE, BLOOD 0.87 0.70 - 1.30 mg/dL BUN/CREATININE RATIO 32 (H) 12 - 20 ratio TOTAL PROTEIN 6.9 6.3 - 8.2 g/dL ALBUMIN 3.8 3.5 - 5.0 g/dL A/G RATIO 1.2 1.0 - 2.2 CALCIUM 8.8 8.7 - 10.5 mg/dL T BILI 0.3 0.2 - 1.2 mg/dL SGOT (AST) 17 5 - 34 U/L SGPT (ALT) 56 (H) 0 - 55 U/L ALKALINE PHOSPHATASE 68 40 - 150 U/L GFR, ESTIMATED >60 >=60 GFR, EST. >60 >=60 GFR, EST. NONAFRICAN >60 >=60 CBC with Auto Differential Result Value Ref Range WBC 14.57 (H) 4.00 - 12.00 10(3)/mcL RBC 4.44 4.40 - 5.80 10(6)/mcL HEMOGLOBIN (HGB) 13.5 13.0 - 16.5 g/dL HEMATOCRIT (HCT) 42.2 38.0 - 50.0 % MCV 95.0 82.0 - 96.0 fL MCH 30.4 26.0 - 32.0 pg MCHC 32.0 31.0 - 36.0 g/dL PLATELET COUNT 196 140 - 440 10(3)/mcL RDW 14.4 11.8 - 15.5 % MPV 12.0 8.0 - 12.6 fL NEUTROPHILS 88.7 (H) 40.0 - 68.0 % LYMPHOCYTES 5.8 (L) 19.0 - 49.0 % MONOCYTES 5.3 3.0 - 13.0 % EOSINOPHILS 0.0 0.0 - 8.0 % BASOPHILS 0.2 0.0 - 1.0 % ABSOLUTE NEUTROPHILS 12.93 (H) 1.40 - 5.30 10(3)/mcL ABSOLUTE LYMPHOCYTES 0.84 (L) 0.90 - 3.30 10(3)/mcL ABSOLUTE MONOCYTES 0.77 0.10 - 0.90 10(3)/mcL ABSOLUTE EOSINOPHIL 0.00 0.00 - 0.50 10(3)/mcL ABSOLUTE BASOPHILS 0.03 0.00 - 0.10 10(3)/mcL NRBC PER 100 WBC 0 Stool, Occult Blood, Diagnostic Result Value Ref Range OCCULT BLOOD DIAG, GI BLEED Negative Negative Imaging Results None Medical Decision Making 77-year-old female recently hospitalized for pneumonia complicated with atrial fibrillation urinaryretention who is currently on Xarelto presents to the ER complaining of gross hematuria. On exam hehas no abdominal pain and bedside ultrasound shows that his bladder is decompressed with no evidence of any blood clots within the bladder. He also complained of some blood in his stool. He had a rectal exam with normal colored stool that was heme-negative. His blood counts are normal. Given that his Cedillo is still functioning and he was on Xarelto patient will be discharged with his Cedillo catheter in place with instructions to hold his Xarelto for the next 2 days. He was given a dose of Rocephin considering that the bleeding may be due to a catheter associated infection and he will be sent home with a prescription for Keflex and told to return to the hospital if his Cedillo catheter stops functioning presumably due to blood clots. Gross hematuria: acute illness or injury Amount and/or Complexity of Data Reviewed Independent Historian: caregiver External Data Reviewed: notes. Details: Notes from recent hospitalization. Labs: ordered. Decision-making details documented in ED Course. Risk Prescription drug management. Decision regarding hospitalization. Clinical Impression 1. Gross hematuria Acute Disposition: Discharge EL TECHNOLOGY INSTRUCTOR * Enedelia Stern RN - 08/09/2023 4:53 PM CST Patient is resting in room with call light at bedside. Patient informed about wait time and verbalizes understanding. Patient denies needs at this time and verbalizes understanding that RN will complete hourly rounding. EL TECHNOLOGY INSTRUCTOR * Enedelia Stern RN - 08/09/2023 4:[address] Culp at bedside EL TECHNOLOGY INSTRUCTOR * Marbella Santo RN - 08/09/2023 1:47 PM CST Patient to ED with complaints blood in catheter drainage bag that started a few days ago and brightred blood in his stool that started today. Patient reports one bloody stool today. He denies abdominal pain, nausea, or vomiting. Patient had a recent hospitalization and was started on Xarelto. Patient reports generalized weakness and dizziness when trying to stand and walk. He denies any dizziness at this time. EL TECHNOLOGY INSTRUCTOR documented in this encounter Miscellaneous Notes * Interdisciplinary - Sr. Daniela Horton - 08/09/2023 4:55 PM CST Went to the lobby to see patient and to see how he was doing. He had just been discharged from [facility] after being a patient for a while. EL TECHNOLOGY INSTRUCTOR documented in this encounter Plan of Treatment Not on file documented as of this encounter Procedures Procedure Name Priority Date/Time Associated Diagnosis Comments STOOL, OCCULT BLOOD, DIAGNOSTIC, VIA GUAIAC STAT 08/09/2023 5:08 PM DIESEL TECHNOLOGY INSTRUCTOR EXTRA TUBES STAT 08/09/2023 1:49 PM DIESEL TECHNOLOGY INSTRUCTOR GOLD TOP TUBE STAT 08/09/2023 1:49 PM DIESEL TECHNOLOGY INSTRUCTOR LAVENDER TOP TUBE STAT 08/09/2023 1:4 9 PM DIESEL TECHNOLOGY INSTRUCTOR CBC WITH AUTO DIFFERENTIAL STAT 08/09/2023 1:49 PM DIESEL TECHNOLOGY INSTRUCTOR CMP (COMPREHENSIVE METABOLIC PANEL) STAT 08/09/2023 1:49 PM DIESEL TECHNOLOGY INSTRUCTOR COMPLETE BLOOD COUNT (CBC) WITH DIFF STAT 08/09/2023 1:49 PM DIESEL TECHNOLOGY INSTRUCTOR documented in this encounter Results * Stool, Occult Blood, Diagnostic (08/09/2023 5:08 PM DIESEL TECHNOLOGY INSTRUCTOR) OCCULT BLOOD DIAG, GI BLEED Negative Negative 08/09/2023 5:28 PM DIESEL TECHNOLOGY INSTRUCTOR [facility] Stool STOOL SPECIMEN / Unknown Non-Phlebotomy Collection / Unknown 08/09/2023 5:08 PM DIESEL TECHNOLOGY INSTRUCTOR 08/09/2023 5:24 PM DIESEL TECHNOLOGY INSTRUCTOR us Mason Culp MD BODY FLUIDS & STOOLS ORDER ABDOULAYE Final Result [facility] [address] [place] [address] * Lavender Top Tube (08/09/2023 1:49 PM DIESEL TECHNOLOGY INSTRUCTOR) Blood No Phlebotomy Charged / Unknown 08/09/2023 1:49 PM DIESEL TECHNOLOGY INSTRUCTOR 08/09/2023 2:20 PM DIESEL TECHNOLOGY INSTRUCTOR Mason Culp MD HEMATOLOGY ORDERABLES Mireya l Result Performing Organization Address [facility] Co de Phone Number [facility] [address] [place] [address] * Gold Top Tube (08/09/2023 1:49 PM DIESEL TECHNOLOGY INSTRUCTOR) Blood No Phlebotomy Charged / Unknown 08/09/2023 1:49 PM DIESEL TECHNOLOGY INSTRUCTOR 08/09/2023 2:20 PM DIESEL TECHNOLOGY INSTRUCTOR Mason Culp MD CHEMISTRY ORDERABLES Final Result Performing Organization Address [facility] Co de Phone Number [facility] [address] [place] [address] * (ABNORMAL) CBC with Auto Differential (08/09/2023 1:49 PM DIESEL TECHNOLOGY INSTRUCTOR) WBC 14.57(H) 4.00 - 12.00 10(3)/mcL 08/09/2023 2:05 PM DIESEL TECHNOLOGY INSTRUCTOR [facility] RBC 4.44 4.40 - 5.80 10(6)/mcL 08/09/2023 2:05 PM DIESEL TECHNOLOGY INSTRUCTOR [facility] HEMOGLOBIN (HGB) 13.5 13.0 - 16.5 g/dL 08/09/2023 2:05 PM DIESEL TECHNOLOGY INSTRUCTOR [facility] HEMATOCRIT (HCT) 42.2 38.0 - 50.0 % 08/09/2023 2:05 PM DIESEL TECHNOLOGY INSTRUCTOR [facility] MCV 95.0 82.0 - 96.0 fL 08/09/2023 2:05 PM DIESEL TECHNOLOGY INSTRUCTOR [facility] MCH 30.4 26.0 - 32.0 pg 08/09/2023 2:05 PM DIESEL TECHNOLOGY INSTRUCTOR [facility] MCHC 32.0 31.0 - 36.0 g/dL 08/09/2023 2:05 PM [facility] PLATELET COUNT 196 140 - 440 10(3)/[facility] 08/09/2023 2:05 PM [facility] RDW 14.4 11.8 - 15.5 % 08/09/2023 2:05 PM [facility] MPV 12.0 8.0 - 12.6 fL 08/09/2023 2:05 PM [facility] NEUTROPHILS 88.7(H) 40.0 - 68.0 % 08/09/2023 2:05 PM [facility] LYMPHOCYTES 5.8(L) 19.0 - 49.0 % 08/09/2023 2:05 PM [facility] MONOCYTES 5.3 3.0 - 13.0 % 08/09/2023 2:05 PM [facility] EOSINOPHILS 0.0 0.0 - 8.0 % 08/09/2023 2:05 PM [facility] BASOPHILS 0.2 0.0 - 1.0 % 08/09/2023 2:05 PM [facility] ABSOLUTE NEUTROPHILS 12.93(H) 1.40 - 5.30 10(3)/[facility] 08/09/2023 2:05 PM [facility] ABSOLUTE LYMPHOCYTES 0.84(L) 0.90 - 3.30 10(3)/[facility] 08/09/2023 2:05 PM [facility] ABSOLUTE MONOCYTES 0.77 0.10 - 0.90 10(3)/[facility] 08/09/2023 2:05 PM [facility] ABSOLUTE EOSINOPHIL 0.00 0.00 - 0.50 10(3)/[facility] 08/09/2023 2:05 PM [facility] ABSOLUTE BASOPHILS 0.03 0.00 - 0.10 10(3)/[facility] 08/09/2023 2:05 PM [facility] NRBC PER 100 WBC 0 08/09/19 24 2:05 PM [facility] Blood Venipuncture / Unknown 08/09/2023 1:49 PM DIESEL TECHNOLOGY INSTRUCTOR 08/09/2023 2:01 PM DIESEL TECHNOLOGY INSTRUCTOR us Mason Culp MD HEMATOLOGY ORDERABLES Mireya jordon Result [facility] [address] [place] [address] * (ABNORMAL) CMP (Comprehensive Metabolic Panel) (08/09/2023 1:49 PM DIESEL TECHNOLOGY INSTRUCTOR) SODIUM 138 136 - 145 mmol/L 08/09/2023 2:24 PM DIESEL TECHNOLOGY INSTRUCTOR [facility] POTASSIUM 4.5 3.5 - 5.1 mmol/L 08/09/2023 2:24 PM DIESEL TECHNOLOGY INSTRUCTOR [facility] CHLORIDE 106 98 - 107 mmol/L 08/09/2023 2:24 PM DIESEL TECHNOLOGY INSTRUCTOR [facility] CO2, VENOUS 22 22 - 30 mmol/L 08/09/2023 2:24 PM DIESEL TECHNOLOGY INSTRUCTOR [facility] ANION GAP 14.5 <18.0 mmol/L 08/09/2023 2:24 PM DIESEL TECHNOLOGY INSTRUCTOR [facility] GLUCOSE 128(H) 70 - 99 mg/dL 08/09/2023 2:24 PM DIESEL TECHNOLOGY INSTRUCTOR [facility] BUN 28(H) 8 - 26 mg/dL 08/09/2023 2:24 PM DIESEL TECHNOLOGY INSTRUCTOR [facility] CREATININE, BLOOD 0.87 0.70 - 1.30 mg/dL 08/09/2023 2:24 PM DIESEL TECHNOLOGY INSTRUCTOR [facility] BUN/CREATININE RATIO 32(H) 12 - 20 ratio 08/09/2023 2:24 PM DIESEL TECHNOLOGY INSTRUCTOR [facility] TOTAL PROTEIN 6.9 6.3 - 8.2 g/dL 08/09/2023 2:24 PM DIESEL TECHNOLOGY INSTRUCTOR [facility] ALBUMIN 3.8 3.5 - 5.0 g/dL 08/09/2023 2:24 PM [facility] A/G RATIO 1.2 1.0 - 2.2 08/09/2023 2:24 PM DIESEL TECHNOLOGY INSTRUCTOR [facility] CALCIUM 8.8 8.7 - 10.5 mg/dL 08/09/2023 2:24 PM DIESEL TECHNOLOGY INSTRUCTOR [facility] T BILI 0.3 0.2 - 1.2 mg/dL 08/09/2023 2:24 PM DIESEL TECHNOLOGY INSTRUCTOR [facility] SGOT (AST) 17 5 - 34 U/L 08/09/2023 2:24 PM DIESEL TECHNOLOGY INSTRUCTOR [facility] SGPT (ALT) 56(H) 0 - 55 U/L 08/09/2023 2:24 PM DIESEL TECHNOLOGY INSTRUCTOR [facility] ALKALINE PHOSPHATASE 68 40 - 150 U/L 08/09/2023 2:24 PM DIESEL TECHNOLOGY INSTRUCTOR [facility] GFR, ESTIMATED >60 >=60 08/09/2023 2:24 PM DIESEL TECHNOLOGY INSTRUCTOR [facility] Comment: Creatinine Clearance is the preferred criteria for selecting drug dose adjustments in renally impaired patients. ??The GFR is provided as additional pertinent clinical information. GFR is reported in mL/min/1.73 sq m. Calculation based on the Chronic Kidney Disease Epidemiology Collaboration (CKD- EPI) equation refit without adjustment for race. GFR, EST. >60 >=60 2:24 PM DIESEL TECHNOLOGY INSTRUCTOR [facility] GFR, EST. NONAFRICAN >60 >=60 08/09/2023 2:24 PM DIESEL TECHNOLOGY INSTRUCTOR [facility] Blood Venipuncture / Unknown 08/09/2023 1:49 PM DIESEL TECHNOLOGY INSTRUCTOR 08/09/2023 2:01 PM DIESEL TECHNOLOGY INSTRUCTOR us Mason Culp MD CHEMISTRY ORDERABLES Final Result [facility] [address] [place] [address] documented in this encounter Visit Diagnoses Diagnosis Gross hematuria- Primary documented in this encounter Administered Medications Inactive Administered Medications - up to 3 most recent administrations Medication Order MAR Action Action Date Dose Rate Site cefTRIAXone (ROCEPHIN) injection 1 g 1 g, Intravenous, ONCE, 1 dose, On Mon08/09/23 at 1730, Indications: CystitisIndications:Cystitis Given 08/09/2023 5:23 PM DIESEL TECHNOLOGY INSTRUCTOR 1 g documented in this encounter Active and Recently Administered Medications Times are shown in DIESEL TECHNOLOGY INSTRUCTOR. 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
--- OUTSIDE RECORDS SUMMARY | 2024-07-28 14:09 | XMS_ITS | Encounter Summary ---
Author Organization [facility] Address [address] [address] Phone Care Team Providers Care Fuel System Maintenance Supervisor Name Role Phone Irving Jeffries MD Primary Care Provider Ton Ling APRN, [facility] Unavailable Michael Ahmadi MD Unavailable [phone] Reason for Visit * Reason Comments Follow-up Encounter Details Date Type Department Care Team (Latest Contact Info) Description 07/26/2023 10:20 AM LINE UP MACHINE OPERATOR Office Visit [facility] On[facility] [address] [place] [id number] Michael Ahmadi MD [address] [place], [place] [id number] Chronic undifferentiated schizophrenia (HCC) (Primary Dx); Thrombocytopenia (HCC); Anemia, unspecified type Discharge Disposition: Discharged to home or Selfcare Social History Tobacco Use Types Packs/Day Years Used Date Smoking Tobacco: Former Cigarettes 2 20 Smokeless Tobacco: Never Tobacco Cessation:Counseling Given: Not Answered Alcohol Use Standard Drinks/Week Comments Yes 0 (1 standard drink = 0.6 oz pur e alcohol) Sex and Gender Information Value Date Recorded Sex Assigned at Not on file Legal Sex Male 11:18 PM CDT Gender Identity Not on file Sexual Orientation Not on file documented as of this encounter Last Filed Vital Signs Vital Sign Reading Time Taken Comments Blood Pressure 151/72 07/26/2023 10:38 AM LINE UP MACHINE OPERATOR Pulse 105 07/26/2023 10:38 AM LINE UP MACHINE OPERATOR Temperature 37.4 ??C (99.4 ??F) 07/26/2023 1 0:38 AM LINE UP MACHINE OPERATOR Respiratory Rate 18 07/26/2023 10:3 8 AM LINE UP MACHINE OPERATOR Oxygen Saturation 94% 07/26/2023 10: 38 AM LINE UP MACHINE OPERATOR Inhaled Oxygen Concentration - - Weight 91.9 kg (202 lb 11.2 oz) 023 10:38 AM LINE UP MACHINE OPERATOR Height 182.9 cm (6') 07/26/2023 10:38 AM LINE UP MACHINE OPERATOR Body Mass Index 27.49 07/26/2023 10:38 AM LINE UP MACHINE OPERATOR documented in this encounter Progress Notes * Mayra Duenas - 07/26/2023 10:20 AM CST Outpatient Hem/Onc Progress Note PROGRESS NOTE Iván Dumont is a 77 y.o. male seen today for follow up of thrombocytopenia. Patient requests to be called Norberto. Norberto is here today accompanied by Angella from [facility] for support. He was originallyworked up for thrombocytopenia by my colleague Gilda IRAHETA. Norberto was started on Dexamethasone 20 mg BID for 4 days on 07/14/23 for PLT count of 9k on 07/12/23. Angella recites being unfamiliar withpatient's medical history, medications, or recent treatments. Norberto denies any living relatives that are involved in his care. He recites few cousins that are still living, and residing in [place]. Norberto recites residing at [facility] for over 30 years. He reports previous employment at local [employer], denying current job. Angella oconnor there is a nurse at the facility that manages medications and medical charts. Past medical history significant for hyperlipidemia/ hypertension/ GERD/ schizophrenia. Norberto recites having labs drawn this morning at the facility. Lenora WERNER at [facility] was able to be contacted to discuss medical care. She recites patient completed the Dexamethasone course prescribed on07/14/23. She denies any signs of bleeding; including increased bruising, nose bleeds, rectal bleeding, etc. Reviewed patients past medical, surgical, social, and family history. No outpatient medications have been marked as taking for the 07/26/23 encounter (Appointment) with Michael Ahmadi MD. Allergies as of 07/26/2023 ??? (No Known Allergies) REVIEW OF SYSTEMS Review of Systems Unable to perform ROS: Mental acuity Physical Exam Physical Exam PAIN ASSESSMENT: no verbal pain complaints today. DATA: 07/12/23 CBC OSH: WBC 7.6 HGB 13.2 PLT 9K !! 06/07/23 CBC OSH: WBC 6.8 HGB 12.4 PLT 39K 05/28/23 CBC OSH: WBC 8.2 HGB 12.9 PLT 18K 05/10/23 CBC OSH: WBC 6.6 HGB 12.3 PLT 18K 04/26/23 CBC OSH: WBC 8.0 HGB 12.7 PLT 33K Lab Results Component Value Date WBC 8.46 04/24/2023 RBC 4.40 04/24/2023 HEMOGLOBIN 13.8 04/24/2023 HEMATOCRIT 41.5 04/24/2023 MCV 94.3 04/24/2023 MCH 31.4 04/24/2023 MCHC 33.3 04/24/2023 PLATELETCNT 50 (L) 04/24/2023 RDW 13.4 04/24/2023 LYMPHOCYTES 18.0 (L) 04/24/2023 RELEOS 0.0 04/24/2023 RELBAS 0.6 04/24/2023 ANC 5.64 (H) 04/24/2023 MONOCYTES 1.25 (H) 04/24/2023 EOSINOPHILS 0.00 04/24/2023 BASOPHILS 0.05 04/24/2023 Lab Results Component Value Date SODIUM 141 03/15/2023 POTASSIUM 4.2 03/15/2023 CHLORIDE 107 03/15/2023 ANIONGAP 16.2 03/15/2023 GLUCOSE 122 (H) 03/15/2023 BUN 12 03/15/2023 CREATININE 0.85 03/15/2023 TOTALPROTEIN 7.4 03/15/2023 TOTALPROTEIN 7.1 03/15/2023 ALBUMIN 4.2 03/15/2023 CALCIUM 9.0 03/15/2023 SGPTALT 28 03/15/2023 ALKALINEPHO 72 03/15/2023 DIAGNOSTIC IMAGING STUDIES: 03/21/23 US ABDOMEN: IMPRESSION: No evidence of an acute abnormality. Spleen size is normal. Cholelithiasis with no secondary features of acute cholecystitis. Bilateral renal cysts. Hepatic steatosis. Assessment: 1. Thrombocytopenia 2. Anemia 3. Chronic undifferentiated schizophrenia Plan: 2. Obtain BMBX to assess cause of his continued thrombocytopenia. 3. Obtain lab results completed on 07/26/23 from facility. 4. Obtain consent for procedure from guardian, Lenora WERNER will confirm who has MPOA for Norberto for [facility] with. Patient is agreeable to complete BMBX after reviewing how this procedure is completed, complications associated, what testing is utilized for, and how long test results can take to process. 5. Discussed bleeding precautions with Angella and Norberto given his recent critical platelet level. Encouraged patient to avoid situations that increase his risk for falling. Present to nearest emergency room is episode of bleeding without ability to curb at home. Follow up in 4 weeks to review BMBX The patient was given an opportunity to ask questions, and all questions answered to patient's satisfaction. Patient verbalizes understanding of the plan as outlined above. Total time spent on this encounter on this date of service, including pre-visit review of separately obtained history, [id number] interaction performing medically appropriate physical exam, patientcounseling/education, interpretation of diagnostic results, care coordination and documentation wasminutes. The documentation for this visit was completed by Mayra Duenas acting as a scribe for Michael Valdovinos MD. 07/26/2023, 9:21 AM LINE UP MACHINE OPERATOR UP MACHINE OPERATOR * Michael Ahmadi MD - 07/26/2023 10:20 AM CST Outpatient Hem/Onc Progress Note PROGRESS NOTE Iván Dumont is a 77 y.o. male seen today for follow up of severe thrombocytopenia. Patient requests to be called Norberto. Norberto is here today accompanied by Angella from [facility] for support. He was originally worked up for thrombocytopenia by my colleague Gilda IRAHETA. on review of his labs in Feb his platelet count was 79 K hemoglobin [...] days on 07/14/23 for PLT count of 9kon 07/12/23 for clinical suspicion of ITP. Angella, the accompanying caregiver, recites being unfamiliar with patient's medical history, medications, or recent treatments. Norberto denies any living relatives that are involved in his care. He recites few cousins that are still living, and residing in [place]. Norberto recites residing at [facility] for over 30 years. He reports previous employment at local [employer], denying current job. Angella anastasia there is a nurse at the facility that manages medications and medical charts. Past medical history significant for hyperlipidemia/ hypertension/GERD/ schizophrenia. According to nurse at facility, patient is his own medical decision maker. He does not have any family -siblings/ children etcetera Norberto recites having labs drawn this morning at the facility. Lenora RN at facility was able to be contacted to discuss medical care. She recites patient completed the Dexamethasone course prescribed on07/14/23. She denies any signs of bleeding; including increased bruising, nose bleeds, rectal bleeding, etc. Reviewed patients past medical, surgical, social, and family history. No outpatient medications have been marked as taking for the 07/26/23 encounter (Office Visit) Michael Jordan MD. Allergies as of 07/26/2023 ??? (No Known Allergies) REVIEW OF SYSTEMS Review of Systems Unable to perform ROS: Mental acuity Constitutional: Negative for malaise/fatigue and weight loss. Respiratory: Negative. Cardiovascular: Negative. Musculoskeletal: Negative. Skin: Negative for itching. Physical Exam Physical Exam PAIN ASSESSMENT: no verbal pain complaints today. DATA: 07/12/23 CBC OSH: WBC 7.6 HGB 13.2 PLT 9K !! 06/07/23 CBC OSH: WBC 6.8 HGB 12.4 PLT 39K 05/28/23 CBC OSH: WBC 8.2 HGB 12.9 PLT 18K 05/10/23 CBC OSH: WBC 6.6 HGB 12.3 PLT 18K 04/26/23 CBC OSH: WBC 8.0 HGB 12.7 PLT 33K Lab Results Component Value Date WBC 8.46 04/24/2023 RBC 4.40 04/24/2023 HEMOGLOBIN 13.8 04/24/2023 HEMATOCRIT 41.5 04/24/2023 MCV 94.3 04/24/2023 MCH 31.4 04/24/2023 MCHC 33.3 04/24/2023 PLATELETCNT 50 (L) 04/24/2023 RDW 13.4 04/24/2023 LYMPHOCYTES 18.0 (L) 04/24/2023 RELEOS 0.0 04/24/2023 RELBAS 0.6 04/24/2023 ANC 5.64 (H) 04/24/2023 MONOCYTES 1.25 (H) 04/24/2023 EOSINOPHILS 0.00 04/24/2023 BASOPHILS 0.05 04/24/2023 Lab Results Component Value Date SODIUM 141 03/15/2023 POTASSIUM 4.2 03/15/2023 CHLORIDE 107 03/15/2023 ANIONGAP 16.2 03/15/2023 GLUCOSE 122 (H) 03/15/2023 BUN 12 03/15/2023 CREATININE 0.85 03/15/2023 TOTALPROTEIN 7.4 03/15/2023 TOTALPROTEIN 7.1 03/15/2023 ALBUMIN 4.2 03/15/2023 CALCIUM 9.0 03/15/2023 SGPTALT 28 03/15/2023 ALKALINEPHO 72 03/15/2023 DIAGNOSTIC IMAGING STUDIES: 03/21/23 US ABDOMEN: IMPRESSION: No evidence of an acute abnormality. Spleen size is normal. Cholelithiasis with no secondary features of acute cholecystitis. Bilateral renal cysts. Hepatic steatosis. Assessment: 1. Thrombocytopenia , severe, worsening. 2. Anemia, normocytic, mild 3. Chronic undifferentiated schizophrenia Plan: 1. Reviewed patient's clinical symptoms and his lab/CBC trend over the last several months as well as prior workup, imaging including ultrasound of the abdomen etcetera. No evidence of hepatosplenomegaly. His CBC is mainly showing profound thrombocytopenia with very mild anemia and normal white blood cell count. 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 However given his age, underlying bone marrow disorder such as MDS, myeloproliferative disorder etcetera needs to be ruled out. We did given 4 days of dexamethasone about a week ago. Await CBC results from today to see if there is any improvement. 2. Obtain BMBX to assess cause of his continued thrombocytopenia. Discussed procedure of bone marrow biopsy, indications, personnel involved, common and uncommon complications. He is agreeable to proceed at her earliest convenience. 3. Obtain lab result- CBC completed on 07/26/23 from facility. 4. Discussed bleeding precautions with Angelal and Norberto given his recent critical platelet level. Encouraged patient to avoid situations that increase his risk for falling. Present to nearest emergency room is episode of bleeding without ability to curb at home. Follow up in 3 weeks to review BMBX Repeat CBC in 1 week The patient was given an opportunity to ask questions, and all questions answered to patient's satisfaction. Patient verbalizes understanding of the plan as outlined above. Total time spent on this encounter on this date of service, including pre-visit review of separately obtained history, [id number] interaction performing medically appropriate physical exam, patientcounseling/education, interpretation of diagnostic results, care coordination and documentation wasminutes. The documentation for this visit was completed by Mayra Duenas acting as a scribe for Michael Valdovinos MD. 07/26/2023, 11:03 AM LINE UP MACHINE OPERATOR The documentation recorded by the scribe was completed while in the exam room with me and the patient.?? The documentation accurately reflects the service I personally performed and the decisions made by me. I have confirmed and edited the documentation as necessary. Michael Ahmadi MD 07/26/2023, 11:10 AM LINE UP MACHINE OPERATOR UP MACHINE OPERATOR documented in this encounter Miscellaneous Notes * Interdisciplinary - Colleen Cherry - 07/26/2023 10:20 AM CST AVS printed. Patient will follow up in 3-4 weeks to review lab and biopsy results. Orders provided to have completed at the facility ([facility]) UP MACHINE OPERATOR documented in this encounter Plan of Treatment Not on file documented as of this encounter Procedures Procedure Name Priority Date/Time Associated Diagnosis Comments COMPLETE BLOOD COUNT (CBC) WITH DIFF Routine 07/26/2023 12:00 AM LINE UP MACHINE OPERATOR Thrombocytopenia (HCC) documented in this encounter Results * COMPLETE BLOOD COUNT (CBC) WITH DIFF (07/26/2023 12:00 AM LINE UP MACHINE OPERATOR) Blood Michael Ahmadi MD HEMATOLOGY ORDERABLES Fi nal Result SCAN documented in this encounter Visit Diagnoses Diagnosis 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
--- OUTSIDE RECORDS SUMMARY | 2024-07-28 14:09 | XMS_ITS | Encounter Summary ---
Author Organization [facility] Address [address] [place] [address] Phone Care Team Providers Care Python Java Developer Name Role Phone Irving Jeffries MD Primary Care Provider [phone]- [phone] Reason for Visit * Consult, Test & Initiate Treatment (Routine) - Closed Specialty Diagnoses / Procedures Referred By Geeta saavedra Referred To Contact Oncology Diagnoses Low platelet count (HCC) Kell Michelle, PAC [address] [place] [address] Phone: tel: fax: [facility] [address] [place] [address] Phone: tel: fax: Referral ID Status Reason Start Date Expiration Date Visits Re quested Visits Authorized [id number] Closed 02/02/2023 1 1 Encounter Details Date Type Department Care Team (Late st Contact Info) Description 03/15/2023 10:45 AM CDT Initial Consult [facility] [address] [place] [id number] Gilda Hagen, PAC [address] [place], [place] [id number] Low platelet count (HCC) (Primary Dx); Anemia, unspecified type Discharge Disposition: Discharged to [...] Sign Reading Time Taken Comments Blood Pressure 153/79 03/15/2023 10:26 AM CDT Pulse 105 03/15/2023 10:26 AM CDT Temperature 36 ??C (96.8 ??F) 03/15/2023 10: 26 AM CDT Respiratory Rate 16 03/15/2023 10:2 6 AM CDT Oxygen Saturation 98% 03/15/2023 10: 26 AM CDT Inhaled Oxygen Concentration - - Weight 94.3 kg (207 lb 12.8 oz) 023 10:26 AM CDT Height - - Body Mass Index 28.18 02/02/2023 9:45 AM CDT documented in this encounter Patient Instructions * Patient Instructions* Gilda Hagen PAC - 03/15/2023 10:45 AM CDT Proceed with labs today. Observe for episodes of bruising excessive bleeding. Iron rich diet. Follow up in 2 weeks to review test results. documented in this encounter Progress Notes * Gilda Hagen PAC - 03/15/2023 10:45 AM CDT Outpatient Hem/Onc Progress Note Iván Dumont is a 77 y.o. male seen today for evaluation low platelet count. Past medical history significant for hyperlipidemia/ hypertension/ GERD/ schizophrenia. Chart/ records review demonstrates low platelets as well as mild anemia going back to February 2020. Denies easy bruising or bleeding problems. Denies weight loss/ malaise/ fatigue/ night sweats. Denies headache/ facial pain or sinus pressure or pain. Denies visual disturbance. Denies earache/ hearing loss or tinnitus. No nasal discharge or epistaxis. Denies any oral lesions or bleeding from gums. Denies sore throat/ hoarseness.Denies any unusual neck pain/ stiffness or swelling. Denies chest pain/ pressure/ heaviness/ tightness. Denies cough/ sob/ wheezing/ NORMAN. Normal appetite. Denies heartburn/ reflux/ nausea/ vomiting/ abdominal pain/ constipation/ diarrhea/ mucus or BRBPR. Denies black or tarry stools. Denies lesions/ rash/ itching/ discoloration to skin. Reviewed patients past medical, surgical, social, and family history. No outpatient medications have been marked as taking for the 03/15/23 encounter (Initial Consult) with Gilda Hagen PAC. Allergies as of 03/15/2023 ??? (No Known Allergies) Patient Active Problem List Diagnosis ??? GERD without esophagitis ??? Mixed hyperlipidemia ??? Essential hypertension, benign ??? Chronic undifferentiated schizophrenia (HCC) ??? Low platelet count (HCC) Physical Exam GENERAL:Well developed, well nourished, in no acute distress. AAO x3. Cooperative. HEENT:Normocephalic. PERRLA. Nonicteric. NECK:Supple/ non tender/ full ROM. LYMPH NODES:No adenopathy. CARDIOVASCULAR:RRR/ S1S2/ No m/g/c/r. PULMONARY: Respirations easy and regular. Breath sounds clear bilaterally. No rhonchi/ rales/ wheezes. GI: Abdomen soft, nondistended. No tenderness, rebound, guarding or mass. No hepatosplenomegaly. Bowel sounds normoactive. MUSCULOSKELETAL:Full ROM all extremities. No tenderness/ swelling/ crepitus. SKIN: General-warm, pink and dry. No rashes/ lesions. PSYCHIATRIC: Euthymic. Affect congruent with mood. Normal thought processes. PAIN ASSESSMENT: 0 DATA: Summary from 03/02/22 through 03/01/23 --Hemoglobin ranging from a high of 13.5 to a low of 12.4 --Hematocrit ranging from a high 41.3 to a low of 37.7 --Platelets ranging from high of 102 to a low of 31 Most recent report 03/01/2023 demonstrated hemoglobin 13.4/ hematocrit 40.6/ platelets 76 Assessment: Diagnoses and all orders for this visit: Low platelet count (HCC) - HEMATOLOGY ONCOLOGY REFERRAL - ERYTHROCYTE SEDIMENTATION RATE (ESR); Future - PERIPHERAL BLOOD, FLOW CYTOMETRY; Future - FOLIC ACID (FOLATE); Future - FERRITIN; Future - TRANSFERRIN; Future - CMP (COMPREHENSIVE METABOLIC PANEL); Future - COMPLETE BLOOD COUNT (CBC) WITH DIFF; Future - VITAMIN B12; Future - RETICULOCYTE COUNT (RETIC); Future - LACTATE DEHYDROGENASE (LD); Future - FREE KAPPA & LAMBDA LIGHT CHAINS SERUM; Future - IMMUNOFIXATION W/ ELECTROPHORESIS SERUM; Future - IRON,TRANSFERN,CALC.TIBC,%SAT; Future Anemia, unspecified type - ERYTHROCYTE SEDIMENTATION RATE (ESR); Future - PERIPHERAL BLOOD, FLOW CYTOMETRY; Future - FOLIC ACID (FOLATE); Future - FERRITIN; Future - TRANSFERRIN; Future - CMP (COMPREHENSIVE METABOLIC PANEL); Future - COMPLETE BLOOD COUNT (CBC) WITH DIFF; Future - VITAMIN B12; Future - RETICULOCYTE COUNT (RETIC); Future - LACTATE DEHYDROGENASE (LD); Future - FREE KAPPA & LAMBDA LIGHT CHAINS SERUM; Future - IMMUNOFIXATION W/ ELECTROPHORESIS SERUM; Future - IRON,TRANSFERN,CALC.TIBC,%SAT; Future Other orders - sertraline (ZOLOFT) 50 MG Tablet; Take 50 mg by mouth daily. - CLOZAPINE PO; Take by mouth. 50 mg at bedtime, 150 mg in the morning Plan: Will proceed with further evaluation for low platelet count as well as his mild anemia. Will follow-up in 2 weeks to review results. Diagnoses and all orders for this visit: Low platelet count (HCC) - HEMATOLOGY ONCOLOGY REFERRAL - ERYTHROCYTE SEDIMENTATION RATE (ESR); Future - PERIPHERAL BLOOD, FLOW CYTOMETRY; Future - FOLIC ACID (FOLATE); Future - FERRITIN; Future - TRANSFERRIN; Future - CMP (COMPREHENSIVE METABOLIC PANEL); Future - COMPLETE BLOOD COUNT (CBC) WITH DIFF; Future - VITAMIN B12; Future - RETICULOCYTE COUNT (RETIC); Future - LACTATE DEHYDROGENASE (LD); Future - FREE KAPPA & LAMBDA LIGHT CHAINS SERUM; Future - IMMUNOFIXATION W/ ELECTROPHORESIS SERUM; Future - IRON,TRANSFERN,CALC.TIBC,%SAT; Future Anemia, unspecified type - ERYTHROCYTE SEDIMENTATION RATE (ESR); Future - PERIPHERAL BLOOD, FLOW CYTOMETRY; Future - FOLIC ACID (FOLATE); Future - FERRITIN; Future - TRANSFERRIN; Future - CMP (COMPREHENSIVE METABOLIC PANEL); Future - COMPLETE BLOOD COUNT (CBC) WITH DIFF; Future - VITAMIN B12; Future - RETICULOCYTE COUNT (RETIC); Future - LACTATE DEHYDROGENASE (LD); Future - FREE KAPPA & LAMBDA LIGHT CHAINS SERUM; Future - IMMUNOFIXATION W/ ELECTROPHORESIS SERUM; Future - IRON,TRANSFERN,CALC.TIBC,%SAT; Future Other orders - sertraline (ZOLOFT) 50 MG Tablet; Take 50 mg by mouth daily. - CLOZAPINE PO; Take by mouth. 50 mg at bedtime, 150 mg in the morning Return in about 2 weeks (around 03/29/2023) for Thrombocytopenia, Anemia, Review labs/ tests after completed. The patient was given an opportunity to ask questions, and all questions answered to patient's satisfaction. Patient verbalizes understanding of the plan as outlined above. Patient Instructions Proceed with labs today. Observe for episodes of bruising excessive bleeding. Iron rich diet. Follow up in 2 weeks to review test results. documented in this encounter Miscellaneous Notes * Interdisciplinary - Leeann Tracey RN - 03/15/2023 10:45 AM CDT Patient here for a consult with Gilda IRAHETA. Patient placed in room for appointment.Vitals taken patient denies changes or falls. Medication list reviewed. * Interdisciplinary - Leeann Tracey RN - 03/15/2023 10:45 AM CDT Patient provided with AVS discussed next steps including labs to be completed and follow up date. Provided instruction on future testing and procedures as instructed by physician. Patient left officewith no further questions or concerns. documented in this encounter Plan of Treatment Not on file documented as of this encounter Procedures Procedure Name Priority Date/Time Associated Diagnosis Comments IRON,TRANSFERN,CALC.TIB C,%SAT Routine 03/29/2023 12:00 AM CDT FERRITIN Routine 03/29/2023 12:00 AM CDT COMPLETE BLOOD COUNT (CBC) WITH DIFF Routine 03/15/2023 12:00 AM CDT documented in this encounter Results * FERRITIN (03/29/2023 12:00 AM CDT) 03/29/2023 [facility] PAC CHEMISTRY ORDERABLES Mireya l Result SCAN * IRON,TRANSFERN,CALC.TIBC,%SAT (03/29/2023 12:00 AM CDT) 03/29/2023 [facility] PAC CHEMISTRY ORDERABLES Mireya l Result Performing Organization Address City/[facility]/ZIP Co de Phone Number SCAN * IRON,TRANSFERN,CALC.TIBC,%SAT (03/15/2023 11:31 AM CDT) IRON 93 31 - 144 mcg/dL 03/15/2023 2:07 PM CDT [facility] TRANSFERRIN 284 163 - 344 mg/dL 03/15/2023 2:[address] [facility] TIBC, CALCULATED 355 261 - 462 mcg/dL 03/15/2023 2:07 PM CDT [facility] % SATURATION * 26 15 - 62 % 03/15/2023 2:[address] [facility] Blood Venipuncture / Unknown 03/15/2023 11:31 AM CDT 03/15/2023 12:18 PM CDT Narrative [facility] - 03/15/2023 2:07 PM CDT * % Transferrin Saturation [facility] PAC CHEMISTRY ORDERABLES Mireya l Result [facility] [address] [place] [address] * (ABNORMAL) IMMUNOFIXATION W/ ELECTROPHORESIS SERUM (03/15/2023 11:31 AM CDT) [facility] TOTAL PROTEIN 7.1 6.3 - 8.2 g/dL 03/16/2023 5:10 PM CDT [facility] % ALBUMIN 55.6(L) 55.8 - 66.7 % 03/16/2023 5:10 PM CDT [facility] ALBUMIN SERUM 4.0 2.5 - 5.4 g/dL 03/16/2023 5:10 PM CDT [facility] % ALPHA 1 GLOBULIN 3.3 2.9 - 4.9 % 03/16/2023 5:10 PM CDT [facility] ALPHA 1 0.2 0.2 - 0.4 g/dL 03/16/2023 5:10 PM CDT [facility] % ALPHA 2 GLOBULIN 10.3 7.1 - 11.8 % 03/16/2023 5:10 PM CDT [facility] ALPHA 2 0.7 0.5 - 1.0 g/dL 03/16/2023 5:10 PM CDT [facility] % BETA 13.4(H) 8.4 - 13.1 % 03/16/2023 5:10 PM CDT [facility] BETA-GLOBULIN 1.0 0.5 - 1.1 g/dL 03/16/2023 5:10 PM CDT [facility] % GAMMA GLOBULIN 17.3 11.1 - 18.8 % 03/16/2023 5:10 PM CDT [facility] GAMMA 1.2 0.7 - 1.5 g/dL 03/16/2023 5:10 PM CDT [facility] IMMUNOGLOBULIN G 1,139 540 - 1,822 mg/dL 03/16/2023 5:10 PM CDT [facility] IMMUNOGLOBULIN A 44(L) 101 - 645 mg/dL 03/16/2023 5:10 PM CDT [facility] IMMUNOGLOBULIN M 234 22 - 240 mg/dL 03/16/2023 5:10 PM CDT [facility] INTERPRETATION SERUM No abnormal protein band is detected by serum protein electrophoresis. Serum immunofixation electrophoresis is negative for monoclonal immunoglobulins. Reviewed by Viridiana Iyer, Ph.D. 03/16/2023 5:10 PM CDT [facility] A/G RATIO, SERUM 1.3 03/16/20 5:10 PM CDT [facility] Blood Venipuncture / Unknown 03/15/2023 11:31 AM CDT 03/15/2023 12:18 PM CDT Narrative [facility] - 03/16/2023 5:10 PM CDT Reviewed by Dr. Werner Jeffries MD. [facility] PAC CHEMISTRY ORDERABLES Mireya l Result Performing Organization Address [facility] de Phone Number [facility] [address] [place] [address], [place] * (ABNORMAL) FREE KAPPA & LAMBDA LIGHT CHAINS SERUM (03/15/2023 11:31 AM CDT) Free Boneau Lt Chn 31.11(H) 3.30 - 19.40 mg/L 03/16/2023 8:36 AM CDT [facility] Free Lambda Lt Chn 22.55 5.71 - 26.30 mg/L 03/16/2023 8:36 AM CDT [facility] free penny shelton ratio 1.38 0.26 - 1.65 03/16/2023 8:36 AM CDT [facility] Blood Venipuncture / Unknown 03/15/2023 11:31 AM CDT 03/15/2023 12:18 PM CDT [facility] PAC CHEMISTRY ORDERABLES Mireya l Result Performing Organization Address [facility] Co de Phone Number [facility] [address] [place] [address], [place] * LACTATE DEHYDROGENASE (LD) (03/15/2023 11:31 AM CDT) LDH 192 125 - 220 U/L 03/15/2023 1:18 PM CDT [facility] Blood Venipuncture / Unknown 03/15/2023 11:31 AM CDT 03/15/2023 12:18 PM CDT [facility] CHEMISTRY ORDERABLES Mireya l Result [facility] [address] [place] [address] * RETICULOCYTE COUNT (RETIC) (03/15/2023 11:31 AM CDT) RETICULOCYTES 1.6 0.5 - 2.0 % 03/15/2023 12:32 PM CDT [facility] Blood Venipuncture / Unknown 03/15/2023 11:31 AM CDT 03/15/2023 12:18 PM CDT [facility] HEMATOLOGY ORDERABLES Fin al Result Performing Organization Address City/[facility]/ZIP Co de Phone Number [facility] [address] [place] [address] * VITAMIN B12 (03/15/2023 11:31 AM CDT) VITAMIN B12 486 213 - 816 pg/mL 03/15/2023 1:19 PM CDT [facility] Blood Venipuncture / Unknown 03/15/2023 11:31 AM CDT 03/15/2023 12:18 PM CDT [facility] PAC CHEMISTRY ORDERABLES Mireya l Result [facility] [address] [place] [address] * FERRITIN (03/15/2023 11:31 AM CDT) Pathologist [facility] FERRITIN 24 22 - 274 ng/mL 03/15/2023 1:22 PM CDT [facility] Blood Venipuncture / Unknown 03/15/2023 11:31 AM CDT 03/15/2023 12:18 PM CDT [facility] PAC CHEMISTRY ORDERABLES Mireya l Result Performing Organization Address City/[facility]/ZIP Co de Phone Number [facility] [address] [place] [address] * FOLIC ACID (FOLATE) (03/15/2023 11:31 AM CDT) [facility] FOLATE 11.3 7.0 - 31.4 ng/mL 03/15/2023 1:26 PM CDT [facility] IS THE PATIENT REQUIRED TO BE FASTING? No 03/15/2023 1:26 PM CDT [facility] Blood Venipuncture / Unknown 03/15/2023 11:31 AM CDT 03/15/2023 12:18 PM CDT [facility] PAC CHEMISTRY ORDERABLES Mireya l Result Performing Organization Address [facility] Co de Phone Number [facility] [address] [place] [address] * PERIPHERAL BLOOD, FLOW CYTOMETRY (03/15/2023 11:31 AM CDT) [facility] FINAL DIAGNOSIS Peripheral blood, flow cytometric analysis: - No abnormal lymphoid or increased progenitor cell population is detected. 11:48 AM CDT [facility] Specimen Source Received in an EDTA anticoagulated tube is 3mL peripheral blood. 11:48 AM CDT [facility] Microscopic Description Peripheral blood smear review shows features concordant with flow cytometric findings. Specimen processed and evaluated at [facility], [place], [place]. This document was completed utilizing speech recognition software. Grammatical errors, random word insertions, pronoun errors, and incomplete sentences are an occasional consequence of this system due to software limitations, ambient noise, and hardware issues. Any formal questions or concerns about the content, text or information contained within the body of this dictation should be directly addressed to the provider for clarification. 3 11:48 AM CDT [facility] Immunophenotypic Findings Flow cytometric analysis shows a heterogeneous cellular population. Blasts are not increased. Immunophenotypically unremarkable/nonspeci fic T-cells (CD4:CD8 = 2.3) and polyclonal B-cells are present. CELL POPULATIONS: 69% granulocytes, 11% monocytes, 18% lymphocytes with T-cell majority, <1% blasts. 3 11:48 AM CDT [facility] Phenotyping Markers Utilized Flow markers performed (23): CD2, CD3, CD4, CD5, CD7, CD8, CD10, CD13, CD15, CD19, CD20, CD33, CD34, CD38, CD45, CD56, CD117, CD123, CD200, kappa, lambda, HLA-DR, TCR gamma/delta This test was developed and its performance characteristics determined by [facility]. It has not been cleared or approved by the U.S. Food and Drug Administration. 3 11:48 AM CDT [facility] Case Report Flow Cytometry Repor t ? Case: ? Authorizing Provider: ??Gilda Hagen PAC ?? Collected: ? 03/15/2023 11:31 AM ? Ordering Location: ? [facility] ? Received: ?03/15/2023 12:35 PM ? [facility] On[facility] ? Services ? Pathologist: ? Evelia, Pankaj, ? Specimen: ?Blood, blood ? 3 11:48 AM CDT [facility] Blood BLOOD SPECIMEN / Unknown Venipuncture / Unknown 03/15/2023 11:31 AM CDT 03/15/2023 12:35 PM CDT us Gilda Hagen PAC PATHOLOGY/CYTOLOGY ORDERA BLES Final Result [facility] [address] [place] [place] [address], [place] * (ABNORMAL) ERYTHROCYTE SEDIMENTATION RATE (ESR) (03/15/2023 11:31 AM CDT) ESR (SED RATE, ERYTHROCYTE SEDIMENTATION RATE) 23(H) <20 mm/h 03/15/2023 12:[address] [facility] Comment: Patients presenting with increased level of fibrinogen, gamma globulins, or abnormally shaped RBCs could affect the results for the erythrocyte sedimentation rate (ESR). Results should be clinically correlated. Blood Venipuncture / Unknown 03/15/2023 11:31 AM CDT 03/15/2023 12:18 PM CDT [facility] HEMATOLOGY ORDERABLES Fin al Result Performing Organization Address City/[facility] Co de Phone Number [facility] [address] [place] [address] * COMPLETE BLOOD COUNT (CBC) WITH DIFF (03/15/2023 12:00 AM CDT) 03/15/2023 [facility] HEMATOLOGY ORDERABLES Fin al Result SCAN documented in this encounter Visit Diagnoses Diagnosis Low platelet count (HCC)- Primary Anemia, unspecified type documented in this encounter Care Teams Python Java Developer Relationship Specialty Start Date End Date Irving Jeffries MD [address] [place] [address] PCP - General Internal Medicine 07/16/21 07/04/24 documented as of this encounter
--- OUTSIDE RECORDS SUMMARY | 2024-07-28 14:09 | XMS_ITS | Encounter Summary ---
Author Organization [employer] Care Team Providers Care Sericulturist Name Role Phone Irving Jeffries MD Primary Care Provider [phone] Ton Ling LEAD SETTER, PATIENT RELATIONS LIAISON Unavailable [phone] Encounter Details Date Type Department Care Team (Latest Contact Info) Description 04/24/2023 Travel Social History Tobacco Use Types Packs/Day [...] suspected to have Coronavirus/COVID-19? No / Unsure 04/24/2023 9:43 AM CDT documented as of this encounter Plan of Treatment Not on file documented as of this encounter Visit Diagnoses Not on filedocumented in this encounter Care Teams Sericulturist Relationship Specialty Start Date End Date Irving Jeffries MD [address] [place] [address] PCP - General Internal Medicine 07/16/21 07/04/24 Ton Ling, LEAD SETTER, PATIENT RELATIONS LIAISON [address] [place] [address] Nurse Practitioner Advanced Practice Nurse 04/24/23 documented as of this encounter
--- OUTSIDE RECORDS SUMMARY | 2024-07-28 14:09 | XMS_ITS | Encounter Summary ---
Author Organization [facility] Address [address] [facility], [place] [address] Phone Care Team Providers Care Food Manager Name Role Phone Irving Jeffries MD Primary Care Provider Ton Ling APRN, [facility] Unavailable [phone] Michael Ahmadi MD Unavailable [phone] Reason for Visit * Reason Comments Shortness of Breath * Auth/Cert (Routine) Specialty Diagnoses / Procedures Referred By Contclay t Referred To Contact Diagnoses Sepsis, unspecified organism Reviewed [place] 08/02 Adriana Shine MD [address] [place] [address] Phone: tel: fax: Referral ID Status Reason Start Date Expiration Date Visits Re quested Visits Authorized [id number] 1 1 Encounter Details Date Type Department Care Team (Latest Contact Info) Description 07/28/2023 8:32 AM MATERIALS SUPERVISOR - 08/07/2023 12:36 PM MATERIALS SUPERVISOR Hospital Encounter [facility] [address] [place] [phone] Mason Culp MD [address] [place] [address] Adriana Shine MD [address] [place] [address] Uri Ny MD [address] [place] [address] Marcos García MD [address] [place] [address] [phone] Annie Jeffries MD [address] [place] [address] Acute respiratory failure with hypoxia (HCC) Discharge Disposition: Home Health Care Svc Social History Tobacco Use Types Packs/Day Years Used Date Smoking Tobacco: Former Cigarettes 2 20 Smokeless Tobacco: Never Tobacco Cessation:Counseling Given: Not Answered Alcohol Use Standard Drinks/Week Comments Not Currently 0 (1 standard drink = 0.6 oz pur e alcohol) [facility] Utilities Answer Date Recorded In the past 12 months has [employer] gas, oil, or water [employer] threatened to shut off services in your home? Patient declined 07/28/2023 Social Connection and Isolation Panel [NHANES] A nswer Date Recorded In a typical week, how many times do you talk on the phone with family, friends, or neighbors? Patient declined 07/28/2023 How often do you get togethe r with friends or relatives? Patient declined 07/28/2023 How often do you attend hindu or anabaptism serv ices? Patient declined 07/28/2023 [...] medical care, and heating? Patient declined 07/28/2023 [facility] - [...] a care home (including now)? Patient declined 07/28/2023 Sex and Gender Information Value Date Recorded Sex Assigned at Not on file Legal Sex Male 11:18 PM CDT Gender Identity Not on file Sexual Orientation Not on file documented as of this encounter Last Filed Vital Signs Vital Sign Reading Time Taken Comments Blood Pressure 147/52 08/07/2023 6:00 AM MATERIALS SUPERVISOR Pulse 75 08/07/2023 6:00 AM MATERIALS SUPERVISOR Temperature 36.4 ??C (97.5 ??F) 08/07/2023 6:00 AM CS T Respiratory Rate 21 08/07/2023 6:00 AM MATERIALS SUPERVISOR Oxygen Saturation 99% 08/07/2023 6:00 AM MATERIALS SUPERVISOR Inhaled Oxygen Concentration - - Weight 95.1 kg (209 lb 11.2 oz) 08/03/2023 8:00 AM MATERIALS SUPERVISOR Height 182.9 cm (6') 07/28/2023 8:42 AM MATERIALS SUPERVISOR Body Mass Index 28.44 07/28/2023 8:42 AM MATERIALS SUPERVISOR documented in this encounter Functional Status * Audit-C Score Answer Date of Assessment Author -1 07/28/2023 1:39 PM Felisha Rudd RN * Within the last year, have you been humiliated or emotionally abused in other ways by your partner or ex-partner? Answer Date of Assessment Author Patient declined 07/28/2023 1:39 PM Felisha Rudd RN * Within the last year, have you been afraid of your partner or ex-partner? Answer Date of Assessment Author Patient declined 07/28/2023 1:39 PM Felisha Rudd RN * Within the last year, have you been raped or forced to have any kind of sexual activity by your partner or ex-partner? Answer Date of Assessment Author Patient declined 07/28/2023 1:39 PM Felisha Rudd RN * Within the last year, have you been kicked, hit, slapped, or otherwise physically hurt by your partner or ex-partner? Answer Date of Assessment Author Patient declined 07/28/2023 1:39 PM Felisha Rudd RN * Question Answer Date of Assessment Author Q1: How often do you have a drink containing alcohol? Patient declined 07/28/2023 1:39 PM Felisha Rudd RN Q2: How many drinks containing alcohol do you have on a typical day when you are drinking? Patient declined 07/28/2023 1:39 PM Felisha Rudd RN Q3: How often do you have six or more drinks on one occasion? Patient declined 07/28/2023 1:39 PM MATERIALS SUPERVISOR Felisha Comre RN documented as of this encounter Discharge Summaries * Annie Jeffries MD - 08/07/2023 12:36 PM CST [facility] DISCHARGE SUMMARY Name: Iván Dumont Age: 77 y.o. : 1945 Attending Physician: No att. providers found Admission Date/Time: 07/28/2023 Discharge Date: 08/07/2023 Primary Care Physician: Irving Jeffries MD Discharging Provider: Annie Jeffries MD INSTRUCTIONS FOR PHYSICIANS ON FOLLOW UP AFTER DISCHARGE: Follow-up with PCP: Irving Jeffries MD in 1 week Recommended Tests/Labs to order at follow-up: none Pending Labs/Path/Imaging: BMP and CBC ---08/09/2023 and 08/14/2023 Discharge Instructions: Discharge Condition: improved Disposition: Home Diet: Cardiac Diet Activity: activity as tolerated Primary Discharge Diagnosis: Acute respiratory failure with hypoxia (HCC), sepsis, hypertension, anxiety, depression, GERD, atrial fibrillation with RVR, nutrition , RSV, urinary retention Discharge Diagnoses: As above Active Hospital Problems Diagnosis Date Noted ??? Anemia [D64.9] ??? Thrombocytopenia (HCC) [D69.6] 02/02/2023 ??? Essential hypertension, benign [I10] 07/17/2020 Resolved Hospital Problems Diagnosis Date Noted Date Resolved ??? Acute respiratory failure with hypoxia (HCC) [J96.01] 07/28/2023 08/07/2023 ??? RSV infection [B33.8] 07/28/2023 08/07/2023 Admitting Diagnoses: As above HOSPITAL COURSE: Iván Dumont was admitted 07/28/2023 with Acute respiratory failure with hypoxia (HCC) . Surgeries performed during stay: * No surgery found * Consults: Treatment Team: Consulting Physician: Allan Concepcion MD Patient was admitted on 07/28/2023 for evaluation shortness of breath symptoms. Physical examination, laboratory testing imaging studies have identified atrial fibrillation RVR state, RSV infection, and urinary retention. Patient was started on supportive management for atrial fibrillation which has stabilized. RSV and breathing abilities have improved with prednisone taper and which patient continues as discharge plan care. Urinary retention was identified during hospitalization a Cedillo catheter was inserted and patient will have outpatient follow-up with Urology. Thrombocytopenia was also noted and remained stable, follow-up lab testings and CBC BNP marker on 08/09/2023 and 08/14/2023. Follow-up with PCP 1 week, casing tier in 2 weeks, neurologist in 1 week. As part of management of atrial fibrillation, patient started on metoprolol and oral anticoagulation therapy with Xarelto. Exam Day of Discharge: No data recorded O2 Flow Rate (l/min): 2 l/min General: alert, and in no distress. Neck: No JVD. CVS: RRR, no murmur. Chest: clear to auscultation, no wheezes, rales or rhonchi, symmetric air entry. Heart: regular rate and rhythm, S1, S2 normal, no murmur, click, rub or gallop Abdominal: soft, nontender, nondistended. Positive Bowel sounds. Extremities: no edema, no clubbing or cyanosis. Urology: deferred Lab / Imaging Review: Lab Results Component Value Date WBC 14.57 [...] >60 08/09/2023 Lab Results Component Value Date GLUCOSEPOCT 193 (H) 07/31/2023 No results found for: INR , PTP No results found for: HGBA1C Lab Results Component Value Date [id number] 486 03/15/2023 No results found for: CPK , CPKI , CKMB , CKMBNI , CKMBPOCT , CKMBRELINDX , TROPONINI , POCTRP Lab Results Component Value Date FERRITIN 23 04/24/2023 No results found for: FOLATE Lab Results Component Value Date PHARTERIAL 7.43 07/30/2023 PO2ART 76 07/30/2023 [id number] 34 (L) 07/30/2023 O2ART 92 (L) 07/30/2023 Lab Results Component Value Date LACTICA 1.4 07/29/2023 XR CHEST SINGLE VIEW PORTABLE Result Date: 08/02/2023 IMPRESSION: Small left-sided pleural effusion has improved from the reference examination. Bibasilar airspace opacities appear unchanged. XR CHEST SINGLE VIEW PORTABLE Result Date: 08/01/2023 IMPRESSION: Tubes and lines with stable abnormal chest as above. XR CHEST SINGLE VIEW PORTABLE Result Date: 07/30/2023 IMPRESSION: 1. Satisfactory position of the endotracheal and esophagogastric tubes. 2. Progressive bilateral lower lobe pneumonia. XR CHEST SINGLE VIEW PORTABLE Result Date: 07/30/2023 IMPRESSION: Continued worsening of bilateral airspace opacities worrisome for pneumonia. Small metallic foreign bodies at the midline and right-sided chest which are located posteriorly and superficially on CT of the chest. CT ANGIO CHEST W/WO CONTRAST WITH PP (POST PROCESSING) Result Date: 07/29/2023 IMPRESSION: 1. No PE. 2. Lung findings unchanged. CT CHEST W/O CONTRAST Result Date: 07/29/2023 IMPRESSION: 1. Examination is degraded by respiratory motion. There are small bilateral pleural effusions and bilateral pulmonary opacities, consistent with pneumonia. 2. Mildly enlarged precarinal lymph node which may be reactive. 3. Coronary artery disease 4. Small hiatal hernia XR CHEST SINGLE VIEW PORTABLE Result Date: 07/28/2023 IMPRESSION: Persistent though slightly improved interstitial and airspace infiltrates. XR CHEST SINGLE VIEW PORTABLE Result Date: 07/28/2023 IMPRESSION: Patchy bilateral lower lungs airspace opacities superimposed on diffusely coarsened interstitial markings; no pleural effusion. DISCHARGE MEDICATION LIST: Medication List START taking these medications metoprolol tartrate 25 MG Tabs Commonly known as: LOPRESSOR Take 1 Tablet by mouth 2 times daily for 90 days. Notes to patient: Last dose at 9:21 CONTINUE taking these medications acetaminophen 325 MG Tabs Commonly known as: TYLENOL amLODIPine 10 MG Tabs Commonly known as: NORVASC Take 1 Tablet by mouth daily. CLOZAPINE PO Notes to patient: Last dose at 0921 docusate sodium 100 MG Caps Commonly known as: COLACE Enulose 10 GM/15ML Soln Generic drug: Lactulose Encephalopathy omeprazole 20 MG Cap-del-rel Commonly known as: PriLOSEC Take 1 Capsule by mouth in the morning and at bedtime. REGULOID PO sertraline 50 MG Tabs Commonly known as: ZOLOFT Notes to patient: Last dose 9:21 ASK your doctor about these medications predniSONE 10 MG Tabs Commonly known as: DELTASONE Take 2 Tablets by mouth daily for 2 days, THEN 1 Tablet daily for 2 days, THEN 0.5 Tablets daily for 2 days. Start taking on: August 07, 2023 Ask about: Should I take this medication? Where to Get Your Medications These medications [facility] to [facility] [address] [place] [phone] ?? metoprolol tartrate 25 MG Tabs ?? predniSONE 10 MG Tabs Time spent on interview, examination, final orders, recommendations, and care coordination for thishospital discharge: Greater than 30 minutes spent in coordinating care --- 32 minutes Thank you very much for allowing the [facility] Adult Hospitalist [facility] to participate in the care of this patient. If you have any questions, please don't hesitate to call. Signed: Annie Jeffries MD, 08/14/2023, 10:31 PM MATERIALS SUPERVISOR RIALS SUPERVISOR documented in this encounter Discharge Instructions * Discharge Instructions* Ariane Mccartney - 08/07/2023 10:29 AM MATERIALS SUPERVISOR You have chosen [facility] for the nursing home, physical therapy, occupational therapy services your doctor has ordered. The agency will call you to schedule initial visit prior to your hospital discharge or within a business day of your hospital discharge. If you have not been contacted to schedule your initial visit or need to contact the agency, pleasecall [facility] [phone] RIALS SUPERVISOR RIALS SUPERVISOR * Appointments* Annie Jeffries MD - 08/07/2023 9:49 AM MATERIALS SUPERVISOR Cedillo catheter management; Outpatient labs: 08/09/2023 and 08/14/2023 --- cbc, bmp --- home health to draw. Atrial fibrillation with rvr -- stablized. Per cardiology, started on metoprolol + OAC. \ RSV resolved-- pred. taper. Thrombocytopenia -- resolved-- pred taper. Cedillo catheter management -- outpatient evaluation with urology; Follow up with PCP in 1 week Follow up with cardiology in 2 weeks Evaluation with Urology in 1 week RIALS SUPERVISOR RIALS SUPERVISOR documented in this encounter Medications at Time of Discharge acetaminophen (TYLENOL) 325 MG Tablet Take 2 Tablets by mouth every 6 hours as needed for Mild or more severe pain. amLODIPine (NORVASC) 10 MG Tablet Take 1 Tablet by mouth daily. 30 Tablet 11 02/21/2023 4 CLOZAPINE PO Take 100 mg by [...] daily. 4 documented as of this encounter Progress Notes * Allan Concepcion MD - 08/07/2023 9:20 AM CST PULMONARY PROGRESS NOTE Date of Service: 08/07/23 Iván Dumont is a 77 y.o. male at Hospital Day (LOS: 10 days) for acute hypoxic respiratory failure. Subjective: Patient is seen in follow-up for acute hypoxic resp failure Objective: The patient is appearing comfortable in NAD . Currently on room air. Denies shortness of breath labs reviewed eating breakfast VITALS: BP 147/52 Pulse 75 Temp 97.5 ??F (36.4 ??C) (Tympanic) Resp 21 Ht 6' (1.829 m) Wt209 lb 11.2 oz (95.1 kg) SpO2 99% BMI 28.44 kg/m?? I&O: Intake/Output Summary (Last 24 hours) at 08/07/2023 0920 Last data filed at 08/06/2023 1853 Gross per 24 hour Intake 690 ml Output 1250 ml Net -560 ml Body mass index is 28.44 kg/m??. Exam: General appearance: in no obvious distress. HEENT: Normocephalic, atraumatic, moist mucous membranes, eyes with anicteric sclera, corneas clear. Extraocular Movements intact. Pupils reactive to light and accomodation. No sinus tenderness.External inspection of ears and nose shows no lesion or scars. Neck: supple, symmetrical, trachea midline, no lymphadenopathy, thyroid: not enlarged, symmetric, no tenderness.. Thorax: the contour of the thorax is normal Lungs: no acute distress, normal percussion bilaterally. Clear breath sounds are auscultated bilaterally. No wheezes, crackles, rhonchi, or rubs were heard. There is no observed use of accessory muscles of breathing. Heart: regular rate and rhythm, S1, S2 normal, no murmur, click, rub or gallop, nondisplaced PMI. Abdomen: soft, non-tender, non-distended. There is no enlargement of the liver and spleen to palpation. Extremities: no cyanosis or clubbing. There is no edema of the lower extremities. Skin: warm, dry with no rash. Psych: the patient was , alert and oriented x3. Normal mood and effect. Ventilator Settings: Last Ventilator settings: Vent Mode: A/C FIO2 (%): 35 % SpO2: 99 % Set Vt (ml): 450 ml Resp Rate (Set): 20 PEEP/CPAP (cm H2O): 5 cm H20 Pressure Support (cm H2O): 10 cm H2O Current Facility-Administered Medications Medication Dose Route Frequency Provider Last Rate Last Admin ??? cloZAPine (CLOZARIL) tablet 100 mg 100 mg Oral Daily Uri Ny MD 100 mg at 08/06/23 0821 ??? cloZAPine (CLOZARIL) tablet 50 mg 50 mg Oral Nightly Uri Ny MD 50 mg at 08/06/232 ??? enoxaparin (LOVENOX) injection 40 mg 40 mg Subcutaneous Daily Uri Ny MD 40 mg at 08/06/23 0820 ??? hydrALAZINE (APRESOLINE) injection 10 mg 10 mg Intravenous Q1H PRN Archie Hilario MD 10 mg at 08/02/23 1516 ??? lansoprazole (PREVACID SOLUTAB) disintegrating tablet 30 mg 30 mg Oral Daily Uri Ny MD 30 mg at 08/06/23 0820 ??? LORazepam (ATIVAN) tablet 1 mg 1 mg Oral Q6H PRN Uri Ny MD 1 mg at 07/30/23 0932 ??? metoprolol tartrate (LOPRESSOR) tablet 25 mg 25 mg Oral BID Uri Ny MD 25 mg at 08/06/232111 ??? predniSONE (DELTASONE) tablet 20 mg 20 mg Oral Daily with breakfast Allan Concepcion MD 20 mg at 08/06/23 0821 ??? sertraline (ZOLOFT) tablet 50 mg 50 mg Oral Daily Uri Ny MD 50 mg at 08/06/23 0821 Data Review ABGs: Lab Results Component Value Date PHARTERIAL 7.43 07/30/2023 PO2ART 76 07/30/2023 [id number] 34 (L) 07/30/2023 O2ART 92 (L) 07/30/2023 CBC: Lab Results Component Value Date WBC 9.74 08/07/2023 RBC 4.12 (L) 08/07/2023 HEMOGLOBIN 12.4 (L) 08/07/2023 HEMATOCRIT 38.0 08/07/2023 PLATELETCNT 162 08/07/2023 BMP: Lab Results Component Value Date GLUCOSE 86 08/07/2023 SODIUM 135 (L) 08/07/2023 POTASSIUM 4.4 08/07/2023 CHLORIDE 106 08/07/2023 BUN 28 (H) 08/07/2023 CREATININE 0.72 08/07/2023 CALCIUM 8.7 08/07/2023 No results found for: MAGNESIUM No results found for: PHOSPHORUS Coagulation: No results found for: PT , INR , APTT Results for orders placed or performed during the hospital encounter of 07/28/23 Blood Culture #2 Specimen: Blood; Culture Result Value Ref Range Status CULTURE RESULTS NO GROWTH WITHIN 5 DAYS, FINAL RESULT Final Blood Culture #1 Specimen: Blood; Culture Result Value Ref Range Status CULTURE RESULTS NO GROWTH WITHIN 5 DAYS, FINAL RESULT Final Radiology: XR CHEST SINGLE VIEW PORTABLE Result Date: 08/01/2023 IMPRESSION: Tubes and lines with stable abnormal chest as above. XR CHEST SINGLE VIEW PORTABLE Result Date: 07/30/2023 IMPRESSION: 1. Satisfactory position of the endotracheal and esophagogastric tubes. 2. Progressive bilateral lower lobe pneumonia. XR CHEST SINGLE VIEW PORTABLE Result Date: 07/30/2023 IMPRESSION: Continued worsening of bilateral airspace opacities worrisome for pneumonia. Small metallic foreign bodies at the midline and right-sided chest which are located posteriorly and superficially on CT of the chest. CT ANGIO CHEST W/WO CONTRAST WITH PP (POST PROCESSING) Result Date: 07/29/2023 IMPRESSION: 1. No PE. 2. Lung findings unchanged. CT CHEST W/O CONTRAST Result Date: 07/29/2023 IMPRESSION: 1. Examination is degraded by respiratory motion. There are small bilateral pleural effusions and bilateral pulmonary opacities, consistent with pneumonia. 2. Mildly enlarged precarinal lymph node which may be reactive. 3. Coronary artery disease 4. Small hiatal hernia XR CHEST SINGLE VIEW PORTABLE Result Date: 07/28/2023 IMPRESSION: Persistent though slightly improved interstitial and airspace infiltrates. XR CHEST SINGLE VIEW PORTABLE Result Date: 07/28/2023 IMPRESSION: Patchy bilateral lower lungs airspace opacities superimposed on diffusely coarsened interstitial markings; no pleural effusion. Patient Active Problem List Diagnosis ??? GERD without esophagitis ??? Mixed hyperlipidemia ??? Essential hypertension, benign ??? Chronic undifferentiated schizophrenia (HCC) ??? Thrombocytopenia (HCC) ??? Anemia ??? Need for hepatitis C screening test ??? Acute respiratory failure with hypoxia (HCC) ??? RSV infection No results found for this or any previous visit. Assessment: Acute hypoxemic respiratory failure due to RSV infection Plan PT/OT Nebulizers Aspiration precautions Completed antibx Continue p.o. prednisone. Taper Over 10 days ?? Atrial fibrillation Plan Continue beta-blockers per Cardiology ?? Anxiety/depression Plan Continue anxiolytics ?? Documentation for this visit on August 07 was completed using a template. I have seen and examined the patient. Everything documented was personally performed at this visit with the necessary additions, deletions and changes made as appropriate. Allan Concepcion MD 08/07/2023, 9:20 AM MATERIALS SUPERVISOR RIALS SUPERVISOR * Annie Jeffries MD - 08/06/2023 4:14 PM CST [facility] DAILY PROGRESS NOTE Iván Dumont is a 77 y.o. male at Hospital LOS: 9 days Assessment: Active Hospital Problems Diagnosis Date Noted ??? Acute respiratory failure with hypoxia (HCC) 07/28/2023 ??? RSV infection 07/28/2023 ??? Anemia ??? Thrombocytopenia (HCC) 02/02/2023 ??? Essential hypertension, benign 07/17/2020 Resolved Hospital Problems No resolved problems to display. Vitals: 08/06/23 1101 08/06/23 1257 08/06/23 1400 08/06/23 1500 Temp: 97.2 ??F (36.2 ??C) TempSrc: Tympanic Heart Rate (Monitor): 70 68 94 Pulse: 95 Resp: 18 BP: 132/57 Height: Weight: SpO2: 96% I/O last 3 completed shifts: In: 1220 [P.O.:720; IV Piggyback:500] Out: 4350 [Urine:4350] Plan: Plan 1. Sepsis: ??Patient on admission met criteria for sepsis with tachycardia [place]ach[place], [place] [address], trending down 15,000 -[id number] this morning. ??Patient also had elevated lactic acid, most likely source RSV pneumonia 1/5 WBC downtredning 12 from 13.5 from 15.2. DC precedex gtt. Passed swallow. Extubated. Psych medsresumed. Stable to trx to the floor. 08/05/2023 --- WBC levels normalized. 2. Acute respiratory failure with hypoxia: ??Currently intubated sedated ??Secondary to RSV pneumonia, continue supportive treatment, patient currently on high-flow oxygen, ABG showed PO2 of 70. ??Pulmonology consult, trap setter consult requested. ?? 08/05/2023 --- Status post extubation. Patient on room air. 3. Hypertension: ??Patient blood pressure soft, hold antihypertensives. ??Blood pressure in 90s this morning. ?? 4. Positive MRSA nares: ??Patient has been on vancomycin for possible MRSA pneumonia. ??Chest x-rayshows interstitial and a airspace infiltrate. ??CT of the chest ordered. 5. Anxiety and depression: ??Continue home medication Ativan p.r.n.. ?? 6. Gastroesophageal reflux disease: Continue PPI. ?? 7. Atrial fibrillation: ??Rate controlled, currently on beta-lilly continue the same. ??Cardiology following. 8. Nutritions 08/05/2023 --- Speech pathology evaluation post extubation with diet adjusted to dysphagia 3 9. Disposition: ??Home with home health 10. VTE Prophylaxis: Lovenox 40mg Q24h 11. Code Status: Code Status: ??Full Code Discussed with trap setter, patient was intubated on 07/30/2023 Expected discharge date: 08/07/2023 Subjective: Interval History: Patient seen at bedside. No new complaints or issues referred. Awaiting placement. Review of Systems: A 14 point comprehensive review of systems was negative, except as documented in HPI. Objective: Exam: General: alert, oriented and in no acute distress. Skin: normal coloration and turgor, no rashes. HEENT: normocephalic, atraumatic. Pupils equal, round and reactive to light. Extraocular movements intact. Oronasopharynx pink and moist, no lesion or exudate. Neck: Supple. No JVD, lymphadenopathy thyromegaly or carotid bruits auscultated. CVS: RRR, S1/S2 normal, no murmurs, gallops or rubs. Chest: clear to auscultation, no wheezes, rales or rhonchi, symmetric air entry and normal respiratory effort. Abdominal: soft, nontender, nondistended. Positive Bowel sounds, no organomegaly appreciated. Extremities: no edema, no clubbing or cyanosis. Neuro: CN 2-12 grossly intact, normal speech, no focal findings or movement disorder noted. Gait not tested.. Lab Results: Lab Results Component Value Date PHARTERIAL 7.43 07/30/2023 PO2ART 76 07/30/2023 UVF0AIC 34 (L) 07/30/2023 O2ART 92 (L) 07/30/2023 Lab Results Component Value Date WBC 9.45 08/06/2023 HEMOGLOBIN 12.4 (L) 08/06/2023 HEMATOCRIT 37.8 (L) 08/06/2023 PLATELETCNT 167 08/06/2023 MCV 92.0 08/06/2023 Lab Results Component Value Date SODIUM 136 08/06/2023 POTASSIUM 4.3 08/06/2023 CHLORIDE 107 08/06/2023 CO2VEN 22 08/06/2023 ANIONGAP 11.3 08/06/2023 GLUCOSE 89 08/06/2023 BUN 29 (H) 08/06/2023 CREATININE 0.72 08/06/2023 BCRATIO8 40 (H) 08/06/2023 TOTALPROTEIN 5.8 (L) 08/06/2023 ALBUMIN 3.2 (L) 08/06/2023 AGRATIO 1.3 03/15/2023 CALCIUM 8.5 (L) 08/06/2023 TBIL 0.5 08/06/2023 SGOTAST 17 08/06/2023 SGPTALT 81 (H) 08/06/2023 ALKALINEPHO 61 08/06/2023 GFRNA >60 08/06/2023 GFRA >60 08/06/2023 No results found for: CPK , CPKI , CKMB , CKMBNI , CKMBPOCT , CKMBRELINDX , TROPONINI , POCTRP No results found for: FOLATE Lab Results Component Value Date LACTICA 1.4 07/29/2023 Lab Results Component Value Date [id number] 486 03/15/2023 Lab Results Component Value Date FERRITIN 23 04/24/2023 Lab Results Component Value Date GLUCOSEPOCT 193 (H) 07/31/2023 EKG: No results found. Imaging: No results found. By: Annie Jeffries MD, 08/06/2023 4:14 PM MATERIALS SUPERVISOR RIALS SUPERVISOR * Annie Jeffries MD - 08/05/2023 10:27 PM CST [facility] DA[facility] PROGRESS NOTE Iván Dumont is a 77 y.o. male at Hospital LOS: 8 days Assessment: Active Hospital Problems Diagnosis Date Noted ??? Acute respiratory failure with hypoxia (HCC) 07/28/2023 ??? RSV infection 07/28/2023 ??? Anemia ??? Thrombocytopenia (HCC) 02/02/2023 ??? Essential hypertension, benign 07/17/2020 Resolved Hospital Problems No resolved problems to display. Vitals: 08/05/23 1600 08/05/23 1700 08/05/23 1800 08/05/23 1930 Temp: TempSrc: Heart Rate (Monitor): 94 87 99 Pulse: Resp: 17 15 17 BP: 114/55 (!) 110/93 Height: Weight: SpO2: 95% I/O last 3 completed shifts: In: 1220 [P.O.:720; IV Piggyback:500] Out: 5000 [Urine:5000] Plan: Plan 1. Sepsis: ??Patient on admission met criteria for sepsis with tachycardia [place]achypnea, [place] [address], trending down 15,000 -[phone] this morning. ??Patient also had elevated lactic acid, most likely source RSV pneumonia 1/5 WBC downtredning 12 from 13.5 from 15.2. DC precedex gtt. Passed swallow. Extubated. Psych meds resumed. Stable to trx to the floor. 08/05/2023 --- WBC levels normalized. 2. Acute respiratory failure with hypoxia: ??Currently intubated sedated ??Secondary to RSV pneumonia, continue supportive treatment, patient currently on high-flow oxygen, ABG showed PO2 of 70. ??Pulmonology consult, trap setter consult requested. ?? 08/05/2023 --- Status post extubation. Patient on room air. 3. Hypertension: ??Patient blood pressure soft, hold antihypertensives. ??Blood pressure in 90s this morning. ?? 4. Positive MRSA nares: ??Patient has been on vancomycin for possible MRSA pneumonia. ??Chest x-rayshows interstitial and a airspace infiltrate. ??CT of the chest ordered. 5. Anxiety and depression: ??Continue home medication Ativan p.r.n.. ?? 6. Gastroesophageal reflux disease: Continue PPI. ?? 7. Atrial fibrillation: ??Rate controlled, currently on beta-lilly continue the same. ??Cardiology following. 8. Nutritions 08/05/2023 --- Speech pathology evaluation post extubation with diet adjusted to dysphagia 3 9. Disposition: ??Home with home health 10. VTE Prophylaxis: Lovenox 40mg Q24h 11. Code Status: Code Status: ??Full Code Discussed with trap setter, patient was intubated on 07/30/2023 Expected discharge date: 08/07/2023 Subjective: Interval History: Patient seen at bedside. No new complaints or issues referred. Awaiting placement. Review of Systems: A 14 point comprehensive review of systems was negative, except as documented in HPI. Objective: Exam: General: alert, oriented and in no acute distress. Skin: normal coloration and turgor, no rashes. HEENT: normocephalic, atraumatic. Pupils equal, round and reactive to light. Extraocular movements intact. Oronasopharynx pink and moist, no lesion or exudate. Neck: Supple. No JVD, lymphadenopathy thyromegaly or carotid bruits auscultated. CVS: RRR, S1/S2 normal, no murmurs, gallops or rubs. Chest: clear to auscultation, no wheezes, rales or rhonchi, symmetric air entry and normal respiratory effort. Abdominal: soft, nontender, nondistended. Positive Bowel sounds, no organomegaly appreciated. Extremities: no edema, no clubbing or cyanosis. Neuro: CN 2-12 grossly intact, normal speech, no focal findings or movement disorder noted. Gait not tested.. Lab Results: Lab Results Component Value Date PHARTERIAL 7.43 07/30/2023 PO2ART 76 07/30/2023 [id number] 34 (L) 07/30/2023 O2ART 92 (L) 07/30/2023 Lab Results Component Value Date WBC 8.06 08/05/2023 HEMOGLOBIN 12.9 (L) 08/05/2023 HEMATOCRIT 39.5 08/05/2023 PLATELETCNT 126 (L) 08/05/2023 MCV 92.7 08/05/2023 Lab Results Component Value Date SODIUM 137 08/05/2023 POTASSIUM 4.5 08/05/2023 CHLORIDE 105 08/05/2023 CO2VEN 21 (L) 08/05/2023 ANIONGAP 15.5 08/05/2023 GLUCOSE 72 08/05/2023 BUN 23 08/05/2023 CREATININE 0.63 (L) 08/05/2023 BCRATIO8 37 (H) 08/05/2023 TOTALPROTEIN 6.0 (L) 08/05/2023 ALBUMIN 3.2 (L) 08/05/2023 AGRATIO 1.3 03/15/2023 CALCIUM 8.5 (L) 08/05/2023 TBIL 0.6 08/05/2023 SGOTAST 35 (H) 08/05/2023 SGPTALT 97 (H) 08/05/2023 ALKALINEPHO 61 08/05/2023 GFRNA >60 08/05/2023 GFRA >60 08/05/2023 No results found for: CPK , CPKI , CKMB , CKMBNI , CKMBPOCT , CKMBRELINDX , TROPONINI , POCTRP No results found for: FOLATE Lab Results Component Value Date LACTICA 1.4 07/29/2023 Lab Results Component Value Date [id number] 486 03/15/2023 Lab Results Component Value Date FERRITIN 23 04/24/2023 Lab Results Component Value Date GLUCOSEPOCT 193 (H) 07/31/2023 EKG: No results found. Imaging: No results found. By: Annie Jeffries MD, 08/05/2023 10:27 PM MATERIALS SUPERVISOR RIALS SUPERVISOR * Allan Concepcion MD - 08/05/2023 9:46 AM CST PULMONARY PROGRESS NOTE Date of Service: 08/05/23 Iván Dumont is a 77 y.o. male at Hospital Day (LOS: 8 days) for acute hypoxic respiratory failure. Subjective: Patient is seen in follow-up for acute hypoxic resp failure Objective: The patient is appearing comfortable in NAD Stable post extubation. Currently on room air. Denies shortness of breath labs reviewed VITALS: BP 120/72 Pulse 94 Temp 97.6 ??F (36.4 ??C) Resp 16 Ht 6' (1.829 m) Wt 209 lb 11.2 oz (95.1 kg) SpO2 94% BMI 28.44 kg/m?? I&O: Intake/Output Summary (Last 24 hours) at 08/05/2023 0946 Last data filed at 08/05/2023 0600 Gross per 24 hour Intake 500 ml Output 2150 ml Net -1650 ml Body mass index is 28.44 kg/m??. Exam: General appearance: in no obvious distress. HEENT: Normocephalic, atraumatic, moist mucous membranes, eyes with anicteric sclera, corneas clear. Extraocular Movements intact. Pupils reactive to light and accomodation. No sinus tenderness.External inspection of ears and nose shows no lesion or scars. Neck: supple, symmetrical, trachea midline, no lymphadenopathy, thyroid: not enlarged, symmetric, no tenderness.. Thorax: the contour of the thorax is normal Lungs: no acute distress, normal percussion bilaterally. Clear breath sounds are auscultated bilaterally. No wheezes, crackles, rhonchi, or rubs were heard. There is no observed use of accessory muscles of breathing. Heart: regular rate and rhythm, S1, S2 normal, no murmur, click, rub or gallop, nondisplaced PMI. Abdomen: soft, non-tender, non-distended. There is no enlargement of the liver and spleen to palpation. Extremities: no cyanosis or clubbing. There is no edema of the lower extremities. Skin: warm, dry with no rash. Psych: the patient was , alert and oriented x3. Normal mood and effect. Ventilator Settings: Last Ventilator settings: Vent Mode: A/C FIO2 (%): 35 % SpO2: 94 % Set Vt (ml): 450 ml Resp Rate (Set): 20 PEEP/CPAP (cm H2O): 5 cm H20 Pressure Support (cm H2O): 10 cm H2O Current Facility-Administered Medications Medication Dose Route Frequency Provider Last Rate Last Admin ??? albuterol (PROVENTIL, VENTOLIN) (2.5 MG/3ML) 0.083% nebulizer solution 2.5 mg 2.5 mg Nebulization Q6H PRN Uri Ny MD ??? cloZAPine (CLOZARIL) tablet 100 mg 100 mg Oral Daily Uri Ny MD 100 mg at 08/05/23 0900 ??? cloZAPine (CLOZARIL) tablet 50 mg 50 mg Oral Nightly Uri Ny MD 50 mg at 08/04/232035 ??? enoxaparin (LOVENOX) injection 40 mg 40 mg Subcutaneous Daily Uri Ny MD 40 mg at 08/05/23 0900 ??? hydrALAZINE (APRESOLINE) injection 10 mg 10 mg Intravenous Q1H PRN Archie Hilario MD 10 mg at 08/02/23 1516 ??? lansoprazole (PREVACID SOLUTAB) disintegrating tablet 30 mg 30 mg Oral Daily Uri Ny MD 30 mg at 08/05/23 0900 ??? LORazepam (ATIVAN) tablet 1 mg 1 mg Oral Q6H PRN Uri Ny MD 1 mg at 07/30/23 0932 ??? metoprolol tartrate (LOPRESSOR) tablet 25 mg 25 mg Oral BID Uri Ny MD 25 mg at 08/05/23 0900 ??? [START ON 08/06/2023] predniSONE (DELTASONE) tablet 20 mg 20 mg Oral Daily with breakfast Allan Concepcion MD ??? sertraline (ZOLOFT) tablet 50 mg 50 mg Oral Daily Uri Ny MD 50 mg at 08/05/23 0900 Data Review ABGs: Lab Results Component Value Date PHARTERIAL 7.43 07/30/2023 PO2ART 76 07/30/2023 [id number] 34 (L) 07/30/2023 O2ART 92 (L) 07/30/2023 CBC: Lab Results Component Value Date WBC 8.06 08/05/2023 RBC 4.26 (L) 08/05/2023 HEMOGLOBIN 12.9 (L) 08/05/2023 HEMATOCRIT 39.5 08/05/2023 PLATELETCNT 126 (L) 08/05/2023 BMP: Lab Results Component Value Date GLUCOSE 72 08/05/2023 SODIUM 137 08/05/2023 POTASSIUM 4.5 08/05/2023 CHLORIDE 105 08/05/2023 BUN 23 08/05/2023 CREATININE 0.63 (L) 08/05/2023 CALCIUM 8.5 (L) 08/05/2023 No results found for: MAGNESIUM No results found for: PHOSPHORUS Coagulation: No results found for: PT , INR , APTT Results for orders placed or performed during the hospital encounter of 07/28/23 Blood Culture #2 Specimen: Blood; Culture Result Value Ref Range Status CULTURE RESULTS NO GROWTH WITHIN 5 DAYS, FINAL RESULT Final Blood Culture #1 Specimen: Blood; Culture Result Value Ref Range Status CULTURE RESULTS NO GROWTH WITHIN 5 DAYS, FINAL RESULT Final Radiology: XR CHEST SINGLE VIEW PORTABLE Result Date: 08/01/2023 IMPRESSION: Tubes and lines with stable abnormal chest as above. XR CHEST SINGLE VIEW PORTABLE Result Date: 07/30/2023 IMPRESSION: 1. Satisfactory position of the endotracheal and esophagogastric tubes. 2. Progressive bilateral lower lobe pneumonia. XR CHEST SINGLE VIEW PORTABLE Result Date: 07/30/2023 IMPRESSION: Continued worsening of bilateral airspace opacities worrisome for pneumonia. Small metallic foreign bodies at the midline and right-sided chest which are located posteriorly and superficially on CT of the chest. CT ANGIO CHEST W/WO CONTRAST WITH PP (POST PROCESSING) Result Date: 07/29/2023 IMPRESSION: 1. No PE. 2. Lung findings unchanged. CT CHEST W/O CONTRAST Result Date: 07/29/2023 IMPRESSION: 1. Examination is degraded by respiratory motion. There are small bilateral pleural effusions and bilateral pulmonary opacities, consistent with pneumonia. 2. Mildly enlarged precarinal lymph node which may be reactive. 3. Coronary artery disease 4. Small hiatal hernia XR CHEST SINGLE VIEW PORTABLE Result Date: 07/28/2023 IMPRESSION: Persistent though slightly improved interstitial and airspace infiltrates. XR CHEST SINGLE VIEW PORTABLE Result Date: 07/28/2023 IMPRESSION: Patchy bilateral lower lungs airspace opacities superimposed on diffusely coarsened interstitial markings; no pleural effusion. Patient Active Problem List Diagnosis ??? GERD without esophagitis ??? Mixed hyperlipidemia ??? Essential hypertension, benign ??? Chronic undifferentiated schizophrenia (HCC) ??? Thrombocytopenia (HCC) ??? Anemia ??? Need for hepatitis C screening test ??? Acute respiratory failure with hypoxia (HCC) ??? RSV infection No results found for this or any previous visit. Assessment: Acute hypoxemic respiratory failure due to RSV infection Plan PT/OT Nebulizers Aspiration precautions Completed antibx Continue p.o. prednisone ?? Atrial fibrillation Plan Continue beta-blockers per Cardiology ?? Anxiety/depression Plan Continue anxiolytics ? Total of 35 minutes of critical time was spent in direct patient care including review of medical records labs Radiology reports examined the patient formulating treatment plan and discussing the treatment plan with the patient care team and my documentation time Documentation for this visit on August 05 was completed using a template. I have seen and examined the patient. Everything documented was personally performed at this visit with the necessary additions, deletions and changes made as appropriate. Allan Concepcion MD 08/05/2023, 9:46 AM MATERIALS SUPERVISOR RIALS SUPERVISOR * Marcos García MD - 08/04/2023 5:56 PM CST [facility]IENT DAILY PROGRESS NOTE Iván Dumont is a 77 y.o. male at Hospital LOS: 7 days Subjective: Interval History: improving WOB. Denies F/C/CP/N/V/D. Review of Systems: A 14 point comprehensive review of systems was negative, except as documented in HPI. Objective: Vitals: 08/04/23 0500 08/04/23 0530 08/04/23 0715 08/04/23 0733 Temp: 97.2 ??F (36.2 ??C) TempSrc: Heart Rate (Monitor): 79 86 Pulse: Resp: 16 BP: 122/54 (!) 133/97 Height: Weight: SpO2: 92% 98% I/O last 3 completed shifts: In: 1044.8 [I.V.:294.8; IV Piggyback:750] Out: 4600 [Urine:4600] Exam: General: Alert, tired appearing, and NAD. HEENT: Normocephalic, atraumatic. Pupils equal, round and reactive to light. MMM Neck: Supple. No JVD. CVS: RRR, no MRG. Chest: normal WOB Abdominal: ND Extremities: Trace edema. Skin: No rashes. Psych: Flat affect. Neuro: CN II-XII grossly intact, normal speech. Gait not tested. Lab Results: Lab Results Component Value Date PHARTERIAL 7.43 07/30/2023 PO2ART 76 07/30/2023 [id number] 34 (L) 07/30/2023 O2ART 92 (L) 07/30/2023 Lab Results Component Value Date WBC 12.08 (H) 08/04/2023 HEMOGLOBIN 11.9 (L) 08/04/2023 HEMATOCRIT 37.6 (L) 08/04/2023 PLATELETCNT 171 08/04/2023 MCV 94.5 08/04/2023 Lab Results Component Value Date SODIUM 139 08/03/2023 POTASSIUM 4.8 08/03/2023 CHLORIDE 109 (H) 08/03/2023 CO2VEN 21 (L) 08/03/2023 ANIONGAP 13.8 08/03/2023 GLUCOSE 120 (H) 08/03/2023 BUN 29 (H) 08/03/2023 CREATININE 0.62 (L) 08/04/2023 BCRATIO8 48 (H) 08/03/2023 TOTALPROTEIN 5.8 (L) 08/03/2023 ALBUMIN 3.1 (L) 08/03/2023 AGRATIO 1.3 03/15/2023 CALCIUM 8.5 (L) 08/03/2023 TBIL 0.5 08/03/2023 SGOTAST 22 08/03/2023 SGPTALT 88 (H) 08/03/2023 ALKALINEPHO 63 08/03/2023 GFRNA >60 08/04/2023 GFRA >60 08/04/2023 No results found for: CPK , CPKI , CKMB , CKMBNI , CKMBPOCT , CKMBRELINDX , TROPONINI , POCTRP No results found for: FOLATE Lab Results Component Value Date LACTICA 1.4 07/29/2023 Lab Results Component Value Date [id number] 486 03/15/2023 Lab Results Component Value Date FERRITIN 23 04/24/2023 Lab Results Component Value Date GLUCOSEPOCT 193 (H) 07/31/2023 EKG: No results found. Imaging: No results found. Assessment: Active Hospital Problems Diagnosis Date Noted ??? Acute respiratory failure with hypoxia (HCC) 07/28/2023 ??? RSV infection 07/28/2023 ??? Anemia ??? Thrombocytopenia (HCC) 02/02/2023 ??? Essential hypertension, benign 07/17/2020 Resolved Hospital Problems No resolved problems to display. Plan: 1. Sepsis: Patient on admission met criteria for sepsis with tachycardia tachypnea, [place] [address], trending down 15,000 -[phone] this morning. Patient also had elevated lactic acid, most likely source RSV pneumonia. 1/5 WBC downtredning 12 from 13.5 from 15.2. DC precedex gtt.Passed swallow. Extubated. Psych meds resumed. Stable to trx to the floor. 2. Acute respiratory failure with hypoxia: Currently intubated sedated Secondary to RSV pneumonia, continue supportive treatment, patient currently on high-flow oxygen, ABG showed PO2 of 70. Pulmonology consult, trap setter consult requested. 3. Hypertension: Patient blood pressure soft, hold antihypertensives. Blood pressure in 90s this morning. 4. Positive MRSA nares: Patient has been on vancomycin for possible MRSA pneumonia. Chest x-ray shows interstitial and a airspace infiltrate. CT of the chest ordered. 5. Anxiety and depression: Continue home medication Ativan p.r.n.. 6. Gastroesophageal reflux disease: Continue PPI. 7. Atrial fibrillation: Rate controlled, currently on beta-lilly continue the same. Cardiology following. 8. Disposition: Home with home health 9. VTE Prophylaxis: Lovenox 40mg Q24h 10. Code Status: Code Status: Full Code Discussed with trap setter, patient was intubated on 07/30/2023 By: Marcos García MD, 08/04/2023 5:56 PM MATERIALS SUPERVISOR RIALS SUPERVISOR * Allan Concepcion MD - 08/04/2023 11:06 AM CST PULMONARY PROGRESS NOTE Date of Service: 08/04/23 Iván Dumont is a 77 y.o. male at Hospital Day (LOS: 7 days) for acute hypoxic respiratory failure. Subjective: Patient is seen in follow-up for acute hypoxic resp failure Objective: The patient is appearing comfortable in NAD Stable post extubation. Currently on room air. Denies shortness of breath sitting up in a recliner labs reviewed VITALS: BP (!) 133/97 Pulse 94 Temp 97.2 ??F (36.2 ??C) Resp 16 Ht 6' (1.829 m) Wt 209 lb11.2 oz (95.1 kg) SpO2 98% BMI 28.44 kg/m?? I&O: Intake/Output Summary (Last 24 hours) at 08/04/2023 1106 Last data filed at 08/04/2023 0545 Gross per 24 hour Intake 584.9 ml Output 3200 ml Net -2615.1 ml Body mass index is 28.44 kg/m??. Exam: General appearance: in no obvious distress. HEENT: Normocephalic, atraumatic, moist mucous membranes, eyes with anicteric sclera, corneas clear. Extraocular Movements intact. Pupils reactive to light and accomodation. No sinus tenderness.External inspection of ears and nose shows no lesion or scars. Neck: supple, symmetrical, trachea midline, no lymphadenopathy, thyroid: not enlarged, symmetric, no tenderness.. Thorax: the contour of the thorax is normal Lungs: no acute distress, normal percussion bilaterally. Clear breath sounds are auscultated bilaterally. No wheezes, crackles, rhonchi, or rubs were heard. There is no observed use of accessory muscles of breathing. Heart: regular rate and rhythm, S1, S2 normal, no murmur, click, rub or gallop, nondisplaced PMI. Abdomen: soft, non-tender, non-distended. There is no enlargement of the liver and spleen to palpation. Extremities: no cyanosis or clubbing. There is no edema of the lower extremities. Skin: warm, dry with no rash. Psych: the patient was , alert and oriented x3. Normal mood and effect. Ventilator Settings: Last Ventilator settings: Vent Mode: A/C FIO2 (%): 35 % SpO2: 98 % Set Vt (ml): 450 ml Resp Rate (Set): 20 PEEP/CPAP (cm H2O): 5 cm H20 Pressure Support (cm H2O): 10 cm H2O Current Facility-Administered Medications Medication Dose Route Frequency Provider Last Rate Last Admin ??? albuterol (PROVENTIL, VENTOLIN) (2.5 MG/3ML) 0.083% nebulizer solution 2.5 mg 2.5 mg Nebulization Q6H PRN Uri Ny MD ??? cloZAPine (CLOZARIL) tablet 100 mg 100 mg Oral Daily Uri Ny MD 100 mg at 08/04/23911 ??? cloZAPine (CLOZARIL) tablet 50 mg 50 mg Oral Nightly Uri Ny MD 50 mg at 08/03/232050 ??? enoxaparin (LOVENOX) injection 40 mg 40 mg Subcutaneous Daily Uri Ny MD 40 mg at 08/04/2312 ??? hydrALAZINE (APRESOLINE) injection 10 mg 10 mg Intravenous Q1H PRN Archie Hilario MD 10 mg at 08/02/23 1516 ??? lansoprazole (PREVACID SOLUTAB) disintegrating tablet 30 mg 30 mg Oral Daily Uri Ny MD 30 mg at 08/04/23 0912 ??? LORazepam (ATIVAN) tablet 1 mg 1 mg Oral Q6H PRN Uri Ny MD 1 mg at 07/30/23 0932 ??? metoprolol tartrate (LOPRESSOR) tablet 25 mg 25 mg Oral BID Uri Ny MD 25 mg at 08/04/23 0913 ??? predniSONE (DELTASONE) tablet 30 mg 30 mg Oral Daily with breakfast Allan Concepcion MD 30 mg at 08/04/23 0913 ??? sertraline (ZOLOFT) tablet 50 mg 50 mg Oral Daily Uri Ny MD 50 mg at 08/04/23 0913 ??? Vancomycin HCl in NaCl 1.5-0.9 GM/250ML-% premix 1,500 mg 1,500 mg Intravenous Q12H Marcos García MD Stopped at 08/04/23 1107 Data Review ABGs: Lab Results Component Value Date PHARTERIAL 7.43 07/30/2023 PO2ART 76 07/30/2023 [id number] 34 (L) 07/30/2023 O2ART 92 (L) 07/30/2023 CBC: Lab Results Component Value Date WBC 12.08 (H) 08/04/2023 RBC 3.98 (L) 08/04/2023 HEMOGLOBIN 11.9 (L) 08/04/2023 HEMATOCRIT 37.6 (L) 08/04/2023 PLATELETCNT 171 08/04/2023 BMP: Lab Results Component Value Date GLUCOSE 120 (H) 08/03/2023 SODIUM 139 08/03/2023 POTASSIUM 4.8 08/03/2023 CHLORIDE 109 (H) 08/03/2023 BUN 29 (H) 08/03/2023 CREATININE 0.62 (L) 08/04/2023 CALCIUM 8.5 (L) 08/03/2023 No results found for: MAGNESIUM No results found for: PHOSPHORUS Coagulation: No results found for: PT , INR , APTT Results for orders placed or performed during the hospital encounter of 07/28/23 Blood Culture #2 Specimen: Blood; Culture Result Value Ref Range Status CULTURE RESULTS NO GROWTH WITHIN 5 DAYS, FINAL RESULT Final Blood Culture #1 Specimen: Blood; Culture Result Value Ref Range Status CULTURE RESULTS NO GROWTH WITHIN 5 DAYS, FINAL RESULT Final Radiology: XR CHEST SINGLE VIEW PORTABLE Result Date: 08/01/2023 IMPRESSION: Tubes and lines with stable abnormal chest as above. XR CHEST SINGLE VIEW PORTABLE Result Date: 07/30/2023 IMPRESSION: 1. Satisfactory position of the endotracheal and esophagogastric tubes. 2. Progressive bilateral lower lobe pneumonia. XR CHEST SINGLE VIEW PORTABLE Result Date: 07/30/2023 IMPRESSION: Continued worsening of bilateral airspace opacities worrisome for pneumonia. Small metallic foreign bodies at the midline and right-sided chest which are located posteriorly and superficially on CT of the chest. CT ANGIO CHEST W/WO CONTRAST WITH PP (POST PROCESSING) Result Date: 07/29/2023 IMPRESSION: 1. No PE. 2. Lung findings unchanged. CT CHEST W/O CONTRAST Result Date: 07/29/2023 IMPRESSION: 1. Examination is degraded by respiratory motion. There are small bilateral pleural effusions and bilateral pulmonary opacities, consistent with pneumonia. 2. Mildly enlarged precarinal lymph node which may be reactive. 3. Coronary artery disease 4. Small hiatal hernia XR CHEST SINGLE VIEW PORTABLE Result Date: 07/28/2023 IMPRESSION: Persistent though slightly improved interstitial and airspace infiltrates. XR CHEST SINGLE VIEW PORTABLE Result Date: 07/28/2023 IMPRESSION: Patchy bilateral lower lungs airspace opacities superimposed on diffusely coarsened interstitial markings; no pleural effusion. Patient Active Problem List Diagnosis ??? GERD without esophagitis ??? Mixed hyperlipidemia ??? Essential hypertension, benign ??? Chronic undifferentiated schizophrenia (HCC) ??? Thrombocytopenia (HCC) ??? Anemia ??? Need for hepatitis C screening test ??? Acute respiratory failure with hypoxia (HCC) ??? RSV infection No results found for this or any previous visit. Assessment: Acute hypoxemic respiratory failure due to RSV infection Plan PT/OT Nebulizers Aspiration precautions Continue current antibiotics for 10 days Continue p.o. prednisone ?? Atrial fibrillation Plan Continue beta-blockers per Cardiology ?? Anxiety/depression Plan Continue anxiolytics ? Total of 35 minutes of critical time was spent in direct patient care including review of medical records labs Radiology reports examined the patient formulating treatment plan and discussing the treatment plan with the patient care team and my documentation time Documentation for this visit on August 04 was completed using a template. I have seen and examined the patient. Everything documented was personally performed at this visit with the necessary additions, deletions and changes made as appropriate. Allan Concepcion MD 08/04/2023, 11:06 AM MATERIALS SUPERVISOR RIALS SUPERVISOR * Allan Concepcion MD - 08/03/2023 12:45 PM CST PULMONARY PROGRESS NOTE Date of Service: 08/03/23 Iván Dumont is a 77 y.o. male at Hospital Day (LOS: 6 days) for acute hypoxic respiratory failure. Subjective: Patient is seen in follow-up for acute hypoxic resp failure Objective: The patient is appearing comfortable in NAD He was extubated yesterday. Currently on room air. Denies shortness of breath VITALS: BP 115/42 Pulse 94 Temp 97.2 ??F (36.2 ??C) Resp 10 Ht 6' (1.829 m) Wt 209 lb 11.2 oz (95.1 kg) SpO2 97% BMI 28.44 kg/m?? I&O: Intake/Output Summary (Last 24 hours) at 08/03/2023 1245 Last data filed at 08/03/2023 0545 Gross per 24 hour Intake 774.96 ml Output 3650 ml Net -2875.04 ml Body mass index is 28.44 kg/m??. Exam: General appearance: in no obvious distress. HEENT: Normocephalic, atraumatic, moist mucous membranes, eyes with anicteric sclera, corneas clear. Extraocular Movements intact. Pupils reactive to light and accomodation. No sinus tenderness.External inspection of ears and nose shows no lesion or scars. Neck: supple, symmetrical, trachea midline, no lymphadenopathy, thyroid: not enlarged, symmetric, no tenderness.. Thorax: the contour of the thorax is normal Lungs: no acute distress, normal percussion bilaterally. Clear breath sounds are auscultated bilaterally. No wheezes, crackles, rhonchi, or rubs were heard. There is no observed use of accessory muscles of breathing. Heart: regular rate and rhythm, S1, S2 normal, no murmur, click, rub or gallop, nondisplaced PMI. Abdomen: soft, non-tender, non-distended. There is no enlargement of the liver and spleen to palpation. Extremities: no cyanosis or clubbing. There is no edema of the lower extremities. Skin: warm, dry with no rash. Psych: the patient was , alert and oriented x3. Normal mood and effect. Ventilator Settings: Last Ventilator settings: Vent Mode: A/C FIO2 (%): 35 % SpO2: 97 % Set Vt (ml): 450 ml Resp Rate (Set): 20 PEEP/CPAP (cm H2O): 5 cm H20 Pressure Support (cm H2O): 10 cm H2O Current Facility-Administered Medications Medication Dose Route Frequency Provider Last Rate Last Admin ??? [Held By Provider] cloZAPine (CLOZARIL) tablet 100 mg 100 mg Oral Daily Adriana Shine MD 100mg at 08/02/23 0952 ??? [Held By Provider] cloZAPine (CLOZARIL) tablet 50 mg 50 mg Oral Nightly Uri Ny MD ??? dexmedetomidine HCl in NaCl (PRECEDEX) 400 MCG/100ML infusion 0.2-1 mcg/kg/hr Intravenous Continuous Archie Hilario MD Stopped at 08/03/23 0815 ??? enoxaparin (LOVENOX) injection 40 mg 40 mg Subcutaneous Daily Uri Ny MD 40 mg at 08/03/23 0947 ??? hydrALAZINE (APRESOLINE) injection 10 mg 10 mg Intravenous Q1H PRN Archie Hilario MD 10 mg at 08/02/23 1516 ??? ipratropium-albuterol (DUO-NEB) 0.5-2.5 (3) MG/3ML nebulizer solution 3 mL 3 mL Nebulization Q4H Archie Hilario MD 3 mL at 08/03/23 1121 ??? lansoprazole (PREVACID SOLUTAB) disintegrating tablet 30 mg 30 mg Oral Daily Uri Ny MD 30 mg at 08/02/23 0953 ??? LORazepam (ATIVAN) tablet 1 mg 1 mg Oral Q6H PRN Uri Ny MD 1 mg at 07/30/23 0932 ??? [Held By Provider] metoprolol tartrate (LOPRESSOR) tablet 25 mg 25 mg Oral BID Archie Hilario MD 25 mg at 08/02/23 0953 ??? [START ON 08/04/2023] predniSONE (DELTASONE) tablet 30 mg 30 mg Oral Daily with breakfast Allan Concepcion MD ??? [Held By Provider] sertraline (ZOLOFT) tablet 50 mg 50 mg Oral Daily Adriana Shine MD 50 mg at 08/02/23 0953 ??? Vancomycin HCl in NaCl 1.5-0.9 GM/250ML-% premix 1,500 mg 1,500 mg Intravenous Q12H Uri Ny MD Stopped at 08/03/23 1117 Data Review ABGs: Lab Results Component Value Date PHARTERIAL 7.43 07/30/2023 PO2ART 76 07/30/2023 [id number] 34 (L) 07/30/2023 O2ART 92 (L) 07/30/2023 CBC: Lab Results Component Value Date WBC 13.51 (H) 08/03/2023 RBC 3.76 (L) 08/03/2023 HEMOGLOBIN 11.3 (L) 08/03/2023 HEMATOCRIT 35.1 (L) 08/03/2023 PLATELETCNT 164 08/03/2023 BMP: Lab Results Component Value Date GLUCOSE 120 (H) 08/03/2023 SODIUM 139 08/03/2023 POTASSIUM 4.8 08/03/2023 CHLORIDE 109 (H) 08/03/2023 BUN 29 (H) 08/03/2023 CREATININE 0.60 (L) 08/03/2023 CALCIUM 8.5 (L) 08/03/2023 No results found for: MAGNESIUM No results found for: PHOSPHORUS Coagulation: No results found for: PT , INR , APTT Results for orders placed or performed during the hospital encounter of 07/28/23 Blood Culture #2 Specimen: Blood; Culture Result Value Ref Range Status CULTURE RESULTS NO GROWTH WITHIN 5 DAYS, FINAL RESULT Final Blood Culture #1 Specimen: Blood; Culture Result Value Ref Range Status CULTURE RESULTS NO GROWTH WITHIN 5 DAYS, FINAL RESULT Final Radiology: XR CHEST SINGLE VIEW PORTABLE Result Date: 08/01/2023 IMPRESSION: Tubes and lines with stable abnormal chest as above. XR CHEST SINGLE VIEW PORTABLE Result Date: 07/30/2023 IMPRESSION: 1. Satisfactory position of the endotracheal and esophagogastric tubes. 2. Progressive bilateral lower lobe pneumonia. XR CHEST SINGLE VIEW PORTABLE Result Date: 07/30/2023 IMPRESSION: Continued worsening of bilateral airspace opacities worrisome for pneumonia. Small metallic foreign bodies at the midline and right-sided chest which are located posteriorly and superficially on CT of the chest. CT ANGIO CHEST W/WO CONTRAST WITH PP (POST PROCESSING) Result Date: 07/29/2023 IMPRESSION: 1. No PE. 2. Lung findings unchanged. CT CHEST W/O CONTRAST Result Date: 07/29/2023 IMPRESSION: 1. Examination is degraded by respiratory motion. There are small bilateral pleural effusions and bilateral pulmonary opacities, consistent with pneumonia. 2. Mildly enlarged precarinal lymph node which may be reactive. 3. Coronary artery disease 4. Small hiatal hernia XR CHEST SINGLE VIEW PORTABLE Result Date: 07/28/2023 IMPRESSION: Persistent though slightly improved interstitial and airspace infiltrates. XR CHEST SINGLE VIEW PORTABLE Result Date: 07/28/2023 IMPRESSION: Patchy bilateral lower lungs airspace opacities superimposed on diffusely coarsened interstitial markings; no pleural effusion. Patient Active Problem List Diagnosis ??? GERD without esophagitis ??? Mixed hyperlipidemia ??? Essential hypertension, benign ??? Chronic undifferentiated schizophrenia (HCC) ??? Thrombocytopenia (HCC) ??? Anemia ??? Need for hepatitis C screening test ??? Acute respiratory failure with hypoxia (HCC) ??? RSV infection No results found for this or any previous visit. Assessment: Acute hypoxemic respiratory failure due to RSV infection Plan PT/OT Nebulizers Aspiration precautions Continue current antibiotics DC IV steroids Start p.o. prednisone ?? Atrial fibrillation Plan Continue beta-blockers per Cardiology ?? Anxiety/depression Plan Continue anxiolytics ? Total of 40 minutes of critical time was spent in direct patient care including review of medical records labs Radiology reports examined the patient formulating treatment plan and discussing the treatment plan with the patient care team and my documentation time Documentation for this visit on August 03 was completed using a template. I have seen and examined the patient. Everything documented was personally performed at this visit with the necessary additions, deletions and changes made as appropriate. Allan Concepcion MD 08/03/2023, 12:45 PM MATERIALS SUPERVISOR RIALS SUPERVISOR * Uri Ny MD - 08/03/2023 11:29 AM CST [facility] INPATIENT DAILY PROGRESS NOTE Iván Dumont is a 77 y.o. male at Hospital LOS: 6 days Assessment: Active Hospital Problems Diagnosis Date Noted ??? Acute respiratory failure with hypoxia (HCC) 07/28/2023 ??? RSV infection 07/28/2023 ??? Anemia ??? Thrombocytopenia (HCC) 02/02/2023 ??? Essential hypertension, benign 07/17/2020 Resolved Hospital Problems No resolved problems to display. Vitals: 08/03/23 0650 08/03/23 0800 08/03/23 0850 08/03/23 1050 Temp: 97.3 ??F (36.3 ??C) 97.2 ??F (36.2 ??C) TempSrc: Tympanic Heart Rate (Monitor): Pulse: Resp: BP: Height: Weight: 209 lb 11.2 oz (95.1 kg) SpO2: 97% O2 Flow Rate (l/min): 2 l/min O2 Device: None (Room air) Body mass index is 28.44 kg/m??. I/O last 3 completed shifts: In: 7 [I.V.:377; NG/GT:1110; IV Piggyback:750] Out: 5650 [Urine:5650] Plan: Plan Assessment & Plan: 1. Sepsis: Patient on admission met criteria for sepsis with tachycardia [place], [place] [address], trending down 15,000 [phone] this morning. Patient also had elevated lactic acid, most likely source RSV pneumonia. 2. Acute respiratory failure with hypoxia: Currently intubated sedated Secondary to RSV pneumonia, continue supportive treatment, patient currently on high-flow oxygen, ABG showed PO2 of 70. Pulmonology consult, trap setter following, patient was intubated and later extubated on 08/02/2023. Failed swallow evaluation post extubation. 3. Hypertension: Patient blood pressure soft, hold antihypertensives. Blood pressure in 90s this morning. 4. Positive MRSA nares: Patient has been on vancomycin for possible MRSA pneumonia. Chest x-ray shows interstitial and a airspace infiltrate. CT of the chest ordered. 5. Anxiety and depression: Continue home medication Ativan p.r.n.. 6. Gastroesophageal reflux disease: Continue PPI. 7. Atrial fibrillation: Rate controlled, currently on beta-lilly continue the same. Cardiology following. 8. Disposition: Home with home health 9. VTE Prophylaxis: Lovenox 40mg Q24h 10. Code Status: Code Status: Full Code Discussed with trap setter, patient was intubated on 07/30/2023 and extubated on 08/02/2023. Subjective: Interval History: No acute events overnight. Patient was agitated and confused last night, currently on Precedex drip. Speech for swallow evaluation. Intake/Output Summary (Last 24 hours) at 08/03/2023 1129 Last data filed at 08/03/2023 0545 Gross per 24 hour Intake 774.96 ml Output 3650 ml Net -2875.04 ml Inpatient Scheduled Medications: [Held By Provider] cloZAPine, 100 mg, Daily [Held By Provider] cloZAPine, 50 mg, Nightly enoxaparin, 40 mg, Daily ipratropium-albuterol, 3 mL, Q4H lansoprazole, 30 mg, Daily methylPREDNIsolone, 40 mg, Q12H [Held By Provider] metoprolol tartrate, 25 mg, BID [Held By Provider] sertraline, 50 mg, Daily vancomycin, 1,500 mg, Q12H Inpatient PRN Medications: hydrALAZINE, 10 mg, Q1H PRN LORazepam, 1 mg, Q6H PRN Inpatient IV Infusions: dexmedetomidine (PRECEDEX) infusion, Last Rate: Stopped (08/03/23 0815) Objective: Exam: General: alert, moderately built and nourished, not in any distress Skin: Normal skin turgor, no rashes Head: Normocephalic, without obvious abnormality HEENT: PERRLA, sclera anicteric Neck: normal, supple, no thyromegaly Heart: regular rate and rhythm, S1, S2 normal, no murmur, click, rub or gallop Lungs: clear to auscultation bilaterally, no rhonchi or wheezes Abdominal: soft, distended, non-tender; bowel sounds normal; no masses, no organomegaly Extremities: normal strength, tone, and muscle mass Neuro: oriented x2, CN II-XII intact Psychological: appropriate Last Ventilator settings: Vent Mode: A/C FIO2 (%): 35 % SpO2: 97 % Set Vt (ml): 450 ml Resp Rate (Set): 20 PEEP/CPAP (cm H2O): 5 cm H20 Pressure Support (cm H2O): 10 cm H2O Lab Results: Lab Results Component Value Date PHARTERIAL 7.43 07/30/2023 PO2ART 76 07/30/2023 [id number] 34 (L) 07/30/2023 O2ART 92 (L) 07/30/2023 No results for input(s): BNP , BNPPOCT in the last 72 hours. Recent Labs Units 08/03/23 0512 08/02/2345608/01/23455 WBC 10(3)/mcL 13.51* 15.28* 13.28* HEMOGLOBIN g/dL 11.3* 11.3* 10.5* HEMATOCRIT % 35.1* 35.1* 33.1* PLATELETCNT 10(3)/mcL 164 135* 80* MCV fL 93.4 93.4 95.1 No results for input(s): INR , PTP in the last 72 hours. Recent Labs Units 08/03/23 0508/02/2345608/01/23455 SODIUM mmol/L 139 138 141 POTASSIUM mmol/L 4.8 4.9 4.7 CHLORIDE mmol/L 109* 108* 111* CO2VEN mmol/L 21* 23 22 ANIONGAP mmol/L 13.8 11.9 12.7 GLUCOSE mg/dL 120* 146* 158* BUN mg/dL 29* 25 25 CREATININE mg/dL 0.60* 0.71 0.69* BCRATIO8 ratio 48* 35* 36* TOTALPROTEIN g/dL 5.8* 6.3 5.9* ALBUMIN g/dL 3.1* 3.4* 3.1* CALCIUM mg/dL 8.5* 8.6* 8.1* TBIL mg/dL 0.5 0.4 0.4 SGOTAST U/L 22 40* 31 SGPTALT U/L 88* 123* 106* ALKALINEPHO U/L 63 64 60 GFRNA >60 >60 >60 GFRA >60 >60 >60 No results found for: CPK , CPKI , CKMB , CKMBNI , CKMBPOCT , CKMBRELINDX , TROPONINI , POCTRP No results found for: FOLATE No results found for: MAGNESIUM Lab Results Component Value Date LACTICA 1.4 07/29/2023 Lab Results Component Value Date [id number] 486 03/15/2023 Lab Results Component Value Date FERRITIN 23 04/24/2023 Lab Results Component Value Date GLUCOSEPOCT 193 (H) 07/31/2023 Lab Results Component Value Date DDIMER 1.71 (H) 07/29/2023 EKG: No results found. Imaging: XR CHEST SINGLE VIEW PORTABLE Result Date: 08/02/2023 IMPRESSION: Small left-sided pleural effusion has improved from the reference examination. Bibasilar airspace opacities appear unchanged. Total amount of critical care time spent in patient care 40 minutes. By: Uri Ny MD, 08/03/2023 11:29 AM MATERIALS SUPERVISOR RIALS SUPERVISOR * Archie Hilario MD - 08/03/2023 5:30 AM CST INPATIENT PROGRESS NOTE - [employer] Iván Serrato Marva is a 77 y.o. male at Hospital Day (LOS: 5 days) This patient has been followed by Critical Care because of: Respiratory failure RSV and bacterial MRSA pneumonia altered mental status. Subjective: Awake. Objective: Temp Av.2 ??F (36.2 ??C) Min: 96.7 ??F (35.9 ??C) Max: 97.6 ??F (36.4 ??C) BP Min: 107/65 Max: 164/137 Heart Rate (Monitor) Av.2 Min: 55 Max: 110 Resp Av.9 Min: 11 Max: 28 SpO2 Av.7 % Min: 88 % Max: 98 % O2 Flow Rate (l/min): 2 l/min I/O last 3 completed shifts: In: 3046 [I.V.:283; NG/GT:2012; IV Piggyback:750] Out: 5800 [Urine:5800] Stool Occurrence: 0 (07/30/23 2152) Stool Amount: Medium (08/02/23 1400) Weights: Wt Readings from Last 3 Encounters: 07/28/23 208 lb 8 oz (94.6 kg) 07/26/23 202 lb 11.2 oz (91.9 kg) 06/20/23 206 lb (93.4 kg) PHYSICAL EXAM: Head within normal limits Neck supple Chest clear Heart sounds regular Abdomen soft Perfusing extremities 1+ pedal edema Oxygen 2 L nasal cannula Precedex infusion Active Scheduled and PRN meds cefTRIAXone (ROCEPHIN) IV/IM, 2 g, Q24H [Held By Provider] cloZAPine, 100 mg, Daily [Held By Provider] cloZAPine, 50 mg, Nightly enoxaparin, 40 mg, Daily ipratropium-albuterol, 3 mL, Q4H lansoprazole, 30 mg, Daily methylPREDNIsolone, 40 mg, Q12H [Held By Provider] metoprolol tartrate, 25 mg, BID [Held By Provider] sertraline, 50 mg, Daily vancomycin, 1,500 mg, Q12H hydrALAZINE, 10 mg, Q1H PRN LORazepam, 1 mg, Q6H PRN magnesium hydroxide, 30 mL, Daily PRN midazolam, 2-4 mg, Q5 Min PRN midazolam, 2-4 mg, Q1H PRN polyethylene glycol, 17 g, BID PRN senna, 1 Tablet, BID PRN Lab Review Lab Results Component Value Date WBC 15.28 (H) 08/02/2023 HEMOGLOBIN 11.3 (L) 08/02/2023 HEMATOCRIT 35.1 (L) 08/02/2023 PLATELETCNT 135 (L) 08/02/2023 MCV 93.4 08/02/2023 Lab Results Component Value Date SODIUM 138 08/02/2023 POTASSIUM 4.9 08/02/2023 CHLORIDE 108 (H) 08/02/2023 CO2VEN 23 08/02/2023 GLUCOSE 146 (H) 08/02/2023 BUN 25 08/02/2023 CREATININE 0.71 08/02/2023 CALCIUM 8.6 (L) 08/02/2023 ALBUMIN 3.4 (L) 08/02/2023 Lab Results Component Value Date SODIUM 138 08/02/2023 POTASSIUM 4.9 08/02/2023 CHLORIDE 108 (H) 08/02/2023 CO2VEN 23 08/02/2023 GLUCOSE 146 (H) 08/02/2023 ANIONGAP 11.9 08/02/2023 BUN 25 08/02/2023 CREATININE 0.71 08/02/2023 CALCIUM 8.6 (L) 08/02/2023 Lab Results Component Value Date SODIUM 138 08/02/2023 POTASSIUM 4.9 08/02/2023 CHLORIDE 108 (H) 08/02/2023 CO2VEN 23 08/02/2023 ANIONGAP 11.9 08/02/2023 GLUCOSE 146 (H) 08/02/2023 BUN 25 08/02/2023 CREATININE 0.71 08/02/2023 BCRATIO8 35 (H) 08/02/2023 TOTALPROTEIN 6.3 08/02/2023 ALBUMIN 3.4 (L) 08/02/2023 AGRATIO 1.3 03/15/2023 CALCIUM 8.6 (L) 08/02/2023 TBIL 0.4 08/02/2023 SGOTAST 40 (H) 08/02/2023 SGPTALT 123 (H) 08/02/2023 ALKALINEPHO 64 08/02/2023 GFRNA >60 08/02/2023 GFRA >60 08/02/2023 No results found for: INR , PTP Lab Results Component Value Date PHARTERIAL 7.43 07/30/2023 PO2ART 76 07/30/2023 [id number] 34 (L) 07/30/2023 O2ART 92 (L) 07/30/2023 Radiology Results were Reviewed Labs/chart/meds reviewed. Assessment/Plan: 1. Neurologically: Awake cooperative agitated history of bipolar disorder continue low-dose Precedex restart benzodiazepines 2. Cardiovascular: Stable Lopressor for hypertension 3. Respiratory: Extubated stable on nasal cannula 4. GI: Continue GI prophylaxis speech pathology advance diet 5. and renal: Stable 6. Endocrine: Glycemic control with insulin as needed 7. Hematologically: Daily counts stable chronic thrombocytopenia 8. DVT prophylaxis: SCD and subQ heparin 9. Id: RSV pneumonia continue steroids completed Zithromax continue vancomycin ceftriaxone MRSA pneumonia Also a total of 50 minutes of critical care time were delivered to the patient today excluding procedures. Voice recognition software was used to dictate this note. In spite of proofreading, typographical and/or content errors may have occurred. Archie Hilario MD 08/03/2023 5:30 AM MATERIALS SUPERVISOR RIALS SUPERVISOR * Uri Ny MD - 08/02/2023 9:52 AM CST [facility] INPATIENT DAILY PROGRESS NOTE Iván Dumont is a 77 y.o. male at Hospital LOS: 5 days Assessment: Active Hospital Problems Diagnosis Date Noted ??? Acute respiratory failure with hypoxia (HCC) 07/28/2023 ??? RSV infection 07/28/2023 ??? Anemia ??? Thrombocytopenia (HCC) 02/02/2023 ??? Essential hypertension, benign 07/17/2020 Resolved Hospital Problems No resolved problems to display. Vitals: 08/02/23 0400 08/02/23 0500 08/02/23 0600 08/02/23 0700 Temp: 97.7 ??F (36.5 ??C) TempSrc: Tympanic Heart Rate (Monitor): 94 (!) 103 100 77 Pulse: Resp: 19 21 21 21 BP: 160/82 152/71 142/85 139/72 Height: Weight: SpO2: 92% 97% 97% 97% O2 Flow Rate (l/min): 20 l/min O2 Device: Ventilator Body mass index is 28.28 kg/m??. I/O last 3 completed shifts: In: 2769.4 [I.V.:378.4; NG/GT:1641; IV Piggyback:750] Out: 4275 [Urine:4275] Plan: Plan Assessment & Plan: 1. Sepsis: Patient on admission met criteria for sepsis with tachycardia [place], [place] [address], trending down 15,000 -[phone] this morning. Patient also had elevated lactic acid, most likely source RSV pneumonia. 2. Acute respiratory failure with hypoxia: Currently intubated sedated Secondary to RSV pneumonia, continue supportive treatment, patient currently on high-flow oxygen, ABG showed PO2 of 70. Pulmonology consult, trap setter consult requested. 3. Hypertension: Patient blood pressure soft, hold antihypertensives. Blood pressure in 90s this morning. 4. Positive MRSA nares: Patient has been on vancomycin for possible MRSA pneumonia. Chest x-ray shows interstitial and a airspace infiltrate. CT of the chest ordered. 5. Anxiety and depression: Continue home medication Ativan p.r.n.. 6. Gastroesophageal reflux disease: Continue PPI. 7. Atrial fibrillation: Rate controlled, currently on beta-lilly continue the same. Cardiology following. 8. Disposition: Home with home health 9. VTE Prophylaxis: Lovenox 40mg Q24h 10. Code Status: Code Status: Full Code Discussed with trap setter, patient was intubated on 07/30/2023 Subjective: Interval History: No acute events overnight. Patient currently intubated and sedated. Patient had abreathing trial yesterday, plan for extubation today. Intake/Output Summary (Last 24 hours) at 08/02/2023 0952 Last data filed at 08/02/2023 0700 Gross per 24 hour Intake 2730.92 ml Output 3550 ml Net -819.08 ml Inpatient Scheduled Medications: cefTRIAXone (ROCEPHIN) IV/IM, 2 g, Q24H cloZAPine, 100 mg, Daily cloZAPine, 50 mg, Nightly enoxaparin, 40 mg, Daily ipratropium-albuterol, 3 mL, Q4H lansoprazole, 30 mg, Daily methylPREDNIsolone, 40 mg, Q12H metoprolol tartrate, 25 mg, BID sertraline, 50 mg, Daily vancomycin, 1,500 mg, Q12H Inpatient PRN Medications: LORazepam, 1 mg, Q6H PRN magnesium hydroxide, 30 mL, Daily PRN midazolam, 2-4 mg, Q5 Min PRN midazolam, 2-4 mg, Q1H PRN polyethylene glycol, 17 g, BID PRN senna, 1 Tablet, BID PRN Inpatient IV Infusions: midazolam (VERSED) infusion, Last Rate: 10 mg/hr (08/02/23 5614) Objective: Exam: General: Sedated moderately built and nourished, moderate distress Skin: Normal skin turgor, no rashes Head: Normocephalic, without obvious abnormality HEENT: PERRLA, sclera anicteric Neck: normal, supple, no thyromegaly Heart: Tachycardic, irregularly irregular rhythm, S1, S2 normal, no murmur, click, rub or gallop Lungs: Bilateral diffuse crackles, expiratory wheezes Abdominal: soft, distended,; bowel sounds normal; no masses, no organomegaly Extremities: normal strength, tone, and muscle mass Neuro: Intubated and sedated Last Ventilator settings: Vent Mode: A/C FIO2 (%): 35 % SpO2: 97 % Set Vt (ml): 450 ml Resp Rate (Set): 20 PEEP/CPAP (cm H2O): 5 cm H20 Pressure Support (cm H2O): 10 cm H2O Lab Results: Lab Results Component Value Date PHARTERIAL 7.43 07/30/2023 PO2ART 76 07/30/2023 [id number] 34 (L) 07/30/2023 O2ART 92 (L) 07/30/2023 No results for input(s): BNP , BNPPOCT in the last 72 hours. Recent Labs Units 08/02/2345608/01/2345507/31/23432 WBC 10(3)/mcL 15.28* 13.28* 11.32 HEMOGLOBIN g/dL 11.3* 10.5* 10.5* HEMATOCRIT % 35.1* 33.1* 32.4* PLATELETCNT 10(3)/mcL 135* 80* 59* MCV fL 93.4 95.1 94.7 No results for input(s): INR , PTP in the last 72 hours. Recent Labs Units 08/02/2345608/01/2345507/31/23432 SODIUM mmol/L 138 141 -- POTASSIUM mmol/L 4.9 4.7 -- CHLORIDE mmol/L 108* 111* -- CO2VEN mmol/L 23 22 -- ANIONGAP mmol/L 11.9 12.7 -- GLUCOSE mg/dL 146* 158* -- BUN mg/dL 25 25 -- CREATININE mg/dL 0.71 0.69* 0.70 BCRATIO8 ratio 35* 36* -- TOTALPROTEIN g/dL 6.3 5.9* -- ALBUMIN g/dL 3.4* 3.1* -- CALCIUM mg/dL 8.6* 8.1* -- TBIL mg/dL 0.4 0.4 -- SGOTAST U/L 40* 31 -- SGPTALT U/L 123* 106* -- ALKALINEPHO U/L 64 60 -- GFRNA >60 >60 >60 GFRA >60 >60 >60 No results found for: CPK , CPKI , CKMB , CKMBNI , CKMBPOCT , CKMBRELINDX , TROPONINI , POCTRP No results found for: FOLATE No results found for: MAGNESIUM Lab Results Component Value Date LACTICA 1.4 07/29/2023 Lab Results Component Value Date [id number] 486 03/15/2023 Lab Results Component Value Date FERRITIN 23 04/24/2023 Lab Results Component Value Date GLUCOSEPOCT 193 (H) 07/31/2023 Lab Results Component Value Date DDIMER 1.71 (H) 07/29/2023 EKG: No results found. Imaging: No results found. Total amount of critical care time spent in patient care 40 minutes. By: Uri Ny MD, 08/02/2023 9:52 AM MATERIALS SUPERVISOR RIALS SUPERVISOR * Allan Concepcion MD - 08/02/2023 9:00 AM CST PULMONARY PROGRESS NOTE Date of Service: 08/02/23 Iván Dumont is a 77 y.o. male at Hospital Day (LOS: 5 days) for acute hypoxic respiratory failure. Subjective: Patient is seen in follow-up for acute hypoxic resp failure Objective: The patient is appearing comfortable in NAD On Vent labs reviewed stable overnigth .Chest US moderate right pleural effusion VITALS: BP 139/72 Pulse 94 Temp 97.7 ??F (36.5 ??C) (Tympanic) Resp 21 Ht 6' (1.829 m) Wt208 lb 8 oz (94.6 kg) SpO2 97% BMI 28.28 kg/m?? I&O: Intake/Output Summary (Last 24 hours) at 08/02/2023 0900 Last data filed at 08/02/2023 0700 Gross per 24 hour Intake 2730.92 ml Output 3550 ml Net -819.08 ml Body mass index is 28.28 kg/m??. Exam: General appearance: in no obvious distress. HEENT: Normocephalic, atraumatic, moist mucous membranes, eyes with anicteric sclera, corneas clear. Extraocular Movements intact. Pupils reactive to light and accomodation. No sinus tenderness.External inspection of ears and nose shows no lesion or scars.intubated Neck: supple, symmetrical, trachea midline, no lymphadenopathy, thyroid: not enlarged, symmetric, no tenderness.. Thorax: the contour of the thorax is normal Lungs: no acute distress, normal percussion bilaterally. Clear breath sounds are auscultated bilaterally. No wheezes, crackles, rhonchi, or rubs were heard. There is no observed use of accessory muscles of breathing. Heart: regular rate and rhythm, S1, S2 normal, no murmur, click, rub or gallop, nondisplaced PMI. Abdomen: soft, non-tender, non-distended. There is no enlargement of the liver and spleen to palpation. Extremities: no cyanosis or clubbing. There is no edema of the lower extremities. Skin: warm, dry with no rash. Psych: the patient was , alert and oriented x3. Normal mood and effect. Ventilator Settings: Last Ventilator settings: Vent Mode: A/C FIO2 (%): 35 % SpO2: 97 % Set Vt (ml): 450 ml Resp Rate (Set): 20 PEEP/CPAP (cm H2O): 5 cm H20 Pressure Support (cm H2O): 10 cm H2O Current Facility-Administered Medications Medication Dose Route Frequency Provider Last Rate Last Admin ??? cefTRIAXone (ROCEPHIN) injection 2 g 2 g Intravenous Q24H Archie Hilario MD 2 g at 08/01/23 0838 ??? cloZAPine (CLOZARIL) tablet 100 mg 100 mg Oral Daily Adriana Shine MD 100 mg at 08/01/23 0838 ??? ipratropium-albuterol (DUO-NEB) 0.5-2.5 (3) MG/3ML nebulizer solution 3 mL 3 mL Nebulization Q4H Archie Hilario MD 3 mL at 08/02/23 0730 ??? lansoprazole (PREVACID SOLUTAB) disintegrating tablet 30 mg 30 mg Oral Daily Uri Ny MD 30 mg at 08/01/23 0838 ??? LORazepam (ATIVAN) tablet 1 mg 1 mg Oral Q6H PRN Uri Ny MD 1 mg at 07/30/23 0932 ??? magnesium hydroxide (MILK OF MAGNESIA) 400 MG/5ML suspension 30 mL 30 mL Oral Daily PRN Archie Hilario MD ??? methylPREDNISolone Na Suc (PF) (Solu-MEDROL) injection 40 mg 40 mg Intravenous Q12H Archie Hilario MD 40 mg at 08/01/23 2100 ??? metoprolol tartrate (LOPRESSOR) tablet 25 mg 25 mg Oral BID Archie Hilario MD 25 mg at 08/01/232020 ??? midazolam (VERSED) 1 mg/mL premix IV 0-15 mg/hr Intravenous Continuous Archie Hilario MD 10 mL/hr at 08/02/23443 10 mg/hr at 08/02/23 044 ??? midazolam (VERSED) injection 2-4 mg 2-4 mg Intravenous Q5 Min PRN Archie Hilario MD ??? midazolam (VERSED) injection 2-4 mg 2-4 mg Intravenous Q1H PRN Archie Hilario MD 4 mg at 08/01/23 0220 ??? polyethylene glycol (GLYCOLAX, MIRALAX) packet 17 g 17 g Oral BID PRN Archie Hilario MD ??? senna (SENOKOT) tablet 8.6 mg 1 Tablet Oral BID PRN Archie Hilario MD 8.6 mg at 07/31/232042 ??? sertraline (ZOLOFT) tablet 50 mg 50 mg Oral Daily Adriana Shine MD 50 mg at 08/01/23 0838 ??? Vancomycin HCl in NaCl 1.5-0.9 GM/250ML-% premix 1,500 mg 1,500 mg Intravenous Q12H Uri Ny MD Stopped at 08/01/234 Data Review ABGs: Lab Results Component Value Date PHARTERIAL 7.43 07/30/2023 PO2ART 76 07/30/2023 [id number] 34 (L) 07/30/2023 O2ART 92 (L) 07/30/2023 CBC: Lab Results Component Value Date WBC 15.28 (H) 08/02/2023 RBC 3.76 (L) 08/02/2023 HEMOGLOBIN 11.3 (L) 08/02/2023 HEMATOCRIT 35.1 (L) 08/02/2023 PLATELETCNT 135 (L) 08/02/2023 BMP: Lab Results Component Value Date GLUCOSE 146 (H) 08/02/2023 SODIUM 138 08/02/2023 POTASSIUM 4.9 08/02/2023 CHLORIDE 108 (H) 08/02/2023 BUN 25 08/02/2023 CREATININE 0.71 08/02/2023 CALCIUM 8.6 (L) 08/02/2023 No results found for: MAGNESIUM No results found for: PHOSPHORUS Coagulation: No results found for: PT , INR , APTT Results for orders placed or performed during the hospital encounter of 07/28/23 Blood Culture #2 Specimen: Blood; Culture Result Value Ref Range Status CULTURE RESULTS NO GROWTH WITHIN 5 DAYS, FINAL RESULT Final Blood Culture #1 Specimen: Blood; Culture Result Value Ref Range Status CULTURE RESULTS NO GROWTH WITHIN 5 DAYS, FINAL RESULT Final Radiology: XR CHEST SINGLE VIEW PORTABLE Result Date: 08/01/2023 IMPRESSION: Tubes and lines with stable abnormal chest as above. XR CHEST SINGLE VIEW PORTABLE Result Date: 07/30/2023 IMPRESSION: 1. Satisfactory position of the endotracheal and esophagogastric tubes. 2. Progressive bilateral lower lobe pneumonia. XR CHEST SINGLE VIEW PORTABLE Result Date: 07/30/2023 IMPRESSION: Continued worsening of bilateral airspace opacities worrisome for pneumonia. Small metallic foreign bodies at the midline and right-sided chest which are located posteriorly and superficially on CT of the chest. CT ANGIO CHEST W/WO CONTRAST WITH PP (POST PROCESSING) Result Date: 07/29/2023 IMPRESSION: 1. No PE. 2. Lung findings unchanged. CT CHEST W/O CONTRAST Result Date: 07/29/2023 IMPRESSION: 1. Examination is degraded by respiratory motion. There are small bilateral pleural effusions and bilateral pulmonary opacities, consistent with pneumonia. 2. Mildly enlarged precarinal lymph node which may be reactive. 3. Coronary artery disease 4. Small hiatal hernia XR CHEST SINGLE VIEW PORTABLE Result Date: 07/28/2023 IMPRESSION: Persistent though slightly improved interstitial and airspace infiltrates. XR CHEST SINGLE VIEW PORTABLE Result Date: 07/28/2023 IMPRESSION: Patchy bilateral lower lungs airspace opacities superimposed on diffusely coarsened interstitial markings; no pleural effusion. Patient Active Problem List Diagnosis ??? GERD without esophagitis ??? Mixed hyperlipidemia ??? Essential hypertension, benign ??? Chronic undifferentiated schizophrenia (HCC) ??? Thrombocytopenia (HCC) ??? Anemia ??? Need for hepatitis C screening test ??? Acute respiratory failure with hypoxia (HCC) ??? RSV infection No results found for this or any previous visit. Assessment: Acute hypoxemic respiratory failure due to RSV infection Plan CPAP trials Nebulizers Aspiration precautions Continue current antibiotics Droplet precautions ?? Atrial fibrillation Plan Continue beta-blockers per Cardiology ?? Anxiety/depression Plan Continue anxiolytics ?? Left pleural effusion Plan Chest ultrasound ?? Total of 35 minutes of critical time was spent in direct patient care including review of medical records labs Radiology reports examined the patient formulating treatment plan and discussing the treatment plan with the patient care team and my documentation time Documentation for this visit on 08/02 was completed using a template. I have seen and examined the patient. Everything documented was personally performed at this visit with the necessary additions, deletions and changes made as appropriate. Allan Concepcion MD 08/02/2023, 9:00 AM MATERIALS SUPERVISOR RIALS SUPERVISOR * Archie Hilario MD - 08/02/2023 7:22 AM CST INPATIENT PROGRESS NOTE - City Letter Carrier Iván Serrato Marva is a 77 y.o. male at Hospital Day (LOS: 4 days) This patient has been followed by Critical Care because of: Respiratory failure RSV and bacterial MRSA pneumonia altered mental status. Subjective: Awakes. Objective: Temp Av.8 ??F (36.6 ??C) Min: 97.2 ??F (36.2 ??C) Max: 98.2 ??F (36.8 ??C) BP Min: 125/60 Max: 160/82 Heart Rate (Monitor) Av.6 Min: 78 Max: 111 Resp Av.6 Min: 13 Max: 25 SpO2 Av.5 % Min: 90 % Max: 99 % O2 Flow Rate (l/min): 20 l/min I/O last 3 completed shifts: In: 2417.4 [I.V.:276.4; NG/GT:1641; IV Piggyback:500] Out: 4275 [Urine:4275] Stool Occurrence: 0 (07/30/232151) Stool Amount: Small (07/29/232199) Weights: Wt Readings from Last 3 Encounters: 07/28/23 208 lb 8 oz (94.6 kg) 07/26/23 202 lb 11.2 oz (91.9 kg) 06/20/23 206 lb (93.4 kg) PHYSICAL EXAM: Head within normal limits Neck supple Chest coarse Heart sounds regular Abdomen soft Good peripheral perfusion Oxygen 30% fraction Sedated awakes Versed infusion Active Scheduled and PRN meds cefTRIAXone (ROCEPHIN) IV/IM, 2 g, Q24H cloZAPine, 100 mg, Daily ipratropium-albuterol, 3 mL, Q4H lansoprazole, 30 mg, Daily methylPREDNIsolone, 40 mg, Q12H metoprolol tartrate, 25 mg, BID sertraline, 50 mg, Daily vancomycin, 1,500 mg, Q12H LORazepam, 1 mg, Q6H PRN magnesium hydroxide, 30 mL, Daily PRN midazolam, 2-4 mg, Q5 Min PRN midazolam, 2-4 mg, Q1H PRN polyethylene glycol, 17 g, BID PRN senna, 1 Tablet, BID PRN Lab Review Lab Results Component Value Date WBC 15.28 (H) 08/02/2023 HEMOGLOBIN 11.3 (L) 08/02/2023 HEMATOCRIT 35.1 (L) 08/02/2023 PLATELETCNT 135 (L) 08/02/2023 MCV 93.4 08/02/2023 Lab Results Component Value Date SODIUM 138 08/02/2023 POTASSIUM 4.9 08/02/2023 CHLORIDE 108 (H) 08/02/2023 CO2VEN 23 08/02/2023 GLUCOSE 146 (H) 08/02/2023 BUN 25 08/02/2023 CREATININE 0.71 08/02/2023 CALCIUM 8.6 (L) 08/02/2023 ALBUMIN 3.4 (L) 08/02/2023 Lab Results Component Value Date SODIUM 138 08/02/2023 POTASSIUM 4.9 08/02/2023 CHLORIDE 108 (H) 08/02/2023 CO2VEN 23 08/02/2023 GLUCOSE 146 (H) 08/02/2023 ANIONGAP 11.9 08/02/2023 BUN 25 08/02/2023 CREATININE 0.71 08/02/2023 CALCIUM 8.6 (L) 08/02/2023 Lab Results Component Value Date SODIUM 138 08/02/2023 POTASSIUM 4.9 08/02/2023 CHLORIDE 108 (H) 08/02/2023 CO2VEN 23 08/02/2023 ANIONGAP 11.9 08/02/2023 GLUCOSE 146 (H) 08/02/2023 BUN 25 08/02/2023 CREATININE 0.71 08/02/2023 BCRATIO8 35 (H) 08/02/2023 TOTALPROTEIN 6.3 08/02/2023 ALBUMIN 3.4 (L) 08/02/2023 AGRATIO 1.3 03/15/2023 CALCIUM 8.6 (L) 08/02/2023 TBIL 0.4 08/02/2023 SGOTAST 40 (H) 08/02/2023 SGPTALT 123 (H) 08/02/2023 ALKALINEPHO 64 08/02/2023 GFRNA >60 08/02/2023 GFRA >60 08/02/2023 No results found for: INR , PTP Lab Results Component Value Date PHARTERIAL 7.43 07/30/2023 PO2ART 76 07/30/2023 [id number] 34 (L) 07/30/2023 O2ART 92 (L) 07/30/2023 Radiology Results were Reviewed Labs/chart/meds reviewed. Assessment/Plan: 1. Neurologically: Continue low-dose Versed infusion antidepressants benzodiazepines for history ofbipolar disorder 2. Cardiovascular: Stable Lopressor for hypertension 3. Respiratory: Tolerating breathing trials continue steroids 4. GI: GI prophylaxis tube feeds 5. and renal: Stable 6. Endocrine: Glycemic control with insulin as continue steroids 7. Hematologically: Daily counts stable chronic thrombocytopenia 8. DVT prophylaxis: SCD and subQ heparin 9. Id: RSV pneumonia continue steroids completed Zithromax still on empiric ceftriaxone and vancomycin for MRSA pneumonia Also a total of 50 minutes of critical care time were delivered to the patient today excluding procedures. Voice recognition software was used to dictate this note. In spite of proofreading, typographical and/or content errors may have occurred. Archie Hilario MD 08/02/2023 7:23 AM MATERIALS SUPERVISOR RIALS SUPERVISOR * Ame Scanlon APRN, [facility] - 08/01/2023 4:51 PM CST Cardiology Progress Note: 08/01/23 Symptoms: Sedated, intubated. No new concerns. Rate and rhythm controlled. Vitals: 08/01/23 1430 08/01/23 1500 08/01/23 1515 08/01/23 1530 Temp: 98.1 ??F (36.7 ??C) TempSrc: Heart Rate (Monitor): 92 92 96 Pulse: Resp: 20 18 16 BP: 138/67 Height: Weight: SpO2: 97% 90% 97% I/O last 3 completed shifts: In: 3284.8 [I.V.:512.8; NG/GT:2021; IV Piggyback:750] Out: 2930 [Urine:2930] No intake/output data recorded. Exam: HEENT: No pallor or Icterus. Cardiac: PMI and JVP normal, S1 and S2 normal, no murmur, no gallop or rub Abdomen: Soft, nontender, BS active Lungs: Clear to auscultation. Respirations unlabored Extremities: No clubbing, cyanosis. No edema. Pedal pulses 2+ Neuro: intubated, sedated Medication: Current Facility-Administered Medications Medication Dose Route Frequency Provider Last Rate Last Admin ??? cefTRIAXone (ROCEPHIN) injection 2 g 2 g Intravenous Q24H Archie Hilario MD 2 g at 08/01/23 0838 ??? cloZAPine (CLOZARIL) tablet 100 mg 100 mg Oral Daily Adriana Shine MD 100 mg at 08/01/23 0838 ??? ipratropium-albuterol (DUO-NEB) 0.5-2.5 (3) MG/3ML nebulizer solution 3 mL 3 mL Nebulization Q4H Archie Hilario MD 3 mL at 08/01/23 1509 ??? lansoprazole (PREVACID SOLUTAB) disintegrating tablet 30 mg 30 mg Oral Daily Uri Ny MD 30 mg at 08/01/23 0838 ??? LORazepam (ATIVAN) tablet 1 mg 1 mg Oral Q6H PRN Uri Ny MD 1 mg at 07/30/23 0932 ??? magnesium hydroxide (MILK OF MAGNESIA) 400 MG/5ML suspension 30 mL 30 mL Oral Daily PRN Archie Hilario MD ??? methylPREDNISolone Na Suc (PF) (Solu-MEDROL) injection 40 mg 40 mg Intravenous Q12H Archie Hilario MD 40 mg at 08/01/23 0948 ??? metoprolol tartrate (LOPRESSOR) tablet 25 mg 25 mg Oral BID Archie Hilario MD 25 mg at 08/01/23 0838 ??? midazolam (VERSED) 1 mg/mL premix IV 0-15 mg/hr Intravenous Continuous Archie Hilario MD 7 mL/hr at 08/01/23 1210 7 mg/hr at 08/01/23 1210 ??? midazolam (VERSED) injection 2-4 mg 2-4 mg Intravenous Q5 Min PRN Archie Hilario MD ??? midazolam (VERSED) injection 2-4 mg 2-4 mg Intravenous Q1H PRN Archie Hilario MD 4 mg at 08/01/23 0220 ??? polyethylene glycol (GLYCOLAX, MIRALAX) packet 17 g 17 g Oral BID PRN Archie Hilario MD ??? senna (SENOKOT) tablet 8.6 mg 1 Tablet Oral BID PRN Archie Hilario MD 8.6 mg at 07/31/23 2043 ??? sertraline (ZOLOFT) tablet 50 mg 50 mg Oral Daily Adriana Shine MD 50 mg at 08/01/23 0838 ??? Vancomycin HCl in NaCl 1.5-0.9 GM/250ML-% premix 1,500 mg 1,500 mg Intravenous Q12H Uri Ny MD Stopped at 08/01/23 1118 Labs: No results found for: CPK , CPKI , CKMB , CKMBNI , CKMBPOCT , CKMBRELINDX , TROPONINI , POCTRP No results for input(s): BNP , BNPPOCT in the last 72 hours. Recent Labs Units 08/01/2345507/31/2343207/30/23 0410 SODIUM mmol/L 141 -- 135* POTASSIUM mmol/L 4.7 -- 4.2 CHLORIDE mmol/L 111* -- 108* CO2VEN mmol/L 22 -- 19* ANIONGAP mmol/L 12.7 -- 12.2 GLUCOSE mg/dL 158* -- 112* BUN mg/dL 25 -- 27* CREATININE mg/dL 0.69* 0.70 0.73 BCRATIO8 ratio 36* -- 37* TOTALPROTEIN g/dL 5.9* -- -- ALBUMIN g/dL 3.1* -- -- CALCIUM mg/dL 8.1* -- 8.1* TBIL mg/dL 0.4 -- -- SGOTAST U/L 31 -- -- SGPTALT U/L 106* -- -- ALKALINEPHO U/L 60 -- -- GFRNA >60 >60 >60 GFRA >60 >60 >60 Recent Labs Units 08/01/2345507/31/2343207/30/23 0410 WBC 10(3)/mcL 13.28* 11.32 17.90* HEMOGLOBIN g/dL 10.5* 10.5* 10.7* HEMATOCRIT % 33.1* 32.4* 33.6* PLATELETCNT 10(3)/mcL 80* 59* 51* MCV fL 95.1 94.7 96.0 No results found for: MAGNESIUM Lab Results Component Value Date DDIMER 1.71 (H) 07/29/2023 No results for input(s): CHOLESTEROL , TRIGLYCRIDES , HDLCHOLESTE , LDL in the last 72 hours. No results for input(s): INR , PTP in the last 72 hours. Test: Results for orders placed or performed during the hospital encounter of 07/28/23 ADULT TRANS THORACIC ECHO 2D COMPLETE Collection Time: 07/28/23 7:16 PM Result Value AV Peak Grad mmHg 4.41 Mean Aortic Valve Gradient (MAVG) 2 LV end mariel diam cm 5.01 LV end sys diam cm 3.69 Aortic Root Diam cm 3.1 LA vol index ml/m2 25 LVOT Peak Ranjith m/sec 0.68 AV Peak Ranjith m/sec 1.05 MVA by PHT cm2 3.67 TR Ranjith m/sec 2.29 E/E' 11.8 AV Area (VTI) cm2 2.08 SEPTUM DIASTOLIC CM 0.84 PW DIASTOLIC CM 1.04 LA VOLUME 53.3 Narrative Transthoracic Echocardiography Report (TTE) Patient name MARVA Serrato Valerio 1945 Patient ID (UPI) [id number] Study Date07/28/2023 Technical quality: Adequate Limitation Reason: Lung artifact Type of Study: TTE procedure: Adult Trans Thoracic Echo 2D Complete. Priority:STATHR: 105 bpmBP: 128/73 mmHg Conclusions Summary Concentric LV remodelling. Low normal LV systolic function, LVEF estimated 50%. Indeterminate diastolic function due to atrial fibrillation. Mildly dilated RV with mildly reduced systolic function. No significant valvular abnormalities. Inadequate TR jet to estimate PASP. Biatrial enlargement. Dilated IVC with respiratory variation. Normal visualized portion of aorta. Findings Mitral Valve The mitral valve is normal. There is no evidence of mitral stenosis. There is no significant mitral regurgitation. Aortic Valve The aortic valve is trileaflet with normal structure. There is no evidence of aortic valve stenosis. There is no significant aortic valve insufficiency. Tricuspid Valve The tricuspid valve is normal. There is no evidence of tricuspid stenosis. There is no significant tricuspid regurgitation. There is no evidence of pulmonary hypertension. Pulmonic Valve The pulmonic valve structure appears normal. There is no evidence of pulmonic stenosis. There is no significant pulmonic valve regurgitation. Left Atrium Mild LA enlargement Left Ventricle Concentric LV remodelling. Low normal LV systolic function, LVEF estimated 50%. indeterminate diastolic function due to rhythm. Right Atrium Mild RA enlargement Right Ventricle Mildly dilated right ventricle with mildly reduced systolic function Miscellaneous IVC dilated with normal respiratory variation. Aortic root and proximal ascending aorta are normal in size. Valves Mitral Valve Area (PHT): 3.67 cm^2 Peak E-Wave: 1.07 m/s Deceleration Time: 205 msec Peak Gradient: 4.58 mmHg P1/2t: 60 msec Tissue Doppler E' Velocity: 0.08 m/s E/E':11.8 E/Lat E': 11.8 E/Med E':12.9 Aortic Valve Area (continuity): 2.08 cm^2 Mean Velocity: 0.72 m/s Area (VTI):2.08 cm^2 Mean Gradient: 2 mmHg Peak Velocity: 1.05 m/s AV VTI: 18 cm Peak Gradient: 4.41 mmHg Cusp Separation: 2.2 cm Tricuspid Valve Peak E-Wave: 0.57 m/s Peak Gradient: 1.32 mmHg TR Velocity: 2.29 m/s TR Gradient: 20.98 mmHg Pulmonic Valve Peak Velocity: 0.78 m/s Peak Gradient: 2.46 mmHg LVOT Peak Velocity: 0.68 m/s Mean Velocity: 0.43 m/s Peak Gradient: 2 mmHg Mean Gradient: 1 mmHg LVOT Diameter: 2 cm LVOT VTI: 11.9 cm Stroke Volume: 37 ml Stroke Volume Index: 17.05 ml/m^2 Structures Left Ventricle Diastolic Dimension: 5.01 cm Systolic Dimension: 3.69 cm Septum Diastolic: 0.84 cm Septum Systolic: 1.2 cm PW Diastolic: 1.04 cm PW Systolic: 1.09 cm Diastolic Length: 24.6 cm Systolic Length: 13.7 cm EF Calculated: 49.33% CI: 1.81 l/min*m^2 CO: 3.92 l/min RWT: 0.42 LV EDV: 74.8 ml FS: 26.35 % LV EDV Index: 34 m^2 LV Length: 7.3 cm LV ESV: 37.9 ml LVOT Diameter: 2 cm LV ESV Index: 17 m^2 Left Atrium LA Dimension: 4.4 cm LA Area: 22 cm^2 LA/Aorta: 1.42 LA Volume: 53.3 ml LA Systolic Pressure: 16.81 mmHg LA Index: 25ml/m^2 Right Atrium RA Area: 19 cm^2 Great Vessels Aorta Aorta Root:3.1 cm Contractility Score LV regional wall motion: (0-Not visualized 1-Normal 1'-Hyperkinesis 2-Hypokinesis 3-Akinesis 4-Dyskinesis 5-Aneurysm) Billing ICD 9 Codes 1) 148.9-Atrial Fibrillation/ Atrial Flutter. Demographics Age 77 Gender Male Race Height 72.01 in. Weight 208.5 lbs. BMI (BSA) 28.27 kg/m^2 (2.17 m^2) Plant Reliability Engineer Vipul Serrato Room 2 Interpreting Renae Referring YOVANY VILLAGOMEZ Physician Barbara Physician *Note: Due to a large number of results and/or encounters for the requested time period, some results have not been displayed. A complete set of results can be found in Results Review. @[email or web address]@ [facility] Impressions/Assessment: A-fib with RVR Respiratory Failure Thrombocytopenia Plan: -rate and rhythm controlled, c/w metoprolol -anticoagulation has been held d/t thrombocytopenia. Plts now up to 80. -from a cardiology perspective may resume anticoagulation if patient not bleed or platelet count remains > 50 (now 80) -may consider evaluation/recs from hematology platelet count worsens By: Ame Scanlon APRN, SQL SERVER BI DEVELOPER; 08/01/2023, 4:51 PM MATERIALS SUPERVISOR RIALS SUPERVISOR * Uri Ny MD - 08/01/2023 8:44 AM CST [facility] INPATIENT DAILY PROGRESS NOTE Iván Dumont is a 77 y.o. male at Hospital LOS: 4 days Assessment: Active Hospital Problems Diagnosis Date Noted ??? Acute respiratory failure with hypoxia (HCC) 07/28/2023 ??? RSV infection 07/28/2023 ??? Anemia ??? Thrombocytopenia (HCC) 02/02/2023 ??? Essential hypertension, benign 07/17/2020 Resolved Hospital Problems No resolved problems to display. Vitals: 08/01/23 0700 08/01/23 0715 08/01/23 0730 08/01/23 0745 Temp: 97.8 ??F (36.6 ??C) TempSrc: Heart Rate (Monitor): 95 89 99 99 Pulse: Resp: 15 13 18 15 BP: Height: Weight: SpO2: 96% 97% 98% 97% O2 Flow Rate (l/min): 20 l/min O2 Device: Ventilator Body mass index is 28.28 kg/m??. I/O last 3 completed shifts: In: 3284.8 [I.V.:512.8; NG/GT:2021; IV Piggyback:750] Out: 2930 [Urine:2930] Plan: Plan Assessment & Plan: 1. Sepsis: Patient on admission met criteria for sepsis with tachycardia [place]ach[place], [place] [address], trending down 15,000 -[id number] this morning. Patient also had elevated lactic acid, most likely source RSV pneumonia. 2. Acute respiratory failure with hypoxia: Currently intubated sedated Secondary to RSV pneumonia, continue supportive treatment, patient currently on high-flow oxygen, ABG showed PO2 of 70. Pulmonology consult, trap setter consult requested. 3. Hypertension: Patient blood pressure soft, hold antihypertensives. Blood pressure in 90s this morning. 4. Positive MRSA nares: Patient has been on vancomycin for possible MRSA pneumonia. Chest x-ray shows interstitial and a airspace infiltrate. CT of the chest ordered. 5. Anxiety and depression: Continue home medication Ativan p.r.n.. 6. Gastroesophageal reflux disease: Continue PPI. 7. Atrial fibrillation: Rate controlled, currently on beta-lilly continue the same. Cardiology following. 8. Disposition: Home with home health 9. VTE Prophylaxis: Lovenox 40mg Q24h 10. Code Status: Code Status: Full Code Discussed with trap setter, patient was intubated on 07/30/2023 Subjective: Interval History: No acute events overnight. Patient currently intubated and sedated. Intake/Output Summary (Last 24 hours) at 08/01/2023 0844 Last data filed at 08/01/2023 0512 Gross per 24 hour Intake 2142.5 ml Output 1655 ml Net 487.5 ml Inpatient Scheduled Medications: cefTRIAXone (ROCEPHIN) IV/IM, 2 g, Q24H cloZAPine, 100 mg, Daily ipratropium-albuterol, 3 mL, Q4H lansoprazole, 30 mg, Daily methylPREDNIsolone, 40 mg, Q12H metoprolol tartrate, 25 mg, BID sertraline, 50 mg, Daily vancomycin, 1,500 mg, Q12H Inpatient PRN Medications: LORazepam, 1 mg, Q6H PRN magnesium hydroxide, 30 mL, Daily PRN midazolam, 2-4 mg, Q5 Min PRN midazolam, 2-4 mg, Q1H PRN polyethylene glycol, 17 g, BID PRN senna, 1 Tablet, BID PRN Inpatient IV Infusions: midazolam (VERSED) infusion, Last Rate: 15 mg/hr (08/01/23 0807) Objective: Exam: General: Sedated moderately built and nourished, moderate distress Skin: Normal skin turgor, no rashes Head: Normocephalic, without obvious abnormality HEENT: PERRLA, sclera anicteric Neck: normal, supple, no thyromegaly Heart: Tachycardic, irregularly irregular rhythm, S1, S2 normal, no murmur, click, rub or gallop Lungs: Bilateral diffuse crackles, expiratory wheezes Abdominal: soft, distended,; bowel sounds normal; no masses, no organomegaly Extremities: normal strength, tone, and muscle mass Neuro: Intubated and sedated Last Ventilator settings: Vent Mode: Assist control FIO2 (%): 35 % SpO2: 97 % Set Vt (ml): 450 ml Resp Rate (Set): 20 PEEP/CPAP (cm H2O): 5 cm H20 Lab Results: Lab Results Component Value Date PHARTERIAL 7.43 07/30/2023 PO2ART 76 07/30/2023 [id number] 34 (L) 07/30/2023 O2ART 92 (L) 07/30/2023 No results for input(s): BNP , BNPPOCT in the last 72 hours. Recent Labs Units 08/01/23 0456 07/31/23 0433 07/30/23 0410 WBC 10(3)/mcL 13.28* 11.32 17.90* HEMOGLOBIN g/dL 10.5* 10.5* 10.7* HEMATOCRIT % 33.1* 32.4* 33.6* PLATELETCNT 10(3)/mcL 80* 59* 51* MCV fL 95.1 94.7 96.0 No results for input(s): INR , PTP in the last 72 hours. Recent Labs Units 08/01/23 0456 07/31/23 0433 07/30/23 0410 SODIUM mmol/L 141 -- 135* POTASSIUM mmol/L 4.7 -- 4.2 CHLORIDE mmol/L 111* -- 108* CO2VEN mmol/L 22 -- 19* ANIONGAP mmol/L 12.7 -- 12.2 GLUCOSE mg/dL 158* -- 112* BUN mg/dL 25 -- 27* CREATININE mg/dL 0.69* 0.70 0.73 BCRATIO8 ratio 36* -- 37* TOTALPROTEIN g/dL 5.9* -- -- ALBUMIN g/dL 3.1* -- -- CALCIUM mg/dL 8.1* -- 8.1* TBIL mg/dL 0.4 -- -- SGOTAST U/L 31 -- -- SGPTALT U/L 106* -- -- ALKALINEPHO U/L 60 -- -- GFRNA >60 >60 >60 GFRA >60 >60 >60 No results found for: CPK , CPKI , CKMB , CKMBNI , CKMBPOCT , CKMBRELINDX , TROPONINI , POCTRP No results found for: FOLATE No results found for: MAGNESIUM Lab Results Component Value Date LACTICA 1.4 07/29/2023 Lab Results Component Value Date [id number] 486 03/15/2023 Lab Results Component Value Date FERRITIN 23 04/24/2023 Lab Results Component Value Date GLUCOSEPOCT 193 (H) 07/31/2023 Lab Results Component Value Date DDIMER 1.71 (H) 07/29/2023 EKG: No results found. Imaging: No results found. Total amount of critical care time spent in patient care 40 minutes. By: Uri Ny MD, 08/01/2023 8:44 AM MATERIALS SUPERVISOR RIALS SUPERVISOR * Archie Hilario MD - 08/01/2023 6:05 AM CST INPATIENT PROGRESS NOTE - City Letter Carrier Iván Dumont is a 77 y.o. male at Hospital Day (LOS: 3 days) This patient has been followed by Critical Care because of: Respiratory failure RSV and bacterial MRSA pneumonia altered mental status. Subjective: Sedated. Objective: Temp Av.4 ??F (36.3 ??C) Min: 96.8 ??F (36 ??C) Max: 98.6 ??F (37 ??C) BP Min: 116/71 Max: 148/72 Pulse Av.5 Min: 77 Max: 94 Heart Rate (Monitor) Av.3 Min: 74 Max: 113 Resp Av.5 Min: 15 Max: 27 SpO2 Av.3 % Min: 94 % Max: 100 % O2 Flow Rate (l/min): 20 l/min I/O last 3 completed shifts: In: 2404.8 [I.V.:370.8; NG/GT:1284; IV Piggyback:750] Out: 2805 [Urine:2805] Stool Occurrence: 0 (07/30/232151) Stool Amount: Small (07/29/23 2200) Weights: Wt Readings from Last 3 Encounters: 07/28/23 208 lb 8 oz (94.6 kg) 07/26/23 202 lb 11.2 oz (91.9 kg) 06/20/23 206 lb (93.4 kg) PHYSICAL EXAM: Head within normal limits Neck supple Chest coarse Heart sounds regular Abdomen soft Good peripheral perfusion Sedated nonfocal Versed infusion Oxygen 30% fraction Active Scheduled and PRN meds cefTRIAXone (ROCEPHIN) IV/IM, 2 g, Q24H cloZAPine, 100 mg, Daily ipratropium-albuterol, 3 mL, Q4H lansoprazole, 30 mg, Daily methylPREDNIsolone, 40 mg, Q12H metoprolol tartrate, 25 mg, BID sertraline, 50 mg, Daily vancomycin, 1,500 mg, Q12H LORazepam, 1 mg, Q6H PRN magnesium hydroxide, 30 mL, Daily PRN midazolam, 2-4 mg, Q5 Min PRN midazolam, 2-4 mg, Q1H PRN polyethylene glycol, 17 g, BID PRN senna, 1 Tablet, BID PRN Lab Review Lab Results Component Value Date WBC 13.28 (H) 08/01/2023 HEMOGLOBIN 10.5 (L) 08/01/2023 HEMATOCRIT 33.1 (L) 08/01/2023 PLATELETCNT 80 (L) 08/01/2023 MCV 95.1 08/01/2023 Lab Results Component Value Date SODIUM 141 08/01/2023 POTASSIUM 4.7 08/01/2023 CHLORIDE 111 (H) 08/01/2023 CO2VEN 22 08/01/2023 GLUCOSE 158 (H) 08/01/2023 BUN 25 08/01/2023 CREATININE 0.69 (L) 08/01/2023 CALCIUM 8.1 (L) 08/01/2023 ALBUMIN 3.1 (L) 08/01/2023 Lab Results Component Value Date SODIUM 141 08/01/2023 POTASSIUM 4.7 08/01/2023 CHLORIDE 111 (H) 08/01/2023 CO2VEN 22 08/01/2023 GLUCOSE 158 (H) 08/01/2023 ANIONGAP 12.7 08/01/2023 BUN 25 08/01/2023 CREATININE 0.69 (L) 08/01/2023 CALCIUM 8.1 (L) 08/01/2023 Lab Results Component Value Date SODIUM 141 08/01/2023 POTASSIUM 4.7 08/01/2023 CHLORIDE 111 (H) 08/01/2023 CO2VEN 22 08/01/2023 ANIONGAP 12.7 08/01/2023 GLUCOSE 158 (H) 08/01/2023 BUN 25 08/01/2023 CREATININE 0.69 (L) 08/01/2023 BCRATIO8 36 (H) 08/01/2023 TOTALPROTEIN 5.9 (L) 08/01/2023 ALBUMIN 3.1 (L) 08/01/2023 AGRATIO 1.3 03/15/2023 CALCIUM 8.1 (L) 08/01/2023 TBIL 0.4 08/01/2023 SGOTAST 31 08/01/2023 SGPTALT 106 (H) 08/01/2023 ALKALINEPHO 60 08/01/2023 GFRNA >60 08/01/2023 GFRA >60 08/01/2023 No results found for: INR , PTP Lab Results Component Value Date PHARTERIAL 7.43 07/30/2023 PO2ART 76 07/30/2023 [id number] 34 (L) 07/30/2023 O2ART 92 (L) 07/30/2023 Radiology Results were Reviewed Labs/chart/meds reviewed. Assessment/Plan: 1. Neurologically: Continue Versed infusion antidepressants benzodiazepines history of bipolar disorder 2. Cardiovascular: Stable continue Lopressor for hypertension 3. Respiratory: Start breathing trials oxygen 30% on steroids 4. GI: GI prophylaxis tube feeds 5. and renal: Stable 6. Endocrine: Glycemic control with insulin as needed continue steroids 7. Hematologically: Daily counts chronic thrombocytopenia 8. DVT prophylaxis: SCD and subQ heparin 9. Id: RSV pneumonia continue steroids completed Zithromax on empiric ceftriaxone also vancomycin for MRSA Also a total of 50 minutes of critical care time were delivered to the patient today excluding procedures. Voice recognition software was used to dictate this note. In spite of proofreading, typographical and/or content errors may have occurred. Archie Hilario MD 08/01/2023 6:05 AM MATERIALS SUPERVISOR RIALS SUPERVISOR * Uri yN MD - 07/31/2023 10:10 AM CST [facility] DAILY PROGRESS NOTE Iván Dumont is a 77 y.o. male at Hospital LOS: 3 days Assessment: Active Hospital Problems Diagnosis Date Noted ??? Acute respiratory failure with hypoxia (HCC) 07/28/2023 ??? RSV infection 07/28/2023 ??? Anemia ??? Thrombocytopenia (HCC) 02/02/2023 ??? Essential hypertension, benign 07/17/2020 Resolved Hospital Problems No resolved problems to display. Vitals: 07/31/23 0500 07/31/23 0600 07/31/23 0715 07/31/23 0746 Temp: 98.6 ??F (37 ??C) TempSrc: Heart Rate (Monitor): 100 84 95 Pulse: Resp: 21 20 BP: 117/70 117/71 Height: Weight: SpO2: 97% 96% 98% 98% O2 Flow Rate (l/min): 20 l/min O2 Device: Ventilator Body mass index is 28.28 kg/m??. I/O last 3 completed shifts: In: 1410.8 [I.V.:240.8; NG/GT:670; IV Piggyback:500] Out: 2675 [Urine:2675] Plan: Plan Assessment & Plan: 1. Sepsis: Patient on admission met criteria for sepsis with tachycardia tach[place], [place] [address], trending down 15,000 this morning. Patient also had elevated lactic acid, most likely source RSV pneumonia. 2. Acute respiratory failure with hypoxia: Currently intubated sedated Secondary to RSV pneumonia, continue supportive treatment, patient currently on high-flow oxygen, ABG showed PO2 of 70. Pulmonology consult, trap setter consult requested. 3. Hypertension: Patient blood pressure soft, hold antihypertensives. Blood pressure in 90s this morning. 4. Positive MRSA nares: Patient has been on vancomycin for possible MRSA pneumonia. Chest x-ray shows interstitial and a airspace infiltrate. CT of the chest ordered. 5. Anxiety and depression: Continue home medication Ativan p.r.n.. 6. Gastroesophageal reflux disease: Continue PPI. 7. Atrial fibrillation: Rate controlled, currently on beta-lilly continue the same. Cardiology following. 8. Disposition: Home with home health 9. VTE Prophylaxis: Lovenox 40mg Q24h 10. Code Status: Code Status: Full Code Discussed with trap setter, patient was intubated on 07/30/2023 Subjective: Interval History: No acute events overnight. Patient currently intubated and sedated. Intake/Output Summary (Last 24 hours) at 07/31/2023 1010 Last data filed at 07/31/2023 0500 Gross per 24 hour Intake 1142.32 ml Output 1275 ml Net -132.68 ml Inpatient Scheduled Medications: cefTRIAXone (ROCEPHIN) IV/IM, 2 g, Q24H cloZAPine, 100 mg, Daily ipratropium-albuterol, 3 mL, Q4H methylPREDNIsolone, 40 mg, Q6H metoprolol tartrate, 5 mg, Q6H pantoprazole, 40 mg, QAM AC sertraline, 50 mg, Daily vancomycin, 1,500 mg, Q12H Inpatient PRN Medications: LORazepam, 1 mg, Q6H PRN magnesium hydroxide, 30 mL, Daily PRN midazolam, 2-4 mg, Q5 Min PRN midazolam, 2-4 mg, Q1H PRN polyethylene glycol, 17 g, BID PRN senna, 1 Tablet, BID PRN Inpatient IV Infusions: midazolam (VERSED) infusion, Last Rate: 10 mg/hr (07/31/23 0838) Objective: Exam: General: Sedated moderately built and nourished, moderate distress Skin: Normal skin turgor, no rashes Head: Normocephalic, without obvious abnormality HEENT: PERRLA, sclera anicteric Neck: normal, supple, no thyromegaly Heart: Tachycardic, irregularly irregular rhythm, S1, S2 normal, no murmur, click, rub or gallop Lungs: clear to auscultation bilaterally, no rhonchi or wheezes Abdominal: soft, non-tender; bowel sounds normal; no masses, no organomegaly Extremities: normal strength, tone, and muscle mass Neuro: Intubated and sedated Last Ventilator settings: Vent Mode: Assist control FIO2 (%): 35 % SpO2: 94 % Set Vt (ml): 450 ml Resp Rate (Set): 20 PEEP/CPAP (cm H2O): 6 cm H20 Lab Results: Lab Results Component Value Date PHARTERIAL 7.43 07/30/2023 PO2ART 76 07/30/2023 [id number] 34 (L) 07/30/2023 O2ART 92 (L) 07/30/2023 No results for input(s): BNP , BNPPOCT in the last 72 hours. Recent Labs Units 07/31/23 0433 07/30/23 0410 07/29/23 0514 WBC 10(3)/mcL 11.32 17.90* 15.96* HEMOGLOBIN g/dL 10.5* 10.7* 10.4* HEMATOCRIT % 32.4* 33.6* 32.7* PLATELETCNT 10(3)/mcL 59* 51* 42* MCV fL 94.7 96.0 94.8 No results for input(s): INR , PTP in the last 72 hours. Recent Labs Units 07/31/23 0433 07/30/23 0410 07/29/23 0514 SODIUM mmol/L -- 135* 137 POTASSIUM mmol/L -- 4.2 4.6 CHLORIDE mmol/L -- 108* 111* CO2VEN mmol/L -- 19* 19* ANIONGAP mmol/L -- 12.2 11.6 GLUCOSE mg/dL -- 112* 145* BUN mg/dL -- 27* 23 CREATININE mg/dL 0.70 0.73 0.77 BCRATIO8 ratio -- 37* 30* TOTALPROTEIN g/dL -- -- 6.2* ALBUMIN g/dL -- -- 3.2* CALCIUM mg/dL -- 8.1* 8.1* TBIL mg/dL -- -- 0.4 SGOTAST U/L -- -- 25 SGPTALT U/L -- -- 54 ALKALINEPHO U/L -- -- 57 GFRNA >60 >60 >60 GFRA >60 >60 >60 No results found for: CPK , CPKI , CKMB , CKMBNI , CKMBPOCT , CKMBRELINDX , TROPONINI , POCTRP No results found for: FOLATE No results found for: MAGNESIUM Lab Results Component Value Date LACTICA 1.4 07/29/2023 Lab Results Component Value Date [id number] 486 03/15/2023 Lab Results Component Value Date FERRITIN 23 04/24/2023 Lab Results Component Value Date GLUCOSEPOCT 193 (H) 07/31/2023 Lab Results Component Value Date DDIMER 1.71 (H) 07/29/2023 EKG: No results found. Imaging: XR CHEST SINGLE VIEW PORTABLE Result Date: 07/30/2023 IMPRESSION: 1. Satisfactory position of the endotracheal and esophagogastric tubes. 2. Progressive bilateral lower lobe pneumonia. Total amount of critical care time spent in patient care 40 minutes. By: Uri Ny MD, 07/31/2023 10:10 AM MATERIALS SUPERVISOR RIALS SUPERVISOR * Archie Hilario MD - 07/31/2023 6:12 AM CST INPATIENT PROGRESS NOTE - City Letter Carrier Iván Ama Dumont is a 77 y.o. male at Hospital Day (LOS: 2 days) This patient has been followed by Critical Care because of: Respiratory failure RSV and bacterial MRSA pneumonia altered mental status. Subjective: Sedated. Objective: Temp Av ??F (36.7 ??C) Min: 97.5 ??F (36.4 ??C) Max: 98.6 ??F (37 ??C) BP Min: 105/64 Max: 226/120 Pulse Av.7 Min: 86 Max: 94 Heart Rate (Monitor) Av.9 Min: 58 Max: 108 Resp Av.4 Min: 14 Max: 33 SpO2 Av.3 % Min: 86 % Max: 100 % O2 Flow Rate (l/min): 35 l/min I/O last 3 completed shifts: In: 2007.1 [P.O.:1700; I.V.:58.1; IV Piggyback:250] Out: 2049 [Urine:2049] Stool Occurrence: 0 (07/30/232151) Stool Amount: Small (07/29/232199) Weights: Wt Readings from Last 3 Encounters: 07/28/23 208 lb 8 oz (94.6 kg) 07/26/23 202 lb 11.2 oz (91.9 kg) 06/20/23 206 lb (93.4 kg) PHYSICAL EXAM: Head within normal limits Neck supple Chest coarse Heart sounds regular Abdomen soft Good peripheral perfusion Oxygen 40% fraction No vasopressors Versed infusion Active Scheduled and PRN meds cefTRIAXone (ROCEPHIN) IV/IM, 2 g, Q24H cloZAPine, 100 mg, Daily ipratropium-albuterol, 3 mL, Q4H methylPREDNIsolone, 40 mg, Q6H metoprolol tartrate, 5 mg, Q6H pantoprazole, 40 mg, QAM AC sertraline, 50 mg, Daily vancomycin, 1,500 mg, Q12H LORazepam, 1 mg, Q6H PRN magnesium hydroxide, 30 mL, Daily PRN midazolam, 2-4 mg, Q5 Min PRN midazolam, 2-4 mg, Q1H PRN polyethylene glycol, 17 g, BID PRN senna, 1 Tablet, BID PRN Lab Review Lab Results Component Value Date WBC 11.32 07/31/2023 HEMOGLOBIN 10.5 (L) 07/31/2023 HEMATOCRIT 32.4 (L) 07/31/2023 PLATELETCNT 59 (L) 07/31/2023 MCV 94.7 07/31/2023 Lab Results Component Value Date SODIUM 135 (L) 07/30/2023 POTASSIUM 4.2 07/30/2023 CHLORIDE 108 (H) 07/30/2023 CO2VEN 19 (L) 07/30/2023 GLUCOSE 112 (H) 07/30/2023 BUN 27 (H) 07/30/2023 CREATININE 0.70 07/31/2023 CALCIUM 8.1 (L) 07/30/2023 ALBUMIN 3.2 (L) 07/29/2023 Lab Results Component Value Date SODIUM 135 (L) 07/30/2023 POTASSIUM 4.2 07/30/2023 CHLORIDE 108 (H) 07/30/2023 CO2VEN 19 (L) 07/30/2023 GLUCOSE 112 (H) 07/30/2023 ANIONGAP 12.2 07/30/2023 BUN 27 (H) 07/30/2023 CREATININE 0.70 07/31/2023 CALCIUM 8.1 (L) 07/30/2023 Lab Results Component Value Date SODIUM 135 (L) 07/30/2023 POTASSIUM 4.2 07/30/2023 CHLORIDE 108 (H) 07/30/2023 CO2VEN 19 (L) 07/30/2023 ANIONGAP 12.2 07/30/2023 GLUCOSE 112 (H) 07/30/2023 BUN 27 (H) 07/30/2023 CREATININE 0.70 07/31/2023 BCRATIO8 37 (H) 07/30/2023 TOTALPROTEIN 6.2 (L) 07/29/2023 ALBUMIN 3.2 (L) 07/29/2023 AGRATIO 1.3 03/15/2023 CALCIUM 8.1 (L) 07/30/2023 TBIL 0.4 07/29/2023 SGOTAST 25 07/29/2023 SGPTALT 54 07/29/2023 ALKALINEPHO 57 07/29/2023 GFRNA >60 07/31/2023 GFRA >60 07/31/2023 No results found for: INR , PTP Lab Results Component Value Date PHARTERIAL 7.43 07/30/2023 PO2ART 76 07/30/2023 [id number] 34 (L) 07/30/2023 O2ART 92 (L) 07/30/2023 Radiology Results were Reviewed Labs/chart/meds reviewed. Assessment/Plan: 1. Neurologically: Continue Versed infusion history of bipolar disorder 2. Cardiovascular: Stable Lopressor for hypertension 3. Respiratory: Required ventilator support continue weaning the oxygen 4. GI: GI prophylaxis tube feeds 5. and renal: Stable 6. Endocrine: Glycemic control with insulin as needed 7. Hematologically: Thrombocytopenia observe 8. DVT prophylaxis: SCD hold subQ heparin 9. Id: RSV pneumonia continue steroids on empiric ceftriaxone Zithromax also vancomycin for MRSA pneumonia Also a total of 50 minutes of critical care time were delivered to the patient today excluding procedures. Voice recognition software was used to dictate this note. In spite of proofreading, typographical and/or content errors may have occurred. Archie Hilario MD 07/31/2023 6:12 AM MATERIALS SUPERVISOR RIALS SUPERVISOR * Uri Ny MD - 07/30/2023 2:31 PM CST [facility] DAILY PROGRESS NOTE Iván Dumont is a 77 y.o. male at Hospital LOS: 2 days Assessment: Active Hospital Problems Diagnosis Date Noted ??? Acute respiratory failure with hypoxia (HCC) 07/28/2023 ??? RSV infection 07/28/2023 ??? Anemia ??? Thrombocytopenia (HCC) 02/02/2023 ??? Essential hypertension, benign 07/17/2020 Resolved Hospital Problems No resolved problems to display. Vitals: 07/30/23 1330 07/30/23 1345 07/30/23 1400 07/30/23 1415 Temp: TempSrc: Heart Rate (Monitor): 87 88 94 91 Pulse: Resp: 18 23 22 22 BP: 120/71 112/72 116/61 113/63 Height: Weight: SpO2: 91% 93% 94% 97% O2 Flow Rate (l/min): 35 l/min O2 Device: Ventilator Body mass index is 28.28 kg/m??. I/O last 3 completed shifts: In: 1798.7 [P.O.:1700; I.V.:98.7] Out: 2625 [Urine:2625] Plan: Plan Assessment & Plan: 1. Sepsis: Patient on admission met criteria for sepsis with tachycardia [place], [place] [address], trending down 15,000 this morning. Patient also had elevated lactic acid, most likely source RSV pneumonia. 2. Acute respiratory failure with hypoxia: Secondary to RSV pneumonia, continue supportive treatment, patient currently on high-flow oxygen, ABG showed PO2 of 70. Pulmonology consult, trap setter consult requested. 3. Hypertension: Patient blood pressure soft, hold antihypertensives. Blood pressure in 90s this morning. 4. Positive MRSA nares: Patient has been on vancomycin for possible MRSA pneumonia. Chest x-ray shows interstitial and a airspace infiltrate. CT of the chest ordered. 5. Anxiety and depression: Continue home medication Ativan p.r.n.. 6. Gastroesophageal reflux disease: Continue PPI. 7. Atrial fibrillation: Rate controlled, currently on beta-lilly continue the same. Cardiology following. 8. Disposition: Home with home health 9. VTE Prophylaxis: Lovenox 40mg Q24h 10. Code Status: Code Status: Full Code Discussed with trap setter, plan for intubation today. Subjective: Interval History: No acute events overnight. Patient does not complain of any new symptoms. Feels better, able to tolerate diet well. Currently on supplementary oxygen high-flow 40 L. For intubation today. Review of Systems: A 14 point comprehensive review of systems was negative, except as documented in HPI. Intake/Output Summary (Last 24 hours) at 07/30/2023 1431 Last data filed at 07/30/2023 0700 Gross per 24 hour Intake 908.09 ml Output 1700 ml Net -791.91 ml Inpatient Scheduled Medications: cefTRIAXone (ROCEPHIN) IV/IM, 2 g, Q24H cloZAPine, 100 mg, Daily ipratropium-albuterol, 3 mL, Q4H methylPREDNIsolone, 40 mg, Q6H metoprolol tartrate, 5 mg, Q6H pantoprazole, 40 mg, QAM AC sertraline, 50 mg, Daily vancomycin, 1,500 mg, Q12H Inpatient PRN Medications: LORazepam, 1 mg, Q6H PRN magnesium hydroxide, 30 mL, Daily PRN midazolam, 2-4 mg, Q5 Min PRN midazolam, 2-4 mg, Q1H PRN polyethylene glycol, 17 g, BID PRN senna, 1 Tablet, BID PRN Inpatient IV Infusions: midazolam (VERSED) infusion, Last Rate: 9 mg/hr (07/30/23 1300) Objective: Exam: General: alert, moderately built and nourished, moderate distress Skin: Normal skin turgor, no rashes Head: Normocephalic, without obvious abnormality HEENT: PERRLA, sclera anicteric Neck: normal, supple, no thyromegaly Heart: Tachycardic, irregularly irregular rhythm, S1, S2 normal, no murmur, click, rub or gallop Lungs: clear to auscultation bilaterally, no rhonchi or wheezes Abdominal: soft, non-tender; bowel sounds normal; no masses, no organomegaly Extremities: normal strength, tone, and muscle mass Neuro: oriented x3, CN II-XII intact Psychological: anxious Lab Results: Lab Results Component Value Date PHARTERIAL 7.43 07/30/2023 PO2ART 76 07/30/2023 [id number] 34 (L) 07/30/2023 O2ART 92 (L) 07/30/2023 Recent Labs Units 07/28/23 0850 BNP pg/mL 1,066* Recent Labs Units 07/30/23 0410 07/29/23 0514 07/28/23 0850 WBC 10(3)/mcL 17.90* 15.96* 19.07* HEMOGLOBIN g/dL 10.7* 10.4* 10.7* HEMATOCRIT % 33.6* 32.7* 33.6* PLATELETCNT 10(3)/mcL 51* 42* 34* MCV fL 96.0 94.8 94.9 No results for input(s): INR , PTP in the last 72 hours. Recent Labs Units 07/30/23 0410 07/29/23 0514 07/28/23 0850 SODIUM mmol/L 135* 137 137 POTASSIUM mmol/L 4.2 4.6 3.9 CHLORIDE mmol/L 108* 111* 107 CO2VEN mmol/L 19* 19* 20* ANIONGAP mmol/L 12.2 11.6 13.9 GLUCOSE mg/dL 112* 145* 170* BUN mg/dL 27* 23 20 CREATININE mg/dL 0.73 0.77 0.97 BCRATIO8 ratio 37* 30* 21* TOTALPROTEIN g/dL -- 6.2* 6.5 ALBUMIN g/dL -- 3.2* 3.4* CALCIUM mg/dL 8.1* 8.1* 8.5* TBIL mg/dL -- 0.4 0.4 SGOTAST U/L -- 25 39* SGPTALT U/L -- 54 62* ALKALINEPHO U/L -- 57 63 GFRNA >60 >60 >60 GFRA >60 >60 >60 No results found for: CPK , CPKI , CKMB , CKMBNI , CKMBPOCT , CKMBRELINDX , TROPONINI , POCTRP No results found for: FOLATE No results found for: MAGNESIUM Lab Results Component Value Date LACTICA 1.4 07/29/2023 Lab Results Component Value Date [id number] 486 03/15/2023 Lab Results Component Value Date FERRITIN 23 04/24/2023 No results found for: GLUCOSEPOCT Lab Results Component Value Date DDIMER 1.71 (H) 07/29/2023 EKG: No results found. Imaging: XR CHEST SINGLE VIEW PORTABLE Result Date: 07/30/2023 IMPRESSION: 1. Satisfactory position of the endotracheal and esophagogastric tubes. 2. Progressive bilateral lower lobe pneumonia. XR CHEST SINGLE VIEW PORTABLE Result Date: 07/30/2023 IMPRESSION: Continued worsening of bilateral airspace opacities worrisome for pneumonia. Small metallic foreign bodies at the midline and right-sided chest which are located posteriorly and superficially on CT of the chest. Total amount of critical care time spent in patient care 40 minutes. By: Uri Ny MD, 07/30/2023 2:31 PM MATERIALS SUPERVISOR RIALS SUPERVISOR * Archie Hilario MD - 07/30/2023 6:14 AM CST INPATIENT PROGRESS NOTE - City Letter Carrier Iván Serrato Marva is a 77 y.o. male at Hospital Day (LOS: 1 day) This patient has been followed by Critical Care because of: Respiratory failure RSV and bacterial MRSA pneumonia altered mental status. Subjective: Awakes. Objective: Temp Av.9 ??F (36.1 ??C) Min: 96.5 ??F (35.8 ??C) Max: 97.2 ??F (36.2 ??C) BP Min: 91/53 Max: 136/81 Heart Rate (Monitor) Av.2 Min: 56 Max: 101 Resp Av.9 Min: 15 Max: 33 SpO2 Av.4 % Min: 90 % Max: 100 % O2 Flow Rate (l/min): 30 l/min I/O last 3 completed shifts: In: 3048.7 [P.O.:1700; I.V.:1098.7; IV Piggyback:250] Out: 1825 [Urine:1825] Stool Occurrence: 1 (07/29/232199) Stool Amount: Small (07/29/232199) Weights: Wt Readings from Last 3 Encounters: 07/28/23 208 lb 8 oz (94.6 kg) 07/26/23 202 lb 11.2 oz (91.9 kg) 06/20/23 206 lb (93.4 kg) PHYSICAL EXAM: Head within normal limits Neck supple Chest coarse Heart sounds regular Abdomen soft Malnutrition Awakes nonfocal Agitated reorients easily Precedex infusion Oxygen Airvo 70% Active Scheduled and PRN meds amLODIPine, 10 mg, Daily azithromycin, 500 mg, Daily cefTRIAXone (ROCEPHIN) IV/IM, 2 g, Q24H cloZAPine, 100 mg, Daily metoprolol succinate, 50 mg, Daily pantoprazole, 40 mg, QAM AC sertraline, 50 mg, Daily vancomycin, 1,250 mg, Q12H LORazepam, 1 mg, Q6H PRN Lab Review Lab Results Component Value Date WBC 17.90 (H) 07/30/2023 HEMOGLOBIN 10.7 (L) 07/30/2023 HEMATOCRIT 33.6 (L) 07/30/2023 PLATELETCNT 51 (L) 07/30/2023 MCV 96.0 07/30/2023 Lab Results Component Value Date SODIUM 135 (L) 07/30/2023 POTASSIUM 4.2 07/30/2023 CHLORIDE 108 (H) 07/30/2023 CO2VEN 19 (L) 07/30/2023 GLUCOSE 112 (H) 07/30/2023 BUN 27 (H) 07/30/2023 CREATININE 0.73 07/30/2023 CALCIUM 8.1 (L) 07/30/2023 ALBUMIN 3.2 (L) 07/29/2023 Lab Results Component Value Date SODIUM 135 (L) 07/30/2023 POTASSIUM 4.2 07/30/2023 CHLORIDE 108 (H) 07/30/2023 CO2VEN 19 (L) 07/30/2023 GLUCOSE 112 (H) 07/30/2023 ANIONGAP 12.2 07/30/2023 BUN 27 (H) 07/30/2023 CREATININE 0.73 07/30/2023 CALCIUM 8.1 (L) 07/30/2023 Lab Results Component Value Date SODIUM 135 (L) 07/30/2023 POTASSIUM 4.2 07/30/2023 CHLORIDE 108 (H) 07/30/2023 CO2VEN 19 (L) 07/30/2023 ANIONGAP 12.2 07/30/2023 GLUCOSE 112 (H) 07/30/2023 BUN 27 (H) 07/30/2023 CREATININE 0.73 07/30/2023 BCRATIO8 37 (H) 07/30/2023 TOTALPROTEIN 6.2 (L) 07/29/2023 ALBUMIN 3.2 (L) 07/29/2023 AGRATIO 1.3 03/15/2023 CALCIUM 8.1 (L) 07/30/2023 TBIL 0.4 07/29/2023 SGOTAST 25 07/29/2023 SGPTALT 54 07/29/2023 ALKALINEPHO 57 07/29/2023 GFRNA >60 07/30/2023 GFRA >60 07/30/2023 No results found for: INR , PTP Lab Results Component Value Date PHARTERIAL 7.39 07/28/2023 PO2ART 70 (L) 07/28/2023 [id number] 27 (L) 07/28/2023 O2ART 90 (L) 07/28/2023 Radiology Results were Reviewed Labs/chart/meds reviewed. Assessment/Plan: 1. Neurologically: Awake requiring Precedex infusion for agitation p.r.n. Ativan continue antidepressants history of bipolar disorder 2. Cardiovascular: Stable continue beta-blockers history of atrial fibrillation 3. Respiratory: RSV and MRSA pneumonia transitioned to nasal cannula from Airvo 4. GI: GI prophylaxis diet 5. and renal: Stable 6. Endocrine: Glycemia control with insulin 7. Hematologically: Stable thrombocytopenia hold heparin 8. DVT prophylaxis: Hold heparin continue SCD 9. Id: Continue empiric ceftriaxone Zithromax observe RSV pneumonia also vancomycin for MRSA pneumonia Also a total of 50 minutes of critical care time were delivered to the patient today excluding procedures. Voice recognition software was used to dictate this note. In spite of proofreading, typographical and/or content errors may have occurred. Archie Hilario MD 07/30/2023 6:15 AM MATERIALS SUPERVISOR RIALS SUPERVISOR * Uri Ny MD - 07/29/2023 8:44 AM CST [facility] DAILY PROGRESS NOTE Iván Dumont is a 77 y.o. male at Hospital LOS: 1 day Assessment: Active Hospital Problems Diagnosis Date Noted ??? Acute respiratory failure with hypoxia (HCC) 07/28/2023 ??? RSV infection 07/28/2023 ??? Anemia ??? Thrombocytopenia (HCC) 02/02/2023 ??? Essential hypertension, benign 07/17/2020 Resolved Hospital Problems No resolved problems to display. Vitals: 07/29/23 0700 07/29/23 0705 07/29/23 0747 07/29/23 0800 Temp: 96.8 ??F (36 ??C) TempSrc: Tympanic Heart Rate (Monitor): 73 79 67 Pulse: Resp: (!) 33 21 15 BP: 136/81 91/53 Height: Weight: SpO2: 97% 99% 100% 96% O2 Flow Rate (l/min): 40 l/min O2 Device: Heated high flow nasal cannula Body mass index is 28.28 kg/m??. I/O last 3 completed shifts: In: 1309.2 [I.V.:1059.2; IV Piggyback:250] Out: 1175 [Urine:1175] Plan: Plan Assessment & Plan: 1. Sepsis: Patient on admission met criteria for sepsis with tachycardia [place], [place] [address], trending down 15,000 this morning. Patient also had elevated lactic acid, most likely source RSV pneumonia. 2. Acute respiratory failure with hypoxia: Secondary to RSV pneumonia, continue supportive treatment, patient currently on high-flow oxygen, ABG showed PO2 of 70. Pulmonology consult, trap setter consult requested. 3. Hypertension: Patient blood pressure soft, hold antihypertensives. Blood pressure in 90s this morning. 4. Positive MRSA nares: Patient has been on vancomycin for possible MRSA pneumonia. Chest x-ray shows interstitial and a airspace infiltrate. CT of the chest ordered. 5. Anxiety and depression: Continue home medication Ativan p.r.n.. 6. Gastroesophageal reflux disease: Continue PPI. 7. Atrial fibrillation: Rate controlled, currently on beta-lilly continue the same. Cardiology following. 8. Disposition: Home with home health 9. VTE Prophylaxis: Lovenox 40mg Q24h 10. Code Status: Code Status: Full Code Subjective: Interval History: No acute events overnight. Patient does not complain of any new symptoms. Feels better, able to tolerate diet well. Currently on supplementary oxygen high-flow 40 L. Review of Systems: A 14 point comprehensive review of systems was negative, except as documented in HPI. Intake/Output Summary (Last 24 hours) at 07/29/2023 0844 Last data filed at 07/29/2023 0600 Gross per 24 hour Intake 1309.15 ml Output 1175 ml Net 134.15 ml Inpatient Scheduled Medications: amLODIPine, 10 mg, Daily azithromycin, 500 mg, Daily cefTRIAXone (ROCEPHIN) IV/IM, 2 g, Q24H cloZAPine, 100 mg, Daily lactulose, 10 g, TID metoprolol succinate, 50 mg, Daily pantoprazole, 40 mg, QAM AC sertraline, 50 mg, Daily vancomycin, 1,250 mg, Q12H vancomycin, 2,250 mg, Once Inpatient PRN Medications: Inpatient IV Infusions: dexmedetomidine (PRECEDEX) infusion, Last Rate: 0.3 mcg/kg/hr (07/28/232132) Objective: Exam: General: alert, moderately built and nourished, moderate distress Skin: Normal skin turgor, no rashes Head: Normocephalic, without obvious abnormality HEENT: PERRLA, sclera anicteric Neck: normal, supple, no thyromegaly Heart: Tachycardic, irregularly irregular rhythm, S1, S2 normal, no murmur, click, rub or gallop Lungs: clear to auscultation bilaterally, no rhonchi or wheezes Abdominal: soft, non-tender; bowel sounds normal; no masses, no organomegaly Extremities: normal strength, tone, and muscle mass Neuro: oriented x3, CN II-XII intact Psychological: anxious Lab Results: Lab Results Component Value Date PHARTERIAL 7.39 07/28/2023 PO2ART 70 (L) 07/28/2023 [id number] 27 (L) 07/28/2023 O2ART 90 (L) 07/28/2023 Recent Labs Units 07/28/23 0850 BNP pg/mL 1,066* Recent Labs Units 07/29/23 0514 07/28/23 0850 WBC 10(3)/mcL 15.96* 19.07* HEMOGLOBIN g/dL 10.4* 10.7* HEMATOCRIT % 32.7* 33.6* PLATELETCNT 10(3)/mcL 42* 34* MCV fL 94.8 94.9 No results for input(s): INR , PTP in the last 72 hours. Recent Labs Units 07/29/23 0514 07/28/23 0850 SODIUM mmol/L 137 137 POTASSIUM mmol/L 4.6 3.9 CHLORIDE mmol/L 111* 107 CO2VEN mmol/L 19* 20* ANIONGAP mmol/L 11.6 13.9 GLUCOSE mg/dL 145* 170* BUN mg/dL 23 20 CREATININE mg/dL 0.77 0.97 BCRATIO8 ratio 30* 21* TOTALPROTEIN g/dL 6.2* 6.5 ALBUMIN g/dL 3.2* 3.4* CALCIUM mg/dL 8.1* 8.5* TBIL mg/dL 0.4 0.4 SGOTAST U/L 25 39* SGPTALT U/L 54 62* ALKALINEPHO U/L 57 63 GFRNA >60 >60 GFRA >60 >60 No results found for: CPK , CPKI , CKMB , CKMBNI , CKMBPOCT , CKMBRELINDX , TROPONINI , POCTRP No results found for: FOLATE No results found for: MAGNESIUM Lab Results Component Value Date LACTICA 1.4 07/29/2023 Lab Results Component Value Date [id number] 486 03/15/2023 Lab Results Component Value Date FERRITIN 23 04/24/2023 No results found for: GLUCOSEPOCT No results found for: DDIMER EKG: No results found. Imaging: XR CHEST SINGLE VIEW PORTABLE Result Date: 07/28/2023 IMPRESSION: Persistent though slightly improved interstitial and airspace infiltrates. XR CHEST SINGLE VIEW PORTABLE Result Date: 07/28/2023 IMPRESSION: Patchy bilateral lower lungs airspace opacities superimposed on diffusely coarsened interstitial markings; no pleural effusion. Total amount of critical care time spent in patient care 40 minutes. By: Uri Ny MD, 07/29/2023 8:44 AM MATERIALS SUPERVISOR RIALS SUPERVISOR RIALS SUPERVISOR documented in this encounter H&P Notes * Adriana Shine MD - 07/28/2023 3:41 PM CST [facility] ADMISSION HISTORY & PHYSICAL Chief Complaint: Shortness of breath and palpitations HPI: Iván Dumont is a 77 y.o. male who presented to [facility] with complaints of shortness of breath and palpitations. The patient has been symptomatic for the past 2-3 days but finally decided to come to the hospital for seeking further medical attention. The patient was found oneyda hypoxic at his arrival to the ER and was put on oxygen in order to keep his oxygen saturation above 88%. He was also in atrial fibrillation with rapid ventricular response. The patient received a dose of Cardizem in the emergency department and further evaluation found him to have a leukocytosisand he tested positive for the RSV and had evidence of scattered bilateral infiltrates on the chestx-ray. With the suspicion of viral and superimposed bacterial infection with sepsis and acute respiratory failure, the patient was admitted to the medical floor for further management. At the time I assessed the patient, he was in respiratory distress and was tachypneic and tachycardic in atrial fibrillation with RVR. He was on 5-6L of oxygen per nasal cannula. After receiving bronchodilator nebulizers, I was able to reduce his oxygen to 3 L. I will give him a dose of IV Cardizemand I have ordered an echocardiogram and consulted Cardiology for the new diagnosis of atrial fibrillation.. I independently obtained information from the patient Review of Systems: All systems reviewed and are negative except what is mentioned in HPI. Allergies: has No Known Allergies. Home Medications: Prior to Admission Medications Prescriptions Last Dose Informant Patient Reported? Taking? CLOZAPINE PO 07/28/2023 Yes Yes Sig: Take 100 mg by mouth daily. 50 mg at bedtime, 150 mg in the morning Enulose 10 GM/15ML Solution 07/28/2023 Yes Yes Sig: Take 20 g by mouth daily. Psyllium (REGULOID PO) 07/28/2023 Yes Yes Sig: Take by mouth 2 times daily. 1 TABLESPOON IN 8OZ WATER acetaminophen (TYLENOL) 325 MG Tablet 07/21/2023 Yes Yes Sig: Take 650 mg by mouth. amLODIPine (NORVASC) 10 MG Tablet 07/28/2023 No Yes Sig: Take 1 Tablet by mouth daily. docusate sodium (COLACE) 100 MG Capsule 07/28/2023 Yes Yes Sig: Take 100 mg by mouth 2 times daily. lactulose (CHRONULAC) 10 GM/15ML Solution Not Taking No No Sig: TAKE 30CC BY MOUTH ONCE DAILY Patient not taking: Reported on 07/28/2023 omeprazole (PriLOSEC) 20 MG CAPSULE DELAYED RELEASE 07/28/2023 No Yes Sig: Take 1 Capsule by mouth in the morning and at bedtime. sertraline (ZOLOFT) 50 MG Tablet 07/28/2023 Yes Yes Sig: Take 50 mg by mouth daily. Facility-Administered Medications: None I reconciled the patient's medications and the following modifications apply : Continue home medications Past Medical History: He has a past medical history of Arthritis, Schizophrenia (HCC), and Stroke (HCC). Chronic illnesses impacting patient care anemia Surgical History: has no past surgical history on file. Social History: reports that he has quit smoking. His smoking use included cigarettes. He has a 40.00 pack-year smoking history. He has never used smokeless tobacco. He reports that he does not currently use alcohol. He reports that he does not use drugs. Social Determinates of health affecting patient care nothing overall. The patient does not have anymajor issues and denies any history of smoking Family History: family history is not on file. Physical Exam: VITALS:Temp Av.9 ??F (36.6 ??C) Min: 97.9 ??F (36.6 ??C) Max: 98 ??F (36.7 ??C) BP Min: 106/74 Max: 146/77 Pulse Av.7 Min: 64 Max: 130 Heart Rate (Monitor) Av.3 Min: 96 Max: 117 Resp Av.4 Min: 20 Max: 31 SpO2 Av.8 % Min: 88 % Max: 98 % O2 Flow Rate (l/min): 5 l/min O2 Device: Nasal cannula No intake/output data recorded. Weight: Wt Readings from Last 1 Encounters: 07/28/23 205 lb (93 kg) BMI: Body mass index is 27.8 kg/m??. Exam: General: Well developed, appears in respiratory distress with tachypnea and wheezing Skin: Normal appearance, normal turgor, no rashes HEENT: Normocephalic, atraumatic, no flaring Eyes: nonicteric, intact extra occular movement, PERRL Neck: normal, supple, no lymphadenopathy Heart: irregularly irregular rhythm, rapid rate Lungs: - Coarse breath sounds, diffuse rhonchi Abdominal: soft, non-tender; bowel sounds normal; no masses, no organomegaly : external genitalia normal in appearance Extremities: no deformities, joint mobility appears intact, no clubbing Neuro: Non-focal, CN intact, sensory and motor intact Psychological: alert and oriented X3, appropriate mood and affect, Intact judgement and memory Data Review: XR CHEST SINGLE VIEW PORTABLE Result Date: 07/28/2023 IMPRESSION: Persistent though slightly improved interstitial and airspace infiltrates. XR CHEST SINGLE VIEW PORTABLE Result Date: 07/28/2023 IMPRESSION: Patchy bilateral lower lungs airspace opacities superimposed on diffusely coarsened interstitial markings; no pleural effusion. Lab Results Component Value Date WBC 19.07 (H) 07/28/2023 HEMOGLOBIN 10.7 (L) 07/28/2023 HEMATOCRIT 33.6 (L) 07/28/2023 PLATELETCNT 34 (L) 07/28/2023 MCV 94.9 07/28/2023 Lab Results Component Value Date SODIUM 137 07/28/2023 POTASSIUM 3.9 07/28/2023 CHLORIDE 107 07/28/2023 CO2VEN 20 (L) 07/28/2023 ANIONGAP 13.9 07/28/2023 GLUCOSE 170 (H) 07/28/2023 BUN 20 07/28/2023 CREATININE 0.97 07/28/2023 BCRATIO8 21 (H) 07/28/2023 TOTALPROTEIN 6.5 07/28/2023 ALBUMIN 3.4 (L) 07/28/2023 AGRATIO 1.3 03/15/2023 CALCIUM 8.5 (L) 07/28/2023 TBIL 0.4 07/28/2023 SGOTAST 39 (H) 07/28/2023 SGPTALT 62 (H) 07/28/2023 ALKALINEPHO 63 07/28/2023 GFRNA >60 07/28/2023 GFRA >60 07/28/2023 Lab Results Component Value Date CHOLESTEROL 168 03/15/2023 TRIGLYCRIDES 611 (H) 03/15/2023 HDLCHOLESTE 24 (L) 03/15/2023 LDL 0 07/29/2020 I reviewed images and test results. My personal interpretation is significant thrombocytopenia Outside hospital test results which showed: No other hospitals were visited by the patient Assessment/Plan: Principal Problem: Acute respiratory failure with hypoxia (HCC) Active Problems: Essential hypertension, benign Thrombocytopenia (HCC) Anemia RSV infection Plan 1. Sepsis present on admission. Probably secondary to a combination of viral and bacterial pneumonia. Continue IV antibiotics. This has been associated with increased lactic acid level and I will give him additional fluid resuscitation as well. 2. RSV pneumonia. No specific antiviral treatment is given. Continue supportive care. 3. Acute respiratory failure with hypoxia. The patient has not been on home oxygen therapy. Continue breathing treatments and oxygen supplementation. 4. Anemia. It is mild but has to be closely monitored. 5. Thrombocytopenia. This is rather significant. The patient can not be on any anticoagulation therapy. Further assessment should be done for the etiology but this is a chronic condition mostly. I will just keep him on SCDs. 6. Underlying hypertension. Resume home medications with Norvasc. 7. Underlying anxiety and depression. Continue current medications with clonazepam and SSRI therapy 8. History of GERD. Continue PPI therapy 9. Disposition: Admit to inpatient and treat for the pneumonia and respiratory failure and sepsis. 10. VTE Prophylaxis: Sequential Compression Devices Diagnostic tests considered CBC and CMP in a.m. Advance Care Planning: Aggregate [id number] time, greater than 16 minutes was spent discussing end-of-life care planning with patient/family and/or Power of Grades 1 Thru 6 Visiting Teacher. Discussed CPR, Intubation, treatment goals, and Quality of life/Intensity of care. Patient desires CPR-Full Treatment I have discussed the Care Plan with Patient and the nursing team I have discussed the treatment plan with Iván Dumont and patient appears to be compliant with care plan I thoroughly assessed the patient's condition and Level of care continue current level of care Treatment Team: Consulting Physician: Adam Scanlon MD Thank you very much for allowing the [facility] Adult Hospitalist Service to participate in the care of this patient By: Adriana Shine MD, 07/28/2023, 3:55 PM MATERIALS SUPERVISOR Primary Care Physician: Irving Jeffries MD RIALS SUPERVISOR documented in this encounter Procedure Notes * Archie Hilario MD - 07/30/2023 12:04 PM CST ENDOTRACHEAL INTUBATION PROCEDURE NOTE (NON-OR) Date of Procedure: 07/30/2023 Procedural Physician: Archie Hilario MD Indication for endotracheal intubation: respiratory failure Route: Oral Sedation: midazolam Paralytic: rocuronium Equipment: Simon 3 laryngoscope blade. ETT location confirmed by: ETCO2 monitor. Complications: None Procedure Details: Procedure done under emergency: yes The risks, benefits, complications, treatment options, and expected outcomes were discussed with the patient and the patient's partner. The risks and potential complications of their problem and purposed treatment include but are not limited to infection, bleeding, adverse drug reaction, pulmonary aspiration, the need for additional procedures, and creating a complication requiring transfusion oroperation. Consent was obtained from partner The patient was identified as Iván Dumont with Date of 1945 and the procedure verified as Endotracheal Intubation. A Time Out was held andthe above information confirmed. Vocal cords were able to be visualized and the patient was intubated via the Oral route. The tube was set in place at 26 cm. Post intubation examination was carried out with auscultation, end tidal carbon dioxide detector, and a stat portable chest x-ray. Condition: stable RIALS SUPERVISOR documented in this encounter Consult Notes * Allan Concepcion MD - 08/01/2023 12:56 PM CST Images from the original note were not included. ICU Pulmonary Consult Referring Physician: Dr. ny for acute hypoxemic respiratory failure Date of Service: 08/01/23 HPI: Mr. Iván Dumont is a 77-year-old male with a past medical history of prostate cancer and schizophrenia as well as CVA dated emergency room with shortness of breath and palpitation symptoms started 2-3 days prior to admission in the emergency room he was hypoxic was also found in atrial fibrillation with RVR he tested positive for RSV showed bilateral infiltrates initially he was admitted to the medical floor requiring 5-- 6 L supplemental oxygen Patient then was intubated on July 30 because of impending respiratory failure and moved to the ICU. He has been on ventilator since Has been on antibiotics and his WBC count have been improving is atrial fibrillation has been controlled At the time of evaluation he was on 35% oxygen satting in the high 90s and was not on any drips forsedation Patient Medical/Surgical History: Past Medical History Positives Diagnosis Date ??? Arthritis ??? Prostate cancer (HCC) ??? Schizophrenia (HCC) ??? Stroke (HCC) No past surgical history on file. Family History:No family history on file. Social History: Social History Tobacco Use ??? Smoking status: Former Packs/day: 2.00 Years: 20.00 Additional pack years: 0.00 Total pack years: 40.00 Types: Cigarettes ??? Smokeless tobacco: Never Vaping Use ??? Vaping Use: Never used Substance Use Topics ??? Alcohol use: Not Currently ??? Drug use: Never Medications: Current Facility-Administered Medications: ??? cefTRIAXone (ROCEPHIN) injection 2 g ??? cloZAPine (CLOZARIL) tablet 100 mg ??? ipratropium-albuterol (DUO-NEB) 0.5-2.5 (3) MG/3ML nebulizer solution 3 mL ??? lansoprazole (PREVACID SOLUTAB) disintegrating tablet 30 mg ??? LORazepam (ATIVAN) tablet 1 mg ??? magnesium hydroxide (MILK OF MAGNESIA) 400 MG/5ML suspension 30 mL ??? methylPREDNISolone Na Suc (PF) (Solu-MEDROL) injection 40 mg ??? metoprolol tartrate (LOPRESSOR) tablet 25 mg ??? midazolam (VERSED) 1 mg/mL premix IV ??? midazolam (VERSED) injection 2-4 mg ??? midazolam (VERSED) injection 2-4 mg ??? polyethylene glycol (GLYCOLAX, MIRALAX) packet 17 g ??? senna (SENOKOT) tablet 8.6 mg ??? sertraline (ZOLOFT) tablet 50 mg ??? Vancomycin HCl in NaCl 1.5-0.9 GM/250ML-% premix 1,500 mg No Known Allergies REVIEW OF SYSTEMS: A complete 14 point ROS was negative except as mentioned in HPI. PHYSICAL EXAM: Vitals: 08/01/23 1030 08/01/23 1100 08/01/23 1115 08/01/23 1130 BP: 129/63 Pulse: Resp: Temp: 98.2 ??F (36.8 ??C) TempSrc: SpO2: 99% 99% 99% Weight: Height: Body mass index is 28.28 kg/m??. General appearance: in no obvious distress. HEENT: Normocephalic, atraumatic, moist mucous membranes, eyes with anicteric sclera, corneas clear. Extraocular Movements intact. Pupils reactive to light and accomodation. No sinus tenderness.External inspection of ears and nose shows no lesion or scars. Intubated Neck: supple, symmetrical, trachea midline, no lymphadenopathy, thyroid: not enlarged, symmetric, no tenderness.. Thorax: the contour of the thorax is normal Lungs: no acute distress, normal percussion bilaterally. Clear breath sounds are auscultated bilaterally. No wheezes, crackles, rhonchi, or rubs were heard. There is no observed use of accessory muscles of breathing. Heart: regular rate and rhythm, S1, S2 normal, no murmur, click, rub or gallop, nondisplaced PMI. Abdomen: soft, non-tender, non-distended. There is no enlargement of the liver and spleen to palpation. Extremities: no cyanosis or clubbing. There is no edema of the lower extremities. Skin: warm, dry with no rash. Psych: the patient was , alert and oriented x3. Normal mood and effect. Ventilator Settings: Last Ventilator settings: Vent Mode: Assist control FIO2 (%): 35 % SpO2: 99 % Set Vt (ml): 450 ml Resp Rate (Set): 20 PEEP/CPAP (cm H2O): 5 cm H20 Pressure Support (cm H2O): 10 cm H2O Recent Labs Units 07/30/23 1015 PHARTERIAL 7.43 ZCY4ENA mmHg 34* PO2ART mmHg 76 O2ART % 92* Diagnostic Studies Lab Results Component Value Date SODIUM 141 08/01/2023 POTASSIUM 4.7 08/01/2023 CHLORIDE 111 (H) 08/01/2023 CO2VEN 22 08/01/2023 GLUCOSE 158 (H) 08/01/2023 ANIONGAP 12.7 08/01/2023 BUN 25 08/01/2023 CREATININE 0.69 (L) 08/01/2023 CALCIUM 8.1 (L) 08/01/2023 No results found for: MAGNESIUM No results found for: PHOSPHORUS Results for orders placed or performed during the hospital encounter of 07/28/23 Blood Culture #2 Specimen: Blood; Culture Result Value Ref Range Status CULTURE RESULTS NO GROWTH WITHIN 4 DAYS Preliminary Blood Culture #1 Specimen: Blood; Culture Result Value Ref Range Status CULTURE RESULTS NO GROWTH WITHIN 4 DAYS Preliminary Lab Results Component Value Date WBC 13.28 (H) 08/01/2023 HEMOGLOBIN 10.5 (L) 08/01/2023 HEMATOCRIT 33.1 (L) 08/01/2023 PLATELETCNT 80 (L) 08/01/2023 MCV 95.1 08/01/2023 @No results found for: INR , PTP Radiology: XR CHEST SINGLE VIEW PORTABLE Result Date: 08/01/2023 IMPRESSION: Tubes and lines with stable abnormal chest as above. Impression: Patient Active Problem List Diagnosis ??? GERD without esophagitis ??? Mixed hyperlipidemia ??? Essential hypertension, benign ??? Chronic undifferentiated schizophrenia (HCC) ??? Thrombocytopenia (HCC) ??? Anemia ??? Need for hepatitis C screening test ??? Acute respiratory failure with hypoxia (HCC) ??? RSV infection Acute hypoxemic respiratory failure due to RSV infection Plan CPAP trials Nebulizers Aspiration precautions Continue current antibiotics Droplet precautions Atrial fibrillation Plan Continue beta-blockers per Cardiology Anxiety/depression Plan Continue anxiolytics Left pleural effusion Plan Chest ultrasound Thank you very much for this consultation I will follow with you Total of 35 minutes of critical time was spent in direct patient care including review of medical records labs Radiology reports examined the patient formulating treatment plan and discussing the treatment plan with the patient care team and my documentation time Documentation for this visit on August 01 was completed using a template. I have seen and examined the patient. Everything documented was personally performed at this visit with the necessary additions, deletions and changes made as appropriate. Allan Concepcion MD 08/01/2023 12:56 PM MATERIALS SUPERVISOR RIALS SUPERVISOR * Archei Hilario MD - 07/29/2023 6:04 AM CST PC TECHNICIAN CONSULT Iván Serrato Marva was admitted with the chief complaint of respiratory failure atrial fibrillation. I was asked to see the patient and provide recommendations for management of respiratory failure RSV and MRSA pneumonia. HPI 77-year-old male admitted with respiratory failure atrial fibrillation found to be positive for RSVviral pneumonia. He lives at home with family has history of tobacco smoking no alcohol no drugs has arthritis schizophrenia previous cerebrovascular accident. He was treated with Cardizem and beta-blockers then transferred to ICU for increasing oxygen requirements now found to be positive for MRSA respiratory infection. HOME MEDICATIONS: Prior to Admission Medications Prescriptions Last Dose Informant Patient Reported? Taking? CLOZAPINE PO 07/28/2023 Yes Yes Sig: Take 100 mg by mouth daily. 50 mg at bedtime, 150 mg in the morning Enulose 10 GM/15ML Solution 07/28/2023 Yes Yes Sig: Take 20 g by mouth daily. Psyllium (REGULOID PO) 07/28/2023 Yes Yes Sig: Take by mouth 2 times daily. 1 TABLESPOON IN 8OZ WATER acetaminophen (TYLENOL) 325 MG Tablet 07/21/2023 Yes Yes Sig: Take 650 mg by mouth. amLODIPine (NORVASC) 10 MG Tablet 07/28/2023 No Yes Sig: Take 1 Tablet by mouth daily. docusate sodium (COLACE) 100 MG Capsule 07/28/2023 Yes Yes Sig: Take 100 mg by mouth 2 times daily. lactulose (CHRONULAC) 10 GM/15ML Solution Not Taking No No Sig: TAKE 30CC BY MOUTH ONCE DAILY Patient not taking: Reported on 07/28/2023 omeprazole (PriLOSEC) 20 MG CAPSULE DELAYED RELEASE 07/28/2023 No Yes Sig: Take 1 Capsule by mouth in the morning and at bedtime. sertraline (ZOLOFT) 50 MG Tablet 07/28/2023 Yes Yes Sig: Take 50 mg by mouth daily. Facility-Administered Medications: None ALLERGIES: Allergies There is no known ICA information for this patient. REVIEW OF SYSTEMS: A detailed 14 point systems review does not highlight any other acute problem. PAST MEDICAL HISTORY He has a past medical history of Arthritis, Schizophrenia ([facility]), and Stroke ([facility]). PAST SURGICAL HISTORY: has no past surgical history on file. FAMILY HISTORY: family history is not on file. SOCIAL HISTORY : reports that he has quit smoking. His smoking use included cigarettes. He has a 40.00 pack-year smoking history. He has never used smokeless tobacco. He reports that he does not currently use alcohol. He reports that he does not use drugs. PHYSICAL EXAM : Head within normal limits Neck supple Chest coarse Heart sounds regular Abdomen soft Good perfusion Awake cooperative nonfocal Agitated Airvo 75% oxygen 40 L Precedex infusion 0.4 VITALS: Patient Vitals for the past 12 hrs: BP Temp Pulse Heart Rate (Monitor) Resp SpO2 Weight Temp src 07/29/23 0400 106/61 -- -- 65 20 100 % -- -- 07/29/23 0300 110/62 97.3 ??F (36.3 ??C) -- 66 16 97 % -- -- 07/29/23 0200 109/59 -- -- 70 18 98 % -- -- 07/29/23 0100 105/59 -- -- 71 18 98 % -- -- 07/29/23 0000 119/72 -- -- 76 19 98 % -- -- 07/28/23 2300 118/73 97.3 ??F (36.3 ??C) -- 77 21 98 % -- Tympanic 07/28/23 2245 122/73 -- -- 79 19 96 % -- -- 07/28/232229 121/68 -- -- 88 24 98 % -- -- 07/28/232214 120/59 -- -- 81 21 96 % -- -- 07/28/230 125/70 -- -- 87 24 97 % -- -- 07/28/232152 106/70 97.6 ??F (36.4 ??C) -- 99 16 95 % -- -- 07/28/232114 -- -- -- (!) 105 28 94 % -- -- 07/28/232100 -- -- -- -- -- -- 208 lb 8 oz (94.6 kg) -- 07/28/232056 128/67 98 ??F (36.7 ??C) 94 -- 20 97 % -- Tympanic 07/28/232003 -- -- -- 92 -- 98 % -- -- 07/28/231844 -- -- -- 90 -- -- -- -- Temp (24hrs), Av.7 ??F (36.5 ??C), Min:97.3 ??F (36.3 ??C), Max:98 ??F (36.7 ??C) Weight: Wt Readings from Last 1 Encounters: 07/28/23 208 lb 8 oz (94.6 kg) DATA REVIEW : Chest X-Ray (my review): Bilateral infiltrates mild COPD EKG: NSR CBC: Lab Results Component Value Date WBC 19.07 (H) 07/28/2023 HEMOGLOBIN 10.7 (L) 07/28/2023 HEMATOCRIT 33.6 (L) 07/28/2023 PLATELETCNT 34 (L) 07/28/2023 CMP: Lab Results Component Value Date GLUCOSE 145 (H) 07/29/2023 SODIUM 137 07/29/2023 POTASSIUM 4.6 07/29/2023 CHLORIDE 111 (H) 07/29/2023 CO2VEN 19 (L) 07/29/2023 BUN 23 07/29/2023 CREATININE 0.77 07/29/2023 CALCIUM 8.1 (L) 07/29/2023 SGPTALT 54 07/29/2023 ALBUMIN 3.2 (L) 07/29/2023 ALKALINEPHO 57 07/29/2023 No results found for: CPK , CKMB , CKMBPOCT , CKMBRELINDX , TROPONINI , POCTRP Assessment/PLAN: 1. Neurologically: Awake nonfocal agitated requiring low-dose Precedex infusion 2. Cardiovascular: Regular rate admitted with atrial fibrillation continue beta- blockers cardiologyfollow-up echocardiogram pending 3. Respiratory: RSV and MRSA pneumonia continue Airvo wean oxygen add steroids 4. GI: GI prophylaxis diet 5. and renal: Stable 6. Endocrine: Glycemic control with insulin 7. Hematologically: Check daily counts stable has chronic thrombocytopenia 8. DVT prophylaxis: SCD hold heparin due to thrombocytopenia 9. Id: Continue empiric ceftriaxone Zithromax community-acquired observe RSV viral infection therapy for MRSA respiratory infection pneumonia Also a total of 65 minutes of critical care time were delivered to the patient today excluding procedures. Pain assessment: Ongoing Advance directives reviewed and on file. Voice recognition software was used to dictate this note. In spite of proof reading, typographical and/or content errors might have occurred. Thank you for this consult. More recommendations will be made as appropriate based on progress during hospitalization. Archie Hilario MD 36:04 AM MATERIALS SUPERVISOR RIALS SUPERVISOR RIALS SUPERVISOR * Ame Scanlon, AURICULAR ACUPUNCTURIST, SQL SERVER BI DEVELOPER - 07/28/2023 2:01 PM CSTAssociated Order(s): IP CONSULT TO CARDIOLOGY CARDIOLOGY CONSULTATION NOTE Iván Dumont is a 77 y.o. male admitted 07/28/2023 8:32 AM (LOS: 5 hours) CHIEF COMPLAINT Atrial Fibrillation with RVR HPI: Iván Dumont is a 77 y.o. male who presents with the above. PMHx significant for HTN, Stroke, Schizophrenia, who reported to ED with complaints of dyspnea, RSV+. Patient found to be in a-fib with RVR, noted hypoxia. Cardiology consulted for evaluation and recommendations. Patient denies chest pain, orthopnea, PND, edema. Feels better with O2 supplementation. He is not able to tell me when symptoms started. Patient seems to be poor historian. He reports he fell a couple months ago and that seems to be when he feels his health issues started. He is unable to describe symptoms over last 1-2 days. Past Medical/ Social/Family History: Medications Prior to Admission Medication Sig Dispense Refill ??? acetaminophen (TYLENOL) 325 MG Tablet Take 650 mg by mouth. ??? amLODIPine (NORVASC) 10 MG Tablet Take 1 Tablet by mouth daily. 30 Tablet 11 ??? CLOZAPINE PO Take 100 mg by [...] Reported on 07/28/2023) 946 mL 11 ??? omeprazole (PriLOSEC) 20 MG CAPSULE DELAYED RELEASE Take 1 Capsule by mouth in the morning and at bedtime. 30 Capsule 7 ??? Psyllium (REGULOID PO) Take by mouth 2 times daily. 1 TABLESPOON IN 8OZ WATER ??? sertraline (ZOLOFT) 50 MG Tablet Take 50 mg by mouth daily. No Known Allergies Past Medical History Positives Diagnosis Date ??? Arthritis ??? Schizophrenia (HCC) ??? Stroke (HCC) No [...] Session: Patient declined Stress: Patient Declined (07/28/2023) [employer] [place] [employer] - Occupational Stress Questionnaire ??? Feeling of Stress : Patient declined Social Integration: Patient Declined (07/28/2023) Social Connection and Isolation Panel [NHANES] ??? Frequency of Communication with Friends and Family: Patient declined ??? Frequency of Social Gatherings with Friends and Family: Patient declined ??? Attends [employer] Services: Patient declined ??? Active Member of [...] Housing in the Last Year: Patient declined No family history on file. Review of Systems: All systems were reviewed and are negative other than what is noted in HPI. Objective: BP 131/61 Pulse (!) 130 Temp 97.9 ??F (36.6 ??C) Resp 24 Ht 6' (1.829 m) Wt 205 lb (93 kg) SpO2 95% BMI 27.80 kg/m?? Physical Exam: General appearance: mild distress, cooperative, appears stated age Head: Normocephalic, without obvious abnormality, atraumatic Eyes: conjunctivae/corneas clear. Pupils equal, round, reactive to light. Extraocular Movements intact. Neck: supple, symmetrical, trachea midline and no adenopathy Lungs: scattered rhonchi Heart: irregularly irregular rhythm, tachycardic Abdomen: soft, non-tender. Bowel sounds normal. No masses, no organomegaly Extremities: extremities normal, atraumatic, no cyanosis or edema Pulses: 2+ and symmetric Musculoskeletal: Normal. Neurologic: Alert and oriented X 3. Normal strength and tone. Cardiographics: ECG: a-fib with RVR ??Echocardiogram: echo ordered Imaging: Chest X-Ray: FINDINGS: Central vascularity are somewhat ill-defined. Perihilar interstitial densities extending to the periphery with subtle confluence appearance similar to slightly improved from prior exam. ?? No effusion or pneumothorax. Lab Review: CBC: Lab Results Component Value Date WBC 19.07 (H) 07/28/2023 HEMOGLOBIN 10.7 (L) 07/28/2023 HEMATOCRIT 33.6 (L) 07/28/2023 PLATELETCNT 34 (L) 07/28/2023 BMP: Lab Results Component Value Date SODIUM 137 07/28/2023 POTASSIUM 3.9 07/28/2023 CHLORIDE 107 07/28/2023 CO2VEN 20 (L) 07/28/2023 GLUCOSE 170 (H) 07/28/2023 BUN 20 07/28/2023 CREATININE 0.97 07/28/2023 CREATININE 0.85 03/15/2023 CREATININE 0.92 01/05/2023 CALCIUM 8.5 (L) 07/28/2023 Coagulation: No results found for: INR , PT Cardiac markers: No results found for: CPK , CKMB , CKMBPOCT , CKMBRELINDX , TROPONINI , POCTRP Lab Results Component Value Date CHOLESTEROL 168 03/15/2023 TRIGLYCRIDES 611 (H) 03/15/2023 HDLCHOLESTE 24 (L) 03/15/2023 LDL 0 07/29/2020 Lab Results Component Value Date SGPTALT 62 (H) 07/28/2023 Lab Results Component Value Date BNP 1,066 (H) 07/28/2023 Latest Reference Range & Units 07/28/23 11:09 LACTIC ACID 0.7 - 2.0 mmol/L 3.8 (H) (H): Data is abnormally high Assessment: Atrial fibrillation with RVR Hypertension RSV+ Hypoxia Plan: -continues to be tachycardic -will start Toprol XL 50 mg daily. May increase to 50 mg BID if BP allows and if HR remains elevated -patient will need OAC due to CHADSVASc 5 (HTN, age, hx stroke) -if EF nml on echo may consider cardizem in needed for HR control. -will arrange for cardiology follow up in 1 month. See orders for recommended meds By: Ame Scanlon APRN, CNP, 07/28/2023, 2:01 PM MATERIALS SUPERVISOR Primary Care Physician: Irving Jeffries MD RIALS SUPERVISOR documented in this encounter ED Notes * Marbella Santo RN - 07/28/2023 12:20 PM CST Patient is being transferred to room 235 per tech via stretcher. Belongings being sent with patient. No changes in patient condition noted. Patient remains A&O x4. Patient transferred with 5L/NC O2. RIALS SUPERVISOR * Marbella Santo RN - 07/28/2023 12:19 PM CST Patient re-evaluated by Dr. Culp and sheryl for transfer to floor at this time. RIALS SUPERVISOR * Marbella Santo RN - 07/28/2023 11:26 AM CST Xray at bedside. RIALS SUPERVISOR * Marbella Santo RN - 07/28/2023 11:24 AM CST O2 increased to 5L to maintain SpO2 >90%. Dr. Culp made aware and at bedside for reassessment.Repeat chest xray ordered. RIALS SUPERVISOR * Pema Tinoco RN - 07/28/2023 10:38 AM CST SpO2 88% on 2L/NC, increased to 3L/NC but remained 88%. Increased to 4L/NC, SpO2 now in 90s. Pt medicated per provider orders. Pt educated on intended effects and side effects of medication and verbalized understanding, able to provide teach back of education. RIALS SUPERVISOR RIALS SUPERVISOR RIALS SUPERVISOR * Marbella Santo RN - 07/28/2023 9:45 AM CST Pt medicated per provider orders. Pt educated on intended effects and side effects of medication and verbalized understanding, able to provide teach back of education. RIALS SUPERVISOR * Marbella Santo RN - 07/28/2023 9:08 AM CST Pt medicated per provider orders. Pt educated on intended effects and side effects of medication and verbalized understanding, able to provide teach back of education. RIALS SUPERVISOR * Marbella Santo RN - 07/28/2023 8:59 AM CST RT at bedside for neb treatment. RIALS SUPERVISOR * Mason Culp MD - 07/28/2023 8:50 AM CSTAssociated Order(s): EKG 12 LEAD Chief Complaint Patient presents with ??? Shortness of Breath 77 year old male with no significant cardiac or pulmonary history presents with increasing SOB and cough that began 5 days ago. He denies any chest pain, nausea, vomiting, LE edema, calf pain or fevers. He does report a dry cough since onset of symptoms. Reports symptoms have gotten much worse today. Upon arrival he is noted to by hypoxic on RA with sats in the 80's. Current Facility-Administered Medications Medication Dose Route Frequency Provider Last Rate Last Admin ??? [START ON 07/29/2023] amLODIPine (NORVASC) tablet 10 mg 10 mg Oral Daily Adriana Shine MD ??? [START ON 07/29/2023] azithromycin (ZITHROMAX) tablet 500 mg 500 mg Oral Daily Adriana Shine MD ??? [START ON 07/29/2023] cefTRIAXone (ROCEPHIN) injection 2 g 2 g Intravenous Q24H Adriana Shine MD ??? cloZAPine (CLOZARIL) tablet 100 mg 100 mg Oral Daily Adriana Shine MD ??? lactulose (CHRONULAC) 10 GM/15ML solution 10 g 10 g Oral TID Adriana Shine MD ??? [COMPLETED] methylPREDNISolone Na Suc (PF) (Solu-MEDROL) injection 60 mg 60 mg Intravenous OnceDiAdriana lerner MD 60 mg at 07/28/23 1830 ??? metoprolol Succinate (TOPROL-XL) XL tablet 50 mg 50 mg Oral Daily Ame Scanlon, AURICULAR ACUPUNCTURIST, CNP50 mg at 07/28/23 1632 ??? [START ON 07/29/2023] pantoprazole (PROTONIX) tablet 40 mg 40 mg Oral QAM AC Adriana Shine MD ??? [START ON 07/29/2023] sertraline (ZOLOFT) tablet 50 mg 50 mg Oral Daily Adriana Shine MD No Known Allergies Past Medical History Positives Diagnosis Date ??? Arthritis ??? Schizophrenia (HCC) ??? Stroke (HCC) No [...] Session: Patient declined Stress: Patient Declined (07/28/2023) [employer] [place] [employer] - Occupational Stress Questionnaire ??? Feeling of Stress : Patient declined Social Integration: Patient Declined (07/28/2023) Social Connection and Isolation Panel [NHANES] ??? Frequency of Communication with Friends and Family: Patient declined ??? Frequency of Social Gatherings with Friends and Family: Patient declined ??? Attends [employer] Services: Patient declined ??? Active Member of [...] in the Last Year: Patient declined BP 128/73 Pulse (!) 111 Temp 97.9 ??F (36.6 ??C) Resp 24 Ht 6' (1.829 m) Wt 205 lb (93 kg) SpO2 92% BMI 27.80 kg/m?? Review of Systems Constitutional: Negative for chills and fever. HENT: Negative for congestion, ear pain, rhinorrhea and sore throat. Eyes: Negative for discharge. Respiratory: Positive for cough and shortness of breath. Negative for chest tightness and wheezing. Cardiovascular: Negative for chest pain and palpitations. Gastrointestinal: Negative for abdominal pain, diarrhea, nausea and vomiting. Genitourinary: Negative for dysuria, flank pain and frequency. Musculoskeletal: Negative for back pain and myalgias. Skin: Negative for rash. Neurological: Negative for syncope and headaches. All other systems reviewed and are negative. Physical Exam Constitutional: General: He is in acute distress. Appearance: He is ill-appearing and diaphoretic. Comments: Patient was awake alert and in moderate respiratory distress. He is diaphoretic with slightly ashen color. HENT: Head: Normocephalic and atraumatic. Nose: Nose normal. Mouth/Throat: Mouth: Mucous membranes are moist. Eyes: Extraocular Movements: Extraocular movements intact. Conjunctiva/sclera: Conjunctivae normal. Cardiovascular: Rate and Rhythm: Tachycardia present. Rhythm irregular. Comments: Distant heart sounds with no obvious murmur, irregular. Pulmonary: Effort: Tachypnea present. Comments: Tachypnea with moderate respiratory distress. Bilateral inspiratory and expiratory rhonchi with a prolonged expiratory phase. Abdominal: General: There is no distension. Palpations: Abdomen is soft. Tenderness: There is no abdominal tenderness. Musculoskeletal: General: No swelling. Normal range of motion. Cervical back: Normal range of motion. Skin: General: Skin is warm. Capillary Refill: Capillary refill takes less than 2 seconds. Coloration: Skin is not jaundiced. Neurological: General: No focal deficit present. Mental Status: He is alert and oriented to person, place, and time. Psychiatric: Mood and Affect: Mood normal. Behavior: Behavior normal. EKG 12 LEAD Performed by: Mason Culp MD Authorized by: Mason Culp MD ECG reviewed by ED Physician in the absence of a casing tier: yes Interpretation: Interpretation: abnormal Quality: Tracing quality: Limited by artifact Rate: ECG rate: 118 ECG rate assessment: tachycardic Rhythm: Rhythm: atrial fibrillation Ectopy: Ectopy: none Q waves: Abnormal Q-waves: present Q waves: V1 and V2 Comments: Rapid atrial fibrillation with septal infarct. No STEMI. No ectopy. Recent Results (from the past 24 hour(s)) CMP Result Value Ref Range SODIUM 137 136 - 145 mmol/L POTASSIUM 3.9 3.5 - 5.1 mmol/L CHLORIDE 107 98 - 107 mmol/L CO2, VENOUS 20 (L) 22 - 30 mmol/L ANION GAP 13.9 <18.0 mmol/L GLUCOSE 170 (H) 70 - 99 mg/dL BUN 20 8 - 26 mg/dL CREATININE, BLOOD 0.97 0.70 - 1.30 mg/dL BUN/CREATININE RATIO 21 (H) 12 - 20 ratio TOTAL PROTEIN 6.5 6.3 - 8.2 g/dL ALBUMIN 3.4 (L) 3.5 - 5.0 g/dL A/G RATIO 1.1 1.0 - 2.2 CALCIUM 8.5 (L) 8.7 - 10.5 mg/dL T BILI 0.4 0.2 - 1.2 mg/dL SGOT (AST) 39 (H) 5 - 34 U/L SGPT (ALT) 62 (H) 0 - 55 U/L ALKALINE PHOSPHATASE 63 40 - 150 U/L GFR, ESTIMATED >60 >=60 GFR, EST. >60 >=60 GFR, EST. NONAFRICAN >60 >=60 B-Type Natriuretic Peptide (BNP) Result Value Ref Range B TYPE NATRIURETIC PEPTIDE 1,066 (H) <100 pg/mL Lactic Acid (Lactate) Result Value Ref Range LACTIC ACID 3.0 (H) 0.7 - 2.0 mmol/L Procalcitonin Result Value Ref Range PROCALCITONIN 0.09 <=0.25 ng/mL CBC with Auto Differential Result Value Ref Range WBC 19.07 (H) 4.00 - 12.00 10(3)/mcL RBC 3.54 (L) 4.40 - 5.80 10(6)/mcL HEMOGLOBIN (HGB) 10.7 (L) 13.0 - 16.5 g/dL HEMATOCRIT (HCT) 33.6 (L) 38.0 - 50.0 % MCV 94.9 82.0 - 96.0 fL MCH 30.2 26.0 - 32.0 pg MCHC 31.8 31.0 - 36.0 g/dL PLATELET COUNT 34 (L) 140 - 440 10(3)/mcL RDW 14.4 11.8 - 15.5 % MPV NEUTROPHILS 87.0 (H) 40.0 - 68.0 % LYMPHOCYTES 4.8 (L) 19.0 - 49.0 % MONOCYTES 8.0 3.0 - 13.0 % EOSINOPHILS 0.0 0.0 - 8.0 % BASOPHILS 0.2 0.0 - 1.0 % ABSOLUTE NEUTROPHILS 16.61 (H) 1.40 - 5.30 10(3)/mcL ABSOLUTE LYMPHOCYTES 0.91 0.90 - 3.30 10(3)/mcL ABSOLUTE MONOCYTES 1.52 (H) 0.10 - 0.90 10(3)/mcL ABSOLUTE EOSINOPHIL 0.00 0.00 - 0.50 10(3)/mcL ABSOLUTE BASOPHILS 0.03 0.00 - 0.10 10(3)/mcL NRBC PER 100 WBC 0 RESULTS ARE CONSISTENT WITH PERIPHERAL SMEAR REVIEW Yes LARGE PLATELETS 1+ RSV,SARS-COV-2,INFLUENZA A&B BY PCR Specimen: Nasopharyngeal; Swab Result Value Ref Range FLU A Negative Negative, Error FLU B Negative Negative RESP SYNC VIRUS Positive (A) Negative SARSCOV2 NOT DETECTED (Reference Range for this test is Not Detected) Blood Gases, Venous w/ O2 Saturation Result Value Ref Range O2 STATUS 0 PH VENOUS 7.39 7.34 - 7.43 PCO2 (VENOUS) 34 (L) 41 - 51 mmHg PO2 VENOUS 40 30 - 50 mmHg O2 SAT JONI, MEASURED 62 60 - 85 % BICARBONATE 20.5 (L) 22.0 - 26.0 mmol/L BASE VENOUS -3.2 (L) -2.0 - 3.0 mmol/L CARBOXYHEMOGLOBIN 2.5 0.0 - 5.0 % METHEMOGLOBIN 0.3 0.0 - 1.5 % Lactic Acid (Lactate) Result Value Ref Range LACTIC ACID 3.8 (H) 0.7 - 2.0 mmol/L MRSA NASAL PCR Specimen: Nasal; Other Result Value Ref Range MRSA PCR RESULT Positive (A) Negative, Invalid, Indeterminate TROPONIN I, HIGH SENSITIVITY (HSTRP) Result Value Ref Range TROPONIN I, HIGH SENSITIVITY- JAIME 12 <=35 ng/L Blood Gases, Arterial w/ O2 Saturation Result Value Ref Range O2 STATUS 6 lpm nasal cannula PH ARTERIAL 7.39 7.35 - 7.45 PC02 (ARTERIAL) 27 (L) 35 - 45 mmHg PO2 (ARTERIAL) 70 (L) 75 - 100 mmHg O2 SAT ART, MEASURED 90 (L) 94 - 100 % BASE ARTERIAL -6.5 (L) -2.0 - 2.0 mmol/L BICARBONATE 16.5 (L) 22.0 - 26.0 mmol/L BERRY'S TEST RESULTS Positive - Right Radial CARBOXYHEMOGLOBIN 1.3 0.0 - 5.0 % METHEMOGLOBIN 0.5 0.0 - 1.5 % Imaging Results XR CHEST SINGLE VIEW PORTABLE (Final result) Result time 07/28/23 11:43:35 Final result by Nicolas Martinez MD (07/28/23 11:43:35) Impression: IMPRESSION: Persistent though slightly improved interstitial and airspace infiltrates. Narrative: EXAM DESCRIPTION: XR CHEST SINGLE VIEW PORTABLE REASON FOR STUDY: Respiratory failure today TECHNIQUE: Single-view COMPARISON: 07/28/2023 FINDINGS: Central vascularity are somewhat ill-defined. Perihilar interstitial densities extending to the periphery with subtle confluence appearance similar to slightly improved from prior exam. No effusion or pneumothorax. THIS IS AN ELECTRONICALLY VERIFIED FINAL REPORT 07/28/2023 11:41 AM - Electronically signed by Nicolas Martinez M.D. RB: RB Report ID: [id number] Reading Location: [id number] ADULT TRANS THORACIC ECHO 2D COMPLETE (No Result on File) XR CHEST SINGLE VIEW PORTABLE (Final result) Result time 07/28/23 09:00:28 Final result by Srikanth Mota MD (07/28/23 09:00:28) Impression: IMPRESSION: Patchy bilateral lower lungs airspace opacities superimposed on diffusely coarsened interstitial markings; no pleural effusion. Narrative: EXAM DESCRIPTION: XR CHEST SINGLE VIEW PORTABLE REASON FOR STUDY: Respiratory failure today superimposed on acute cough shortness of breath for 1 week. TECHNIQUE: Frontal radiographic view(s) of the chest. COMPARISON: PET scan 12/10/2010 FINDINGS: LUNGS: Patchy bilateral lower lungs airspace opacities superimposed on diffusely coarsened interstitial markings. No pleural effusion. No pneumothorax. HEART/MEDIASTINUM: Trachea midline. Heart normal size and contour. Hilar and mediastinal structures unremarkable. LINES/TUBES: None. BONES: No acute osseous abnormality. THIS IS AN ELECTRONICALLY VERIFIED FINAL REPORT 07/28/2023 8:57 AM - Electronically signed by Srikanth Mota M.D. EN: EN Report ID: [id number] Reading Location: [id number] 10:15 - spoke to Dr Shine who accepts the patient for admission and agrees with the current management. MDM Impression: Patient presents with rapid atrial fib,SOB and hypoxia concerning for pneumonia vs COPDvs CHF. Notably, further history obtained from prior visits and outside records were reviewed. Patient's history of Schizophrenia has impacted care and subsequent medical decision making. In the workup of these potential diagnoses I considered but did not pursue Chest CT due to signs and symptoms on exam and initial findings not consistent with these disease processes. Tests were independently reviewed and interpreted and imaging independently visualized and interpreted. This is notable for postive RSV, bilateral pneumonia. Interventions and treatments in the ER - patient was noted to be septic with an elevated lactic acid and elevated white blood cell count. He was treated with IV fluids, Rocephin and Zithromax to cover community-acquired pneumonia and given a dose of Lovenox due to his new onset atrial fibrillation.Patient was relatively rate controlled throughout his ED stay and currently has a heart rate of 98.Blood pressure has been soft at times so I considered giving Cardizem but decided against it due tothe occasional soft blood pressures. Patient was also treated with a DuoNeb and given 125 mg of IV Solu-Medrol after which he felt better and had significantly improved work of breathing and diminished wheezing. Plan for admission. Discussed the case with Dr Shine. Clinical Impression 1. Acute respiratory failure with hypoxia (HCC) 2. Pneumonia of both lungs due to infectious organism, unspecified part of lung 3. Atrial fibrillation, unspecified type (HCC) Disposition: Admit RIALS SUPERVISOR * Pema Tinoco RN - 07/28/2023 8:40 AM CST Patient now endorses a fall from an unknown cause approx. 4 days ago, and states he struck his headbut did not lose consciousness at that time. RIALS SUPERVISOR RIALS SUPERVISOR * Pema Tinoco RN - 07/28/2023 8:35 AM CST Patient to ED room 5A with c/o shortness of breath and cough x1 week and urinary issues for two weeks. Patient with labored respirations, prolonged expiratory period noted. Denies chest pain, N/V; SpO2 84% on room air. 2L/NC applied. Cardiac protocol initiated, EKG and labs in process. CHELO Culpat bedside for assessment. RIALS SUPERVISOR RIALS SUPERVISOR documented in this encounter Miscellaneous Notes * Interdisciplinary - Leon Dunne RN - 08/07/2023 12:35 PM CST Pt. Had discharge teachings completed by Lexi WERNER. Pt. Taken off the floor by wheelchair with all patient belongings and Cedillo in place. RIALS SUPERVISOR * Interdisciplinary - Lexi George RN - 08/07/2023 11:46 AM CST Discharge instructions explained to patient. Demonstrated how to empty cedillo catheter and javi care. Return demonstration from patient. RIALS SUPERVISOR * [employer] Patient Instructions - Lexi George RN - 08/07/2023 11:28 AM CST Images from the original note were not included. Patient Education Table of Contents Indwelling Urinary Catheter Care, Adult To view videos and all your education online visit, [email or web address] or scan this QR code with your smartphone. Access to this content will in one year. Indwelling Urinary Catheter Care, Adult An indwelling urinary catheter is a thin tube that is put into your bladder. The tube helps to drain pee (urine) out of your body. The tube goes in through your urethra. Your urethra is where pee comes out of your body. Your pee will come out through the catheter, then it will go into a bag (drainage bag). Take good care of your catheter so it will work well. What are the risks? Germs may get into your bladder and cause an infection. The tube can become blocked. Tissue near the catheter may become irritated and may bleed. How to wear your catheter and drainage bag Supplies needed Sticky tape (adhesive tape) or a leg strap. Alcohol wipe or soap and water (if you use tape). A clean towel (if you use tape). Large overnight bag. Smaller bag (leg bag). Wearing your catheter Attach your catheter to your leg with tape or a leg strap. Make sure the catheter is not pulled tight. If a leg strap gets wet, take it off and put on a dry strap. If you use tape to hold the bag on your le. Use an alcohol wipe or soap and water to wash your skin where the tape made it sticky before. Use a clean towel to pat-dry that skin. Use new tape to make the bag stay on your leg. Wearing your bags You should have been given a large overnight bag. You may wear the overnight bag in the day or night. Always have the overnight bag lower than your bladder. Do not let the bag touch the floor. Before you go to sleep, put a clean plastic bag in a wastebasket. Then, hang the overnight bag inside the wastebasket. You should also have a smaller leg bag that fits under your clothes. Wear the leg bag as told by the product maker. This may be above or below the knee, depending on the length of the tubing. Make sure that the leg bag is below the bladder. Make sure that the tubing does not have loops or too much tension. Do not wear your leg bag at night. How to care for your skin and catheter Supplies needed A clean washcloth. Water and mild soap. A clean towel. Caring for your skin and catheter Clean the skin around your catheter every day. 1. Wash your hands with soap and water. Wet a clean washcloth in warm water and mild soap. Clean the skin around your urethra. ? If you are female: ? Gently spread the folds of skin around your vagina (labia). ? With the washcloth in your other hand, wipe the inner side of your labia on each side. Wipe from front to back. ? If you are male: ? Pull back any skin that covers the end of your penis (foreskin). ? With the washcloth in your other hand, wipe your penis in small circles. Start wiping at the tip of your penis, then move away from the catheter. ? Move the foreskin back in place, if needed. With your free hand, hold the catheter close to where it goes into your body. ? Keep holding the catheter during cleaning so it does not get pulled out. With the washcloth in your other hand, clean the catheter. ? Only wipe downward on the catheter, toward the drainage bag. ? Do not wipe upward toward your body. Doing this may push germs into your urethra and cause infection. Use a clean towel to pat-dry the catheter and the skin around it. Make sure to wipe off all soap. Wash your hands with soap and water. Shower every day. Do not take baths. Do not use cream, ointment, or lotion on the area where the catheter goes into your body, unless your doctor tells you to. Do not use powders, sprays, or lotions on your genital area. Check your skin around the catheter every day for signs of infection. Check for: ? Redness, swelling, or pain. ? Fluid or blood. ? Warmth. ? Pus or a bad smell. How to empty the bag Supplies needed Rubbing alcohol. Gauze pad or cotton ball. Tape or a leg strap. Emptying the bag Pour the pee out of your bag when it is ?-? full, or at least 2?3 times a day. Do this for your overnight bag and your leg bag. 1. Wash your hands with soap and water. Separate (detach) the bag from your leg. Hold the bag over the toilet or a clean pail. Keep the bag lower than your hips and bladder. This is so the pee (urine) does not go back into the tube. Open the pour spout. It is at the bottom of the bag. Empty the pee into the toilet or pail. Do not let the pour spout touch any surface. Put rubbing alcohol on a gauze pad or cotton ball. Use the gauze pad or cotton ball to clean the pour spout. Close the pour spout. Attach the bag to your leg with tape or a leg strap. Wash your hands with soap and water. Follow instructions for cleaning the drainage bag. Instructions can come from: The product maker. Your doctor. How to change the bag Changing the bag Replace your bag when it starts to leak, smell bad, or look dirty. 1. Wash your hands with soap and water. Separate the dirty bag from your leg. Pinch the catheter with your fingers so that pee does not spill out. Separate the catheter tube from the bag tube where these tubes connect (at the connection valve). Do not let the tubes touch any surface. Clean the end of the catheter tube with an alcohol wipe. Use a different alcohol wipe to clean the end of the bag tube. Connect the catheter tube to the tube of the clean bag. Attach the clean bag to your leg with tape or a leg strap. Do not make the bag tight on your leg. Wash your hands with soap and water. General instructions Never pull on your catheter. Never try to take it out. Doing that can hurt you. Always wash your hands before and after you touch your catheter or bag. Use a mild, fragrance-free soap. If you do not have soap and water, use hand liquor blender. Always make sure there are no twists, bends, or kinks in the catheter tube. Always make sure there are no leaks in the catheter or bag. Drink enough fluid to keep your pee pale yellow. Do not take baths, swim, or use a hot tub. If you are female, wipe from front to back after you poop (have a bowel movement). Contact a doctor if: Your catheter gets clogged. Your catheter leaks. You have signs of infection at the catheter site, such as: ? Redness, swelling, or pain where the catheter goes into your body. ? Fluid, blood, pus, or a bad smell coming from the area where the catheter goes into your body. ? Skin feels warm where the catheter goes into your body. You have signs of a bladder infection, such as: ? Fever. ? Chills. ? Pee smells worse than usual. ? Cloudy pee. ? Pain in your belly, legs, lower back, or bladder. ? Vomiting or feel like vomiting. Get help right away if: You see blood in the catheter. Your pee is pink or red. Your bladder feels full. Your pee is not draining into the bag. Your catheter gets pulled out. Summary An indwelling urinary catheter is a thin tube that is placed into the bladder to help drain pee (urine) out of the body. The catheter is placed into the part of the body that drains pee from the bladder (urethra). Taking good care of your catheter will keep it working well. Always wash your hands before and after touching your catheter or bag. Never pull on your catheter or try to take it out. This information is not intended to replace advice given to you by your health care provider. Make sure you discuss any questions you have with your health care provider. Document Released: 2013-11-11 Document Updated: 2022-03-17 Document Reviewed: 2022-03-17 Elsevier Patient Education ? 2022 [employer] RIALS SUPERVISOR * Plan of Care - Leon Dunne RN - 08/07/2023 11:16 AM CST Problem: Adult Inpatient Plan of Care Goal: Plan of Care Review Outcome: Outcome Achieved Goal: Patient-Specific Goal (Individualized) Outcome: Outcome Achieved Goal: Absence of Hospital-Acquired Illness or Injury Outcome: Outcome Achieved Goal: Optimal Comfort and Wellbeing Outcome: Outcome Achieved Goal: Readiness for Transition of Care Outcome: Outcome Achieved Problem: Fall Injury Risk Goal: Absence of Fall and Fall-Related Injury Outcome: Outcome Achieved Problem: Gas Exchange Impaired Goal: Optimal Gas Exchange Outcome: Outcome Achieved Problem: Behavioral Health Comorbidity Goal: Maintenance of Behavioral Health Symptom Control Outcome: Outcome Achieved Problem: Anxiety Goal: Anxiety Reduction or Resolution Outcome: Outcome Achieved Problem: Disruptive Behavior Goal: Improved Impulse and Aggression Control (Disruptive Behavior) Outcome: Outcome Achieved Goal: Improved Mood Symptoms (Disruptive Behavior) Outcome: Outcome Achieved Goal: Improved Sleep (Disruptive Behavior) Outcome: Outcome Achieved Goal: Enhanced Social, Occupational or Functional Skills (Disruptive Behavior) Outcome: Outcome Achieved Problem: Skin Injury Risk Increased Goal: Skin Health and Integrity Outcome: Outcome Achieved Problem: Mechanical Ventilation Invasive Goal: Effective Communication Outcome: Outcome Achieved Goal: Optimal Device Function Outcome: Outcome Achieved Goal: Mechanical Ventilation Liberation Outcome: Outcome Achieved Goal: Optimal Nutrition Delivery Outcome: Outcome Achieved Goal: Absence of Device-Related Skin and Tissue Injury Outcome: Outcome Achieved Goal: Absence of Ventilator-Induced Lung Injury Outcome: Outcome Achieved Problem: Violence Risk or Actual Goal: Anger and Impulse Control Outcome: Outcome Achieved Problem: Balance Impairment (Functional Deficit) Goal: Improved Balance and Postural Control Outcome: Outcome Achieved Problem: Cognitive Impairment (Functional Deficit) Goal: Optimal Functional Maverick Outcome: Outcome Achieved Problem: Coordination Impairment (Functional Deficit) Goal: Optimal Coordination Outcome: Outcome Achieved Problem: Muscle Strength Impairment (Functional Deficit) Goal: Improved Muscle Strength Outcome: Outcome Achieved Problem: Muscle Tone Impairment (Functional Deficit) Goal: Improved Muscle Tone Outcome: Outcome Achieved Problem: Range of Motion Impairment (Functional Deficit) Goal: Optimal Range of Motion Outcome: Outcome Achieved Problem: Sensory Impairment (Functional Deficit) Goal: Compensation for Sensory Deficit Outcome: Outcome Achieved RIALS SUPERVISOR * Tena - Zandra Sanchez N - 08/07/2023 10:38 AM CST Beam Builder Helper - Transition Arrangements Coordinated Note - Transition Specialists do not coordinate all transitions or aspects of transitions- CONFIRM PATIENT READINESS WITH MOLD BLOWER PRIOR TO DISCHARGE Event Promotions Coordinator notified: yes, notified Etherl at the following time 1040 via secure chat. Additional Details of Discharge Plan: Patient will discharge on 08/07/2023 [facility] with [facility]. [facility] to call [phone] to initiate [facility] - coordination complete with [facility] (Home Health Agency) Updates for Iván Thornton ???s discharge sent to agencies and agency personnel notified: yes, notified[facility] intake at the following time 1035 via [employer] in-basket. Home Agency added to/ verified on patient's [facility] Care Team? Agency does not have a Direct Messaging Digital Address Agency is [facility] Follow-Up Appointment Information: Readmission risk level (if calculated) is: 1-Low (Note: makes the PRIMARY Hospital Follow Up appointment for Medium-High, High Risk and Heart Failure patients ONLY) N/A - Readmission risk level NOT high, medium-high, OR principle problem is NOT heart failure or COVID OR * Zandra Diaz - 08/07/2023 10:32 AM CST Beam Builder Helper Coordination Note SUMMARY - Beam Builder Helper currently working the potential transition plan(s): ??? 08/04/2023 @ 11:41 AM MATERIALS SUPERVISOR (ABPj, TS) Home Health [WASTE MANAGEMENT RECYCLING TECHNICIAN] (See detail within the referral type(s) below for information on what is needed to complete coordination Note - the Transition Specialists do not coordinate all transition types - please direct all question regarding hospital transition to the Event Promotions Coordinator) Readmission risk level (if calculated) is: 1-Low Primary Care Provider: PCP: Irving Jeffries MD Primary Medical Coverage: Medicaid [place] Secondary Medical Coverage: N/A Hospital Follow-Up appointment(s) scheduling status: ??? N/A - Readmission risk level NOT high, medium-high, OR principle problem is NOT heart failure or COVID Home Health Referral Status: pending Referral Type: New Provider who will sign on-going Home Health Plan of Care: PCP: Irving Jeffries MD Home Health Services Needed: nursing home, physical therapy, occupational therapy Needed Information / Documentation to complete Home Health coordination: ??? IP Consult to Home Health ??? Confirmed Discharge Date [facility]PT[facility] - coordination complete Contact is [facility] ?? 08/07/2023 @ 10:32 AM MATERIALS SUPERVISOR (OSMAN HARTMANN) per patient can return back to [facility] to call [phone] to set up HH ??? 08/07/2023 @ 8:40 AM MATERIALS SUPERVISOR (OSMAN HARTMANN) sent a secure chat to CM checking patients discharge readinessstatus ??? 08/04/2023 @ 11:41 AM MATERIALS SUPERVISOR (OSMAN ACOSTA) Sent referral to [facility] via [employer] In Basket RIALS SUPERVISOR RIALS SUPERVISOR * Tena - Ariane Mccartney - 08/07/2023 10:31 AM CST Case Management Discharge Readiness Note Iván Thornton 'amy readmission risk level (if calculated) is: 1-Low Patient Class: Inpatient Consecutive Inpatient Midnights 10 Actual day(s) of hospital stay (compare to working DRG): 10 Discharge: Final home discharge arrangements: home with Home Health Additional Information regarding DC Plan: Patient discharging with cedillo catheter due to rentention. LUIGI spoke to Terri Keith at [facility] and informed her of [facility]. CM informed her of patient one week follow up with urology to remove cedillo. Terri Keith reports understanding with no further questions at this time. LUIGI spoke to Lenora at Facility of patient returning. Lenora reports transportation will be here at 12:00 to pick patient up. CM spoke to [facility] who informed CM that patient has no prior auth or no charge for Xarelto. Discharge Plan Notification/ Verification 1. Patient's Phone numbers: [phone] (home) 2. Patient's preferred discharge phone number for follow up appointments, etc: (if different from above): N/A 3. Information for bedside nurse to call report and fax PACT Document in Sticky Note?: Not applicable - no external home care agencies or hemodialysis 4. Nursing notified: LOWELL Lee 5. Patient/ Decision Maker and family notified: Iván Thornton 6. Family/ Caregiver's readiness, willingness and ability to support patient with anticipated community discharge plan: Spoke with family/caregiver(s) (TERRI KEITH MAIRA), who is/are agreeable to anticipated discharge plan. No concerns expressed. IM Letter Documentation, if applicable N/A - Payor is not Medicare Decision Maker / Caregiver Information Medical Decision Maker Assessment: Health Care Surrogate appointed by (Comment) Medical Decision Maker, if patient unable: JeniseInna Rao Environmental Compliance Technician/Acoustic Intelligence Specialist Name: Terri Rao RIALS SUPERVISOR * Home Care Referral - Annie Jeffries MD - 08/07/2023 9:56 AM CST Face to Face Encounter Referral to Home Health made for Iván Dumont, : 1945. This patient has been under my care and I, or a nurse practitioner or physician???s nutrition assistant working with me, had a [id number] encounter with him that meets the requirements on (date) 08/07/2023. 1. Primary Reason for Home Health Care (description of the current medical condition): Deconditioning, strength, endurance; Cedillo catheter management; Outpatient labs: 08/09/2023 and 08/14/2023 --- cbc, bmp --- home health to draw. (This encounter was in whole or in part for the patient???s medical condition and reason for Home Care) Based on my findings, the following services are medically necessary home health services (must have at least one primary service: Nursing, PT, Speech Language Pathology): 2. Primary Services : Nursing and Physical Therapy Cedillo catheter management; Outpatient labs: 08/09/2023 and 08/14/2023 --- cbc, bmp --- home health to draw. Additional Services: 1.Cedillo catheter management; , Occupational Therapy, Nursing Care and PhysicalTherapy To provide the following care / treatments: 1.Cedillo catheter management; , Catheters, Rehabilitation Services and Gait Training My clinical findings support the need for the above services because of the following problems: 1.Cedillo catheter management; and Deconditioned due to hospitalization, requires further skilled services (Describe what the RN, PT, or SAMPLE MAKER ORIGINAL and other services will be doing in the home Therapy services must be provided with the expectation that, based on the assessment made by the physician of the patient's restorative potential, the condition of the patient will improve materially in a reasonable and generally predictable period of time.) This patient is considered homebound because: Unsteady gait/frequent falls/poor/balance and Dyspneaat rest (The patient must either: Because of illness or injury, need the aid of supportive devices such as crutches, canes, wheelchairs, and walkers; the use of special transportation; or the assistance of another person in order to leave their place of residence, OR Have a condition such that leaving his or her home is medically contraindicated AND there must exist: A normal inability to leave home; ANDLeaving home must require a considerable and taxing effort.) Allergies: Allergies There is no known ICA information for this patient. Immunizations: Immunization History Administered Date(s) Administered ??? COVID-19, Mrna, Lnp-s, Pf, 50 mcg/0.5 mL 05/10/2023 ??? Covid-19, Mrna, Lnp-s, Bivalent Booster, Moderna, 50 Mcg or 25 mcg dose 06/02/2022 ??? Covid-19, Mrna, Lnp-s, PF, 50 mcg/0.25 mL dose (Moderna BOOSTER) 07/01/2021 ??? Covid-19, Mrna, Lnp-s, Pf, 100 Mcg Or 50 Mcg Dose (MODERNA) 08/14/2020, 09/15/2020, 03/21/2022 ??? Influenza Vaccine greater than 3 yrs 05/26/2017 ??? Influenza Vaccine, High Dose 05/21/2018 ??? Influenza, High-dose, Quadrivalent 05/03/2021 ??? Influenza, Quadrivalent, Adjuvanted 05/05/2020, 05/06/2022, 05/10/2023 ??? Influenza, Trivalent, Adjuvanted 05/06/2019 ??? Rotavirus Pentavalent Vaccine (RV5) 05/15/2015 ??? Zoster Vaccine, live 05/24/2016 He has a past medical history of Arthritis, Prostate cancer (HCC), Schizophrenia (HCC), and Stroke (HCC). He has no past surgical history on file. Payor: [place]ICAID [place] / Plan: MEDICAID [place] / Product Type: *No Product type* / The physician who will be the attending physician for ongoing home care services and who will sign the Plan of Care will be: Irving Jeffries MD Referring Physician Statement: I have personally had a [id number] encounter with Iván Michelled am personally completing this referral order. [facility] and that I am the physician ordering Home Health services. This ismy electronic signature: Annie Jeffries MD; 08/07/2023, 9:58 AM MATERIALS SUPERVISOR RIALS SUPERVISOR * Interdisciplinary - Leon Dunne RN - 08/07/2023 9:56 AM CST Pt. Is sitting up in bed with call light in reach and chair alarm active. Pt. Has no complaints of pain or shortness of breath this am. Pt. Has cedillo in place with no signs of discomfort. Pt. Full assessment complete see flow sheet. RIALS SUPERVISOR * Plan of Care - Sidney Schroeder RN - 08/07/2023 3:00 AM CST Problem: Adult Inpatient Plan of Care Goal: Plan of Care Review Outcome: Ongoing (see interventions/notes) Flowsheets Taken 08/06/2023 1307 by KELSEY Today's Goal: Keep oxygen above 90% Outcome Evaluation: Pt is on room air and has fall precautions in place. cedillo draining yellow urine. Oral medication given. Taken 08/01/2023 05 by SJ Plan of Care Reviewed With: patient Taken 07/29/20231833 by AMY Progress: improving Does the patient need assistance with discharge and/or transitioning to the next level of care?: Yes, case management already following Goal: Patient-Specific Goal (Individualized) Outcome: Ongoing (see interventions/notes) Flowsheets (Taken 08/06/2023 1307 by KELSEY) Today's Goal: Keep oxygen above 90% Goal: Absence of Hospital-Acquired Illness or Injury Outcome: Ongoing (see interventions/notes) Intervention: Prevent and Manage VTE (Venous Thromboembolism) Risk Flowsheets (Taken 08/06/20231929) VTE Prevention/Management: anticoagulant therapy maintained Goal: Optimal Comfort and Wellbeing Outcome: Ongoing (see interventions/notes) Intervention: Monitor Pain and Promote Comfort Flowsheets (Taken 08/06/2023 07 by SANDY) Pain Management Interventions: care clustered diversional activity encouraged Intervention: Provide Person-Centered Care Flowsheets (Taken 08/06/20231929) Trust Relationship/Rapport: care explained choices provided questions answered questions encouraged respect patient/family decisions provided safe/supportive environment facilitated nonverbal communication acknowledged reassurance provided Goal: Readiness for Transition of Care Outcome: Ongoing (see interventions/notes) Problem: Fall Injury Risk Goal: Absence of Fall and Fall-Related Injury Outcome: Ongoing (see interventions/notes) Intervention: Identify and Manage Contributors Flowsheets Taken 08/06/20231929 by SIDNEY Medication Review/Management: medications reviewed Taken 08/06/2023 07 by SANDY Self-Care Promotion: independence encouraged BADL personal objects within reach Intervention: Promote Injury-Free Environment Flowsheets (Taken 08/06/20231999 by ARNAUD) Safety Promotion/Fall Prevention: nonskid shoes/slippers when out of bed low bed Problem: Gas Exchange Impaired Goal: Optimal Gas Exchange Outcome: Ongoing (see interventions/notes) Intervention: Optimize Oxygenation and Ventilation Flowsheets Taken 08/06/20232127 by ARNAUD Head of Bed (HOB) Positioning: HOB at 20-30 degrees Taken 08/02/2023 1100 by Nurse Rosetta RN Airway/Ventilation Management: airway patency maintained Problem: Behavioral Health Comorbidity Goal: Maintenance of Behavioral Health Symptom Control Outcome: Ongoing (see interventions/notes) Intervention: Maintain Behavioral Health Symptom Control Flowsheets (Taken 08/06/20231929) Medication Review/Management: medications reviewed Problem: Anxiety Goal: Anxiety Reduction or Resolution Outcome: Ongoing (see interventions/notes) Intervention: Promote Anxiety Reduction Flowsheets Taken 08/06/2023 0700 by SANDY Family/Support System Care: self-care encouraged Taken 08/05/20231899 by ANA CLEARY Supportive Measures: positive reinforcement provided Problem: Disruptive Behavior Goal: Improved Impulse and Aggression Control (Disruptive Behavior) Outcome: Ongoing (see interventions/notes) Goal: Improved Mood Symptoms (Disruptive Behavior) Outcome: Ongoing (see interventions/notes) Intervention: Optimize Emotion and Mood Flowsheets (Taken 08/05/20231899 by ANA CLEARY) Supportive Measures: positive reinforcement provided Goal: Improved Sleep (Disruptive Behavior) Outcome: Ongoing (see interventions/notes) Goal: Enhanced Social, Occupational or Functional Skills (Disruptive Behavior) Outcome: Ongoing (see interventions/notes) Intervention: Promote Social, Occupational and Functional Ability Flowsheets (Taken 08/06/2023 1930) Trust Relationship/Rapport: care explained choices provided questions answered questions encouraged respect patient/family decisions provided safe/supportive environment facilitated nonverbal communication acknowledged reassurance provided Problem: Skin Injury Risk Increased Goal: Skin Health and Integrity Outcome: Ongoing (see interventions/notes) Intervention: Optimize Skin Protection Flowsheets Taken 08/06/20232127 by ARNAUD Activity Management: activity adjusted per tolerance up to bedside commode Head of Bed (HOB) Positioning: HOB at 20-30 degrees Taken 08/06/2023 0700 by SANDY Pressure Reduction Devices: pressure-redistributing mattress utilized Taken 08/05/2023 1900 by ANA CLEARY Pressure Reduction Techniques: independent Taken 08/05/2023 0700 by SANDY Skin Protection: adhesive use limited Problem: Mechanical Ventilation Invasive Goal: Effective Communication Outcome: Ongoing (see interventions/notes) Intervention: Ensure Effective Communication Flowsheets Taken 08/06/2023 1930 by SIDNEY Warner Relationship/Rapport: care explained choices provided questions answered questions encouraged respect patient/family decisions provided safe/supportive environment facilitated nonverbal communication acknowledged reassurance provided Taken 08/06/2023 0700 by SANDY Diversional Activities: television Family/Support System Care: self-care encouraged Goal: Optimal Device Function Outcome: Ongoing (see interventions/notes) Intervention: Optimize Device Care and Function Flowsheets Taken 08/05/2023 2300 by ANA CLEARY Airway Safety Measures: manual resuscitator/mask at bedside suction at bedside Taken 08/05/2023 2100 by ANA CLEAYR Oral Care: oral rinse provided Taken 08/02/2023 1100 by Nurse Sargent, RN Airway/Ventilation Management: airway patency maintained Goal: Mechanical Ventilation Liberation Outcome: Ongoing (see interventions/notes) Intervention: Promote Extubation and Mechanical Ventilation Liberation Flowsheets Taken 08/06/2023 1930 by SIDNEY Medication Review/Management: medications reviewed Taken 08/06/2023 0700 by SANDY Sleep/Rest Enhancement: awakenings minimized Goal: Optimal Nutrition Delivery Outcome: Ongoing (see interventions/notes) Intervention: Optimize Nutrition Delivery Flowsheets (Taken 08/02/2023 1500 by Nurse Sargent, RN) Nutrition Support Management: (TUBE FEEDING MAINTAINED) other (see comments) Goal: Absence of Device-Related Skin and Tissue Injury Outcome: Ongoing (see interventions/notes) Intervention: Maintain Skin and Tissue Health Flowsheets (Taken 08/06/2023 0700 by SANDY) Device Skin Pressure Protection: absorbent pad utilized/changed adhesive use limited Goal: Absence of Ventilator-Induced Lung Injury Outcome: Ongoing (see interventions/notes) Intervention: Prevent Ventilator-Associated Pneumonia Flowsheets Taken 08/06/20232127 by ARNAUD Head of Bed (HOB) Positioning: HOB at 20-30 degrees Taken 08/05/2023 2100 by ANA CLEARY Oral Care: oral rinse provided Taken 08/02/2023 0300 by SJ VAP Prevention Bundle: Oral care performed HOB elevated 30-45 Degrees SUP maintained VTE prophylaxis maintained VAP Prevention Measures: completed Problem: Violence Risk or Actual Goal: Anger and Impulse Control Outcome: Ongoing (see interventions/notes) Intervention: Promote Self-Control Flowsheets (Taken 08/05/2023 1900 by ANA CLEARY) Supportive Measures: positive reinforcement provided Problem: Balance Impairment (Functional Deficit) Goal: Improved Balance and Postural Control Outcome: Ongoing (see interventions/notes) Intervention: Optimize Balance and Safe Activity Flowsheets Taken 08/06/20232127 by ARNAUD Activity Management: activity adjusted per tolerance up to bedside commode Taken 08/06/2023 2000 by ARNAUD Safety Promotion/Fall Prevention: nonskid shoes/slippers when out of bed low bed Taken 08/06/2023 0700 by SANDY Self-Care Promotion: independence encouraged BADL personal objects within reach Problem: Cognitive Impairment (Functional Deficit) Goal: Optimal Functional Maverick Outcome: Ongoing (see interventions/notes) Intervention: Optimize Cognitive Function Flowsheets (Taken 08/06/2023 07 by SANDY) Self-Care Promotion: independence encouraged BADL personal objects within reach Problem: Coordination Impairment (Functional Deficit) Goal: Optimal Coordination Outcome: Ongoing (see interventions/notes) Intervention: Optimize Motor Coordination and Function Flowsheets (Taken 08/06/2023 07 by SANDY) Self-Care Promotion: independence encouraged BADL personal objects within reach Problem: Muscle Strength Impairment (Functional Deficit) Goal: Improved Muscle Strength Outcome: Ongoing (see interventions/notes) Intervention: Optimize Muscle Strength Flowsheets Taken 08/06/20232127 by ARNAUD Activity Management: activity adjusted per tolerance up to bedside commode Taken 08/06/2023 1400 by ELVIRA Activity Assistance Provided: assistance, 1 person Taken 08/06/2023 07 by SANDY Self-Care Promotion: independence encouraged BADL personal objects within reach Problem: Muscle Tone Impairment (Functional Deficit) Goal: Improved Muscle Tone Outcome: Ongoing (see interventions/notes) Problem: Range of Motion Impairment (Functional Deficit) Goal: Optimal Range of Motion Outcome: Ongoing (see interventions/notes) Intervention: Maintain Functional Joint Range Position Flowsheets (Taken 08/06/20232127 by ARNAUD) Positioning/Transfer Devices: pillows in use Problem: Sensory Impairment (Functional Deficit) Goal: Compensation for Sensory Deficit Outcome: Ongoing (see interventions/notes) Intervention: Optimize Sensory Function Flowsheets Taken 08/06/2023 07 by SANDY Pressure Reduction Devices: pressure-redistributing mattress utilized Taken 08/05/2023 0700 by SANDY Skin Protection: adhesive use limited RIALS SUPERVISOR * Plan of Care - Kelsey Brownlee RN - 08/06/2023 1:08 PM CST Problem: Adult Inpatient Plan of Care Goal: Plan of Care Review Outcome: Ongoing (see interventions/notes) Flowsheets Taken 08/06/2023 1307 by KELSEY Today's Goal: Keep oxygen above 90% Outcome Evaluation: Pt is on room air and has fall precautions in place. cedillo draining yellow urine. Oral medication given. Taken 08/01/2023 0522 by SJ Plan of Care Reviewed With: patient Taken 07/29/2023 1834 by AMY Progress: improving Does the patient need assistance with discharge and/or transitioning to the next level of care?: Yes, case management already following Goal: Patient-Specific Goal (Individualized) Outcome: Ongoing (see interventions/notes) Goal: Absence of Hospital-Acquired Illness or Injury Outcome: Ongoing (see interventions/notes) Goal: Optimal Comfort and Wellbeing Outcome: Ongoing (see interventions/notes) Goal: Readiness for Transition of Care Outcome: Ongoing (see interventions/notes) Problem: Fall Injury Risk Goal: Absence of Fall and Fall-Related Injury Outcome: Ongoing (see interventions/notes) Problem: Gas Exchange Impaired Goal: Optimal Gas Exchange Outcome: Ongoing (see interventions/notes) Problem: Behavioral Health Comorbidity Goal: Maintenance of Behavioral Health Symptom Control Outcome: Ongoing (see interventions/notes) Problem: Anxiety Goal: Anxiety Reduction or Resolution Outcome: Ongoing (see interventions/notes) Problem: Disruptive Behavior Goal: Improved Impulse and Aggression Control (Disruptive Behavior) Outcome: Ongoing (see interventions/notes) Goal: Improved Mood Symptoms (Disruptive Behavior) Outcome: Ongoing (see interventions/notes) Goal: Improved Sleep (Disruptive Behavior) Outcome: Ongoing (see interventions/notes) Goal: Enhanced Social, Occupational or Functional Skills (Disruptive Behavior) Outcome: Ongoing (see interventions/notes) Problem: Mechanical Ventilation Invasive Goal: Effective Communication Outcome: Ongoing (see interventions/notes) Goal: Optimal Device Function Outcome: Ongoing (see interventions/notes) Goal: Mechanical Ventilation Liberation Outcome: Ongoing (see interventions/notes) Goal: Optimal Nutrition Delivery Outcome: Ongoing (see interventions/notes) Goal: Absence of Device-Related Skin and Tissue Injury Outcome: Ongoing (see interventions/notes) Goal: Absence of Ventilator-Induced Lung Injury Outcome: Ongoing (see interventions/notes) Problem: Violence Risk or Actual Goal: Anger and Impulse Control Outcome: Ongoing (see interventions/notes) Problem: Balance Impairment (Functional Deficit) Goal: Improved Balance and Postural Control Outcome: Ongoing (see interventions/notes) Problem: Cognitive Impairment (Functional Deficit) Goal: Optimal Functional [place] Outcome: Ongoing (see interventions/notes) Problem: Coordination Impairment (Functional Deficit) Goal: Optimal Coordination Outcome: Ongoing (see interventions/notes) Problem: Muscle Strength Impairment (Functional Deficit) Goal: Improved Muscle Strength Outcome: Ongoing (see interventions/notes) Problem: Range of Motion Impairment (Functional Deficit) Goal: Optimal Range of Motion Outcome: Ongoing (see interventions/notes) Problem: Sensory Impairment (Functional Deficit) Goal: Compensation for Sensory Deficit Outcome: Ongoing (see interventions/notes) RIALS SUPERVISOR * Interdisciplinary - Marisol Murillo RT - 08/06/2023 10:22 AM MATERIALS SUPERVISOR Respiratory Therapy Assessment And Education Points 0 1 2 3 4 Score Pulmonary History No Smoking Smokes <1 ppd Smokes 1 ppd or more Pulmonary impairment (acute or chronic) Severe or Chronic exacerbation 3 Surgical Status None General Surgery Lower Abdominal Surgery Thoracic or Upper Abdominal Surgery Thoracic with Pulmonary Disease 0 CXR (from last 24 hrs) Clear Unavailable Infiltrates, Atelectasis or Pleural effusion Infiltrates in more than 1 lobe Infiltrates plus Atelectasis or Pleural effusion 1 Respirations Regular Pattern, RR 8-20 Increased, RR 21-25 Dyspnea on exertion, irregular pattern, RR 26-30 Use of accessory muscles, prolonged expiration, RR 31-35 Severe SOB with use of accessory muscles, RR >35 0 BS Clear Diminished Unilaterally Diminished Bilaterally Crackles in Bases Wheezing and/or Rhonchi 0 Cough Strong, Non- productive cough Strong, productive cough Weak, Non- productive cough Weak, productive cough No cough, may require suctioning 0 Mental status Alert and oriented Lethargic, follows commands Confused, does not follow commands Obtunded Comatose 0 Level of Activity Ambulatory Ambulatory with assistance Temporarily non-Ambulatory Bed rest, able to position self Bed rest, unable to position self 1 O2 required to keep SpO2 >=92% (or ordered goal) None 1-3 L/M or FiO2 25-35% 4-6 L/M or FiO2 35-50% >50% 100% 0 Total Score 5 Treatment Scoring Guide Frequency Utilize ORDER SET for all changes Severity Level 5 > 20 points Q2 and Q4 Albuterol Q2 and Ipratropium Q4 *Discontinue previous orders* Severity Level 4 16-20 points Q4 and PRN Duoneb Q4 and Albuterol Q2 PRN *Discontinue previous orders* Severity Level 3 11-15 points QID and PRN Duoneb QID and Albuterol Q4 PRN *Discontinue previous orders* Severity Level 2 6-10 points TID and Q6 PRN Albuterol only *Discontinue previous orders* Severity Level 1 0-5 points Q6 PRN Albuterol only *Discontinue previous orders* Home Regimen Home medication orders As per reconciled home medications Patient RTA Severity Level Is: Level 1 Patient Progression Since Admission: not changed Treatment Plan Adjusted: No: Education Documented (within Education Tab): Yes Education Provided To: not reviewed Comments: By: MARISOL MURILLO, RT; 08/06/2023, 10:22 AM MATERIALS SUPERVISOR RIALS SUPERVISOR * Sandy Campbell RN - 08/06/2023 8:52 AM CST Report called to Kelsey on . Patient will be transferred to room 209. Sandy Prince RN RIALS SUPERVISOR * Ana Cox RN - 08/06/2023 6:42 AM MATERIALS SUPERVISOR Patient bedside shift report given to ALPHONSO Delgado. No IFV's infusing. Pt A&Ox3, calm and pleasant. 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 SpO2 at 94% with spot checks. Pt resting in bed with call light in reach. Bed alarm is on. No acute distress noted. RIALS SUPERVISOR * Interdisciplinary - Christina Kearney, FORENSIC LOCKSMITH - 08/05/2023 8:26 AM CST Respiratory Therapy Assessment And Education Points 0 1 2 3 4 Score Pulmonary History No Smoking Smokes <1 ppd Smokes 1 ppd or more Pulmonary impairment (acute or chronic) Severe or Chronic exacerbation 3 Surgical Status None General Surgery Lower Abdominal Surgery Thoracic or Upper Abdominal Surgery Thoracic with Pulmonary Disease 0 CXR (from last 24 hrs) Clear Unavailable Infiltrates, Atelectasis or Pleural effusion Infiltrates in more than 1 lobe Infiltrates plus Atelectasis or Pleural effusion 1 Respirations Regular Pattern, RR 8-20 Increased, RR 21-25 Dyspnea on exertion, irregular pattern, RR 26-30 Use of accessory muscles, prolonged expiration, RR 31-35 Severe SOB with use of accessory muscles, RR >35 0 BS Clear Diminished Unilaterally Diminished Bilaterally Crackles in Bases Wheezing and/or Rhonchi 0 Cough Strong, Non- productive cough Strong, productive cough Weak, Non- productive cough Weak, productive cough No cough, may require suctioning 0 Mental status Alert and oriented Lethargic, follows commands Confused, does not follow commands Obtunded Comatose 0 Level of Activity Ambulatory Ambulatory with assistance Temporarily non-Ambulatory Bed rest, able to position self Bed rest, unable to position self 1 O2 required to keep SpO2 >=92% (or ordered goal) None 1-3 L/M or FiO2 25-35% 4-6 L/M or FiO2 35-50% >50% 100% 0 Total Score 5 Treatment Scoring Guide Frequency Utilize ORDER SET for all changes Severity Level 5 > 20 points Q2 and Q4 Albuterol Q2 and Ipratropium Q4 *Discontinue previous orders* Severity Level 4 16-20 points Q4 and PRN Duoneb Q4 and Albuterol Q2 PRN *Discontinue previous orders* Severity Level 3 11-15 points QID and PRN Duoneb QID and Albuterol Q4 PRN *Discontinue previous orders* Severity Level 2 6-10 points TID and Q6 PRN Albuterol only *Discontinue previous orders* Severity Level 1 0-5 points Q6 PRN Albuterol only *Discontinue previous orders* Home Regimen Home medication orders As per reconciled home medications Patient RTA Severity Level Is: 1 Patient Progression Since Admission: improved Treatment Plan Adjusted: No: Education Documented (within Education Tab): Yes Education Provided To: patient Comments: By: CHRISTINA KEARNEY, FORENSIC LOCKSMITH; 08/05/2023, 8:27 AM MATERIALS SUPERVISOR RIALS SUPERVISOR * Interdisciplinary - Ana Calderon RN - 08/04/2023 6:50 PM MATERIALS SUPERVISOR Patient report received from ALPHONSO Vazquez. Assumed pt care a this time. No IVF's infusing. Pt A&Ox2-3. Pt resting in bed with call light in reach. Bed alarm is on. Pt updated to plan of care. No acute distress noted at this time. RIALS SUPERVISOR * Interdisciplinary - Taylor Colvin RN - 08/04/2023 6:48 PM CST Patient report given to ALPHONSO Perez. Patient resting in bed. Patient A&Ox3. Vital Signs per flowsheet. Call light within reach. Bed alarm on. Patient updated to plan of care. No acute distress noted. RIALS SUPERVISOR * Tena - Taylor Colvin RN - 08/04/2023 6:15 PM CST 25 ml found in his urinal but bed was soaked with urine. Patient reminded to let nursing staff knowif he needs cleaned up. Patient bathed, linens changed, urinal placed at bedside. RIALS SUPERVISOR RIALS SUPERVISOR * Plan of Care - Liliana Vargas MS CCC-SAMPLE MAKER ORIGINAL - 08/04/2023 2:37 PM MATERIALS SUPERVISOR Speech Pathology Attempted dysphagia follow up at this time. Per nursing, patient had no issues with oral intake this date with good volume of intake this date. Patient currently sleeping. Speech Pathology to defer at this time. Alerted nursing to attempt and plan to see at later time/date. By: LILIANA VARGAS MS CCC-SAMPLE MAKER ORIGINAL; 08/04/2023, 2:38 PM MATERIALS SUPERVISOR RIALS SUPERVISOR * Tena - Mónica Melton - 08/04/2023 11:41 AM CST Beam Builder Helper Coordination Note SUMMARY - Beam Builder Helper currently working the potential transition plan(s): ??? 08/04/2023 @ 11:41 AM MATERIALS SUPERVISOR ([facility]) Home Health [WASTE MANAGEMENT RECYCLING TECHNICIAN] (See detail within the referral type(s) below for information on what is needed to complete coordination Note - the Transition Specialists do not coordinate all transition types - please direct all question regarding hospital transition to the Event Promotions Coordinator) Readmission risk level (if calculated) is: 1-Low Primary Care Provider: PCP: Irving Jeffries MD Primary Medical Coverage: Medicaid [place] Secondary Medical Coverage: N/A Hospital Follow-Up appointment(s) scheduling status: ??? N/A - Readmission risk level NOT high, medium-high, OR principle problem is NOT heart failure or COVID Home Health Referral Status: pending Referral Type: New Provider who will sign on-going Home Health Plan of Care: PCP: Irving Jeffries MD Home Health Services Needed: nursing home, physical therapy, occupational therapy Needed Information / Documentation to complete Home Health coordination: ??? IP Consult to Home Health ??? Confirmed Dis[facility] Date [facility] - [facility] Contact [facility] ??? 08/04/2023 @ 11:41 AM MATERIALS SUPERVISOR (, [facility]) Sent referral to [facility] via [employer] In Basket RIALS SUPERVISOR * Ariane Heller - 08/04/2023 10:06 AM CST Case Management Patient / Patient Multiple Games Dealer Contact Note Iván Thornton 's readmission risk level (if calculated) is: 1-Low Patient Class: Inpatient Consecutive Inpatient Midnights 7 Actual day(s) of hospital stay (compare to working DRG):7 New Consult for Case Management? No Summary: By phone, spoke with friend Terri Rao and introduced self and role and discussed plan of care. CM spoke to Terri Keith at [facility]( community administrator) in regards to possible discharge on Mon or Monday. Terri Keith reports that wont work due to not having patient medications or nursing staff over theweekend ) Kevin has requested patient return on Monday. CM informed her that CM will inform patient physician of her requested. Plan of Care:(Problem/ situation/ barrier + goals/ milestones + interventions + evaluation of progress = Plan of Care) Iván Thornton 's primary medical problem this hospitalization is Acute respiratory failure with hypoxia (HCC). Hospital Plan:Medical Management of hypoxia, currently on room air, PT/OT following, pt completed Rocephin. Anticipated Discharge Plan: Home Health (HH) Family/ Caregiver's readiness, willingness and ability to support patient with anticipated community discharge plan: Spoke with family/caregiver(s) (eTrri Keith ), who has/have following concerns related to anticipated discharge plan: daishathao Keith reports that wont work due to not having patient medications or nursing staffover the weekend ) Kevin has requested patient return on Monday IM Letter Documentation, if applicable Medicare Notice Given to Responsible Democrat: Yes, in person Date Form Given to Patient/Responsible Democrat: 08/04/23 Decision Maker / Software Implementation Specialist Information Medical Decision Maker Assessment: Health Care Surrogate appointed by (Comment) Medical Decision Maker, if patient unable: Terri Keith Maira Environmental Compliance Technician/Acoustic Intelligence Specialist Name: Terri Rao New referral(s) for Beam Builder Helper Home Health Agency [WASTE MANAGEMENT RECYCLING TECHNICIAN] Agency Choice(s) ??? [facility] List of Medicare approved HH agencies with quality measures and resource data, serving the patient's geographic area (with any financial affiliations disclosed and/ or in network providers identifiedas applicable) provided to patient / family: Provider who will be signing the ongoing Home Health plan of care: Irving Jeffries MD (Note: at least one PRIMARY service of nursing home, physical therapy or speech is required to meet medical necessity criteria for WASTE MANAGEMENT RECYCLING TECHNICIAN) Home Health Services Needed: nursing home, physical therapy, occupational therapy Anticipated Needs: disease management and education, post hospital rehabilitation services (PT, OT,SP) RIALS SUPERVISOR * Interdisciplinary - Terri Atwood, INSPECTOR HEALTH CARE FACILITIES - 08/04/2023 9:40 AM CST Respiratory Therapy Assessment And Education Points 0 1 2 3 4 Score Pulmonary History No Smoking Smokes <1 ppd Smokes 1 ppd or more Pulmonary impairment (acute or chronic) Severe or Chronic exacerbation 3 Surgical Status None General Surgery Lower Abdominal Surgery Thoracic or Upper Abdominal Surgery Thoracic with Pulmonary Disease 0 CXR (from last 24 hrs) Clear Unavailable Infiltrates, Atelectasis or Pleural effusion Infiltrates in more than 1 lobe Infiltrates plus Atelectasis or Pleural effusion 1 Respirations Regular Pattern, RR 8-20 Increased, RR 21-25 Dyspnea on exertion, irregular pattern, RR 26-30 Use of accessory muscles, prolonged expiration, RR 31-35 Severe SOB with use of accessory muscles, RR >35 0 BS Clear Diminished Unilaterally Diminished Bilaterally Crackles in Bases Wheezing and/or Rhonchi 0 Cough Strong, Non- productive cough Strong, productive cough Weak, Non- productive cough Weak, productive cough No cough, may require suctioning 0 Mental status Alert and oriented Lethargic, follows commands Confused, does not follow commands Obtunded Comatose 0 Level of Activity Ambulatory Ambulatory with assistance Temporarily non-Ambulatory Bed rest, able to position self Bed rest, unable to position self 1 O2 required to keep SpO2 >=92% (or ordered goal) None 1-3 L/M or FiO2 25-35% 4-6 L/M or FiO2 35-50% >50% 100% 0 Total Score 5 Treatment Scoring Guide Frequency Utilize ORDER SET for all changes Severity Level 5 > 20 points Q2 and Q4 Albuterol Q2 and Ipratropium Q4 *Discontinue previous orders* Severity Level 4 16-20 points Q4 and PRN Duoneb Q4 and Albuterol Q2 PRN *Discontinue previous orders* Severity Level 3 11-15 points QID and PRN Duoneb QID and Albuterol Q4 PRN *Discontinue previous orders* Severity Level 2 6-10 points TID and Q6 PRN Albuterol only *Discontinue previous orders* Severity Level 1 0-5 points Q6 PRN Albuterol only *Discontinue previous orders* Home Regimen Home medication orders As per reconciled home medications Patient RTA Severity Level Is: Level 1 Patient Progression Since Admission: significantly improved Treatment Plan Adjusted: Yes Education Documented (within Education Tab): No: Education Provided To: not reviewed Comments: By: TERRI ATWOOD, INSPECTOR HEALTH CARE FACILITIES; 08/04/2023, 9:40 AM MATERIALS SUPERVISOR RIALS SUPERVISOR * Plan of Care - Zully Stokes, PT - 08/04/2023 8:47 AM CST Activity Recommendations: Recommendations for floor staff include up with assist to chair and requires Minimal assist with Gait belt and Two person assist. Activity recommendations communicated with RN. Discharge Recommendations: At discharge it appears that patient would benefit from SNF vs home with home health care pending progress due to difficulty with functional mobility. Therapist discussed this recommendation with RN. DME recommendations include:To be determined Assessment: ??? Significant Physical Therapist findings with this patient include Weakness, Decreased endurance, Decreased strength, Decreased cognition, Impaired balance and Impaired gait that leads to functional limitations including decreased ability to stand from bed or chair, ambulate household distances safely, ascend stairs to access bedroom. ??? This represents a functional decline that requires acute PT intervention. Patient will benefit from Physical Therapy to address these deficits during their hospitalization. ??? Strengths of this patient include Independent prior to admission. ??? Anticipate patient will progress toward stated goals with therapeutic intervention. PT Plan of Care: Date of Initial Evaluation: 08/04/23 Patient to be seen by Physical Therapy 3 to 4 x/week. Physical Therapy to address impairments and functional limitations. Treatments to include: Balance training, Endurance training, Gait, Mobility/Transfers, Neuro re-education, Safety, Stairs and Therex Precautions: Fall and Monitor Vitals Goals to be achieved by: 08/11/23 - Patient will perform supine-sit transfers with Modified Independent to be able to assist with positioning. - Patient will perform sit-stand transfers with least restrictive device and Contact guard assist to be able to assist with positioning. - Patient will ambulate with least restrictive device for 150 feet and Contact guard assist to be able to facilitate patient access to community, including doctor's office. - Patient will ascend/descend 9 stairs with single rail on right when ascending and Contact guard assist to be able to access bedroom or bathroom not on main living level of home. - Patient will improve AM-PAC score to be greater than or equal to 3 points to indicate improved overall daily function. Patient stated goal: not stated Preferred Language Macedonian PHYSICAL THERAPY INITIAL EVALUATION Subjective: I'm doing ok. Pain: R: Number Pain Rating: Rest*: 0 R: Number Pain Rating: Activity*: 0 Home Environment: Patient lives in [facility]. Patient has 9-10 stairs within the home with1 rail(s). Patient lives in longterm. Prior Level of Function: Patient reports ambulating independently and completing ADLs independently prior to admission. Patient reports facility does the cooking and he does cleaning/laundry. Examination: ??? History of present illness: This is a 77 y.o. year old male who was admitted on 07/28/2023 for acute respiratory failure. ??? Relevant PMHx includes: has a past medical history of Arthritis, Prostate cancer (HCC), Schizophrenia (HCC), and Stroke (HCC). ??? Observations: Patient alert and lying on L side in bed. Bp cuff, telemetry, pulse ox intact. Cedillo catheter in place. o2 sats 96% at rest on room air.. ??? Cognition: Patient oriented to self only. Patient reports he is in the hospital, but unsure of which one. Unknown month/year.. ROM: Left Lower Extremity: WFL Right Lower Extremity: WFL Strength: 3/5 B LE grossly ??? Balance o Static sitting balance: fair+ o Dynamic sitting balance: NT o Static standing balance: fair o Dynamic standing balance: poor o Sit to stand dynamic balance: poor Bed Mobility: ? Supine to Sit: Contact guard assist with 1 person using Bed Rails and Head of Bed Elevated . o Bed Mobility Details: CGA for safety due to decreased balance upon initially sitting up Transfers: ? Sit to Stand transfer with Minimal assist and Verbal Cues and 2 person using Gait belt. ? Stand to Sit transfer with Minimal assist and Verbal Cues and 2 person using Gait belt. ? Stand/Pivot transfer with Minimal assist and 2 person using Gait belt. o Transfer Details: Minimal assist x 2 due to decreased balance. L knee appears to buckle and required blocked when weightbearing to advance R LE. Verbal cues to reach for armrest of chair to pivot. ??? Outcome Measure Used. [facility] AM-PAC?6 Clicks?? Basic Mobility Inpatient Short Form How much help from another person does the patient currently need??? 1. Turning from your back to your side while in a flat bed without using bedrails? 3 A Little 2. Moving from lying on your back to sitting on the side of a flat bed without using bedrails? 3 A Little 3. Moving to and from a bed to a chair (including a wheelchair)? 2 A Lot 4. Standing up from a chair using your arms (e.g. wheelchair or bedside chair)? 2 A Lot 5. To walk in hospital room? 1 Unable 6. Climbing 3-5 steps with a railing? 1 Unable Raw Score 12 16 or Less = predictive of discharge to an institutional setting. 17-24 = predictive of discharge to home [facility]. Association of A-PAC ???6 Clicks?? Basic Mobility and Daily Activity Scores with Discharge Destination. PTJ. August 2020 Education Provided: Benefits of PT, safety, call light Eval /Treat Visit and Timing Start Time: 846 Stop Time: 858 Time Calculation (min): 12 min PT Received On: 08/04/23 Type of visit: Evaluation PT Evaluation (Moderate) Time Entry: 12 All charges today are appropriate and separate from each other. Patient left up in chair with alarm on and call light in reach. Next session plan to progress as tolerated. ZULLY N JOSI, PT RIALS SUPERVISOR * Plan of Care - Anali Harkins OT - 08/04/2023 8:46 AM CST Activity Recommendations: Recommendations for floor staff include up with assist and requires Minimal assist x 2 with Gait belt. Activity recommendations communicated with ALPHONSO Vazquez. Discharge Recommendations: At discharge it appears that patient would benefit from D/C to SNF with continued Therapy versus return to [facility] with [facility] OT pending hospital evolution due to impaired balance, strength,endurance, and safety. Therapist discussed this recommendation with ALPHONSO Vazquez. DME recommendations include:To be determined Assessment: ??? Significant occupational therapist findings with this patient include Weakness, Decreased endurance, Decreased strength, Impaired motor control, Impaired balance, Impaired coordination and Impaired gait that leads to functional limitations including decreased ability to complete mobility-related ADLs, such as bathing, dressing, and toileting. ??? This represents a functional decline that requires acute OT intervention. Patient will benefit from occupational therapy to address these deficits during their hospitalization. ??? Strengths of this patient include: [facility]. ??? Anticipate patient will progress fair to well toward stated goals with therapeutic intervention. OT Plan of Care Date of Initial Evaluation: 08/04/23 Patient to be seen by Occupational Therapy 2 to 3 x/week to address impairments and functional limitations. Treatments to include: Self care retraining, Balance training, Cognition, Therapeutic activities, Endurance training, Mobility/Transfers, Safety, Therapeutic exercise and education Precautions: safety, falls, full code, MRSA/RSV Goals to be achieved by: 08/11/23 - Patient will perform lower body dressing with Moderate assist using adaptive equipment as needed to be able to complete independently at discharge. - Patient will perform grooming at Chair with Supervision using adaptive equipment as needed to be able to complete independently at discharge. - Patient will perform toileting with Minimal assist using adaptive equipment as needed to be able to complete independently at discharge. - Patient will perform self care transfers chair and commode with Minimal assist to to be able to perform functional mobility within the home. - Patient will demo fair balance for toileting tasks. - Patient will participate in therapeutic exercise to increase bilateral upper extremity strength and activity tolerance. - Patient will participate in fine and gross motor activities to improve motor planning skills in bilateral upper extremity for dressing. - Patient will improve AM-PAC score to be greater than or equal to 22 points to indicate improved overall daily function. Patient stated goal: Patient did not report. Preferred Language Macedonian Occupational Therapy Initial Evaluation Subjective: Are those my shoes? Pain: R: Number Pain Rating: Rest*: 0 R: Number Pain Rating: Activity*: 0 Home Environment: Patient reports that he lives at [facility]. Patient has been a resident for multiple years. Patient's PLOF discussed with patient and provided by Terri Keith from the [facility] through EMR. Prior Level of Function: Mobility/Transfers: Completed independently Bathing: Completed independently Dressing: Completed independently Grooming: Completed independently Self-Feeding: Completed independently Toileting: Completed independently Homemaking: Patient reports that there is a laundromat and kitchen there. Driving: Patient reports that he walks if he needs to go somewhere. Leisure/Hobbies/Occupation: Patient did not report. Examination: ??? History of present illness: This is a 77 y.o. year old male who was admitted on 07/28/2023 for acute respiratory failure with hypoxia. ??? Relevant past medical history includes: has a past medical history of Arthritis, Prostate cancer (HCC), Schizophrenia (HCC), and Stroke (HCC). ??? Observations/Medical Equipment: Patient was seen bedside. Bed alarm intact. Cedillo in place. Continuous pulse ox, tele, and BP cuff in place. ??? Orientation: Patient oriented to person. Place: [facility]; Time: ?/1024 ??? Commanding: Follows 1-step command, repetition ??? Short term memory: Impaired ??? long-term memory: Impaired ??? Cognition: Patient would benefit from further testing on a future date. Difficult to determine patient's baseline mentation. ??? Safety awareness: Impaired ??? Range of Motion RUE: WFL LUE: WFL ??? Upper Extremity Tone: o No current concerns ??? Strength Bilateral upper extremities: WFL o Comments: 3+/5 BUE grossly; difficult to follow formal assessment commands ??? Bed mobility ? Supine to Sit: Contact guard assist with Set up, Verbal Cues and 1 person using Bed Rails and Head of Bed Elevated . o Bed Mobility Details: Patient completed supine to sit with HOB elevated and use of bedrail. Therapist provided CGA for optimal safety and assist with cedillo. ??? Transfers: ? Sit to Stand transfer with Minimal assist and Set up, Verbal Cues and 2 person using Gait belt. ? Stand to Sit transfer with Minimal assist and Set up, Verbal Cues and 2 person using Gait belt. ? Stand/Pivot transfer with Minimal assist and Set up, Verbal Cues and 2 person using Gait belt. o Transfer Details: Patient completed sit>stand from EOB, stand pivot to the left side to the chair, and stand>sit in chair with minimal assist x 2. Patient demonstrated impaired overall endurance, balance, and safety awareness with task. Patient demonstrated difficulty with weight-shifting and advancing LEs. ??? Sitting balance: o Static: good o Dynamic: unknown ??? Standing balance: o Static: poor o Dynamic: poor ??? Self Cares: o ? Lower Body Dressing: Dependent with donning bilateral socks at this time due to dizziness upon sitting at EOB. ??? Coordination: o Fine motor: - RUE: WFL - LUE: WFL o Gross motor: - RUE: WFL - LUE: WFL ??? Sensation: o RUE: Within functional limits o LUE: Within functional limits ??? Vision: o Patient is not currently wearing glasses and reports no concerns. ??? Endurance: Fair ??? Education completed: Benefits of OT, OT initial evaluation, call light, safety ??? Other items relevant to examination: n/a Outcome Measure: [place] AM-PAC 6 Clicks Daily Activity How much help from another person does the patient currently need ??? 1.Putting on and taking off lower body clothing? 2 A Lot 2. Bathing (including washing, rinsing, drying?) 2 A Lot 3. Toileting, which includes using toilet, bedpan or urinal? 2 A Lot 4. Putting on and taking off regular upper body clothing? 3 A Little 5. Taking care of personal grooming such as brushing teeth? 3 A Little 6. Eating meals? 4 None Raw Score 16 18 or Less= predictive of discharge to institutional setting 19-24 predictive of discharge to home actual discharge disposition may be impacted by other factors Samson Crawley at al. Association of A-PAC ???6 Clicks?? Basic Mobility and Daily Activity Scores with Discharge Destination. PTJ. August 2020 Patient left up in chair with chair alarm on and call light in reach. OT Eval /Treat Visit and Timing Start Time: 08 Stop Time: 0859 Time Calculation (min): 13 min OT Received On: 08/04/23 Type of visit: Evaluation OT Evaluation (Moderate) Time Entry: 13 All charges today are appropriate and separate from each other. Next session plan to increase independence with pivot transfer off/on BSC for increased independence with toileting. ANALI HARKINS OT RIALS SUPERVISOR * Interdisciplinary - Sister Denisa Rob, [facility] - 08/04/2023 8:39 AM MATERIALS SUPERVISOR PHARMACY PROGRESS NOTE: Vancomycin DAY # 02/03 Consulting Physician/Service: Archie Hilario Admit Date: 07/28/2023 Patient Name: Iván Dumont Age: 77 y.o. Sex: male Height: 6' (182.9 cm) Weight: 209 lb 11.2 oz (95.1 kg) Initial Antibiotic Indication: CAP with MRSA+ nares Special population: None Current ABX List Includes: Antibiotic - Name Start Date Stop Date Vancomycin 07/29 ceftriaxone 07/28 08/03 azithromycin 07/28 07/30 Lab Results Component Value Date CREATININE 0.62 (L) 08/04/2023 CREATININE 0.60 (L) 08/03/2023 CREATININE 0.71 08/02/2023 CREATININE 0.69 (L) 08/01/2023 Estimated Creatinine Clearance: 84.9 mL/min (A) (by C-G formula based on SCr of 0.62 mg/dL (L)). Lab Results Component Value Date WBC 12.08 (H) 08/04/2023 WBC 13.51 (H) 08/03/2023 WBC 15.28 (H) 08/02/2023 WBC 13.28 (H) 08/01/2023 PCT 0.09 07/28/2023 NEUT 80.1 (H) 08/04/2023 NEUT 90.4 (H) 08/03/2023 NEUT 91.0 (H) 08/02/2023 NEUT 91.4 (H) 08/01/2023 ANC 9.69 (H) 08/04/2023 ANC 12.21 (H) 08/03/2023 ANC 13.92 (H) 08/02/2023 ANC 12.14 (H) 08/01/2023 Cultures: Limited to Pertinent Results Date Site / Type Organism Pertinent Sensitivities 07/28 Blood x 2 No growth, day 5 07/28 MRSA nasal positive 07/28 Rsp Viral RSV positive 07/31 sputum negative Temp (24 hr max): Temp Av.3 ??F (36.3 ??C) Min: 97.1 ??F (36.2 ??C) Max: 97.5 ??F (36.4 ??C) Recent Vancomycin Dosing: Has patient received Vancomycin within the last 7 days? - No Current Admission Daily Drug Monitoring: Loading Dose (Mg) Date Time CrCl Predicted T1/2 2250mg 07/29 830 84.9 10.3 hr Date CrCl (ml/min) Dose + Interval Level Date Time Level (mcg/mL) True Trough (Y / N / --) Predicted Trough (mcg/ml) Predicted AUC Predicted % toxicity Predicted T1/2 (H) Dose adjustment (Increase/Decrease/None) 07/29 84.9 1250mg q12 13.7 494 9 07/30 84.9 [id number] 07/30 at 0410 13 N 12.8 500 8 8.08 increase 07/31 93.3 (per Insight) 1500 mg q12h 1/2@0800 ordered Y 12.3 488 8 7.76 None 08/01 84.9 1500 mg q12h 1/2 at 0836 12 Y 12.8 500 8 7.88 none 08/02 84.9 [id number] --- --- --- 13.4 516 9 8.1 none 08/03 84.9 1500mg q12h --- -- -- 10.6 441 6 6.91 none 08/04 105.7 (per Insight) 1500 mg q12h -- -- -- 11.1 455 7 7.13 None Monitoring Goals for Vancomycin: AUC 400-600 mg*L/HR Assessment: ?? Patient is on vancomcycin for pneumonia with MRSA+ ?? Culture analysis supporting above antibiotics: YES ?? Potential antibiotic change needed: No ?? Anticipated duration is TBD WBC is: Trending down Temp: afebrile over the last 24 hours SCr is: Stable and is at baseline Daily Scr Ordered: No - last day of therapy, order for daily SCr discontinued UOP: 1.4 mL/kg/hr on 08/04 plus one unmeasured output Dosing / Monitoring Plan: Vancomycin started at 2250mg IV x 1 time loading dose. Vancomycin continued at 1500mg IV every 12 hours based on patient age, weight, renal function and population kinetics. Predicted AUC and trough in the chart above. Above dose was selected for the following reasons: Patient's renal function is stable and has good urine output, so will continue current regimen for a goal AUC with a toxicity of less than 10% and peaks below 40 mcg/mL. No future vancomycin levels, as today is the last day of therapy. Pharmacists will continue to monitor. Thank you for this consult. For questions call [facility] Pharmacy [phone] Sr. Daniela Mota, PharmD 08/04/2023, 8:39 AM MATERIALS SUPERVISOR RIALS SUPERVISOR * Interdisciplinary - Margarita Joaquin RN - 08/04/2023 6:49 AM CST Patient report given to ALPHONSO Vazquez. Patient resting in bed. Patient A&Ox4. Patient turned/repositioned and skin assessed with oncoming RN. Vital Signs per flowsheet. Call light within reach. Bed alarm on. Patient updated to plan of care. No acute distress noted. MARGARITA JOAQUIN RN RIALS SUPERVISOR * Interdisciplinary - Zully Dye [employer] - 08/04/2023 2:12 AM MATERIALS SUPERVISOR Respiratory Therapy Assessment And Education Points 0 1 2 3 4 Score Pulmonary History No Smoking Smokes <1 ppd Smokes 1 ppd or more Pulmonary impairment (acute or chronic) Severe or Chronic exacerbation 3 Surgical Status None General Surgery Lower Abdominal Surgery Thoracic or Upper Abdominal Surgery Thoracic with Pulmonary Disease 0 CXR (from last 24 hrs) Clear Unavailable Infiltrates, Atelectasis or Pleural effusion Infiltrates in more than 1 lobe Infiltrates plus Atelectasis or Pleural effusion 1 Respirations Regular Pattern, RR 8-20 Increased, RR 21-25 Dyspnea on exertion, irregular pattern, RR 26-30 Use of accessory muscles, prolonged expiration, RR 31-35 Severe SOB with use of accessory muscles, RR >35 0 B7 Clear Diminished Unilaterally Diminished Bilaterally Crackles in Bases Wheezing and/or Rhonchi 2 Cough Strong, Non- productive cough Strong, productive cough Weak, Non- productive cough Weak, productive cough No cough, may require suctioning 0 Mental status Alert and oriented Lethargic, follows commands Confused, does not follow commands Obtunded Comatose 0 Level of Activity Ambulatory Ambulatory with assistance Temporarily non-Ambulatory Bed rest, able to position self Bed rest, unable to position self 1 O2 required to keep SpO2 >=92% (or ordered goal) None 1-3 L/M or FiO2 25-35% 4-6 L/M or FiO2 35-50% >50% 100% 0 Total Score 4 Treatment Scoring Guide Frequency Utilize ORDER SET for all changes Severity Level 5 > 20 points Q2 and Q4 Albuterol Q2 and Ipratropium Q4 *Discontinue previous orders* Severity Level 4 16-20 points Q4 and PRN Duoneb Q4 and Albuterol Q2 PRN *Discontinue previous orders* Severity Level 3 11-15 points QID and PRN Duoneb QID and Albuterol Q4 PRN *Discontinue previous orders* Severity Level 2 6-10 points TID and Q6 PRN Albuterol only *Discontinue previous orders* Severity Level 1 0-5 points Q6 PRN Albuterol only *Discontinue previous orders* Home Regimen Home medication orders As per reconciled home medications Patient RTA Severity Level Is: 2 Patient Progression Since Admission: improved Treatment Plan Adjusted: Yes Education Documented (within Education Tab): Yes Education Provided To: patient Comments: RT will continue to monitor. By: ZULLY DYE RRT; 08/04/2023, 2:12 AM MATERIALS SUPERVISOR RIALS SUPERVISOR * Interdisciplinary - Margarita Joaquin RN - 08/03/2023 6:38 PM CST Report received from ALPHONSO Vazquez. Assumed patient care at this time. Patient A&O to self. Vital signs per flowsheet. IV drip rates verified. Call light in reach, alarms on. Patient RASS -1. No acute distress noted. Patient updated to plan of care. MARGARITA JOAQUIN RN RIALS SUPERVISOR * Interdisciplinary - Taylor Colvin RN - 08/03/2023 6:36 PM CST Patient report given to Margarita Joaquin RN. Patient resting in bed. Patient RASS -1. Vital Signs per flowsheet. Call light within reach. Bed alarm on. No acute distress noted. RIALS SUPERVISOR * Plan of Care - Liliana Vargas MS [facility] - 08/03/2023 4:08 PM MATERIALS SUPERVISOR Speech-Language Pathology: Clinical Swallow Evaluation Completed: 08/03/2023 Recommendations: ??? Diet Solids Recommendation: Dysphagia II/IDDSI 5/Moist and Minced ??? Diet Liquids Recommendations: Thin liquids/IDDSI 0 ??? Recommended Form of Meds: Advance as tolerated ??? Feeding Guidelines: o Upright for all oral intake o Slow rate of intake o Remain upright after oral intake o Reduce distractions during meals o Frequent oral care ??? Recommendations communicated with RN ??? Instrumental assessment : not recommended at this time ??? Patient would benefit from: continued skilled intervention and patient/family education Assessment: ??? Within the constraints of a clinical swallowing evaluation, patient presented with minimal clinical evidence of dysphagia this date. Patient presented with suboptimal attention and cognitive/communication that would likely impede safety of oral intake. Recommend resume consistent oral intake wit h modifications and guidelines as detailed above. Patient is at elevated risk for associated adverse effects related to dysphagia/aspiration and continued skilled intervention is warranted at this time. ??? The prognosis for the patient to meet nutritional needs by mouth is good. based on degree of impairment, stimulability for treatment, baseline medical condition. ??? Strongest to weakest predictors of aspiration pneumonia exhibited by this patient are Dependence for feeding, Dependence for oral care, More than one medical diagnosis, Number of medication prescribed, Reduced activity level, Aspiration of food/liquid and GERD(Langmore et al). ??? Silent aspiration cannot be excluded clinically. If concern for silent aspiration, please referfor modified barium swallow study. History: HPI: Patient presented to ED on 07/28/2023 with initial complaint for SOB and palpitations x2-3 days. Upon arrival, patient was found to be hypoxic, in atrial fibrillation with RVR, tested positive for RSV and bilateral infiltrates found in initial chest xray. Initial work up for sepsis, RSV pneumonia. Patient was transferred to ICU due to increased oxygen needs and was subsequently intubated on 07/29 with extubation on 08/02/23. Initial clinical swallowing evaluation attempted on 08/02/23 without success due to poor level of alertness. PMH: Patient has a past medical history of Arthritis, Prostate cancer (HCC), Schizophrenia (HCC), and Stroke (HCC). remote smoking history Previous Speech Pathology intervention: none prior to this admit Subjective: Order received for clinical swallow eval due to prolonged intubation. Chart review completed, reviewed patient status with nursing, October, to obtain permission for PO trials. Current Hospital Diet: NPO, No liquids Examination: ??? Patient/Family report: Patient was reclined in bed and easily woke to verbal stimuli. Patient agreed to cooperate this visit ??? Patient/Caregiver Goal or Patient Reported Outcome: none reported Oral Motor: ??? Patient exhibited without evidence of structural abnormality or strength deficit during the oral [facility] exam ??? Dentition: Edentulous ??? Oral mucosa: intact ??? Facial Symmetry: intact ??? Lingual ROM/Strength: intact ??? Respiratory Status: NC in place ??? History of recent intubation: Yes- see above details Orientation/Communication: Due to correlation of orientation and swallow status, the patient was asked open ended orientation questions. Patient accurately answered with 60% accuracy when provided with maximum assist from clinician. Patient demonstrated ability to communicate at simple conversational level, good turntaking and intact speech intelligibility. Clinical Swallow Examination: ??? Patient level of assist required: Moderate Assist, ??? Positioning: patient independently repositioned self in bed ??? Liquid/Solid Trials: ice chips, thin liquids, Puree/IDDSI 4 and Regular diet/IDDSI 7 ??? Oral Phase Characteristics: intact labial seal, appearance of incomplete mastication of solids and trace residue lining oral structures ??? Pharyngeal phase characteristics: no suspected pharyngeal impairment Objective Outcome Measures: To screen for aspiration, the [place] Swallow Protocol was attempted due its high reliability and sensitivity. Patient PASSED aspiration screen. Patient completed consecutive sip/swallow of three ounceswithout stopping or difficulty. The false negative rate for this water swallow challenge is 6.9%. Since the patient did not exhibit evidence of impairment indicative of no/minimal aspiration risk perprotocol. (Brandyn et al. (2011), Mike Ahumada, Ayesha Marcus. & [address]agan [address]. (2011) The Yu Assessment of Swallowing Ability (MASA) was utilized to assess the patient's overall swallowing function. Alertness: 10-alert Cooperation: 8-fluctuating cooperation Auditory Comprehension: 6-follows simple commands Respiration: 2-chest infection Respiratory Rate for Swallow: 5-able to control rate for swallow Aphasia: 5-no deficits Apraxia: 5-no deficits Dysarthria: 5-no deficits Saliva: 5-no deficits Lip Seal: 5-no deficits Tongue Movement: 10-full range Tongue Strength: 10-no deficits noted Tongue Coordination: 10-no deficits noted Oral Prep: 10-no deficits noted Ga-no deficits noted Palate: 10-no deficits noted Bolus Clearance: 8-significant clearance/minimal residue present Oral Transit: 10-no deficits noted Cough Reflex: 5-no deficits noted Voluntary Cough: 10-no deficits noted Voice: 10-no deficits noted Trach: 10-no trach Pharyngeal Phase: 10-immediate laryngeal elevation Pharyngeal Response: 10-no deficits noted MASA Score: 184/200 MASA Dysphagia Severity Score: Nil abnormality detected (178-200) MASA Aspiration Risk Score: NIL ABNORMALITY DETECTED 170-200 Education: SAMPLE MAKER ORIGINAL provided skilled verbal instruction to patient regarding rationale for skilled services, evaluation performance, patient specific risk factors for adverse effects related to dysphagia/aspiration,compensatory strategies and/or precautions and recommended guidelines. Patient did not demonstrate evidence of learning Alerted nursing to evaluation performance and recommendations for care. Sign posted at bedside withfeeding guidelines with patient permission. Patient was reclined in bed with call light near. If this is the last Speech Therapy visit, please refer to this note as the discharge summary. Thank you for your referral. LILIANA VARGAS MS CCC-S[employer] MA[employer]IGINAL Speech Language Pathologist 08/03/2023 Visit Timing/Type Start Time: 1540 Stop Time: 1607 Time Calculation (min): 27 min Time Calculation Comment: SFE SAMPLE MAKER ORIGINAL Received On: 08/03/23 Type of visit: Evaluation Evaluation Type for Bilmin: Clinical Eval Swallowing Function Clinical Swallow Eval Time Entry: 27 SAMPLE MAKER ORIGINAL Frequency: 5 sessions a week Speech Therapy Plan of Care Patient to be seen by Speech Therapy up to five days per week to address impairments and functionallimitations. Treatments to include:education and facilitation of compensatory strategies Preferred Language: Macedonian Goals to be achieved by: discharge Precautions: full code, falls, safety, aspiration 1- Patient to consume modified diet/liquid consistencies without evidence of adverse effects related to dysphagia/aspiration. 2- SAMPLE MAKER ORIGINAL to provide skilled instruction to patient/family/staff regarding recommendations, precautions and strategies to promote health literacy, safety and discharge planning. 3- Sabianist of oral nutrition/hydration with optimal safety, adequacy and enjoyment. RIALS SUPERVISOR * Plan of Care - Jimbo Padilla OT - 08/03/2023 2:47 PM CST Attempted to see patient for OT evaluation. He was unable to follow commands. Will attempt at a later date/time. JIMBO PADILLA OT RIALS SUPERVISOR * Plan of Care - Liliana Vargas MS CCC-[employer] - 08/03/2023 11:09 AM MATERIALS SUPERVISOR Speech Pathology Attempted to see patient for clinical swallow evaluation. Patient was awake and oriented to self. Patient verbally declined x2. SAMPLE MAKER [employer]IGINAL requested nursing to contact clinician when patient is cooperative. By: LILIANA VARGAS, MS CCC-S[employer]IGINAL; 08/03/2023, 11:10 AM MATERIALS SUPERVISOR RIALS SUPERVISOR * Interdisciplinary - Efra Lai, [facility] - 08/03/2023 11:01 AM CST PHARMACY PROGRESS NOTE: Vancomycin DAY # 6 Consulting Physician/Service: Archie Hilario Admit Date: 07/28/2023 Patient Name: Iván Dumont Age: 77 y.o. Sex: male Height: 6' (182.9 cm) Weight: 209 lb 11.2 oz (95.1 kg) Initial Antibiotic Indication: CAP with MRSA+ nares Special population: None Current ABX List Includes: Antibiotic - Name Start Date Stop Date Vancomycin 07/29 ceftriaxone 07/28 08/03 azithromycin 07/28 07/30 Lab Results Component Value Date CREATININE 0.60 (L) 08/03/2023 CREATININE 0.71 08/02/2023 CREATININE 0.69 (L) 08/01/2023 CREATININE 0.70 07/31/2023 Estimated Creatinine Clearance: 84.9 mL/min (A) (by C-G formula based on SCr of 0.6 mg/dL (L)). Lab Results Component Value Date WBC 13.51 (H) 08/03/2023 WBC 15.28 (H) 08/02/2023 WBC 13.28 (H) 08/01/2023 WBC 11.32 07/31/2023 PCT 0.09 07/28/2023 NEUT 90.4 (H) 08/03/2023 NEUT 91.0 (H) 08/02/2023 NEUT 91.4 (H) 08/01/2023 NEUT 94.9 (H) 07/31/2023 ANC 12.21 (H) 08/03/2023 ANC 13.92 (H) 08/02/2023 ANC 12.14 (H) 08/01/2023 ANC 10.75 (H) 07/31/2023 Cultures: Limited to Pertinent Results Date Site / Type Organism Pertinent Sensitivities 07/28 Blood x 2 No growth, day 5 07/28 MRSA nasal positive 07/28 Rsp Viral RSV positive 07/31 sputum negative Temp (24 hr max): Temp Av.1 ??F (36.2 ??C) Min: 96.7 ??F (35.9 ??C) Max: 97.4 ??F (36.3 ??C) Recent Vancomycin Dosing: Has patient received Vancomycin within the last 7 days? - No Current Admission Daily Drug Monitoring: Loading Dose (Mg) Date Time CrCl Predicted T1/2 2250mg 07/29 830 84.9 10.3 hr Date CrCl (ml/min) Dose + Interval Level Date Time Level (mcg/mL) True Trough (Y / N / --) Predicted Trough (mcg/ml) Predicted AUC Predicted % toxicity Predicted T1/2 (H) Dose adjustment (Increase/Decrease/None) 07/29 84.9 1250mg q12 13.7 494 9 07/30 84.9 [id number] 07/30 at 0410 13 N 12.8 500 8 8.08 increase 07/31 93.3 (per [facility]ight) 1500 mg q12h /@0800 ordered Y 12.3 488 8 7.76 None 08/01 84.9 1500 mg q12h 1/2 at 0836 12 Y 12.8 500 8 7.88 none 08/02 84.9 [id number] --- --- --- 13.4 516 9 8.1 none 08/03 84.9 1500mg q12h --- -- -- 10.6 441 6 6.91 none Monitoring Goals for Vancomycin: AUC 400-600 mg*L/HR Assessment: ?? Patient is on vancomcycin for pneumonia with MRSA+ ?? Culture analysis supporting above antibiotics: YES ?? Potential antibiotic change needed: No ?? Anticipated duration is TBD WBC is: Trending down - on steroids Temp: afebrile over the last 24 hours SCr is: Stable and is at baseline Daily Scr Ordered: Yes UOP: 1.6 mL/kg/hr on 08/03 Dosing / Monitoring Plan: Vancomycin started at 2250mg IV x 1 time loading dose. Vancomycin continued at 1500mg IV every 12 hours based on patient age, weight, renal function and population kinetics. Predicted AUC and trough in the chart above. Above dose was selected for the following reasons: Patient's renal function is stable and has good urine output, so will continue current regimen for a goal AUC with a toxicity of less than 10% and peaks below 40 mcg/mL. Vancomycin level pending duration, last day 08/04 Pharmacists will continue to monitor. Thank you for this consult. For questions call [facility] Pharmacy [phone] Efra Lai, PharmD 08/03/2023, 11:01 AM MATERIALS SUPERVISOR RIALS SUPERVISOR * Interdisciplinary - Migdalia Green RD - 08/03/2023 8:39 AM CST ASSESSMENT: Nutrition Assessment triggered by: RD consult tube feeding recommendation. Nutrition risk screen tube feeding or parenteral nutrition. 08/02/23 Extubated and OGT feeding stopped ?? PROBLEM:??Increased nutrient needs,??related to &??evidenced by infection & intubation. ?? Principal Problem:??Acute respiratory failure with hypoxia (HCC)? Past Medical History:? Past Medical History Positives Diagnosis Date ??? Arthritis ? Prostate cancer (HCC) ? Schizophrenia (HCC) ? Stroke (HCC) ? Diet:??NPO Chew/swallow:??SAMPLE MAKER [employer]IGINAL evaluation attempted but patient unable to participate 08/02/22. Planned follow-up. Intake Adequacy:??NPO Skin/Wound:??Intact Last BM: 08/02/22 Edema: 2+ hand [place] result: 13 with probably inadequate nutrition on risk assessment Labs noted:??Na+ 138, K+ 4.9, Bun 25, creatinine .71, albumin 3.4, GFR >60, glucose 146 Education needs:??not indicated ?? Height:? Ht Readings from Last 1 Encounters: 07/28/23 6' (1.829 m) ?Weight: ??Admit wt 205# ? Wt Readings from Last 1 Encounters: 08/03/22 07/28/23 209.7 lb 208 lb 8 oz (94.6 kg) BMI: ??Body mass index is 28.28 kg/m??.? BMI weight range for height:??143-183# Adjusted weight: 186# EMR wt hx: 207# -02/02/2023 ([facility]) 206# 9oz -12/05/2022 ([facility]) 204# -12/06/2021 ([facility] ?? ESTIMATED: Calories:??2500 (30kcal/kg/adjbw) Protein:?105 (1.2g/kg/adjbw)) Fluid:??2500 ml ?? GOAL:??nutrition adequacy ?? INTERVENTION:??Extubated 08/02/22 and OGTF stopped. Planned S[employer]ER [employer]IGINAL evaluation prior to diet advancement.Oral supplements indicated on diet advancement. Admission for SOB and palpitations. Hypoxic on arrival. RSV and bacterial MRSA pneumonia. Required intubated 07/30/23. OGTF initiated and tolerated while on tube feeding. ?? Reassess 08/07/22 By: MIGDALIA GREEN RD; 08/03/2023, 8:46 AM MATERIALS SUPERVISOR RIALS SUPERVISOR RIALS SUPERVISOR * Interdisciplinary - Margarita Joaquin RN - 08/03/2023 6:57 AM CST Patient report given to ALPHONSO Vazquez. Patient resting in bed. Patient A&O to self. Patient turned/repositioned and skin assessed with oncoming RN. Vital Signs per flowsheet. Call light within reach.Bed alarm on. Patient updated to plan of care. No acute distress noted. MARGARITA JOAQUIN RN RIALS SUPERVISOR * Interdisciplinary - Margarita Joaquin RN - 08/02/2023 6:57 PM CST Report received from ALPHONSO Peoples. Assumed patient care at this time. Patient A&Ox1. Patient turned/repositioned and skin assessed with off going RN. Vital signs per flowsheet. IV drip rates verified. Call light in reach, alarms on. No acute distress noted. Patient updated to plan of care. MARGARITA JOAQUIN RN RIALS SUPERVISOR * Interdisciplinary - Rosetta Nolasco RN - 08/02/2023 6:38 PM CST Patient report given to ALPHONSO Hilton. Patient resting in bed. Patient A&Ox 1. Vital Signs per flowsheet. Call light within reach. Bed alarm on. Patient updated to plan of care. No acute distress noted. ROSETTA NOLASCO RN RIALS SUPERVISOR * Interdisciplinary - Rosetta Nolasco RN - 08/02/2023 4:25 PM CST Patient became more aggravated. Masetti informed and Precidex ordered. RIALS SUPERVISOR * Plan of Care - Liliana Vargas MS CCC-SAMPLE MAKER ORIGINAL - 08/02/2023 3:55 PM MATERIALS SUPERVISOR Speech Pathology Order received for clinical swallowing evaluation s/p 5 day intubation. Reviewed patient status with nursingRichelle. Upon arrival to room, patient was intermittently awake, restless and not alert to task. Patient didnot respond to questions or cold food bolus to lips. Alerted nursing and Dr. Ny to attempt and plan to see on 08/03/23 Recommend continued NPO with crushed meds in puree if/when alert. By: LILIANA VARGAS MS CCC-SAMPLE MAKER ORIGINAL; 08/02/2023, 3:59 PM MATERIALS SUPERVISOR RIALS SUPERVISOR RIALS SUPERVISOR * Tena - Ariane Mccartney - 08/02/2023 2:30 PM CST Case Management Patient / Patient Multiple Games Dealer Contact Note Iván Thornton 's readmission risk level (if calculated) is: 1-Low Patient Class: Inpatient Consecutive Inpatient Midnights 5 Actual day(s) of hospital stay (compare to working DRG):5 New Consult for Case Management? No Summary: Patient was extubated. Patient discharge plan to be determined pending PT/OT evaluation. Plan of Care:(Problem/ situation/ barrier + goals/ milestones + interventions + evaluation of progress = Plan of Care) Iván Thornton 's primary medical problem this hospitalization is Acute respiratory failure with hypoxia (HCC). Hospital Plan:PT/OT,discharge planning. Anticipated Discharge Plan: Home Family/ Caregiver's readiness, willingness and ability to support patient with anticipated community discharge plan: Did not speak with family/caregiver during this contact. IM Letter Documentation, if applicable N/A - Payor is not Medicare Decision Maker / Software Implementation Specialist Information Medical Decision Maker Assessment: Health Care Surrogate appointed by (Comment) Medical Decision Maker, if patient unable: Terri Rao Environmental Compliance Technician/Acoustic Intelligence Specialist Name: Terri Rao No new referrals for Beam Builder Helper at this time. RIALS SUPERVISOR * Tena - Naina Chu RN - 08/02/2023 1:[address] Villa with Urology here to evaluate pt, inserted 18 fr Coude cath, returned 1200ml of clear yellowurine. Pt tolerated well, Dr Villa states that cedillo cath should remain in for 2-3 days and to provide tension on catheter if blood is noted in urine (to prevent bleeding in urethra from backing up into the bladder). RIALS SUPERVISOR * Tena - Efra Lai [facility] - 08/02/2023 10:15 AM CST PHARMACY PROGRESS NOTE: Vancomycin DAY # 5 Consulting Physician/Service: Archie Hilario Admit Date: 07/28/2023 Patient Name: Iván Dumont Age: 77 y.o. Sex: male Height: 6' (182.9 cm) Weight: 208 lb 8 oz (94.6 kg) Initial Antibiotic Indication: CAP with MRSA+ nares Special population: None Current ABX List Includes: Antibiotic - Name Start Date Stop Date Vancomycin 07/29 ceftriaxone 07/28 08/03 azithromycin 07/28 07/30 Lab Results Component Value Date CREATININE 0.71 08/02/2023 CREATININE 0.69 (L) 08/01/2023 CREATININE 0.70 07/31/2023 CREATININE 0.73 07/30/2023 Estimated Creatinine Clearance: 84.9 mL/min (by C-G formula based on SCr of 0.71 mg/dL). Lab Results Component Value Date WBC 15.28 (H) 08/02/2023 WBC 13.28 (H) 08/01/2023 WBC 11.32 07/31/2023 WBC 17.90 (H) 07/30/2023 PCT 0.09 07/28/2023 NEUT 91.0 (H) 08/02/2023 NEUT 91.4 (H) 08/01/2023 NEUT 94.9 (H) 07/31/2023 NEUT 86.9 (H) 07/30/2023 ANC 13.92 (H) 08/02/2023 ANC 12.14 (H) 08/01/2023 ANC 10.75 (H) 07/31/2023 ANC 15.56 (H) 07/30/2023 Cultures: Limited to Pertinent Results Date Site / Type Organism Pertinent Sensitivities 07/28 Blood x 2 No growth, day 3 07/28 MRSA nasal positive 07/28 Rsp Viral RSV positive 07/31 sputum negative Temp (24 hr max): Temp Av.8 ??F (36.6 ??C) Min: 97.2 ??F (36.2 ??C) Max: 98.2 ??F (36.8 ??C) Recent Vancomycin Dosing: Has patient received Vancomycin within the last 7 days? - No Current Admission Daily Drug Monitoring: Loading Dose (Mg) Date Time CrCl Predicted T1/2 2250mg 07/29 830 84.9 10.3 hr Date CrCl (ml/min) Dose + Interval Level Date Time Level (mcg/mL) True Trough (Y / N / --) Predicted Trough (mcg/ml) Predicted AUC Predicted % toxicity Predicted T1/2 (H) Dose adjustment (Increase/Decrease/None) 07/29 84.9 1250mg q12 13.7 494 9 07/30 84.9 [id number] 07/30 at 0410 13 N 12.8 500 8 8.08 increase 07/31 93.3 (per Insight) 1500 mg q12h 1/2@0800 ordered Y 12.3 488 8 7.76 None 08/01 84.9 1500 mg q12h 1/2 at 0836 12 Y 12.8 500 8 7.88 none 08/02 84.9 [id number] --- --- --- 13.4 516 9 8.1 none Monitoring Goals for Vancomycin: AUC 400-600 mg*L/HR Assessment: ?? Patient is on vancomcycin for pneumonia with MRSA+ ?? Culture analysis supporting above antibiotics: YES ?? Potential antibiotic change needed: No ?? Anticipated duration is TBD WBC is: Trending up - on steroids Temp: afebrile over the last 24 hours SCr is: Stable and is at baseline Daily Scr Ordered: Yes UOP: 0.7 mL/kg/hr on 08/01 Dosing / Monitoring Plan: Vancomycin started at 2250mg IV x 1 time loading dose. Vancomycin continued at 1500mg IV every 12 hours based on patient age, weight, renal function and population kinetics. Predicted AUC and trough in the chart above. Above dose was selected for the following reasons: Patient's renal function is stable and has good urine output, so will continue current regimen for a goal AUC with a toxicity of less than 10% and peaks below 40 mcg/mL. Vancomycin level pending duration Pharmacists will continue to monitor. Thank you for this consult. For questions call [facility] Pharmacy [phone] Efra Lai, [place] 08/02/2023, 10:15 AM MATERIALS SUPERVISOR RIALS SUPERVISOR * Plan of Care - Sj Cortes RN - 08/02/2023 7:43 AM CST Problem: Adult Inpatient Plan of Care Goal: Plan of Care Review Outcome: Ongoing (see interventions/notes) Flowsheets Taken 08/02/2023 0740 by SJ Outcome Evaluation: Patient remains intubated and sedated. Versed gtt continues. cedillo removed. tube feeding continues. vitals stable. patient passed breathing trial on . plans to extubate patient today. Taken 08/01/2023 0522 by SJ Plan of Care Reviewed With: patient Today's Goal: Decrease peep to 5 this shift. Taken 07/29/2023 1834 by AMY Progress: improving Does the patient need assistance with discharge and/or transitioning to the next level of care?: Yes, case management already following Goal: Patient-Specific Goal (Individualized) Outcome: Ongoing (see interventions/notes) Goal: Absence of Hospital-Acquired Illness or Injury Outcome: Ongoing (see interventions/notes) Goal: Optimal Comfort and Wellbeing Outcome: Ongoing (see interventions/notes) Goal: Readiness for Transition of Care Outcome: Ongoing (see interventions/notes) Problem: Fall Injury Risk Goal: Absence of Fall and Fall-Related Injury Outcome: Ongoing (see interventions/notes) Problem: Gas Exchange Impaired Goal: Optimal Gas Exchange Outcome: Ongoing (see interventions/notes) Problem: Mechanical Ventilation Invasive Goal: Effective Communication Outcome: Ongoing (see interventions/notes) Goal: Optimal Device Function Outcome: Ongoing (see interventions/notes) Goal: Mechanical Ventilation Liberation Outcome: Ongoing (see interventions/notes) Goal: Optimal Nutrition Delivery Outcome: Ongoing (see interventions/notes) Goal: Absence of Device-Related Skin and Tissue Injury Outcome: Ongoing (see interventions/notes) Goal: Absence of Ventilator-Induced Lung Injury Outcome: Ongoing (see interventions/notes) RIALS SUPERVISOR * Sj Jamison RN - 08/01/2023 7:00 PM CST Report received from ALPHONSO Rodriguez. Assumed patient care at this time. Patient remains intubated and sedated. Vital signs per flowsheet. IV drip rates verified. Bed alarms on. No acute distress noted. BSSR completed and 2 RN skin assessment completed. Patient turned and repositioned. RIALS SUPERVISOR * Mariza Oconenll RN - 08/01/2023 4:35 PM CST Notified bedside nurse via secure chat asking if extubating today. Will continue to monitor MARIZA MO RN, 08/01/2023, 4:35 PM MATERIALS SUPERVISOR RIALS SUPERVISOR * Ariane Heller - 08/01/2023 12:33 PM CST Case Management Patient / Patient Multiple Games Dealer Contact Note Iván lennon readmission risk level (if calculated) is: 1-Low Patient Class: Inpatient Consecutive Inpatient Midnights 4 Actual day(s) of hospital stay (compare to working DRG):4 New Consult for Case Management? No Summary: Patient discharge plan unknown due to patient being intubated and sedate. Plan of Care:(Problem/ situation/ barrier + goals/ milestones + interventions + evaluation of progress = Plan of Care) Iván Thornton 's primary medical problem this hospitalization is Acute respiratory failure with hypoxia (HCC). Hospital Plan:Breathing trials, trap setter following, Rocephin, and Vanc. Anticipated Discharge Plan: Home Family/ Caregiver's readiness, willingness and ability to support patient with anticipated community discharge plan: Did not speak with family/caregiver during this contact. IM Letter Documentation, if applicable Medicare Notice Given to Responsible Democrat: Yes, in person Date Form Given to Patient/Responsible Democrat: 07/28/23 Decision Maker / Software Implementation Specialist Information Medical Decision Maker Assessment: Health Care Surrogate appointed by (Comment) Medical Decision Maker, if patient unable: Terri Rao Environmental Compliance Technician/Acoustic Intelligence Specialist Name: Terri Rao No new referrals for Beam Builder Helper at this time. RIALS SUPERVISOR * Tena - Jennifer Escalante - 08/01/2023 12:10 PM CST Patient completed 90 min SBT. DSI also tolerated well. Sedation restarted at half per Dr. Hilario. RIALS SUPERVISOR * Tena - Efra Lai [facility] - 08/01/2023 10:40 AM CST PHARMACY PROGRESS NOTE: Vancomycin DAY # 4 Consulting Physician/Service: Acrhie Hilario Admit Date: 07/28/2023 Patient Name: Iván Dumont Age: 77 y.o. Sex: male Height: 6' (182.9 cm) Weight: 208 lb 8 oz (94.6 kg) Initial Antibiotic Indication: CAP with MRSA+ nares Special population: None Current ABX List Includes: Antibiotic - Name Start Date Stop Date Vancomycin 07/29 ceftriaxone 07/28 08/03 azithromycin 07/28 07/30 Lab Results Component Value Date CREATININE 0.69 (L) 08/01/2023 CREATININE 0.70 07/31/2023 CREATININE 0.73 07/30/2023 CREATININE 0.77 07/29/2023 Estimated Creatinine Clearance: 84.9 mL/min (A) (by C-G formula based on SCr of 0.69 mg/dL (L)). Lab Results Component Value Date WBC 13.28 (H) 08/01/2023 WBC 11.32 07/31/2023 WBC 17.90 (H) 07/30/2023 WBC 15.96 (H) 07/29/2023 PCT 0.09 07/28/2023 NEUT 91.4 (H) 08/01/2023 NEUT 94.9 (H) 07/31/2023 NEUT 86.9 (H) 07/30/2023 NEUT 89.8 (H) 07/29/2023 ANC 12.14 (H) 08/01/2023 ANC 10.75 (H) 07/31/2023 ANC 15.56 (H) 07/30/2023 ANC 14.32 (H) 07/29/2023 Cultures: Limited to Pertinent Results Date Site / Type Organism Pertinent Sensitivities 07/28 Blood x 2 No growth, day 3 07/28 MRSA nasal positive 07/28 Rsp Viral RSV positive Temp (24 hr max): Temp Av.3 ??F (36.3 ??C) Min: 96.8 ??F (36 ??C) Max: 97.8 ??F (36.6 ??C) Recent Vancomycin Dosing: Has patient received Vancomycin within the last 7 days? - No Current Admission Daily Drug Monitoring: Loading Dose (Mg) Date Time CrCl Predicted T1/2 2250mg 07/29 830 84.9 10.3 hr Date CrCl (ml/min) Dose + Interval Level Date Time Level (mcg/mL) True Trough (Y / N / --) Predicted Trough (mcg/ml) Predicted AUC Predicted % toxicity Predicted T1/2 (H) Dose adjustment (Increase/Decrease/None) 07/29 84.9 1250mg q12 13.7 494 9 07/30 84.9 [id number] 07/30 at 0410 13 N 12.8 500 8 8.08 increase 07/31 93.3 (per Insight) 1500 mg q12h 1/2@0800 ordered Y 12.3 488 8 7.76 None 08/01 84.9 1500 mg q12h / at 0836 12 Y 12.8 500 8 7.88 none Monitoring Goals for Vancomycin: AUC 400-600 mg*L/HR Assessment: ?? Patient is on vancomcycin for pneumonia with MRSA+ ?? Culture analysis supporting above antibiotics: YES ?? Potential antibiotic change needed: No ?? Anticipated duration is TBD WBC is: Trending up - on steroids Temp: afebrile over the last 24 hours SCr is: Stable and is at baseline Daily Scr Ordered: Yes UOP: 0.7 mL/kg/hr on 08/01 Dosing / Monitoring Plan: Vancomycin started at 2250mg IV x 1 time loading dose. Vancomycin continued at 1500mg IV every 12 hours based on patient age, weight, renal function and population kinetics. Predicted AUC and trough in the chart above. Above dose was selected for the following reasons: Patient's renal function is stable and has good urine output, so will continue current regimen for a goal AUC with a toxicity of less than 10% and peaks below 40 mcg/mL. Vancomycin level pending duration Pharmacists will continue to monitor. Thank you for this consult. For questions call [facility] Pharmacy [phone] Sr. Daniela Mota PharmD 08/01/2023, 10:40 AM MATERIALS SUPERVISOR RIALS SUPERVISOR * Interdisciplinary - Migdalia Green RD - 08/01/2023 8:25 AM CST ASSESSMENT: Nutrition Assessment triggered by: RD consult tube feeding recommendation. Nutrition risk screen tube feeding or parenteral nutrition. ?? PROBLEM: Increased nutrient needs, related to & evidenced by infection & intubation. ?? Principal Problem: Acute respiratory failure with hypoxia (HCC) ?? Past Medical History: Past Medical History Positives Diagnosis Date ??? Arthritis ? Prostate cancer (HCC) ? Schizophrenia (HCC) ? Stroke (HCC) ? Diet: DIET NPO EFFECTIVE NOW Current OGTF: Vital AF 1.2, target rate 60ml/hour, 75 ml flush each 4 hours Chew/swallow: SAMPLE MAKER ORIGINAL on extubation, or per protocol Intake Adequacy: NPO IV's: meds Skin/Wound: none Labs noted: Na+ 141, K+ 4.7, Bun 36, creatinine .69, albumin 3.1, GFR >60, glucose 158 Meds noted: IV-vanco/rocephin/solumdefrol,versed, protonix Education needs: not indicated ?? Height: Ht Readings from Last 1 Encounters: 07/28/23 6' (1.829 m) Weight: Admit wt 205# Wt Readings from Last 1 Encounters: 07/28/23 208 lb 8 oz (94.6 kg) BMI: Body mass index is 28.28 kg/m??. BMI weight range for height: 143-183# EMR wt hx: 207# -02/02/2023 ([facility]) 206# 9oz -12/05/2022 ([facility]) 204# -12/06/2021 ([facility] ?? ESTIMATED: (critical care guidelines, based on 90kg) Calories: 2200 (25kcal/kg) Protein: 108-135gm (1.2-1.5gl/kg) Fluid: 2200ml ?? GOAL: nutrition adequacy ?? INTERVENTION: Admission for SOB and palpitations. Hypoxic on arrival. Required intubated 07/30/23. OGTF initiated. Presently tolerating and provisions as below. Will increased Vital AF 1.2 to 70 ml per hour to better meet assessed calorie needs. Increased free water flush to 75 ml each 4 hours. ?? Vital AF 1.2 at 70 ml per hour provides: 1680 ml product, 2016 calories, 126 grams protein, 184 grams carbohydrate, 8 grams fiber, 3763 mg K+, 1362 ml water. Flush 75 ml each 4 hours. Provides 2130 total fluid tube feeding and flush and 1800 ml free fluid tube feeding and flush. Reassess 08/03/22 RIALS SUPERVISOR * Interdisciplinary - Sj Cortes RN - 08/01/2023 7:00 AM CST Patient report given to ALPHONSO Rodriguez. Patient resting in bed. Patient remains intubated and sedated. Vital Signs per flowsheet.Bed alarm on. No acute distress noted. Versed gtt Continues. New iv site obtained. SJ CORTES RN RIALS SUPERVISOR * Plan of Care - Sj Cortes RN - 08/01/2023 5:33 AM CST Problem: Adult Inpatient Plan of Care Goal: Plan of Care Review Outcome: Ongoing (see interventions/notes) Flowsheets Taken 08/01/2023 0522 by SJ Plan of Care Reviewed With: patient Today's Goal: Decrease peep to 5 this shift. Outcome Evaluation: Patient remains intubated and sedated. Versed gtt continues. Cedillo patent. Tubefeed adjustments made on dayshift. assessment as noted. scds and heel protectors on. patient repositioned. vitals stable. Patient converted to sinus tachycardia this am. remain on contact and dropletprecautions. Caregivers updated during shift changes last night. Taken 07/29/2023 1834 by AMY Progress: improving Does the patient need assistance with discharge and/or transitioning to the next level of care?: Yes, case management already following Goal: Patient-Specific Goal (Individualized) Outcome: Ongoing (see interventions/notes) Goal: Absence of Hospital-Acquired Illness or Injury Outcome: Ongoing (see interventions/notes) Goal: Optimal Comfort and Wellbeing Outcome: Ongoing (see interventions/notes) Goal: Readiness for Transition of Care Outcome: Ongoing (see interventions/notes) RIALS SUPERVISOR * Rosetta Kaur RN - 07/31/2023 7:05 PM CST Patient report given to ALPHONSO Blancas. Patient resting in bed ventilated and sedated. Vital Signs per flowsheet. Call light within reach. Bed alarm on. Patient updated to plan of care. No acute distress noted. ROSETTA NOLASCO RN RIALS SUPERVISOR * Sj Jamison RN - 07/31/2023 7:00 PM CST Report received from ALPHONSO Peoples. Assumed patient care at this time. Patient remains intubated and sedated. Vital signs per flowsheet. IV drip rates verified.alarms on. Patient's caregivers updated to plan of care. BSSR completed and 2 RN skin assessment completed. Patient turned and repositioned. Patient very restless during turning and attempting to pull out ett. Versed gtt titrated up. RIALS SUPERVISOR * [facility] 07/31/2023 3:23 PM MATERIALS SUPERVISOR Clinical Pharmacy Note: Re: DSI ( Daily Sedation Interruption) Patient on the following sedation/analgesia infusion:(list below) Midazolam at 10 mg/hr DSI NOT completed because: Patient has the following exclusion criteria for DSI : [] Receiving continuous or intermittent sedatives for seizures or drug withdrawal or active post-arrest hypothermia/ ICP control [] Open chest/abdomen [] Chemically paralyzed [] ICP greater than 15 [] On Oscillator / ECMO [] RASS still greater than + 2 ( unable to control agitation despite sedative infusion) [] Escalating PEEP or greater than 10 [] Patient proning /being proned Other : [] Patient does not have exclusion criteria for DSI listed above: Attending / Pulm fellow / Bedside RN - aware and the plan to do DSI now /soon. [x] Patient does not have exclusion criteria for DSI listed above but Provider exclusion is that hewould like the patient to rest today and does not want one performed. Pharmacy Review Complete SISTER Denisa MOTA, [facility] 07/31/2023, 3:23 PM MATERIALS SUPERVISOR RIALS SUPERVISOR * Interdisciplinary - Sister Denisa Rob, [facility] - 07/31/2023 10:58 AM MATERIALS SUPERVISOR PHARMACY PROGRESS NOTE: Vancomycin DAY # 3 Consulting Physician/Service: Archie Hilario Admit Date: 07/28/2023 Patient Name: Iván Dumont Age: 77 y.o. Sex: male Height: 6' (182.9 cm) Weight: 208 lb 8 oz (94.6 kg) Initial Antibiotic Indication: CAP with MRSA+ nares Special population: None Current ABX List Includes: Antibiotic - Name Start Date Stop Date Vancomycin 07/29 ceftriaxone 07/28 08/03 azithromycin 07/28 07/30 Lab Results Component Value Date CREATININE 0.70 07/31/2023 CREATININE 0.73 07/30/2023 CREATININE 0.77 07/29/2023 CREATININE 0.97 07/28/2023 Estimated Creatinine Clearance: 84.9 mL/min (by C-G formula based on SCr of 0.7 mg/dL). Lab Results Component Value Date WBC 11.32 07/31/2023 WBC 17.90 (H) 07/30/2023 WBC 15.96 (H) 07/29/2023 WBC 19.07 (H) 07/28/2023 PCT 0.09 07/28/2023 NEUT 94.9 (H) 07/31/2023 NEUT 86.9 (H) 07/30/2023 NEUT 89.8 (H) 07/29/2023 NEUT 87.0 (H) 07/28/2023 ANC 10.75 (H) 07/31/2023 ANC 15.56 (H) 07/30/2023 ANC 14.32 (H) 07/29/2023 ANC 16.61 (H) 07/28/2023 Cultures: Limited to Pertinent Results Date Site / Type Organism Pertinent Sensitivities 07/28 Blood x 2 No growth, day 3 07/28 MRSA nasal positive 07/28 Rsp Viral RSV positive Temp (24 hr max): Temp Av.1 ??F (36.7 ??C) Min: 97.5 ??F (36.4 ??C) Max: 98.6 ??F (37 ??C) Recent Vancomycin Dosing: Has patient received Vancomycin within the last 7 days? - No Current Admission Daily Drug Monitoring: Loading Dose (Mg) Date Time CrCl Predicted T1/2 2250mg 07/29 830 84.9 10.3 hr Date CrCl (ml/min) Dose + Interval Level Date Time Level (mcg/mL) True Trough (Y / N / --) Predicted Trough (mcg/ml) Predicted AUC Predicted % toxicity Predicted T1/2 (H) Dose adjustment (Increase/Decrease/None) 07/29 84.9 1250mg q12 13.7 494 9 07/30 84.9 [id number] 07/30 at 0410 13 N 12.8 500 8 8.08 increase 07/31 93.3 (per Insight) 1500 mg q12h 08/01@0800 ordered Y 12.3 488 8 7.76 None Monitoring Goals for Vancomycin: AUC 400-600 mg*L/HR Assessment: ?? Patient is on vancomcycin for pneumonia with MRSA+ ?? Culture analysis supporting above antibiotics: YES ?? Potential antibiotic change needed: No ?? Anticipated duration is TBD WBC is: Trending down Temp: afebrile over the last 24 hours SCr is: Stable and is at baseline Daily Scr Ordered: Yes UOP: 0.8 mL/kg/hr on 07/31 Dosing / Monitoring Plan: Vancomycin started at 2250mg IV x 1 time loading dose. Vancomycin continued at 1500mg IV every 12 hours based on patient age, weight, renal function and population kinetics. Predicted AUC and trough in the chart above. Above dose was selected for the following reasons: Patient's renal function is stable and has good urine output, so will continue current regimen for a goal AUC with a toxicity of less than 10% and peaks below 40 mcg/mL. Vancomycin level 48 hours from last level for closer monitoring due to every 12 hour regimen on a patient who is older than 70 and remains ICU status. Vancomycin level scheduled for 08/01 at 0800. Pharmacists will continue to monitor. Thank you for this consult. For questions call [facility] Pharmacy [phone] Sr. Daniela Mota, PharmD 07/31/2023, 10:58 AM MATERIALS SUPERVISOR RIALS SUPERVISOR * Plan of Care - Rosetta Nolasco RN - 07/31/2023 10:37 AM CST Problem: Adult Inpatient Plan of Care Goal: Plan of Care Review Outcome: Ongoing (see interventions/notes) Goal: Patient-Specific Goal (Individualized) Outcome: Ongoing (see interventions/notes) Goal: Absence of Hospital-Acquired Illness or Injury Outcome: Ongoing (see interventions/notes) Goal: Optimal Comfort and Wellbeing Outcome: Ongoing (see interventions/notes) Goal: Readiness for Transition of Care Outcome: Ongoing (see interventions/notes) Problem: Fall Injury Risk Goal: Absence of Fall and Fall-Related Injury Outcome: Ongoing (see interventions/notes) Problem: Gas Exchange Impaired Goal: Optimal Gas Exchange Outcome: Ongoing (see interventions/notes) Problem: Behavioral Health Comorbidity Goal: Maintenance of Behavioral Health Symptom Control Outcome: Ongoing (see interventions/notes) Problem: Anxiety Goal: Anxiety Reduction or Resolution Outcome: Ongoing (see interventions/notes) Problem: Disruptive Behavior Goal: Improved Impulse and Aggression Control (Disruptive Behavior) Outcome: Ongoing (see interventions/notes) Goal: Improved Mood Symptoms (Disruptive Behavior) Outcome: Ongoing (see interventions/notes) Goal: Improved Sleep (Disruptive Behavior) Outcome: Ongoing (see interventions/notes) Goal: Enhanced Social, Occupational or Functional Skills (Disruptive Behavior) Outcome: Ongoing (see interventions/notes) Problem: Skin Injury Risk Increased Goal: Skin Health and Integrity Outcome: Ongoing (see interventions/notes) Problem: Mechanical Ventilation Invasive Goal: Effective Communication Outcome: Ongoing (see interventions/notes) Goal: Optimal Device Function Outcome: Ongoing (see interventions/notes) Goal: Mechanical Ventilation Liberation Outcome: Ongoing (see interventions/notes) Goal: Optimal Nutrition Delivery Outcome: Ongoing (see interventions/notes) Goal: Absence of Device-Related Skin and Tissue Injury Outcome: Ongoing (see interventions/notes) Goal: Absence of Ventilator-Induced Lung Injury Outcome: Ongoing (see interventions/notes) RIALS SUPERVISOR * Interdisciplinary - Dorita Boswell RD - 07/31/2023 10:04 AM CST ASSESSMENT: Nutrition Assessment triggered by: RD consult tube feeding recommendation. Nutrition risk screen tube feeding or parenteral nutrition. PROBLEM: Increased nutrient needs, related to & evidenced by infection & intubation. Principal Problem: Acute respiratory failure with hypoxia (HCC) Past Medical History: Past Medical History Positives Diagnosis Date ??? Arthritis ??? Prostate cancer (HCC) ??? Schizophrenia (HCC) ??? Stroke (HCC) Diet: DIET NPO EFFECTIVE NOW Current OGTF: Vital AF 1.2, target rate 60ml/hour with 30ml H2O flush q 6 hours. (Original OGTF: Jevity 1.2, target rate 50ml/hour with 30ml H2O flush q 6 hours) Chew/swallow: SAMPLE MAKER ORIGINAL on extubation, or per protocol Intake Adequacy: NPO IV's: meds Skin/Wound: none Labs noted: 07/30/23-Rf=850, K=4.2, SO=657, EGFR>60; 07/28/23-Wv=987, K=3.9, XC=268, albumin=3.4, EGFR>60; Meds noted: IV-vanco/rocephin/solumdefrol,versed, protonix Education needs: not indicated Height: Ht Readings from Last 1 Encounters: 07/28/23 6' (1.829 m) Weight: Admit wt 205# Wt Readings from Last 1 Encounters: 07/28/23 208 lb 8 oz (94.6 kg) BMI: Body mass index is 28.28 kg/m??. BMI weight range for height: 143-183# EMR wt hx: 207# -02/02/2023 ([facility]) 206# 9oz -12/05/2022 ([facility]) 204# -12/06/2021 ([facility] ESTIMATED:(critical care guidelines, based on 90kg) Calories: 2200 (25kcal/kg) Protein: 108-135gm (1.2-1.5gl/kg) Fluid: 2200ml GOAL: nutrition adequacy INTERVENTION: consult-City Letter Carrier, Electrochemist: Edema 3+ Rt hand; currently tolerating 50ml of Jevity 1.2, per nsg; To better meet pts estimated calorie & protein needs, change OGTF to Vital AF 1.2; Target OGTF goal 60ml/hr (would meet 80% of estimated calories & 100% of lower PRO estimated needs); Start Vital AF 1.2 at 40ml/hour & advance by 10ml q 4 hours to target rate of 60ml/hour; At target rate OGTF will provide: 1440ml Vital AF 1.2, 1728 calories, 108gm PRO, 159gm CHO/7gm fiber, 2369mg K+; H2O flush provides: 120ml H2O (1560ml total fluids, or 1286ml free water, Vital AF is 81% free water) Reassess: 08/02/[address] RIALS SUPERVISOR * Interdisciplinary - Stephanie Conway RN - 07/31/2023 10:02 AM MATERIALS SUPERVISOR No SBT/DSI today per Sulaiman LARA RIALS SUPERVISOR * Interdisciplinary - Rosetta Nolasco RN - 07/31/2023 8:19 AM CST Spoke with Dr. Ny about patient's high blood sugars (193). Since the patient is not diabetic, doctor Anant stated that no corrective insulin is necessary. RIALS SUPERVISOR * Interdisciplinary - Rosetta Nolasco RN - 07/31/2023 7:13 AM CST Report received from ALPHONSO Blancas. Assumed patient care at this time. Patient intubated and sedated. Vital signs per flowsheet. IV drip rates verified. Call light in reach, alarms on. No acute distress noted. Patient updated to plan of care. BSSR completed and 2 RN skin assessment completed. Patient turned and repositioned. RIALS SUPERVISOR * Interdisciplinary - Sj Cortes RN - 07/31/2023 7:07 AM CST Patient report given to ALPHONSO Peoples. Patient remain intubated and sedated. Vital Signs per flowsheet.. Bed alarm on. Jadon's care home updated to plan of care on nights. No acute distress noted. Versed gtt continues. Patient made improvements in vent settings overnight. SJ CORTES RN RIALS SUPERVISOR * Interdisciplinary - Ladi Almaraz RN - 07/31/2023 6:22 AM MATERIALS SUPERVISOR Plan of Care reviewed noted. Will continue to monitor LADI ALMARAZ RN, 07/31/2023, 6:22 AM MATERIALS SUPERVISOR RIALS SUPERVISOR * Plan of Care - Sj Cortes RN - 07/31/2023 2:15 AM CST Problem: Adult Inpatient Plan of Care Goal: Plan of Care Review Outcome: Ongoing (see interventions/notes) Flowsheets Taken 07/31/2023 0210 by SJ Plan of Care Reviewed With: patient caregiver Today's Goal: Titrate down FIO2 to 35% this shift. Outcome Evaluation: Patient intubated on . Patient sedated and unrestrained. toleraring tube feed at goal rate of 50ml/hr. Patient also tolerating turns and oral care. cedillo patent. Versed gtt infusing. iv antibiotics given. Scds on. vitals stable. Taken 07/29/2023 1834 by AMY Progress: improving Does the patient need assistance with discharge and/or transitioning to the next level of care?: Yes, case management already following Goal: Patient-Specific Goal (Individualized) Outcome: Ongoing (see interventions/notes) Goal: Absence of Hospital-Acquired Illness or Injury Outcome: Ongoing (see interventions/notes) Goal: Optimal Comfort and Wellbeing Outcome: Ongoing (see interventions/notes) Goal: Readiness for Transition of Care Outcome: Ongoing (see interventions/notes) Problem: Fall Injury Risk Goal: Absence of Fall and Fall-Related Injury Outcome: Ongoing (see interventions/notes) Problem: Gas Exchange Impaired Goal: Optimal Gas Exchange Outcome: Ongoing (see interventions/notes) Problem: Behavioral Health Comorbidity Goal: Maintenance of Behavioral Health Symptom Control Outcome: Ongoing (see interventions/notes) Problem: Skin Injury Risk Increased Goal: Skin Health and Integrity Outcome: Ongoing (see interventions/notes) Problem: Mechanical Ventilation Invasive Goal: Effective Communication Outcome: Ongoing (see interventions/notes) Goal: Optimal Device Function Outcome: Ongoing (see interventions/notes) Goal: Mechanical Ventilation Liberation Outcome: Ongoing (see interventions/notes) Goal: Optimal Nutrition Delivery Outcome: Ongoing (see interventions/notes) Goal: Absence of Device-Related Skin and Tissue Injury Outcome: Ongoing (see interventions/notes) Goal: Absence of Ventilator-Induced Lung Injury Outcome: Ongoing (see interventions/notes) RIALS SUPERVISOR * Interdisciplinary - Sj Crotes RN - 07/30/2023 8:52 PM CST 1999 Tube feeding rate increased to 40ml/hr. No residual, patient tolerating. Versed gtt increased patient RASS 0 during oral care and suctioning. SCDS placed. Patient now back at RASS goal -2. RIALS SUPERVISOR * Interdisciplinary - Amy Herring RN - 07/30/2023 7:12 PM CST Bedside shift report given to ALPHONSO Blancas. Skin assessed and patient repositioned with oncoming RN. Patient remains intubated and sedated, RASS -2. Vital Signs per flowsheet. 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 Patient SPO2 99% on 80% FIO2. Call light within reach, alarms on. Patient updated to plan of care. No acute distress noted. Will continue to monitor. IV drip rates verifiedwith oncoming RN. AMY HERRING RN RIALS SUPERVISOR * Interdisciplinary - Sj Cortes RN - 07/30/2023 7:00 PM CST Report received from Amy WERNER. Assumed patient care at this time. Patient is intubated and sedated.Vital signs per flowsheet. IV drip rates verified. Call light in reach, alarms on. No acute distress noted. Tube feeding infusing. BSSR completed and 2 RN skin assessment completed. Patient turned and repositioned. RIALS SUPERVISOR * Plan of Care - Emy Canales - 07/30/2023 4:43 PM CST Case Management Comprehensive Assessment Iván Thornton 's readmission risk level (if calculated) is: 1-Low Patient Class: Inpatient Consecutive Inpatient Midnights 2 Actual day(s) of hospital stay (compare to working DRG): 2 Reason for Event Promotions CoordinatorLacquerer: Discharge planning Iván Thornton is in the hospital due to: Acute respiratory failure with hypoxia Prior to Admission (Support, Living Environment,ADLs IADLs, Transportation, Employment, Access to Care) Patient came to this hospital from: [facility] Other (explain type of facility in comment) ([facility]) Information provided by Terri Keith due to patient being intubated. Norberto is a 77 year old, , male. Patient has been a resident at [facility] for over 8+ years. Patient is independent withADL's, meals, cleaning, and laundry. He has attention and support from Terri Keith who owns [facility]. He does not use DME. Patient is established with PCP Irving Jeffries MD. Patient has Medicare and Medicaid without troubles obtaining medications. Terri Keith assists with management. Patient does not have advanced directives. Iván Thornton is not a 30 day re-hospitalization. Plan of Care (Problem/ situation/ barrier + goals/ milestones + interventions + evaluation of progress = Plan of Care) Hospital Plan: intubated, sedated, vancomycin, rocephin, solumedrol Anticipated Discharge Plan: Home 07/30/23 Patient/ patient customer relations representative's preferences regarding the discharge plan: undetermined at this time due to condition Family/ Caregiver's readiness, willingness and ability to support patient with anticipated community discharge plan: N/A - Not anticipating a community discharge at this time. SUMMARY (summary of interaction with patient/decision maker, family and interdisciplinary team) By phone, spoke with Terri Rao and introduced self and role and discussed plan of care. CM spoke with Terri Keith regarding surrogacy. She states patient has no living relatives that she knows of. His sister and mother both several years ago. Terri Keith is the closed friend that isaware of his medical conditions and day to day life. The attending physician has confirmed the patient is non-decisional. Confirmed there is no HC-POA completed or on file. Determined HC-surrogate(s) using the [facility] hierarchy, using available contact information, and contacting the person(s) as noted below. ??? Court appointed guardian of the person: The patient does not have. ??? Spouse or civil union partner: The patient does not have. ??? Adult children: The patient does not have. ??? Parent(s): The patient does not have. ??? Adult brother(s) and sister(s): The patient does not have. ??? Adult grandchildren: The patient does not have. ? ? Close friend: First & last name, Terri Rao (contact phone: [phone]) verbalized understanding & AGREED to act as HC-surrogate. CM will provide [facility] Surrogate Appointment form to attending physician for review, completion, &signature(s). Once completed the form will be scanned into medical record. IM Letter Documentation, if applicable Medicare Notice Given to Responsible Democrat: Yes, in person Date Form Given to Patient/Responsible Democrat: 07/28/23 Decision Maker / Software Implementation Specialist Information Health Care Surrogate appointed by (Piter) Medical Decision Maker, if patient unable: Terri Rao Environmental Compliance Technician/Acoustic Intelligence Specialist Name: Terri Rao No new referrals for Beam Builder Helper at this time. RIALS SUPERVISOR * Interdisciplinary - Amy Herring, RN - 07/30/2023 2:29 PM CST Spoke with Terri Keith and updated her to patient condition. Terri Keith to be surrogate. Left a message for LUIGI Mercado. Terri Keith home and cell phone numbers placed in the chart. AMY HERRING, RN RIALS SUPERVISOR * Interdisciplinary - Amy Herring, RN - 07/30/2023 1:21 PM CST Called phone number in chart for Terri Keith which connects me to [facility]. Spoke with Marielena Russell, center representatives, and updated them to patient condition. At this time Patient does not have POA. No family known. Drew reports that he will update Terri Keith. I did explain that we would have to talk to Terri Keith herself if she was made Surrogate. Call placed to Jess, Case management in regards to surrogacy. AMY HERRING, RN RIALS SUPERVISOR * Interdisciplinary - Amy Herring RN - 07/30/2023 12:25 PM CST 1148 - Dr. Hilario at bedside for intubation. Patient given 5 mg Versed, 10mg Etomidate, 100mg Rocuronium for intubation. 1150 - Patient intubation with 7.5 ETT at 23 at lip. OG tube placed at 60 at lip. Patient placed onversed drip for sedation. Vital signs per flowsheet. No acute distress noted. AMY HERRING RN RIALS SUPERVISOR * Interdisciplinary - Efra Lai [facility] - 07/30/2023 11:59 AM CST PHARMACY PROGRESS NOTE: Vancomycin DAY # 1 Consulting Physician/Service: Archie Hilario Admit Date: 07/28/2023 Patient Name: Iván Dumont Age: 77 y.o. Sex: male Height: 6' (182.9 cm) Weight: 208 lb 8 oz (94.6 kg) Initial Antibiotic Indication: CAP with MRSA+ nares Special population: None Current ABX List Includes: Antibiotic - Name Start Date Stop Date Vancomycin 07/29 ceftriaxone 07/28 azithromycin 07/28 07/30 Lab Results Component Value Date CREATININE 0.73 07/30/2023 CREATININE 0.77 07/29/2023 CREATININE 0.97 07/28/2023 CREATININE 0.85 03/15/2023 Estimated Creatinine Clearance: 84.9 mL/min (by C-G formula based on SCr of 0.73 mg/dL). Lab Results Component Value Date WBC 17.90 (H) 07/30/2023 WBC 15.96 (H) 07/29/2023 WBC 19.07 (H) 07/28/2023 WBC 8.46 04/24/2023 PCT 0.09 07/28/2023 NEUT 86.9 (H) 07/30/2023 NEUT 89.8 (H) 07/29/2023 NEUT 87.0 (H) 07/28/2023 NEUT 66.6 04/24/2023 ANC 15.56 (H) 07/30/2023 ANC 14.32 (H) 07/29/2023 ANC 16.61 (H) 07/28/2023 ANC 5.64 (H) 04/24/2023 Cultures: Limited to Pertinent Results Date Site / Type Organism Pertinent Sensitivities 07/28 Blood x 2 penidng pending MRSA nasal positive Temp (24 hr max): Temp Av.1 ??F (36.2 ??C) Min: 96.5 ??F (35.8 ??C) Max: 97.8 ??F (36.6 ??C) Recent Vancomycin Dosing: Has patient received Vancomycin within the last 7 days? - No Current Admission Daily Drug Monitoring: Loading Dose (Mg) Date Time CrCl Predicted T1/2 2250mg 07/29 0830 84.9 10.3 hr Date CrCl (ml/min) Dose + Interval Level Date Time Level (mcg/mL) True Trough (Y / N / --) Predicted Trough (mcg/ml) Predicted AUC Predicted % toxicity Predicted T1/2 (H) Dose adjustment (Increase/Decrease/None) 07/29 84.9 1250mg q12 13.7 494 9 07/30 84.9 [id number] 07/30 at 0410 13 N 12.8 500 8 8.08 increase Monitoring Goals for Vancomycin: AUC 400-600 mg*L/HR Assessment: ?? Patient is on vancomcycin for pneumonia with MRSA+ ?? Culture analysis supporting above antibiotics: YES ?? Potential antibiotic change needed: No ?? Anticipated duration is TBD WBC is: Trending up Temp: afebrile over the last 24 hours SCr is: Stable and is at baseline Daily Scr Ordered: No - orderd daily SCr starting 07/31/23 UOP: 0.6 mL/kg/hr on 07/30 Dosing / Monitoring Plan: Vancomycin started at 2250mg IV x 1 time loading dose. Vancomycin continued at 1500mg IV every 12 hours based on patient age, weight, renal function and population kinetics. Predicted AUC and trough in the chart above. Above dose was selected for the following reasons: Level with AM labs resulted and based on updatedkinetics, will increase to 1500mg q12h. This will result in a higher AUC while within goal. WBC increased and patient intubated today, therefore will pick higher dosing. Tox remains <10% and peaks<40. Will plan on checking a vancomycin level in 2-3 days pending renal function. Pharmacists will continue to monitor. Thank you for this consult. For questions call [facility] Pharmacy [phone] Efra Lai RPH 07/30/2023, 11:59 AM MATERIALS SUPERVISOR RIALS SUPERVISOR * Interdisciplinary - Amy Herring RN - 07/30/2023 11:34 AM CST Patient's breathing becoming more labored. Dr. Hilario at bedside. Preparing for intubation. AMY HERRING, RN RIALS SUPERVISOR * Interdisciplinary - Amy Herring RN - 07/30/2023 9:30 AM CST 0930 Patient SPO2 started decreasing. Patient having quite an increase in work of breathing. 87% on30L, 80% Airvo. Abdominal breathing noted. Respiratory called to bedside. Calming techniques attempted without success. Patient precedex increased and ativan given. No change in patient condition. Patient tachypnic with labored breathing. [address] Hilario regarding patient condition. Duo nebs, ABGs, and steroids ordered. CXR ordered. 1015. Patient doing better on 90%, 35L Airvo. Patient reports doing better. Will continue to monitor. AMY HERRING RN RIALS SUPERVISOR * Amy Landry RN - 07/30/2023 7:00 AM CST Bedside shift report received from ALPHONSO Perez. Assumed patient care at this time. Patient repositioned and skin assessed. Patient A&Ox4, RASS 1. Patient on precedex, restless at times. Vital signs per flowsheet. 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 Patient showing 97%SPO2 on 80% FIO2. Call light in reach, alarms on. No acute distress noted. Will continue to monitor. Patient updated to plan of care. AMY HERRING RN RIALS SUPERVISOR * Ana Cox RN - 07/30/2023 7:00 AM MATERIALS SUPERVISOR Patient bedside shift report given to ALPHONSO Alexis. IVF's and gtt rates verified. Pt remains on airvo,settings verified with oncoming RN. Pt repositioned and skin assessed with oncoming RN. Pt resting in bed with call light in reach. Bed alarm is on. Pt updated to plan of care. RIALS SUPERVISOR * Ana Cox RN - 07/30/2023 4:30 AM MATERIALS SUPERVISOR Pt assessed by this RN after fire equipment repairer inspector alarmed that pt's leads had come off. HHFNC remains inplace but pt appears highly anxious and restless. Precedex restarted, per SEP. RIALS SUPERVISOR * Ana Cox RN - 07/30/2023 4:00 AM MATERIALS SUPERVISOR This RN alerted by ALPHONSO Brian that the patient had come off of their cardiac monitoring leads and appeared to be fidgeting in bed and restless. Upon assessment, pt's HFNC was off and SpO2 had dropped into the 70's. HFNC put in place and cardiac leads reestablished. Pt pulled up in bed and head of bed elevated. Pt instructed on proper breathing technique, HFNC titrated up to 10L, but SpO2 remained in high 80's. RT called to bedside, airvo restarted. RIALS SUPERVISOR * Interdisciplinary - Ana Calderon RN - 07/29/2023 7:09 PM MATERIALS SUPERVISOR Bedside shift report received from LAPHONSO Alexis. Assumed pt care at this time. Isolations precautions maintained. Pt repositioned for comfort, skin assessed. Pt A&Ox4. Oxygen settings verified, VdC888% on 10L HFNC. Pt resting in bed with call light in reach. Bed alarm is on. Pt updated to plan ofcare. No acute distress noted. RIALS SUPERVISOR * Interdisciplinary - Amy Herring RN - 07/29/2023 7:00 PM CST Bedside shift report given to ALPHONSO Perez. Skin assessed and patient repositioned with oncoming RN. Patient A&Ox4, forgetful at times. Vital Signs per flowsheet. 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 Patient SPO2 94% on 10HFLNC. Call light within reach, alarms on. Patient updatedto plan of care. No acute distress noted. Will continue to monitor. AMY HERRING RN RIALS SUPERVISOR * Plan of Care - Amy Herring RN - 07/29/2023 6:37 PM CST Problem: Adult Inpatient Plan of Care Goal: Plan of Care Review Outcome: Ongoing (see interventions/notes) Flowsheets (Taken 07/29/20231833) Plan of Care Reviewed With: patient Progress: improving Today's Goal: SPO2>90% while titrating oxygen RASS 0 Outcome Evaluation: Patient currently on 10LHFNC, doing well. Patient impulsive at times, bed alarmused. Patient very pleasant. Patient off precedex and started on ativan q 6 hours as needed. A&OX4, calm and coopeartive. Does the patient need assistance with discharge and/or transitioning to the next level of care?: Yes, case management already following Goal: Patient-Specific Goal (Individualized) Outcome: Ongoing (see interventions/notes) Goal: Absence of Hospital-Acquired Illness or Injury Outcome: Ongoing (see interventions/notes) Goal: Optimal Comfort and Wellbeing Outcome: Ongoing (see interventions/notes) Goal: Readiness for Transition of Care Outcome: Ongoing (see interventions/notes) Problem: Fall Injury Risk Goal: Absence of Fall and Fall-Related Injury Outcome: Ongoing (see interventions/notes) Intervention: Identify and Manage Contributors Flowsheets Taken 07/29/20231833 Medication Review/Management: medications reviewed Taken 07/29/2023 8534 Self-Care Promotion: independence encouraged BADL personal objects within reach Intervention: Promote Injury-Free Environment Flowsheets (Taken 07/29/20231833) Safety Promotion/Fall Prevention: bed alarm commode/urinal/bedpan at bedside fall reduction program maintained room near unit station nonskid shoes/slippers when out of bed supervised activity Problem: Gas Exchange Impaired Goal: Optimal Gas Exchange Outcome: Ongoing (see interventions/notes) Intervention: Optimize Oxygenation and Ventilation Flowsheets (Taken 07/29/20231833) Head of Bed (HOB) Positioning: HOB at 30-45 degrees Airway/Ventilation Management: airway patency maintained Problem: Behavioral Health Comorbidity Goal: Maintenance of Behavioral Health Symptom Control Outcome: Ongoing (see interventions/notes) Intervention: Maintain Behavioral Health Symptom Control Flowsheets (Taken 07/29/20231833) Medication Review/Management: medications reviewed RIALS SUPERVISOR * Interdisciplinary - Terri Atwood CRT - 07/29/2023 7:47 AM CST SpO2 100% on 40 lpm and 80% FiO2. Decreased to 30 lpm and 60% FiO2. SpO2 98%. Will continue to titrate as tolerated. RIALS SUPERVISOR * Tena - Ana Calderon, ALPHONSO - 07/29/2023 7:10 AM MATERIALS SUPERVISOR Patient bedside shift report given to ALPHONSO Alexis. IVF's and gtt rates verified. Pt remains on HHFNC,settings verified with oncoming RN. SpO2 at 97% on 40L and FiO2 of 75%. Pt repositioned to comfortable and skin assessed. Cedillo remains in place. Pt A&O 3-4. Pt resting in bed with call light in reach. Bed alarm is on. Pt updated to plan of care. No acute distress noted. RIALS SUPERVISOR * Interdisciplinary - Amy Herring RN - 07/29/2023 7:00 AM CST Bedside shift report received from ALPHONSO Perez. Assumed patient care at this time. Patient repositioned and skin assessed. Patient A&Ox4. Vital signs per flowsheet. 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 Patient showing 94% SPO2 on 40L, 75% FIO2. Call light in reach, bed alarms on. No acute distress noted. Will continue to monitor. Patient updated to plan of care. Patient continues on precedex. AMY HERRING RN RIALS SUPERVISOR * Interdisciplinary - Angy Crawford [facility] - 07/29/2023 6:44 AM CST PHARMACY PROGRESS NOTE: Vancomycin DAY # 1 Consulting Physician/Service: Archie Hilario Admit Date: 07/28/2023 Patient Name: Iván Dumont Age: 77 y.o. Sex: male Height: 6' (182.9 cm) Weight: 208 lb 8 oz (94.6 kg) Initial Antibiotic Indication: CAP with MRSA+ nares Special population: None Current ABX List Includes: Antibiotic - Name Start Date Stop Date Vancomycin 07/29 ceftriaxone 07/28 azithromycin 07/28 Lab Results Component Value Date CREATININE 0.77 07/29/2023 CREATININE 0.97 07/28/2023 CREATININE 0.85 03/15/2023 CREATININE 0.92 01/05/2023 Estimated Creatinine Clearance: 84.9 mL/min (by C-G formula based on SCr of 0.77 mg/dL). Lab Results Component Value Date WBC 15.96 (H) 07/29/2023 WBC 19.07 (H) 07/28/2023 WBC 8.46 04/24/2023 WBC 7.30 03/15/2023 PCT 0.09 07/28/2023 NEUT 89.8 (H) 07/29/2023 NEUT 87.0 (H) 07/28/2023 NEUT 66.6 04/24/2023 NEUT 68.6 (H) 03/15/2023 ANC 14.32 (H) 07/29/2023 ANC 16.61 (H) 07/28/2023 ANC 5.64 (H) 04/24/2023 ANC 5.01 03/15/2023 Cultures: Limited to Pertinent Results Date Site / Type Organism Pertinent Sensitivities 07/28 Blood x 2 penidng pending MRSA nasal positive Temp (24 hr max): Temp Av.7 ??F (36.5 ??C) Min: 97.3 ??F (36.3 ??C) Max: 98 ??F (36.7 ??C) Recent Vancomycin Dosing: Has patient received Vancomycin within the last 7 days? - No Current Admission Daily Drug Monitoring: Loading Dose (Mg) Date Time CrCl Predicted T1/2 2250mg 07/29 830 84.9 10.3 hr Date CrCl (ml/min) Dose + Interval Level Date Time Level (mcg/mL) True Trough (Y / N / --) Predicted Trough (mcg/ml) Predicted AUC Predicted % toxicity Predicted T1/2 (H) Dose adjustment (Increase/Decrease/None) 84.9 1250mg q12 13.7 494 9 Monitoring Goals for Vancomycin: AUC 400-600 mg*L/HR Assessment: ?? Patient is on vancomcycin for pneumonia with MRSA+ ?? Culture analysis supporting above antibiotics: YES ?? Potential antibiotic change needed: Yes - pending bx and clinical improvement ?? Anticipated duration is TBD WBC is: Trending down Temp: afebrile over the last 24 hours SCr is: Stable and is at baseline Daily Scr Ordered: No - will order UOP: 0.3 mL/kg/hr on 07/28 Dosing / Monitoring Plan: Vancomycin started at 2250mg IV x 1 time loading dose. Vancomycin continued at 1250mg IV every 12 hours based on patient age, weight, renal function and population kinetics. Predicted AUC and trough in the chart above. Above dose was selected for the following reasons: best kinetic fit per insight rx population kinetics to provide therapeutic AUC with minimal toxicity risk. Will plan on checking a vancomycin level prior to the 3rd total dose with morning labs (07/30 @ AM labs). Pharmacists will continue to monitor. Thank you for this consult. For questions call [facility] [phone] ANGY CRAWFORD RPH 07/29/2023, 6:45 AM MATERIALS SUPERVISOR RIALS SUPERVISOR RIALS SUPERVISOR * Interdisciplinary - Ana Calderon RN - 07/28/2023 9:25 PM MATERIALS SUPERVISOR Initial Skin Assessment Patient assessed with 2nd RN Evelin Wounds noted: No wounds on assessment. Dried scabs to toes noted. PRESSURE INJURY AND MOISTURE MANAGEMENT RECOMMENDATIONS: Moisture Management: Patient is Continent and has no moisture problems at this time Pressure Injury Prevention Interventions: Patient is independent in Room and/or Bed Specialty Surface Selection: Moisture Score: 4-->rarely moist Mobility Score: 4-->no limitation Total Cruzito Score: 22 Patient is in an ICU bed Wound care: N/A ANA CALDERON RN RIALS SUPERVISOR * Ana Cox RN - 07/28/2023 9:20 PM MATERIALS SUPERVISOR Patient transferred from Med/Surg room 235 and admitted to ICU room 2. Non re- breather in place andtelemetry box on pt at time of transfer. Pt transferred with all belongings, dentures in place. Pt notably anxious, had some difficulty scooting over to ICU bed. Respiratory at bedside to put pt backon airvo. Pt attached to fire equipment repairer inspector leads. Pt positioned to comfortable. Bed alarm on. Pt A&Ox4 and updated to plan of care. RIALS SUPERVISOR * Annabel Ramirez RN - 07/28/2023 9:13 PM CST Pt transferred to ICU room 2. Non re-breather placed by RT for transport. VSS. RIALS SUPERVISOR * Annabel Ramirez RN - 07/28/2023 8:40 PM CST Pt appears to be more relaxed a this time. Remains on AIrvo 30L with SpO2 at 97% and HR at 91. Continuing to monitor until room clean in ICU. RIALS SUPERVISOR * Annabel Ramirez RN - 07/28/2023 8:00 PM CST Monitoring patient closely from doorway/hallway. Patient fidgety, reminders to keep O2 in nose. SpO2 at 93% on 30L Airvo. Cedillo catheter draining scant, tea colored urine. All fall precaution in place with this RN at door. Will continue to monitor until patient has bed available in ICU. RIALS SUPERVISOR * Interdisciplinary - Terri Atwood CRT - 07/28/2023 6:20 PM CST Patient placed on heated high flow system, 40 lpm and 80% FiO2. SpO2 91%. Tolerating well at this time. RIALS SUPERVISOR * Interdisciplinary - Felisha Comer RN - 07/28/2023 5:[address] Shine made aware of ABG's and patient status. Orders received to transfer patient to the ICU and consult trap setter as he would be calling him himself to discuss the patient status. House sup made aware of need for unit bed. RIALS SUPERVISOR * Interdisciplinary - Felisha Comer RN - 07/28/2023 5:46 PM CST Pt visibly distressed. Using accessory muscles to breath, skin alejo in color. Dr shine notified of patient requiring more oxygen per nasal canula and orders received for ABGS and solu medrol. RIALS SUPERVISOR * Tena - Felisha Comer RN - 07/28/2023 3:30 PM CST Pt stating he needs to void. Pt unable to void when up to the commode or in urinal. Bladder scan completed and dr notified of results of 638 mls in bladder. Orders received for cedillo placement for retention. RIALS SUPERVISOR * Felisha Dailey RN - 07/28/2023 1:27 PM CST Initial Skin Assessment Patient assessed with 2nd RN Yusra and Adelina Wounds noted: none PRESSURE INJURY AND MOISTURE MANAGEMENT RECOMMENDATIONS: Moisture Management: Patient is Continent and has no moisture problems at this time Pressure Injury Prevention Interventions: Patient is independent in Room and/or Bed Specialty Surface Selection: Moisture Score: 4-->rarely moist Mobility Score: 3-->slightly limited Total Cruzito Score: 22 Patient has intact skin on the pelvis and trunk: Bed Selection based on Cruzito Moisture and Mobility: Moisture 4: Mobility 3 or 4: No Specialty Bed Indicated Wound care: N/A FELISHA COMER RN RIALS SUPERVISOR * Interdisciplinary - Sourav Boyce - 07/28/2023 1:25 PM CST Pt received in bed in his room alone. Pt stated that he believes in God, is a member of a local [employer] parish and has not attended zoroastrian services in a long time. Pt declined confession or to speak with organ pipe voicer. Pt was receptive to visit. RIALS SUPERVISOR documented in this encounter Plan of Treatment Scheduled Orders Name Type Priority Associated Diagnoses Orde r Schedule RHYTHM STRIP ECG Ordered: 12/2023 documented as of this encounter Procedures Procedure Name Priority Date/Time Associated Diagnosis Comments CBC WITH AUTO DIFFERENTIAL Routine 08/07/2023 6:34 AM MATERIALS SUPERVISOR CMP (COMPREHENSIVE METABOLIC PANEL) Routine 08/07/2023 6:34 AM MATERIALS SUPERVISOR COMPLETE BLOOD COUNT (CBC) WITH DIFF Routine 08/07/2023 6:34 AM MATERIALS SUPERVISOR RHYTHM STRIP 08/07/2023 12:00 AM MATERIALS SUPERVISOR RHYTHM STRIP 08/07/2023 12:00 AM MATERIALS SUPERVISOR CBC WITH AUTO DIFFERENTIAL Routine 08/06/2023 4:59 AM MATERIALS SUPERVISOR CMP (COMPREHENSIVE METABOLIC PANEL) Routine 08/06/2023 4:59 AM MATERIALS SUPERVISOR COMPLETE BLOOD COUNT (CBC) WITH DIFF Routine 08/06/2023 4:59 AM MATERIALS SUPERVISOR RHYTHM STRIP 08/06/2023 12:00 AM MATERIALS SUPERVISOR RHYTHM STRIP 08/06/2023 12:00 AM MATERIALS SUPERVISOR RHYTHM STRIP 08/06/2023 12:00 AM MATERIALS SUPERVISOR RHYTHM STRIP 08/06/2023 12:00 AM MATERIALS SUPERVISOR RHYTHM STRIP 08/06/2023 12:00 AM MATERIALS SUPERVISOR CBC WITH AUTO DIFFERENTIAL Routine 08/05/2023 5:03 AM MATERIALS SUPERVISOR CMP (COMPREHENSIVE METABOLIC PANEL) Routine 08/05/2023 5:03 AM MATERIALS SUPERVISOR COMPLETE BLOOD COUNT (CBC) WITH DIFF Routine 08/05/2023 5:03 AM MATERIALS SUPERVISOR RHYTHM STRIP 08/05/2023 12:00 AM MATERIALS SUPERVISOR RHYTHM STRIP 08/05/2023 12:00 AM MATERIALS SUPERVISOR RHYTHM STRIP 08/05/2023 12:00 AM MATERIALS SUPERVISOR CBC WITH AUTO DIFFERENTIAL Routine 08/04/2023 5:05 AM MATERIALS SUPERVISOR CREATININE BLOOD W/ GFR Routine 08/04/2023 5:05 AM MATERIALS SUPERVISOR COMPLETE BLOOD COUNT (CBC) WITH DIFF Routine 08/04/2023 5:05 AM MATERIALS SUPERVISOR AEROSOL NEBULIZER-INITIAL Routine 08/04/2023 2:16 AM MATERIALS SUPERVISOR AEROSOL NEBULIZER-INITIAL Routine 08/04/2023 2:16 AM MATERIALS SUPERVISOR RHYTHM STRIP 08/04/2023 12:00 AM MATERIALS SUPERVISOR RHYTHM STRIP 08/04/2023 12:00 AM MATERIALS SUPERVISOR CBC WITH AUTO DIFFERENTIAL Routine 08/03/2023 5:12 AM MATERIALS SUPERVISOR CMP (COMPREHENSIVE METABOLIC PANEL) Routine 08/03/2023 5:12 AM MATERIALS SUPERVISOR COMPLETE BLOOD COUNT (CBC) WITH DIFF Routine 08/03/2023 5:12 AM MATERIALS SUPERVISOR RHYTHM STRIP 08/03/2023 12:00 AM MATERIALS SUPERVISOR RHYTHM STRIP 08/03/2023 12:00 AM MATERIALS SUPERVISOR XR CHEST SINGLE VIEW PORTABLE Stat with Interpretation 08/02/2023 4:03 PM MATERIALS SUPERVISOR CBC WITH AUTO DIFFERENTIAL Routine 08/02/2023 4:57 AM MATERIALS SUPERVISOR CMP (COMPREHENSIVE METABOLIC PANEL) Routine 08/02/2023 4:57 AM MATERIALS SUPERVISOR COMPLETE BLOOD COUNT (CBC) WITH DIFF Routine 08/02/2023 4:57 AM MATERIALS SUPERVISOR RHYTHM STRIP 08/02/2023 12:00 AM MATERIALS SUPERVISOR RHYTHM STRIP 08/02/2023 12:00 AM MATERIALS SUPERVISOR US CHEST INCLUDES MEDIASTINUM Routine 08/01/2023 2:50 PM MATERIALS SUPERVISOR XR CHEST SINGLE VIEW PORTABLE Routine 08/01/2023 9:46 AM MATERIALS SUPERVISOR VANCOMYCIN Timed 08/01/2023 8:36 AM MATERIALS SUPERVISOR CBC WITH AUTO DIFFERENTIAL Routine 08/01/2023 4:56 AM MATERIALS SUPERVISOR CMP (COMPREHENSIVE METABOLIC PANEL) Routine 08/01/2023 4:56 AM MATERIALS SUPERVISOR COMPLETE BLOOD COUNT (CBC) WITH DIFF Routine 08/01/2023 4:56 AM MATERIALS SUPERVISOR RHYTHM STRIP 08/01/2023 12:00 AM MATERIALS SUPERVISOR SMEAR, GRAM STAIN Routine 07/31/2023 8:2 3 PM MATERIALS SUPERVISOR CULTURE, RESPIRATORY, LOWER Routine 07/31/2023 8:23 PM MATERIALS SUPERVISOR POCT GLUCOSE Routine 07/31/2023 7:04 AM MATERIALS SUPERVISOR CBC WITH AUTO DIFFERENTIAL Routine 07/31/2023 4:33 AM MATERIALS SUPERVISOR CREATININE BLOOD W/ GFR Routine 07/31/2023 4:33 AM MATERIALS SUPERVISOR COMPLETE BLOOD COUNT (CBC) WITH DIFF Routine 07/31/2023 4:33 AM MATERIALS SUPERVISOR RHYTHM STRIP 07/31/2023 12:00 AM MATERIALS SUPERVISOR RHYTHM STRIP 07/31/2023 12:00 AM MATERIALS SUPERVISOR XR CHEST SINGLE VIEW PORTABLE Stat with Interpretation 07/30/2023 12:30 PM MATERIALS SUPERVISOR BLOOD GASES, ARTERIAL W/ O2 SATURATION STAT 07/30/2023 10:15 AM MATERIALS SUPERVISOR XR CHEST SINGLE VIEW PORTABLE Stat with Interpretation 07/30/2023 10:08 AM MATERIALS SUPERVISOR AEROSOL NEBULIZER-INITIAL Routine 07/30/2023 10:00 AM MATERIALS SUPERVISOR CBC WITH AUTO DIFFERENTIAL Routine 07/30/2023 4:10 AM MATERIALS SUPERVISOR VANCOMYCIN Timed 07/30/2023 4:10 AM MATERIALS SUPERVISOR COMPLETE BLOOD COUNT (CBC) WITH DIFF Routine 07/30/2023 4:10 AM MATERIALS SUPERVISOR BASIC METABOLIC PANEL W/ CALCIUM TOTAL Routine 07/30/2023 4:10 AM MATERIALS SUPERVISOR RHYTHM STRIP 07/30/2023 12:00 AM MATERIALS SUPERVISOR RHYTHM STRIP 07/30/2023 12:[address] ANGIO CHEST W/WO CONTRAST WITH PP (POST PROCESSING) STAT 07/29/2023 1:[address] CHEST W/O CONTRAST Routine 07/29/2023 1:19 PM MATERIALS SUPERVISOR D-DIMER Routine 07/29/2023 11:46 AM MATERIALS SUPERVISOR CBC WITH AUTO DIFFERENTIAL Routine 07/29/2023 5:14 AM MATERIALS SUPERVISOR LACTIC ACID (LACTATE) Routine 07/29/2023 5:14 AM MATERIALS SUPERVISOR CMP (COMPREHENSIVE METABOLIC PANEL) Routine 07/29/2023 5:14 AM MATERIALS SUPERVISOR COMPLETE BLOOD COUNT (CBC) WITH DIFF Routine 07/29/2023 5:14 AM MATERIALS SUPERVISOR COMMUNICATION TO RESPIRATORY THERAPY Routine 07/29/2023 1:57 AM MATERIALS SUPERVISOR TROPONIN I, HIGH SENSITIVITY (HSTRP) Routine 07/29/2023 12:18 AM MATERIALS SUPERVISOR RHYTHM STRIP 07/29/2023 12:00 AM MATERIALS SUPERVISOR RHYTHM STRIP 07/29/2023 12:00 AM MATERIALS SUPERVISOR ADULT TRANS THORACIC ECHO 2D COMPLETE STAT 07/28/2023 7:16 PM MATERIALS SUPERVISOR BLOOD GASES, ARTERIAL W/ O2 SATURATION STAT 07/28/2023 5:58 PM MATERIALS SUPERVISOR TROPONIN I, HIGH SENSITIVITY (HSTRP) Routine 07/28/2023 3:07 PM MATERIALS SUPERVISOR MRSA NASAL PCR Routine 07/28/2023 1:53 PM MATERIALS SUPERVISOR MRSA NASAL BY PCR Routine 07/28/2023 1:5 3 PM MATERIALS SUPERVISOR XR CHEST SINGLE VIEW PORTABLE STAT 07/28/2023 11:31 AM MATERIALS SUPERVISOR LACTIC ACID (LACTATE) STAT 07/28/2023 11:09 AM MATERIALS SUPERVISOR AEROSOL NEBULIZER-SUBSEQUEN T STAT 07/28/2023 10:59 AM MATERIALS SUPERVISOR AEROSOL NEBULIZER-INITIAL STAT 07/28/2023 9:02 AM MATERIALS SUPERVISOR XR CHEST SINGLE VIEW PORTABLE STAT 07/28/2023 8:54 AM MATERIALS SUPERVISOR BLOOD GASES, VENOUS W/ O2 SATURATION STAT 07/28/2023 8:52 AM MATERIALS SUPERVISOR PROCALCITONIN STAT 07/28/2023 8:50 AM MATERIALS SUPERVISOR EXTRA TUBES STAT 07/28/2023 8:50 AM MATERIALS SUPERVISOR RSV,SARS-COV-2,INFL UENZA A&B BY PCR STAT 07/28/2023 8:50 AM MATERIALS SUPERVISOR GOLD TOP TUBE STAT 07/28/2023 8:50 AM MATERIALS SUPERVISOR BLUE TOP TUBE STAT 07/28/2023 8:50 AM MATERIALS SUPERVISOR CBC WITH AUTO DIFFERENTIAL STAT 07/28/2023 8:50 AM MATERIALS SUPERVISOR LACTIC ACID (LACTATE) STAT 07/28/2023 8:50 AM MATERIALS SUPERVISOR CULTURE, BLOOD STAT 07/28/2023 8:50 AM MATERIALS SUPERVISOR CULTURE, BLOOD STAT 07/28/2023 8:50 AM MATERIALS SUPERVISOR CMP (COMPREHENSIVE METABOLIC PANEL) STAT 07/28/2023 8:50 AM MATERIALS SUPERVISOR COMPLETE BLOOD COUNT (CBC) WITH DIFF STAT 07/28/2023 8:50 AM MATERIALS SUPERVISOR B-TYPE NATRIURETIC PEPTIDE (BNP) STAT 07/28/2023 8:50 AM MATERIALS SUPERVISOR EKG 12 LEAD STAT 07/28/2023 8:38 AM MATERIALS SUPERVISOR RHYTHM STRIP 07/28/2023 12:00 AM MATERIALS SUPERVISOR RHYTHM STRIP 07/28/2023 12:00 AM MATERIALS SUPERVISOR EKG SCAN 07/28/2023 12:00 AM MATERIALS SUPERVISOR documented in this encounter Results * (ABNORMAL) CBC with Auto Differential (08/07/2023 6:34 AM MATERIALS SUPERVISOR) Only the most recent of11 resultswithin the time period is included. WBC 9.74 4.00 - 12.00 10(3)/mcL 08/07/2023 6:43 AM MATERIALS SUPERVISOR [facility] RBC 4.12(L) 4.40 - 5.80 10(6)/mcL 08/07/2023 6:43 AM MATERIALS SUPERVISOR [facility] HEMOGLOBIN (HGB) 12.4(L) 13.0 - 16.5 g/dL 08/07/2023 6:43 AM MATERIALS SUPERVISOR [facility] HEMATOCRIT (HCT) 38.0 38.0 - 50.0 % 08/07/2023 6:43 AM MATERIALS SUPERVISOR [facility] MCV 92.2 82.0 - 96.0 fL 08/07/2023 6:43 AM MATERIALS SUPERVISOR [facility] MCH 30.1 26.0 - 32.0 pg 08/07/2023 6:43 AM MATERIALS SUPERVISOR [facility] MCHC 32.6 31.0 - 36.0 g/dL 08/07/2023 6:43 AM [facility] PLATELET COUNT 162 140 - 440 10(3)/mcL 08/07/2023 6:43 AM [facility] RDW 13.9 11.8 - 15.5 % 08/07/2023 6:43 AM [facility] MPV 12.0 8.0 - 12.6 fL 08/07/2023 6:43 AM [facility] NEUTROPHILS 70.7(H) 40.0 - 68.0 % 08/07/2023 6:43 AM [facility] LYMPHOCYTES 16.5(L) 19.0 - 49.0 % 08/07/2023 6:43 AM [facility] MONOCYTES 12.5 3.0 - 13.0 % 08/07/2023 6:43 AM [facility] EOSINOPHILS 0.1 0.0 - 8.0 % 08/07/2023 6:43 AM [facility] BASOPHILS 0.2 0.0 - 1.0 % 08/07/2023 6:43 AM [facility] ABSOLUTE NEUTROPHILS 6.88(H) 1.40 - 5.30 10(3)/mcL 08/07/2023 6:43 AM [facility] ABSOLUTE LYMPHOCYTES 1.61 0.90 - 3.30 10(3)/mcL 08/07/2023 6:43 AM [facility] ABSOLUTE MONOCYTES 1.22(H) 0.10 - 0.90 10(3)/mcL 08/07/2023 6:43 AM [facility] ABSOLUTE EOSINOPHIL 0.01 0.00 - 0.50 10(3)/mcL 08/07/2023 6:43 AM [facility] ABSOLUTE BASOPHILS 0.02 0.00 - 0.10 10(3)/[facility] 08/07/2023 6:43 AM [facility] NRBC PER 100 WBC 0 08/07/19 6:43 AM [facility] Blood Venipuncture / Unknown 08/07/2023 6:34 AM MATERIALS SUPERVISOR 08/07/2023 6:39 AM MATERIALS SUPERVISOR us Marcos Vincent MD HEMATOLOGY ORDERABLES Final Result [facility] [facility] [place] [address] * (ABNORMAL) CMP (Comprehensive Metabolic Panel) (08/07/2023 6:34 AM MATERIALS SUPERVISOR) Only the most recent of8 resultswithin the time period is included. SODIUM 135(L) 136 - 145 mmol/L 08/07/2023 7:00 AM [facility] POTASSIUM 4.4 3.5 - 5.1 mmol/L 08/07/2023 7:00 AM [facility] CHLORIDE 106 98 - 107 mmol/L 08/07/2023 7:00 AM [facility] CO2, VENOUS 24 22 - 30 mmol/L 08/07/2023 7:00 AM [facility] ANION GAP 9.4 <18.0 mmol/L 08/07/2023 7:00 AM [facility] GLUCOSE 86 70 - 99 mg/dL 08/07/2023 7:00 AM [facility] BUN 28(H) 8 - 26 mg/dL 08/07/2023 7:00 AM [facility] CREATININE, BLOOD 0.72 0.70 - 1.30 mg/dL 08/07/2023 7:00 AM [facility] BUN/CREATININE RATIO 39(H) 12 - 20 ratio 08/07/2023 7:00 AM [facility] TOTAL PROTEIN 5.6(L) 6.3 - 8.2 g/dL 08/07/2023 7:00 AM [facility] ALBUMIN 3.2(L) 3.5 - 5.0 g/dL 08/07/2023 7:00 AM [facility] A/G RATIO 1.3 1.0 - 2.2 08/07/2023 7:00 AM [facility] CALCIUM 8.7 8.7 - 10.5 mg/dL 08/07/2023 7:00 AM [facility] T BILI 0.5 0.2 - 1.2 mg/dL 08/07/2023 7:00 AM [facility] SGOT (AST) 18 5 - 34 U/L 08/07/2023 7:00 AM [facility] SGPT (ALT) 67(H) 0 - 55 U/L 08/07/2023 7:00 AM [facility] ALKALINE PHOSPHATASE 58 40 - 150 U/L 08/07/2023 7:00 AM [facility] GFR, ESTIMATED >60 >=60 08/07/2023 7:00 AM [facility] Comment: Creatinine Clearance is the preferred criteria for selecting drug dose adjustments in renally impaired patients. ??The GFR is provided as additional pertinent clinical information. GFR is reported in mL/min/1.73 sq m. Calculation based on the Chronic Kidney Disease Epidemiology Collaboration (CKD- EPI) equation refit without adjustment for race. GFR, EST. >60 >=60 024 7:00 AM [facility] GFR, EST. NONAFRICAN >60 >=60 08/07/2023 7:00 AM [facility] Blood Venipuncture / Unknown 08/07/2023 6:34 AM MATERIALS SUPERVISOR 08/07/2023 6:39 AM MATERIALS SUPERVISOR us Marcos Vincent MD CHEMISTRY ORDERABLES Final Result [facility] [place] [address] * RHYTHM STRIP (08/07/2023 12:00 AM MATERIALS SUPERVISOR) Only the most recent of25 resultswithin the time period is included. 08/07/2023 us Provider Scan IMG ECG ORDERABLES Final Result Performing Organization Address [facility] de Phone Number SCAN * (ABNORMAL) Creatinine Blood w/ GFR (08/04/2023 5:05 AM MATERIALS SUPERVISOR) Only the most recent of2 resultswithin the time period is included. CREATININE, BLOOD 0.62(L) 0.70 - 1.30 mg/dL 08/04/2023 6:03 AM MATERIALS SUPERVISOR [facility] GFR, ESTIMATED >60 >=60 08/04/2023 6:03 AM MATERIALS SUPERVISOR [facility] Comment: Creatinine Clearance is the preferred criteria for selecting drug dose adjustments in renally impaired patients. ??The GFR is provided as additional pertinent clinical information. GFR is reported in mL/min/1.73 sq m. Calculation based on the Chronic Kidney Disease Epidemiology Collaboration (CKD- EPI) equation refit without adjustment for race. GFR, EST. >60 >=60 024 6:03 AM MATERIALS SUPERVISOR [facility] GFR, EST. NONAFRICAN >60 >=60 08/04/2023 6:03 AM MATERIALS SUPERVISOR [facility] Blood Venipuncture / Unknown 08/04/2023 5:05 AM MATERIALS SUPERVISOR 08/04/2023 5:35 AM MATERIALS SUPERVISOR Uri Ny MD CHEMISTRY ORDERABLES Fin al Result Performing Organization Address City/[facility] de Phone Number [facility] [place] [address] * XR CHEST SINGLE VIEW PORTABLE (08/02/2023 4:03 PM MATERIALS SUPERVISOR) Only the most recent of6 resultswithin the time period is included. Anatomical Region Laterality Modality Chest N/A Digital Radiogra phy 08/02/2023 4:21 PM MATERIALS SUPERVISOR Impressions 08/02/2023 4:23 PM MATERIALS SUPERVISOR IMPRESSION: Small left-sided pleural effusion has improved from the reference examination. ??Bibasilar airspace opacities appear unchanged. Narrative 08/02/2023 4:23 PM MATERIALS SUPERVISOR EXAM DESCRIPTION: XR CHEST SINGLE VIEW PORTABLE REASON FOR STUDY: post extubation. RSV x 5 days. HX: Former smoker 2 ppd x 20 yrs, Stroke, Prostate cancer ?? TECHNIQUE: Single ??radiographic view(s) of the chest. COMPARISON: 08/01/2023 FINDINGS: LUNGS: ??Small left-sided pleural effusion. ??No pneumothorax. ??Patchy bibasilar airspace opacities appear unchanged. HEART/MEDIASTINUM: ??Cardiac silhouette and mediastinal contours appear unchanged. LINES/TUBES: ??Interval removal of the endotracheal and NG tubes. BONES: ??No acute osseous abnormality. THIS IS AN ELECTRONICALLY VERIFIED FINAL REPORT 08/02/2023 4:21 PM - Electronically signed by ??Joe Gómez M.D. AM: AM D: ??08/02/2023 4:21 PM T: ??08/02/2023 4:21 PM Report ID: [id number] Reading Location: ??[id number] Procedure Note Joe Gómez MD - 08/02/2023 EXAM DESCRIPTION: XR CHEST SINGLE VIEW PORTABLE REASON FOR STUDY: post extubation. RSV x 5 days. HX: Former smoker 2 ppd x 20 yrs, Stroke, Prostate cancer TECHNIQUE: Single radiographic view(s) of the chest. COMPARISON: 08/01/2023 FINDINGS: LUNGS: Small left-sided pleural effusion. No pneumothorax. Patchy bibasilar airspace opacities appear unchanged. HEART/MEDIASTINUM: Cardiac silhouette and mediastinal contours appear unchanged. LINES/TUBES: Interval removal of the endotracheal and NG tubes. BONES: No acute osseous abnormality. THIS IS AN ELECTRONICALLY VERIFIED FINAL REPORT 08/02/2023 4:21 PM - Electronically signed by Joe Gómez M.D. AM: AM Report ID: [id number] Reading Location: [id number] IMPRESSION: Small left-sided pleural effusion has improved from the reference examination. Bibasilar airspace opacities appear unchanged. Archie Hilario MD IMG DIAGNOSTIC ORDERABLES Final Result * US CHEST INCLUDES MEDIASTINUM (08/01/2023 2:50 PM MATERIALS SUPERVISOR) Allan Concepcion MD [facility] US ORDERABLES Final Result * (ABNORMAL) Vancomycin Level (08/01/2023 8:36 AM MATERIALS SUPERVISOR) Only the most recent of2 resultswithin the time period is included. VANCOMYCIN RESULT 12(L) 20 - 40 mcg/mL 08/01/2023 9:08 AM MATERIALS SUPERVISOR [facility] Blood Venipuncture / Unknown 08/01/2023 8:36 AM MATERIALS SUPERVISOR 08/01/2023 8:38 AM MATERIALS SUPERVISOR Narrative [facility] - 08/01/2023 9:08 AM MATERIALS SUPERVISOR CALL PHARMACY FOR THERAPEUTIC RANGE. Uri Ny MD CHEMISTRY ORDERABLES Fin al Result [facility] [place] [address] * SMEAR, GRAM STAIN (07/31/2023 8:23 PM MATERIALS SUPERVISOR) GRAM STAIN Moderate Segmented Neutrophils Seen 08/01/2023 4:58 PM MATERIALS SUPERVISOR [facility] GRAM STAIN Rare Squamous Epithelial cells per low power field 08/01/2023 4:58 PM MATERIALS SUPERVISOR [facility] GRAM STAIN Rare Gram Positive Bacilli 08/01/2023 4:58 PM MATERIALS SUPERVISOR [facility] Other SPUTUM SPECIMEN / Unknown Non-Phlebotomy Collection / Unknown 07/31/2023 8:23 PM MATERIALS SUPERVISOR 07/31/2023 8:30 PM MATERIALS SUPERVISOR Archie Hilario MD MICROBIOLOGY - GENERAL ORDERABL ES Final Result [facility] [address] [place] [address], [place] * CULTURE, RESPIRATORY, LOWER (07/31/2023 8:23 PM MATERIALS SUPERVISOR) CULTURE RESULTS Few Mixed janine 08/02/2023 2:[address] [facility] Comment:PROBABLE USUAL JANINE FOR THIS SPECIMEN SOURCE Culture SPUTUM SPECIMEN / Unknown Non-Phlebotomy Collection / Unknown 07/31/2023 8:23 PM MATERIALS SUPERVISOR 07/31/2023 8:30 PM MATERIALS SUPERVISOR us Archie Hilario MD MICROBIOLOGY - GENERAL ORDERABL ES Final Result Performing Organization Address City/[facility]/ZIP Co de Phone Number [facility] [address] [place] [address], * (ABNORMAL) POCT Glucose (07/31/2023 7:04 AM MATERIALS SUPERVISOR) GLUCOSE,BEDSID E POCT 193(H) 70 - 99 mg/dL 07/31/2023 7:10 AM MATERIALS SUPERVISOR [facility] Comment:Patient RN Performed Blood 07/31/2023 7:04 AM MATERIALS SUPERVISOR 07/31/2023 7:10 AM MATERIALS SUPERVISOR us None Provider POINT OF CARE TESTING Final Resu lt Performing Organization Address City/[facility]/ZIP Co de Phone Number [facility] [place] [address] * (ABNORMAL) Blood Gases, Arterial w/ O2 Saturation (07/30/2023 10:15 AM MATERIALS SUPERVISOR) Only the most recent of2 resultswithin the time period is included. O2 STATUS 35L, 90% heated high flow 07/30/2023 10:19 AM MATERIALS SUPERVISOR [facility] PH ARTERIAL 7.43 7.35 - 7.45 07/30/2023 10:19 AM MATERIALS SUPERVISOR [facility] PC02 (ARTERIAL) 34(L) 35 - 45 mmHg 07/30/2023 10:19 AM MATERIALS SUPERVISOR [facility] PO2 (ARTERIAL) 76 75 - 100 mmHg 07/30/2023 10:19 AM [facility] O2 SAT ART, MEASURED 92(L) 94 - 100 % 07/30/2023 10:19 AM [facility] BASE ARTERIAL -0.1 -2.0 - 2.0 mmol/L 07/30/2023 10:19 AM [facility] BICARBONATE 23.0 22.0 - 26.0 mmol/L 07/30/2023 10:19 AM [facility] BERRY'S TEST RESULTS Positive - Right Radial 07/30/2023 10:19 AM [facility] CARBOXYHEMOGLOBIN 0.9 0.0 - 5.0 % 07/30/2023 10:19 AM [facility] METHEMOGLOBIN 0.5 0.0 - 1.5 % 07/30/2023 10:19 AM [facility] ART Blood Gas Arterial Punctur e / Unknown 07/30/2023 10:15 AM [facility] 07/30/2023 10:16 AM [facility] us Archie Hilario MD CHEMISTRY ORDERABLES Final Resu lt [facility] [place] [address] * (ABNORMAL) Basic Metabolic Panel w/ Calcium Total (07/30/2023 4:10 AM MATERIALS SUPERVISOR) SODIUM 135(L) 136 - 145 mmol/L 07/30/2023 5:04 AM [facility] POTASSIUM 4.2 3.5 - 5.1 mmol/L 07/30/2023 5:04 AM [facility] CHLORIDE 108(H) 98 - 107 mmol/L 07/30/2023 5:04 AM [facility] CO2, VENOUS 19(L) 22 - 30 mmol/L 07/30/2023 5:04 AM [facility] ANION GAP 12.2 <18.0 mmol/L 07/30/2023 5:04 AM MATERIALS SUPERVISOR [facility] GLUCOSE 112(H) 70 - 99 mg/dL 07/30/2023 5:04 AM MATERIALS SUPERVISOR [facility] BUN 27(H) 8 - 26 mg/dL 07/30/2023 5:04 AM MATERIALS SUPERVISOR [facility] CREATININE, BLOOD 0.73 0.70 - 1.30 mg/dL 07/30/2023 5:04 AM MATERIALS SUPERVISOR [facility] BUN/CREATININE RATIO 37(H) 12 - 20 ratio 07/30/2023 5:04 AM MATERIALS SUPERVISOR [facility] CALCIUM 8.1(L) 8.7 - 10.5 mg/dL 07/30/2023 5:04 AM MATERIALS SUPERVISOR [facility] GFR, ESTIMATED >60 >=60 07/30/2023 5:04 AM MATERIALS SUPERVISOR [facility] Comment: Creatinine Clearance is the preferred criteria for selecting drug dose adjustments in renally impaired patients. ??The GFR is provided as additional pertinent clinical information. GFR is reported in mL/min/1.73 sq m. Calculation based on the Chronic Kidney Disease Epidemiology Collaboration (CKD- EPI) equation refit without adjustment for race. GFR, EST. >60 >=60 023 5:04 AM MATERIALS SUPERVISOR [facility] GFR, EST. NONAFRICAN >60 >=60 07/30/2023 5:04 AM MATERIALS SUPERVISOR [facility] Blood Venipuncture / Unknown 07/30/2023 4:10 AM MATERIALS SUPERVISOR 07/30/2023 4:40 AM MATERIALS SUPERVISOR us Archie Hilario MD CHEMISTRY ORDERABLES Final Resu lt [facility] [place] [address] * CT ANGIO CHEST W/WO CONTRAST WITH PP (POST PROCESSING) (07/29/2023 1:54 PM MATERIALS SUPERVISOR) Anatomical Region Laterality Modality vascular N/A Computed Tomogra phy 07/29/2023 2:33 PM MATERIALS SUPERVISOR Impressions 07/29/2023 2:35 PM MATERIALS SUPERVISOR IMPRESSION: 1. ?? No PE. 2. ?? Lung findings unchanged. ?? Narrative 07/29/2023 2:35 PM MATERIALS SUPERVISOR EXAM DESCRIPTION: ?? CT ANGIO CHEST W/WO CONTRAST WITH PP (POST PROCESSING) REASON FOR STUDY: ?? E/evated d-dimer 1.71 today ? TECHNIQUE: CT angiogram of the chest performed with intravenous contrast using helical scanning technique with dynamic intravenous contrast injection. Reconstructed coronal and sagittal MPR images reviewed. All images stored on PACS. ?? 3D MIP images rendered on scanning unit and reviewed at time of interpretation. ??Automated exposure control was used as a dose optimization technique for this examination. CONTRAST TYPE/DOSE: ?? 100mL of IOPAMIDOL 76 % IV SOLN ??injected via ?? Intravenous COMPARISON: ?? Same day, 12/10/2010 REFERENCE: Per ACR white paper recommendations, unless otherwise specified no follow-up imaging is recommended for incidental renal and adrenal lesions per consensus recommendations based on imaging criteria. Further lab evaluation could be pursued based on clinical findings. FINDINGS: ??VASCULATURE: ??Bolus timing is adequate and no filling defect is seen in the pulmonary arterial tree. ?Systemic arterial structures are partially opacified and reveal no acute abnormality. ? MEDIASTINUM/MILIND: ??Heart size normal. ??Coronary artery calcifications. ??Mildly prominent lymph nodes similar to the prior. ?? Thoracic inlet unremarkable. LUNGS: ??Coarse bibasilar opacities and small effusions unchanged. ?? Mild interlobular septal thickening. ??Bronchial wall thickening. ?? Trachea and major airways patent. UPPER ABDOMEN: ??Unremarkable. MUSCULOSKELETAL: ??Moderate lower thoracic endplate osteophytosis. ?? Cervical disc disease. ?? CHEST WALL: ??Unremarkable. ?? THIS IS AN ELECTRONICALLY VERIFIED FINAL REPORT 07/29/2023 2:33 PM - Electronically signed by ??Augusto Spencer M.D. AR: JOHN D: ??07/29/2023 2:33 PM T: ??07/29/2023 2:33 PM Report ID: [id number] Reading Location: ??[id number] Procedure Note Augusto Spencer MD - 07/29/2023 EXAM DESCRIPTION: CT ANGIO CHEST W/WO CONTRAST WITH PP (POST PROCESSING) REASON FOR STUDY: E/evated d-dimer 1.71 today TECHNIQUE: CT angiogram of the chest performed with intravenous contrast using helical scanning technique with dynamic intravenous contrast injection. Reconstructed coronal and sagittal MPR images reviewed. All images stored on PACS. 3D MIP images rendered on scanning unit and reviewed at time of interpretation. Automated exposure control was used as a dose optimization technique for this examination. CONTRAST TYPE/DOSE: 100mL of IOPAMIDOL 76 % IV SOLN injected via Intravenous COMPARISON: Same day, 12/10/2010 REFERENCE: Per ACR white paper recommendations, unless otherwise specified no follow-up imaging is recommended for incidental renal and adrenal lesions per consensus recommendations based on imaging criteria. Further lab evaluation could be pursued based on clinical findings. FINDINGS: VASCULATURE: Bolus timing is adequate and no filling defect is seen in the pulmonary arterial tree. Systemic arterial structures are partially opacified and reveal no acute abnormality. MEDIASTINUM/MILIND: Heart size normal. Coronary artery calcifications. Mildly prominent lymph nodes similar to the prior. Thoracic inlet unremarkable. LUNGS: Coarse bibasilar opacities and small effusions unchanged. Mild interlobular septal thickening. Bronchial wall thickening. Trachea and major airways patent. UPPER ABDOMEN: Unremarkable. MUSCULOSKELETAL: Moderate lower thoracic endplate osteophytosis. Cervical disc disease. CHEST WALL: Unremarkable. THIS IS AN ELECTRONICALLY VERIFIED FINAL REPORT 07/29/2023 2:33 PM - Electronically signed by Augusto Spencer M.D. AR: JOHN Report ID: [id number] Reading Location: [id number] IMPRESSION: 1. No PE. 2. Lung findings unchanged. Uri Ny MD IM CT ORDERABLES Final Result * CT CHEST W/O CONTRAST (07/29/2023 1:19 PM MATERIALS SUPERVISOR) Anatomical Region Laterality Modality Chest N/A Computed Tomogra phy 07/29/2023 1:42 PM MATERIALS SUPERVISOR Impressions 07/29/2023 1:45 PM MATERIALS SUPERVISOR IMPRESSION: 1. ?? Examination is degraded by respiratory motion. ?? There are small bilateral pleural effusions and bilateral pulmonary opacities, consistent with pneumonia. ?? 2. ??Mildly enlarged precarinal lymph node which may be reactive. 3. ??Coronary artery disease 4. ??Small hiatal hernia Narrative 07/29/2023 1:45 PM MATERIALS SUPERVISOR EXAM DESCRIPTION: ?? CT CHEST W/O CONTRAST REASON FOR STUDY: ?? Admitted 07/28/23 with resp failure. c/o sob and cough x one week. CXR notes interstitial and airspace infiltrates. H/o stroke ?? TECHNIQUE: CT scan of the chest performed without intravenous contrast using helical scanning technique. Reconstructed coronal and sagittal MPR images reviewed. ??All images stored on PACS. ??Automated exposure control was used as a dose optimization technique for this examination. COMPARISON: ?? None REFERENCE: Per ACR white paper recommendations, unless otherwise specified no follow-up imaging is recommended for incidental renal and adrenal lesions per consensus recommendations based on imaging criteria. Further lab evaluation could be pursued based on clinical findings. FINDINGS: The sensitivity for detection of solid visceral lesions is diminished without the use of intravenous contrast. LUNGS: ?? Respiratory motion degrades evaluation of the pulmonary parenchyma. ??There are bilateral lower lobe opacities, most likely representing pneumonia. ??There are a few ground-glass opacities in the upper lobes which may be related to pneumonia or subsegmental atelectasis. ??The central airways are patent. PLEURA: ?? Small bilateral pleural effusions. ??No pneumothorax. MEDIASTINUM/MILIND: ?? Mildly enlarged precarinal lymph node measuring 12 mm in short axis. ??Few other prominent but nonenlarged mediastinal lymph nodes are present. HEART: ?? Heart size is normal with no pericardial effusion. CORONARY ARTERY CALCIFICATION: ??Multivessel coronary artery calcifications are present. VASCULATURE: ?? [id number] calcified plaque in the aorta without aneurysm. AXILLA: ?? No adenopathy. CHEST WALL: ?? No masses. ??No subcutaneous air. HARDWARE/LINES/TUBES: ?? None. UPPER ABDOMEN: ?? Small hiatal hernia. MUSCULOSKELETAL: ?? No suspicious osseous lesion. ??Degenerative changes in the lower thoracic spine including multilevel bridging anterior osteophytes OTHER: ?? No other significant abnormality. THIS IS AN ELECTRONICALLY VERIFIED FINAL REPORT 07/29/2023 1:42 PM - Electronically signed by ??Joe Gómez M.D. AM: AM D: ??07/29/2023 1:42 PM T: ??07/29/2023 1:42 PM Report ID: [id number] Reading Location: ??[id number] Procedure Note Joe Gómez MD - 07/29/2023 EXAM DESCRIPTION: CT CHEST W/O CONTRAST REASON FOR STUDY: Admitted 07/28/23 with resp failure. c/o sob and cough x one week. CXR notes interstitial and airspace infiltrates. H/o stroke TECHNIQUE: CT scan of the chest performed without intravenous contrast using helical scanning technique. Reconstructed coronal and sagittal MPR images reviewed. All images stored on PACS. Automated exposure control was used as a dose optimization technique for this examination. COMPARISON: None REFERENCE: Per ACR white paper recommendations, unless otherwise specified no follow-up imaging is recommended for incidental renal and adrenal lesions per consensus recommendations based on imaging criteria. Further lab evaluation could be pursued based on clinical findings. FINDINGS: The sensitivity for detection of solid visceral lesions is diminished without the use of intravenous contrast. LUNGS: Respiratory motion degrades evaluation of the pulmonary parenchyma. There are bilateral lower lobe opacities, most likely representing pneumonia. There are a few ground-glass opacities in the upper lobes which may be related to pneumonia or subsegmental atelectasis. The central airways are patent. PLEURA: Small bilateral pleural effusions. No pneumothorax. MEDIASTINUM/MILIND: Mildly enlarged precarinal lymph node measuring 12 mm in short axis. Few other prominent but nonenlarged mediastinal lymph nodes are present. HEART: Heart size is normal with no pericardial effusion. CORONARY ARTERY CALCIFICATION: Multivessel coronary artery calcifications are present. VASCULATURE: Gsho-gf-[id number] calcified plaque in the aorta without aneurysm. AXILLA: No adenopathy. CHEST WALL: No masses. No subcutaneous air. HARDWARE/LINES/TUBES: None. UPPER ABDOMEN: Small hiatal hernia. MUSCULOSKELETAL: No suspicious osseous lesion. Degenerative changes in the lower thoracic spine including multilevel bridging anterior osteophytes OTHER: No other significant abnormality. THIS IS AN ELECTRONICALLY VERIFIED FINAL REPORT 07/29/2023 1:42 PM - Electronically signed by Joe Gómez M.D. AM: AM Report ID: [id number] Reading Location: [id number] IMPRESSION: 1. Examination is degraded by respiratory motion. There are small bilateral pleural effusions and bilateral pulmonary opacities, consistent with pneumonia. 2. Mildly enlarged precarinal lymph node which may be reactive. 3. Coronary artery disease 4. Small hiatal hernia Uri Ny MD IMG CT ORDERABLES Final Result * (ABNORMAL) D-Dimer (07/29/2023 11:46 AM MATERIALS SUPERVISOR) D DIMER 1.71(H) <0.50 mcg/mL FEU 07/29/2023 12:08 PM MATERIALS SUPERVISOR [facility] Blood Venipuncture / Unknown 07/29/2023 11:46 AM MATERIALS SUPERVISOR 07/29/2023 11:46 AM MATERIALS SUPERVISOR Narrative [facility] - 07/29/2023 12:08 PM MATERIALS SUPERVISOR The FDA has approved this method to exclude the diagnosis of DVT and/or PE at the cutoff value of <0.50 mcg/mL FEU. Uri Ny MD HEMATOLOGY ORDERABLES Fi nal Result Performing Organization Address [facility] Co de Phone Number [facility] [address] [place] [address] * Lactic Acid (Lactate) (07/29/2023 5:14 AM MATERIALS SUPERVISOR) Only the most recent of3 resultswithin the time period is included. [facility] LACTIC ACID 1.4 0.7 - 2.0 mmol/L 07/29/2023 5:47 AM MATERIALS SUPERVISOR [facility] Blood Venipuncture / Unknown 07/29/2023 5:14 AM MATERIALS SUPERVISOR 07/29/2023 5:28 AM MATERIALS SUPERVISOR Archie Hilario MD CHEMISTRY ORDERABLES Final Resu lt Performing Organization Address City/[facility]/ZIP Co de Phone Number [facility] [address] [place] [address] * TROPONIN I, HIGH SENSITIVITY (HSTRP) (07/29/2023 12:18 AM MATERIALS SUPERVISOR) Only the most recent of2 resultswithin the time period is included. Pathologist [facility] TROPONIN I, HIGH SENSITIVITY- JAIME 11 <=35 ng/L 07/29/2023 1:00 AM MATERIALS SUPERVISOR [facility] Comment: High-sensitivity troponin I results are reported in ng/L making the result appear to be 1,000 times higher than the contemporary troponin I value which is reported in ng/ml. Results from Jaime. Blood Venipuncture / Unknown 07/29/2023 12:18 AM MATERIALS SUPERVISOR 07/29/2023 12:30 AM MATERIALS SUPERVISOR us Ame Scanlon APRN, SQL SERVER BI DEVELOPER CHEMISTRY ORDERABLES Final Result [facility] [address] [place] [address] * ADULT TRANS THORACIC ECHO 2D COMPLETE (07/28/2023 7:16 PM MATERIALS SUPERVISOR) [facility] AV Peak Grad mmHg 4.41 mmHg RESULTING AGENCY Mean Aortic Valve Gradient (MAVG) 2 mmHg RESULTING AGENCY LV end mariel diam cm 5.01 cm RESULTING AGENCY LV end sys diam cm 3.69 cm RESULTING AGENCY Aortic Root Diam cm 3.1 cm RESULTING AGENCY LA vol index ml/m2 25 ml/m2 RESULTING AGENCY LVOT Peak Ranjith m/sec 0.68 m/sec RESULTING AGENCY AV Peak Ranjith m/sec 1.05 m/sec RESULTING AGENCY MVA by PHT cm2 3.67 cm2 RESUL TING AGENCY TR Ranjith m/sec 2.29 m/sec RESULTI NG AGENCY E/E' 11.8 RESULTING AGENCY AV Area (VTI) cm2 2.08 cm2 RESULTING AGENCY SEPTUM DIASTOLIC CM 0.84 cm RESULTING AGENCY PW DIASTOLIC CM 1.04 cm RESU LTING AGENCY LA VOLUME 53.3 ml RESULTING AGENCY LV EF(estimated)% 50 RESULTING AGENCY Anatomical Region Laterality Modality CARDIO N/A Ultrasound Narrative 08/01/2023 8:21 AM MATERIALS SUPERVISOR Transthoracic Echocardiography Report (TTE) Patient name ?MARVA Serrato ? 1945 Patient ID ([facility]) ?[id number] ? Study Date07/28/2023 Technical quality: Adequate Limitation Reason: Lung artifact Type of Study: TTE procedure: Adult Trans Thoracic Echo 2D Complete. Priority:STATHR: 105 bpmBP: 128/73 mmHg Conclusions Summary Concentric LV remodelling. Low normal LV systolic function, LVEF estimated 50%. Indeterminate diastolic function due to atrial fibrillation. Mildly dilated RV with mildly reduced systolic function. No significant valvular abnormalities. Inadequate TR jet to estimate PASP. Biatrial enlargement. Dilated IVC with respiratory variation. Normal visualized portion of aorta. Findings Mitral Valve The mitral valve is normal. There is no evidence of mitral stenosis. There is no significant mitral regurgitation. Aortic Valve The aortic valve is trileaflet with normal structure. There is no evidence of aortic valve stenosis. There is no significant aortic valve insufficiency. Tricuspid Valve The tricuspid valve is normal. There is no evidence of tricuspid stenosis. There is no significant tricuspid regurgitation. There is no evidence of pulmonary hypertension. Pulmonic Valve The pulmonic valve structure appears normal. There is no evidence of pulmonic stenosis. There is no significant pulmonic valve regurgitation. Left Atrium Mild LA enlargement Left Ventricle Concentric LV remodelling. Low normal LV systolic function, LVEF estimated 50%. indeterminate diastolic function due to rhythm. Right Atrium Mild RA enlargement Right Ventricle Mildly dilated right ventricle with mildly reduced systolic function Miscellaneous IVC dilated with normal respiratory variation. Aortic root and proximal ascending aorta are normal in size. Valves Mitral Valve Area (PHT): 3.67 cm^2 Peak E-Wave: 1.07 m/s ?Deceleration Time: 205 msec Peak Gradient: 4.58 mmHg P1/2t: 60 msec Tissue Doppler E' Velocity: 0.08 m/s ?E/E':11.8 ?E/Lat E': 11.8 ?E/Med E':12.9 Aortic Valve Area (continuity): 2.08 cm^2 ? Mean Velocity: 0.72 m/s Area (VTI):2.08 cm^2 ? Mean Gradient: 2 mmHg Peak Velocity: 1.05 m/s ?AV VTI: 18 cm Peak Gradient: 4.41 mmHg Cusp Separation: 2.2 cm Tricuspid Valve Peak E-Wave: 0.57 m/s Peak Gradient: 1.32 mmHg TR Velocity: 2.29 m/s TR Gradient: 20.98 mmHg Pulmonic Valve Peak Velocity: 0.78 m/s Peak Gradient: 2.46 mmHg LVOT Peak Velocity: 0.68 m/s ? Mean Velocity: 0.43 m/s Peak Gradient: 2 mmHg ? Mean Gradient: 1 mmHg LVOT Diameter: 2 cm ? LVOT VTI: 11.9 cm Stroke Volume: 37 ml ?Stroke Volume Index: 17.05 ml/m^2 Structures Left Ventricle Diastolic Dimension: 5.01 cm ? Systolic Dimension: 3.69 cm Septum Diastolic: 0.84 cm ?Septum Systolic: 1.2 cm PW Diastolic: 1.04 cm ?PW Systolic: 1.09 cm Diastolic Length: 24.6 cm ?Systolic Length: 13.7 cm EF Calculated: 49.33% ?CI: 1.81 l/min*m^2 CO: 3.92 l/min RWT: 0.42 ?LV EDV: 74.8 ml FS: 26.35 % ?LV EDV Index: 34 m^2 LV Length: 7.3 cm ?LV ESV: 37.9 ml LVOT Diameter: 2 cm ?LV ESV Index: 17 m^2 Left Atrium LA Dimension: 4.4 cm ?LA Area: 22 cm^2 LA/Aorta: 1.42 ?LA Volume: 53.3 ml LA Systolic Pressure: 16.81 mmHg ?LA Index: 25ml/m^2 Right Atrium ? RA Area: 19 cm^2 Great Vessels Aorta Aorta Root:3.1 cm Contractility Score LV regional wall motion: (0-Not visualized 1-Normal 1'-Hyperkinesis 2-Hypokinesis 3-Akinesis 4-Dyskinesis 5-Aneurysm) Billing ICD 9 Codes 1) 148.9-Atrial Fibrillation/ Atrial Flutter. Demographics Age ?77 ?Gender ? Male Race ? Height ? 72.01 in. ?Weight ? 208.5 lbs. ?BMI (BSA) ?28.27 kg/m^2 (2.17 ? m^2) Plant Reliability Engineer ?Vipul Serrato Room ? 2 Interpreting ? Renae ? Referring ?YOVANY VILLAGOMEZ Physician ?Barbara ?Physician Procedure Note Barbara Macdonald MD PhD - 08/01/2023 Transthoracic Echocardiography Report (TTE) Patient name MARVA Serrato Valerio 1945 Patient ID (UPI) [id number] Study Date07/28/2023 Technical quality: Adequate Limitation Reason: Lung artifact Type of Study: TTE procedure: Adult Trans Thoracic Echo 2D Complete. Priority:STATHR: 105 bpmBP: 128/73 mmHg Conclusions Summary Concentric LV remodelling. Low normal LV systolic function, LVEF estimated 50%. Indeterminate diastolic function due to atrial fibrillation. Mildly dilated RV with mildly reduced systolic function. No significant valvular abnormalities. Inadequate TR jet to estimate PASP. Biatrial enlargement. Dilated IVC with respiratory variation. Normal visualized portion of aorta. Findings Mitral Valve The mitral valve is normal. There is no evidence of mitral stenosis. There is no significant mitral regurgitation. Aortic Valve The aortic valve is trileaflet with normal structure. There is no evidence of aortic valve stenosis. There is no significant aortic valve insufficiency. Tricuspid Valve The tricuspid valve is normal. There is no evidence of tricuspid stenosis. There is no significant tricuspid regurgitation. There is no evidence of pulmonary hypertension. Pulmonic Valve The pulmonic valve structure appears normal. There is no evidence of pulmonic stenosis. There is no significant pulmonic valve regurgitation. Left Atrium Mild LA enlargement Left Ventricle Concentric LV remodelling. Low normal LV systolic function, LVEF estimated 50%. indeterminate diastolic function due to rhythm. Right Atrium Mild RA enlargement Right Ventricle Mildly dilated right ventricle with mildly reduced systolic function Miscellaneous IVC dilated with normal respiratory variation. Aortic root and proximal ascending aorta are normal in size. Valves Mitral Valve Area (PHT): 3.67 cm^2 Peak E-Wave: 1.07 m/s Deceleration Time: 205 msec Peak Gradient: 4.58 mmHg P1/2t: 60 msec Tissue Doppler E' Velocity: 0.08 m/s E/E':11.8 E/Lat E': 11.8 E/Med E':12.9 Aortic Valve Area (continuity): 2.08 cm^2 Mean Velocity: 0.72 m/s Area (VTI):2.08 cm^2 Mean Gradient: 2 mmHg Peak Velocity: 1.05 m/s AV VTI: 18 cm Peak Gradient: 4.41 mmHg Cusp Separation: 2.2 cm Tricuspid Valve Peak E-Wave: 0.57 m/s Peak Gradient: 1.32 mmHg TR Velocity: 2.29 m/s TR Gradient: 20.98 mmHg Pulmonic Valve Peak Velocity: 0.78 m/s Peak Gradient: 2.46 mmHg LVOT Peak Velocity: 0.68 m/s Mean Velocity: 0.43 m/s Peak Gradient: 2 mmHg Mean Gradient: 1 mmHg LVOT Diameter: 2 cm LVOT VTI: 11.9 cm Stroke Volume: 37 ml Stroke Volume Index: 17.05 ml/m^2 Structures Left Ventricle Diastolic Dimension: 5.01 cm Systolic Dimension: 3.69 cm Septum Diastolic: 0.84 cm Septum Systolic: 1.2 cm PW Diastolic: 1.04 cm PW Systolic: 1.09 cm Diastolic Length: 24.6 cm Systolic Length: 13.7 cm EF Calculated: 49.33% CI: 1.81 l/min*m^2 CO: 3.92 l/min RWT: 0.42 LV EDV: 74.8 ml FS: 26.35 % LV EDV Index: 34 m^2 LV Length: 7.3 cm LV ESV: 37.9 ml LVOT Diameter: 2 cm LV ESV Index: 17 m^2 Left Atrium LA Dimension: 4.4 cm LA Area: 22 cm^2 LA/Aorta: 1.42 LA Volume: 53.3 ml LA Systolic Pressure: 16.81 mmHg LA Index: 25ml/m^2 Right Atrium RA Area: 19 cm^2 Great Vessels Aorta Aorta Root:3.1 cm Contractility Score LV regional wall motion: (0-Not visualized 1-Normal 1'-Hyperkinesis 2-Hypokinesis 3-Akinesis 4-Dyskinesis 5-Aneurysm) Billing ICD 9 Codes 1) 148.9-Atrial Fibrillation/ Atrial Flutter. Demographics Age 77 Gender Male Race Height 72.01 in. Weight 208.5 lbs. BMI (BSA) 28.27 kg/m^2 (2.17 m^2) Plant Reliability Engineer Vipul Serrato Room 2 Interpreting Renae Referring YOVANY VILLAGOMEZ Physician Barbara Physician Adriana Shine MD IMG ECHO ORDERABLES Edited Res ult - Final * (ABNORMAL) MRSA NASAL PCR (07/28/2023 1:53 PM MATERIALS SUPERVISOR) MRSA PCR RESULT Positive( A) Negative, Invalid, Indeterminate 07/28/2023 5:00 PM MATERIALS SUPERVISOR [facility] Other NASOPHARYNGEAL SWAB / Unknown Non-Phlebotomy Collection / Unknown 07/28/2023 1:53 PM MATERIALS SUPERVISOR 07/28/2023 2:02 PM MATERIALS SUPERVISOR Adriana hSine MD MICROBIOLOGY - GENERAL ORDERAB LES Final Result [facility] [address] [place] [address] * (ABNORMAL) Blood Gases, Venous w/ O2 Saturation (07/28/2023 8:52 AM MATERIALS SUPERVISOR) O2 STATUS 0 07/28/2023 8:56 AM MATERIALS SUPERVISOR [facility] PH VENOUS 7.39 7.34 - 7.43 07/28/2023 8:56 AM MATERIALS SUPERVISOR [facility] PCO2 (VENOUS) 34(L) 41 - 51 mmHg 07/28/2023 8:56 AM MATERIALS SUPERVISOR [facility] PO2 VENOUS 40 30 - 50 mmHg 07/28/2023 8:56 AM MATERIALS SUPERVISOR [facility] O2 SAT JONI, MEASURED 62 60 - 85 % 07/01 8:56 AM MATERIALS SUPERVISOR [facility] BICARBONATE 20.5(L) 22.0 - 26.0 mmol/L 07/28/2023 8:56 AM MATERIALS SUPERVISOR [facility] BASE VENOUS -3.2(L) -2.0 - 3.0 mmol/L 07/28/2023 8:56 AM MATERIALS SUPERVISOR [facility] CARBOXYHEMOGLOBIN 2.5 0.0 - 5.0 % 07/28/2023 8:56 AM MATERIALS SUPERVISOR [facility] METHEMOGLOBIN 0.3 0.0 - 1.5 % 07/28/2023 8:56 AM [facility] JONI Blood Gas Venipuncture / Unknown 07/28/2023 8:52 AM MATERIALS SUPERVISOR 07/28/2023 8:52 AM MATERIALS SUPERVISOR Narrative [facility] - 07/28/2023 8:56 AM MATERIALS SUPERVISOR Interpretation - The usual approach to interpreting a VBG consists of using the venous measurements to estimate the corresponding arterial values, then using these estimated values for clinical decision-making exactly as if an ABG had been performed. The difference between the venous measurements and the arterial measurements depends upon the site of venous sampling and varies among laboratories. Correlation with arterial blood gases - Although arterial blood gas analysis is more accurate than venous analysis for the assessment of oxygenation, measurement of PCO2, pH, and HCO3 are similar with some minor adjustments: The central venous pH is usually 0.03 to 0.05 pH units lower than the arterial pH and the PCO2 is usually 4 to 5 mmHg higher, with little or no increase in HCO3. Mixed venous blood (ie, SvO2 drawn from a pulmonary artery catheter) gives results similar to central venous blood (ie, ScvO2 drawn from a central venous catheter). The peripheral venous pH is approximately 0.02 to 0.04 pH units lower than the arterial pH, the venous serum HCO3 concentration is approximately 1 to 2 meq/L higher, and the venous PCO2 is approximately 3 to 8 mmHg higher. There are no venous to arterial conversions for ScvO2, SvO2, or peripheral venous oxyhemoglobin saturation (PvO2). Importantly, sufficient variability between arterial and venous blood gas values may exist such that periodic correlation between arterial and venous blood gas values is always prudent. Mason Culp MD CHEMISTRY ORDERABLES Final Result Performing Organization Address City/[facility] Co de Phone Number [facility] [place] [address] * Gold Top Tube (07/28/2023 8:50 AM MATERIALS SUPERVISOR) Blood No Phlebotomy Charged / Unknown 07/28/2023 8:50 AM MATERIALS SUPERVISOR 07/28/2023 8:59 AM MATERIALS SUPERVISOR Mason Culp MD CHEMISTRY ORDERABLES Final Result Performing Organization Address City/[facility]/ZIP Co de Phone Number [facility] [address] [place] [address] * Blue Top Tube (07/28/2023 8:50 AM MATERIALS SUPERVISOR) Blood No Phlebotomy Charged / Unknown 07/28/2023 8:50 AM MATERIALS SUPERVISOR 07/28/2023 8:59 AM MATERIALS SUPERVISOR Mason Culp MD HEMATOLOGY ORDERABLES Mireya l Result [facility] [address] [place] [address] * (ABNORMAL) RSV,SARS-COV-2,INFLUENZA A&B BY PCR (07/28/2023 8:50 AM MATERIALS SUPERVISOR) FLU A Negative Negative, Error 07/28/2023 9:37 AM MATERIALS SUPERVISOR [facility] FLU B Negative Negative 07/28/2023 9:37 AM MATERIALS SUPERVISOR [facility] RESP SYNC VIRUS Positive(A) Negative 07/28/2023 9:37 AM MATERIALS SUPERVISOR [facility] SARSCOV2 NOT DETECTED (Reference Range for this test is Not Detected) 07/28/2023 9:37 AM MATERIALS SUPERVISOR [facility] Comment:This test was perfor med by a RT-PCR method. Swab NASOPHARYNGEAL SWAB / Unknown Non-Phlebotomy Collection / Unknown 07/28/2023 8:50 AM MATERIALS SUPERVISOR 07/28/2023 8:58 AM MATERIALS SUPERVISOR Narrative [facility] - 07/28/2023 9:37 AM MATERIALS SUPERVISOR This test has not been FDA cleared or approved; the test has been authorized by FDA under an Emergency Use Authorization (EUA) for use by laboratories certified under the CLIA that meet the requirements to perform moderate, high or waived complexity tests. Authorized Fact Sheets about this test for providers and patients are available at: https://www.fda.gov/medical-devices/zxmepfuti-kwvoyvmtfz-ylygthm-devices/emergen -us e-authorizations us Mason Culp MD MICROBIOLOGY - GENERAL ORD ERABLES Final Result [facility] [address] [place] [address] * Procalcitonin (07/28/2023 8:50 AM MATERIALS SUPERVISOR) PROCALCITONIN 0.09 <=0.25 ng/mL 07/28/2023 9:41 AM MATERIALS SUPERVISOR [facility] Blood Venipuncture / Unknown 07/28/2023 8:50 AM MATERIALS SUPERVISOR 07/28/2023 8:58 AM MATERIALS SUPERVISOR Mason Culp MD IMMUNOLOGY ORDERABLES Mireya l Result Performing Organization Address City/[facility]/ZIP Co de Phone Number [facility] [address] [place] [address] * Blood Culture #2 (07/28/2023 8:50 AM MATERIALS SUPERVISOR) Only the most recent of2 resultswithin the time period is included. CULTURE RESULTS NO GROWTH WITHIN 5 DAYS, FINAL RESULT 08/02/2023 9:00 AM MATERIALS SUPERVISOR [facility] Culture BLOOD SPECIMEN / Unknown Venipuncture / Unknown 07/28/2023 8:50 AM MATERIALS SUPERVISOR 07/28/2023 8:57 AM MATERIALS SUPERVISOR Mason Culp MD MICROBIOLOGY - GENERAL ORD ERABLES Final Result Performing Organization Address City/[facility]/ZIP Co de Phone Number [facility] [address] [place] [address], * (ABNORMAL) B-Type Natriuretic Peptide (BNP) (07/28/2023 8:50 AM MATERIALS SUPERVISOR) B TYPE NATRIURETIC PEPTIDE 1,066(H) <100 pg/mL 07/28/2023 9:37 AM MATERIALS SUPERVISOR [facility] Blood Venipuncture / Unknown 07/28/2023 8:50 AM MATERIALS SUPERVISOR 07/28/2023 8:58 AM MATERIALS SUPERVISOR Mason Culp MD CHEMISTRY ORDERABLES Final Result [facility] [address] [place] [address] * EKG 12 LEAD (07/28/2023 8:38 AM MATERIALS SUPERVISOR) Ventricular Rate 118 BPM EXTERNAL EKG QRS Duration 76 ms EXTERNAL EKG Q-T Duration 314 ms EXTERNAL EKG QTC CALCULATION 440 ms EXTERNAL EKG R [place] 22 degrees EXTERNAL EKG T [place] 89 degrees EXTERNAL EKG 07/28/2023 8:38 AM MATERIALS SUPERVISOR Impressions EXTERNAL EKG - 08/09/2023 10:22 AM MATERIALS SUPERVISOR Atrial fibrillation with rapid ventricular response with premature ventricular or aberrantly conducted complexes Septal infarct , age undetermined Abnormal ECG No previous ECGs available Confirmed by Mega Gil ([id number]) on 08/09/2023 10:22:20 AM Narrative Procedure Note Mega Gil MD - 08/09/2023 IMPRESSION: Atrial fibrillation with rapid ventricular response with prematureventricular or aberrantly conducted complexes Septal infarct , age undetermined Abnormal ECG No previous ECGs available Confirmed by Mega Gil ([id number]) on 08/09/2023 10:22:20 AM us Mason Culp MD IMG ECG ORDERABLES Final R esult EXTERNAL EKG * EKG SCAN (07/28/2023 12:00 AM MATERIALS SUPERVISOR) 07/28/2023 us Provider Scan IMG ECG ORDERABLES Final Result SCAN documented in this encounter Visit Diagnoses Diagnosis Acute respiratory failure with hypoxia (HCC)- Primary Acute respiratory failure Acute respiratory failure with hypoxia (HCC) Acute respiratory failure Pneumonia of both lungs due to infectious organism, unspecified part of lung Atrial fibrillation, unspecified type (HCC) RSV infection Respiratory syncytial virus (RSV) Thrombocytopenia (HCC) Thrombocytopenia, unspecified RSV infection Respiratory syncytial virus (RSV) Essential hypertension, benign Anemia Anemia, unspecified Thrombocytopenia (HCC) Thrombocytopenia, unspecified documented in this encounter Admitting Diagnoses Diagnosis Acute respiratory failure with hypoxia (HCC) Acute respiratory failure documented in this encounter Administered Medications Inactive Administered Medications - up to 3 most recent administrations Medication Order MAR Action Action Date Dose Rate Site albuterol (PROVENTIL, VENTOLIN) (2.5 MG/3ML) 0.083% nebulizer solution 2.5 mg 2.5 mg, Nebulization, 3 TIMES DAILY, First dose on Mon08/04/23 at 0900, Until Discontinued, For RTA Severity Level 2Indications:Acute respiratory failure with hypoxia (HCC) Given 08/04/2023 7:29 AM MATERIALS SUPERVISOR 2.5 mg amLODIPine (NORVASC) tablet 10 mg 10 mg, Oral, DAILY, First dose (after last reorder) on Mon07/29/23 at 0900, Until Discontinued Given 07/30/2023 9:32 AM MATERIALS SUPERVISOR 10 mg azithromycin (ZITHROMAX) 500 mg in sodium chloride 0.9 % 250 mL IVPB 500 mg, Intravenous, ONCE, 1 dose, On Mon07/28/23 at 1000, Administer over 60 Minutes, Indications: Community Acquired Pneumonia, at 250 mL/hrIndications:Community Acquired Pneumonia New Bag 07/28/2023 9:45 AM MATERIALS SUPERVISOR 500 mg 250 mL/hr azithromycin (ZITHROMAX) tablet 500 mg 500 mg, Oral, DAILY, First dose on Mon07/29/23 at 0900, Until Discontinued, Indications: Community Acquired PneumoniaIndications:Communit y Acquired Pneumonia Given 07/30/2023 9:32 AM MATERIALS SUPERVISOR 500 mg Given 07/29/2023 9:05 AM MATERIALS SUPERVISOR 500 mg cefTRIAXone (ROCEPHIN) injection 2 g 2 g, Intravenous, ONCE, 1 dose, On Mon07/28/23 at 1000, If patient hemodynamically stable at 48 hours change ceftriaxone to oral beta-lactam for remainder of 5 day treatment., Indications: Community Acquired PneumoniaIndications:Community Acquired Pneumonia Given 07/28/2023 9:43 AM MATERIALS SUPERVISOR 2 g cefTRIAXone (ROCEPHIN) injection 2 g 2 g, Intravenous, EVERY 24 HOURS, 6 doses, First dose on Mon07/29/23 at 0900, Last dose on [place] 08/03/23 at 0900, Indications: Community Acquired PneumoniaIndications:Community Acquired Pneumonia Given 08/03/2023 9:47 AM MATERIALS SUPERVISOR 2 g Given 08/02/2023 9:53 AM MATERIALS SUPERVISOR 2 g Given 08/01/2023 8:38 AM MATERIALS SUPERVISOR 2 g cloZAPine (CLOZARIL) tablet 100 mg 100 mg, Oral, DAILY, First dose on Mon07/28/23 at 1630, Until Discontinued Given 08/07/2023 9:21 AM MATERIALS SUPERVISOR 100 mg Given 08/06/2023 8:21 AM MATERIALS SUPERVISOR 100 mg Given 08/05/2023 9:00 AM MATERIALS SUPERVISOR 100 mg cloZAPine (CLOZARIL) tablet 50 mg 50 mg, Oral, NIGHTLY, First dose on Mon08/02/23 at 2100, Until Discontinued Given 08/06/2023 9:12 PM MATERIALS SUPERVISOR 50 mg Given 08/05/2023 8:34 PM MATERIALS SUPERVISOR 50 mg Given 08/04/2023 8:36 PM MATERIALS SUPERVISOR 50 mg dexmedetomidine HCl in NaCl (PRECEDEX) 400 MCG/100ML infusion 0-1 mcg/kg/hr ? 93 kg (0-23.25 mL/hr, rounded to 0-23.3 mL/hr), Intravenous, CONTINUOUS, Starting on Mon07/28/23 at 2200, Until Mon07/30/23 at 1156, 1) Start infusion at 0.3 mcg/kg/hour. 2) Goal for Sedation is a RASS Score of -1. 3) Titrate infusion by 0.1 mcg/kg/hour every 15 minutes to Sedation Goal 4) Call physician if not at Sedation Goal at maximum of ordered dose range, for Hypotension, and for Bradycardia. New Bag 07/30/2023 11:10 AM MATERIALS SUPERVISOR 0.6 mcg/kg/hr 14 mL/hr Rate Change 07/30/2023 9:30 AM MATERIALS SUPERVISOR 0.6 mcg/kg/hr 14 mL/hr Rate Change 07/30/2023 7:20 AM MATERIALS SUPERVISOR 0.5 mcg/kg/hr 11.6 mL/h r dexmedetomidine HCl in NaCl (PRECEDEX) 400 MCG/100ML infusion 0.2-0.7 mcg/kg/hr ? 94.6 kg (4.73-16.555 mL/hr, rounded to 4.7-16.6 mL/hr), Intravenous, CONTINUOUS, Starting on Mon08/02/23 at 1700, Until Mon08/02/23 at 1954, 1) Start infusion at 0.2 mcg/kg/hour. 2) Goal for Sedation is a RASS Score of -2 to 0. 3) Titrate infusion by 0.1 mcg/kg/hour every 30 minutes to Sedation Goal 4) Call physician if not at Sedation Goal at maximum of ordered dose range, for Hypotension, and for Bradycardia. Rate Change 08/02/2023 7:28 PM MATERIALS SUPERVISOR 0.7 mcg/kg/hr 16.6 mL/hr Rate Change 08/02/2023 5:14 PM MATERIALS SUPERVISOR 0.6 mcg/kg/hr 14.2 mL/h r Rate Change 08/02/2023 5:00 PM MATERIALS SUPERVISOR 0.4 mcg/kg/hr 9.5 mL/hr dexmedetomidine HCl in NaCl (PRECEDEX) 400 MCG/100ML infusion 0.2-1 mcg/kg/hr ? 94.6 kg (4.73-23.65 mL/hr, rounded to 4.7-23.7 mL/hr), Intravenous, CONTINUOUS, Starting on Mon08/02/23 at 2030, Until Mon08/04/23 at 0831, 1) Start infusion at 0.2 mcg/kg/hour. 2) Goal for Sedation is a RASS Score of -2 to 0. 3) Titrate infusion by 0.1 mcg/kg/hour every 30 minutes to Sedation Goal 4) Call physician if not at Sedation Goal at maximum of ordered dose range, for Hypotension, and for Bradycardia. Rate Change 08/03/2023 5:11 PM MATERIALS SUPERVISOR 0.2 mcg/kg/hr 4.7 mL/hr New Bag 08/03/2023 1:58 PM MATERIALS SUPERVISOR 0.3 mcg/kg/hr 7.1 mL/hr New Bag 08/03/2023 4:30 AM MATERIALS SUPERVISOR 0.6 mcg/kg/hr 14.2 mL/hr DEXMEDETOMIDINE HCL IN NACL 400 MCG/100ML IV SOLN 1 dose, Starting on Mon08/02/23 at 1640, Until Mon08/02/23 at 1648, Created by cabinet shannonide dilTIAZem (CARDIZEM) injection 10 mg 10 mg, Intravenous, ONCE, 1 dose, On Mon07/28/23 at 1400, Call provider if heart rate still above 120 after dose is given. Given 07/28/2023 2:50 PM MATERIALS SUPERVISOR 10 mg enoxaparin (LOVENOX) injection 40 mg 40 mg, Subcutaneous, EVERY 24 HOURS SCHEDULED (Daily), First dose on Mon08/02/23 at 1000, Until Discontinued Given 08/07/2023 9:22 AM MATERIALS SUPERVISOR 40 mg Left Abdomen Given 08/06/2023 8:20 AM MATERIALS SUPERVISOR 40 mg Le ft Abdomen Given 08/05/2023 9:00 AM MATERIALS SUPERVISOR 40 mg Le ft Abdomen enoxaparin (LOVENOX) injection 90 mg 90 mg (rounded from 93 mg = 1 mg/kg ? 93 kg), Subcutaneous, ONCE, 1 dose, On Mon07/28/23 at 1030 Given 07/28/2023 10:36 AM MATERIALS SUPERVISOR 90 mg Left Abdomen hydrALAZINE (APRESOLINE) injection 10 mg 10 mg, Intravenous, EVERY 1 HOUR PRN, Starting on Mon08/02/23 at 1107, Until Mon08/07/23 at 1437, High Blood Pressure - 1st line, use for blood pressure above 145 Given 08/02/2023 3:16 PM MATERIALS SUPERVISOR 10 mg iopamidol (ISOVUE-370) 76 % injection 100 mL 100 mL, Intravenous, ONCE, 1 dose, On Mon07/29/23 at 1430 Given 07/29/2023 1:48 PM MATERIALS SUPERVISOR 100 mL ipratropium-albuterol (DUO-NEB) 0.5-2.5 (3) MG/3ML nebulizer solution 3 mL 3 mL, Nebulization, ONCE, 1 dose, On Mon07/28/23 at 0930 Given 07/28/2023 8:59 AM MATERIALS SUPERVISOR 3 mL ipratropium-albuterol (DUO-NEB) 0.5-2.5 (3) MG/3ML nebulizer solution 3 mL 3 mL, Nebulization, ONCE, 1 dose, On Mon07/28/23 at 1130 Given 07/28/2023 10:55 AM MATERIALS SUPERVISOR 3 mL ipratropium-albuterol (DUO-NEB) 0.5-2.5 (3) MG/3ML nebulizer solution 3 mL 3 mL, Nebulization, EVERY 4 HOURS, First dose on Mon07/30/23 at 1030, Until Discontinued Given 08/03/2023 11:13 PM MATERIALS SUPERVISOR 3 mL Given 08/03/2023 6:29 PM MATERIALS SUPERVISOR 3 mL Given 08/03/2023 3:26 PM MATERIALS SUPERVISOR 3 mL lactulose (CHRONULAC) 10 GM/15ML solution 10 g 10 g, Oral, 3 TIMES DAILY, First dose (after last reorder) on Mon07/28/23 at 2100, Until Discontinued Given 07/29/2023 9:04 AM MATERIALS SUPERVISOR 10 g lansoprazole (PREVACID SOLUTAB) disintegrating tablet 30 mg 30 mg, Oral, DAILY, First dose on Mon08/01/23 at 0900, Until Discontinued, Do not crush. For patients able to swallow whole tablets, pantoprazole tablet is the preferred formulary product. Contact provider/pharmacy to request alternative. May be dissolved in water for administration via enteral tube, if needed. (Enteral tube greater than or equal to 8 [place] administration: place the tablet in a syringe and draw up ~10 mL water. After the tablet has dispersed, gently shake the syringe and then administer. Refill the syringe with ~5 mL water, shake gently, and then flush the tube., Indications: Stress Ulcer Prophylaxis, Symptomatic Gastroesophageal Reflux DiseaseIndications:Stress Ulcer Prophylaxis,Symptomatic Gastroesophageal Reflux Disease Given 08/07/2023 9:21 AM MATERIALS SUPERVISOR 30 mg Given 08/06/2023 8:20 AM MATERIALS SUPERVISOR 30 mg Given 08/05/2023 9:00 AM MATERIALS SUPERVISOR 30 mg LORazepam (ATIVAN) injection 0.5 mg 0.5 mg, Intravenous, ONCE, 1 dose, On Mon08/02/23 at 1600, For intramuscular administration: Administer undiluted. For intravenous administration: Dilute with an equal volume of NS prior to administration. Gently invert to mix. Maximum rate of IV administration is 2mg/min. Given 08/02/2023 3:49 PM MATERIALS SUPERVISOR 0.5 mg LORazepam (ATIVAN) tablet 1 mg 1 mg, Oral, EVERY 6 HOURS PRN, Starting on 07/29/23 at 1031, Until Mon08/07/23 at 1437, Anxiety Given 07/30/2023 9:32 AM MATERIALS SUPERVISOR 1 mg Given 07/30/2023 2:10 AM MATERIALS SUPERVISOR 1 mg Given 07/29/2023 5:15 PM MATERIALS SUPERVISOR 1 mg methylPREDNISolone Na Suc (PF) (Solu-MEDROL) injection 125 mg 125 mg, Intravenous, ONCE, 1 dose, On Mon07/28/23 at 0930 Given 07/28/2023 9:08 AM MATERIALS SUPERVISOR 125 mg methylPREDNISolone Na Suc (PF) (Solu-MEDROL) injection 40 mg 40 mg, Intravenous, EVERY 6 HOURS, First dose on Mon07/30/23 at 1030, Until Discontinued Given 07/31/2023 9:55 AM MATERIALS SUPERVISOR 40 mg Given 07/31/2023 3:57 AM MATERIALS SUPERVISOR 40 mg Given 07/30/2023 9:41 PM MATERIALS SUPERVISOR 40 mg methylPREDNISolone Na Suc (PF) (Solu-MEDROL) injection 40 mg 40 mg, Intravenous, EVERY 12 HOURS, First dose (after last modification) on Mon07/31/23 at 2200, Until Discontinued Given 08/03/2023 9:48 AM MATERIALS SUPERVISOR 40 mg Given 08/02/2023 9:17 PM MATERIALS SUPERVISOR 40 mg Given 08/02/2023 9:53 AM MATERIALS SUPERVISOR 40 mg methylPREDNISolone Na Suc (PF) (Solu-MEDROL) injection 60 mg 60 mg, Intravenous, ONCE, 1 dose, On Mon07/28/23 at 1830 Given 07/28/2023 6:30 PM MATERIALS SUPERVISOR 60 mg METHYLPREDNISOLONE NA SUC (PF) 40 MG IJ SOLR 1 dose, Starting on Mon07/30/23 at 1012, Until Mon07/30/23 at 1016, Created by [email or web address] harper metoprolol Succinate (TOPROL-XL) XL tablet 50 mg 50 mg, Oral, DAILY, First dose on Mon07/28/23 at 1500, Until Discontinued, Do Not Crush Given 07/28/2023 4:32 PM MATERIALS SUPERVISOR 50 mg metoprolol tartrate (LOPRESSOR) injection 5 mg 5 mg, Intravenous, EVERY 6 HOURS, First dose on Mon07/30/23 at 1300, Until Discontinued, Hold for Heart Rate less than 60 or SBP less than 110 Scheduled IV lopressor is permitted on general care units with house-wide telemetry or equivalent continuous heart rate monitoring.Bedside cardiac monitoring is required for PRN use and Once orders. In all cases, vitals should be taken before administration and 15 minutes after each dose. Administer by slow IV push over 5 minutes., Notify provider if patient is taking enteral medications so patient can be considered for transition off intravenous beta-lilly. Given 07/31/2023 12:15 PM MATERIALS SUPERVISOR 5 mg Given 07/31/2023 8:41 AM MATERIALS SUPERVISOR 5 mg Given 07/31/2023 12:40 AM MATERIALS SUPERVISOR 5 mg metoprolol tartrate (LOPRESSOR) tablet 25 mg 25 mg, Oral, 2 TIMES DAILY, First dose on Mon07/31/23 at 2100, Until Discontinued, Hold for Heart Rate less than 65 or SBP less than 110 Given 08/07/2023 9:21 AM MATERIALS SUPERVISOR 25 mg Given 08/06/2023 9:12 PM MATERIALS SUPERVISOR 25 mg Given 08/05/2023 8:34 PM MATERIALS SUPERVISOR 25 mg midazolam (VERSED) 1 mg/mL premix IV 0-15 mg/hr (0-15 mL/hr), Intravenous, CONTINUOUS, Starting on 07/30/23 at 1200, Until [place] 08/03/23 at 0716, Max Dose 10mg/hr GOAL for Sedation: RASS Score of -2 INITIATE : 5mg/hr TITRATE : 1mg/hr increments. Give IV Push 2mg Midazolam prn , if ordered, prior to each rate increase or anticipated procedure INTERVAL: 15 min Contact Provider if Sedation Goal not achieved at Min or Max of goal range New Bag 08/02/2023 4:44 AM MATERIALS SUPERVISOR 10 mg/hr 10 mL/hr Rate Change 08/01/2023 9:30 PM MATERIALS SUPERVISOR 10 mg/hr 10 mL/hr Rate Change 08/01/2023 9:15 PM MATERIALS SUPERVISOR 9 mg/hr 9 mL/hr midazolam (VERSED) injection 2-4 mg 2-4 mg, Intravenous, EVERY 1 HOUR PRN, Starting on 07/30/23 at 1139, Until [place] 08/03/23 at 0716, Other, to maintain at sedation goal, 1. Goal for Sedation is a RASS Score of -2 . 2. Contact physician if IV Push if goal not achieved after 3 consecutive doses Given 08/01/2023 2:20 AM MATERIALS SUPERVISOR 4 mg Given 08/01/2023 12:25 AM MATERIALS SUPERVISOR 4 mg Given 07/31/2023 8:42 PM MATERIALS SUPERVISOR 4 mg midazolam (VERSED) injection 5 mg 5 mg, Intravenous, ONCE, 1 dose, On 07/30/23 at 1230 Given 07/30/2023 11:48 AM MATERIALS SUPERVISOR 5 mg MIDAZOLAM HCL 5 MG/ML IJ SOLN 1 dose, Starting on 07/30/23 at 1145, Until 07/30/23 at 1148, Created by bernicet shannonide pantoprazole (PROTONIX) tablet 40 mg 40 mg, Oral, EVERY MORNING BEFORE BREAKFAST, First dose on 07/29/23 at 0730, Until Discontinued, Indications: Symptomatic Gastroesophageal Reflux DiseaseIndications:Symptomatic Gastroesophageal Reflux Disease Given 07/31/2023 8:40 AM MATERIALS SUPERVISOR 40 mg Given 07/30/2023 9:34 AM MATERIALS SUPERVISOR 40 mg Given 07/29/2023 9:06 AM MATERIALS SUPERVISOR 40 mg predniSONE (DELTASONE) tablet 20 mg 20 mg, Oral, DAILY WITH BREAKFAST, First dose (after last modification) on [place] 08/06/23 at 0800, Until Discontinued Given 08/07/2023 9:21 AM MATERIALS SUPERVISOR 20 mg Given 08/06/2023 8:21 AM MATERIALS SUPERVISOR 20 mg predniSONE (DELTASONE) tablet 30 mg 30 mg, Oral, DAILY WITH BREAKFAST, First dose on Mon08/04/23 at 0800, Until Discontinued Given 08/05/2023 9:00 AM MATERIALS SUPERVISOR 30 mg Given 08/04/2023 9:13 AM MATERIALS SUPERVISOR 30 mg senna (SENOKOT) tablet 8.6 mg 8.6 mg (1 Tablet), Oral, 2 TIMES DAILY PRN, Starting on Mon07/30/23 at 1137, Until [facility] 08/03/23 at 0857, Constipation - 2nd line Given 07/31/2023 8:43 PM MATERIALS SUPERVISOR 8.6 mg sertraline (ZOLOFT) tablet 50 mg 50 mg, Oral, DAILY, First dose (after last reorder) on [facility] 07/29/23 at 0900, Until Discontinued Given 08/07/2023 9:21 AM MATERIALS SUPERVISOR 50 mg Given 08/06/2023 8:21 AM MATERIALS SUPERVISOR 50 mg Given 08/05/2023 9:00 AM MATERIALS SUPERVISOR 50 mg sodium chloride 0.9 % 1,000 mL IV bolus 1,000 mL, Intravenous, ONCE, 1 dose, On Mon07/28/23 at 1000, Administer over 0.5 Hours New Bag 07/28/2023 9:43 AM MATERIALS SUPERVISOR 1,000 mL 2000 mL/hr sodium chloride 0.9 % 1,000 mL IV bolus 1,000 mL, Intravenous, ONCE, 1 dose, On Mon07/28/23 at 1600, Administer over 1 Hours New Bag 07/28/2023 4:32 PM MATERIALS SUPERVISOR 1,000 mL 1000 mL /hr Vancomycin HCl in NaCl 1.25-0.9 GM/250ML-% premix 1,250 mg 1,250 mg, Intravenous, EVERY 12 HOURS, First dose on [facility] 07/29/23 at 2100, Until Discontinued, Administer over 90 Minutes, Indications: Community Acquired Pneumonia, at 166.7 mL/hrIndications:Community Acquired Pneumonia New Bag 07/30/2023 9:32 AM MATERIALS SUPERVISOR 1,250 mg 166.7 mL/hr New Bag 07/29/2023 8:34 PM MATERIALS SUPERVISOR 1,250 mg 166.7 mL/hr Vancomycin HCl in NaCl 1.5-0.9 GM/250ML-% premix 1,500 mg 1,500 mg, Intravenous, EVERY 12 HOURS, 11 doses, First dose (after last modification) on Mon07/30/23 at 2100, Last dose on Mon08/04/23 at 2100, Administer over 90 Minutes, Indications: Community Acquired Pneumonia, at 166.7 mL/hrIndications:Community Acquired Pneumonia New Bag 08/04/2023 8:36 PM MATERIALS SUPERVISOR 1,500 mg 166.7 mL/hr New Bag 08/04/2023 9:37 AM MATERIALS SUPERVISOR 1,500 mg 166.7 mL/hr New Bag 08/03/2023 8:51 PM MATERIALS SUPERVISOR 1,500 mg 166.7 mL/hr Vancomycin HCl in NaCl 2250-0.9 MG/500ML-% Premix 2,250 mg 2,250 mg, Intravenous, ONCE, 1 dose, On 07/29/23 at 0730, Administer over 150 Minutes, Indications: Community Acquired Pneumonia, at 200 mL/hrIndications:Community Acquired Pneumonia New Bag 07/29/2023 9:04 AM MATERIALS SUPERVISOR 2,250 mg 200 mL/hr documented in this encounter Active and Recently Administered Medications Times are shown in MATERIALS SUPERVISOR. Scheduled Medication Order 08/05/2023 08/06/2023 08/07/2023 cloZAPine (CLOZARIL) tablet 100 mg 100 mg, Oral, DAILY, First dose on Mon07/28/23 at 1630, Until Discontinued 0900 (Given - Provider: Sandy Prince RN) 08 (Given - Provider: Sandy Prince RN) 920 (Given - Provider: Leon Dunne RN) cloZAPine (CLOZARIL) tablet 50 mg 50 mg, Oral, NIGHTLY, First dose on Mon08/02/23 at 2100, Until Discontinued 2033 (Given - Provider: Ana Calderon RN) 2111 (Given - Provider: Sidney Schroeder RN) enoxaparin (LOVENOX) injection 40 mg 40 mg, Subcutaneous, EVERY 24 HOURS SCHEDULED (Daily), First dose on Mon08/02/23 at 1000, Until Discontinued 0900 (Given - Provider: Sandy Prince RN) 0820 (Given - Provider: Sandy Prince RN) 09 (Given - Provider: Leon Dunne RN) lansoprazole (PREVACID SOLUTAB) disintegrating tablet 30 mg 30 mg, Oral, DAILY, First dose on Mon08/01/23 at 0900, Until Discontinued, Do not crush. For patients able to swallow whole tablets, pantoprazole tablet is the preferred formulary product. Contact provider/pharmacy to request alternative. May be dissolved in water for administration via enteral tube, if needed. (Enteral tube greater than or equal to 8 [place] Islander administration: place the tablet in a syringe and draw up ~10 mL water. After the tablet has dispersed, gently shake the syringe and then administer. Refill the syringe with ~5 mL water, shake gently, and then flush the tube., Indications: Stress Ulcer Prophylaxis, Symptomatic Gastroesophageal Reflux Disease 0900 (Given - Provider: Sandy Prince RN) 819 (Given - Provider: Sandy Prince RN) 920 (Given - Provider: Leon Dunne RN) metoprolol tartrate (LOPRESSOR) tablet 25 mg 25 mg, Oral, 2 TIMES DAILY, First dose on Mon07/31/23 at 2100, Until Discontinued, Hold for Heart Rate less than 65 or SBP less than 110 899 (Given - Provider: Sandy Prince RN)2033 (Given - Provider: Ana Calderon RN) 899 (Not Given - Provider: Sandy Prince RN - Reason: Order parameters not met - Comment: HR less than 65)2111 (Given - Provider: Sidney Schroeder RN) 920 (Given - Provider: Leon Dunne RN) predniSONE (DELTASONE) tablet 20 mg 20 mg, Oral, DAILY WITH BREAKFAST, First dose (after last modification) on Mon08/06/23 at 0800, Until Discontinued 820 (Given - Provider: Sandy rPince RN) 920 (Given - Provider: Leon Dunne RN) predniSONE (DELTASONE) tablet 30 mg (CANCELED) 30 mg, Oral, DAILY WITH BREAKFAST, First dose on Mon08/04/23 at 0800, Until Discontinued 0900 (Given - Provider: Sandy Prince RN) sertraline (ZOLOFT) tablet 50 mg 50 mg, Oral, DAILY, First dose (after last reorder) on Mon07/29/23 at 0900, Until Discontinued 0900 (Given - Provider: Sandy Prince, ALPHOSNO) 0821 (Given - Provider: Sandy Prince RN) 09 (Given - Provider: Leon Dunne RN) PRN Medication Order 08/05/2023 08/06/2023 08/07/2023 hydrALAZINE (APRESOLINE) injection 10 mg 10 mg, Intravenous, EVERY 1 HOUR PRN, Starting on Mon08/02/23 at 1107, Until Mon08/07/23 at 1437, High Blood Pressure - 1st line, use for blood pressure above 145 LORazepam (ATIVAN) tablet 1 mg 1 mg, Oral, EVERY 6 HOURS PRN, Starting on 07/29/23 at 1031, Until Mon08/07/23 at 1437, Anxiety documented in this encounter Additional Health Concerns Infection Onset Date Last Indicated Resolved Time COVID - 19 07/28/2023 07/28/2023 08/01/2023 9:07 AM MATERIALS SUPERVISOR RSV 07/28/2023 07/28/2023 08/04/2023 9:56 AM MATERIALS SUPERVISOR 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 07/28/2023 09/04/2023 8:45 AM MATERIALS SUPERVISOR documented as of this encounter Care Teams Food Manager Relationship Specialty Start Date End Date Irving Jeffries MD [address] [place] [address] PCP - General Internal Medicine 07/16/21 07/04/24 oTn Ling APRN, SQL SERVER BI DEVELOPER [address] [place] [address] Nurse Practitioner Advanced Practice Nurse 04/24/23 Michael Ahmadi MD [address] [place] [address] Consulting Physician Medical Oncology 07/26/23 documented as of this encounter
--- OUTSIDE RECORDS SUMMARY | 2024-07-28 14:09 | XMS_ITS | Encounter Summary ---
Author Organization [employer] Care Team Providers Care Box Toe Cutter Name Role Phone Irving Jeffries MD Primary Care Provider [phone] Encounter Details Date Type Department Care Team (Latest Contact Info) Description 03/29/2023 Travel Social History Tobacco Use Types Packs/Day [...] on filedocumented in this encounter Care Teams Box Toe Cutter Relationship Specialty Start Date End Date Irving Jeffries MD [address] [place] [address] PCP - General Internal Medicine 07/16/21 07/04/24 documented as of this encounter
--- OUTSIDE RECORDS SUMMARY | 2024-07-28 14:09 | XMS_ITS | Encounter Summary ---
Author Organization [facility] Address [address] [facility] [place] [address] Phone Care Team Providers Care Lab Courier Name Role Phone Irving Jeffries MD Primary Care Provider Ton Ling APRN, MANAGEMENT INFORMATION SYSTEMS DIRECTOR Unavailable Reason for Visit * Reason Onset Date Comments Medication Refill 07/14/2023 Encounter Details Date Type Department Care Team (Late st Contact Info) Description 07/14/2023 Refill [facility] On[facility] [address] [place] [address] Michael Ahmadi MD [address] [place] [address] Medication Refill Social History Tobacco Use Types [...] Telephone Encounter - Annabel Sosa RN - 07/14/2023 3:08 PM BENZENE WASHER Spoke with Lenora at [facility] r/t new rx for pt and need for CBC in 1 week. Verbalized understanding. Rx sent. ENE WASHER documented in this encounter Plan of Treatment Not on file documented as of this encounter Visit Diagnoses Not on filedocumented in this encounter Care Teams Lab Courier Relationship Specialty Start Date End Date Irving Jeffries MD [address] [place] [address] PCP - General Internal Medicine 07/16/21 07/04/24 Ton Ling, SHIP SELF DEFENSE SYSTEM MK1 OPERATOR, MANAGEMENT INFORMATION SYSTEMS DIRECTOR [address] [place] [address] Nurse Practitioner Advanced Practice Nurse 04/24/23 documented as of this encounter
--- OUTSIDE RECORDS SUMMARY | 2024-07-28 14:09 | XMS_ITS | Encounter Summary ---
Author Organization [facility] Address [address] [place] [address] Phone Care Team Providers Care Industrial Painter Name Role Phone Irving Jeffries MD Primary Care Provider [phone] Ton Ling ADVERTISING SPACE CLERK, POPULATION GENETICIST Unavailable Encounter Details Date Type Department Care Team (Late st Contact Info) Description 04/24/2023 10:[address] [facility] [address] [place] [id number] Gilda Hagen Monika, PAC [address] [place] [address] Thrombocytopenia (HCC); Elevated PSA Discharge Disposition: Discharged to home [...] AM CDT documented as of this encounter Progress Notes * Mariza Chaudhry - 04/24/2023 10:40 AM CDT Pt and correction made aware or results. Also made aware to be expecting a call from [facility]. Spoke with someone at [facility] and they states they cant get a hold of anyone at the correction. I asked them to try and call one more time and let us know if they cant get ahold of someone. documented in this encounter Plan of Treatment Not on file documented as of this encounter Procedures Procedure Name Priority Date/Time Associated Diagnosis Comments IRON,TRANSFERN,CALC.T IBC,%SAT Routine 04/24/2023 10:44 AM CDT Thrombocytopenia (HCC) CBC WITH AUTO DIFFERENTIAL Routine 04/24/2023 10:44 AM CDT Thrombocytopenia (HCC) PSA DIAGNOSTIC,TOTAL Routine 04/24/2023 10:44 AM CDT Elevated PSA FERRITIN Routine 04/24/2023 10:44 AM CDT Thrombocytopenia (HCC) COMPLETE BLOOD COUNT (CBC) WITH DIFF Routine 04/24/2023 10:44 AM CDT Thrombocytopenia (HCC) documented in this encounter Results * (ABNORMAL) CBC WITH AUTO DIFFERENTIAL (04/24/2023 10:44 AM CDT) WBC 8.46 4.00 - 12.00 10(3)/mcL 04/24/2023 12:43 PM CDT [facility] RBC 4.40 4.40 - 5.80 10(6)/mcL 04/24/2023 12:43 PM CDT [facility] HEMOGLOBIN (HGB) 13.8 13.0 - 16.5 g/dL 04/24/2023 12:43 PM CDT [facility] HEMATOCRIT (HCT) 41.5 38.0 - 50.0 % 04/24/2023 12:43 PM CDT [facility] MCV 94.3 82.0 - 96.0 fL 04/24/2023 12:43 PM CDT [facility] MCH 31.4 26.0 - 32.0 pg 04/24/2023 12:43 PM CDT [facility] MCHC 33.3 31.0 - 36.0 g/dL 04/24/2023 12:43 PM CDT [facility] PLATELET COUNT 50(L) 140 - 440 10(3)/[facility] 04/24/2023 12:43 PM CDT [facility] RDW 13.4 11.8 - 15.5 % 04/24/2023 12:43 PM CDT [facility] MPV 14.8(H) 8.0 - 12.6 fL 04/24/2023 12:43 PM CDT [facility] NEUTROPHILS 66.6 40.0 - 68.0 % 04/24/2023 12:43 PM CDT [facility] LYMPHOCYTES 18.0(L) 19.0 - 49.0 % 04/24/2023 12:43 PM CDT [facility] MONOCYTES 14.8(H) 3.0 - 13.0 % 04/24/2023 12:43 PM CDT [facility] EOSINOPHILS 0.0 0.0 - 8.0 % 04/24/2023 12:43 PM CDT [facility] BASOPHILS 0.6 0.0 - 1.0 % 04/24/2023 12:43 PM CDT [facility] ABSOLUTE NEUTROPHILS 5.64(H) 1.40 - 5.30 10(3)/[facility] 04/24/2023 12:43 PM CDT [facility] ABSOLUTE LYMPHOCYTES 1.52 0.90 - 3.30 10(3)/[facility] 04/24/2023 12:43 PM CDT [facility] ABSOLUTE MONOCYTES 1.25(H) 0.10 - 0.90 10(3)/[facility] 04/24/2023 12:43 PM CDT [facility] ABSOLUTE EOSINOPHIL 0.00 0.00 - 0.50 10(3)/mcL 04/24/2023 12:43 PM CDT [facility] ABSOLUTE BASOPHILS 0.05 0.00 - 0.10 10(3)/mcL 04/24/2023 12:43 PM CDT [facility] NRBC PER 100 WBC 0 04/24/20 12:43 PM CDT [facility] RESULTS ARE CONSISTENT WITH PERIPHERAL SMEAR REVIEW Yes 04/24/2023 12:43 PM CDT [facility] Blood Venipuncture / Unknown 04/24/2023 10:44 AM CDT 04/24/2023 10:56 AM CDT us Gilda Hagen PAC HEMATOLOGY ORDERABLES Fin al Result Performing Organization Address [facility] Co de Phone Number [facility] [address] [place] [address] * (ABNORMAL) PSA DIAGNOSTIC,TOTAL (04/24/2023 10:44 AM CDT) PSA, TOTAL (PROSTATIC SPECIFIC ANTIGEN) 9.75(H) <4.00 ng/mL 04/24/2023 12:04 PM CDT [facility] Blood Venipuncture / Unknown 04/24/2023 10:44 AM CDT 04/24/2023 11:07 AM CDT Narrative [facility] - 04/24/2023 12:04 PM CDT PSA NOTE: The PSA value should be used in conjunction with information available from clinical evaluation and other diagnostic procedures. The CANVASS MANAGER Total PSA assay is a Chemiluminescent Microparticle Immunoassay (CMIA) for the quantitative determination of total PSA (both free PSA and PSA complexed to [id number]) in human serum. us Ton Ling ADVERTISING SPACE CLERK, POPULATION GENETICIST CHEMISTRY ORDERABLES F inal Result Performing Organization Address City/[facility]/ZIP Co de Phone Number [facility] [address] [place] [address] * IRON,TRANSFERN,CALC.TIBC,%SAT (04/24/2023 10:44 AM CDT) IRON 104 31 - 144 mcg/dL 04/24/2023 11:37 AM CDT [facility] TRANSFERRIN 283 163 - 344 mg/dL 04/24/2023 11:37 AM CDT [facility] TIBC, CALCULATED 354 261 - 462 mcg/dL 04/24/2023 11:37 AM CDT [facility] % SATURATION * 29 15 - 62 % 04/24/2023 11:37 AM CDT [facility] Blood Venipuncture / Unknown 04/24/2023 10:44 AM CDT 04/24/2023 11:07 AM CDT Narrative [facility] - 04/24/2023 11:37 AM CDT * % Transferrin Saturation Amootoon PAC CHEMISTRY ORDERABLES Mireya l Result [facility] [address] [place] [address] * FERRITIN (04/24/2023 10:44 AM CDT) FERRITIN 23 22 - 274 ng/mL 04/24/2023 12:04 PM CDT [facility] Blood Venipuncture / Unknown 04/24/2023 10:44 AM CDT 04/24/2023 11:07 AM [facility] CHEMISTRY ORDERABLES Mireya l Result [facility] [address] [place] [address] documented in this encounter Visit Diagnoses Diagnosis Thrombocytopenia (HCC) Thrombocytopenia, unspecified Elevated PSA Elevated prostate specific antigen (PSA) documented in this encounter Care Teams Industrial Painter Relationship Specialty Start Date End Date Irving Jeffries MD [address] [place] [address] PCP - General Internal Medicine 07/16/21 07/04/24 Ton Ling, ADVERTISING SPACE CLERK, POPULATION GENETICIST [address] [place] [address] Nurse Practitioner Advanced Practice Nurse 04/24/23 documented as of this encounter
--- OUTSIDE RECORDS SUMMARY | 2024-07-28 14:09 | XMS_ITS | Encounter Summary ---
Author Organization [facility] Address [address] [place] [address] Phone Care Team Providers Care Pumper Gauger Name Role Phone Irving Jeffries MD Primary Care Provider Ton Ling APRN, IN TUBE CONVERSION TECHNICIAN Unavailable [phone] Michael Ahmadi MD Unavailable [phone] Encounter Details Date Type Department Care Team (Late st Contact Info) Description 08/09/2023 Plan of Care Documentation [facility] [address] [place] [address] Social History Tobacco Use Types Packs/Day Years Used Date Smoking Tobacco: Former Cigarettes 2 20 Smokeless Tobacco: Never Alcohol Use Standard Drinks/Week Comments Not Currently 0 (1 standard drink = 0.6 oz pur e alcohol) [facility] Utilities Answer Date Recorded In the past 12 months has [employer], gas, oil, or water [employer] threatened to shut off services in your home? Patient declined 07/28/2023 Social Connection and Isolation Panel [NHANES] A nswer Date Recorded In a typical week, how many times do you talk on the phone with family, friends, or neighbors? Patient declined 07/28/2023 How often do you get togethe r with friends or relatives? Patient declined 07/28/2023 How often do you attend anabaptism or religion serv ices? Patient declined 07/28/2023 Do you [...] medical care, and heating? Patient declined [facility] - Occupational Stress Questionnaire Answer Date Recorded [...] in a fci (including now)? Patient declined 07/28/2023 Sex and Gender Information Value Date Recorded Sex Assigned at Not on file Legal Sex Male 11:18 PM CDT Gender Identity Not on file Sexual Orientation Not on file documented as of this encounter Miscellaneous Notes * Home Health Plan of Care - Shelby Sandoval RN - 08/18/2023 12:06 PM GEOMETRICIAN ADVANCE CARE PLANNING Patient has the following: No Living Will or Medical POA Patient has the following code status: CPR - Full Treatment (Full Code) Patient has an active POLST/POST/DNR form? 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
--- OUTSIDE RECORDS SUMMARY | 2024-07-28 14:09 | XMS_ITS | Encounter Summary ---
Author Organization [facility] Address [address] [place] [address] Phone Care Team Providers Care Welder Production Line Combination Name Role Phone Irving Jeffries MD Primary Care Provider Ton Ling APRN, SENIOR ACCOUNT CLERK Unavailable Reason for Visit * Reason Comments Results Encounter Details Date Type Department Care Team (Late st Contact Info) Description 06/20/2023 10:30 AM FISH BIN TENDER Office Visit [facility] [address] [place] [address] Ton Ling, JUNK REMOVAL SPECIALIST, SENIOR ACCOUNT CLERK [address] [place] [address] Elevated PSA (Primary Dx) Discharge Disposition: Discharged to home [...] Sign Reading Time Taken Comments Blood Pressure 158/73 06/20/2023 10:13 AM FISH BIN TENDER Pulse 102 06/20/2023 10:13 AM FISH BIN TENDER Temperature - - Respiratory Rate 20 06/20/2023 10:13 AM FISH BIN TENDER Oxygen Saturation 98% 06/20/2023 10:13 AM FISH BIN TENDER Inhaled Oxygen Concentration - - Weight 93.4 kg (206 lb) 06/20/2023 10:13 AM FISH BIN TENDER Height 182.9 cm (6') 06/20/2023 10:13 AM FISH BIN TENDER Body Mass Index 27.94 06/20/2023 10:13 AM FISH BIN TENDER documented in this encounter Progress Notes * Ton Ling, JUNK REMOVAL SPECIALIST, SENIOR ACCOUNT CLERK - 06/20/2023 10:30 AM CST UROLOGY [facility] [address] [facility], [address] [place] [address] PHONE: FAX: Assessment & Plan Elevated PSA-patient has large prostate which likely accounts for the elevation in PSA. No suspicious lesions seen on MRI. PSA density also reassuring. We discussed continued observation versus starting finasteride to follow up PSA kinetics. Patient elects to start finasteride. Medication administration, use, side effects discussed. Patient to follow up in 6 months Subjective: 04/24/2023 HPI: HPI: Iván Dumont presents [...] He is feeling well today without complaints. The following portions of the patient's chart were reviewed in this encounter and updated as appropriate: ROS: Review of Systems Constitutional: Negative for chills and fever. Respiratory: Negative for cough and shortness of breath. Cardiovascular: Negative for chest pain and palpitations. Gastrointestinal: Negative for abdominal pain, diarrhea, nausea and vomiting. Genitourinary: Negative for dysuria, flank pain, frequency, hematuria and urgency. Musculoskeletal: Negative for [...] to person, place, and time. Gait: Gait normal. Lab Results Component Value Date WBC 8.46 04/24/2023 HEMOGLOBIN 13.8 04/24/2023 HEMATOCRIT 41.5 04/24/2023 PLATELETCNT 50 (L) 04/24/2023 MCV 94.3 04/24/2023 Lab Results Component Value Date SODIUM 141 03/15/2023 POTASSIUM 4.2 03/15/2023 CHLORIDE 107 03/15/2023 CO2VEN 22 03/15/2023 ANIONGAP 16.2 03/15/2023 GLUCOSE 122 (H) 03/15/2023 BUN 12 03/15/2023 CREATININE 0.85 03/15/2023 BCRATIO8 14 03/15/2023 TOTALPROTEIN 7.4 03/15/2023 TOTALPROTEIN 7.1 03/15/2023 ALBUMIN 4.2 03/15/2023 AGRATIO 1.3 03/15/2023 CALCIUM 9.0 03/15/2023 TBIL 0.3 03/15/2023 SGOTAST 18 03/15/2023 SGPTALT 28 03/15/2023 ALKALINEPHO 72 03/15/2023 GFRNA >60 03/15/2023 GFRA >60 03/15/2023 Lab Results Component Value Date PSASCREEN 9.18 [...] previous visit from the past 365 days. Diagnoses and all orders for this visit: Elevated PSA - RAN,POST-VOID RES,US,NON-IMAGING - POCT UA AUTOMATED W/O MICRO By: Ton Ling APRN, YAA, 06/20/2023, 8:49 AM FISH BIN TENDER Primary Care Physician: Irving Jeffries MD BIN TENDER documented in this encounter Procedure Notes * Che Granados RMA - 06/20/2023 10:30 AM CSTAssociated Order(s): RAN,POST- VOID RES,US,NON-IMAGING POCT Bladder Scan collected per standing order of Ton Ling WEAVING PROFESSOR on 06/20/2023 PVR= 22 ML BIN TENDER documented in this encounter Plan of Treatment Not on file documented as of this encounter Procedures Procedure Name Priority Date/Time Associated Diagnosis Comments RAN,POST-VOID RES,US,NON-IMAGING Routine 06/20/2023 10:30 AM FISH BIN TENDER Elevated PSA documented in this encounter Results * RAN,POST-VOID RES,US,NON-IMAGING (06/20/2023 10:30 AM FISH BIN TENDER) Narrative Che Granados RMA - 06/20/2023 10:30 AM FISH BIN TENDER Che Granados RMA ? 06/20/2023 10:33 AM POCT Bladder Scan collected per standing order of Ton Ling WEAVING PROFESSOR on 06/20/2023 PVR= 22 ML us Ton Ling APRN, SENIOR ACCOUNT CLERK CT - SURGERY Final Result documented in this encounter Visit Diagnoses Diagnosis Elevated PSA- Primary Elevated prostate specific antigen (PSA) documented in this encounter Care Teams Welder Production Line Combination Relationship Specialty Start Date End Date Irving Jeffries MD [address] [place] [address] PCP - General Internal Medicine 07/16/21 07/04/24 Ton Ling APRN, SENIOR ACCOUNT CLERK [address] [place] [address] Nurse Practitioner Advanced Practice Nurse 04/24/23 documented as of this encounter
--- OUTSIDE RECORDS SUMMARY | 2024-07-28 14:09 | XMS_ITS | Encounter Summary ---
Author Organization [employer] Care Team Providers Care Marine Engineering Teacher Name Role Phone Irving Jeffries MD Primary Care Provider [phone] Encounter Details Date Type Department Care Team (Latest Contact Info) Description 01/05/2023 Travel Social History Tobacco Use Types Packs/Day [...] suspected to have Coronavirus/COVID-19? No / Unsure 01/05/2023 8:47 PM CDT documented as of this encounter Plan of Treatment Not on file documented as of this encounter Visit Diagnoses Not on filedocumented in this encounter Care Teams Marine Engineering Teacher Relationship Specialty Start Date End Date Irving Jeffries MD [address] [place] [address] PCP - General Internal Medicine 07/16/21 07/04/24 documented as of this encounter
--- OUTSIDE RECORDS SUMMARY | 2024-07-28 14:09 | XMS_ITS | Encounter Summary ---
Author Organization [facility] Address [address] [place] [address] Phone Care Team Providers Care Health Plan Specialist Name Role Phone Irving Jeffries MD Primary Care Provider Reason for Visit * Reason Onset Date Comments Results 02/15/2023 low platelet level 02/15/2023 Encounter Details Date Type Department Care Team (Late st Contact Info) Description 02/15/2023 Nurse Triage [facility] - [facility] - [place] [address] [place] [address] Kell Michelle, [facility] [address] [place] [address] Results; low platelet level Social History Tobacco Use Types Packs/Day Years [...] suspected to have Coronavirus/COVID-19? No / Unsure 02/02/2023 9:06 AM CDT documented as of this encounter Miscellaneous Notes * Telephone Encounter - Mariposa Eduardo RN - 02/15/2023 5:16 PM CDT Reason for Disposition ??? Patient's symptoms are safe to treat at home per nursing judgment Protocols used: NO PROTOCOL [id number] * Telephone Encounter - Mariposa Eduardo RN - 02/15/2023 5:08 PM CDT SITUATION: [facility] ( Terri Keith) called with a critical on a patient his platelet count is down to 31. No bleeding or symptoms at this time. BACKGROUND: HX of low platelet level. Patient on Clozapine (prescribed by Dr. Dale- [facility]) and his platelet level has to be monitored for this drug. [facility] unsure what to do since hislevels are low. HISTORY: See above ASSESSMENT & RECOMMENDATION: First positive answer recorded, all responses to prior questions were negative. If symptoms increase, change or if new symptoms develop, call your HCP or call back. Recommendations were based on caller information and is not a diagnosis. Verified and reviewed all triage information with caller. Teach-back method utilized. Patient not having symptoms. She thought Dr. Jeffries prescribed this, but realized Dr. Dale does and will call his office for further instruction. I did tell her to take him to ER if any bleeding starts or other symptoms. Patient was referred to hematology on 02/02. I will route to them as an fyi for scheduling him. * Telephone Encounter - Kell Michelle PAC - 02/15/2023 3:40 PM CDT Pt has a known history of low platelets Would advise he be referred to [facility]; please place referral In meantime, nurse to triage and assure no new symptoms; no sign of bleeding concern? If not, proceed with [facility] referral If any concerns or complications, send to ER documented in this encounter Plan of Treatment Not on file documented as of this encounter Visit Diagnoses Not on filedocumented in this encounter Care Teams Health Plan Specialist Relationship Specialty Start Date End Date Irving Jeffries MD [address] [place] [address] PCP - General Internal Medicine 07/16/21 07/04/24 documented as of this encounter
--- OUTSIDE RECORDS SUMMARY | 2024-07-28 14:09 | XMS_ITS | Encounter Summary ---
Author Organization [facility] Address [address] [facility] [place] [address] Phone Care Team Providers Care Customs Officer Name Role Phone Irving Jeffries MD Primary Care Provider [phone] Reason for Referral * Radiology Services (Routine) - Closed Specialty Diagnoses / Procedures Referred By Geeta saavedra Referred To Contact Radiology Diagnoses Thrombocytopenia (HCC) Anemia, unspecified type Procedures US ABDOMEN COMPLETE Gilda Hagen, PAC [address] [place] [address] Phone: tel: fax: Referral ID Status Reason Start Date Expiration Date Visits Re quested Visits Authorized [id number] Closed 03/20/2023 1 1 Encounter Details Date Type Department Care Team (Late st Contact Info) Description 03/20/2023 Telephone [facility] Oncology Services [address] [place] [id number] Gilda Hagen PAC [address] [place] [address] Social History Tobacco Use Types Packs/Day Years [...] encounter Miscellaneous Notes * Telephone Encounter - Gilda Hagen, PAC - 03/20/2023 2:00 PM CDT Orders placed * Telephone Encounter - Candida Alaniz RN - 03/20/2023 1:58 PM CDT Placed call to facility to schedule patient for Abdominal Ultrasound per Gilda's note to evaluate Spleen size. Patient scheduled for 04/21/23 at 8:30. Directed staff at facility that patient will need to be NPO after MN and arrive at 8:00am. Staff verbalized understanding and will have patient here in am. documented in this encounter Plan of Treatment Not on file documented as of this encounter Results * US ABDOMEN COMPLETE (03/21/2023 9:29 AM CDT) Anatomical Region Laterality Modality Abdomen N/A Ultrasound 03/21/2023 5:58 PM CDT Impressions 03/21/2023 6:01 PM CDT IMPRESSION: No evidence of an acute abnormality. Spleen size is normal. Cholelithiasis with no secondary features of acute cholecystitis. Bilateral renal cysts. Hepatic steatosis. ?? Narrative 03/21/2023 6:01 PM CDT EXAM DESCRIPTION: ?? US ABDOMEN COMPLETE REASON FOR STUDY: Thrombocytopenia, assess for splenomegaly. TECHNIQUE: Dynamic and static images acquired of the abdomen and recorded on PACS. Additional selected color Doppler and spectral images recorded. COMPARISON: None available. FINDINGS: PANCREAS: ??Visualized portions of the pancreas are within normal limits. Portions of the pancreatic body and tail are obscured due to bowel gas. LIVER: Measures ??16.2 ??cm and is increased ??in echogenicity. There is no focal hepatic lesion. LIVER VASCULATURE: Normal directional flow of the main portal and hepatic veins. GALLBLADDER: Multiple echogenic shadowing gallstones, the largest 1.9 cm. ??No gallbladder wall thickening. ??No pericholecystic fluid. ?? Negative sonographic Villalba's sign reported. ?? BILIARY: No intrahepatic ductal dilatation. Common bile duct measures ??0.5 ??cm. INFERIOR VENA CAVA: Unremarkable. AORTA: No abdominal aortic aneurysm. ??Abdominal aorta measures up to 2.5 cm. RIGHT KIDNEY: Kidney measures ??12.5 ??cm. There is normal ?? echogenicity and normal cortical thickness. There is no hydronephrosis. ??Lower pole cyst 1.1 x 0.9 x 1.0 cm. LEFT KIDNEY: Kidney measures ??11.8 ??cm. There is normal ?? echogenicity and normal cortical thickness. There is no hydronephrosis. ??Left renal cyst 1.0 x 1.2 x 0.9 cm. SPLEEN: Measures ??11.5 ??cm with no focal lesion. ??Round structure probable splenule 2.1 cm. PERITONEAL AND PLEURAL SPACES: No ascites or pleural effusion. OTHER: No other significant abnormality. THIS IS AN ELECTRONICALLY VERIFIED FINAL REPORT 03/21/2023 5:58 PM - Electronically signed by ??Gopi Beth M.D. CH: D: ??03/21/2023 5:58 PM T: ??03/21/2023 5:58 PM Report ID: [id number] Reading Location: ??[id number] Procedure Note Gopi Beth Jr., MD - 03/21/2023 EXAM DESCRIPTION: US ABDOMEN COMPLETE REASON FOR [...] Gopi Beth M.D. CH: SAÚL Report ID: [id number] Reading Location: [place] [id number] IMPRESSION: No evidence of an acute abnormality. Spleen size is normal. Cholelithiasis with no secondary features of acute cholecystitis. Bilateral renal cysts. Hepatic steatosis. Gilda Monika Hagen [facility] US ORDERABLES Final R esult documented in this encounter Visit Diagnoses Diagnosis Thrombocytopenia (HCC)- Primary Thrombocytopenia, unspecified Anemia, unspecified type Thrombocytopenia (HCC) Thrombocytopenia, unspecified Anemia, unspecified type documented in this encounter Care Teams Customs Officer Relationship Specialty Start Date End Date Irving Jeffries MD [address] [place] [address] PCP - General Internal Medicine 07/16/21 07/04/24 documented as of this encounter
--- OUTSIDE RECORDS SUMMARY | 2024-07-28 14:09 | XMS_ITS | Encounter Summary ---
Author Organization [employer] Care Team Providers Care Customer Manager Name Role Phone Irving Jeffries MD Primary Care Provider [phone] Ton Ling APRN, CLIENT ACCOUNT SPECIALIST Unavailable [phone] Michael Ahmadi MD Unavailable [phone] Encounter Details Date Type Department Care Team (Latest Contact Info) Description 07/28/2023 Travel Social History Tobacco Use Types Packs/Day Years Used Date Smoking Tobacco: Former Cigarettes 2 20 Smokeless Tobacco: Never Alcohol Use Standard Drinks/Week Comments Not Currently 0 (1 standard drink = 0.6 oz pur e alcohol) [facility] Utilities Answer Date Recorded In the [...] declined 07/28/2023 How often do you attend episcopal or voodoo serv ices? Patient declined 07/28/2023 Do you [...] medical care, and heating? Patient declined 07/28/2023 [facility] - Occupational [...] in a usp (including now)? Patient declined 07/28/2023 Sex and Gender Information Value Date Recorded Sex Assigned at Not on file Legal Sex Male 11:18 PM CDT Gender Identity Not on file Sexual Orientation Not on file documented as of this encounter Functional Status * Audit-C Score Answer Date of Assessment Author -1 07/28/2023 1:39 PM Yaritza Rudd RN * Within the last year, have you been humiliated or emotionally abused in other ways by your partner or ex-partner? Answer Date of Assessment Author Patient declined 07/28/2023 1:39 PM Yaritza Rudd RN * Within the last year, have you been afraid of your partner or ex-partner? Answer Date of Assessment Author Patient declined 07/28/2023 1:39 PM Yaritza Rudd RN * Within the last year, have you been raped or forced to have any kind of sexual activity by your partner or ex-partner? Answer Date of Assessment Author Patient declined 07/28/2023 1:39 PM Yaritza Rudd RN * Within the last year, have you been kicked, hit, slapped, or otherwise physically hurt by your partner or ex-partner? Answer Date of Assessment Author Patient declined 07/28/2023 1:39 PM Yaritza Rudd RN * Question Answer Date of Assessment Author Q1: How often do you have a drink containing alcohol? Patient declined 07/28/2023 1:39 PM Yaritza Rudd RN Q2: How many drinks containing alcohol do you have on a typical day when you are drinking? Patient declined 07/28/2023 1:39 PM Yarizta Rudd RN Q3: How often do you have six or more drinks on one occasion? Patient declined 07/28/2023 1:39 PM Yaritza Rudd RN documented as of this encounter Plan of Treatment Not on file documented as of this encounter Visit Diagnoses Not on filedocumented in this encounter Additional Health Concerns Infection Onset Date Last Indicated Resolved Time COVID - 19 07/28/2023 07/28/2023 08/01/2023 9:07 AM MASONRY INSTRUCTOR RSV 07/28/2023 07/28/2023 08/04/2023 9:56 AM MASONRY INSTRUCTOR 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 07/28/2023 09/04/2023 8:45 AM MASONRY INSTRUCTOR documented as of this encounter Care Teams Customer Manager Relationship Specialty Start Date End Date Irving Jeffries MD [address] [place] [address] PCP - General Internal Medicine 07/16/21 07/04/24 Ton Ling, PATIENT REGISTRATION CLERK, CLIENT ACCOUNT SPECIALIST [address] [place] [address] Nurse Practitioner Advanced Practice Nurse 04/24/23 Michael Ahmadi MD [address] [place] [address] Consulting Physician Medical Oncology 07/26/23 documented as of this encounter
--- OUTSIDE RECORDS SUMMARY | 2024-07-28 14:09 | XMS_ITS | Encounter Summary ---
Author Organization [facility] Address [address] [place] [address] Phone Care Team Providers Care Loop Drier Operator Name Role Phone Irving Jeffries MD Primary Care Provider Reason for Visit * Reason Comments Medication Refill Encounter Details Date Type Department Care Team (Late st Contact Info) Description 08/15/2022 Refill [facility] - Internal Medicine - [place] [address] [place] [address] Irving Jeffries MD [address] [facility] [place] [address] Medication Refill Social History Tobacco Use Types Packs/Day Years Used Date Smoking Tobacco: Never Smokeless Tobacco: Never Sex and Gender Information Value Date Recorded Sex Assigned at Not on file Legal Sex Male 11:18 PM CDT Gender Identity Not on file Sexual Orientation Not on file documented as of this encounter Miscellaneous Notes * Telephone Encounter - Quynh Duncan RN - 08/15/2022 9:23 AM CST Medication failed the protocol, provider to review and approve the medication order if appropriate. Requested Prescriptions Pending Prescriptions Disp Refills amLODIPine (NORVASC) 5 MG Tablet [Pharmacy Med Name: AMLODIPINE BESYLATE 5 MG TAB] 30 Tablet 12 Sig: TAKE ONE TABLET BY MOUTH EVERY DAY Calcium-Channel Blockers Protocol Failed - 08/15/2022 9:03 AM Failed - BP on record in the past year Clinician-entered: BP Readings from Last 3 Encounters: No data found for BP Patient-entered: No data recorded Passed - Visit with relevant provider in past 12 months or upcoming 90 days Recent Visits Date Type Provider Dept 01/19/22 Nursing Facility Irving Jeffries MD [facility] [place] Showing recent visits within past 365 days and meeting all other requirements Future Appointments No visits were found meeting these conditions. Showing future appointments within next 90 days and meeting all other requirements UCTION BOW MAKER documented in this encounter Plan of Treatment Not on file documented as of this encounter Visit Diagnoses Not on filedocumented in this encounter Care Teams Loop Drier Operator Relationship Specialty Start Date End Date Irving Jeffries MD [address] [place] [address] PCP - General Internal Medicine 07/16/21 07/04/24 documented as of this encounter
--- OUTSIDE RECORDS SUMMARY | 2024-07-28 14:09 | XMS_ITS | Encounter Summary ---
Author Organization [facility] Address [address] [place] [address] Phone Care Team Providers Care Cheesemaker Helper Name Role Phone Irving Jeffries MD Primary Care Provider Ton Ling RUG DYER, HAM STRIPPER Unavailable Ame Scanlon RUG DYER, HAM STRIPPER Unavailable Michael Ahmadi MD Unavailable Reason for Visit * Reason Onset Date Comments Advice Only 08/09/2023 Encounter Details Date Type Department Care Team (Late st Contact Info) Description 08/09/2023 Telephone [facility] - Internal Medicine - [place] [address] [place] [address] Irving Jeffries MD [address] [place] [address] Advice Only Social History Tobacco Use Types Packs/Day Years Used Date Smoking Tobacco: Former Cigarettes 2 20 Smokeless Tobacco: Never Alcohol Use Standard Drinks/Week Comments Not Currently 0 (1 standard drink = 0.6 oz pur e alcohol) [facility] Utilities Answer Date Recorded In [...] often do you attend chur ch or synagogue services? Patient unable to answer 08/14/2023 Do you belong to any clubs o r organizations such as cheondoism groups, unions, fraternal or athletic groups, or [...] Total Score - Questions 1-9 0 07/31 [facility] - Occupational Stress Questionnaire Answer Date [...] (including now)? Patient unable to answer 08/14/2023 Sex and Gender Information Value Date Recorded [...] Ashby CMA documented as of this encounter Miscellaneous Notes * Telephone Encounter - Quynh Duncan RN - 08/09/2023 12:52 PM CST Luciano Figueredo called and states that pt has barakat bag and there is about 500mL of dark red blood in bag, Bea states she was wanting to send pt to ED, agree and advice pt to be evaluated in ED. TATION TRUCK CLEANER * Telephone Encounter - Chloe Rosenbaum - 08/09/2023 12:24 PM CST Urgent return call [facility] with [facility] called to speak to the nurse on an urgent matter. Please return call as soon as possible. Phone - [phone] TATION TRUCK CLEANER documented in this encounter Plan of Treatment Not on file documented as of this encounter Visit Diagnoses Not on filedocumented in this encounter Additional Health Concerns 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 07/28/2023 09/04/2023 8:45 AM SANITATION TRUCK CLEANER documented as of this encounter Care Teams Cheesemaker Helper Relationship Specialty Start Date End Date Irving Jeffries MD [address] [place] [address] PCP - General Internal Medicine 07/16/21 07/04/24 Ton Ling, RUG DYER, HAM STRIPPER [address] [place] [address] Nurse Practitioner Advanced Practice Nurse 04/24/23 Ame Scanlon RUG DYER, HAM STRIPPER [address] [facility] [address] [place] [address] Nurse Practitioner Cardiology 08/23/23 Michael Ahmadi MD [address] [place] [address] Consulting Physician Medical Oncology 07/26/23 documented as of this encounter
--- OUTSIDE RECORDS SUMMARY | 2024-07-28 14:09 | XMS_ITS | Encounter Summary ---
Author Organization [facility] Address [address] [place] [address] Phone Care Team Providers Care Fingernail Sculptor Name Role Phone Irving Jeffries MD Primary Care Provider Encounter Details Date Type Department Care Team (Late st Contact Info) Description 04/12/2023 Telephone [facility] - Internal Medicine - [place] [address] [place] [address] Irving Jeffries MD [address] [facility] [place] [address] Social History Tobacco Use Types [...] Miscellaneous Notes * Telephone Encounter - Gilda Hagen December, PAC - 04/13/2023 7:57 AM CDT Please evaluate for any evidence of bleeding/bruising petechiae etc.. * Telephone Encounter - Irving Jeffries MD - 04/12/2023 5:14 PM CDT They need to contact Supervisor Heat Treating-Dr. Ahmadi's office * Telephone Encounter - Quynh Duncan RN - 04/12/2023 3:19 PM CDT Forwarding to providers * Telephone Encounter - October - 04/12/2023 3:11 PM CDT Bhakti at [facility] called and said patients platelets are down to 24 documented in this encounter Plan of Treatment Not on file documented as of this encounter Visit Diagnoses Not on filedocumented in this encounter Care Teams Fingernail Sculptor Relationship Specialty Start Date End Date Irving Jeffries MD [address] [place] [address] PCP - General Internal Medicine 07/16/21 07/04/24 documented as of this encounter
--- OUTSIDE RECORDS SUMMARY | 2024-07-28 14:09 | XMS_ITS | Encounter Summary ---
Author Organization [facility] Address [address] [place] [address] Phone Care Team Providers Care Health Lead Name Role Phone Irving Jfefries MD Primary Care Provider [phone] Reason for Referral * Radiology Services (Routine) - Closed Specialty Diagnoses / Procedures Referred By Contac t Referred To Contact Radiology Diagnoses Thrombocytopenia (HCC) Anemia, unspecified type Procedures US ABDOMEN COMPLETE Gilda Hagen, PAC [address] [place] [address] Phone: tel: fax: Referral ID Status Reason Start Date Expiration Date Visits Re quested Visits Authorized [id number] Closed 03/20/2023 1 1 Reason for Visit * Radiology Services (Routine) - Closed Specialty Diagnoses / Procedures Referred By Contac t Referred To Contact Radiology Diagnoses Thrombocytopenia (HCC) Anemia, unspecified type Procedures US ABDOMEN COMPLETE Gilda Hagen, PAC [address] [place] [address] Phone: tel: fax: Referral ID Status Reason Start Date Expiration Date Visits Re quested Visits Authorized [id number] Closed 03/20/2023 1 1 Encounter Details Date Type Department Care Team (Latest Contact Info) Description 03/21/2023 8:18 AM CDT - 03/21/2023 11:59 PM CDT Hospital Encounter [facility] Ultrasound [address] [place] [address] Gilda Hagen, PAC [address] [place] [address] Discharge Disposition: Discharged to home or Selfcare [...] suspected to have Coronavirus/COVID-19? No / Unsure 03/21/2023 8:09 AM CDT documented as of this encounter Medications at Time of Discharge amLODIPine (NORVASC) 10 MG Tablet Take 1 [...] ONCE DAILY 946 mL 11 12/28/2021 4 omeprazole (PriLOSEC) 20 MG CAPSULE DELAYED RELEASE TAKE ONE CAPSULE BY MOUTH EVERY DAY 30 Capsule 7 08/09/2022 3 Psyllium (REGULOID PO) Take by mouth 2 times daily. 1 TABLESPOON IN 8OZ WATER 4 sertraline (ZOLOFT) 50 MG Tablet Take 50 mg by mouth daily. 4 documented as of this encounter Plan of Treatment Not on file documented as of this encounter Procedures Procedure Name Priority Date/Time Associated Diagnosis Comments US ABDOMEN COMPLETE Routine 03/21/2023 9 :29 AM CDT Thrombocytopenia (HCC) Anemia, unspecified type documented in this encounter Results * US ABDOMEN COMPLETE [...] Electronically signed by ??Gopi Beth M.D. CH: CH D: ??03/21/2023 5:58 PM T: ??03/21/2023 5:58 PM Report ID: [id number] Reading Location: ??[id number] Procedure Note Gopi Beth Jr., MD - [...] Gopi Beth M.D. CH: SAÚL Report ID: [id number] Reading Location: [id number] IMPRESSION: No evidence of an acute abnormality. Spleen size is normal. Cholelithiasis with no secondary features of acute cholecystitis. Bilateral renal cysts. Hepatic steatosis. Gilda Hagen PAC IMG US ORDERABLES Final R esult documented in this encounter Visit Diagnoses Diagnosis Thrombocytopenia (HCC) Thrombocytopenia, unspecified Anemia, unspecified type documented in this encounter Care Teams Health Lead Relationship Specialty Start Date End Date Irving Jeffries MD [address] [place] [address] PCP - General Internal Medicine 07/16/21 07/04/24 documented as of this encounter
--- OUTSIDE RECORDS SUMMARY | 2024-07-28 14:09 | XMS_ITS | Encounter Summary ---
Author Organization [facility] Address [address] [place] [address] Phone Care Team Providers Care Automatic Fabric Cutter Name Role Phone Irving Jeffries MD Primary Care Provider Ton Ling HOSPICE CONSULTANT, RIVET PASSER Unavailable [phone] Encounter Details Date Type Department Care Team (Late st Contact Info) Description 05/10/2023 Telephone [facility] Oncology Services [address] [place] [address] Michael Ahmadi MD [address] [place] [address] Social History Tobacco Use Types [...] Telephone Encounter - Candida Alaniz RN - 05/10/2023 3:03 PM CDT Bhakti from facility calling stating patient Platelet level is 18. Bhakti states no symptoms of bruising, bleed or petechiae. She will fax over full report when received by the facility and patient will have labs checked again in 1 month. Next follow up scheduled for 07/26/23. Patient current parameters are only to treat below a level of 14. documented in this encounter Plan of Treatment Not on file documented as of this encounter Visit Diagnoses Not on filedocumented in this encounter Care Teams Automatic Fabric Cutter Relationship Specialty Start Date End Date Irving Jeffries MD [address] [place] [address] PCP - General Internal Medicine 07/16/21 07/04/24 Ton Ling, HOSPICE CONSULTANT, RIVET PASSER [address] [place] [address] Nurse Practitioner Advanced Practice Nurse 04/24/23 documented as of this encounter
--- OUTSIDE RECORDS SUMMARY | 2024-07-28 14:09 | XMS_ITS | Encounter Summary ---
Author Organization [facility] Address [address] [facility] [place] [address] Phone Care Team Providers Care Museum Archivist Name Role Phone Irving Jeffries MD Primary Care Provider Reason for Visit * Reason Comments Hypertension Encounter Details Date Type Department Care Team (Late st Contact Info) Description 02/21/2023 Nursing Facility [facility] - Internal Medicine - [place] [address] [place] [address] Irving Jeffries MD [address] [place] [address] Essential hypertension, benign (Primary Dx); Mixed hyperlipidemia; GERD without esophagitis; Screening for prostate cancer Social History Tobacco Use Types Packs/Day Years [...] as of this encounter Progress Notes * Irving Jeffries MD - 02/21/2023 4:14 PM CDT Halfway Progress Note 02/21/2023 Iván Asift 1945 Halfway: [facility] Type of Visit: {BLANK/FREE TEXT:[id number] Medications and allergies has been reviewed and updated. CC/HPI Chief Complaint Patient presents with ??? Hypertension Patient was seen for follow-up for hypertension and other medical problems. Patient is feeling well. No headache or dizziness. No chest pain or palpitation. Tolerating medications well. ROS: Review of Systems Review of systems was negative, except as documented in HPI PHYSICAL EXAM: Vital signes reviewed. His blood pressure stays elevated. HEENT- Normocephalic. Conjunctiva-Normal, Viktor SREE, Cervical LN- not palpable. Thyroid- NL Heart- S1 S2- regular Lungs- Clear on auscultation. No wheezing. No rales Abdomen- No distention, soft, non tender, BS-NL LE- No edema Skin- warm and dry ASSESSMENT & PLAN: Diagnoses and all orders for this visit: Essential hypertension, benign Mixed hyperlipidemia GERD without esophagitis Other orders - amLODIPine (NORVASC) 10 MG Tablet; Take 1 Tablet by mouth daily. Will increase amlodipine to 10 mg daily. Continue other medications. Check CMP, lipid profile, PSA Voice recognition software was utilized in this dictation. Despite proof reading, typographical errors and/or content errors may have occurred. By: Irving Jeffries MD 02/21/2023 4:16 PM CDT documented in this encounter Plan of Treatment Not on file documented as of this encounter Procedures Procedure Name Priority Date/Time Associated Diagnosis Comments PSA SCREEN Routine 03/01/2023 12:00 AM CDT LIPID PANEL Routine 03/01/2023 12:00 AM CDT CMP (COMPREHENSIVE METABOLIC PANEL) Routine 03/01/2023 12:00 AM CDT documented in this encounter Results * (ABNORMAL) PSA SCREEN (03/15/2023 11:31 AM CDT) PSA SCREEN, TOTAL 9.18(H) <4.00 ng/mL 03/15/2023 1:22 PM CDT [facility] Blood Venipuncture / Unknown 03/15/2023 11:31 AM CDT 03/15/2023 12:18 PM CDT Narrative [facility] - 03/15/2023 1:22 PM CDT The SEARCH ENGINE OPTIMIZER Total PSA assay is a Chemiluminescent Microparticle Immunoassay (CMIA) for the quantitative determination of total PSA (both free PSA and PSA complexed to [id number]) in human serum. us Irving Jeffries MD CHEMISTRY ORDERABLES Final Result [facility] [address] [place] [address] * (ABNORMAL) LIPID PANEL (03/15/2023 11:31 AM CDT) CHOLESTEROL 168 <200 mg/dL 03/15/2023 1:18 PM CDT [facility] TRIGLYCERIDES 611(H) <150 mg/dL 03/15/2023 1:18 PM CDT [facility] HDL CHOLESTEROL 24(L) >40 mg/dL 1:18 PM CDT [facility] LDL 03/15/2023 1:18 PM CDT [facility] Comment:Unable to calculate LDL when Triglycerides are greater than 400. Direct measurement of LDL is available upon request as a separate test. VLDL 03/15/2023 1:18 PM CDT [facility] Comment:Cannot be calculated due to Hypertriglyceridemia. CHOL/HDL RATIO 7.0(H) 0.0 - 4.4 03/15/2023 1:18 PM CDT [facility] NON-HDL CHOLESTEROL 144(H) <130 mg/dL 03/15/2023 1:18 PM CDT [facility] Blood Venipuncture / Unknown 03/15/2023 11:31 AM CDT 03/15/2023 12:18 PM CDT us Irving Jeffries MD CHEMISTRY ORDERABLES Final Result [facility] [address] [place] [address] * (ABNORMAL) CMP (COMPREHENSIVE METABOLIC PANEL) (03/15/2023 11:31 AM CDT) SODIUM 141 136 - 145 mmol/L 03/15/2023 1:18 PM CDT [facility] POTASSIUM 4.2 3.5 - 5.1 mmol/L 03/15/2023 1:18 PM CDT [facility] CHLORIDE 107 98 - 107 mmol/L 03/15/2023 1:18 PM CDT [facility] CO2, VENOUS 22 22 - 30 mmol/L 03/15/2023 1:18 PM CDT [facility] ANION GAP 16.2 <18.0 mmol/L 03/15/2023 1:18 PM CDT [facility] GLUCOSE 122(H) 70 - 99 mg/dL 03/15/2023 1:18 PM CDT [facility] BUN 12 8 - 26 mg/dL 03/15/2023 1:18 PM CDT [facility] CREATININE, BLOOD 0.85 0.70 - 1.30 mg/dL 03/15/2023 1:18 PM CDT [facility] BUN/CREATININE RATIO 14 12 - 20 ratio 03/15/2023 1:18 PM CDT [facility] TOTAL PROTEIN 7.4 6.3 - 8.2 g/dL 03/15/2023 1:18 PM CDT [facility] ALBUMIN 4.2 3.5 - 5.0 g/dL 03/15/2023 1:18 PM CDT [facility] A/G RATIO 1.3 1.0 - 2.2 03/15/2023 1:18 PM CDT [facility] CALCIUM 9.0 8.7 - 10.5 mg/dL 03/15/2023 1:18 PM CDT [facility] T BILI 0.3 0.2 - 1.2 mg/dL 03/15/2023 1:18 PM CDT [facility] SGOT (AST) 18 5 - 34 U/L 03/15/2023 1:18 PM CDT [facility] SGPT (ALT) 28 0 - 55 U/L 03/15/2023 1:18 PM CDT [facility] ALKALINE PHOSPHATASE 72 40 - 150 U/L 03/15/2023 1:18 PM CDT [facility] IS THE PATIENT REQUIRED TO BE FASTING? No 03/15/2023 1:18 PM CDT [facility] GFR, ESTIMATED >60 >=60 03/15/2023 1:18 PM CDT [facility] Comment: Creatinine Clearance is the preferred criteria for selecting drug dose adjustments in renally impaired patients. ??The GFR is provided as additional pertinent clinical information. GFR is reported in mL/min/1.73 sq m. Calculation based on the Chronic Kidney Disease Epidemiology Collaboration (CKD- EPI) equation refit without adjustment for race. GFR, EST. >60 >=60 023 1:18 PM CDT [facility] GFR, EST. NONAFRICAN >60 >=60 03/15/2023 1:18 PM CDT [facility] Blood Venipuncture / Unknown 03/15/2023 11:31 AM CDT 03/15/2023 12:18 PM CDT us Irving Jeffries MD CHEMISTRY ORDERABLES Final Result [facility] [address] [place] [address] * LIPID PANEL (03/01/2023 12:00 AM CDT) 03/01/2023 us Irving Jeffries MD CHEMISTRY ORDERABLES Final Result SCAN * PSA SCREEN (03/01/2023 12:00 AM CDT) PSA (PROSTATE SPECIFIC ANTIGEN) 8.19 ng/mL SCAN 03/01/2023 us Irving Jeffries MD CHEMISTRY ORDERABLES Final Result SCAN * CMP (COMPREHENSIVE METABOLIC PANEL) (03/01/2023 12:00 AM CDT) 03/01/2023 us Irving Jeffries MD CHEMISTRY ORDERABLES Final Result Performing Organization Address City/[facility] de Phone Number SCAN documented in this encounter Visit Diagnoses Diagnosis Essential hypertension, benign- Primary Mixed hyperlipidemia GERD without esophagitis Esophageal reflux Screening for prostate cancer Special screening for malignant neoplasm of prostate documented in this encounter Care Teams Museum Archivist Relationship Specialty Start Date End Date Irving Jeffries MD [address] [place] [address] PCP - General Internal Medicine 07/16/21 07/04/24 documented as of this encounter
--- OUTSIDE RECORDS SUMMARY | 2024-07-28 14:09 | XMS_ITS | Encounter Summary ---
Author Organization [facility] Address [address] [address] Phone Care Team Providers Care Ice Guard Inspector Name Role Phone Irving Jeffries MD Primary Care Provider [phone] Reason for Visit * Reason Onset Date Comments Results 02/15/2023 Encounter Details Date Type Department Care Team (Late st Contact Info) Description 02/15/2023 Telephone [facility] - [place] [address] [place] [address] Irving Jeffries MD [address] [facility] [place] [address] Results Social History Tobacco Use Types Packs/Day Years [...] Encounter - Mariposa Eduardo RN - 02/15/2023 5:18 PM CDT See triage encounter for this (per Kell, triage patient). * Telephone Encounter - October - 02/15/2023 3:35 PM CDT [facility] called with a critical on a patient his platelet count is down to 31 Call back # [phone] documented in this encounter Plan of Treatment Not on file documented as of this encounter Visit Diagnoses Not on filedocumented in this encounter Care Teams Ice Guard Inspector Relationship Specialty Start Date End Date Irving Jeffries MD [address] [place] [address] PCP - General Internal Medicine 07/16/21 07/04/24 documented as of this encounter
--- OUTSIDE RECORDS SUMMARY | 2024-07-28 14:09 | XMS_ITS | Encounter Summary ---
Author Organization [employer] Care Team Providers Care Demolition Specialist Name Role Phone Irving Jeffries MD Primary Care Provider [phone] Encounter Details Date Type Department Care Team (Latest Contact Info) Description 03/21/2023 Travel Social History Tobacco Use Types Packs/Day [...] on filedocumented in this encounter Care Teams Demolition Specialist Relationship Specialty Start Date End Date Irving Jeffries MD [address] [place] [address] PCP - General Internal Medicine 07/16/21 07/04/24 documented as of this encounter
--- OUTSIDE RECORDS SUMMARY | 2024-07-28 14:09 | XMS_ITS | Encounter Summary ---
Author Organization [facility] Address [address] [place] [address] Phone Care Team Providers Care Interactive Web Developer Name Role Phone Irving Jeffries MD Primary Care Provider [phone] Ton Ling APRN, [facility] Unavailable [phone] Michael Ahmadi MD Unavailable [phone] Reason for Visit * Auth/Cert (Routine) Specialty Diagnoses / Procedures Referred By Contclay t Referred To Contact Referral ID Status Reason Start Date Expiration Date Visits Re quested Visits Authorized [id number] 1 1 Encounter Details Date Type Department Care Team (Late st Contact Info) Description 08/09/2023 11:30 AM RELAYS DRAFTSPERSON [facility] [address] [place] [address] Bea Clark, RN [place] SN - OASIS START OF CARE Social History Tobacco Use Types Packs/Day Years Used Date Smoking Tobacco: Former Cigarettes 2 20 Smokeless Tobacco: Never Alcohol Use Standard Drinks/Week Comments Not Currently 0 (1 standard drink = 0.6 oz pur e alcohol) [facility] Utilities Answer Date Recorded In the [...] How often do you attend chur or buddhism services? Patient unable to answer 08/14/2023 Do [...] - Questions 1-9 0 07/31 [facility] - Occupational Stress Questionnaire Answer [...] Sign Reading Time Taken Comments Blood Pressure 88/46 08/09/2023 12:12 PM RELAYS DRAFTSPERSON el ectronic Pulse 97 08/09/2023 12:11 PM RELAYS DRAFTSPERSON Temperature 36.2 ??C (97.1 ??F) 08/09/2023 12:[address] Respiratory Rate - - Oxygen Saturation 97% 08/09/2023 12:11 PM RELAYS DRAFTSPERSON Inhaled Oxygen Concentration - - Weight - [...] Time 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 07/28/2023 09/04/2023 8:45 AM RELAYS DRAFTSPERSON documented as of this encounter Home Health Visit - Care Plan Visit Details Visit Type -SN - OASIS START OF CARE Discipline -Snf Problems Problem Description Start Date Status Goals Interve ntions FALL PREVENTION (O) Disciplines: SN, PT, OT, QUALITY CONTROL OPERATOR, HCA, BURNER TENDER, RT 08/09/2023 Active 1 goal linked to scheduled/documen hector intervention 1 goal intervention scheduled/document ed in this visit ALL HH VITAL SIGN PARAMETERS Disciplines: All Home Care 08/09/2023 Active - 1 problem intervention scheduled/document ed in this visit PNEUMONIA ORDERS Disciplines: Snf Pneumonia Orders 08/09/2023 Active 1 goal linked to scheduled/documen hector intervention 1 goal intervention scheduled/document ed in this visit SAFETY/PREVENTI ON EDUCATION Disciplines: Snf Safety/Preventio n Education 08/09/2023 Active - 1 problem intervention scheduled/document ed in this visit SN GENERAL ORDERS Disciplines: Snf SN General Orders 08/09/2023 Active 1 goal linked to scheduled/documen hector intervention 2 goal interventions scheduled/document ed in this visit INDWELLING CATHETER CARE Disciplines: Snf Indwelling Catheter Care 08/09/2023 Active 1 goal linked to scheduled/documen hector intervention 1 goal intervention scheduled/document ed in this visit DEPRESSION Disciplines: Snf 08/09/2023 Active 1 goal linked to scheduled/documen [...] Target date: 09/09/23 INDWELLING CATHETER CARE No Depression DEPRESSION No Interventions Intervention Associated Problem/Goal Status [...] Completed Exacerbation/ complications noted at this visit: Patient's catheter draining red blood General Nursing Plan of Care (Order Only) [...] went into afib w/RVR. Patient lives at half-way with 24 hour care. Skilled Nurse Focus: catheter maintenance/education Physical Therapy to evaluate and treat for: weakness, deconditioning Occupational Therapy to evaluate and treat for: ADL education with strength conservation Speech Therapy to evaluate and treat for: none ordered Social Work Focus: none ordered Political Reporter to provide: none ordered Past Medical History: [...] Problem:INDWELLING CATHETER CARE Goal:Indwelling Catheter Care Completed Depression (O) Problem:DEPRESSION Goal:Depression Completed Depression Education Provided: Lifestyle- [...] understanding. documented in this encounter Care Teams Interactive Web Developer Relationship Specialty Start Date End Date Irving Jeffries MD [address] [place] [address] PCP - General Internal Medicine 07/16/21 07/04/24 Ton Ling APRN, RESEARCH TEST ENGINE EVALUATOR [address] [place] [address] Nurse Practitioner Advanced Practice Nurse 04/24/23 Michael Ahmadi MD [address] [place] [address] Consulting Physician Medical Oncology 07/26/23 documented as of this encounter
--- OUTSIDE RECORDS SUMMARY | 2024-07-28 14:09 | XMS_ITS | Encounter Summary ---
Author Organization [facility] Address [address] [place] [address] Phone Care Team Providers Care Fuel Cell Assembler Name Role Phone Irving Jeffries MD Primary Care Provider Reason for Visit * Reason Comments Follow-up Encounter Details Date Type Department Care Team (Late st Contact Info) Description 09/06/2022 Nursing Facility [facility] - Internal Medicine - [place] [address] [place] [address] Irving Jeffries MD [address] [place] [address] GERD without esophagitis (Primary Dx); Mixed hyperlipidemia Social History Tobacco Use Types Packs/Day Years Used Date Smoking Tobacco: Never Smokeless Tobacco: Never Sex and Gender Information Value Date Recorded Sex Assigned at Not on file Legal Sex Male 11:18 PM CDT Gender Identity Not on file Sexual Orientation Not on file documented as of this encounter Progress Notes * Irving Jeffries MD - 09/06/2022 4:40 PM CST [facility] Progress Note 09/06/2022 Iván Dumont 1945 [facility]: [facility] Type of Visit: {BLANK/FREE TEXT:[id number] Medications and allergies has been reviewed and updated. CC/HPI Chief Complaint Patient presents with ??? Follow-up Patient is feeling well. Tolerating medications well. ROS: Review of Systems [...] Diagnoses and all orders for this visit: GERD without esophagitis Mixed hyperlipidemia Continue current medications and care Voice recognition software was utilized in this dictation. Despite proof reading, typographical errors and/or content errors may have occurred. By: Irving Jeffries MD 09/06/2022 4:41 PM MANUAL ARTS THERAPIST AL ARTS THERAPIST documented in this encounter Plan of Treatment Not on file documented as of this encounter Visit Diagnoses Diagnosis GERD without esophagitis- Primary Esophageal reflux Mixed hyperlipidemia documented in this encounter Care Teams Fuel Cell Assembler Relationship Specialty Start Date End Date Irving Jeffries MD [address] [place] [address] PCP - General Internal Medicine 07/16/21 07/04/24 documented as of this encounter
--- OUTSIDE RECORDS SUMMARY | 2024-07-28 14:09 | XMS_ITS | Encounter Summary ---
Author Organization [employer] Care Team Providers Care Silver Service Waiter Name Role Phone Irving Jeffries MD Primary Care Provider [phone] Encounter Details Date Type Department Care Team (Latest Contact Info) Description 02/02/2023 Travel Social History Tobacco Use Types Packs/Day [...] on filedocumented in this encounter Care Teams Silver Service Waiter Relationship Specialty Start Date End Date Irving Jeffries MD [address] [place] [address] PCP - General Internal Medicine 07/16/21 07/04/24 documented as of this encounter
--- OUTSIDE RECORDS SUMMARY | 2024-07-28 14:09 | XMS_ITS | Encounter Summary ---
Author Organization [facility] Address [address] [place] [address] Phone Care Team Providers Care Advertising Solicitor Name Role Phone Irving Jeffries MD Primary Care Provider [phone] Ton Ling APRN, [facility] Unavailable [phone] Michael Ahmadi MD Unavailable [phone] Reason for Visit * Auth/Cert (Routine) Specialty Diagnoses / Procedures Referred By Contclay t Referred To Contact Referral ID Status Reason Start Date Expiration Date Visits Re quested Visits Authorized [id number] 1 1 Encounter Details Date Type Department Care Team (Latest Contact Info) Description 08/10/2023 1:30 PM GREASE MACHINE WORKER [facility] [address] [place] [address] Jhoana Day, PT [place] PT - INITIAL EVALUATION Social History Tobacco Use Types Packs/Day Years Used Date Smoking Tobacco: Former Cigarettes 2 20 Smokeless Tobacco: Never Alcohol Use Standard Drinks/Week Comments Not Currently 0 (1 standard drink = 0.6 oz pur e alcohol) [facility] Utilities Answer Date Recorded In the past 12 months has [employer], gas, oil, or water company threatened to [...] declined 07/28/2023 How often do you attend gnosticism or evangelical serv ices? Patient declined 07/28/2023 Do you [...] care, and heating? Patient declined 07/28/2023 [facility] - Occupational Stress Questionnaire Answer [...] Sign Reading Time Taken Comments Blood Pressure 124/70 08/10/2023 1:42 PM GREASE MACHINE WORKER Pulse 90 08/10/2023 1:42 PM GREASE MACHINE WORKER Temperature 36.6 ??C (97.8 ??F) 08/10/2023 1:42 PM CS T Respiratory Rate 18 08/10/2023 1:42 PM GREASE MACHINE WORKER Oxygen Saturation 100% 08/10/2023 1:42 PM GREASE MACHINE WORKER Inhaled Oxygen Concentration - - Weight 86.2 kg (190 lb) 08/10/2023 1:42 PM GREASE MACHINE WORKER Height 182.9 cm (6') 08/10/2023 1:42 PM GREASE MACHINE WORKER Body Mass Index 25.77 08/10/2023 1:42 PM GREASE MACHINE WORKER documented in this encounter Plan of Treatment Not on file documented as of this encounter Visit Diagnoses Not on filedocumented in this encounter Additional Health Concerns 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 07/28/2023 09/04/2023 8:45 AM GREASE MACHINE WORKER documented as of this encounter Home [...] symptoms). documented in this encounter Care Teams Advertising Solicitor Relationship Specialty Start Date End Date Irving Jeffries MD [address] [place] [address] PCP - General Internal Medicine 07/16/21 07/04/24 Ton Ling, DIRECTOR VISUAL, HL7 DEVELOPER [address] [place] [address] Nurse Practitioner Advanced Practice Nurse 04/24/23 Michael Ahmadi MD [address] [place] [address] Consulting Physician Medical Oncology 07/26/23 documented as of this encounter
--- OUTSIDE RECORDS SUMMARY | 2024-07-28 14:09 | XMS_ITS | Encounter Summary ---
Author Organization [facility] Address [address] [facility] [place] [address] Phone Care Team Providers Care Supervisor Labor Gang Name Role Phone Irving Jeffries MD Primary Care Provider Encounter Details Date Type Department Care Team (Late st Contact Info) Description 04/12/2023 Telephone [facility] Oncology Services [address] [place] [id number] Gilda Hagen Monika, PAC [address] [place] [address] Social History Tobacco Use Types Packs/Day Years [...] Telephone Encounter - Candida Alaniz RN - 04/13/2023 10:08 AM CDT Returned call to Bhakti verified patient has no symptoms of bruising, bleeding or petechiae. Directed that if asymptomatic we will still only plan to treat a platelet count less than 14 and per Gilda continue to check labs monthly. Bhakti verbalized understanding all instructions provided and will call office with any additional concerns or questions. * Telephone Encounter - Candida Alaniz RN - 04/12/2023 3:43 PM CDT Bhakti calling from facility labs drawn today - Platelets 24 calling to make provider aware. Message sent for physician review. documented in this encounter Plan of Treatment Not on file documented as of this encounter Visit Diagnoses Not on filedocumented in this encounter Care Teams Supervisor Labor Gang Relationship Specialty Start Date End Date Irving Jeffries MD [address] [place] [address] PCP - General Internal Medicine 07/16/21 07/04/24 documented as of this encounter
--- OUTSIDE RECORDS SUMMARY | 2024-07-28 14:09 | XMS_ITS | Encounter Summary ---
Author Organization [facility] Address [address] [facility] [place] [address] Phone Care Team Providers Care School Cleaner Name Role Phone Irving Jeffries MD Primary Care Provider [phone] Reason for Visit * Reason Comments Medication Refill Encounter Details Date Type Department Care Team (Late st Contact Info) Description 08/09/2022 Refill [facility] - Internal Medicine - [place] [address] [place] [address] Irving Jeffries MD [address] [facility] [place] [address] Medication Refill Social History Tobacco Use Types Packs/Day Years Used Date Smoking Tobacco: Never Smokeless Tobacco: Never Sex and Gender Information Value Date Recorded Sex Assigned at Not on file Legal Sex Male 11:18 PM CDT Gender Identity Not on file Sexual Orientation Not on file documented as of this encounter Miscellaneous Notes * Telephone Encounter - Quynh Duncan RN - 08/09/2022 10:24 AM CST Medication(s) refilled and signed per [facility] Chronic Medication Refill Standing Order for Pediatricand Adult Patients. Requested Prescriptions Pending Prescriptions Disp Refills ??? omeprazole (PriLOSEC) 20 MG CAPSULE DELAYED RELEASE [Pharmacy Med Name: OMEPRAZOLE DR 20 MG CAPSULE] 30 Capsule 7 Sig: TAKE ONE CAPSULE BY MOUTH EVERY DAY Proton Pump Inhibitors Protocol Passed - 08/09/2022 10:22 AM Passed - Visit with relevant provider in past 12 months or upcoming 90 days Recent Visits Date Type Provider Dept 01/19/22 Nursing Facility Irving Jeffries MD [facility] Showing recent visits within past 365 days and meeting all other requirements Future Appointments No visits were found meeting these conditions. Showing future appointments within next 90 days and meeting all other requirements RO[facility]GAGE PORTER documented in this encounter Plan of Treatment Not on file documented as of this encounter Visit Diagnoses Not on filedocumented in this encounter Care Teams School Cleaner Relationship Specialty Start Date End Date Irving Jeffries MD [address] [place] [address] PCP - General Internal Medicine 07/16/21 07/04/24 documented as of this encounter
--- OUTSIDE RECORDS SUMMARY | 2024-07-28 14:09 | XMS_ITS | Encounter Summary ---
Author Organization [facility] Address [address] [place] [address] Phone Care Team Providers Care Auto Body Straightener Name Role Phone Irving Jeffries MD Primary Care Provider Reason for Visit * Reason Onset Date Comments Results 02/01/2023 Encounter Details Date Type Department Care Team (Late st Contact Info) Description 02/01/2023 Telephone [facility] - Internal Medicine - [place] [address] [place] [address] Irving Jeffries MD [address] [place] [address] Results Social History Tobacco Use [...] PM CDT documented as of this encounter Miscellaneous Notes * Telephone Encounter - Quynh Duncan RN - 02/01/2023 3:35 PM CDT Pt scheduled for appointment with quinn tomorrow 02/02/23 since Mervin is out of office. * Telephone Encounter - Nick Barth APRN, CNP - 02/01/2023 3:01 PM CDT Call for signs of bleeding, if bleeding go to ER. Otherwise, F/U with Dr. Jeffries or hematology this week. * Telephone Encounter - October - 02/01/2023 2:26 PM CDT Patients labs just came back with a critical, platelets were 34 documented in this encounter Plan of Treatment Not on file documented as of this encounter Visit Diagnoses Not on filedocumented in this encounter Care Teams Auto Body Straightener Relationship Specialty Start Date End Date Irving Jeffries MD [address] [place] [address] PCP - General Internal Medicine 07/16/21 07/04/24 documented as of this encounter
--- OUTSIDE RECORDS SUMMARY | 2024-07-28 14:09 | XMS_ITS | Encounter Summary ---
Author Organization [facility] Address [address] [place] [address] Phone Care Team Providers Care Circulator Name Role Phone Irving Jeffries MD Primary Care Provider Encounter Details Date Type Department Care Team (Late st Contact Info) Description 11/30/2021 Telephone [facility] - Internal Medicine - [place] [address] [place] [id number] Kell Michelle PAC [address] [place] [address] Social History Tobacco Use Types Packs/Day Years Used Date Smoking Tobacco: Never Assessed Sex and Gender Information Value Date Recorded Sex Assigned at Not on file Legal Sex Male 11:18 PM CDT Gender Identity Not on file Sexual Orientation Not on file documented as of this encounter Miscellaneous Notes * Telephone Encounter - Kell Michelle PAC - 11/30/2021 9:11 AM CDT Labs show mild anemia Platelets were low 104; last platelets were 131 Low Platelets have been low; forward to PCP for review when he returns documented in this encounter Plan of Treatment Not on file documented as of this encounter Visit Diagnoses Not on filedocumented in this encounter Care Teams Circulator Relationship Specialty Start Date End Date Irivng Jeffries MD [address] [place] [address] PCP - General Internal Medicine 07/16/21 07/04/24 documented as of this encounter
--- OUTSIDE RECORDS SUMMARY | 2024-07-28 14:09 | XMS_ITS | Encounter Summary ---
Author Organization [employer] Care Team Providers Care Ballistic Expert Name Role Phone Irving Jeffries MD Primary Care Provider [phone] Ton Ling APRN, DRILLING SUPERINTENDENT Unavailable + [phone] Encounter Details Date Type Department Care Team (Latest Contact Info) Description 06/20/2023 Travel Social History Tobacco Use Types Packs/Day [...] on filedocumented in this encounter Care Teams Ballistic Expert Relationship Specialty Start Date End Date Irving Jeffries MD [address] [place] [address] PCP - General Internal Medicine 07/16/21 07/04/24 Ton Ling APRN, DRILLING SUPERINTENDENT [address] [place] [address] Nurse Practitioner Advanced Practice Nurse 04/24/23 documented as of this encounter
--- OUTSIDE RECORDS SUMMARY | 2024-07-28 14:09 | XMS_ITS | Encounter Summary ---
Author Organization [facility] Address [address] [place] [address] Phone Care Team Providers Care Gas Turbine Assembler Name Role Phone Irving Jeffries MD Primary Care Provider Ton Ling APRN, MEDICAL SECRETARY RECEPTIONIST Unavailable [phone] Encounter Details Date Type Department Care Team (Late st Contact Info) Description 05/19/2023 Telephone [facility] [address] [place] [address] Ton Ling, KATHLEEN, MEDICAL SECRETARY RECEPTIONIST [address] [place] [address] Social History Tobacco Use Types Packs/Day Years [...] encounter Miscellaneous Notes * Telephone Encounter - LingTon APRN, CNP - 05/22/2023 3:55 PM CDT Reviewed and sent result note * Telephone Encounter - Mariza Chaudhry - 05/19/2023 9:16 AM CDT Pts mri of prostate from [facility] scanned into media. Please review. documented in this encounter Plan of Treatment Not on file documented as of this encounter Visit Diagnoses Not on filedocumented in this encounter Care Teams Gas Turbine Assembler Relationship Specialty Start Date End Date Irving Jeffries MD [address] [place] [address] PCP - General Internal Medicine 07/16/21 07/04/24 Ton Ling APRN, CNP [address] [place] [address] Nurse Practitioner Advanced Practice Nurse 04/24/23 documented as of this encounter
--- OUTSIDE RECORDS SUMMARY | 2024-07-28 14:09 | XMS_ITS | Encounter Summary ---
Author Organization [facility] Address [address] [place] [address] Phone Care Team Providers Care Curator Of Collections Name Role Phone Irving Jeffries MD Primary Care Provider Reason for Visit * Reason Comments Knee Pain Encounter Details Date Type Department Care Team (Late st Contact Info) Description 01/05/2023 8:51 PM CDT - 01/05/2023 11:21 PM CDT Emergency [facility] Emergency [address] [place] [address] Jasson Loomis MD [address] [place] [address] Altered gait Discharge Disposition: Discharged to home or Selfcare [...] PM CDT documented as of this encounter Last Filed Vital Signs Vital Sign Reading Time Taken Comments Blood Pressure 137/61 01/05/2023 9:30 PM CDT Pulse 107 01/05/2023 11:15 PM CDT Temperature 37.7 ??C (99.8 ??F) 01/05/2023 8:48 PM CD T Respiratory Rate 18 01/05/2023 8:48 PM CDT Oxygen Saturation 100% 01/05/2023 11:15 PM CDT Inhaled Oxygen Concentration - - Weight 93.4 kg (206 lb) 01/05/2023 8:48 PM CDT Height 180.3 cm (5' 11 ) 01/05/2023 8:48 PM CDT Body Mass Index 28.73 01/05/2023 8:48 PM CDT documented in this encounter Discharge Instructions * Attachments The following attachments cannot be sent through Care Everywhere. * Joint Pain (Beninese) * Arthritis [id number] (Beninese) documented in this encounter Medications at Time of Discharge amLODIPine (NORVASC) 5 MG Tablet TAKE ONE TABLET BY MOUTH EVERY DAY 30 Tablet 12 08/15/2022 3 docusate sodium (COLACE) 100 MG Capsule Take 100 mg by mouth 2 times daily. 4 ketorolac (TORADOL) 10 MG Tablet Take 1 Tablet by mouth every 6 hours as needed for Moderate or more severe pain. 20 Tablet 01/05/2023 3 lactulose (CHRONULAC) 10 GM/15ML Solution TAKE 30CC BY MOUTH ONCE DAILY 946 mL 11 12/28/2021 4 omeprazole (PriLOSEC) 20 MG CAPSULE DELAYED RELEASE TAKE ONE CAPSULE BY MOUTH EVERY DAY 30 Capsule 7 08/09/2022 3 Psyllium (REGULOID PO) Take by mouth 2 times daily. 1 TABLESPOON IN 8OZ WATER 4 documented as of this encounter ED Notes * Ghanshyam Bautista - 01/05/2023 11:20 PM CDT Patient discharged. Discharge instructions and patient educational material reviewed with patient and caregiver; questions and concerns addressed; patient and caregiver verbalizes understanding, using teach back. Patient was given 1 prescription. Patient discharged per ambulatory mode with caregiver as responsible republican. SL D/C'ed with Errol cath intact. No distress noted at this time. * Ghanshyam Bautista - 01/05/2023 9:37 PM CDT XR at bedside. * Jasson Loomis MD - 01/05/2023 9:03 PM CDT Chief Complaint Patient presents with ??? Knee Pain vIán Dumont is a 77 y.o. male who presents to the emergency department complaining of right knee pain. Patient states he is arthritis and has right knee pain. States it made it difficult for himto walk earlier. He is here with a healthcare worker who states that a 1/2 hour ago when he stood up he was leaning to the right. He did not fall. She thought he was short of breath at the time. Patient states he is fine. Past medical history: Illnesses: Hypertension, hyperlipidemia, schizophrenia Medications: See list Allergies: No known drug allergies Social History: Tobacco: Former smoker Alcohol: Nondrinker Marijuana: Denies Drugs: Denies This chart was created using a voice recognition program. There maybe grammatical and/or syntax errors that are unintentional. Current Facility-Administered Medications Medication Dose Route Frequency Provider Last Rate Last Admin ??? 0.9 % sodium chloride solution 125 mL/hr Intravenous Continuous Jasson Loomis MD 125 mL/hr at01/05/232128 125 mL/hr at 01/05/232128 Current Outpatient Medications Medication Sig Dispense Refill ??? amLODIPine (NORVASC) 5 MG Tablet TAKE ONE TABLET BY MOUTH EVERY DAY 30 Tablet 12 ??? docusate sodium (DULCOLAX) 100 MG Capsule Take 100 mg by mouth 2 times daily. ??? ketorolac (TORADOL) 10 MG Tablet Take 1 Tablet by mouth every 6 hours as needed for Moderate ormore severe pain. 20 Tablet 0 ??? lactulose (CHRONULAC) 10 GM/15ML Solution TAKE 30CC BY MOUTH ONCE DAILY 946 mL 11 ??? omeprazole (PriLOSEC) 20 MG CAPSULE DELAYED RELEASE TAKE ONE CAPSULE BY MOUTH EVERY DAY 30 Capsule 7 ??? Psyllium (REGULOID PO) Take by mouth 2 times daily. 1 TABLESPOON IN 8OZ WATER No Known Allergies History reviewed. No pertinent past medical history. No past surgical history on file. Social History Socioeconomic History ??? Marital status: Single Spouse name: Not on file ??? Number of children: Not on file ??? Years of education: Not on file ??? Highest education level: Not on file Occupational History ??? Not on file Tobacco Use ??? Smoking status: Never ??? Smokeless tobacco: Never Substance and Sexual Activity ??? Alcohol use: Not on file ??? Drug use: Not on file ??? Sexual activity: Not on file Other Topics Concern ??? Not on file Social History Narrative ??? Not on file BP 137/61 Pulse 101 Temp 99.8 ??F (37.7 ??C) (Tympanic) Resp 18 Ht 5' 11 (1.803 m) Wt 206 lb (93.4 kg) SpO2 95% BMI 28.73 kg/m?? Review of Systems Constitutional: Negative for activity change, appetite change, chills, diaphoresis, fatigue and fever. HENT: Negative for dental problem, rhinorrhea and sore throat. Eyes: Negative for visual disturbance. Respiratory: Negative for cough, chest tightness, shortness of breath and wheezing. Cardiovascular: Negative for chest pain, palpitations and leg swelling. Gastrointestinal: Negative for abdominal pain, constipation, diarrhea, nausea and vomiting. Genitourinary: Negative for difficulty urinating, flank pain, hematuria and urgency. Musculoskeletal: Negative for arthralgias, back pain, myalgias, neck pain and neck stiffness. Right knee pain Skin: Negative for color change and rash. Allergic/Immunologic: Negative for food allergies. Neurological: Negative for dizziness, syncope, weakness, light-headedness, numbness and headaches. Psychiatric/Behavioral: Negative for self-injury, sleep disturbance and suicidal ideas. All other systems reviewed and are negative. [...] Behavior normal. Thought Content: Thought content normal. Comments: Flat affect Procedures Imaging Results CT HEAD OR BRAIN WO CONTRAST (Final result) Result time 01/05/23 22:23:28 Final result by Augusto Spencer MD (01/05/23 22:23:28) Impression: IMPRESSION: No acute abnormality identified. 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 Images stored on PACS. Automated exposure control was used as a dose optimization technique for this examination. COMPARISON: None FINDINGS: BRAIN: No mass, hemorrhage, or recent infarct. Normal white matter. Volume within normal limits for age. VASCULAR: No dense vessel or obvious aneurysm. EXTRA-AXIAL SPACES: No mass or fluid collection. ORBITS/GLOBES: Unremarkable. SOFT TISSUES: Unremarkable. BONES/SINUSES: No fracture or lesion. Paranasal sinuses and other skullbase airspaces are clear. THIS IS AN ELECTRONICALLY VERIFIED FINAL REPORT 01/05/2023 10:20 PM - Electronically signed by Augusto Spencer M.D. AR: JOHN Report ID: [id number] Reading Location: [id number] XR KNEE 1 OR 2 VIEWS RIGHT (Final result) Result time 01/05/23 22:27:59 Procedure changed from XR KNEE MINIMUM 4 VIEWS RIGHT Final result by Mario Alberto Hawthorne MD (01/05/23 22:27:59) Impression: IMPRESSION: No acute fracture. Moderate tricompartmental knee joint osteoarthritis. Mild sclerosis of the lateral femoral condyle and proximal tibia, likely related to degenerative change versus early bone infarct. MRI may prove helpful for further evaluation if clinically desired. Narrative: EXAM DESCRIPTION: XR KNEE 1 OR 2 VIEWS RIGHT REASON FOR STUDY: RT knee pain x 1 wk TECHNIQUE: 2 radiographic view(s) of the right knee . COMPARISON: None FINDINGS: The alignment is normal. Moderate tricompartmental knee joint osteoarthritis. Likely loose bodies within the joint space. Mild sclerosis of the lateral femoral condyle and proximal tibia. No acute fracture. No joint effusion. THIS IS AN ELECTRONICALLY VERIFIED FINAL REPORT 01/05/2023 10:25 PM - Electronically signed by Mario Alberto Hawthorne M.D. BB: ALANNA Report ID: [id number] Reading Location: [id number] XR KNEE MINIMUM 4 VIEWS RIGHT (Canceled) Labs Reviewed CMP (COMPREHENSIVE METABOLIC PANEL) - Abnormal; Notable for the following components: Result Value SODIUM 135 (*) CO2, VENOUS 20 (*) GLUCOSE 117 (*) CALCIUM 8.4 (*) All other components within normal limits URINALYSIS REFLEX IF INDICATED BY ABNORMAL RESULTS - Abnormal; Notable for the following components: WBC ESTERASE 25 /ul (*) PROTEIN, RANDOM URINE 30 mg/dL (*) URINE KETONES 5 mg/dL (*) URINE BLOOD 50 /uL (*) WBC (Urine) 6-10 (*) URINE RBC'S 3-5 (*) All other components within normal limits CBC WITH AUTO DIFFERENTIAL - Abnormal; Notable for the following components: RBC 4.22 (*) HEMOGLOBIN (HGB) 12.8 (*) PLATELET COUNT 102 (*) MPV 14.0 (*) NEUTROPHILS 81.6 (*) LYMPHOCYTES 9.8 (*) ABSOLUTE NEUTROPHILS 7.61 (*) All other components within normal limits CULTURE, URINE COMPLETE BLOOD COUNT (CBC) WITH DIFF Narrative: The following orders were created for panel order CBC w/ Diff. Procedure Abnormality Status --------- ------ CBC with Auto Differential[[id number]] Abnormal Final result Please view results for these tests on the individual orders. MDM X-ray of the knee visualized and interpreted by me. There appears to be narrowing of the joint space. No fracture, no dislocation Impression: Patient presents with altered gait and knee pain concerning for knee arthritis, fracture sprain, stroke. . Patient's history of schizophrenia has impacted care and subsequent medical decision making. In the workup of these potential diagnoses I considered but did not pursue stroke after negative head CT and exam, infection, necrotizing fasciitis due to signs and symptoms on exam and initial findings not consistent with these disease processes. Tests were independently reviewed and interpreted and imaging independently visualized and interpreted. This is notable for x-rays noted above Interventions and treatments in the ER Toradol with significant relief Plan for discharge to home. Discussed the case with patient. I will prescribe Toradol. Reasons to return to the emergency room were discussed. Clinical Impression 1. Arthritis of right knee 2. Chronic pain of right knee 3. Altered gait Disposition: Discharged The patient remained stable throughout their ED stay. My clinical impression was discussed with thepatient/caregiver. Any labs and radiology results were reviewed. Questions were addressed as completely as possible given the information available at present. The therapeutic plan was discussed, inst ructions were given and the importance of primary care follow up was stressed and encouraged. The patient/caregiver voiced understanding of the plan, indications to return, and the need for follow up. Reasons to return to the E.D. were discussed. New Medications: New Prescriptions KETOROLAC (TORADOL) 10 MG TABLET Take 1 Tablet by mouth every 6 hours as needed for Moderate or more severe pain. I have advised the patient to follow-up with: Irving Jeffries MD [address] [place] [address] In 1 week Dispostion: Discharge * Zully Hall RN - 01/05/2023 8:50 PM CDT Patient presents to ED triage via wheelchair with caregiver from facility. Facility reports elevatevitals and patient leaning to the right. Patient is A&O X 4 and reports none of that is an issue. Patient reports right knee pain that has been ongoing for a week and had gotten worse. Patients VSS in triage and no acute distress noted documented in this encounter Plan of Treatment Not on file documented as of this encounter Procedures Procedure Name Priority Date/Time Associated Diagnosis Comments CT HEAD OR BRAIN WO CONTRAST Stat with Interpretation 01/05/2023 9:46 PM CDT XR KNEE 1 OR 2 VIEWS RIGHT STAT 01/05/2023 9:43 PM CDT CBC WITH AUTO DIFFERENTIAL STAT 01/05/2023 9:23 PM CDT CMP (COMPREHENSIVE METABOLIC PANEL) STAT 01/05/2023 9:23 PM CDT COMPLETE BLOOD COUNT (CBC) WITH DIFF STAT 01/05/2023 9:23 PM CDT URINALYSIS REFLEX IF INDICATED BY ABNORMAL RESULTS STAT 01/05/2023 9:18 PM CDT CULTURE, URINE STAT 01/05/2023 9:18 PM CDT documented in this encounter Results * CT HEAD OR BRAIN WO CONTRAST (01/05/2023 9:46 PM CDT) Anatomical Region Laterality Modality Head N/A Computed Tomogra phy 01/05/2023 10:2 0 PM CDT Impressions 01/05/2023 10:23 PM CDT IMPRESSION: No acute abnormality identified. ?? Narrative 01/05/2023 10:23 PM CDT EXAM DESCRIPTION: ?? CT HEAD OR BRAIN WO CONTRAST REASON FOR STUDY: ?? when standing SUSTAINABILITY PROJECT MANAGER was leaning to the right ? TECHNIQUE: Axial images acquired through the brain without intravenous contrast. ??Images stored on PACS. ?? Automated exposure control was used as a dose optimization technique for this examination. COMPARISON: ?? None FINDINGS: ??BRAIN: ??No mass, hemorrhage, or recent infarct. ?? Normal white matter. ?? Volume within normal limits for age. VASCULAR: ??No dense vessel or obvious aneurysm. EXTRA-AXIAL SPACES: ??No mass or fluid collection. ORBITS/GLOBES: Unremarkable. SOFT TISSUES: ??Unremarkable. ?? BONES/SINUSES: ??No fracture or lesion. ?? Paranasal sinuses and other skullbase airspaces are clear. THIS IS AN ELECTRONICALLY VERIFIED FINAL REPORT 01/05/2023 10:20 PM - Electronically signed by ??Augusto Spencer M.D. AR: JOHN D: ??01/05/2023 10:20 PM T: ??01/05/2023 10:20 PM Report ID: [id number] Reading Location: ??[id number] Procedure Note Augusto Spencer MD - 01/05/2023 EXAM DESCRIPTION: CT HEAD OR BRAIN WO CONTRAST REASON FOR STUDY: when standing SUSTAINABILITY PROJECT MANAGER was leaning to the right TECHNIQUE: Axial images acquired through the brain without intravenous contrast. Images stored on PACS. Automated exposure control was used as a dose optimization technique for this examination. COMPARISON: None FINDINGS: BRAIN: No mass, hemorrhage, or recent infarct. Normal white matter. Volume within normal limits for age. VASCULAR: No dense vessel or obvious aneurysm. EXTRA-AXIAL SPACES: No mass or fluid collection. ORBITS/GLOBES: Unremarkable. SOFT TISSUES: Unremarkable. BONES/SINUSES: No fracture or lesion. Paranasal sinuses and other skullbase airspaces are clear. THIS IS AN ELECTRONICALLY VERIFIED FINAL REPORT 01/05/2023 10:20 PM - Electronically signed by Augusto Spencer M.D. AR: JOHN Report ID: [id number] Reading Location: [id number] IMPRESSION: No acute abnormality identified. Jasson Loomis MD IMG CT ORDERABLES Final Result * XR KNEE 1 OR 2 VIEWS RIGHT (01/05/2023 9:43 PM CDT) Anatomical Region Laterality Modality LOWER EXTREMITY, knee Right Digital Ra diography 01/05/2023 10:2 5 PM CDT Impressions 01/05/2023 10:27 PM CDT IMPRESSION: No acute fracture. Moderate tricompartmental knee joint osteoarthritis. Mild sclerosis of the lateral femoral condyle and proximal tibia, likely related to degenerative change versus early bone infarct. ?? MRI may prove helpful for further evaluation if clinically desired. Narrative 01/05/2023 10:27 PM CDT EXAM DESCRIPTION: XR KNEE 1 OR 2 VIEWS RIGHT REASON FOR STUDY: RT knee pain x 1 wk ? TECHNIQUE: 2 ??radiographic view(s) of the ??right knee . COMPARISON: None FINDINGS: The alignment is normal. ??Moderate tricompartmental knee joint osteoarthritis. ??Likely loose bodies within the joint space. ?? Mild sclerosis of the lateral femoral condyle and proximal tibia. ?? No acute fracture. ??No joint effusion. THIS IS AN ELECTRONICALLY VERIFIED FINAL REPORT 01/05/2023 10:25 PM - Electronically signed by ??Mario Alberto Hawthorne M.D. BB: ALANNA D: ??01/05/2023 10:25 PM T: ??01/05/2023 10:25 PM Report ID: [id number] Reading Location: ??[id number] Procedure Note Mario Alberto Hawthorne MD - 01/05/2023 EXAM DESCRIPTION: XR KNEE 1 OR 2 VIEWS RIGHT REASON FOR STUDY: RT knee pain x 1 wk TECHNIQUE: 2 radiographic view(s) of the right knee . COMPARISON: None FINDINGS: The alignment is normal. Moderate tricompartmental knee joint osteoarthritis. Likely loose bodies within the joint space. Mild sclerosis of the lateral femoral condyle and proximal tibia. No acute fracture. No joint effusion. THIS IS AN ELECTRONICALLY VERIFIED FINAL REPORT 01/05/2023 10:25 PM - Electronically signed by Mario Alberto Hawthorne M.D. BB: ALANNA Report ID: [id number] Reading Location: [id number] IMPRESSION: No acute fracture. Moderate tricompartmental knee joint osteoarthritis. Mild sclerosis of the lateral femoral condyle and proximal tibia, likely related to degenerative change versus early bone infarct. MRI may prove helpful for further evaluation if clinically desired. Jasson Loomis MD IMG DIAGNOSTIC ORDERABLES Final Result * (ABNORMAL) CBC with Auto Differential (01/05/2023 9:23 PM CDT) WBC 9.32 4.00 - 12.00 10(3)/mcL 01/05/2023 9:59 PM CDT [facility] RBC 4.22(L) 4.40 - 5.80 10(6)/[facility] 01/05/2023 9:59 PM CDT [facility] HEMOGLOBIN (HGB) 12.8(L) 13.0 - 16.5 g/dL 01/05/2023 9:59 PM CDT [facility] HEMATOCRIT (HCT) 39.0 38.0 - 50.0 % 01/05/2023 9:59 PM CDT [facility] MCV 92.4 82.0 - 96.0 fL 01/05/2023 9:59 PM CDT [facility] MCH 30.3 26.0 - 32.0 pg 01/05/2023 9:59 PM CDT [facility] MCHC 32.8 31.0 - 36.0 g/dL 01/05/2023 9:59 PM CDT [facility] PLATELET COUNT 102(L) 140 - 440 10(3)/mcL 01/05/2023 9:59 PM CDT [facility] RDW 14.0 11.8 - 15.5 % 01/05/2023 9:59 PM CDT [facility] MPV 14.0(H) 8.0 - 12.6 fL 01/05/2023 9:59 PM CDT [facility] NEUTROPHILS 81.6(H) 40.0 - 68.0 % 01/05/2023 9:59 PM CDT [facility] LYMPHOCYTES 9.8(L) 19.0 - 49.0 % 01/05/2023 9:59 PM CDT [facility] MONOCYTES 8.3 3.0 - 13.0 % 01/05/2023 9:59 PM CDT [facility] EOSINOPHILS 0.0 0.0 - 8.0 % 01/05/2023 9:59 PM CDT [facility] BASOPHILS 0.3 0.0 - 1.0 % 01/05/2023 9:59 PM CDT [facility] ABSOLUTE NEUTROPHILS 7.61(H) 1.40 - 5.30 10(3)/mcL 01/05/2023 9:59 PM CDT [facility] ABSOLUTE LYMPHOCYTES 0.91 0.90 - 3.30 10(3)/mcL 01/05/2023 9:59 PM CDT [facility] ABSOLUTE MONOCYTES 0.77 0.10 - 0.90 10(3)/mcL 01/05/2023 9:59 PM CDT [facility] ABSOLUTE EOSINOPHIL 0.00 0.00 - 0.50 10(3)/mcL 01/05/2023 9:59 PM CDT [facility] ABSOLUTE BASOPHILS 0.03 0.00 - 0.10 10(3)/[facility] 01/05/2023 9:59 PM CDT [facility] NRBC PER 100 WBC 0 01/06/20 9:59 PM CDT [facility] Blood Venipuncture / Unknown 01/05/2023 9:23 PM CDT 01/05/2023 9:50 PM CDT us Jasson Loomis MD HEMATOLOGY ORDERABLES Final Res ult [facility] [address] [place] [address] * (ABNORMAL) CMP (01/05/2023 9:23 PM CDT) SODIUM 135(L) 136 - 144 mmol/L 01/05/2023 10:13 PM CDT [facility] POTASSIUM 3.6 3.5 - 5.1 mmol/L 01/05/2023 10:13 PM CDT [facility] CHLORIDE 102 100 - 110 mmol/L 01/05/2023 10:13 PM CDT [facility] CO2, VENOUS 20(L) 22 - 32 mmol/L 01/05/2023 10:13 PM CDT [facility] ANION GAP 16.6 8.0 - 20.0 mmol/L 01/05/2023 10:13 PM CDT [facility] GLUCOSE 117(H) 70 - 99 mg/dL 01/05/2023 10:13 PM CDT [facility] BUN 13 8 - 23 mg/dL 01/05/2023 10:13 PM CDT [facility] CREATININE, BLOOD 0.92 0.80 - 1.30 mg/dL 01/05/2023 10:13 PM CDT [facility] BUN/CREATININE RATIO 14 12 - 20 ratio 01/05/2023 10:13 PM CDT [facility] TOTAL PROTEIN 6.9 6.0 - 8.3 g/dL 01/05/2023 10:13 PM CDT [facility] ALBUMIN 4.2 3.5 - 5.2 g/dL 01/05/2023 10:13 PM CDT [facility] Comment: The colormetric methods used for the determination of Albumin may lead to falsely elevated test results in patients suffering from renal failure or insufficiency due to interference with other proteins. A/G RATIO 1.6 1.0 - 2.0 01/05/2023 10:13 PM CDT [facility] CALCIUM 8.4(L) 8.9 - 10.3 mg/dL 01/05/2023 10:13 PM CDT [facility] T BILI 0.3 <=1.2 mg/dL 01/05/2023 10:13 PM CDT [facility] SGOT (AST) 15 <=40 U/L 01/05/2023 10:13 PM CDT [facility] SGPT (ALT) 13 <=41 U/L 01/05/2023 10:13 PM CDT [facility] ALKALINE PHOSPHATASE 69 40 - 130 U/L 01/05/2023 10:13 PM CDT [facility] GFR, ESTIMATED >60 >=60 01/05/2023 10:13 PM CDT [facility] Comment: Creatinine Clearance is the preferred criteria for selecting drug dose adjustments in renally impaired patients. ??The GFR is provided as additional pertinent clinical information. GFR is reported in mL/min/1.73 sq m. Calculation based on the Chronic Kidney Disease Epidemiology Collaboration (CKD- EPI) equation refit without adjustment for race. GFR, EST. >60 >=60 023 10:13 PM CDT [facility] GFR, EST. NONAFRICAN >60 >=60 01/05/2023 10:13 PM CDT [facility] Blood Venipuncture / Unknown 01/05/2023 9:23 PM CDT 01/05/2023 9:51 PM CDT us Jasson Loomis MD CHEMISTRY ORDERABLES Final Resu lt [facility] [address] [place] [address] * Culture, Urine (01/05/2023 9:18 PM CDT) CULTURE RESULTS NO GROWTH WITHIN 1 DAY 01/07/2023 10:33 AM CDT [facility] Urine URINE SPECIMEN / Unknown Non-Phlebotomy Collection / Unknown 01/05/2023 9:18 PM CDT 01/05/2023 9:51 PM CDT us Jasson Loomis MD MICROBIOLOGY - GENERAL ORDERABL ES Final Result [facility] [address] [place] [address], [place] * (ABNORMAL) Urinalysis w/ Reflex (01/05/2023 9:18 PM CDT) SPECIFIC GRAVITY 1.010 1.003 - 1.030 01/05/2023 10:03 PM CDT [facility] URINE PH 5.0 5.0 - 9.0 01/05/2023 10:03 PM CDT [facility] WBC ESTERASE 25 /ul(A) Negative 01/05/2023 10:03 PM CDT [facility] NITRITE Negative Negative 01/05/2023 10:03 PM CDT [facility] PROTEIN, RANDOM URINE 30 mg/dL(A) Negative 01/05/2023 10:03 PM CDT [facility] URINE GLUCOSE, QUAL Negative Negative 01/05/2023 10:03 PM CDT [facility] URINE KETONES 5 mg/dL(A) Negative 01/05/2023 10:03 PM CDT [facility] UROBILINOGEN Normal Normal mg/dL 01/05/2023 10:03 PM CDT [facility] URINE BLOOD 50 /uL(A) Negative yoni/ul 01/05/2023 10:03 PM CDT [facility] URINALYSIS COLOR Yellow 01/06/20 23 10:03 PM CDT [facility] URINALYSIS CLARITY Clear 01/05/2023 10:03 PM CDT [facility] WBC (Urine) 6-10(A) Negative, 0-5 /hpf 01/05/2023 10:03 PM CDT [facility] URINE RBC'S 3-5(A) Negative, 0-2 /hpf 01/05/2023 10:03 PM CDT [facility] EPITHELIAL CELLS Occasional /lpf 01/06/20 10:03 PM CDT [facility] BACTERIA, URINE Negative Negative /hpf 01/05/2023 10:03 PM CDT [facility] Urine URINE SPECIMEN / Unknown Non-Phlebotomy Collection / Unknown 01/05/2023 9:18 PM CDT 01/05/2023 9:51 PM CDT us Jasson Loomis MD URINE ORDERABLES Final Result [facility] [address] [place] [address] documented in this encounter Visit Diagnoses Diagnosis Arthritis of right knee- Primary Unspecified arthropathy, lower leg Chronic pain of right knee Altered gait Abnormality of gait documented in this encounter Administered Medications Inactive Administered Medications - up to 3 most recent administrations Medication Order MAR Action Action Date Dose Rate Site 0.9 % sodium chloride solution at 125 mL/hr, Intravenous, CONTINUOUS, Starting on Emerald 01/05/23 at 2130, Until Mon01/06/23 at 0121 New Bag 01/05/2023 9:29 PM CDT 125 mL/hr 125 mL/hr ketorolac (TORADOL) injection 15 mg 15 mg, Intravenous, ONCE, 1 dose, On Emerald 01/05/23 at 2130 Given 01/05/2023 9:30 PM CDT 15 mg documented in this encounter Active and Recently Administered Medications Times are shown in CDT. Scheduled Medication Order 01/03/2023 01/04/2023 01/05/2023 ketorolac (TORADOL) injection 15 mg (COMPLETED) 15 mg, Intravenous, ONCE, 1 dose, On Emerald 01/05/23 at 2130 2130 (Given - Provid er: Ghanshyam Bautista) Continuous Medication Order 01/03/2023 01/04/2023 01/05/2023 0.9 % sodium chloride solution at 125 mL/hr, Intravenous, CONTINUOUS, Starting on Emerald 01/05/23 at 2130, Until Mon01/06/23 at 0121 2129 (New Bag - Prov ider: Ghanshyam Bautista)2320 (Stopped - Provider: Ghanshyam Bautista) documented in this encounter Care Teams Curator Of Collections Relationship Specialty Start Date End Date Irving Jeffries MD [address] [place] [address] PCP - General Internal Medicine 07/16/21 07/04/24 documented as of this encounter
--- OUTSIDE RECORDS SUMMARY | 2024-07-28 14:09 | XMS_ITS | Encounter Summary ---
Author Organization [employer] Care Team Providers Care Pile Header Name Role Phone Irving Jeffries MD Primary Care Provider [phone]- [phone] Encounter Details Date Type Department Care Team (Latest Contact Info) Description 03/15/2023 Travel Social History Tobacco Use Types Packs/Day [...] on filedocumented in this encounter Care Teams Pile Header Relationship Specialty Start Date End Date Irving Jeffries MD [address] [place] [address] PCP - General Internal Medicine 07/16/21 07/04/24 documented as of this encounter
--- OUTSIDE RECORDS SUMMARY | 2024-07-28 14:09 | XMS_ITS | Encounter Summary ---
Author Organization [facility] HealthCare Address [address] [place] [address] Phone Care Team Providers Care Rotor Winder Name Role Phone Irving Jeffries MD Primary Care Provider [phone]- [phone] Reason for Referral * Consult, Test & Initiate Treatment (Routine) - Closed Specialty Diagnoses / Procedures Referred By Geeta saavedra Referred To Contact Oncology Diagnoses Low platelet count (HCC) Kell Michelle PAC [address] [place] [address] Phone: tel: fax: [facility] [address] [place] [address] Phone: tel: fax: Referral ID Status Reason Start Date Expiration Date Visits Re quested Visits Authorized [id number] Closed 02/02/2023 1 1 Scheduling Instructions Iván is being referred for low platelets Please contact patient for scheduling questions or concerns. Reason for Visit * Reason Comments platlets low Labs Encounter Details Date Type Department Care Team (Late st Contact Info) Description 02/02/2023 9:15 AM CDT Office Visit [facility] - Primary Care - [place] [address] [place] [address] Kell Michelle, PAC [address] [facility] [place] [address] Low platelet count (HCC) (Primary Dx) Discharge Disposition: Discharged to home or Selfcare Social History Tobacco Use Types Packs/Day Years Used Date Smoking Tobacco: Never Smokeless Tobacco: Never Tobacco Cessation:Counseling Given: No Sex and Gender Information Value Date Recorded [...] Sign Reading Time Taken Comments Blood Pressure 135/75 02/02/2023 9:45 AM CDT Pulse 99 02/02/2023 9:45 AM CDT Temperature 36.1 ??C (97 ??F) 02/02/2023 9:45 AM CDT Respiratory Rate - - Oxygen Saturation 96% 02/02/2023 9:45 AM CDT Inhaled Oxygen Concentration - - Weight 93.9 kg (207 lb) 02/02/2023 9:45 AM CDT Height 182.9 cm (6') 02/02/2023 9:45 AM CDT Body Mass Index 28.07 02/02/2023 9:45 AM CDT documented in this encounter Progress Notes * Kell Michelle, PAC - 02/02/2023 9:15 AM CDT Chief Complaint: Chief Complaint Patient presents with ??? platlets low Labs Assessment/Plan: Diagnoses and all orders for this visit: Low platelet count (HCC) - HEMATOLOGY ONCOLOGY REFERRAL; Future No symptoms No active bleeding Refer to HEME Await HEME recommendations Subjective: Mr. Iván Dumont is a 77 y.o. male here today for above. Abnormal labs Low platelets Not a new dx Does not have a bleeding history correction patient Staff has no concerns ROS: Review of Systems All other systems reviewed and are negative. VITAL SIGNS: BP Readings from Last 3 Encounters: 07/06/23 135/75 01/05/23 137/61 Wt Readings from Last 3 Encounters: 02/02/23 207 lb (93.9 kg) 01/05/23 206 lb (93.4 kg) Vitals: 02/02/23 0945 BP: 135/75 Pulse: 99 Temp: 97 ??F (36.1 ??C) TempSrc: Temporal SpO2: 96% Weight: 207 lb (93.9 kg) Height: 6' (1.829 m) Body mass index is 28.07 kg/m??. PHYSICAL EXAM: Physical Exam Vitals reviewed. Constitutional: Appearance: Normal appearance. HENT: Head: Atraumatic. Cardiovascular: Rate and Rhythm: Regular rhythm. Heart sounds: Normal heart sounds. Pulmonary: Breath sounds: Normal breath sounds. Abdominal: General: Bowel sounds are normal. Palpations: Abdomen is soft. Musculoskeletal: General: Normal range of motion. Skin: General: Skin is warm. Neurological: Mental Status: He is alert. Mental status is at baseline. Psychiatric: Mood and Affect: Mood normal. Labs/Studies Reviewed: Lab Results Component Value Date WBC 9.32 01/05/2023 HEMOGLOBIN 12.8 (L) 01/05/2023 HEMATOCRIT 39.0 01/05/2023 PLATELETCNT 102 (L) 01/05/2023 MCV 92.4 01/05/2023 Lab Results Component Value Date SODIUM 135 (L) 01/05/2023 POTASSIUM 3.6 01/05/2023 CHLORIDE 102 01/05/2023 CO2VEN 20 (L) 01/05/2023 ANIONGAP 16.6 01/05/2023 GLUCOSE 117 (H) 01/05/2023 BUN 13 01/05/2023 CREATININE 0.92 01/05/2023 BCRATIO8 14 01/05/2023 TOTALPROTEIN 6.9 01/05/2023 ALBUMIN 4.2 01/05/2023 CALCIUM 8.4 (L) 01/05/2023 TBIL 0.3 01/05/2023 SGOTAST 15 01/05/2023 SGPTALT 13 01/05/2023 ALKALINEPHO 69 01/05/2023 GFRNA >60 01/05/2023 GFRA >60 01/05/2023 No results found for: TSH No results found for: HGBA1C Lab Results Component Value Date LDL 0 07/29/2020 No results found for: PSASCREEN, PSA, PSAFREE, PSAPCNTFREE, PSATOTAL @MAMMOFINDINGS@ No results found. Recent Procedure Details No resulted procedures found. FOLLOWUP: Follow-up Information No follow-ups on file. LOS Today OFFICE/OP EST LVL 3 LOW [...] given to the patient. Patient (or patient field representative/health education) demonstrates verbal understanding of instructions given. Patient [...] Scheduled Referrals Name Type Priority Associated Diagnoses Order Schedule HEMATOLOGY ONCOLOGY REFERRAL Outpatient Referral Routine Low platelet count (HCC) Expected: 02/02/2023, Expires: 02/03/2024 documented as of this encounter Visit Diagnoses Diagnosis Low platelet count (HCC)- Primary documented in this encounter Care Teams Rotor Winder Relationship Specialty Start Date End Date Irving Jeffries MD [address] [place] [address] PCP - General Internal Medicine 07/16/21 07/04/24 documented as of this encounter
--- OUTSIDE RECORDS SUMMARY | 2024-07-28 14:09 | XMS_ITS | Encounter Summary ---
Author Organization [facility] Address [address] [facility] [place] [address] Phone Care Team Providers Care Machine Fastener Name Role Phone Irving Jeffries MD Primary Care Provider Reason for Visit * Reason Comments High Blood Pressure Encounter Details Date Type Department Care Team (Late st Contact Info) Description 01/19/[address] [facility] - Internal Medicine - [place] [address] [place] [address] Irving Jeffries MD [address] [place] [address] [address] Essential hypertension, benign (Primary Dx); GERD without esophagitis; Chronic undifferentiated schizophrenia (HCC) Social History Tobacco Use Types Packs/Day Years Used Date Smoking Tobacco: Never Smokeless Tobacco: Never Sex and Gender Information Value Date Recorded Sex Assigned at Not on file Legal Sex Male 11:18 PM CDT Gender Identity Not on file Sexual Orientation Not on file documented as of this encounter Progress Notes * Irving Jeffries MD - 01/19/2022 3:43 PM CDT Fdc Progress Note 01/19/2022 Iván Dumont 1945 Fdc: [facility] Type of Visit: {BLANK/FREE TEXT:[id number] Medications and allergies has been reviewed and updated. CC/HPI Chief Complaint Patient presents with ??? High Blood Pressure and all are stable. Patient follow-up visit for hypertension and other medical problems. Patient is feeling well. No chest pain or palpitation. No shortness of breath. No headache or dizziness. No abdominal pain nausea vomiting. Tolerating medications well. ROS: Review of Systems [...] orders for this visit: Essential hypertension, benign - CMP (COMPREHENSIVE METABOLIC PANEL); Future GERD without esophagitis Chronic undifferentiated schizophrenia (HCC) Continue current medications and care Continue follow-up with psychiatrist for schizophrenia Check CMP Voice recognition software was utilized in this dictation. Despite proof reading, typographical errors and/or content errors may have occurred. By: Irving Jeffries MD 01/19/2022 3:45 PM CDT documented in this encounter Plan of Treatment Not on file documented as of this encounter Procedures Procedure Name Priority Date/Time Associated Diagnosis Comments CMP (COMPREHENSIVE METABOLIC PANEL) Routine 02/09/2022 12:00 AM CDT Essential hypertension, benign documented in this encounter Results * CMP (COMPREHENSIVE METABOLIC PANEL) (02/09/2022 12:00 AM CDT) Blood 02/09/2022 us Irving Jeffries MD CHEMISTRY ORDERABLES Final Result SCAN documented in this encounter Visit Diagnoses Diagnosis Essential hypertension, benign- Primary GERD without esophagitis Esophageal reflux 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
--- OUTSIDE RECORDS SUMMARY | 2024-07-28 14:09 | XMS_ITS | Encounter Summary ---
Author Organization [facility] Address [address] [place] [place] [address] Phone Care Team Providers Care Silver Wrapper Name Role Phone Irving Jeffries MD Primary Care Provider Ton Ling SAND FILLER, ARCHITECTURAL SALES CONSULTANT Unavailable Reason for Visit * Reason Onset Date Comments Results 07/13/2023 Encounter Details Date Type Department Care Team (Late st Contact Info) Description 07/13/2023 Telephone [facility] - Internal Medicine - [place] [address] [place] [address] Irving Jeffries MD [address] [place] [address] Results Social History Tobacco Use [...] encounter Miscellaneous Notes * Telephone Encounter - Michael Cruz MD - 07/14/2023 3:05 PM RESEARCH SOFTWARE ENGINEER Reviewed his current and prior labs. Isolated thrombocytopenia which is worsening. Per facility nurse, pt has no bleeding or bruising at this time. 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 Will give him dexamethasone 20 mg po bid for 4 days. Prilosec bid. Repeat CBC in 1 week. Pt will need to be placed on fall precautions. Ifany bleeding issue noted, he should go to the ER for platelet transfusion. ARCH SOFTWARE ENGINEER * Addendum Note - Michael Cruz MD - 07/14/2023 3:05 PM CSTAddended by: MICHAEL CRUZ on: 07/14/2023 03:05 PM Modules accepted: Orders ARCH SOFTWARE ENGINEER * Telephone Encounter - Quynh Duncan RN - 07/13/2023 9:06 AM CST Facility called and states pt platelet count on labs is low. Informed them that Dr. Cruz follows pt for this issue but will forward to Dr. Jeffries and Dr. Cruz Platelet level is 9 Facility states no signs of bleeding, bruising, or petechiae at this time. ARCH SOFTWARE ENGINEER documented in this encounter Plan of Treatment Not on file documented as of this encounter Visit Diagnoses Diagnosis Chronic undifferentiated schizophrenia (HCC)- Primary Residual type schizophrenic disorder, chronic condition Low platelet count (HCC) documented in this encounter Care Teams Silver Wrapper Relationship Specialty Start Date End Date Irving Jeffries MD [address] [place] [address] PCP - General Internal Medicine 07/16/21 07/04/24 Ton Ling, SAND FILLER, ARCHITECTURAL SALES CONSULTANT [address] [place] [address] Nurse Practitioner Advanced Practice Nurse 04/24/23 documented as of this encounter
--- OUTSIDE RECORDS SUMMARY | 2024-07-28 14:09 | XMS_ITS | Encounter Summary ---
Author Organization [facility] Address [address] [facility] [place] [address] Phone Care Team Providers Care Servicing Rep Name Role Phone Irving Jeffries MD Primary Care Provider Reason for Visit * Reason Comments Medication Refill Encounter Details Date Type Department Care Team (Late st Contact Info) Description 12/28/2021 Refill [facility] - Internal Medicine - [place] [address] [place] [address] Irving Jeffries MD [address] [place] [address] Medication Refill Social History Tobacco Use Types Packs/Day Years Used Date Smoking Tobacco: Never Assessed Sex and Gender Information Value Date Recorded Sex Assigned at Not on file Legal Sex Male 11:18 PM CDT Gender Identity Not on file Sexual Orientation Not on file documented as of this encounter Miscellaneous Notes * Telephone Encounter - Quynh Duncan RN - 12/28/2021 9:26 AM CDT Medication(s) refilled and signed per [facility] Chronic Medication Refill Standing Order for Pediatricand Adult Patients. Requested Prescriptions Pending Prescriptions Disp Refills ??? lactulose (CHRONULAC) 10 GM/15ML Solution [Pharmacy Med Name: LACTULOSE 10 GM/15 ML SOLUTION] 946 mL 11 Sig: TAKE 30CC BY MOUTH ONCE DAILY Laxatives Protocol Passed - 12/28/2021 8:52 AM Passed - Visit with relevant provider in past 12 months or upcoming 90 days Recent Visits Date Type Provider Dept 07/14/21 Nursing Facility Irving Jeffries MD [facility] 02/03/21 Nursing Facility [facility] Showing recent visits within past 365 days and meeting all other requirements Future Appointments No visits were found meeting these conditions. Showing future appointments within next 90 days and meeting all other requirements documented in this encounter Plan of Treatment Not on file documented as of this encounter Visit Diagnoses Not on filedocumented in this encounter Care Teams Servicing Rep Relationship Specialty Start Date End Date Irving Jeffries MD [address] [place] [address] PCP - General Internal Medicine 07/16/21 07/04/24 documented as of this encounter
--- OUTSIDE RECORDS SUMMARY | 2024-07-28 14:09 | XMS_ITS | Encounter Summary ---
Author Organization [facility] Address [address] [place] [place] [address] Phone Care Team Providers Care Spice Miller Hammer Mill Name Role Phone Irving Jeffries MD Primary Care Provider [phone] Ton Ling APRN, MASTER SHIP Unavailable + [phone] Reason for Visit * Reason Onset Date Comments New Patient Elevated PSA Erroneous Encounter - Disregard 04/25/2023 * Consult, Test & Initiate Treatment (Routine) - Closed Specialty Diagnoses / Procedures Referred By Geeta saavedra Referred To Contact Urology Diagnoses Elevated PSA Irving Jeffries MD [address] [place] [address] Phone: tel: fax: [facility] [address] [place] [address] Phone: tel: fax: Referral ID Status Reason Start Date Expiration Date Visits Re quested Visits Authorized [id number] Closed 03/16/2023 1 1 Encounter Details Date Type Department Care Team (Late st Contact Info) Description 04/24/2023 10:00 AM CDT Office Visit [facility] [address] [place] [address] Irving Jeffries MD [address] [place] [address] Ton Ling APRN, YAA [address] [place] [address] Elevated PSA (Primary Dx); ERRONEOUS ENCOUNTER--DISREGARD Discharge Disposition: Discharged to home or Selfcare [...] Sign Reading Time Taken Comments Blood Pressure 107/75 04/24/2023 9:56 AM CDT Pulse 107 04/24/2023 9:56 AM CDT Temperature - - Respiratory Rate 16 04/24/2023 9:56 AM CDT Oxygen Saturation 99% 04/24/2023 9:56 AM CDT Inhaled Oxygen Concentration - - Weight 93.4 kg (206 lb) 04/24/2023 9:56 AM CDT Height 182.9 cm (6') 04/24/2023 9:56 AM CDT Body Mass Index 27.94 04/24/2023 9:56 AM CDT documented in this encounter Progress Notes * Ton Ling APRN, YAA - 04/24/2023 10:00 AM CDT UROLOGY [facility] [address] [facility], [address] [place] [address] PHONE: FAX: Assessment & Plan Elevated PSA- We discussed the utility and limitations of the PSA as a screening test for prostate cancer. We discussed that an elevated PSA can be due to benign etiologies such as infection or urinary retention, and these should be ruled out prior to consideration of a biopsy. We discussed the AUA Guideline recommendation of screening once every 1-2 years for men aged 55-69 with a 10 year life expectancy, as well as consideration of PSA screening in men between the ages of40-55 if they have significant risk factors such as a strong family history of prostate/ovarian/breast cancer spanning multiple generations, affecting multiple first-degree relatives, and that developed at younger ages. We discussed that isolated PSA elevations should be confirmed before consideration of biopsy. PLAN: -Urinalysis (to rule out infection)- negative -PVR (to rule out retention)- low -Repeat PSA -OMARI- enlarged prostate. No nodules palpated -Prostate MRI to assess for targetable lesions. -We discussed risks of prostate biopsy including pain, bleeding, bothersome urinary symptoms, infection, sepsis, and injury to surrounding structures. -I will call patient with results and coordinate appropriate follow-up. Subjective: 04/24/2023 HPI: HPI: Iván Dumont presents [...] blood or infection PVR- 24cc PSA trend 03/15/2023-9.18 03/01/2023-8.19 The following portions of the patient's chart [...] acute distress. Appearance: Normal appearance. He is normal weight. He is not ill-appearing. HENT: Head: Normocephalic. Cardiovascular: Rate and Rhythm: Normal rate and regular rhythm. Pulmonary: Effort: Pulmonary effort is normal. No respiratory distress. Chest: Chest wall: No tenderness. Abdominal: General: Abdomen is flat. There is no distension. Palpations: Abdomen is soft. Tenderness: There is no abdominal tenderness. There is no guarding. Genitourinary: Prostate: Enlarged. Not tender and no nodules present. Musculoskeletal: General: Normal range of motion. Cervical back: Neck supple. Skin: General: Skin is warm and dry. Capillary Refill: Capillary refill takes less than 2 seconds. Neurological: General: No focal deficit present. Mental Status: He is alert and oriented to person, place, and time. Gait: Gait normal. Lab Results Component Value Date WBC 7.30 03/15/2023 HEMOGLOBIN 13.3 03/15/2023 HEMATOCRIT 41.3 03/15/2023 PLATELETCNT 79 (L) 03/15/2023 MCV 94.3 03/15/2023 Lab Results Component Value Date SODIUM 141 [...] PSASCREEN 9.18 (H) 03/15/2023 PSA 8.19 03/01/2023 Results for orders placed or performed during [...] Final URINE BLOOD 50 /uL (A) Negative kris/ul Final URINALYSIS COLOR Yellow Final URINALYSIS CLARITY [...] RES,US,NON-IMAGING - POCT UA AUTOMATED W/O MICRO - UROLOGY REFERRAL By: Ton Ling APRN, CNP, 04/24/2023, 9:45 AM CDT Primary Care Physician: Irving Jeffries MD * Ton Ling APRN, CNP - 04/24/2023 10:00 AM CDT Erroneous Encounter documented in this encounter Procedure Notes * Sourav Varela RMA - 04/24/2023 10:00 AM CDTAssociated Order(s): RAN,POST- VOID RES,US,NON-IMAGING Procedure(s): RAN,POST-VOID RES,US,NON-IMAGING POCT Bladder Scan collected per standing order of Ton Ling NP on 04/24/2023 PVR= 24 ML documented in this encounter Miscellaneous Notes * Addendum Note - Ton Ling APRN, CNP - 04/24/2023 10:00 AM CDTAddended by: TON LING on: 04/25/2023 04:10 PM Modules accepted: Level of Service, SmartSet documented in this encounter Plan of Treatment Not on file documented as of this encounter Procedures Procedure Name Priority Date/Time Associated Diagnosis Comments RAN,POST-VOID RES,US,NON-IMAGING Routine 04/24/2023 10:00 AM CDT Elevated PSA POCT UA AUTOMATED W/O MICRO Routine 04/24/2023 9:59 AM CDT Elevated PSA documented in this encounter Results * (ABNORMAL) PSA DIAGNOSTIC,TOTAL (04/24/2023 10:44 AM CDT) PSA, TOTAL (PROSTATIC SPECIFIC ANTIGEN) 9.75(H) <4.00 ng/mL 04/24/2023 12:04 PM CDT [facility] Blood Venipuncture / Unknown 04/24/2023 10:44 AM CDT 04/24/2023 11:07 AM CDT Narrative [facility] - 04/24/2023 12:04 PM CDT PSA NOTE: The PSA value should be used in conjunction with information available from clinical evaluation and other diagnostic procedures. The MASSAGE THERAPY INSTRUCTOR Total PSA assay is a Chemiluminescent Microparticle Immunoassay (CMIA) for the quantitative determination of total PSA (both free PSA and PSA complexed to [id number]) in human serum. Ton Ling APRN, CNP CHEMISTRY ORDERABLES F inal Result [facility] [address] [place] [address] * RAN,POST-VOID RES,US,NON-IMAGING (04/24/2023 10:00 AM CDT) Narrative Sourav Varela, RMA - 04/24/2023 10:00 AM CDT Sourav Varela RMEffie ? 04/24/2023 10:26 AM POCT Bladder Scan collected per standing order of Ton Ling PROMOTIONAL DEMONSTRATOR on 04/24/2023 PVR= 24 ML us Ton Ling APRN, CNP [place] [facility] Final Result * POCT UA AUTOMATED W/O MICRO (04/24/2023 9:59 AM CDT) POC UA SPECIFIC GRAVITY 1.000 URINE PH 7.0 5.0 - 9.0 POC URINE LEUKOCYTES Negative Negative Mei/uL POC URINE NITRITE Negative Negative POC URINE PROTEIN Negative Negative mg/dL POC URINE GLUCOSE Negative Negative, Norm mg/dL POC URINE KETONE Negative Negative mg/dL POC URINE UROBILINOGEN Norm Norm, 0.2 E.U./dL (mg/dL), 1 E.U./dL (mg/dL) POC URINE BILIRUBIN Negative Negative mg/dL POC URINE BLOOD INSTRUMENT Negative Negative Kris/uL POC URINE COLOR Yellow POC URINE CLARITY Clear Urine 04/24/2023 9:59 AM CDT Ton Ling APRN, CNP POINT OF CARE TESTING (MANUAL) Final Result documented in this encounter Visit Diagnoses Diagnosis Elevated PSA- Primary Elevated prostate specific antigen (PSA) ERRONEOUS ENCOUNTER--DISREGARD documented in this encounter Care Teams Spice Miller [employer] Mill Relationship Specialty Start Date End Date Irving Jeffries MD [address] [place] [address] PCP - General Internal Medicine 07/16/21 07/04/24 Ton Ling APRN, CNP [address] [place] [address] Nurse Practitioner Advanced Practice Nurse 04/24/23 documented as of this encounter
--- OUTSIDE RECORDS SUMMARY | 2024-07-28 14:09 | XMS_ITS | Encounter Summary ---
Author Organization [employer] Care Team Providers Care Sales Professional Name Role Phone Irving Jeffries MD Primary Care Provider [phone] Ton Ling APRN, FITTER ARMAMENT Unavailable [phone] Michael Ahmadi MD Unavailable [phone] Encounter Details Date Type Department Care Team (Latest Contact Info) Description 08/09/2023 Travel Social History Tobacco Use Types Packs/Day [...] declined 07/28/2023 How often do you attend taoist or bahai serv ices? Patient declined 07/28/2023 Do you [...] medical care, and heating? Patient declined 07/28/2023 [facility] - Occupational Stress [...] in a mcc (including now)? Patient declined 07/28/2023 Sex and [...] Time 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 07/28/2023 09/04/2023 8:45 AM DEPENDENCY DIRECTOR documented as of this encounter Care Teams Sales Professional Relationship Specialty Start Date End Date Irving Jeffries MD [address] [place] [address] PCP - General Internal Medicine 07/16/21 07/04/24 Ton Ling, CUSTOM CLOTHIER, FITTER ARMAMENT [address] [place] [address] Nurse Practitioner Advanced Practice Nurse 04/24/23 Michael Ahmadi MD [address] [place] [address] Consulting Physician Medical Oncology 07/26/23 documented as of this encounter
--- OUTSIDE RECORDS SUMMARY | 2024-07-28 14:10 | XMS_ITS | Encounter Summary ---
Author Organization [facility] Address [address] [place] [address] Phone Care Team Providers Care Conveyor Technician Name Role Phone Phil Styles MD Primary Care Provider [phone] Reason for Visit * Reason Comments Medication Refill Encounter Details Date Type Department Care Team (Late st Contact Info) Description 05/04/2020 Refill [facility] - Internal Medicine - [place] [address] [place] [phone] Irving Jeffries MD [address] [place] [address] Medication Refill Social History Tobacco Use Types Packs/Day Years Used Date Smoking Tobacco: Never Assessed Sex and Gender Information Value Date Recorded Sex Assigned at Not on file Legal Sex Male 11:18 PM CDT Gender Identity Not on file Sexual Orientation Not on file documented as of this encounter Miscellaneous Notes * Telephone Encounter - Maria Guadalupe Scott RN - 05/04/2020 4:22 PM CDT Pended refill documented in this encounter Plan of Treatment Not on file documented as of this encounter Visit Diagnoses Not on filedocumented in this encounter Care Teams Conveyor Technician Relationship Specialty Start Date End Date Phil Styles MD [address] [place] [address] PCP - General Psychiatry 10/26/18 07/15/21 documented as of this encounter
--- OUTSIDE RECORDS SUMMARY | 2024-07-28 14:10 | XMS_ITS | Encounter Summary ---
Author Organization [facility] Address [address] [facility] [place] [address] Phone Care Team Providers Care Microfilm Processor Name Role Phone Phil Styles MD Primary Care Provider [phone] Reason for Visit * Reason Comments Esophageal Reflux Encounter Details Date Type Department Care Team (Late st Contact Info) Description 07/16/2020 Nursing Facility [facility] Medical Group - Internal Medicine - [place] [address] [place] [phone] Irving Jeffries MD [address] [place] [address] GERD without esophagitis (Primary Dx); Mixed hyperlipidemia; Essential hypertension, benign; Chronic undifferentiated schizophrenia (HCC) Social History Tobacco Use Types Packs/Day Years Used Date Smoking Tobacco: Never Assessed Sex and Gender Information Value Date Recorded Sex Assigned at Not on file Legal Sex Male 11:18 PM CDT Gender Identity Not on file Sexual Orientation Not on file documented as of this encounter Progress Notes * Irving Jeffries MD - 07/16/2020 11:59 PM CST Skilled Nursing Progress Note 07/16/2020 Iván Dumont 1945 Skilled Nursing: [facility] Type of Visit: {BLANK/FREE TEXT:[id number] Medications and allergies has been reviewed and updated. CC/HPI Chief Complaint Patient presents with ??? Esophageal Reflux and all are stable. Patient was visit for follow-up for GERD and hyperlipidemia. Patient is feeling well. No chest pain, palpitation, shortness of breath. Tolerating medications well. Also being followed by psychiatrist. ROS: Review of Systems Constitutional: Negative. HENT: Negative. Eyes: Negative. Respiratory: Negative. Cardiovascular: Negative. Gastrointestinal: Negative. Endocrine: Negative. Genitourinary: Negative. Musculoskeletal: Negative. Skin: Negative. Allergic/Immunologic: Negative. Neurological: Negative. Hematological: Negative. Psychiatric/Behavioral: Negative. PHYSICAL EXAM: Vital signes reviewed. Blood pressure stays elevated HEENT- Normocephalic. Conjunctiva-Normal, Viktor SREE, Cervical LN- not palpable. Thyroid- NL Heart- S1 S2- regular Lungs- Clear on auscultation. No wheezing. No rales Abdomen- No distention, soft, non tender, BS-NL LE- No edema Skin- warm and dry ASSESSMENT & PLAN: Diagnoses and all orders for this visit: GERD without esophagitis Mixed hyperlipidemia Essential hypertension, benign Chronic undifferentiated schizophrenia (HCC) Start amlodipine 5 mg daily. Check CMP, lipid profile in 2 weeks. Continue other current medications and care. Continue follow-up with psychiatrist. Voice recognition software was utilized in this dictation. Despite proof reading, typographical errors and/or content errors may have occurred. 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
--- OUTSIDE RECORDS SUMMARY | 2024-07-28 14:10 | XMS_ITS | Encounter Summary ---
Author Organization [facility] Address [address] [place] [address] Care Team Providers Care Custom Furrier Name Role Phone Phil Styles MD Primary Care Provider [phone] Encounter Details Date Type Department Care Team ([facility] Contact Info) Description 07/01/2021 1:30 PM AGRICULTURE SALES ACCOUNT MANAGER Immunization [facility] Mobile Immunization [address] [place] [address] Need for vaccination (Primary Dx) Social History Tobacco Use Types Packs/Day Years Used Date Smoking Tobacco: Never Assessed Sex and Gender Information Value Date Recorded Sex Assigned at Not on file Legal Sex Male 11:18 PM CDT Gender Identity Not on file Sexual Orientation Not on file documented as of this encounter Plan of Treatment Not on file documented as of this encounter Visit Diagnoses Diagnosis Need for vaccination- Primary Need for prophylactic vaccination and inoculation against unspecified single disease documented in this encounter Care Teams Custom Furrier Relationship Specialty Start Date End Date Phil Styles MD [address] [place] [address] PCP - General Psychiatry 10/26/18 07/15/21 documented as of this encounter
--- OUTSIDE RECORDS SUMMARY | 2024-07-28 14:10 | XMS_ITS | Encounter Summary ---
Author Organization [facility] Address [address] [place] [place] [address] Phone Care Team Providers Care Softball Umpire Name Role Phone Phil Styles MD Primary Care Provider [phone] Reason for Visit * Reason Comments Medication Refill Encounter Details Date Type Department Care Team (Late st Contact Info) Description 06/25/2021 Refill [facility] Group - Internal Medicine - [place] [address] [place] [phone] Irving Jeffries MD [address] [place] [address] Medication Refill Social History Tobacco Use Types Packs/Day Years Used Date Smoking Tobacco: Never Assessed Sex and Gender Information Value Date Recorded Sex Assigned at Not on file Legal Sex Male 11:18 PM CDT Gender Identity Not on file Sexual Orientation Not on file documented as of this encounter Miscellaneous Notes * Telephone Encounter - Myla Quintanilla RN - 06/25/2021 1:19 PM CST Medication(s) refilled and signed per [facility] Chronic Medication Refill Standing Order for Pediatricand Adult Patients. Requested Prescriptions Pending Prescriptions Disp Refills ??? omeprazole (PriLOSEC) 20 MG CAPSULE DELAYED RELEASE [Pharmacy Med Name: OMEPRAZOLE DR 20 MG CAPSULE] 30 Capsule 6 Sig: TAKE ONE CAPSULE BY MOUTH EVERY DAY Proton Pump Inhibitors Protocol Passed - 06/25/2021 1:07 PM Passed - Visit with relevant provider in past 12 months or upcoming 90 days Recent Visits Date Type Provider Dept 02/03/21 Nursing Facility [facility] [place] 07/16/20 Nursing Facility Irving Jeffries MD [facility] Showing recent visits within past 365 days and meeting all other requirements Future Appointments No visits were found meeting these conditions. Showing future appointments within next 90 days and meeting all other requirements PROGRAMMER documented in this encounter Plan of Treatment Not on file documented as of this encounter Visit Diagnoses Not on filedocumented in this encounter Care Teams Softball Umpire Relationship Specialty Start Date End Date Phil Sytles MD [address] [place] [address] PCP - General Psychiatry 10/26/18 07/15/21 documented as of this encounter
--- OUTSIDE RECORDS SUMMARY | 2024-07-28 14:10 | XMS_ITS | Encounter Summary ---
Author Organization [facility] Address [address] [place] [address] Phone Care Team Providers Care Analytical Technician Name Role Phone Phil Styles MD Primary Care Provider [phone] Reason for Visit * Reason Comments Medication Refill Encounter Details Date Type Department Care Team (Late st Contact Info) Description 11/16/2020 Refill [facility] - [facility] - [place] [address] [place] [phone] Irving Jeffries MD [address] [address] Medication Refill Social History Tobacco Use Types Packs/Day Years Used Date Smoking Tobacco: Never Assessed Sex and Gender Information Value Date Recorded Sex Assigned at Not on file Legal Sex Male 11:18 PM CDT Gender Identity Not on file Sexual Orientation Not on file documented as of this encounter Miscellaneous Notes * Telephone Encounter - Myla Quintanilla RN - 11/16/2020 9:47 AM CDT Please review and sign. documented in this encounter Plan of Treatment Not on file documented as of this encounter Visit Diagnoses Not on filedocumented in this encounter Care Teams Analytical Technician Relationship Specialty Start Date End Date Phil Styles MD [address] [place] [address] PCP - General Psychiatry 10/26/18 07/15/21 documented as of this encounter
--- OUTSIDE RECORDS SUMMARY | 2024-07-28 14:10 | XMS_ITS | Encounter Summary ---
Author Organization [facility] Address [address] [facility] [place] [address] Phone Care Team Providers Care Environmental Emergencies Planner Name Role Phone Phil Styles MD Primary Care Provider [phone] Irving Jeffries MD Primary Care Provider [phone] Ton Ling DIRECTOR OF CLINICAL SERVICES, KNITTER OPERATOR Unavailable Ame Scanlon DIRECTOR OF CLINICAL SERVICES, KNITTER OPERATOR Unavailable [phone] Michael Ahmadi MD Unavailable [phone] Reason for Visit * Reason Comments Medication Refill Encounter Details Date Type Department Care Team (Late st Contact Info) Description 08/17/2020 Refill [facility] - Internal Medicine - [place] [address] [place] [address] Irving Jeffries MD [address] [place] [address] Medication Refill Social History Tobacco Use Types Packs/Day Years Used Date Smoking Tobacco: Never Assessed Sex and Gender Information Value Date Recorded Sex Assigned at Not on file Legal Sex Male 11:18 PM CDT Gender Identity Not on file Sexual Orientation Not on file documented as of this encounter Miscellaneous Notes * Telephone Encounter - Myla Quintanilla RN - 08/17/2020 10:29 AM CERTIFIED ORTHOTIST PRACTICE MANAGER Please review and sign. IFIED ORTHOTIST PRACTICE MANAGER documented in this encounter Plan of Treatment Not on file documented as of this encounter Visit Diagnoses Not on filedocumented in this encounter Additional Health Concerns Infection Onset Date Last Indicated Resolved Time COVID - 19 07/28/2023 07/28/2023 08/01/2023 9:07 AM CERTIFIED ORTHOTIST PRACTICE MANAGER RSV 07/28/2023 07/28/2023 08/04/2023 9:56 AM CERTIFIED ORTHOTIST PRACTICE MANAGER 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 07/28/2023 09/04/2023 8:45 AM CERTIFIED ORTHOTIST PRACTICE MANAGER COVID - 09/02/2023 09/02/2023 09/04/2023 8:45 AM CERTIFIED ORTHOTIST PRACTICE MANAGER documented as of this encounter Care Teams Environmental Emergencies Planner Relationship Specialty Start Date End Date Phil Styles MD [address] [place] [address] PCP - General Psychiatry 10/26/18 07/15/21 Irving Jeffries MD [address] [place] [address] PCP - General Internal Medicine 07/16/21 07/04/24 Ton Ling APRN, KNITTER OPERATOR [address] [place] [address] Nurse Practitioner Advanced Practice Nurse 04/24/23 Ame Scanlon APRN, KNITTER OPERATOR #[address] [facility] [address] [place] [address] Nurse Practitioner Cardiology 08/23/23 Michael Ahmadi MD [address] [place] [address] Consulting Physician Medical Oncology 07/26/23 documented as of this encounter
--- OUTSIDE RECORDS SUMMARY | 2024-07-28 14:10 | XMS_ITS | Encounter Summary ---
Author Organization [facility] Address [address] [facility] [address] Phone Care Team Providers Care Motor Vehicle Escort Driver Name Role Phone Phil Styles MD Primary Care Provider [phone] Reason for Visit * Reason Comments Hypertension Encounter Details Date Type Department Care Team (Late st Contact Info) Description 07/14/2021 Nursing Facility [facility] Medical Group - Internal Medicine - [place] [address] [place] [address] Irving Jeffries MD [address] [place] [address] Essential hypertension, benign (Primary Dx); Mixed hyperlipidemia; GERD without esophagitis Social History Tobacco Use Types Packs/Day Years Used Date Smoking Tobacco: Never Assessed Sex and Gender Information Value Date Recorded Sex Assigned at Not on file Legal Sex Male 11:18 PM CDT Gender Identity Not on file Sexual Orientation Not on file documented as of this encounter Progress Notes * Irving Jeffries MD - 07/14/2021 4:07 PM CST Nursing Facility Progress Note 07/14/2021 Iván Dumont 1945 Intermediate Facility: [facility] Care Type of Bed: Skilled Type of Visit: subsequent. Medications and allergies has been reviewed and updated. Nursing report reviewed. CC/HPI Chief Complaint Patient presents with ??? Hypertension and all are stable. Patient had follow-up visit for hypertension and other medical problems. Feeling well. ROS: Review of Systems Constitutional: Negative. HENT: Negative. Eyes: Negative. Respiratory: Negative. Cardiovascular: Negative. Gastrointestinal: Negative. Endocrine: Negative. Genitourinary: Negative. Musculoskeletal: Negative. Skin: Negative. Allergic/Immunologic: Negative. Neurological: Negative. Hematological: Negative. Psychiatric/Behavioral: Negative. PHYSICAL EXAM: Vital signes reviewed. HEENT- Normocephalic. Conjunctiva-Normal, Viktor SREE, Cervical LN- not palpable. Thyroid- NL Heart- S1 S2- regular Lungs- Clear on auscultation. No wheezing. No rales Abdomen- No distention, soft, non tender, BS-NL LE- No edema Skin- warm and dry ASSESSMENT & PLAN: Diagnoses and all orders for this visit: Essential hypertension, benign Mixed hyperlipidemia GERD without esophagitis Check BMP Continue current medications and care Nursing report reviewed. Voice recognition software was utilized in this dictation. Despite proof reading, typographical errors and/or content errors may have occurred. By: Irving Jeffries MD 07/14/2021 4:08 PM AIR CONDITIONING UNIT ASSEMBLER CONDITIONING UNIT ASSEMBLER documented in this encounter Plan of Treatment Not on file documented as of this encounter Visit Diagnoses Diagnosis Essential hypertension, benign- Primary Mixed hyperlipidemia GERD without esophagitis Esophageal reflux documented in this encounter Care Teams Motor Vehicle Escort Driver Relationship Specialty Start Date End Date Phil Styles MD [address] [place] [address] PCP - General Psychiatry 10/26/18 07/15/21 documented as of this encounter
--- OUTSIDE RECORDS SUMMARY | 2024-07-28 14:10 | XMS_ITS ---
Author Organization [facility] Address [address] [place] [address] Phone Care Team Providers Care Director [employer] Name Role Phone oTn Ling APRN, FLUE LINING DIPPER Unavailable [phone] Ame Scanlon APRN, FLUE LINING DIPPER Unavailable [phone] Michael Ahmadi MD Unavailable [phone] [facility] Chronic Care Management Status:Closed (Closed) Start date:12/19/2023 Enrollment reason:Identified using claims or encounter data End date:12/19/2023 Close reason:Not eligible Related social drivers of health:Intimate Partner Violence, Social Connections, Alcohol Use, Tobacco Use, Financial Resource Strain,Depression, Stress, Physical Activity, Food Insecurity, Transportation Needs, Housing Stability, Utilities Continued Care and Services Coordination
--- OUTSIDE RECORDS SUMMARY | 2024-07-28 14:10 | XMS_ITS | Encounter Summary ---
Author Organization [facility] Address [address] [facility] [place] [address] Phone Care Team Providers Care Ferryboat Operator Cable Name Role Phone Phil Styles MD Primary Care Provider [phone] Reason for Visit * Reason Comments Hypertension Encounter Details Date Type Department Care Team (Late st Contact Info) Description 02/03/2021 Nursing Facility [facility] Medical Group - Internal Medicine - [place] [address] [place] [phone] Irving Jeffries MD [address] [place] [address] Essential hypertension, benign (Primary Dx); Mixed hyperlipidemia; [...] Progress Notes * Irving Jeffries MD - 02/03/2021 5:48 PM CDT Snf Progress Note 02/03/2021 Iván Dumont 1945 Snf: [facility] Type of Visit: {BLANK/FREE TEXT:[id number] Medications and allergies has been reviewed and updated. CC/HPI Chief Complaint Patient presents with ??? Hypertension and all are stable. Patient is seen for follow-up for hypertension and other medical problems. Patient is doing well. Tolerating medications well. Being followed by psychiatrist also ROS: Review of Systems Constitutional: Negative. HENT: Negative. Eyes: Negative. Respiratory: Negative. Cardiovascular: Negative. Gastrointestinal: Negative. Endocrine: Negative. Genitourinary: Negative. Musculoskeletal: Negative. Skin: Negative. Allergic/Immunologic: Negative. Neurological: Negative. Hematological: Negative. Psychiatric/Behavioral: Negative. . PHYSICAL EXAM: Vital signes reviewed. HEENT- Normocephalic. Conjunctiva-Normal, Viktor SREE, Cervical LN- not palpable. Thyroid- NL Heart- S1 S2- regular Lungs- Clear on auscultation. No wheezing. No rales Abdomen- No distention, soft, non tender, BS-NL LE- No edema Skin- warm and dry ASSESSMENT & PLAN: Diagnoses and all orders for this visit: Essential hypertension, benign Mixed hyperlipidemia GERD without esophagitis Lab results from 12/15/2020 reviewed. Continue current medications and care Voice recognition software was utilized in this dictation. Despite proof reading, typographical errors and/or content errors may have occurred. By: Irving Jeffries MD 02/03/2021 5:49 PM CDT documented in this encounter Plan of Treatment Not on file documented as of this encounter Visit Diagnoses Diagnosis Essential hypertension, benign- Primary Mixed hyperlipidemia GERD without esophagitis Esophageal reflux documented in this encounter Care Teams Ferryboat Operator Cable Relationship Specialty Start Date End Date Phil Styles MD [address] [place] [address] PCP - General Psychiatry 10/26/18 07/15/21 documented as of this encounter
--- OUTSIDE RECORDS SUMMARY | 2024-07-28 14:10 | XMS_ITS | Encounter Summary ---
Author Organization [facility] Address [address] [place] [address] Phone Care Team Providers Care Milk Sampler Name Role Phone Phil Styles MD Primary Care Provider [phone] Reason for Visit * Reason Comments Medication Refill Encounter Details Date Type Department Care Team (Late st Contact Info) Description 10/19/2020 Refill [facility] - Internal [facility] - [place] [address] [place] [phone] Irving Jeffries MD [address] [address] Medication Refill Social History Tobacco Use Types Packs/Day Years Used Date Smoking Tobacco: Never Assessed Sex and Gender Information Value Date Recorded Sex Assigned at Not on file Legal Sex Male 11:18 PM CDT Gender Identity Not on file Sexual Orientation Not on file documented as of this encounter Miscellaneous Notes * Telephone Encounter - Myla Quintanilla RN - 10/19/2020 3:35 PM CDT Please review and sign. documented in this encounter Plan of Treatment Not on file documented as of this encounter Visit Diagnoses Not on filedocumented in this encounter Care Teams Milk Sampler Relationship Specialty Start Date End Date Phil Styles MD [address] [place] [address] PCP - General Psychiatry 10/26/18 07/15/21 documented as of this encounter
== END 2024-07-21 14:10 | disposition expired ==
PROVIDERS: Emergency Provider Student in an Organized Health Care Education/Training Program; PCP Internal Medicine
DX: I46.9 Cardiac arrest, cause unspecified (principal)
CPT/HCPCS: 99283; J0171